=== PATIENT | female | born 1950 | race Caucasian/White ===

== ENCOUNTER → 2016-12-04 | Outpatient (CLI) | payer MEDICARE ==
[~2016-12-04] MED LIST: ALEN70TA47 PO; ALPR0.5T PO; ALPR0.5T7 PO; ASPI-586 PO; BISO1TAB3 PO; BISO1TAB39 PO; BUDE10.2 IH; CALC-722 PO; CANA1TAB3 PO; CODE-54 PO; DIPH1TAB25 PO; ESOM20CA32 PO; EZET10TA5 PO; GABA-488 PO; GLIM4TAB PO; IBUP-30 PO; LOSA100T28 PO; MECL-106 PO; METF500T4 PO; MTF500T PO; OM-31CAP9 PO; ONDA8TAB12 PO; ONDA8TAB6 PO; PROM25TA14 PO; TERB15CR TP; TRIF1TAB PO
--- NOTE | 2016-12-04 14:30 | Diagnostic Imaging Report ---
PROCEDURE: US Bilateral lower extremity arterial. TECHNIQUE: Multiple real-time grayscale images are obtained through both lower extremity arterial systems with color Doppler imaging and color Doppler spectral analysis. INDICATION: Leg discoloration. There are no previous studies available for comparison. There is fairly good arterial blood flow to both lower extremities. Biphasic waveforms were seen at all levels, and there is no abrupt alteration of velocities to suggest a hemodynamically significant stenosis. IMPRESSION: 1. There is no evidence for a hemodynamically significant stenosis of the arterial system of either lower extremity. 2. If clinical concern regarding an underlying abnormality persists, then CTA of of the aorta with bilateral runoffs would be recommended. Dictated by: Dictated on workstation # [id number]
== END ==
LOC: RAD 11:26
PROVIDERS: ATTEND Nurse Practitioner Family
DX: M79.605 Pain in left leg (principal); M79.604 Pain in right leg
CPT/HCPCS: 93925

== ENCOUNTER 2017-01-04 13:05 | Emergency (ER) | payer MEDICARE ==
[~2017-01-04] VITALS: Ht 157.5 cm; Wt 71.2 kg
[~2017-01-04 13:05] MED LIST changes: -TERB15CR TP
[2017-01-04] MEDS ORDERED: morphine INJ 10 MG/ML 1ML (SYR OR VIAL) IM STA (14:16)
--- NOTE | 2017-01-04 14:22 | ED Integumentary General ---
General Chief Complaint: Skin/Wound Problems Stated Complaint: OPEN WOUNDS B FEET Nursing Triage Note: TO ROOM 10 WITH COMPLAINTS OF ONGOING WOUNDS ON BILAT TOP OF FEET FOR 4 MONTHS. HAS SEEN THE DR MULTIPLE TIMES AND HAS BEEN ON X4 DIFFERENT ANTIBIOTICS, CREAMS , STEROIDS. TODAY WENT TO [facility] AND AFTER A WOUND CX AND MAKING AN APPT WITH THE DERMONTOLGIST THEY SENT HER TO THE ER. Source: patient, family Exam Limitations: no limitations History of Present Illness Time seen by provider: 14:00 Initial Comments 66-year-old female presents to the emergency department with complaints of open wounds of the bilateral tops of her feet. Patient states she has been seen by her primary care physician several times and placed on 4 different antibiotics and multiple creams without improvement in symptoms. Patient states she was on a steroid cream for approximately one week, but was unable to tolerate it due to burning. Patient states the only cream that seemed to improve symptoms with Lamisil, that she stopped this at the request of her physician. Patient was seen at [facility] today with cultures obtained. States she was then sent to the emergency department for evaluation. Patient is scheduled to see as an outpatient for further evaluation. Timing/Duration: getting worse, other (4 months) Location: feet Possible Cause: no cause identified Modifying Factors: worse with other (worse with palpation, hot showers, and topical creams.) Allergies and Home Medications Allergies Coded Allergies: Tetanus Vaccines & Toxoid (Unverified Allergy, Severe, 12/17/11) SWOLLEN HOT RED ARM ampicillin (Unverified Allergy, Unknown, 12/20/15) Home Medications Alendronate Sodium 70 Mg Tablet, 70 MG PO Gaines, (Reported) Alprazolam 0.5 Mg Tablet, 0.5 MG PO TID, (Reported) Aspirin 81 Mg Tablet.dr, 81 MG PO DAILY, (Reported) Bisoprolol Fumarate/Hctz 1 Each Tablet, 2 TAB PO DAILY, (Reported) Budesonide/Formoterol Fumarate 10.2 Gm Hfa.aer.ad, 2 PUFF IH BID PRN for SHORTNESS OF BREATH, (Reported) Calcium Carb & Citrate/Vit D3 1 Each Tablet.er, 2 TAB PO DAILY, (Reported) Esomeprazole Magnesium 22.3 Mg Capsule.dr, 22.3 MG PO DAILY, (Reported) Ezetimibe 10 Mg Tablet, 10 MG PO HS, (Reported) Gabapentin 300 Mg Capsule, 600 MG PO TID, (Reported) TAKES 2 (300MG) CAPSULES Glimepiride 4 Mg Tablet, 4 MG PO BID, (Reported) Ibuprofen 200 Mg Tablet, 600 MG PO TID PRN for PAIN, (Reported) TAKES 3 (200MG) TABLETS Losartan Potassium 100 Mg Tablet, 100 MG PO 1900, (Reported) Meclizine HCl 25 Mg Tablet, 25 MG PO TID PRN for DIZZINESS, (Reported) Metformin HCl 500 Mg Tablet, 500 MG PO TIDAC, (Reported) Ondansetron HCl 8 Mg Tablet, 8 MG PO Q8H PRN for NAUSEA, (Reported) Promethazine HCl 25 Mg Tablet, 25 MG PO Q6H PRN for NAUSEA/VOMITING, (Reported) Terbinafine HCl 15 Gm Cream..g., 15 GM TP BID, #1 Ref 1 apply to the affected area BID x4-6 wks. Continue med for 1 wk after symptoms resolve. Prescribed by: ODIN RITCHIE on 01/04/17 1511 Trifluoperazine HCl 1 Mg Tablet, 1 MG PO BID, (Reported) Constitutional: No chills, No fever, No malaise Respiratory: no symptoms reported Cardiovascular: no symptoms reported Gastrointestinal: no symptoms reported Musculoskeletal: see HPI, other (bilateral foot pain) Skin: see HPI, pruritus, rash, other (burning, open wounds.) Psychiatric/Neurological: No Symptoms Reported All Other Systems Reviewed Negative Unless Noted: Yes (Negative excepted noted.) Past [id number] Hx Patient Social History Alcohol Use: Denies Use Recreational Drug Use: No Smoking Status: Current Everyday Smoker Type Used: Cigarettes Recent Foreign Travel: No Contact w/Someone Who Travel: No Recent Infectious Disease Expo: No Recent Hopitalizations: No Immunizations Up To Date Date of Pneumonia Vaccine: Mar 19, 2011 Date of Influenza Vaccine: Mar 19, 2011 Seasonal Allergies Seasonal Allergies: Yes Surgeries History of Surgeries: Yes ( CAROTID 2010) Surgeries: Hysterectomy, Vascular Surgery Respiratory History of Respiratory Disorde: No Respiratory Disorders: COPD Currently Using CPAP: No Currently Using BIPAP: No Cardiovascular History of Cardiac Disorders: Yes Cardiac Disorders: Hypertension, Peripheral Vascular Neurological History of Neurological Disord: Yes Neurological Disorders: Dementia 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 System Hx 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 Disorders: No Genitourinary History of Genitourinary Disor: Yes Genitourinary Disorders: UTI-Chronic Gastrointestinal History of Gastrointestinal Di: Yes Gastrointestinal Disorders: Gastrointestinal Bleed, Diverticulosis, Chronic Diarrhea Musculoskeletal History of Musculoskeletal Dis: Yes (ARTHRITIS) Musculoskeletal Disorders: Degenerate Disk Disease Endocrine History of Endocrine Disorders: Yes (BS 172 BEFORE ADMISSION) Endocrine Disorders: Diabetes, Non-Insulin dep HEENT HEENT Disorders: Cataract Loss of Vision: Denies Cancer History of Cancer: No Psychosocial History of Psychiatric Problem: Yes Behavioral Health Disorders: Anxiety Integumentary History of Skin or Integumenta: No Blood Transfusions History of Blood Disorders: No Family Medical History Significant Family History: No Pertinent Family Hx Family Medial History: Arthritis G8 SISTER G8 SISTER Cataracts 19 MOTHER Diabetes mellitus G8 SISTER FH: COPD (chronic obstructive pulmonary disease) 19 MOTHER FH: CVA (cerebrovascular accident) 19 FATHER FH: heart attack 19 FATHER Glaucoma 19 MOTHER Hypercholesterolemia 19 FATHER Hypertension 19 FATHER Physical Exam Vital Signs Vital Sign - Last 12Hours 01/04/17 13:25 Temp 98.0 Pulse 73 Resp 16 B/P (MAP) 188/87 Pulse Ox 96 Capillary Refill : Less Than 3 Seconds General Appearance: WD/WN, no apparent distress Cardiovascular: normal peripheral pulses, regular rate, rhythm, no murmur Respiratory: lungs clear, normal breath sounds, no respiratory distress, no accessory muscle use Extremities: normal range of motion, no calf tenderness, normal capillary refill, pedal edema (1+ pedal edema bilaterally), other (scaly, erythematous rash of the bilat dorsal feet with several ulcerations. no active drainage or warmth noted.) Neurologic/Psychiatric: no motor/sensory deficits, alert, normal mood/affect, oriented x 3 Skin: normal color, warm/dry, rash (scaly, erythematous rash of the bilat dorsal feet with several ulcerations. no active drainage or warmth noted.) Skin Problem Location: lower extremities (bilat dorsal feet) Skin Problem Character: rash (scaly, erythematous rash of the bilat dorsal feet with several ulcerations. no active drainage or warmth noted.), tenderness Progress/Results/Core Measures Results/Orders My Orders Orders - ODIN RITCHIE Morphine Injection (Morphine Injection (01/04/17 14:16) Oxycodone/Apap 5/325mg Tablet (Percocet (01/04/17 15:16) Vital Signs/I&O Vital Sign - Last 12Hours 01/04/17 01/04/17 13:25 15:46 Temp 98.0 Pulse 73 69 Resp 16 16 B/P (MAP) 188/87 Pulse Ox 96 95 Blood Pressure Mean: 120 Departure Communication (Admissions) Progress Notes Patient seen and evaluated. Patient history and exam findings are consistent with tinea pedis. plan for dsch to home with terbinafine and aluminum acetate. Patient advised to follow-up with Dr. Vera for further management. Impression Impression: Primary Impression: Tinea pedis of both feet Disposition: HOME, SELF-CARE Condition: Improved Departure-Patient Inst. Decision time for Depature: 14:19 Referrals: RACHEL BAKER MD (PCP/Family) Primary Care Physician ALLISON VERA MD Patient Instructions: Athlete's Foot (DC) Add. Discharge Instructions: All discharge instructions reviewed with patient and/or family. Voiced understanding. Medications as instructed. Topical cream may take up to 4-6 wks to resolve the rash. Elevate the bilateral lower extremities on pillows. Avoid soiling the wounds. Change dressings twice daily and as needed for moisture and soiling. Follow-up with Dr. Vera for recheck as previously scheduled. Return to the emergency department for worsened pain, redness, drainage, fever, or any other concerns. Scripts Terbinafine HCl (Athlete's Foot AF) 15 Gm Cream..g. 15 GM TP BID, #1 TUBE 1 Refill apply to the affected area BID x4-6 wks. Continue med for 1 wk after symptoms resolve. Prov: ODIN RITCHIE 01/04/17 Images Extremities-Lower 1 - Rash 2 - Rash ODIN RITCHIE Jan 04, 2017 14:22
[2017-01-04] MEDS ORDERED: TERB15CR TP (15:11)
[2017-01-04] MEDS ORDERED: oxyCODONE/APAP 5/325MG (PERCOCET 5) TABLET PO STA (15:16)
[2017-01-04 15:46] VITALS: BP 152/59
== END 2017-01-04 15:46 | disposition home or self-care (01) ==
LOC: EDUNIT# 13:05 → ER 13:09
DX: B35.3 Tinea pedis (principal); F41.9 Anxiety disorder, unspecified; E11.51 Type 2 diabetes mellitus with diabetic peripheral angiopathy without gangrene; I73.9 Peripheral vascular disease, unspecified; J44.9 Chronic obstructive pulmonary disease, unspecified; M19.90 Unspecified osteoarthritis, unspecified site; F03.90 Unspecified dementia, unspecified severity, without behavioral disturbance, psychotic disturbance, mood disturbance, and anxiety; I10 Essential (primary) hypertension; F17.210 Nicotine dependence, cigarettes, uncomplicated; Z87.19 Personal history of other diseases of the digestive system; Z79.82 Long term (current) use of aspirin; Z79.84 Long term (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 of oral hypoglycemic drugs; Z82.49 Family history of ischemic heart disease and other diseases of the circulatory system; Z87.440 Personal history of urinary (tract) infections; Z90.710 Acquired absence of both cervix and uterus
CPT/HCPCS: 96372; 99284

== ENCOUNTER 2017-03-07 14:53 | Outpatient (RCR) | payer MEDICARE ==
[2017-02-07 14:36] LABS: ABSOLUTE RETIC # 75 10e9/L (24-90); BASOPHILS % (AUTO) 0 % (0-10); EOSINOPHILS # (AUTO) 0.2 10^3/uL (0.0-0.3); EOSINOPHILS % (AUTO) 1 % (0-10); HEMATOCRIT 46 % (35-52); HEMOGLOBIN 16.5 G/DL (11.5-16.0); LYMPHOCYTES # (AUTO) 3.1 X 10^3 (1.0-4.0); LYMPHOCYTES % (AUTO) 22 % (12-44); MEAN CORPUSCULAR HEMOGLOBIN 31 PG (25-34); MEAN CORPUSCULAR HGB CONC 36 G/DL (32-36); MEAN CORPUSCULAR VOLUME 85 FL (80-99); MONOCYTES # (AUTO) 0.8 X 10^3 (0.0-1.0); MONOCYTES % (AUTO) 6 % (0-12); NEUTROPHILS # (AUTO) 9.8 X 10^3 (1.8-7.8); NEUTROPHILS % (AUTO) 71 % (42-75); PLATELET COUNT 169 10^3/uL (130-400); RED BLOOD COUNT 5.41 10^6/uL (4.35-5.85); RED CELL DISTRIBUTION WIDTH 15.3 % (10.0-14.5); RETICULOCYTE % 1.39 % (0.50-2.40); WHITE BLOOD COUNT 13.9 10^3/uL (4.3-11.0)
[2017-02-07 14:55] LABS: ALANINE AMINOTRANSFERASE 17 U/L (0-55); ALKALINE PHOSPHATASE 77 U/L (40-136); BILIRUBIN,TOTAL 0.6 MG/DL (0.1-1.0); BUN/CREATININE RATIO 15; CALCIUM 9.1 MG/DL (8.5-10.1); CARBON DIOXIDE 24 MMOL/L (21-32); CHLORIDE 96 MMOL/L (98-107); CREATININE SERUM 0.84 MG/DL (0.60-1.30); GFR ESTIMATED > 60; GLUCOSE 260 MG/DL (70-105); POTASSIUM 4.3 MMOL/L (3.6-5.0); SODIUM 129 MMOL/L (135-145); TOTAL PROTEIN 7.5 GM/DL (6.4-8.2)
[2017-02-07 15:53] LABS: EOSINOPHILS % (MANUAL) 1 %; LYMPHOCYTES % (MANUAL) 29 %; MONOCYTES % (MANUAL) 4 %; NEUTROPHILS % (MANUAL) 66 %
[2017-02-07 15:54] LABS: RBC MORPH NORMAL
[~2017-03-07 14:53] MED LIST changes: +TERB15CR TP
[2017-03-07 15:01] LABS: BASOPHILS % (AUTO) 0 % (0-10); EOSINOPHILS # (AUTO) 0.2 10^3/uL (0.0-0.3); EOSINOPHILS % (AUTO) 1 % (0-10); HEMATOCRIT 44 % (35-52); HEMOGLOBIN 16.5 G/DL (11.5-16.0); LYMPHOCYTES # (AUTO) 3.5 X 10^3 (1.0-4.0); LYMPHOCYTES % (AUTO) 24 % (12-44); MEAN CORPUSCULAR HEMOGLOBIN 32 PG (25-34); MEAN CORPUSCULAR HGB CONC 37 G/DL (32-36); MEAN CORPUSCULAR VOLUME 85 FL (80-99); MEAN PLATELET VOLUME 8.7 FL (7.4-10.4); MONOCYTES # (AUTO) 0.9 X 10^3 (0.0-1.0); MONOCYTES % (AUTO) 6 % (0-12); NEUTROPHILS % (AUTO) 69 % (42-75); PLATELET COUNT 206 10^3/uL (130-400); RED BLOOD COUNT 5.22 10^6/uL (4.35-5.85); WHITE BLOOD COUNT 14.6 10^3/uL (4.3-11.0)
== END 2017-05-08 | disposition home or self-care (01) ==
LOC: ONC 14:53
PROVIDERS: ATTEND Internal Medicine Hematology & Oncology
DX: D72.829 Elevated white blood cell count, unspecified (principal); D58.2 Other hemoglobinopathies; E11.43 Type 2 diabetes mellitus with diabetic autonomic (poly)neuropathy; I10 Essential (primary) hypertension; E78.00 Pure hypercholesterolemia, unspecified; J44.9 Chronic obstructive pulmonary disease, unspecified; I65.22 Occlusion and stenosis of left carotid artery; I25.10 Atherosclerotic heart disease of native coronary artery without angina pectoris; K21.9 Gastro-esophageal reflux disease without esophagitis; M81.0 Age-related osteoporosis without current pathological fracture; F41.9 Anxiety disorder, unspecified; F32.9 Major depressive disorder, single episode, unspecified; F17.210 Nicotine dependence, cigarettes, uncomplicated; Z90.710 Acquired absence of both cervix and uterus; Z79.899 Other long term (current) drug therapy
CPT/HCPCS: 36415; 80053; 81206; 81270; 83615; 84155; 84165; 85007; 85025; 85027; 85045; 99213; 99214

== ENCOUNTER → 2017-04-26 | Outpatient (CLI) | payer MEDICARE ==
[2017-04-26 10:46] LABS: HEMOGLOBIN 15.8 G/DL (11.5-16.0); MEAN PLATELET VOLUME 8.7 FL (7.4-10.4); RED BLOOD COUNT 5.01 10^6/uL (4.35-5.85); RED CELL DISTRIBUTION WIDTH 14.9 % (10.0-14.5); WHITE BLOOD COUNT 10.6 10^3/uL (4.3-11.0)
[2017-04-26 11:07] LABS: ALANINE AMINOTRANSFERASE 10 U/L (0-55); ALBUMIN 4.1 GM/DL (3.2-4.5); ALKALINE PHOSPHATASE 66 U/L (40-136); BILIRUBIN,TOTAL 0.5 MG/DL (0.1-1.0); BUN/CREATININE RATIO 15; CALCIUM 9.9 MG/DL (8.5-10.1); CARBON DIOXIDE 26 MMOL/L (21-32); CHLORIDE 96 MMOL/L (98-107); CREATININE SERUM 0.82 MG/DL (0.60-1.30); GFR ESTIMATED > 60; GLUCOSE 136 MG/DL (70-105); POTASSIUM 3.9 MMOL/L (3.6-5.0); SODIUM 135 MMOL/L (135-145); TOTAL PROTEIN 7.3 GM/DL (6.4-8.2)
== END ==
LOC: HH 07:00
PROVIDERS: ATTEND Family Medicine
DX: I25.10 Atherosclerotic heart disease of native coronary artery without angina pectoris (principal); E11.9 Type 2 diabetes mellitus without complications; I10 Essential (primary) hypertension
CPT/HCPCS: 80053; 85027

== ENCOUNTER → 2018-05-02 | Outpatient (CLI) | payer MEDICARE ==
[~2018-05-02] MED LIST changes: -LOSA100T28 PO; +LOSA100T8 PO; +METF-397 PO; -METF500T4 PO
--- NOTE | 2018-05-02 13:48 | Diagnostic Imaging Report ---
INDICATION: Left shoulder pain for six months. Time of exam 1:25 p.m. FINDINGS: Three views of the left shoulder were obtained. Glenohumeral and acromioclavicular alignment are normal. There are degenerative changes at the glenohumeral joint with some marginal spurring at the humeral head and neck junction. No fracture or dislocation is seen. Acromiohumeral space is normal. IMPRESSION: Degenerative changes. No acute bony abnormality is detected. Dictated by: Dictated on workstation # [id number]
== END ==
LOC: RAD 12:51
DX: M19.012 Primary osteoarthritis, left shoulder (principal)
CPT/HCPCS: 73030

== ENCOUNTER → 2018-05-07 | Outpatient (CLI) | payer MEDICARE ==
--- NOTE | 2018-05-07 16:26 | Diagnostic Imaging Report ---
PROCEDURE: MRI left upper extremity without contrast. TECHNIQUE: Multiplanar, multisequence MR imaging of the left shoulder was performed without contrast. COMPARISON: Left shoulder radiograph of 05/02/2018. INDICATION: Left shoulder pain. FINDINGS: Rotator cuff: Supraspinatus tendinopathy has a superimposed partial-thickness tear of its interstitial fibers involving approximately 50% of the thickness. The tear measures approximately 1 cm in AP direction. No retracted tendon fibers are present. Infraspinatus and subscapularis tendinopathy is also present without superimposed tears. Teres minor is normal. No rotator cuff muscle atrophy. Glenoid labrum: By non-arthrogram imaging, the glenoid labrum appears intact. No para-labral cyst. Long head of biceps: Long head of biceps is normally positioned within the bicipital groove. The intracapsular segment is intact. Bones and cartilage: Mild posterior subluxation of the humeral head is likely due to degenerative changes within the glenohumeral joint. No full-thickness chondromalacia is appreciated. The acromioclavicular joint is normal in alignment without significant degenerative change. Soft tissues: Small glenohumeral joint effusion. No MRI findings to suggest adhesive capsulitis. No fluid or inflammatory like signal within the subacromial/subdeltoid space to indicate bursitis. IMPRESSION: 1. Supraspinatus tendinopathy has a superimposed intermediate grade partial-thickness interstitial tear of the distal insertional fibers. No associated muscle atrophy. 2. Long head of the biceps is intact. 3. 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 No areas of full-thickness articular cartilage loss. Dictated by: Dictated on workstation # [id number]
== END ==
LOC: RAD 12:09
DX: M75.102 Unspecified rotator cuff tear or rupture of left shoulder, not specified as traumatic (principal); M19.012 Primary osteoarthritis, left shoulder
CPT/HCPCS: 73221

== ENCOUNTER 2018-12-04 09:33 | Emergency (ER) | payer MEDICARE, OTHER ==
[~2018-12-04] VITALS: Ht 165.1 cm; Wt 72.6 kg
[~2018-12-04 09:33] MED LIST changes: -ALEN70TA47 PO; +ALEN70TA5 PO; +LOSA100T57 PO; -LOSA100T8 PO
--- NOTE | 2018-12-04 09:55 | ED Fall/Injury ---
General Chief Complaint: General Problems/Pain Stated Complaint: FALL Source: patient Exam Limitations: no limitations (HENRRY BROWER) History of Present Illness Date Seen by Provider: Dec 04, 2018 Time Seen by Provider: 09:40 Initial Comments Pt presents by EMS with a fall today at home. She reports falling yesterday as well while running to the car. She states she hit her head both days. She hurt her knee and elbow yesterday in the fall. She denies any loss of coconsciousness, new vision changes, headache other than pain from the lump from her fall. She reports having off and on palpitations not everyday, diarrhea and constipation, double vision, pain in her feet, shortness of breath with activity, chronic cough. She smokes about 1ppd cigarettes. She has a history fo diabetes and hypertension for which she takes medications. She is allergic to tetanus toxoid and ampicillin. Occurred: just prior to arrival, yesterday Injuries/Pain Location: head, upper extremity, lower extremity Context: tripped Loss of Consciousness: no loss of consciousness Associated Symptoms (Fall): No Abdominal Pain, No Chest Pain, No Dizziness, No Headache, No Nausea/Vomiting, No Ringing in Ears, No Vision Changes (HENRRY BROWER) Occurred: just prior to arrival, yesterday Injuries/Pain Location: head, upper extremity, lower extremity Loss of Consciousness: no loss of consciousness Associated Symptoms (Fall): No Headache, No Nausea/Vomiting; Neck Pain (MANNY TINEO MD) Allergies and Home Medications Allergies Coded Allergies: Tetanus Vaccines & Toxoid (Unverified Allergy, Severe, 12/17/11) SWOLLEN HOT RED ARM ampicillin (Unverified Allergy, Unknown, 12/20/15) Home Medications Alendronate Sodium 70 Mg Tablet, 70 MG PO Gaines, (Reported) Alprazolam 0.5 Mg Tablet, 0.5 MG PO TID, (Reported) Aspirin 81 Mg Tablet.dr, 81 MG PO DAILY, (Reported) Bisoprolol Fumarate/Hctz 1 Each Tablet, 2 TAB PO DAILY, (Reported) Budesonide/Formoterol Fumarate 10.2 Gm Hfa.aer.ad, 2 PUFF IH BID PRN for SHORTNESS OF BREATH, (Reported) Calcium Carb & Citrate/Vit D3 1 Each Tablet.er, 2 TAB PO DAILY, (Reported) Esomeprazole Magnesium 22.3 Mg Capsule.dr, 22.3 MG PO DAILY, (Reported) Ezetimibe 10 Mg Tablet, 10 MG PO HS, (Reported) Gabapentin 300 Mg Capsule, 600 MG PO TID, (Reported) TAKES 2 (300MG) CAPSULES Glimepiride 4 Mg Tablet, 4 MG PO BID, (Reported) Ibuprofen 200 Mg Tablet, 600 MG PO TID PRN for PAIN, (Reported) TAKES 3 (200MG) TABLETS Losartan Potassium 100 Mg Tablet, 100 MG PO 1900, (Reported) Meclizine HCl 25 Mg Tablet, 25 MG PO TID PRN for DIZZINESS, (Reported) Metformin HCl 500 Mg Tablet, 500 MG PO TIDAC, (Reported) Ondansetron HCl 8 Mg Tablet, 8 MG PO Q8H PRN for NAUSEA, (Reported) Promethazine HCl 25 Mg Tablet, 25 MG PO Q6H PRN for NAUSEA/VOMITING, (Reported) Terbinafine HCl 15 Gm Cream..g., 15 GM TP BID apply to the affected area BID x4-6 wks. Continue med for 1 wk after symptoms resolve. Prescribed by: ODIN RITCHIE on 01/04/17 1511 Trifluoperazine HCl 1 Mg Tablet, 1 MG PO BID, (Reported) Patient Home Medication List Home Medication List Reviewed: Yes (MANNY TINEO MD) Review of Systems Review of Systems Constitutional: chills; No fever Eyes: Denies Blurred Vision; Glasses, Other ([place]iplopia) Ears, Nose, Mouth, Throat: no symptoms reported Respiratory: cough, dyspnea on exertion Gastrointestinal: No abdominal pain; constipation, diarrhea, nausea; No vomiting Genitourinary: no symptoms reported Musculoskeletal: joint pain (Left hip upon walking), neck pain (Degenerative disc disease) Psychiatric/Neurological: Denies Numbness, Denies Paresthesia, Denies Tingling (HENRRY BROWER) All Other Systems Reviewed Negative Unless Noted: Yes (MANNY TINEO MD) Past Bahkjte-Uethme-Ubyead Hx Past Med/Social Hx: Reviewed Nursing Past Med/Soc Hx (MANNY TINEO MD) Patient Social History Alcohol Use: Denies Use Recreational Drug Use: No Smoking Status: Current Everyday Smoker Type Used: Cigarettes Recent Hopitalizations: No (HENRRY BROWER) Immunizations Up To Date Tetanus Booster (TDap): Unknown Date of Pneumonia Vaccine: Mar 19, 2011 Date of Influenza Vaccine: Mar 19, 2011 (HENRRY BROWER) Seasonal Allergies Seasonal Allergies: Yes (HENRRY BROWER) Past Medical History Surgeries: Yes (R CAROTID 2010) Hysterectomy, Vascular Surgery Respiratory: No COPD Currently Using CPAP: No Currently Using BIPAP: No Cardiac: Yes Hypertension, Peripheral Vascular Neurological: Yes Dementia 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 Disorders: No Genitourinary: Yes UTI-Chronic Gastrointestinal: Yes Gastrointestinal Bleed, Diverticulosis, Chronic Diarrhea Musculoskeletal: Yes (ARTHRITIS) Degenerate Disk Disease Endocrine: Yes (BS 172 BEFORE ADMISSION) Diabetes, Non-Insulin dep Cataract Loss of Vision: Denies Cancer: No Psychosocial: Yes Anxiety Integumentary: No Blood Disorders: No (HENRRY BROWER) Family Medical History Reviewed Nursing Family Hx (MANNY TINEO MD) Arthritis G8 SISTER G8 SISTER Cataracts 19 MOTHER Diabetes mellitus G8 SISTER FH: COPD (chronic obstructive pulmonary disease) 19 MOTHER FH: CVA (cerebrovascular accident) 19 FATHER FH: heart attack 19 FATHER Glaucoma 19 MOTHER Hypercholesterolemia 19 FATHER Hypertension 19 FATHER No Pertinent Family Hx (HENRRY BROWER) Physical Exam Vital Signs Vital Signs - First Documented 12/04/18 09:35 Temp 97.6 Pulse 78 Resp 16 B/P (MAP) 180/65 (103) Pulse Ox 95 O2 Delivery Room Air (MANNY TINEO MD) Vital Signs Capillary Refill : (HENRRY BROWER) Height, Weight, BMI Height: 5'2.00" Weight: 157lbs. 6.0oz. 71.005486df; 27.29 BMI Method:Stated General Appearance: WD/WN, mild distress Neck: non-tender Cardiovascular: normal peripheral pulses, regular rate, rhythm, no edema, no JVD Respiratory: chest non-tender, no respiratory distress, no accessory muscle use Peripheral Pulses: 2+ Dorsalis Pedis (R), 2+ Left Dors-Pedis (L), 2+ Radial Pulses (R), 2+ Radial Pulses (L) Back: no CVA tenderness, no vertebral tenderness Neurologic/Psychiatric: alert, normal mood/affect, oriented x 3 (HENRRY BROWER) General Appearance: WD/WN, mild distress HEENT: PERRL/EOMI, pharynx normal Neck: non-tender, full range of motion, supple, normal inspection Cardiovascular: regular rate, rhythm, no edema Respiratory: chest non-tender, no respiratory distress Back: no CVA tenderness, no vertebral tenderness Extremities: other (tenderness to the left elbow. Tenderness with abrasion and swelling to the left knee especially the anterior portion. Full range of motion left hip. Does complain of some pain otherwise though.) Neurologic/Psychiatric: alert, normal mood/affect, oriented x 3 Skin: warm/dry, ecchymosis (left knee and forehead on the left), other (abrasions on the left knee) (MANNY TINEO MD) [place] Coma Score Best Eye Response: (4) Open Spontaneously Best Verbal Response: (5) Oriented Best Motor Response: (6) Obeys Commands (MANNY TINEO MD) Progress/Results/Core Measures Results/Orders My Orders Orders - MANNY TINEO MD Ct Head/Cervical Spine Wo (12/04/18 09:52) Elbow, Left, 3 Views (12/04/18 09:52) Knee, Left, 3 Views (12/04/18 09:52) Pelvis With Left Hip 2-3 Views (12/04/18 09:52) (MANNY TINEO MD) Vital Signs/I&O 12/04/18 09:35 Temp 97.6 Pulse 78 Resp 16 B/P (MAP) 180/65 (103) Pulse Ox 95 O2 Delivery Room Air (MANNY TINEO MD) Progress Progress Note : Time: 09:40 Progress Note Seen and evaluated by me. Pt appears in mild distress with significant contusion to the forehead along with abrasions to her left elbow and left knee. Head/neck CT, X-ray of left elbow, pelvis, left knee order by Dr. Tineo. [facility] Progress Note : Progress Note I seen and evaluated the patient and agree with above except as indicated. I have directed the plan of care. We will get CT of the head and neck as well as x-ray of the left elbow, left knee and pelvis with left hip. Tetanus is up-to-date as of 2017. Monitor patient. 1120: All x-rays and CTs reviewed. No acute fractures and no intracranial injury. I did discuss findings and concerns with the patient and family. I do have concerns about her risk of falls. She does follow with Dr. Baker. I have recommended her to follow-up with him to potentially get home health evaluation for safety of home for tripping hazards as well as possibly getting physical therapy for balance and gait training. She will discuss this with her doctor. I will send a copy of the chart to him. Wound redressed after cleaning and covered with antibiotic ointment. Discharged home with return precautions. Patient and family verbalize understanding instructions and agreement with plan. (MANNY TINEO MD) Diagnostic Imaging Diagonstic Imaging: CT Plain Films/CT/US/NM/MRI: c-spine, head Comments [facility], [place] NAME: KIMBERLY HYMAN [facility] REC#: [id number] PT STATUS: REG ER : 1950 PHYSICIAN: MANNY TINEO MD ADMIT DATE: 12/04/18/ER Draft Date of Exam:12/04/18 CT HEAD/CERVICAL SPINE WO PROCEDURE: CT head and CT cervical spine without contrast. TECHNIQUE: Multiple contiguous axial images were obtained through the brain and cervical spine without the use of intravenous contrast. Sagittal and coronal reformations through the cervical spine were then performed. Auto Exposure Controls were utilized during the CT exam to meet ALARA standards for radiation dose reduction. INDICATION: Multiple recurrent falls. Head and neck pain. No relevant comparisons. There is a mild degree of cerebral cortical atrophy, not unremarkable given the patient's age. There is no hemorrhage and there are no abnormal extra-axial fluid collections. There is no focal or generalized cerebral edema. There is no evidence for elevation of the intracranial pressures, the basilar cisterns are patent. There is no sulcal effacement. No paranasal sinus air-fluid level. CT cervical spine: There was no fracture, substantial stenosis or traumatic malalignment. Prior carotid endarterectomies and atherosclerosis noted. IMPRESSION: CT head: No hemorrhage, edema or acute finding. CT cervical spine: No fracture, stenosis or traumatic malalignment. Dictated on workstation # [id number] Dict: 12/04/18 1022 Trans: 12/04/18 1039 [id number] [id number] Interpreted by: PATIENCE BOSWELL Electronically signed by: Diagonstic Imaging: Xray Plain Films/CT/US/NM/MRI: knee Comments [facility] [place] NAME: KIMBERLY HYMAN [facility] REC#: [id number] PT STATUS: REG ER : 1950 PHYSICIAN: MANNY TINEO MD ADMIT DATE: 12/04/18/ER Draft Date of Exam:12/04/18 KNEE, LEFT, 3 VIEWS INDICATION: Multiple falls and left knee pain. TIME OF EXAM: 10:27 AM 3 views of left knee were obtained. FINDINGS: There is tricompartmental degenerative change with joint space narrowing and marginal spurring, greatest involving the medial compartment. There is spurring of the tibial spines. No fracture, dislocation or effusion is seen. IMPRESSION: Degenerative changes. No acute bony abnormality is detected. Dictated on workstation # [id number] Dict: 12/04/185 Trans: 12/04/[address] [place] [address] [id number] Interpreted by: ASHA SOTO MD Electronically signed by: Diagonstic Imaging: Xray Plain Films/CT/US/NM/MRI: pelvis, hip Comments [facility] [place] NAME: KIMBERLY HYMAN [facility] REC#: [id number] PT STATUS: REG ER : 1950 PHYSICIAN: MANNY TINEO MD ADMIT DATE: 12/04/18/ER Draft Date of Exam:12/04/18 PELVIS WITH LEFT HIP 2-3 VIEWS INDICATION: Multiple falls and pelvic pain. Time of exam: 10:24 AM AP view of the pelvis and two views of the left hip were obtained. Femoral acetabular alignment is normal. Both femoral heads and necks are intact. No fractures are seen. The rami appear to be intact. SI joints and symphysis are non-widened. IMPRESSION: No acute bony abnormality is detected. Dictated on workstation # [id number] Dict: 12/04/18 1036 Trans: 12/04/[address] [place] [address] [phone] Interpreted by: ASHA SOTO MD Electronically signed by: Jeannagonsluiz Imaging: Xray Plain Films/CT/US/NM/MRI: elbow Comments [facility] [place], [place] NAME: KIMBERLY HYMAN [facility] REC#: [id number] PT STATUS: REG ER : 1950 PHYSICIAN: MANNY TINEO MD ADMIT DATE: 12/04/18/ER Draft Date of Exam:12/04/18 ELBOW, LEFT, 3 VIEWS INDICATION: Multiple falls and left elbow pain. Time of exam: 10:29 AM 3 views of the left elbow were obtained. Alignment is normal. No fracture, dislocation or effusion is seen. IMPRESSION: No acute bony abnormality is detected. Dictated on workstation # [id number] Dict: 12/04/18 1034 Trans: 12/04/18 1041 [id number] Interpreted by: ASHA SOTO MD Electronically signed by: (HENRRY BROWER [facility]) Departure Impression Primary Impression: Forehead contusion Qualified Codes: S00.83XA - Contusion of other part of head, initial encounter Additional Impressions: Contusion of left knee Qualified Codes: S80.02XA - Contusion of left knee, initial encounter Contusion of left elbow, initial encounter Disposition: 01 HOME, SELF-CARE Condition: Against Medical Advice Departure-Patient Inst. Decision time for Depature: 11:22 (MANNY TINEO MD) Referrals: RACHEL BAKER MD (PCP/Family) Primary Care Physician Patient Instructions: Contusion (DC), Minor Head Injury (DC) Add. Discharge Instructions: All discharge instructions reviewed with patient and/or family. Voiced understanding. Follow-up with your doctor for recheck and further evaluation. Discussed with your Dr. about possible home health evaluation for safety and fall hazards in the home. Also discussed with your doctor about referral to physical therapy for balance and gait training to decrease your risk of falls. You may cover wounds once or twice daily with antibiotic ointment and dressing. It is okay to shower. You should use your walker at all times when moving about. Copy Copies To 1: RACHEL BAKER MD, [facility] Dec 04, 2018 09:54 MANNY TINEO MD Dec 04, 2018 11:12
--- NOTE | 2018-12-04 10:40 | Diagnostic Imaging Report ---
PROCEDURE: CT head and CT cervical spine without contrast. TECHNIQUE: Multiple contiguous axial images were obtained through the brain and cervical spine without the use of intravenous contrast. Sagittal and coronal reformations through the cervical spine were then performed. Auto Exposure Controls were utilized during the CT exam to meet ALARA standards for radiation dose reduction. INDICATION: Multiple recurrent falls. Head and neck pain. No relevant comparisons. There is a mild degree of cerebral cortical atrophy, not unremarkable given the patient's age. There is no hemorrhage and there are no abnormal extra-axial fluid collections. There is no focal or generalized cerebral edema. There is no evidence for elevation of the intracranial pressures, the basilar cisterns are patent. There is no sulcal effacement. No paranasal sinus air-fluid level. CT cervical spine: There was no fracture, substantial stenosis or traumatic malalignment. Prior carotid endarterectomies and atherosclerosis noted. IMPRESSION: CT head: No hemorrhage, edema or acute finding. CT cervical spine: No fracture, stenosis or traumatic malalignment. Dictated by: Dictated on workstation # [id number]
--- NOTE | 2018-12-04 10:42 | Diagnostic Imaging Report ---
INDICATION: Multiple falls and left elbow pain. Time of exam: 10:29 AM 3 views of the left elbow were obtained. Alignment is normal. No fracture, dislocation or effusion is seen. IMPRESSION: No acute bony abnormality is detected. Dictated by: Dictated on workstation # [id number]
--- NOTE | 2018-12-04 10:46 | Diagnostic Imaging Report ---
INDICATION: Multiple falls and pelvic pain. Time of exam: 10:24 AM AP view of the pelvis and two views of the left hip were obtained. Femoral acetabular alignment is normal. Both femoral heads and necks are intact. No fractures are seen. The rami appear to be intact. SI joints and symphysis are non-widened. IMPRESSION: No acute bony abnormality is detected. Dictated by: Dictated on workstation # [id number]
--- NOTE | 2018-12-04 11:02 | Diagnostic Imaging Report ---
INDICATION: Multiple falls and left knee pain. TIME OF EXAM: 10:27 AM 3 views of left knee were obtained. FINDINGS: There is tricompartmental degenerative change with joint space narrowing and marginal spurring, greatest involving the medial compartment. There is spurring of the tibial spines. No fracture, dislocation or effusion is seen. IMPRESSION: Degenerative changes. No acute bony abnormality is detected. Dictated by: Dictated on workstation # [id number]
[2018-12-04 11:25] VITALS: BP 180/65
== END 2018-12-04 11:26 | disposition home or self-care (01) ==
LOC: EDUNIT# 09:33 → ER 09:34
DX: S00.83XA Contusion of other part of head, initial encounter (principal); S80.02XA Contusion of left knee, initial encounter; S50.02XA Contusion of left elbow, initial encounter; I10 Essential (primary) hypertension; J44.9 Chronic obstructive pulmonary disease, unspecified; E11.51 Type 2 diabetes mellitus with diabetic peripheral angiopathy without gangrene; F03.90 Unspecified dementia, unspecified severity, without behavioral disturbance, psychotic disturbance, mood disturbance, and anxiety; F41.9 Anxiety disorder, unspecified; F17.210 Nicotine dependence, cigarettes, uncomplicated; Z87.440 Personal history of urinary (tract) infections; Z87.19 Personal history of other diseases of the digestive system; Z88.1 Allergy status to other antibiotic agents; Z88.7 Allergy status to serum and vaccine; Z79.82 Long term (current) use of aspirin; Z79.84 Long term (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 of oral hypoglycemic drugs; Z90.710 Acquired absence of both cervix and uterus; Z82.49 Family history of ischemic heart disease and other diseases of the circulatory system; W01.198A Fall on same level from slipping, tripping and stumbling with subsequent striking against other object, initial encounter; Y93.02 Activity, running; Y92.009 Unspecified place in unspecified non-institutional (private) residence as the place of occurrence of the external cause
CPT/HCPCS: 70450; 72125; 73080; 73562

== ENCOUNTER 2018-12-06 18:31 | Observation (INO) | payer MEDICARE ==
[~2018-12-06] VITALS: Ht 165.1 cm; Wt 74.4 kg
--- NOTE | 2018-12-06 18:53 | NUR ---
report given to ANDREAS Singh.
--- NOTE | 2018-12-06 19:22 | ED Fall/Injury ---
General Chief Complaint: Trauma-Non Activation Stated Complaint: CONSTANTLY FALLING,HIT HEAD, Nursing Triage Note: hematoma to R eye History of Present Illness Date Seen by Provider: Dec 06, 2018 Time Seen by Provider: 18:40 Initial Comments 68 year old female returns for persistent falls. She was seen and evaluated here 2 days ago for the same issues. She is not using a walker at all times, as she was instructed. Family is checking on her regularly but not staying with her 24 hours/day. She is having trouble doing ADLs and using a walker. She is open to moving to Assisted Living. The fall today resulted in an injury to her right eye. She denies any other injuries. She continues to have pain in her left hand and left knee from the fall earlier this week. She reports trying to move quickly, then losing her balance and falling. She is diabetic, but isn't eating regularly or taking her medication. She was recently started on Cefdinir, but family is unsure why. She does not have an emergency alert button, for when she falls at home. Location Injury Occurred: home Occurred: this afternoon Severity: mild Injuries/Pain Location: face Context: unknown Loss of Consciousness: no loss of consciousness Associated Symptoms (Fall): Denies Symptoms; No Chest Pain, No Confusion, No Dizziness; Headache; No Muscle Spasms, No Neck Pain, No Shortness of Air, No Slurred Speech, No Vision Changes Allergies and Home Medications Allergies Coded Allergies: Tetanus Vaccines & Toxoid (Unverified Allergy, Severe, 12/17/11) SWOLLEN HOT RED ARM ampicillin (Unverified Allergy, Unknown, 12/20/15) Home Medications Alendronate Sodium 70 Mg Tablet, 70 MG PO Gaines, (Reported) Alprazolam 0.5 Mg Tablet, 0.5 MG PO TID, (Reported) Aspirin 81 Mg Tablet.dr, 81 MG PO DAILY, (Reported) Bisoprolol Fumarate/Hctz 1 Each Tablet, 2 TAB PO DAILY, (Reported) Budesonide/Formoterol Fumarate 10.2 Gm Hfa.aer.ad, 2 PUFF IH BID PRN for SHORTNESS OF BREATH, (Reported) Calcium Carb & Citrate/Vit D3 1 Each Tablet.er, 2 TAB PO DAILY, (Reported) Esomeprazole Magnesium 22.3 Mg Capsule.dr, 22.3 MG PO DAILY, (Reported) Ezetimibe 10 Mg Tablet, 10 MG PO HS, (Reported) Gabapentin 300 Mg Capsule, 600 MG PO TID, (Reported) TAKES 2 (300MG) CAPSULES Glimepiride 4 Mg Tablet, 4 MG PO BID, (Reported) Ibuprofen 200 Mg Tablet, 600 MG PO TID PRN for PAIN, (Reported) TAKES 3 (200MG) TABLETS Losartan Potassium 100 Mg Tablet, 100 MG PO 1900, (Reported) Meclizine HCl 25 Mg Tablet, 25 MG PO TID PRN for DIZZINESS, (Reported) Metformin HCl 500 Mg Tablet, 500 MG PO TIDAC, (Reported) Ondansetron HCl 8 Mg Tablet, 8 MG PO Q8H PRN for NAUSEA, (Reported) Promethazine HCl 25 Mg Tablet, 25 MG PO Q6H PRN for NAUSEA/VOMITING, (Reported) Terbinafine HCl 15 Gm Cream..g., 15 GM TP BID apply to the affected area BID x4-6 wks. Continue med for 1 wk after symptoms resolve. Prescribed by: ODIN RITCHIE on 01/04/17 1511 Trifluoperazine HCl 1 Mg Tablet, 1 MG PO BID, (Reported) Patient Home Medication List Home Medication List Reviewed: Yes Review of Systems Review of Systems Constitutional: no symptoms reported, see HPI All Other Systems Reviewed Negative Unless Noted: Yes Past Ypazikf-Gybmfu-Jckhfa Hx Past Med/Social Hx: Reviewed Nursing Past Med/Soc Hx Patient Social History Alcohol Use: Denies Use Recreational Drug Use: No Smoking Status: Current Everyday Smoker Type Used: Cigarettes Recent Foreign Travel: No Contact w/Someone Who Travel: No Recent Infectious Disease Expo: No Recent Hopitalizations: No Physical Abuse: No Sexual Abuse: No Immunizations Up To Date Tetanus Booster (TDap): Unknown Date of Pneumonia Vaccine: Mar 19, 2011 Date of Influenza Vaccine: Mar 19, 2011 Seasonal Allergies Seasonal Allergies: Yes Past Medical History Surgeries: Yes (R 2010) Hysterectomy, Vascular Surgery Respiratory: No COPD Currently Using CPAP: No Currently Using BIPAP: No Cardiac: Yes Hypertension, Peripheral Vascular Neurological: Yes Dementia 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 Disorders: No Genitourinary: Yes UTI-Chronic Gastrointestinal: Yes Gastrointestinal Bleed, Diverticulosis, Chronic Diarrhea Musculoskeletal: Yes (ARTHRITIS) Degenerate Disk Disease Endocrine: Yes (BS 172 BEFORE ADMISSION) Diabetes, Non-Insulin dep Cataract Loss of Vision: Denies Cancer: No Psychosocial: Yes Anxiety Integumentary: No Blood Disorders: No Family Medical History Arthritis G8 SISTER G8 SISTER Cataracts 19 MOTHER Diabetes mellitus G8 SISTER FH: COPD (chronic obstructive pulmonary disease) 19 MOTHER FH: CVA (cerebrovascular accident) 19 FATHER FH: heart attack 19 FATHER Glaucoma 19 MOTHER Hypercholesterolemia 19 FATHER Hypertension 19 FATHER No Pertinent Family Hx Physical Exam Vital Signs Vital Signs - First Documented 12/06/18 18:35 Temp 98.5 Pulse 78 Resp 18 B/P (MAP) 142/54 (83) Pulse Ox 96 O2 Delivery Room Air Capillary Refill : Less Than 3 Seconds Height, Weight, BMI Height: 5'5.00" Weight: 160lbs. 6.0oz. [id number]; 27.29 BMI Method:Stated General Appearance: WD/WN, no apparent distress HEENT: PERRL/EOMI, normal ENT inspection, TMs normal, pharynx normal, other (hematoma noted to nose, bilat eyes. ) Neck: non-tender, full range of motion, supple, normal inspection Cardiovascular: normal peripheral pulses, regular rate, rhythm, no murmur Respiratory: chest non-tender, lungs clear, normal breath sounds Gastrointestinal: normal bowel sounds, non tender, soft Extremities: normal range of motion, normal inspection, normal capillary refill Neurologic/Psychiatric: biophysics teacher II-XII nml as tested (grossly intact), no motor/sensory deficits, alert, normal mood/affect Skin: normal color, warm/dry, ecchymosis (to eyes, nose and forehead) Brayden Coma Score Best Eye Response: (4) Open Spontaneously Best Verbal Response: (5) Oriented Best Motor Response: (6) Obeys Commands [place] Total: 15 Progress/Results/Core Measures Results/Orders Lab Results Laboratory Tests Test 12/06/18 19:17 12/06/18 19:33 Range/Units Urine Color YELLOW Urine Clarity CLEAR Urine pH 5 5-9 Urine Specific [place] 1.020 1.016-1.022 Urine Protein 2+ H NEGATIVE Urine Glucose (UA) 1+ H NEGATIVE Urine Ketones NEGATIVE NEGATIVE Urine Nitrite NEGATIVE NEGATIVE Urine Bilirubin NEGATIVE NEGATIVE Urine Urobilinogen NORMAL NORMAL MG/DL Urine Leukocyte Esterase 1+ H NEGATIVE Urine RBC (Auto) NEGATIVE NEGATIVE Urine RBC NONE /HPF Urine WBC 10-20 /HPF Urine Squamous Epithelial Cells >50 H /HPF Urine Crystals NONE /LPF Urine Bacteria MODERATE H /HPF Urine Casts NONE /LPF Urine Mucus NEGATIVE /LPF Urine Culture Indicated YES White Blood Count 10.5 4.3-11.0 10^3/uL Red Blood Count 4.62 4.35-5.85 10^6/uL Hemoglobin 14.0 11.5-16.0 G/DL Hematocrit 39 35-52 % Mean Corpuscular Volume 84 80-99 FL Mean Corpuscular Hemoglobin 30 25-34 PG Mean Corpuscular Hemoglobin Concent 36 32-36 G/DL Red Cell Distribution Width 15.2 H 10.0-14.5 % Platelet Count 179 130-400 10^3/uL Mean Platelet Volume 9.2 7.4-10.4 FL Neutrophils (%) (Auto) 75 42-75 % Lymphocytes (%) (Auto) 15 12-44 % Monocytes (%) (Auto) 7 0-12 % Eosinophils (%) (Auto) 2 0-10 % Basophils (%) (Auto) 0 0-10 % Neutrophils # (Auto) 7.9 H 1.8-7.8 X 10^3 Lymphocytes # (Auto) 1.6 1.0-4.0 X 10^3 Monocytes # (Auto) 0.7 0.0-1.0 X 10^3 Eosinophils # (Auto) 0.2 0.0-0.3 10^3/uL Basophils # (Auto) 0.0 0.0-0.1 10^3/uL Sodium Level 134 L 135-145 MMOL/L Potassium Level 4.3 3.6-5.0 MMOL/L Chloride Level 101 98-107 MMOL/L Carbon Dioxide Level 18 L 21-32 MMOL/L Anion Gap 15 H 5-14 MMOL/L Blood Urea Nitrogen 35 H 7-18 MG/DL Creatinine 1.69 H 0.60-1.30 MG/DL Estimat Glomerular Filtration Rate 30 BUN/Creatinine Ratio 21 Glucose Level 224 H 70-105 MG/DL Calcium Level 9.9 8.5-10.1 MG/DL Corrected Calcium 9.7 8.5-10.1 MG/DL Total Bilirubin 0.6 0.1-1.0 MG/DL Aspartate Amino Transf (AST/SGOT) 17 5-34 U/L Alanine Aminotransferase (ALT/SGPT) 20 0-55 U/L Alkaline Phosphatase 66 40-136 U/L Total Protein 6.9 6.4-8.2 GM/DL Albumin 4.2 3.2-4.5 GM/DL My Orders Orders - ANNIE CASIANO Cbc With Automated Diff (12/06/18 19:04) Comprehensive Metabolic Panel (12/06/18 19:04) Ua Culture If Indicated (12/06/18 19:04) Urine Culture (12/06/18 19:17) Vital Signs/I&O 12/06/18 18:35 Temp 98.5 Pulse 78 Resp 18 B/P (MAP) 142/54 (83) Pulse Ox 96 O2 Delivery Room Air 2 Blood Pressure Mean: 83 Progress Progress Note : Time: 18:40 Progress Note Patient seen and evaluated, discussed at length with the family the importance of someone being with her 24 hours a day until they can place her at assisted living. It would also be beneficial to have a life alert, she could wear to push if she falls. Will obtain labs and reevaluate. Ice pack to face. 1914 Daughter in law is DPOA, requesting to consider admission until they can find her assisted living placement. 1939 Labs essentially negative, Creatinine elevated from previous labs. Patient taking 2nd glass of water. No new complaints. 1999 Awaiting UA, took 2 people to assist patient to commode. [address] Arango, will evaluate for ARU. Agreed to admit to Medical for Observation. Discussed this with the patient and patient's family, they were agreeable. 2100 patient continuing to drink water, awaiting bed placement, son went to obtain food for the patient. Will give insulin 5 units subcutaneous when food has arrived. Departure Impression Primary Impression: Recurrent falls Additional Impressions: Hyperglycemia Weakness generalized Disposition: ADMITTED INPATIENT Condition: Stable Admissions Decision to Admit Reason: Admit from ER (General) Decision to Admit/Date: Dec 06, 2018 Time/Decision to Admit Time: 20:30 Departure-Patient Inst. Referrals: RACHEL BAKER MD (PCP/Family) Primary Care Physician Copy Copies To 1: RACHEL BAKER MD, AMY ARNP Dec 06, 2018 19:22
[2018-12-06 19:23] LABS: BILIRUBIN,URINE NEGATIVE (NEGATIVE); CLARITY,URINE CLEAR; COLOR,URINE YELLOW; GLUCOSE, URINE (UA) 1+ (NEGATIVE); KETONES,URINE NEGATIVE (NEGATIVE); LEUKOCYTE ESTERASE ,URINE 1+ (NEGATIVE); NITRITE,URINE NEGATIVE (NEGATIVE); PH,URINE 5 (5-9); PROTEIN,URINE 2+ (NEGATIVE); UROBILINOGEN,URINE NORMAL (NORMAL)
[2018-12-06 19:47] LABS: BASOPHILS % (AUTO) 0 % (0-10); EOSINOPHILS # (AUTO) 0.2 10^3/uL (0.0-0.3); EOSINOPHILS % (AUTO) 2 % (0-10); HEMATOCRIT 39 % (35-52); LYMPHOCYTES # (AUTO) 1.6 X 10^3 (1.0-4.0); LYMPHOCYTES % (AUTO) 15 % (12-44); MEAN CORPUSCULAR HEMOGLOBIN 30 PG (25-34); MEAN CORPUSCULAR HGB CONC 36 G/DL (32-36); MEAN CORPUSCULAR VOLUME 84 FL (80-99); MEAN PLATELET VOLUME 9.2 FL (7.4-10.4); MONOCYTES # (AUTO) 0.7 X 10^3 (0.0-1.0); MONOCYTES % (AUTO) 7 % (0-12); NEUTROPHILS # (AUTO) 7.9 X 10^3 (1.8-7.8); NEUTROPHILS % (AUTO) 75 % (42-75); PLATELET COUNT 179 10^3/uL (130-400); RED CELL DISTRIBUTION WIDTH 15.2 % (10.0-14.5); WHITE BLOOD COUNT 10.5 10^3/uL (4.3-11.0)
[2018-12-06 20:00] LABS: ALBUMIN 4.2 GM/DL (3.2-4.5); BILIRUBIN,TOTAL 0.6 MG/DL (0.1-1.0); CALCIUM 9.9 MG/DL (8.5-10.1); CREATININE SERUM 1.69 MG/DL (0.60-1.30); POTASSIUM 4.3 MMOL/L (3.6-5.0); TOTAL PROTEIN 6.9 GM/DL (6.4-8.2)
[2018-12-06 20:39] LABS: BACTERIA,URINE MODERATE /HPF; SQUAMOUS EPITHELIAL CELL,UR >50 /HPF
[2018-12-06] MEDS ORDERED: inSUlin (REGULAR) HUMAN 1 UNIT/0.01 ML (CHARGE PER UNIT) SC STA (21:38)
[2018-12-06 22:20] VITALS: BP 160/78
[2018-12-06] MEDS ORDERED: NS IV 1000 ML 1,000 ML IV SCH (22:30)
[2018-12-06] MEDS ORDERED: MECLIZINE 25 MG (ANTIVERT) TAB PO PRN (22:30)
[2018-12-06] MEDS ORDERED: ONDANSETRON 4 MG/2 ML (SDV) Z0FRAN IV PRN (22:30)
[2018-12-06] MEDS ORDERED: ACETAMINOPHEN 325 MG TABLET PO PRN (22:30)
--- NOTE | 2018-12-06 22:30 | NUR ---
KIMBERLY HYMAN Yoav admitted to room 412-1, with an admitting diagnosis of MULTIPLE FALLS, WEAKNESS, HYPERGLYCEMIA, DECONDITIONED, on 12/06/18 from ED via , accompanied by STAFF & 2 SONS.KIMBERLY HYMAN introduced to surroundings, call light, bed controls, phone, TV, temperature control, lights, meal times, smoking policy, visitor policy, side rail policy, bathrooms and showers. Patient Rights given to patient in the handbook. KIMBERLY HYMAN verbalizes understanding that [facility] is not responsible for the loss or damage to any personal effects or valuables that are kept in the patient's possession during their hospitalization. THE PATIENT'S PLAN OF CARE WAS DISCUSSED WITH THE PATIENT, SHE AGREES TO THE PLAN, & DENIES ANY QUESTIONS OR CONCERNS. KIMBERLY HYMAN verbalizes understanding of Interdisciplinary Patient Education. Patient and/or family were informed about the Rapid Response Team and its purpose.
[2018-12-06] MEDS: CIPROFLOXACIN 500 MG (CIPRO) TABLET PO SCH (23:18)
[2018-12-07] VITALS (7 sets, daily range): BP systolic 133–187; BP diastolic 73–80
[2018-12-07 05:46] LABS: BASOPHILS % (AUTO) 0 % (0-10); EOSINOPHILS # (AUTO) 0.2 10^3/uL (0.0-0.3); EOSINOPHILS % (AUTO) 3 % (0-10); HEMATOCRIT 38 % (35-52); HEMOGLOBIN 13.4 G/DL (11.5-16.0); LYMPHOCYTES # (AUTO) 1.3 X 10^3 (1.0-4.0); LYMPHOCYTES % (AUTO) 17 % (12-44); MEAN CORPUSCULAR HEMOGLOBIN 30 PG (25-34); MEAN CORPUSCULAR HGB CONC 35 G/DL (32-36); MEAN CORPUSCULAR VOLUME 85 FL (80-99); MEAN PLATELET VOLUME 9.3 FL (7.4-10.4); MONOCYTES # (AUTO) 0.7 X 10^3 (0.0-1.0); MONOCYTES % (AUTO) 9 % (0-12); NEUTROPHILS # (AUTO) 5.3 X 10^3 (1.8-7.8); NEUTROPHILS % (AUTO) 70 % (42-75); PLATELET COUNT 162 10^3/uL (130-400); RED CELL DISTRIBUTION WIDTH 15.2 % (10.0-14.5); WHITE BLOOD COUNT 7.5 10^3/uL (4.3-11.0)
[2018-12-07 06:13] LABS: ALBUMIN 3.8 GM/DL (3.2-4.5); BILIRUBIN,TOTAL 0.5 MG/DL (0.1-1.0); CALCIUM 9.4 MG/DL (8.5-10.1); CREATININE SERUM 1.48 MG/DL (0.60-1.30); POTASSIUM 3.7 MMOL/L (3.6-5.0); TOTAL PROTEIN 6.6 GM/DL (6.4-8.2)
[2018-12-07] MEDS ORDERED: metFORMIN 500 MG (GLUCOPHAGE) TAB PO SCH (07:00)
[2018-12-07] MEDS: CIPROFLOXACIN 500 MG (CIPRO) TABLET PO SCH ×2 (09:14→20:43)
[2018-12-07] MEDS: GABAPENTIN 600 MG (NEURONTIN) TAB PO SCH ×3 (09:15→20:43)
[2018-12-07] MEDS: inSUlin ASPART (NovoLOG) 1 UNIT/0.01 ML (CHARGE PER UNIT) SC SCH ×4 (09:15→21:59)
[2018-12-07 11:53] LABS: BASOPHILS % (AUTO) 0 % (0-10); EOSINOPHILS # (AUTO) 0.2 10^3/uL (0.0-0.3); EOSINOPHILS % (AUTO) 2 % (0-10); HEMATOCRIT 39 % (35-52); HEMOGLOBIN 13.9 G/DL (11.5-16.0); LYMPHOCYTES % (AUTO) 13 % (12-44); MEAN CORPUSCULAR HEMOGLOBIN 30 PG (25-34); MEAN CORPUSCULAR HGB CONC 36 G/DL (32-36); MEAN CORPUSCULAR VOLUME 85 FL (80-99); MEAN PLATELET VOLUME 9.2 FL (7.4-10.4); MONOCYTES # (AUTO) 0.6 X 10^3 (0.0-1.0); MONOCYTES % (AUTO) 7 % (0-12); NEUTROPHILS # (AUTO) 6.3 X 10^3 (1.8-7.8); NEUTROPHILS % (AUTO) 78 % (42-75); PLATELET COUNT 162 10^3/uL (130-400); RED CELL DISTRIBUTION WIDTH 15.1 % (10.0-14.5); WHITE BLOOD COUNT 8.1 10^3/uL (4.3-11.0)
--- NOTE | 2018-12-07 11:58 | History & Physical-Hospitalist ---
History of Present Illness HPI/Chief Complaint Chief complaint: Fall in need of inpatient rehab and transfer to assisted living History of present illness: This is a 68-year-old white female clinic patient of Dr. Benavides who has a past medical history of diabetes mellitus, asthma, neuropathy, hypertension and chronic pain syndrome who presents to [facility] ER with complaints of multiple falls at home with weakness and severe hyperglycemia with evidence of UTI. Family tried to get her to change to Dr. Donovan in the past but patient ultimately returned back to her former doctor. She sees Dr. Herrera on a regular basis for shoulder pain and family is concer cinthia that she does not take her medicine like she should and when they talked her on the phone she sounds drunk after taking both Xanax and gabapentin. She sees Dr. Springer for cardiology she is had a bilateral carotid endarterectomy and those are managed with carotid ultrasound by Dr. Springer. Family thinks that she is overmedicated and they are interested in minimizing her home medications. At this current time patient reports that she is very anxious and request her Xanax to be restarted and we will be trying to reconcile and restart most of her home medications. She did have a creatinine of 1.6 IV fluids were given overnight those will be discontinued since she is eating and drinking well and her creatinine is already down to 1.2. I find that she would be an excellent candidate for inpatient rehab. Source: patient, family, old records Exam Limitations: no limitations Date Seen 12/07/18 Time Seen by a Provider: 11:00 Attending Physician Vesta Austin DO PCP Alfonso Benavides MD Referring Physician Date of Admission Dec 06, 2018 at 20:50 Home Medications & Allergies Home Medications Reviewed patient Home Medication Reconciliation performed by pharmacy medication reconciliations electronic development technician and/or nursing. Patients Allergies have been reviewed. Allergies Allergies Coded Allergies Tetanus Vaccines and Toxoid (Unverified Allergy, Severe, 12/17/11) SWOLLEN HOT RED ARM ampicillin (Unverified Allergy, Unknown, 12/20/15) Past Imilalw-Vhnbfp-Webnoa Hx Past Med/Social Hx: Reviewed Nursing Past Med/Soc Hx, Reviewed and Corrections made Patient Social History Marrital Status: single Employed/Student: retired Alcohol Use: Denies Use Recreational Drug Use: No Smoking Status: Former Smoker Type Used: Cigarettes Recent Foreign Travel: No Contact w/other who traveled: No Recent Hopitalizations: No Recent Infectious Disease Expo: No Immunizations Up To Date Tetanus Booster (TDap): Unknown Date of Pneumonia Vaccine: August 21, 2016 Date of Influenza Vaccine: Mar 19, 2011 Seasonal Allergies Seasonal Allergies: Yes Past Medical History Surgeries: Hysterectomy, Vascular Surgery Currently Using CPAP: No Currently Using BIPAP: No Cardiac: Hypertension, Peripheral Vascular Neurological: Dementia, Neuropathy 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: No Genitourinary: UTI-Chronic Gastrointestinal: Gastrointestinal Bleed, Diverticulosis, Chronic Diarrhea Musculoskeletal: Degenerate Disk Disease Endocrine: Diabetes, Non-Insulin dep HEENT: Cataract Loss of Vision: Denies Psychosocial: Anxiety History of Blood Disorders: No Family History Arthritis G8 SISTER G8 SISTER Cataracts 19 MOTHER Diabetes mellitus G8 SISTER FH: COPD (chronic obstructive pulmonary disease) 19 MOTHER FH: CVA (cerebrovascular accident) 19 FATHER FH: heart attack 19 FATHER Glaucoma 19 MOTHER Hypercholesterolemia 19 FATHER Hypertension 19 FATHER No Pertinent Family Hx Review of Systems Constitutional: see HPI, dizziness, weakness EENTM: no symptoms reported Respiratory: no symptoms reported Cardiovascular: no symptoms reported Gastrointestinal: no symptoms reported Musculoskeletal: back pain, joint pain Skin: no symptoms reported Psychiatric/Neurological: Anxiety, Depressed All Other Systems Reviewed Negative Unless Noted: Yes Physical Exam Physical Exam Vital Signs Vital Signs - First Documented 12/06/18 18:35 Temp 98.5 Pulse 78 Resp 18 B/P (MAP) 142/54 (83) Pulse Ox 96 O2 Delivery Room Air Capillary Refill : Less Than 3 Seconds Height, Weight, BMI Height: 5'5.00" Weight: 168lbs. 1.0oz. 76.449119nk; 27.7 BMI Method:Stated General Appearance: No Apparent Distress, Chronically ill, Obese Eyes: Right Eye Normal Inspection, Right Eye PERRL HEENT: PERRL/EOMI, Normal ENT Inspection, Pharynx Normal, Moist Mucous Membranes, Other (periorbital ecchymosis) Neck: Full Range of Motion, Normal Inspection, Non Tender Respiratory: Chest Non Tender, Lungs Clear, Normal Breath Sounds, No Accessory Muscle Use, No Respiratory Distress Cardiovascular: Regular Rate, Rhythm, No Edema, No Gallop, No JVD, No Murmur, Normal Peripheral Pulses Gastrointestinal: Normal Bowel Sounds, No Organomegaly, No Pulsatile Mass, Non Tender, Soft Back: Normal Inspection, No CVA Tenderness, No Vertebral Tenderness Extremity: Normal Capillary Refill, Normal Inspection, Normal Range of Motion, Non Tender, No Calf Tenderness, No Pedal Edema Neurologic/Psychiatric: Alert, Oriented x3, No Motor/Sensory Deficits, Normal Mood/Affect Skin: Normal Color, Warm/Dry Lymphatic: No Adenopathy Results Results/Procedures Labs Laboratory Tests 12/06/18 19:33 12/07/18 05:10 12/07/18 05:20 12/07/18 11:35 Patient resulted labs reviewed. Assessment/Plan Admission Diagnosis Assessment: Fall with facial injury Multiple falls at home in need of inpatient rehab with intensive therapies Unable to care for herself needs assisted living at discharge Acute renal failure now improved creatinine from 1.6-1.2 Peripheral vascular disease status post bilateral carotid endarterectomies in the past Neuropathy Anxiety CAD Thy-bl-uhlivbu diabetes Hypertension Plan: Reconcile home meds Monitor sugar and treat with insulin sliding scale Hep-Lock IV fluid Xanax and gabapentin restarted Monitor creatinine PT/OT IRF Admission Status: Observation Diagnosis/Problems Diagnosis/Problems (1) Fall Status: Acute Qualifiers: Encounter type: initial encounter Qualified Codes: W19.XXXA - Unspecified fall, initial encounter (2) Facial trauma Status: Acute Qualifiers: Encounter type: initial encounter Qualified Codes: S09.93XA - Unspecified injury of face, initial encounter (3) Neuropathy Status: Chronic (4) Diabetes mellitus Status: Chronic Qualifiers: Diabetes mellitus type: type 2 Diabetes mellitus manager intermediate insulin use: unspecified manager intermediate insulin use status Diabetes mellitus complication status: with other specified complication Qualified Codes: E11.69 - Type 2 diabetes mellitus with other specified complication (5) Renal failure (ARF), acute on chronic Status: Acute Qualifiers: Acute renal failure type: unspecified Chronic kidney disease stage: stage 3 (moderate) Qualified Codes: N17.9 - Acute kidney failure, unspecified; N18.3 - Chronic kidney disease, stage 3 (moderate) (6) Hypertension Status: Chronic Qualifiers: Hypertension type: essential hypertension Qualified Codes: I10 - Essential (primary) hypertension (7) Hyperlipidemia Status: Chronic Qualifiers: Hyperlipidemia type: unspecified Qualified Codes: E78.5 - Hyperlipidemia, unspecified (8) PVD (peripheral vascular disease) Status: Chronic (9) H/O carotid endarterectomy Status: Chronic (10) CAD (coronary artery disease) Status: Chronic Qualifiers: Coronary Disease-Associated Artery/Lesion type: [place] artery [place] vs. transplanted heart: [place] heart Associated angina: without angina Qualified Codes: I25.10 - Atherosclerotic heart disease of [place] coronary artery without angina pectoris (11) Debility Status: Acute Clinical Quality Measures DVT/VTE Risk/Contraindication: Risk Factor Score Per Nursin RFS Level Per Nursing on Admit: 4+=Very High VESTA AUSTIN DO Dec 07, 2018 11:58
[2018-12-07 12:13] LABS: ALBUMIN 3.9 GM/DL (3.2-4.5); BILIRUBIN,TOTAL 0.5 MG/DL (0.1-1.0); CALCIUM 9.4 MG/DL (8.5-10.1); CREATININE SERUM 1.25 MG/DL (0.60-1.30); TOTAL PROTEIN 6.8 GM/DL (6.4-8.2)
--- NOTE | 2018-12-07 16:07 | NUR ---
PT PULLED OUT IV BY ACCIDENT. PT HAS NO IV MEDICATION, ASKED DR. AUSTIN IF COULD JUST LEAVE IV OUT FOR NOW. DR. AUSTIN OKAYED TO LEAVE IV OUT.
[2018-12-07] MEDS ORDERED: LINA5TAB PO (17:18)
[2018-12-07] MEDS ORDERED: GEMF600T8 PO (17:18)
[2018-12-07] MEDS ORDERED: ALPR0.5T7 PO (17:18)
[2018-12-07] MEDS ORDERED: BUPR300T51 PO (17:18)
[2018-12-07] MEDS ORDERED: METF-399 PO (17:18)
[2018-12-07] MEDS ORDERED: AMLO5TAB9 PO (17:18)
[2018-12-07] MEDS ORDERED: PANT40TA3 PO (17:18)
[2018-12-07] MEDS ORDERED: MELO15TA39 PO (17:18)
[2018-12-07] MEDS ORDERED: QUET25TA73 PO (17:18)
[2018-12-07] MEDS ORDERED: GBPN600T PO (17:18)
[2018-12-07] MEDS ORDERED: PATIENT MAY USE OWN MEDS, ALL MC SCH (17:45)
[2018-12-07] MEDS ORDERED: GEMFIBROZIL 600 MG (LOPID) TAB PO ONE (20:30)
[2018-12-07] MEDS ORDERED: GLIMEPIRIDE 4 MG (AMARYL) TAB ONE (20:31)
[2018-12-07] MEDS ORDERED: NON-FORMULARY MEDICATION 1 EA EA (Gemfibrozil 600 MG) PO SCH (21:00)
[2018-12-07] MEDS ORDERED: NON-FORMULARY MEDICATION 1 EA EA (Glimepiride 4 MG) PO SCH (21:00)
[2018-12-07] MEDS: ALPRAZolam 0.5 MG (XANAX) TAB PO PRN (23:30)
--- NOTE | 2018-12-08 02:46 | NUR ---
pt reports feeling nauseated prn zofran given
[2018-12-08] MEDS ORDERED: ONDANSETRON 4 MG (ZOFRAN) ORAL DISSOLVE TAB PO PRN ×2 (03:15→08:00)
[2018-12-08 04:00] VITALS: BP 155/85
[2018-12-08 05:29] LABS: BASOPHILS % (AUTO) 0 % (0-10); EOSINOPHILS # (AUTO) 0.2 10^3/uL (0.0-0.3); EOSINOPHILS % (AUTO) 3 % (0-10); HEMATOCRIT 38 % (35-52); HEMOGLOBIN 13.2 G/DL (11.5-16.0); LYMPHOCYTES # (AUTO) 1.5 X 10^3 (1.0-4.0); LYMPHOCYTES % (AUTO) 20 % (12-44); MEAN CORPUSCULAR HEMOGLOBIN 29 PG (25-34); MEAN CORPUSCULAR HGB CONC 35 G/DL (32-36); MEAN CORPUSCULAR VOLUME 85 FL (80-99); MEAN PLATELET VOLUME 9.1 FL (7.4-10.4); MONOCYTES % (AUTO) 13 % (0-12); NEUTROPHILS % (AUTO) 65 % (42-75); PLATELET COUNT 178 10^3/uL (130-400); RED CELL DISTRIBUTION WIDTH 15.3 % (10.0-14.5); WHITE BLOOD COUNT 7.7 10^3/uL (4.3-11.0)
[2018-12-08 06:07] LABS: ALBUMIN 3.9 GM/DL (3.2-4.5); BILIRUBIN,TOTAL 0.7 MG/DL (0.1-1.0); CALCIUM 9.5 MG/DL (8.5-10.1); TOTAL PROTEIN 6.6 GM/DL (6.4-8.2)
[2018-12-08] MEDS ORDERED: PANTOPRAZOLE 40 MG (PROTONIX) TAB PO SCH (07:30)
[2018-12-08] MEDS ORDERED: GLIMEPIRIDE 4 MG (AMARYL) TAB PO SCH (07:42)
[2018-12-08 08:12] VITALS: BP 144/67
[2018-12-08] MEDS: CIPROFLOXACIN 500 MG (CIPRO) TABLET PO SCH (08:26)
[2018-12-08] MEDS: inSUlin ASPART (NovoLOG) 1 UNIT/0.01 ML (CHARGE PER UNIT) SC SCH (08:26)
--- NOTE | 2018-12-08 08:28 | Discharge Summary ---
Diagnosis/Chief Complaint Date of Admission Dec 06, 2018 at 20:50 Date of Discharge Discharge Date: Dec 08, 2018 Discharge Diagnosis Fall Facial trauma DM Neuropathy Discharge Summary Discharge Physical Examination Allergies: Coded Allergies: Tetanus Vaccines and Toxoid (Unverified Allergy, Severe, 12/17/11) SWOLLEN HOT RED ARM ampicillin (Unverified Allergy, Unknown, 12/20/15) Vitals & I&Os Vital Signs Date Time Temp Pulse Resp B/P (MAP) Pulse Ox O2 Delivery O2 Flow Rate FiO2 12/08/18 10:38 85 18 144/67 94 Room Air 12/08/18 08:12 97.3 General Appearance: Alert, Oriented X3, Cooperative Respiratory: Clear to Auscultation, Normal Air Movement Cardiovascular: Regular Rate, Normal S1, Normal S2 Psych/Mental Status: Mental Status NL, Mood NL Hospital Course Was the Problem List Reviewed?: Yes Had a brief hospital course after admitted for fall with facial trauma and was given IVF for dehydration and ARF which resolved by the 2nd day. Home meds were reconciled and several were held to prevent oversedation. Patient was deemed in need of IRF before AL dc. Labs (last 24 hrs) Laboratory Tests 12/06/18 19:17: Urine Color YELLOW, Urine Clarity CLEAR, Urine pH 5, Urine Specific [place] 1.020, Urine Protein 2+H, Urine Glucose (UA) 1+H, Urine Ketones NEGATIVE, Urine Nitrite NEGATIVE, Urine Bilirubin NEGATIVE, Urine Urobilinogen NORMAL, Urine Leukocyte Esterase 1+H, Urine RBC (Auto) NEGATIVE, Urine RBC NONE, Urine WBC 10- 20, Urine Squamous Epithelial Cells >50H, Urine Crystals NONE, Urine Bacteria MODERATEH, Urine Casts NONE, Urine Mucus NEGATIVE, Urine Culture Indicated YES 12/06/18 19:33: White Blood Count 10.5, Red Blood Count 4.62, Hemoglobin 14.0, Hematocrit 39, Mean Corpuscular Volume 84, Mean Corpuscular Hemoglobin 30, Mean Corpuscular Hemoglobin Concent 36, Red Cell Distribution Width 15.2H, Platelet Count 179, Mean Platelet Volume 9.2, Neutrophils (%) (Auto) 75, Lymphocytes (%) (Auto) 15, Monocytes (%) (Auto) 7, Eosinophils (%) (Auto) 2, Basophils (%) (Auto) 0, Neutrophils # (Auto) 7.9H, Lymphocytes # (Auto) 1.6, Monocytes # (Auto) 0.7, Eosinophils # (Auto) 0.2, Basophils # (Auto) 0.0, Sodium Level 134L, Potassium Level 4.3, Chloride Level 101, Carbon Dioxide Level 18L, Anion Gap 15H, Blood Urea Nitrogen 35H, Creatinine 1.69H, Estimat Glomerular Filtration Rate 30, BUN/Creatinine Ratio 21, Glucose Level 224H, Calcium Level 9.9, Corrected Calcium 9.7, Total Bilirubin 0.6, Aspartate Amino Transf (AST/SGOT) 17, Alanine Aminotransferase (ALT/SGPT) 20, Alkaline Phosphatase 66, Total Protein 6.9, Albumin 4.2 12/07/18 05:10: Sodium Level 134L, Potassium Level 3.7, Chloride Level 101, Carbon Dioxide Level 20L, Anion Gap 13, Blood Urea Nitrogen 41H, Creatinine 1.48H, Estimat Glomerular Filtration Rate 35, BUN/Creatinine Ratio 28, Glucose Level 160H, Calcium Level 9.4, Corrected Calcium 9.6, Total Bilirubin 0.5, Aspartate Amino Transf (AST/SGOT) 16, Alanine Aminotransferase (ALT/SGPT) 18, Alkaline Phosphatase 69, Total Protein 6.6, Albumin 3.8 12/07/18 05:20: White Blood Count 7.5, Red Blood Count 4.46, Hemoglobin 13.4, Hematocrit 38, M fallon Corpuscular Volume 85, Mean Corpuscular Hemoglobin 30, Mean Corpuscular Hemoglobin Concent 35, Red Cell Distribution Width 15.2H, Platelet Count 162, Mean Platelet Volume 9.3, Neutrophils (%) (Auto) 70, Lymphocytes (%) (Auto) 17, Monocytes (%) (Auto) 9, Eosinophils (%) (Auto) 3, Basophils (%) (Auto) 0, Neutrophils # (Auto) 5.3, Lymphocytes # (Auto) 1.3, Monocytes # (Auto) 0.7, Eosinophils # (Auto) 0.2, Basophils # (Auto) 0.0 12/07/18 09:06: Glucometer 279H 12/07/18 11:35: White Blood Count 8.1, Red Blood Count 4.61, Hemoglobin 13.9, Hematocrit 39, Mean Corpuscular Volume 85, Mean Corpuscular Hemoglobin 30, Mean Corpuscular Hemoglobin Concent 36, Red Cell Distribution Width 15.1H, Platelet Count 162, Mean Platelet Volume 9.2, Neutrophils (%) (Auto) 78H, Lymphocytes (%) (Auto) 13, Monocytes (%) (Auto) 7, Eosinophils (%) (Auto) 2, Basophils (%) (Auto) 0, Neutrophils # (Auto) 6.3, Lymphocytes # (Auto) 1.0, Monocytes # (Auto) 0.6, Eosinophils # (Auto) 0.2, Basophils # (Auto) 0.0, Sodium Level 135, Potassium Level 4.0, Chloride Level 102, Carbon Dioxide Level 19L, Anion Gap 14, Blood Urea Nitrogen 33H, Creatinine 1.25, Estimat Glomerular Filtration Rate 42, BUN/Creatinine Ratio 26, Glucose Level 201H, Calcium Level 9.4, Corrected Calcium 9.5, Total Bilirubin 0.5, Aspartate Amino Transf (AST/SGOT) 16, Alanine Aminotransferase (ALT/SGPT) 18, Alkaline Phosphatase 72, Total Protein 6.8, Albumin 3.9 12/07/18 12:51: Glucometer 182H 12/07/18 17:02: Glucometer 256H 12/07/18 21:26: Glucometer 290H 12/08/18 05:04: White Blood Count 7.7, Red Blood Count 4.51, Hemoglobin 13.2, Hematocrit 38, Mean Corpuscular Volume 85, Mean Corpuscular Hemoglobin 29, Mean Corpuscular Hemoglobin Concent 35, Red Cell Distribution Width 15.3H, Platelet Count 178, Mean Platelet Volume 9.1, Neutrophils (%) (Auto) 65, Lymphocytes (%) (Auto) 20, Monocytes (%) (Auto) 13H, Eosinophils (%) (Auto) 3, Basophils (%) (Auto) 0, Neutrophils # (Auto) 5.0, Lymphocytes # (Auto) 1.5, Monocytes # (Auto) 1.0, Eosinophils # (Auto) 0.2, Basophils # (Auto) 0.0, Sodium Level 133L, Potassium Level 4.0, Chloride Level 101, Carbon Dioxide Level 21, Anion Gap 11, Blood Urea Nitrogen 23H, Creatinine 1.00, Estimat Glomerular Filtration Rate 55, BUN/Creatinine Ratio 23, Glucose Level 246H, Calcium Level 9.5, Corrected Calcium 9.6, Total Bilirubin 0.7, Aspartate Amino Transf (AST/SGOT) 16, Alanine Aminotransferase (ALT/SGPT) 14, Alkaline Phosphatase 71, Total Protein 6.6, Albumin 3.9 12/08/18 11:41: Glucometer 347H Microbiology 12/06/18 Urine Culture - Final, Complete 3 or more isolates Pending Labs Microbiology Date/Time Source Procedure Growth Status 12/06/18 19:17 Urine Clean Catch Urine Culture - Final 3 or more isolates Complete Laboratory Tests 12/06/18 19:17: Urine Color YELLOW, Urine Clarity CLEAR, Urine pH 5, Urine Specific [place] 1.020, Urine Protein 2+, Urine Glucose (UA) 1+, Urine Ketones NEGATIVE, Urine Nitrite NEGATIVE, Urine Bilirubin NEGATIVE, Urine Urobilinogen NORMAL, Urine Leukocyte Esterase 1+, Urine RBC (Auto) NEGATIVE, Urine RBC NONE, Urine WBC 10-20, Urine Squamous Epithelial Cells >50, Urine Crystals NONE, Urine Bacteria MODERATE, Urine Casts NONE, Urine Mucus NEGATIVE, Urine Culture Indicated YES 12/06/18 19:33: White Blood Count 10.5, Red Blood Count 4.62, Hemoglobin 14.0, Hematocrit 39, Mean Corpuscular Volume 84, Mean Corpuscular Hemoglobin 30, Mean Corpuscular Hemoglobin Concent 36, Red Cell Distribution Width 15.2, Platelet Count 179, Mean Platelet Volume 9.2, Neutrophils (%) (Auto) 75, Lymphocytes (%) (Auto) 15, Monocytes (%) (Auto) 7, Eosinophils (%) (Auto) 2, Basophils (%) (Auto) 0, Neutrophils # (Auto) 7.9, Lymphocytes # (Auto) 1.6, Monocytes # (Auto) 0.7, Eosinophils # (Auto) 0.2, Basophils # (Auto) 0.0, Sodium Level 134, Potassium Level 4.3, Chloride Level 101, Carbon Dioxide Level 18, Anion Gap 15, Blood Urea Nitrogen 35, Creatinine 1.69, Estimat Glomerular Filtration Rate 30, BUN/Creatinine Ratio 21, Glucose Level 224, Calcium Level 9.9, Corrected Calcium 9.7, Total Bilirubin 0.6, Aspartate Amino Transf (AST/SGOT) 17, Alanine Aminotransferase (ALT/SGPT) 20, Alkaline Phosphatase 66, Total Protein 6.9, Albumin 4.2 12/07/18 05:10: Sodium Level 134, Potassium Level 3.7, Chloride Level 101, Carbon Dioxide Level 20, Anion Gap 13, Blood Urea Nitrogen 41, Creatinine 1.48, Estimat Glomerular Filtration Rate 35, BUN/Creatinine Ratio 28, Glucose Level 160, Calcium Level 9.4, Corrected Calcium 9.6, Total Bilirubin 0.5, Aspartate Amino Transf (AST/SGOT) 16, Alanine Aminotransferase (ALT/SGPT) 18, Alkaline Phosphatase 69, Total Protein 6.6, Albumin 3.8 12/07/18 05:20: White Blood Count 7.5, Red Blood Count 4.46, Hemoglobin 13.4, Hematocrit 38, Mean Corpuscular Volume 85, Mean Corpuscular Hemoglobin 30, Mean Corpuscular Hemoglobin Concent 35, Red Cell Distribution Width 15.2, Platelet Count 162, Mean Platelet Volume 9.3, Neutrophils (%) (Auto) 70, Lymphocytes (%) (Auto) 17, Monocytes (%) (Auto) 9, Eosinophils (%) (Auto) 3, Basophils (%) (Auto) 0, Neutrophils # (Auto) 5.3, Lymphocytes # (Auto) 1.3, Monocytes # (Auto) 0.7, Eosinophils # (Auto) 0.2, Basophils # (Auto) 0.0 12/07/18 09:06: Glucometer 279 12/07/18 11:35: White Blood Count 8.1, Red Blood Count 4.61, Hemoglobin 13.9, Hematocrit 39, Mean Corpuscular Volume 85, Mean Corpuscular Hemoglobin 30, Mean Corpuscular Hemoglobin Concent 36, Red Cell Distribution Width 15.1, Platelet Count 162, Mean Platelet Volume 9.2, Neutrophils (%) (Auto) 78, Lymphocytes (%) (Auto) 13, Monocytes (%) (Auto) 7, Eosinophils (%) (Auto) 2, Basophils (%) (Auto) 0, Neutrophils # (Auto) 6.3, Lymphocytes # (Auto) 1.0, Monocytes # (Auto) 0.6, Eosinophils # (Auto) 0.2, Basophils # (Auto) 0.0, Sodium Level 135, Potassium Level 4.0, Chloride Level 102, Carbon Dioxide Level 19, Anion Gap 14, Blood Urea Nitrogen 33, Creatinine 1.25, Estimat Glomerular Filtration Rate 42, BUN/Creatinine Ratio 26, Glucose Level 201, Calcium Level 9.4, Corrected Calcium 9.5, Total Bilirubin 0.5, Aspartate Amino Transf (AST/SGOT) 16, Alanine Aminotransferase (ALT/SGPT) 18, Alkaline Phosphatase 72, Total Protein 6.8, Albumin 3.9 12/07/18 12:51: Glucometer 182 12/07/18 17:02: Glucometer 256 12/07/18 21:26: Glucometer 290 12/08/18 05:04: White Blood Count 7.7, Red Blood Count 4.51, Hemoglobin 13.2, Hematocrit 38, Mean Corpuscular Volume 85, Mean Corpuscular Hemoglobin 29, Mean Corpuscular Hemoglobin Concent 35, Red Cell Distribution Width 15.3, Platelet Count 178, Mean Platelet Volume 9.1, Neutrophils (%) (Auto) 65, Lymphocytes (%) (Auto) 20, Monocytes (%) (Auto) 13, Eosinophils (%) (Auto) 3, Basophils (%) (Auto) 0, Neutrophils # (Auto) 5.0, Lymphocytes # (Auto) 1.5, Monocytes # (Auto) 1.0, Eosinophils # (Auto) 0.2, Basophils # (Auto) 0.0, Sodium Level 133, Potassium Level 4.0, Chloride Level 101, Carbon Dioxide Level 21, Anion Gap 11, Blood Urea Nitrogen 23, Creatinine 1.00, Estimat Glomerular Filtration Rate 55, BUN/Creatinine Ratio 23, Glucose Level 246, Calcium Level 9.5, Corrected Calcium 9.6, Total Bilirubin 0.7, Aspartate Amino Transf (AST/SGOT) 16, Alanine Aminotransferase (ALT/SGPT) 14, Alkaline Phosphatase 71, Total Protein 6.6, Albumin 3.9 12/08/18 11:41: Glucometer 347 Discharge Home Medications: Active Scripts Active Reported Cefdinir 300 Mg Capsule 300 Mg PO BID 5 Days 5 DAY THERAPY FILLED 12-04-18 Bisoprolol-Hctz 10-6.25 mg Tab (Bisoprolol Fumarate/Hctz) 1 Each Tablet 1 Tab PO DAILY Fish Oil 1,000 mg Capsule (Reseda 3 Polyunsat Fatty Acids) 1,000 Mg Cap 1,000 Mg PO DAILY Tresiba Flextouch U-100 (Insulin Degludec) 100 Unit/1 Ml Insuln.pen 25 Units SC DAILY Metformin HCl ER (Metformin HCl) 500 Mg Tab.er.24h 500 Mg PO BID Bupropion Xl (Bupropion HCl) 300 Mg Tab.er.24h 300 Mg PO DAILY Gabapentin 600 Mg Tablet 1,200 Mg PO TID TAKES 2 (600MG) TABLETS Amlodipine Besylate 5 Mg Tablet 5 Mg PO 1800 Meloxicam 15 Mg Tablet 15 Mg PO DAILY Quetiapine Fumarate 25 Mg Tablet 25 Mg PO BID Tradjenta (Linagliptin) 5 Mg Tablet 5 Mg PO DAILY Gemfibrozil 600 Mg Tablet 600 Mg PO BID Alprazolam 0.5 Mg Tablet 1 Mg PO HS TAKES 2 (0.5MG) TABLETS Pantoprazole Sodium 40 Mg Tablet.dr 40 Mg PO DAILY Aspir 81 (Aspirin) 81 Mg Tablet.dr 81 Mg PO DAILY Citracal + D ER Tablet (Calcium Carb & Citrate/Vit D3) 1 Each Tablet.er 1 Tab PO DAILY Meclizine HCl 25 Mg Tablet 25 Mg PO TID PRN Advil (Ibuprofen) 200 Mg Tablet 800 Mg PO TID PRN TAKES 4 (200MG) TABLETS Glimepiride 4 Mg Tablet 4 Mg PO BID Alprazolam 0.5 Mg Tablet 0.5 Mg PO DAILY Alendronate Sodium 70 Mg Tablet 70 Mg PO MANRIQUEZ Instructions to patient/family Please see electronic discharge instructions given to patient. Diagnosis/Problems Diagnosis/Problems (1) Fall Status: Acute Qualifiers: Qualified Codes: W19.XXXA - Unspecified fall, initial encounter (2) Facial trauma Status: Acute Qualifiers: Qualified Codes: S09.93XA - Unspecified injury of face, initial encounter (3) Neuropathy Status: Chronic (4) Diabetes mellitus Status: Chronic Qualifiers: Qualified Codes: E11.69 - Type 2 diabetes mellitus with other specified complication (5) Renal failure (ARF), acute on chronic Status: Acute Qualifiers: Qualified Codes: N17.9 - Acute kidney failure, unspecified; N18.3 - Chronic kidney disease, stage 3 (moderate) (6) Hypertension Status: Chronic Qualifiers: Qualified Codes: I10 - Essential (primary) hypertension (7) Hyperlipidemia Status: Chronic Qualifiers: Qualified Codes: E78.5 - Hyperlipidemia, unspecified (8) PVD (peripheral vascular disease) Status: Chronic (9) H/O carotid endarterectomy Status: Chronic (10) CAD (coronary artery disease) Status: Chronic Qualifiers: Qualified Codes: I25.10 - Atherosclerotic heart disease of [place] coronary artery without angina pectoris (11) Debility Status: Acute Clinical Quality Measures DVT/VTE Risk/Contraindication: Risk Factor Score Per Nursin RFS Level Per Nursing on Admit: 4+=Very High GUADALUPE AUSTIN DO Dec 08, 2018 08:28
[2018-12-08] MEDS: ALPRAZolam 0.5 MG (XANAX) TAB PO PRN (08:31)
[2018-12-08] MEDS ORDERED: GEMFIBROZIL 600 MG (LOPID) TAB PO SCH (09:00)
[2018-12-08] MEDS ORDERED: Meloxicam 15 MG PO SCH (09:00)
[2018-12-08] MEDS ORDERED: BUPROPION HCL 300 MG PO SCH (09:00)
[2018-12-08] MEDS ORDERED: ASPIRIN E.C. 81 MG (ECOTRIN) TAB PO SCH (09:00)
[2018-12-08] MEDS ORDERED: GABAPENTIN 600 MG (NEURONTIN) TAB PO SCH (09:00)
--- NOTE | 2018-12-08 10:30 | NUR ---
transferred to ARU. bedside report given to Razia JOHNS
[2018-12-08 10:38] VITALS: BP 144/67
[2018-12-08] MEDS ORDERED: INSU100I32 SC (11:50)
[2018-12-08] MEDS ORDERED: METF500T8 PO (11:50)
[2018-12-08] MEDS ORDERED: OMG1KC PO (11:50)
[2018-12-08] MEDS ORDERED: BISO1TAB6 PO (11:50)
[2018-12-08] MEDS ORDERED: CEFD300C3 PO (11:57)
[2018-12-08] MEDS ORDERED: amLODIPine 5 MG (NORVASC) TAB PO SCH (17:00)
== END 2018-12-08 08:27 ==
LOC: EDUNIT# 18:31 → ER 18:32 → UNDOADMOB 20:50 → 4TH 20:50 → UNDODISOB 12-08 10:20
PROVIDERS: ADMIT Internal Medicine; ATTEND Internal Medicine
DX: S09.93XA Unspecified injury of face, initial encounter (principal); E11.40 Type 2 diabetes mellitus with diabetic neuropathy, unspecified; E11.65 Type 2 diabetes mellitus with hyperglycemia; N17.9 Acute kidney failure, unspecified; I10 Essential (primary) hypertension; E78.5 Hyperlipidemia, unspecified; I73.9 Peripheral vascular disease, unspecified; I25.10 Atherosclerotic heart disease of native coronary artery without angina pectoris; G89.4 Chronic pain syndrome; J45.909 Unspecified asthma, uncomplicated; F03.90 Unspecified dementia, unspecified severity, without behavioral disturbance, psychotic disturbance, mood disturbance, and anxiety; F41.9 Anxiety disorder, unspecified; K52.9 Noninfective gastroenteritis and colitis, unspecified; R53.1 Weakness; R29.6 Repeated falls; W19.XXXA Unspecified fall, initial encounter; Z79.84 Long term (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 of oral hypoglycemic drugs; Z79.899 Other long term (current) drug therapy; Z79.82 Long term (current) use of aspirin; Z88.1 Allergy status to other antibiotic agents; Z88.7 Allergy status to serum and vaccine; Z87.891 Personal history of nicotine dependence; Z87.19 Personal history of other diseases of the digestive system
CPT/HCPCS: 36415; 80053; 81000; 82962; 85025; 87088; 96372; G0378

== ENCOUNTER 2018-12-08 09:27 | Inpatient (IN) | payer MEDICARE ==
[~2018-12-08] VITALS: Ht 165.1 cm; Wt 74.6 kg
[~2018-12-08 09:27] MED LIST changes: +AMLO5TAB9 PO; +BUPR300T51 PO; +GBPN600T PO; +GEMF600T8 PO; +LINA5TAB PO; +MELO15TA39 PO; +METF-399 PO; +PANT40TA3 PO; +QUET25TA73 PO
--- NOTE | 2018-12-08 10:53 | Physical Therapy Evaluation ---
PT Evaluation-General Medical Diagnosis Admission Date 12/08/2018 Medical Diagnosis: debility Onset Date: Dec 08, 2018 Therapy Diagnosis Therapy Diagnosis: abnormal gait Height/Weight Height (Feet): 5 Height (Inches): 5.00 Weight (Pounds): 164 Weight (Ounces): 1.0 Precautions Precautions/Isolations: Standard Precautions Referral Physician: Nba Reason for Referral: Evaluation/Treatment Medical History Pertinent Medical History: CAD, COPD, DM, Dementia, HTN, Neuropathy, PVD Additional Medical History arthritis in her left knee. Current History Her initial fall occurred outdoors as she was walking to go to the doctor on 12/03/2018. She has had several falls since that incident. Reviewed History: Yes Social History Home: Apartment ([facility]. ) Current Living Status: Alone Entry Into Home: Elevator PT Steps Into Home: 0 Prior/Core FIM Prior Level of Function Therapy Code Descriptions/Definitions Functional Foster Measure: 0=Not Assessed/NA 4=Minimal Assistance 1=Total Assistance 5=Supervision or Setup 2=Maximal Assistance 6=Modified Foster 3=Moderate Assistance 7=Complete Foster Therapy Quality Codes: 6 Independent with activity with or without an assistive device 5 Patient requires set up or clean up by helper. Patient completes activity by themselves 4 Supervision or touching assist (CGA). Marana provide cues , steadying assist 3 The helper provides less than half the effort to complete the activity 2 The helper provides more than half the effort to complete the activity 1 Dependent. The helper does all the effort to complete an activity 7 Patient refused to complete or attempt activity 9 The patient did not perform the activity before the current illness or injury 88 Not attempted due to Medical conditions or safety concerns Functional Abilities and Goals: Independent: Patient completed the activities by him/herself, with or without an assistive device, with no assistance from a helper. Needed Some Help: Patient needed partial assistance from another person to complete activities. Dependent: A helper completed the activities for the patient. Unknown: Not Applicable: Bed Mobility: 7 (pt reports she typically sleeps on the couch) Transfers (B,C,W/C) (FIM): 7 Gait: 6 (pt has a 4WW and a standard walker for gait.) Indoor Mobility (Ambulation): Independent Stairs: Independent Prior Devices Use: Walker pt able to perform housework, care for herself and walk down the [place] to do laundry; reports she leaves her home for Doctor appointments but stays in typically. If she leaves for an appointment, she is assisted. PT Evaluation-Current Subjective Pt agreeable to PT. Reports frequent falls in the last few days. Reports she went to outpt PT approximately a year ago and noted, "I couldn't do it. I couldn't do the things they wanted me to do. I couldnt lay down on that mat." Pt and family report she leans forward and tends to drag her feet when she wal ks. Pain Location: Left Location Body Site: Hand (left lateral border.) Pain Description: Ache (/sore) Comment: B foot pain "neuropathy" rated 5/10 Pt/Family Goals Pt reports her goal is to return home and to not fall. Objective Patient Orientation: Person, Place, Time, Situation Problem Solving: Fair ROM/Strength ROM Lower Extremities WFL Strenght Lower Extremities grossly 4/5 throughout Integumentary/Posture Integumentary Refer to nursing notes; pt does have areas that are skinned/bruised due to falls at home. Bowel Incontinence: Yes Bladder Incontinence: No Posture slight thoracic kyphosis; forward head; lacks full hip extension in standing; tends to walk forward flexed which disposes her to falling forward Neuromuscular (Tone, Coordination, Reflexes) intact and functional Sensory Vision: Wears Glasses Hearing: Impaired Hand Dominance: Right Sensation Right Lower Extremit: Intact Sensation Left Lower Extremity: Intact Transfers Therapy Code Descriptions/Definitions Functional Foster Measure: 0=Not Assessed/NA 4=Minimal Assistance 1=Total Assistance 5=Supervision or Setup 2=Maximal Assistance 6=Modified Foster 3=Moderate Assistance 7=Complete Foster Therapy Quality Codes: 6 Independent with activity with or without an assistive device 5 Patient requires set up or clean up by helper. Patient completes activity by themselves 4 Supervision or touching assist (CGA). Marana provide cues , steadying assist 3 The helper provides less than half the effort to complete the activity 2 The helper provides more than half the effort to complete the activity 1 Dependent. The helper does all the effort to complete an activity 7 Patient refused to complete or attempt activity 9 The patient did not perform the activity before the current illness or injury 88 Not attempted due to Medical conditions or safety concerns Transfers (B, C, W/C) (FIM): 3 Roll Left to Right (QC): 4 Supine to/from Sit: 3 (min assist to sit up but mod assist to lie down) Sit to/from Stand: 4 (min assist to come to a stand) Sit to Lying (QC): 3 Lying to Sitting/Side of Bed(Q: 3 Sit to Stand (QC): 3 Chair/Iuw-hx-Vgemu Xfer(QC): 4 Car Transfer (QC): 3 (assist with both legs to get into the car.) Pt requires cues for hand placement and sequencing; requires safety cues. Gait Does the Patient Walk?: Yes Mode of Locomotion: Walk Anticipated Mode of Locomotion: Walk Gait (FIM): 2 (limited by distance.) Distance (FIM): 9=291-01 ft Walk 10 feet (QC): 3 Walk 50 ft with 2 Turns(QC): 3 Walk 150 ft (QC): 88 Walking 10ft/uneven surface-QC: 3 Distance: 100 ft x 2 50 ft x 2 Gait Level of Assist: 3 (pt requires min assist for gait for balance and to steady her; she had 2 episodes of dizziness that required mod assist to stay upright. ) Gait Assistive Device: FWW Comments/Gait Description Gait is unsteady at times with 2 episodes of dizziness that made her knees give and required mod assist to maintain balacne; walks with decreased foot clearance and head down. Fall risk due to posture and due to looking down with walking; in addition the dizzy episodes increase fall risk. Wheelchair Training Does the Pt Use a Wheelchair?: No Stairs Stairs (FIM): 1 #of Steps: 1 Level of Assist: 3 (min assist to step and and to lower off.) 1 Step (curb) (QC): 3 4 Steps (QC): 88 Assistive Device: Walker Balance Sitting Static: Normal Sitting Dynamic: Normal Standing Static: Fair Standing Dynamic: Fair Picking up an Object (QC): 88 Treatment Functional transfer training with skilled cues for hand placement and safety. Cues to sequence tasks and to complete safely Assessment/Needs Pt admitted to ARU post multiple falls at home. She presents with impaired functional balance and posture that lends toward an increased fall risk. In addition, she had 2 episodes during walking this date that could have led to a fall as well. She will benefit from skilled PT intervention to address mobility and safety to allow her to safely discharge with a reduced risk of falling. Pt and family express interest in discharging to an [facility]. Rehab Potential: Good PT Short Term Goals Short Term Goals Time Frame: Dec 15, 2018 Transfers (B,C,W/C) (FIM): 5 Gait (FIM): 5 Distance (FIM): 3=150 ft PT Activities Manager Goals Activities Manager Goals PT Jail Goals Time Frame: Dec 26, 2018 Transfers (B,C,W/C) (FIM): 7 Sit to Lying (QC): 6 Lying-Sitting on Side/Bed(QC): 6 Sit to Stand (QC): 6 Roll Left to Right (QC): 6 Chair/Fto-sa-Nqdoz Xfer(QC): 6 Car Transfer (QC): 6 Does the Patient Walk: Yes Gait (FIM): 6 Gait distance (FIM): 3=150 ft Walk 10 feet (QC): 6 Walk 10ft-Uneven Surface(QC): 6 Walk 50ft with 2 Turns (QC): 6 Walk 150 ft (QC): 6 Gait Assistive Device: FWW Does the Pt use WC or Scooter?: No Stairs (FIM): 5 # of Steps: 4 1 Step (curb) (QC): 6 4 Steps (QC): 6 12 Steps (QC): 88 Picking up an Object (QC): 88 PT Plan Problem List Problem List: Activity Tolerance, Functional Strength, Safety, Balance, Gait, Transfer, Bed Mobility Treatment/Plan Treatment Plan: Continue Plan of Care Treatment Plan: Bed Mobility, Education, Functional Activity [place], Functional Strength, Group Therapy, Gait, Safety, Therapeutic Exercise, Transfers Treatment Duration: Dec 26, 2018 Frequency: At least 5 of 7 days/Wk (IRF) Estimated Hrs Per Day: 1.5 hours per day Safety Risks/Education Patient Education: Transfer Techniques, Safety Issues Teaching Recipient: Patient Teaching Methods: Demonstration, Discussion Response to Teaching: Reinforcement Needed Discharge Recommendations Therapy D/C Recommendations: Physical Therapy Home Care Time/GCodes Time In: 1030 Time Out: 1130 Total Billed Treatment Time: 60 Total Billed Treatment visit EVM 15 FA 45 JJ COREA PT Dec 08, 2018 10:53
--- NOTE | 2018-12-08 11:36 | History & Physical ---
[facility] 12/08/18 1136: History of Present Illness History of Present Illness Reason for visit/HPI CC: Frequent Falls Ms. Chou is a 68 y/o WF with PMH of HTN, DM, hyperlipidemia and ALTON presents with a chief complaint of frequent falls. 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 She states she starts to get dizzy and her legs get weak causing her to fall. She denies loss of consciousness, but describes the room spinning prior to each episode. She presented to the ED after her last fall when she was found by her son and was unable to get her up. She denies urinary urgency or burning, fever, chills. She is occasionally incontinent of stool, and has been for the previous few months. Prior to the last week, she was independent with all ADL's and without falls. She has been to the ED for falls over the last couple of weeks for multiple falls. She was counselled to use a FWW, but has not been compliant. From social context, she lives alone in a 2nd floor, carpeted apartment. She has no stairs to navigate as there is an elevator to the second floor. Her PCP is Dr. Peterson. She has multiple prescriptions which could be exacerbating her symptoms. She has, in previous admissions, been open to the idea of assisted living. Social hx: denies alcohol use, smokes 1ppd for many years, and denies etoh usage PSH: B/l carotid endarterectomy, bso/edith Date of Admission I consulted on this patient on 12/08/18 11:27 Attending Physician Vesta Austin DO Admitting Physician Alfonso Benavides MD Consult Allergies and Home Medications Allergies Coded Allergies: Tetanus Vaccines and Toxoid (Unverified Allergy, Severe, 12/17/11) SWOLLEN HOT RED ARM ampicillin (Unverified Allergy, Unknown, 12/20/15) Home Medications Alendronate Sodium 70 Mg Tablet, 70 MG PO Gaines, (Reported) Alprazolam 0.5 Mg Tablet, 0.5 MG PO DAILY, (Reported) Alprazolam 0.5 Mg Tablet, 1 MG PO HS, (Reported) TAKES 2 (0.5MG) TABLETS Amlodipine Besylate 5 Mg Tablet, 5 MG PO 1800, (Reported) Aspirin 81 Mg Tablet.dr, 81 MG PO DAILY, (Reported) Bisoprolol Fumarate/Hctz 1 Each Tablet, 1 TAB PO DAILY, (Reported) Bupropion HCl 300 Mg Tab.er.24h, 300 MG PO DAILY, (Reported) Calcium Carb & Citrate/Vit D3 1 Each Tablet.er, 1 TAB PO DAILY, (Reported) Cefdinir 300 Mg Capsule, 300 MG PO BID, (Reported) 5 DAY THERAPY FILLED 12-04-18 Gabapentin 600 Mg Tablet, 1,200 MG PO TID, (Reported) TAKES 2 (600MG) TABLETS Gemfibrozil 600 Mg Tablet, 600 MG PO BID, (Reported) Glimepiride 4 Mg Tablet, 4 MG PO BID, (Reported) Ibuprofen 200 Mg Tablet, 800 MG PO TID PRN for PAIN-MILD, (Reported) TAKES 4 (200MG) TABLETS Insulin Degludec 100 Unit/1 Ml Insuln.pen, 25 UNITS SC DAILY, (Reported) Linagliptin 5 Mg Tablet, 5 MG PO DAILY, (Reported) Meclizine HCl 25 Mg Tablet, 25 MG PO TID PRN for DIZZINESS, (Reported) Meloxicam 15 Mg Tablet, 15 MG PO DAILY, (Reported) Metformin HCl 500 Mg Tab.er.24h, 500 MG PO BID, (Reported) Eure 3 Polyunsat Fatty Acids 1,000 Mg Cap, 1,000 MG PO DAILY, (Reported) Pantoprazole Sodium 40 Mg Tablet.dr, 40 MG PO DAILY, (Reported) Quetiapine Fumarate 25 Mg Tablet, 25 MG PO BID, (Reported) Past Eowaypm-Lsaxdm-Xagbxw Hx Patient Social History Alcohol Use: Denies Use Recreational Drug Use: No Smoking Status: Current Everyday Smoker Cigaretts per day: 20 Type Used: Cigarettes Recent Hopitalizations: No Immunizations Up To Date Tetanus Booster (TDap): Unknown Date of Pneumonia Vaccine: August 21, 2016 Date of Influenza Vaccine: Mar 19, 2011 Seasonal Allergies Seasonal Allergies: Yes Surgeries Yes (R CAROTID 2010) Hysterectomy, Vascular Surgery Respiratory No Currently Using CPAP: No Currently Using BIPAP: No Cardiovascular Yes Hypertension, Peripheral Vascular Neurological Yes Dementia, Neuropathy 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 System Hx 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 Disorders: No Genitourinary Yes UTI-Chronic Gastrointestinal Yes Gastrointestinal Bleed, Diverticulosis, Chronic Diarrhea Musculoskeletal Yes (ARTHRITIS) Degenerate Disk Disease Endocrine History of Endocrine Disorders: Yes (BS 172 BEFORE ADMISSION) Endocrine Disorders: Diabetes, Non-Insulin dep HEENT HEENT Disorders: Cataract Loss of Vision: Denies Cancer No Psychosocial History of Psychiatric Problem: Yes Behavioral Health Disorders: Anxiety Integumentary History of Skin or Integumenta: No Blood Transfusions History of Blood Disorders: No Family Medical History Significant Family History: No Pertinent Family Hx Family Hx: Arthritis G8 SISTER G8 SISTER Cataracts 19 MOTHER Diabetes mellitus G8 SISTER FH: COPD (chronic obstructive pulmonary disease) 19 MOTHER FH: CVA (cerebrovascular accident) 19 FATHER FH: heart attack 19 FATHER Glaucoma 19 MOTHER Hypercholesterolemia 19 FATHER Hypertension 19 FATHER Physical Exam Vital Signs Capillary Refill : Height, Weight, BMI Height: 5'5.00" Weight: 164lbs. 1.0oz. 74.533521oa; 27.7 BMI Method:VESTA Rojas DO 12/08/182123: History of Present Illness History of Present Illness Reason for visit/HPI Verification and Attestation of Medical Student E/M Service A medical student performed and documented this service in my presence. I reviewed and verified all information documented by the medical student and made modifications to such information, when appropriate. I personally performed the physical exam and medical decision making. Vesta Austin, Dec 08, 2018,21:23 Date of Admission 12/08/18 Time Seen by a Provider: 00:00 Allergies and Home Medications Allergies Coded Allergies: Tetanus Vaccines and Toxoid (Unverified Allergy, Severe, 12/17/11) SWOLLEN HOT RED ARM ampicillin (Unverified Allergy, Unknown, 12/20/15) Home Medications Alendronate Sodium 70 Mg Tablet, 70 MG PO Gaines, (Reported) Alprazolam 0.5 Mg Tablet, 0.5 MG PO DAILY, (Reported) Alprazolam 0.5 Mg Tablet, 1 MG PO HS, (Reported) TAKES 2 (0.5MG) TABLETS Amlodipine Besylate 5 Mg Tablet, 5 MG PO 1800, (Reported) Aspirin 81 Mg Tablet.dr, 81 MG PO DAILY, (Reported) Bisoprolol Fumarate/Hctz 1 Each Tablet, 1 TAB PO DAILY, (Reported) Bupropion HCl 300 Mg Tab.er.24h, 300 MG PO DAILY, (Reported) Calcium Carb & Citrate/Vit D3 1 Each Tablet.er, 1 TAB PO DAILY, (Reported) Cefdinir 300 Mg Capsule, 300 MG PO BID, (Reported) 5 DAY THERAPY FILLED 12-04-18 Gabapentin 600 Mg Tablet, 1,200 MG PO TID, (Reported) TAKES 2 (600MG) TABLETS Gemfibrozil 600 Mg Tablet, 600 MG PO BID, (Reported) Glimepiride 4 Mg Tablet, 4 MG PO BID, (Reported) Ibuprofen 200 Mg Tablet, 800 MG PO TID PRN for PAIN-MILD, (Reported) TAKES 4 (200MG) TABLETS Insulin Degludec 100 Unit/1 Ml Insuln.pen, 25 UNITS SC DAILY, (Reported) Linagliptin 5 Mg Tablet, 5 MG PO DAILY, (Reported) Meclizine HCl 25 Mg Tablet, 25 MG PO TID PRN for DIZZINESS, (Reported) Meloxicam 15 Mg Tablet, 15 MG PO DAILY, (Reported) Metformin HCl 500 Mg Tab.er.24h, 500 MG PO BID, (Reported) Eure 3 Polyunsat Fatty Acids 1,000 Mg Cap, 1,000 MG PO DAILY, (Reported) Pantoprazole Sodium 40 Mg Tablet.dr, 40 MG PO DAILY, (Reported) Quetiapine Fumarate 25 Mg Tablet, 25 MG PO BID, (Reported) Patient Home Medication List Home Medication List Reviewed: Yes Past Xsxeqyc-Kdaipy-Uopmkr Hx Patient Social History Marrital Status: single Alcohol Use: Denies Use Family Medical History Family Hx: Arthritis G8 SISTER G8 SISTER Cataracts 19 MOTHER Diabetes mellitus G8 SISTER FH: COPD (chronic obstructive pulmonary disease) 19 MOTHER FH: CVA (cerebrovascular accident) 19 FATHER FH: heart attack 19 FATHER Glaucoma 19 MOTHER Hypercholesterolemia 19 FATHER Hypertension 19 FATHER Review of Systems Constitutional: no symptoms reported Physical Exam General Appearance: No Apparent Distress Assessment/Plan Assessment and Plan Problems: (1) Debility Status: Acute Admission Diagnosis Admission Status: Inpatient Order (span 2 midnights) Reason for Inpatient Admission: irf Supervisory-Addendum Brief Verification & Attestation Participated in pt care: history, MDM, physical Personally performed: exam, history, MDM, supervision of care Care discussed with: Medical Student Procedures: n/a Results interpretation: Verified all documentation Verification and Attestation of Medical Student E/M Service A medical student performed and documented this service in my presence. I reviewed and verified all information documented by the medical student and made modifications to such information, when appropriate. I personally performed the physical exam and medical decision making. Vesta Austin, Dec 08, 2018,21:23 [facility] ST[facility] Dec 08, 2018 11:36 VESTA AUSTIN DO Dec 08, 2018 21:24
--- NOTE | 2018-12-08 11:47 | NUR ---
Initial visit: Pt's Son Artur and TRISTON John were present: The pt has lived at the [facility] but is looking to move into Assisted Living. Jaz said they were looking at [facility] today. The pt said she was a practicing Pentecostal until her , and since then she has not maintained a gnosticism connection, yet describes continued vinayak in God.
[2018-12-08] MEDS ORDERED: BISO1TAB6 PO (11:50)
[2018-12-08] MEDS ORDERED: METF500T8 PO (11:50)
[2018-12-08] MEDS ORDERED: OMG1KC PO (11:50)
[2018-12-08] MEDS ORDERED: INSU100I32 SC (11:50)
[2018-12-08] MEDS ORDERED: CEFD300C3 PO (11:57)
--- NOTE | 2018-12-08 12:09 | NUR ---
MED REC WAS NOT COMPLETED BY PHARMACY PRIOR TO THE PATIENT DISCHARGING TO REHAB. I WENT OVER THE EXT MED HX WITH THE PATIENT AT THIS TIME AND SHE VERIFIED HOW SHE TAKES THEM TO THE BEST OF HER ABILITY. SHE HAS SOME BOTTLES HERE WITH HER BUT HER DAUGHTER IN LAW TOOK HOME THE REST OF HER BOTTLES. I HAD A CURRENT MEDICATION LIST FAXED OVER FROM DR. BAKER'S OFFICE WELL. SHE STATES SHE IS NOT TAKING THE 1000MG METFORMIN THAT WAS FILLED 10-29-18 - SHE ALSO FILLED METFORMIN ER 500MG BID #60 10-28-18 AND STATES THAT IS WHAT SHE IS TAKING. SHE IS UNSURE WHY THEY HAVE FILLED THE 1000MG WELL. SHE FILLED BUPROPION XL 300MG DAILY #90 10-27-18 AND XL 150MG #90 09-29-18. SHE IS UNSURE WHY THE DOSE CHANGES, SHE WAS NOT AWARE IT DID. SHE HAS THE 300MG BOTTLE WITH HER AND THAT IS WHAT IS REPORTED ON THE LIST FROM DR. BAKER'S OFFICE. THE LIST FROM DR. BAKER'S OFFICE STATES TRESIBA 15 UNITS DAILY HOWEVER SHE STATES THEY RECENTLY TOLD HER TO INCREASE THAT DOSE TO 25 UNITS. SHE ADMITS SHE FORGETS TO TAKE IT SOMETIMES. LISTED ON THE LIST FROM DR. BAKER'S OFFICE WAS FLOVENT HOWEVER PATIENT DID NOT MENTION IT IN OUR INTERVIEW AND HAS NOT FILLED IT SINCE 10-22-17 SO I DID NOT INCLUDE IT ON THE MED REC. ALSO LISTED ON DR. BAKER'S LIST WAS HYDRALAZINE 50MG Q6H PRN HYPERTENSION HOWEVER IT HAS NOT BEEN FILLED SINCE 05-20-18 AND SHE DID NOT MENTION IT EITHER SO I DID NO INCLUDE IT ON HER MED REC. OTC MEDS: ASPIRIN 81MG DAILY CALCIUM +D DAILY IBU 4 TABS PRN FISH OIL DAILY SOME CHANGES WERE MADE TO THE MED REC THAT HAD BEEN CONTINUED DURING THE STAY ON 4TH FLOOR. I PASSED THE CHANGES ON TO PHARMACIST MADAY AND NURSE SAMUEL FOR CLARIFICATION. 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 IT IS NOT ON THE LIST FROM DR. BAKER'S OFFICE. I CALLED HER DAUGHTER IN LAW WHO HAD THE REST OF THE BOTTLES WITH HER THAT WERE TAKEN HOME FROM THE HOSPITAL. THEY DID NOT FIND THAT MEDICATION IN THE BAG OF BOTTLES. I REMOVED IT FROM THE MED REC AT THIS TIME.
[2018-12-08 12:13] VITALS: BP 147/81
[2018-12-08] MEDS ORDERED: inSUlin ASPART (NovoLOG) 1 UNIT/0.01 ML (CHARGE PER UNIT) ONE (12:51)
--- NOTE | 2018-12-08 13:00 | PM&R H&P / Post Admit Assess ---
History of Present Illness HPI/Chief Complaint CC: Frequent Falls Ms. Chou is a 68 y/o WF with PMH of HTN, DM, hyperlipidemia and ALTON presents with a chief complaint of frequent falls. 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 She states she starts to get dizzy and her legs get weak causing her to fall. She denies loss of consciousness, but describes the room spinning prior to each episode. She presented to the ED after her last fall when she was found by her son and was unable to get her up. She denies urinary urgency or burning, fever, chills. She is occasionally incontinent of stool, and has been for the previous few months. Prior to the last week, she was independent with all ADL's and without falls. She has been to the ED for falls over the last couple of weeks for multiple falls. She was counselled to use a FWW, but has not been compliant. From social context, she lives alone in a 2nd floor, carpeted apartment. She has no stairs to navigate as there is an elevator to the second floor. Her PCP is Dr. Benavides. She has multiple prescriptions which could be exacerbating her symptoms. She has, in previous admissions, been open to the idea of assisted living. Social hx: denies alcohol use, smokes 1ppd for many years, and denies etoh usage PSH: B/l carotid endarterectomy, bso/edith Note per Balbir Richardson [facility] CC: Multiple falls with debility HPI: This is a 68yoWF who previously lived at home who was brought to the ER on Saturday night after multiple falls requiring multiple ER visits last week who suffered facial injuries and ecchymosis B/L in the most recent fall when the family found her down who has a PMH of severe neuropathy and diabetic complications along with peripheral vascular disease s/p B/L CEA managed by Dr. Springer and Dr. Benavides who presents to inpatient rehab in need of intensive therapy to prevent falls which could harm her further and has reluctantly agreed to go to assisted living because she really is unsafe to return home and live independently. At this current time pt feels well, her bowels are moving, urinating well, acute renal failure with creatinine of 1.6 improved with IV fluids given over night on Saturday night so I heplocked those yesterday and the rest of her labs look really good. At this current time pt is ready for rehab and is a poor historian with her other medical issues so will try to grab details from PCP office and pharmacy. Source: patient Exam Limitations: no limitations Date Seen 12/08/18 Time Seen by a Provider: 11:00 Attending Physician Vesta Austin DO PCP Alfonso Benavides MD Referring Physician Date of Admission Dec 08, 2018 at 10:30 Home Medications & Allergies Home Medications Reviewed patient Home Medication Reconciliation performed by pharmacy medication reconciliations radioactivity technician and/or nursing. Patients Allergies have been reviewed. Allergies Allergies Coded Allergies Tetanus Vaccines and Toxoid (Unverified Allergy, Severe, 12/17/11) SWOLLEN HOT RED ARM ampicillin (Unverified Allergy, Unknown, 12/20/15) Past Ybsbmsx-Gsehsc-Spmxpl Hx Past Med/Social Hx: Reviewed Nursing Past Med/Soc Hx, Reviewed and Corrections made Patient Social History Marrital Status: single Employed/Student: retired Alcohol Use: Denies Use Recreational Drug Use: No Smoking Status: Former Smoker Cigaretts per day: 20 Type Used: Cigarettes Recent Foreign Travel: No Contact w/other who traveled: No Recent Hopitalizations: No Recent Infectious Disease Expo: No Immunizations Up To Date Tetanus Booster (TDap): Unknown Date of Pneumonia Vaccine: August 21, 2016 Date of Influenza Vaccine: Mar 19, 2011 Seasonal Allergies Seasonal Allergies: Yes Past Medical History Surgeries: Hysterectomy, Vascular Surgery Currently Using CPAP: No Currently Using BIPAP: No Cardiac: Coronary Artery Disease, Hypertension, Peripheral Vascular Neurological: Dementia, Neuropathy 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: No Genitourinary: UTI-Chronic Gastrointestinal: Gastrointestinal Bleed, Diverticulosis, Chronic Diarrhea Musculoskeletal: Degenerate Disk Disease Endocrine: Diabetes, Non-Insulin dep HEENT: Cataract Loss of Vision: Denies Psychosocial: Anxiety History of Blood Disorders: No Family History Arthritis G8 SISTER G8 SISTER Cataracts 19 MOTHER Diabetes mellitus G8 SISTER FH: COPD (chronic obstructive pulmonary disease) 19 MOTHER FH: CVA (cerebrovascular accident) 19 FATHER FH: heart attack 19 FATHER Glaucoma 19 MOTHER Hypercholesterolemia 19 FATHER Hypertension 19 FATHER No Pertinent Family Hx Review of Systems Constitutional: see HPI, weakness EENTM: no symptoms reported Respiratory: no symptoms reported Cardiovascular: no symptoms reported Gastrointestinal: no symptoms reported Genitourinary: no symptoms reported Musculoskeletal: back pain, joint pain Skin: no symptoms reported Psychiatric/Neurological: Anxiety All Other Systems Reviewed Negative Unless Noted: Yes Physical Exam Exam Vital Signs Vital Signs Date Time Temp Pulse Resp B/P (MAP) Pulse Ox O2 Delivery O2 Flow Rate FiO2 12/08/18 15:55 98.2 85 16 128/78 (95) 95 Room Air Capillary Refill : General Appearance: No Apparent Distress, WD/WN, Chronically ill, Obese HEENT: PERRL/EOMI, Normal ENT Inspection, Pharynx Normal, Moist Mucous Membranes, Other (facial ecchymosis) Neck: Full Range of Motion, Normal Inspection, Non Tender, Supple Respiratory: Chest Non Tender, Lungs Clear, Normal Breath Sounds, No Accessory Muscle Use, No Respiratory Distress Cardiovascular: Regular Rate, Rhythm, No Edema, No Gallop, No JVD, No Murmur Gastrointestinal: Normal Bowel Sounds, No Organomegaly, No Pulsatile Mass, Non Tender, Soft Back: Normal Inspection, No CVA Tenderness, No Vertebral Tenderness Extremity: Normal Capillary Refill, Normal Inspection, Normal Range of Motion, Non Tender, No Calf Tenderness, No Pedal Edema Neurologic/Psychiatric: Alert, Oriented x3, No Motor/Sensory Deficits, Normal Mood/Affect Skin: Normal Color, Warm/Dry Lymphatic: No Adenopathy Results Results/Procedures Labs Patient resulted labs reviewed. Assessment/Plan Assessment and Plan Assess & Plan/Chief Complaint Assessment: Fall Facial trauma Neuropathy Chronic pain Anxiety CAD PVD HTN Dementia Plan: IRF protocol AL at [facility] meds (1) Fall Status: Acute Qualifiers: Encounter type: subsequent encounter Qualified Codes: W19.XXXD - Unspecified fall, subsequent encounter (2) Debility Status: Acute (3) Facial trauma Status: Acute Qualifiers: Encounter type: subsequent encounter Qualified Codes: S09.93XD - Unspecified injury of face, subsequent encounter (4) Acute renal insufficiency Status: Acute (5) Leukocytosis Status: Acute Qualifiers: Leukocytosis type: leukemoid reaction Qualified Codes: D72.823 - Leukemoid reaction (6) Diabetes mellitus Status: Chronic Qualifiers: Diabetes mellitus type: type 2 Diabetes mellitus supervisor intermediates insulin use: without custodial use Diabetes mellitus complication status: with other specified complication Qualified Codes: E11.69 - Type 2 diabetes mellitus with other specified complication (7) CAD (coronary artery disease) Status: Chronic Qualifiers: Coronary Disease-Associated Artery/Lesion type: [place] artery [place] vs. transplanted heart: [place] heart Associated angina: without angina Qualified Codes: I25.10 - Atherosclerotic heart disease of [place] coronary artery without angina pectoris (8) Hyperlipidemia Status: Chronic Qualifiers: Hyperlipidemia type: mixed hyperlipidemia Qualified Codes: E78.2 - Mixed hyperlipidemia (9) Neuropathy Status: Chronic (10) PVD (peripheral vascular disease) Status: Chronic (11) Hypertension Status: Chronic Qualifiers: Hypertension type: essential hypertension Qualified Codes: I10 - Essential (primary) hypertension (12) Renal failure (ARF), acute on chronic Status: Acute Qualifiers: Acute renal failure type: unspecified (13) H/O carotid endarterectomy Status: Chronic Post Admission Physician Asses Date seen by provider: Dec 08, 2018 Time seen by provider: 11:00 Admisison Dx: (1) Fall Status: Acute The preadmission screen agrees with the post admission assessment that the patient is a good candidate for inpatient rehabilitation. The patient will have a comprehensive program of inpatient rehabilitation with a goal of maximizing level of functional independence prior to discharge home with family. The patient will have PT/OT ninety minutes per day, each discipline, five days a week for gait, strengthening, conditioning, balance, ADLs, any patient/family/caregiver training as necessary. Speech therapy to do cognitive assessment and treat as indicated. Rehabilitation nursing to assist with bowel, bladder, skin, wound care, medication administration, pain management. Media Professional to assist with discharge planning, community reentry. SCD's for DVT prophylaxis. She appears to be well motivated to participate in three hours of therapy a day. She should be able to tolerate three hours of therapy a day from a medical standpoint. She should benefit from the three hours of therapy a day. She has a reasonable discharge plan, reasonable discharge rehabilitation goals and a supportive family. She has various comorbidities that need to be closely monitored with medications and treatments adjusted on a daily basis as needed. These include: see list Barriers to discharge for this patient who had been independent prior to this are for her to be modified independent to supervision for ADLs and mobility skills prior to discharge home with family or AL, so as to lessen the burden of the caregivers. Risks for this patient include: 1. Fall 2. Fracture 3. DVT 4. Pulmonary embolism 5. Wound infection 6. Skin breakdown 7. Contractures 8. Poorly controlled pain 9. Urinary retention 10. UTI 11. Respiratory infection 12. Aspiration Estimated Length of Stay: 7 days Prognosis: Rehab prognosis appears good for goal of discharge home with family modified independent to supervision for ADLs and mobility skills. VESTA AUSTIN DO Dec 08, 2018 13:00
[2018-12-08] MEDS: inSUlin ASPART (NovoLOG) 1 UNIT/0.01 ML (CHARGE PER UNIT) SC SCH ×3 (13:04→21:52)
--- NOTE | 2018-12-08 14:03 | Occupational Therapy Eval ---
OT Evaluation-General/PLF Medical Diagnosis Admission Date Dec 08, 2018 at 10:30 Medical Diagnosis: Debility Onset Date: Dec 08, 2018 Therapy Diagnosis Therapy Diagnosis: Weakness Height/Weight Height (Feet): 5 Height (Inches): 5.00 Weight (Pounds): 161 Weight (Ounces): 0.8 Precautions Precautions/Isolations: Standard Precautions Weight Bear Status Weight Bearing Restriction: Weight Bearing/Tolerated Referral Physician: Nba Referral Reason: Activity Tolerance, Self Care, Evaluation/Treatment, Strengthening/ROM Medical History Pertinent Medical History: CAD, COPD, DM, Dementia, HTN, Neuropathy, PVD Additional Medical History Chronic pain syndrome, Hysterectomy Current History Pt. began to have multiple falls at home. Pt. has UTI. Reviewed History: Yes Social History Home: Apartment ([facility]. ) Current Living Status: Alone Entry Into Home: Elevator Steps Into Home: 0 ADL-Prior Level of Function Therapy Code Descriptions/Definitions Functional [place] Measure: 0=Not Assessed/NA 4=Minimal Assistance 1=Total Assistance 5=Supervision or Setup 2=Maximal Assistance 6=Modified [place] 3=Moderate Assistance 7=Complete [place] Therapy Quality Codes: 6 Independent with activity with or without an assistive device 5 Patient requires set up or clean up by helper. Patient completes activity by themselves 4 Supervision or touching assist (CGA). [place] provide cues , steadying assist 3 The helper provides less than half the effort to complete the activity 2 The helper provides more than half the effort to complete the activity 1 Dependent. The helper does all the effort to complete an activity 7 Patient refused to complete or attempt activity 9 The patient did not perform the activity before the current illness or injury 88 Not attempted due to Medical conditions or safety concerns Functional Abilities and Goals: Independent: Patient completed the activities by him/herself, with or without an assistive device, with no assistance from a helper. Needed Some Help: Patient needed partial assistance from another person to complete activities. Dependent: A helper completed the activities for the patient. Unknown: Not Applicable: ADL PLOF Comments Pt. states that she was independent with basic self care skills. Self Care: Independent Functional Cognition: Unknown DME/Equipment: Tub/Shower DME/Equipment Comments Pt. has walker. OT Current Status Subjective No pain reported. Appearance Pt. up in chair. Agrees to work with OT. Mental Status/Objective Patient Orientation: Person, Place Current Hand Dominance: Right Upper Extremity ROM Pt. demonstrates approximately 90 degrees in left shoulder, but does not articulate why this is, other than she is seeing a physician for it. Full AROM in right UE. ADL-Treatment Transfers (B, C, W/C) (FIM): 4 (Sit-stand) Education OT Patient Education: Correct positioning, Modified ADL techniques, Progress toward Goal/Update tx plan, Purpose of tx/functional activities, Reviewed precautions, Rehab process, Transfer techniques Teaching Recipient: Patient Teaching Methods: Demonstration, Discussion Response to Teaching: Verbalize Understanding, Return Demonstration OT Short Term Goals Short Term Goals Transfers (B,C,W/C) (FIM): 5 1=Demonstrate adherence to instructed precautions during ADL tasks. 2=Patient will verbalize/demonstrate understanding of assistive devices/modifications for ADL. 3=Patient will improve strength/tolerance for activity to enable patient to perform ADL's. OT Electrical Integrator Goals Long-Term Goals Time Frame: Dec 22, 2018 Eating (FIM): 6 Eating (QC): 6 Groomin Oral Hygiene (QC): 6 Bathing(FIM): 5 Shower/Bathe Self (QC): 4 Upper Body Dressing(FIM): 6 Upper Body Dressing (QC): 6 Lower Body Dressing(FIM): 6 Lower Body Dressing (QC): 6 On/Off Footwear (QC): 6 Toileting(FIM): 6 Toileting Hygiene (QC): 6 Transfers (B,C,W/C) (FIM): 6 Toilet/Commode Transfer(FIM): 6 Toilet/Commode Transfer (QC): 6 Shower Transfer(FIM): 5 Additional Goals: 1-Demonstrate ADL Tasks, 2-Verbalize Understanding, 3- ImproveStrength/Ke[place] 1=Demonstrate adherence to instructed precautions during ADL tasks. 2=Patient will verbalize/demonstrate understanding of assistive devices/modifications for ADL. 3=Patient will improve strength/tolerance for activity to enable patient to perform ADL's. OT Education/Plan Problem List/Assessment Assessment: Decreased Activ Tolerance, Impaired Funct Balance, Impaired I ADL's, Impaired Self-Care Skills, Restricted Funct UE ROM Discharge Recommendations Plan/Recommendations: Continue POC Therapy D/C Recommendations: Assisted Living Equpiment Recommendations-D/C: Extended Bath Bench Treatment Plan/Plan of Care Treatment,Training & Education: Yes Patient would benefit from OT for education, treatment and training to promote independence in ADL's, mobility, safety and/or upper extremity function for ADL's. Plan of Care: ADL Retraining, Functional Mobility, Group Exercise/Act as Ind, UE Funct Exercise/Act Treatment Duration: Dec 22, 2018 Frequency: At least 5 of 7 days/Wk (IRF) Estimated Hrs Per Day: 1.5 hours per day Agreement: Yes Rehab Potential: Good Time/GCodes Start Time: 11:30 Stop Time: 12:00 Total Time Billed (hr/min): 30 Billed Treatment Time 1, EVM x 15minutes, FA x 15minutes BINU VILLALPANDO OT Dec 08, 2018 14:03
--- NOTE | 2018-12-08 14:17 | Occupational Ther Daily Note ---
OT Current Status-Daily Note Subjective Nrsng and family in room upon OT arrival. Pt alert sitting in chair finishing lunch. Pt agrees to therapy. Mental Status/Objective Patient Orientation: Person, Place, Time, Situation Therapy Code Descriptions/Definitions Functional [place] Measure: 0=Not Assessed/NA 4=Minimal Assistance 1=Total Assistance 5=Supervision or Setup 2=Maximal Assistance 6=Modified [place] 3=Moderate Assistance 7=Complete [place] ADL-Treatment Therapy Code Descriptions/Definitions Functional [place] Measure: 0=Not Assessed/NA 4=Minimal Assistance 1=Total Assistance 5=Supervision or Setup 2=Maximal Assistance 6=Modified [place] 3=Moderate Assistance 7=Complete [place] Therapy Quality Codes: 6 Independent with activity with or without an assistive device 5 Patient requires set up or clean up by helper. Patient completes activity by themselves 4 Supervision or touching assist (CGA). [place] provide cues , steadying assist 3 The helper provides less than half the effort to complete the activity 2 The helper provides more than half the effort to complete the activity 1 Dependent. The helper does all the effort to complete an activity 7 Patient refused to complete or attempt activity 9 The patient did not perform the activity before the current illness or injury 88 Not attempted due to Medical conditions or safety concerns Eating (FIM): 7 (Pt able to open containers, open a bag of chips, and drink I.) Eating (QC): 6 Grooming (FIM): 4 (Pt used FWW at sink. Pt able to brush teeth and hair, CGA. ) Oral Hygiene (QC): 4 Bathing (FIM): 4 (Pt needed Min A to wash Buttocks. Pt able to rinse and dry self, CGA. Pt required use of FWW, grabbar, and hand held shower head.) Bathing Location: L Arm, R Arm, L Upper Leg, R Upper Leg, L Lower Leg (including foot), R Lower Leg (including foot), Chest, Abdomen, Perineal Area Shower/Bathe Self (QC): 3 Upper Body (FIM): 5 ( Pt able to manage bra and t-shirt self, set up/ supervision. ) Upper Body Dressing (QC): 4 Lower Body Dressing (FIM): 4 (Pt able to intiate donning/doffing underwear and pants. Pt required use of FWW and CGA to pull pants up to waist.) Lower Body Dressing (QC): 4 On/Off Footwear (QC): 5 Toileting (FIM): 5 (Supervision. Pt required use of FWW and grabbar. Pt able to cleanse self in sitting after voiding. SBA to manipulate clothing.) Toileting Hygiene (QC): 4 Transfers (B, C, W/C) (FIM): 4 (Pt requires FWW and grabbar, CGA. ) Toilet/Commode Transfer (FIM): 4 (Pt requires FWW, grabbar, and CGA.) Toilet Transfer (QC): 4 Shower Transfer(FIM): 4 (Pt requires FWW, grabbar, shower bench, and CGA. ) Pt has electrician control equipment at home. Pt requires verbal cues to reach back for stand to sit transfers and to position self appropriately. After therapy, pt sitting in recliner with call light/phone in reach. All needs met in room. OT Short Term Goals Short Term Goals Transfers (B,C,W/C) (FIM): 5 1=Demonstrate adherence to instructed precautions during ADL tasks. 2=Patient will verbalize/demonstrate understanding of assistive devices/modifications for ADL. 3=Patient will improve strength/tolerance for activity to enable patient to perform ADL's. OT Senior Living Goals Trustee Of Estate Goals 1=Demonstrate adherence to instructed precautions during ADL tasks. 2=Patient will verbalize/demonstrate understanding of assistive devices/modifications for ADL. 3=Patient will improve strength/tolerance for activity to enable patient to perform ADL's. OT Education/Plan Problem List/Assessment Assessment: Decreased Activ Tolerance, Decreased Safety Aware, Decreased UE Strength, Impaired Coordination, Impaired Funct Balance, Impaired Self-Care Skills Discharge Recommendations Plan/Recommendations: Continue POC Treatment Plan/Plan of Care Patient would benefit from OT for education, treatment and training to promote independence in ADL's, mobility, safety and/or upper extremity function for ADL's. Treatment Duration: Oct 21, 2018 Frequency: At least 5 of 7 days/Wk (IRF) Estimated Hrs Per Day: 1.5 hours per day Rehab Potential: Good Time/GCodes Start Time: 13:10 Stop Time: 14:10 Total Time Billed (hr/min): 60 Billed Treatment Time 1 visit-ADL 4 (60 min) JJ ALFARO Dec 08, 2018 14:17
[2018-12-08] MEDS: GABAPENTIN 600 MG (NEURONTIN) TAB PO SCH ×2 (14:20→21:47)
--- NOTE | 2018-12-08 14:32 | NUR ---
ENVIRONMENTAL ADVISER met with patient and family to complete initial assessment. Patient was alert and oriented and agreeable to assessment. Patient admitted to a from internally with debility following several frequent falls within the last 2 days. 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 Family reports patient was functioning well up until approximately one week ago. Since that time patient has had over 15 falls. Family also reports a gradual decline in function over the past 3 years. Prior to one week ago patient did not utilize DME and was able to complete all ADLs and household tasks. Patient does however possess a single-point cane, standard walker, Rollator walker and shower chair. Family believes patients medications were mismanaged causing the reported dizziness which resulted in falls. Primary contact identified as [email or web address] and DPOA, Patrizia Chou at [phone] and secondary contacts as patients sons, Artur at [phone] and Kyle at [phone]. CP identified as Dr. Alfonso Benavides. Insurance verified as Medicare only with [employer] prescription coverage and preferred pharmacy as [facility]. Family expresses concerns about patient returning home upon hospital discharge. They have spoken with patient in regards to recommendation for assisted living, patient is agreeable. Family has scheduled an on-site evaluation from facility at 10 a.m. on Saturday. Family does inquire about a Medicaid application to assist with coverage for assisted living. ENVIRONMENTAL ADVISER provided checklist for needed documents to proceed with Medicaid application. ENVIRONMENTAL ADVISER will assist patient and family in completing this application once documents are gathered. ENVIRONMENTAL ADVISER reviewed typical ARU length of stay and weekly team conferences. Patient and family expressed no other concerns at this time. ENVIRONMENTAL ADVISER will continue to follow.
--- NOTE | 2018-12-08 15:17 | ST Cognitive Linguistic Eval ---
Speech Evaluation-General Medical Diagnosis Debility Onset Date: Dec 08, 2018 Therapy Diagnosis Therapy Diagnosis: Cognitive-communication Precautions Precautions: Fall Precautions/Isolations: Fall Prevention, Standard Precautions Referral Referring Physician: Dr. Arango Reason for Referral: Evaluation/Treatment Medical History Pertinent Medical History: CAD, COPD, DM, Dementia, HTN, Neuropathy, PVD CAD, COPD, DM, Dementia, HTN, PVD, Neuropathy Current History Debility Reviewed History: Yes Social History Home: Single Level Current Living Status: Alone Speech PLF-Current Status Prior Level of Function The patient lived alone and was independent with her daily needs prior to experiencing all the falls the past two weeks. Subjective The patient was pleasant and cooperative with the evaluation process. Language Eval: Auditory Comprehends Simple Yes/No Ques: Functional Indent/Objects Multiple [place]: Functional Ident/Pics in Multiple [place]: Functional Follows 1-Step Commands: Functional Follows Complex Directions: Mild Follows General Conversations: Functional Language Eval: Verbal Language Completes Spontaneous Greeting: Functional Produces Auto, Serial Info: Functional Imitates Simple Words/Phrases: Functional Word Finding: Functional Requests Basic Needs: Functional States Basic Personal Info: Functional Expresses Complex Ideas: Mild Objective Cognitive Domain Attention: WNL Memory: Mild Problem Solving: Mild Executive Functions: Mild Visuospatial Skills: Mild Composite Severity Rating: Mild Clock Drawing Severity Rating: Mild Score: 24/30 Range: Mild Neurocognitive Disorder Objective Formal/Standardized Tests [facility] Mental Status ([facility]) Results The patient scored a 24/30 which places her in the MNCD level of function Oral Motor/Speech Production Within functional limits, the patient is noted to be edentulous Impression The patient is a pleasant 68 year old woman who was admitted to the ARU after experiencing several falls in the past two weeks. The patient was given the SLUMS which resulted with a score of 24/30. This falls in the mild neurocognitive disorder range of function.The patient will receive skilled ST services for improving her cognitive status with focus on safety and independence. Communication/Social Cognition Comprehension: 5 Expression: 5 Social Interaction: 7 Problem Solvin Memory: 5 Speech Patient Assess Expression of Ideas/Wants: Exhibits (3) Understanding Verbal Content: Usually Understands (3) Brief Interview-Mental Status: Yes Repetition of Three Words: Three (3) Temporal Orientation: Year: Correct (3) Temporal Orientation: Month: Accurate within 5 days(2) Temporal Orientation: Day: Correct (1) Recall : Wear to say "Sock": Yes, no cue required (2) Recall : Color: Yes, after cueing (1) Recall : Bed: Yes,after cueing (1) Add-Enter 99 if pt cannot comp: 99 Memory/Recall Ability: Current season, That he or she is in a hsp/hsp unit Speech Short Term Goals Short Term Goals Short Term Goals 1) The patient will complete memory tasks related to her daily needs with 90% or greater. 2) The patient will complete problem solving tasks related to her daily needs with 90% or greater. 3) The patient will complete safety tasks related to her daily needs with 90% or greater. Speech Barrel Rifler Goals [facility] Goals The patient will improve cognitive-communication necessary for safety and daily living tasks with minimal assist. Speech-Plan Patient/Family Goals Patient/Family Goals: The patient plans on returning home post rehab if she is able. Treatment Plan Speech Therapy Treatment Plan: Continue Plan of Care The patient will receive skilled ST services for improving her cognitive f unction. Treatment Duration: Dec 12, 2018 Frequency: 5 times per week Estimated Hrs Per Day: .5 hour per day Rehab Potential: Good Barriers to Learning: Decreased cognitive function Pt/Family Agrees to Plan: Yes Safety Risks/Education Teaching Recipient: Patient Teaching Methods: Discussion Response to Teaching: Verbalize Understanding Education Topics Provided: Safety within her room and communication of her wants/needs Time Speech Therapy Time In: 15:00 Speech Therapy Time Out: 15:15 Total Billed Time: 15 Billed Treatment Time 1, SPSNDCOMP ANGY So Dec 08, 2018 15:16
[2018-12-08 15:55] VITALS: BP 128/78
--- NOTE | 2018-12-08 16:20 | Physical Therapy Daily Note ---
PT Daily Note-Current Subjective Agreeable to PT. No complaints. Transfers Therapy Code Descriptions/Definitions Functional [place] Measure: 0=Not Assessed/NA 4=Minimal Assistance 1=Total Assistance 5=Supervision or Setup 2=Maximal Assistance 6=Modified [place] 3=Moderate Assistance 7=Complete [place] Therapy Quality Codes: 6 Independent with activity with or without an assistive device 5 Patient requires set up or clean up by helper. Patient completes activity by themselves 4 Supervision or touching assist (CGA). [place] provide cues , steadying assist 3 The helper provides less than half the effort to complete the activity 2 The helper provides more than half the effort to complete the activity 1 Dependent. The helper does all the effort to complete an activity 7 Patient refused to complete or attempt activity 9 The patient did not perform the activity before the current illness or injury 88 Not attempted due to Medical conditions or safety concerns Treatments Pt walked 125 ft x 3 reps with FWW with close CGA and skilled cues for safety, posture and foot clearance. Sit to stand 2 x 5 reps for functional LE strength and to reinforce sequence and technique with transfer. In bed post treatment with needs met. Assessment Current Status: Good Progress PT Short Term Goals Short Term Goals Time Frame: Dec 15, 2018 Transfers (B,C,W/C) (FIM): 5 Gait (FIM): 5 Distance (FIM): 3=150 ft PT Intermediate Goals Global Expansion Sales Director Goals PT Intermediate Goals Time Frame: Dec 26, 2018 Transfers (B,C,W/C) (FIM): 7 Sit to Lying (QC): 6 Lying-Sitting on Side/Bed(QC): 6 Sit to Stand (QC): 6 Roll Left to Right (QC): 6 Chair/[id number] Xfer(QC): 6 Car Transfer (QC): 6 Does the Patient Walk: Yes Gait (FIM): 6 Gait distance (FIM): 3=150 ft Walk 10 feet (QC): 6 Walk 10ft-Uneven Surface(QC): 6 Walk 50ft with 2 Turns (QC): 6 Walk 150 ft (QC): 6 Gait Assistive Device: FWW Does the Pt use WC or Scooter?: No Stairs (FIM): 5 # of Steps: 4 1 Step (curb) (QC): 6 4 Steps (QC): 6 12 Steps (QC): 88 Picking up an Object (QC): 88 PT Plan Problem List Problem List: Activity Tolerance, Functional Strength, Safety Treatment/Plan Treatment Plan: Continue Plan of Care Treatment Plan: Bed Mobility, Education, Functional Activity [place], Functional Strength, Group Therapy, Gait, Safety, Therapeutic Exercise, Transfers Treatment Duration: Dec 26, 2018 Frequency: At least 5 of 7 days/Wk (IRF) Estimated Hrs Per Day: 1.5 hours per day Patient and/or Family Agrees t: Yes Time/GCodes Time In: 1520 Time Out: 1544 Total Billed Treatment Time: 24 Total Billed Treatment visit GT 24 JJ COREA PT Dec 08, 2018 16:20
[2018-12-08] MEDS: metFORMIN XR 500 MG (GLUCOPHAGE XR) TAB PO SCH (17:37)
[2018-12-08] MEDS: GLIMEPIRIDE 4 MG (AMARYL) TAB PO SCH (17:37)
[2018-12-08] MEDS: amLODIPine 5 MG (NORVASC) TAB PO SCH (17:37)
--- NOTE | 2018-12-08 19:06 | NUR ---
bedside report received SAMUEL JOHNS, assume care of pt
[2018-12-08] MEDS ORDERED: diphenhydrAMINE 25 MG TAB (BENADRYL) PO PRN (21:30)
[2018-12-08] MEDS ORDERED: CALCIUM CARBONATE 500 MG (TUMS) TAB.CHEW PO PRN (21:30)
[2018-12-08] MEDS ORDERED: guaiFENesin/CODEINE (ROBITUSSIN AC) 10ML UDC PO PRN (21:30)
[2018-12-08] MEDS ORDERED: ONDANSETRON 4 MG (ZOFRAN) ORAL DISSOLVE TAB PO PRN (21:30)
[2018-12-08] MEDS ORDERED: LOPERAMIDE 2 MG (IMODIUM) TABLET PO PRN (21:30)
[2018-12-08] MEDS ORDERED: MELATONIN 3 MG TABLET PO PRN (21:30)
[2018-12-08] MEDS ORDERED: ACETAMINOPHEN 500 MG TAB (TYLENOL) PO PRN (21:30)
--- NOTE | 2018-12-08 21:40 | NUR ---
assessments & interventions completed, see assessments & interventions, side rails up x4, bed alarm on fsbs 278 novolog 11 units given
[2018-12-08] MEDS: CEFDINIR 300 MG (OMNICEF) CAP PO SCH (21:47)
[2018-12-08] MEDS: buPROPion SR 150 MG (WELLBUTRIN SR) TAB PO SCH (21:47)
[2018-12-08] MEDS: ALPRAZolam 1 MG (XANAX) TAB PO SCH (21:47)
[2018-12-08] MEDS: QUEtiapine 25 MG (SEROquel) TAB IMMEDIATE RELEASE PO SCH (21:48)
[2018-12-08] MEDS: GEMFIBROZIL 600 MG (LOPID) TAB PO SCH (21:48)
[2018-12-09 05:42] VITALS: BP 160/77
[2018-12-09 05:48] LABS: BASOPHILS % (AUTO) 0 % (0-10); EOSINOPHILS # (AUTO) 0.3 10^3/uL (0.0-0.3); EOSINOPHILS % (AUTO) 4 % (0-10); HEMATOCRIT 39 % (35-52); HEMOGLOBIN 13.6 G/DL (11.5-16.0); LYMPHOCYTES # (AUTO) 1.8 X 10^3 (1.0-4.0); LYMPHOCYTES % (AUTO) 28 % (12-44); MEAN CORPUSCULAR HEMOGLOBIN 30 PG (25-34); MEAN CORPUSCULAR HGB CONC 35 G/DL (32-36); MEAN CORPUSCULAR VOLUME 87 FL (80-99); MEAN PLATELET VOLUME 9.5 FL (7.4-10.4); MONOCYTES # (AUTO) 0.7 X 10^3 (0.0-1.0); MONOCYTES % (AUTO) 12 % (0-12); NEUTROPHILS # (AUTO) 3.6 X 10^3 (1.8-7.8); NEUTROPHILS % (AUTO) 56 % (42-75); PLATELET COUNT 160 10^3/uL (130-400); RED CELL DISTRIBUTION WIDTH 15.4 % (10.0-14.5); WHITE BLOOD COUNT 6.5 10^3/uL (4.3-11.0)
[2018-12-09 06:08] LABS: ALBUMIN 3.9 GM/DL (3.2-4.5); BILIRUBIN,TOTAL 0.6 MG/DL (0.1-1.0); CALCIUM 9.7 MG/DL (8.5-10.1); CREATININE SERUM 1.09 MG/DL (0.60-1.30); POTASSIUM 4.2 MMOL/L (3.6-5.0); TOTAL PROTEIN 6.6 GM/DL (6.4-8.2)
[2018-12-09] MEDS: inSUlin ASPART (NovoLOG) 1 UNIT/0.01 ML (CHARGE PER UNIT) SC SCH ×4 (06:32→21:15)
[2018-12-09] MEDS: metFORMIN XR 500 MG (GLUCOPHAGE XR) TAB PO SCH ×2 (06:32→17:10)
[2018-12-09] MEDS: GLIMEPIRIDE 4 MG (AMARYL) TAB PO SCH ×2 (06:32→17:10)
--- NOTE | 2018-12-09 07:09 | NUR ---
bedside report given to ANNIE JOHNS
[2018-12-09] MEDS: QUEtiapine 25 MG (SEROquel) TAB IMMEDIATE RELEASE PO SCH ×2 (08:20→21:10)
[2018-12-09] MEDS: buPROPion SR 150 MG (WELLBUTRIN SR) TAB PO SCH ×2 (08:20→21:09)
[2018-12-09] MEDS: CALCIUM CARB + VIT D 600 MG (CALCARB + D) TAB PO SCH (08:21)
[2018-12-09] MEDS: PANTOPRAZOLE 40 MG (PROTONIX) TAB PO SCH (08:21)
[2018-12-09] MEDS: GABAPENTIN 600 MG (NEURONTIN) TAB PO SCH ×3 (08:21→21:09)
[2018-12-09] MEDS: ASPIRIN E.C. 81 MG (ECOTRIN) TAB PO SCH (08:21)
[2018-12-09] MEDS: CEFDINIR 300 MG (OMNICEF) CAP PO SCH ×2 (08:21→21:10)
[2018-12-09] MEDS: MELOXICAM 7.5 MG (MOBIC) TABLET PO SCH (08:21)
[2018-12-09] MEDS: GEMFIBROZIL 600 MG (LOPID) TAB PO SCH ×2 (08:21→21:10)
[2018-12-09] MEDS: ALPRAZolam 0.5 MG (XANAX) TAB PO SCH (08:22)
[2018-12-09] MEDS: SENNA W/DOCUSATE (SENOKOT S) TABLET PO SCH ×2 (08:23→21:18)
--- NOTE | 2018-12-09 08:57 | NUR ---
Per Dr. Arango, change Levemir to 25 units SQ BID.
--- NOTE | 2018-12-09 09:04 | Individualized Plan of Care ---
Individualized Plan of Care Rehab Nursing IPOC Order Admission Date Dec 08, 2018 at 10:30 Current Orders Orders Admission Order(Inpt,Obs,Sdc) (12/08/18 10:49) Vital Signs: Per Unit Policy ( 08,16,00 (12/08/18 10:49) Sterile Tech-Inpt Rehab Con (12/08/18 10:49) Rehab Nursing Orders-Ipoc (12/08/18 10:49) Physical Therapy Rehab Orders (12/08/18 10:49) Occupational Therapy Rehab Ord (12/08/18 10:49) Speech Therapy Rehab Orders (12/08/18 10:49) Intake & Output 06,14,22 (12/08/18 10:49) Precautions (Aru) (12/08/18 10:49) Weekly Weight (Lbs) WEEK (12/08/18 10:49) Rehab-Intensity Of Therapy (12/08/18 10:49) Initiate Admission Nursing Pro .admission (12/08/18 10:49) Accucheck Achs ACHS (12/08/18 11:40) Cho 60g/M 3snack (16-1999 [place]) (12/08/18 Lunch) Insulin Aspart (Novolog) (Novolog (Charg (12/08/18 13:00) Alprazolam Tablet (Xanax Tablet) (12/09/18 09:00) Gabapentin Capsule/Tablet (Neurontin Cap (12/08/18 13:00) Metformin Xr Tablet (Glucophage Xr Table (12/08/18 17:00) Pantoprazole Tablet (Protonix Tablet) (12/09/18 09:00) (Nf) Alendronate Sodium (12/14/18 13:00) Amlodipine Tablet (Norvasc Tablet) (12/08/18 18:00) Aspirin Enteric Coated Tablet (Ecotrin T (12/09/18 09:00) Calcium Carbonate W/Vitamin D3 (Calcarb (12/09/18 09:00) Cefdinir Capsule (Omnicef Capsule) (12/08/18 21:00) Gemfibrozil Tablet (Lopid Tablet) (12/08/18 21:00) Glimepiride Tablet (Amaryl Tablet) (12/08/18 16:30) Insulin Determir (Per Unit) (Levemir (Pe (12/09/18 09:00) Meloxicam Tablet (Mobic Tablet) (12/09/18 09:00) Quetiapine Immediate Release (Seroquel I (12/08/18 21:00) Ambulate 08,12,20 (12/08/18 13:27) Sequential Compression Device (12/08/18 13:27) Insulin Aspart (Novolog) (Novolog (Charg (12/08/18 12:51) Alprazolam Tablet (Xanax Tablet) (12/08/18 21:00) Bupropion Sr 12 Hr Tablet (Wellbutrin Sr (12/08/18 21:00) Patient Visit (12/08/18 ) Pt Eval Moderate Complexity (12/08/18 ) Functional Activities, Ea 15 (12/08/18 ) Patient Visit (12/08/18 ) Speech Sound Lang Comp (12/08/18 ) Patient Visit (12/08/18 ) Gait Training, Ea 15 Min (12/08/18 ) Cbc With Automated Diff (12/09/18 06:00) Comprehensive Metabolic Panel (12/09/18 06:00) Acetaminophen Tablet (Tylenol Tablet) (12/08/18 21:30) Calcium Carbonate Chew Tablet (Antacid C (12/08/18 21:30) Diphenhydramine Tablet (Benadryl Tablet) (12/08/18 21:30) Docusate Sodium Capsule (Colace Capsule) (12/08/18 21:30) Loperamide Tablet (Imodium Tablet) (12/08/18 21:30) Melatonin Tablet (Melatonin Tablet) (12/08/18 21:30) Ondansetron Oral Dissolve Tab (Zofran (12/08/18 21:30) Senna S Tablet (Senokot S Tablet) (12/09/18 09:00) Guaifenesin/Codeine Syrup (Robitussin Ac (12/08/18 21:30) Insulin Determir (Per Unit) (Levemir (Pe (12/11/18 21:00) Patient Visit (12/09/18 ) Exercise Therap, Ea 15 Min (12/09/18 ) Gait Training, Ea 15 Min (12/09/18 ) Patient Visit (12/09/18 ) Treat. Speech/Lang/Voice (12/09/18 ) Patient Visit (12/09/18 ) Exercise Therap, Ea 15 Min (12/09/18 ) Gait Training, Ea 15 Min (12/09/18 ) Insulin Determir (Per Unit) (Levemir (Pe (12/09/18 20:58) Rehab Nursing Orders: Ongoing Assess. of Cognitive Status, Ongoing Assess. of Function Status, Bladder Management, Bladder Scan, Bladder Training, Bowel Management, Bowel Training, Disease Management & Educaiton, Fluid/Electrolyte/Nutrition Mgmt, Infection Prevention, Medication Management & Education, Management of Risks & Complications, Management of Skin Intergrity, Nutrition Management, Pain Management, Patient/Family Support, Safety Management Intensity of Therapy to be met Patient to be seen: Min.3h per day/5 of 7d PT IPOC Problem List: Activity Tolerance, Functional Strength, Safety Treatment Plan: Continue Plan of Care Bed Mobility, Education, Functional Activity [place], Functional Strength, Group Therapy, Gait, Safety, Therapeutic Exercise, Transfers Treatment Duration: Dec 26, 2018 Frequency: At least 5 of 7 days/Wk (IRF) Estimated Hrs Per Day: 1.5 hours per day OT IPOC Problems: Decreased Activ Tolerance, Decreased Safety Aware, Decreased UE Strength, Impaired Coordination, Impaired Funct Balance, Impaired Self-Care Skills OT Treatment, Training and Edu: Yes Plan of Care: ADL Retraining, Functional Mobility, Group Exercise/Act as Ind, UE Funct Exercise/Act Treatment Duration: Oct 21, 2018 Frequency: At least 5 of 7 days/Wk (IRF) Estimated Hrs Per Day: 1.[address] IPOC Speech Therapy Treatment Plan: Continue Plan of Care Treatment Duration: Dec 12, 2018 Frequency: 5 times per week Estimated Hrs Per Day: .5 hour per day Sterile Tech/Case Mgmt Sterile Tech/Case Managemen: Discharge Planning Dietitian/Tree Topper Dietitian/Tree Topper to monitor nutritional status and make changes and/or recommendations as needed and work with speech pathology on dietary upgrades as the occur. Physician IPOC Medical Issues being managed closely and that require the 24 hour availability of a physician: Frequent falls with increased insulin needs for hyperglycemia will require close monitoring Brief Synthesis of Preadmission Screen, Post-Admission Evaluation, and Therapy Evaluations: PT will focus on fall prevention and strengthening with use of walker OT will increase ADL independence Medical Prognosis: Good Anticipated Length of Stay: & days GUADALUPE AUSTIN DO Dec 09, 2018 09:04
--- NOTE | 2018-12-09 09:04 | PM&R Progress Note ---
Subjective HPI/CC On Admission Date Seen by Provider: Dec 09, 2018 Time Seen by Provider: 09:00 CC: Frequent Falls Ms. Chou is a 68 y/o WF with PMH of HTN, DM, hyperlipidemia and [place] presents with a chief complaint of frequent falls. 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 She states she starts to get dizzy and her legs get weak causing her to fall. She denies loss of consciousness, but describes the room spinning prior to each episode. She presented to the ED after her last fall when she was found by her son and was unable to get her up. She denies urinary urgency or burning, fever, chills. She is occasionally incontinent of stool, and has been for the previous few months. Prior to the last week, she was independent with all ADL's and without falls. She has been to the ED for falls over the last couple of weeks for multiple falls. She was counselled to use a FWW, but has not been compliant. From social context, she lives alone in a 2nd floor, carpeted apartment. She has no stairs to navigate as there is an elevator to the second floor. Her PCP is Dr. Benavides. She has multiple prescriptions which could be exacerbating her symptoms. She has, in previous admissions, been open to the idea of assisted living. Social hx: denies alcohol use, smokes 1ppd for many years, and denies etoh usage PSH: B/l carotid endarterectomy, bso/edith Note per Balbir Richardson [facility] CC: Multiple falls with debility HPI: This is a 68yoWF who previously lived at home who was brought to the ER on Saturday night after multiple falls requiring multiple ER visits last week who suffered facial injuries and ecchymosis B/L in the most recent fall when the family found her down who has a PMH of severe neuropathy and diabetic complica tions along with peripheral vascular disease s/p B/L CEA managed by Dr. Springer and Dr. Benavides who presents to inpatient rehab in need of intensive therapy to prevent falls which could harm her further and has reluctantly agreed to go to assisted living because she really is unsafe to return home and live independently. At this current time pt feels well, her bowels are moving, urinating well, acute renal failure with creatinine of 1.6 improved with IV fluids given over night on Saturday night so I heplocked those yesterday and the rest of her labs look really good. At this current time pt is ready for rehab and is a poor historian with her other medical issues so will try to grab details from PCP office and pharmacy. Subjective/Events-last exam Labs reviewed, everything within normal limits. Bowel movement yesterday. Levemir will be increased from 25 once a day to 25 BID for her blood sugar control. Sliding scale C with Novolog has been maintained in the meantime. Working on posture and anything to prevent falls. Checked meds and labs. Will try to work on dizziness from a therapy standpoint to try to manage that but that is long-standing. Conferred with RN. Reviewed therapy notes. Checked meds and labs. Review of Systems General: Fatigue Musculoskeletal: neck pain, shoulder pain, hand pain Neurological: Weakness, Numbness, Incoordination Objective Exam Vital Signs Vital Signs Date Time Temp Pulse Resp B/P (MAP) Pulse Ox O2 Delivery O2 Flow Rate FiO2 12/09/18 17:13 98.2 92 18 144/71 (95) 95 Room Air Capillary Refill : General Appearance: No Apparent Distress, WD/WN, Chronically ill, Obese HEENT: PERRL/EOMI, Normal ENT Inspection, Pharynx Normal, Moist Mucous Membranes, Other (facial ecchymosis) Neck: Full Range of Motion, Normal Inspection, Non Tender, Supple Respiratory: Chest Non Tender, Lungs Clear, Normal Breath Sounds, No Accessory Muscle Use, No Respiratory Distress Cardiovascular: Regular Rate, Rhythm, No Edema, No Gallop, No JVD, No Murmur Gastrointestinal: Normal Bowel Sounds, No Organomegaly, No Pulsatile Mass, Non Tender, Soft Back: Normal Inspection, No CVA Tenderness, No Vertebral Tenderness Extremity: Normal Capillary Refill, Normal Inspection, Normal Range of Motion, Non Tender, No Calf Tenderness, No Pedal Edema Neurologic/Psychiatric: Alert, Oriented x3, No Motor/Sensory Deficits, Normal Mood/Affect Skin: Normal Color, Warm/Dry Lymphatic: No Adenopathy Results/Procedures Lab Laboratory Tests 12/09/18 05:10 Patient resulted labs reviewed. FIM Transfers Therapy Code Descriptions/Definitions Functional [place] Measure: 0=Not Assessed/NA 4=Minimal Assistance 1=Total Assistance 5=Supervision or Setup 2=Maximal Assistance 6=Modified [place] 3=Moderate Assistance 7=Complete [place] Therapy Quality Codes: 6 Independent with activity with or without an assistive device 5 Patient requires set up or clean up by helper. Patient completes activity by themselves 4 Supervision or touching assist (CGA). [place] provide cues , steadying assist 3 The helper provides less than half the effort to complete the activity 2 The helper provides more than half the effort to complete the activity 1 Dependent. The helper does all the effort to complete an activity 7 Patient refused to complete or attempt activity 9 The patient did not perform the activity before the current illness or injury 88 Not attempted due to Medical conditions or safety concerns Transfers (B, C, W/C) (FIM): 4 (Pt requires FWW and grabbar, CGA. ) Roll Left to Right (QC): 4 Supine to/from Sit: 3 (min assist to sit up but mod assist to lie down) Sit to/from Stand: 4 (min assist to come to a stand) Sit to Lying (QC): 3 Sit to Stand (QC): 3 Chair/Crs-ji-Rkecc Xfer(QC): 4 Car Transfer (QC): 3 (assist with both legs to get into the car.) Gait Training Does the Patient Walk?: Yes Gait (FIM): 2 (limited by distance.) Distance (FIM): 6=953-52 ft Walk 10 feet (QC): 3 Walk 50 ft with 2 Turns(QC): 3 Walk 150 ft (QC): 88 Walking 10ft/uneven surface-QC: 3 Gait Level of Assist: 3 (pt requires min assist for gait for balance and to steady her; she had 2 episodes of dizziness that required mod assist to stay upright. ) Gait Assistive Device: FWW Wheelchair Training Does the Pt Use a Wheelchair?: No Stair Training Stairs (FIM): 1 #of Steps: 1 1 Step (curb) (QC): 3 4 Steps (QC): 88 Level of Assist: 3 (min assist to step and and to lower off.) Balance Picking up an Object (QC): 88 Mental Status/Objective Comprehension: 5 Expression: 5 Social Interaction: 7 Problem Solvin Memory: 5 ADL-Treatment Feedin (Pt able to open containers, open a bag of chips, and drink I.) Eating (QC): 6 Groomin (Pt used FWW at sink. Pt able to brush teeth and hair, CGA. ) Oral Hygiene (QC): 4 Bathin (Pt needed Min A to wash Buttocks. Pt able to rinse and dry self, CGA. Pt required use of FWW, grabbar, and hand held shower head.) Bathing Location: L Arm, R Arm, L Upper Leg, R Upper Leg, L Lower Leg (including foot), R Lower Leg (including foot), Chest, Abdomen, Perineal Area Shower/Bathe Self (QC): 3 Upper Extremity Dressin ( Pt able to manage bra and t-shirt self, set up/ supervision. ) Upper Body Dressing (QC): 4 Lower Extremity Dressin (Pt able to intiate donning/doffing underwear and pants. Pt required use of FWW and CGA to pull pants up to waist.) Lower Body Dressing (QC): 4 On/Off Footwear (QC): 5 Toiletin (Supervision. Pt required use of FWW and grabbar. Pt able to cleanse self in sitting after voiding. SBA to manipulate clothing.) Toileting Hygiene (QC): 4 Toilet/Commode Transfer: 4 (Pt requires FWW, grabbar, and CGA.) Toilet Transfer (QC): 4 Shower: 4 (Pt requires FWW, grabbar, shower bench, and CGA. ) Assessment/Plan Assessment and Plan Assess & Plan/Chief Complaint Assessment: Fall Facial trauma Neuropathy Chronic pain Anxiety CAD PVD HTN Dementia Plan: IRF protocol [place] at [place] Home meds Increase insulin (1) Fall Status: Acute Qualifiers: Encounter type: subsequent encounter Qualified Codes: W19.XXXD - Unspecified fall, subsequent encounter (2) Physical deconditioning Status: Acute (3) Debility Status: Acute (4) Diabetes mellitus Status: Chronic Qualifiers: Diabetes mellitus type: type 2 Diabetes mellitus [facility] insulin use: without [facility] use Diabetes mellitus complication status: with other specified complication Qualified Codes: E11.69 - Type 2 diabetes mellitus with other specified complication (5) CAD (coronary artery disease) Status: Chronic Qualifiers: Coronary Disease-Associated Artery/Lesion type: [place] artery [place] vs. transplanted heart: [place] heart Associated angina: without angina Qualified Codes: I25.10 - Atherosclerotic heart disease of [place] coronary artery without angina pectoris (6) Hyperlipidemia Status: Chronic Qualifiers: Hyperlipidemia type: mixed hyperlipidemia Qualified Codes: E78.2 - Mixed hyperlipidemia (7) Acute renal insufficiency Status: Acute (8) Neuropathy Status: Chronic (9) PVD (peripheral vascular disease) Status: Chronic (10) Hypertension Status: Chronic Qualifiers: Hypertension type: essential hypertension Qualified Codes: I10 - Essential (primary) hypertension (11) Facial trauma Status: Acute Qualifiers: Encounter type: subsequent encounter Qualified Codes: S09.93XD - Unspecified injury of face, subsequent encounter (12) Renal failure (ARF), acute on chronic Status: Acute Qualifiers: Acute renal failure type: unspecified (13) Leukocytosis Status: Acute Qualifiers: Leukocytosis type: leukemoid reaction Qualified Codes: D72.823 - Leukemoid reaction (14) H/O carotid endarterectomy Status: Chronic GUADALUPE AUSTIN DO Dec 09, 2018 09:04
--- NOTE | 2018-12-09 09:33 | Physical Therapy Daily Note ---
PT Daily Note-Current Subjective Reports she has been feeling dizzy today. Reports she has a sudden onset and then it clears. Agrees to PT. Pain Numeric Pain Scale: 0-No Pain Location: No Pain Reported Mental Status Patient Orientation: Person, Place, Time, Situation Transfers Therapy Code Descriptions/Definitions Functional [place] Measure: 0=Not Assessed/NA 4=Minimal Assistance 1=Total Assistance 5=Supervision or Setup 2=Maximal Assistance 6=Modified [place] 3=Moderate Assistance 7=Complete [place] Therapy Quality Codes: 6 Independent with activity with or without an assistive device 5 Patient requires set up or clean up by helper. Patient completes activity by themselves 4 Supervision or touching assist (CGA). [place] provide cues , steadying assist 3 The helper provides less than half the effort to complete the activity 2 The helper provides more than half the effort to complete the activity 1 Dependent. The helper does all the effort to complete an activity 7 Patient refused to complete or attempt activity 9 The patient did not perform the activity before the current illness or injury 88 Not attempted due to Medical conditions or safety concerns Transfers (B, C, W/C) (FIM): 3 Supine to/from Sit: 3 (mod assist to lift her trunk from the mat) Sit to/from Stand: 4 (min to CGA with skilled cues for hand placement and sequencing. ) Pt tends to sit before being completely square to the chair. Gait Training Does the Patient Walk?: Yes Gait (FIM): 2 Distance (FIM): 0=400-19 ft Distance: 125 ft x 5 reps Gait Assistive Device: FWW Pt tends to keep walker too far ahead and head down with decreased foot clearance; corrects with VC but requires VC's 50 % of the time. Exercises Supine Ex: Bridging, Ankle pumps, Heel Slides, Short Arc Quads, Straight leg raise Supine Reps: 15 (to promote LE strength and functional act cherelle for improved gait and transfers. ) Seated Therapy Exercises: Ankle pumps, Sit to stand, Long arc quads, Hip flexion Seated Reps: 15 (to promote LE strength and functional act tolerance for improved transfers and gait. ) Assessment Current Status: Good Progress Dizzy episodes increase fall risk at this time; no alexus LOB noted this visit. Pt fatigured post treatment. PT Short Term Goals Short Term Goals Time Frame: Dec 15, 2018 Transfers (B,C,W/C) (FIM): 5 Gait (FIM): 5 Distance (FIM): 3=150 ft PT Lead Nurse Goals Mcfp Goals PT Mcfp Goals Time Frame: Dec 26, 2018 Transfers (B,C,W/C) (FIM): 7 Sit to Lying (QC): 6 Lying-Sitting on Side/Bed(QC): 6 Sit to Stand (QC): 6 Roll Left to Right (QC): 6 Chair/Qjq-ge-Awyuq Xfer(QC): 6 Car Transfer (QC): 6 Does the Patient Walk: Yes Gait (FIM): 6 Gait distance (FIM): 3=150 ft Walk 10 feet (QC): 6 Walk 10ft-Uneven Surface(QC): 6 Walk 50ft with 2 Turns (QC): 6 Walk 150 ft (QC): 6 Gait Assistive Device: FWW Does the Pt use WC or Scooter?: No Stairs (FIM): 5 # of Steps: 4 1 Step (curb) (QC): 6 4 Steps (QC): 6 12 Steps (QC): 88 Picking up an Object (QC): 88 PT Plan Problem List Problem List: Activity Tolerance, Functional Strength, Safety, Balance, Gait, Transfer, Bed Mobility Treatment/Plan Treatment Plan: Continue Plan of Care Treatment Plan: Bed Mobility, Education, Functional Activity Ke[place], Functional Strength, Group Therapy, Gait, Safety, Therapeutic Exercise, Transfers Treatment Duration: Dec 26, 2018 Frequency: At least 5 of 7 days/Wk (IRF) Estimated Hrs Per Day: 1.5 hours per day Patient and/or Family Agrees t: Yes Safety Risks/Education Patient Education: Transfer Techniques, Safety Issues Teaching Recipient: Patient Teaching Methods: Demonstration, Discussion Time/GCodes Time In: 825 Time Out: 925 Total Billed Treatment Time: 60 Total Billed Treatment visit EX 30 GT 30 JJ COREA PT Dec 09, 2018 09:33
--- NOTE | 2018-12-09 10:12 | Progress Note - Hospitalist ---
[facility] 12/09/18 1012: Progress Note Ms Chou had no acute events overnight In no pain Compliant with therapy yesterday Therapy to work with vestibular symptoms VESTA ARANGO DO 12/09/18 2100: Supervisory-Addendum Brief Verification & Attestation Participated in pt care: history, MDM, physical Personally performed: exam, history, MDM, supervision of care Care discussed with: Medical Student Procedures: n/a Results interpretation: Verified all documentation Verification and Attestation of Medical Student E/M Service A medical student performed and documented this service in my presence. I reviewed and verified all information documented by the medical student and made modifications to such information, when appropriate. I personally performed the physical exam and medical decision making. Vesta Arango, Dec 09, 2018,21:00 [facility] Dec 09, 2018 10:12 VESTA ARANGO DO Dec 09, 2018 21:00
--- NOTE | 2018-12-09 10:43 | Occupational Ther Daily Note ---
OT Current Status-Daily Note Subjective Pt sitting in chair, agrees to treatment. Pt has no c/o pain. Mental Status/Objective Therapy Code Descriptions/Definitions Functional [place] Measure: 0=Not Assessed/NA 4=Minimal Assistance 1=Total Assistance 5=Supervision or Setup 2=Maximal Assistance 6=Modified [place] 3=Moderate Assistance 7=Complete [place] ADL-Treatment Pt declined shower this morning, but would like to change clothes. Sit to stand with supervision. Gait to restroom with FWW. Transfer to toilet with CGA for balance. Pt able to complete toileting hygiene with SBA. Pt changed Depends and pants while seated on toilet with CGA for balance during pant hike. Don shoes with SBA. Pt changed shirt with set up. Stood at sink to wash hands and comb hair with SBA. Therapy Code Descriptions/Definitions Functional [place] Measure: 0=Not Assessed/NA 4=Minimal Assistance 1=Total Assistance 5=Supervision or Setup 2=Maximal Assistance 6=Modified [place] 3=Moderate Assistance 7=Complete [place] Therapy Quality Codes: 6 Independent with activity with or without an assistive device 5 Patient requires set up or clean up by helper. Patient completes activity by themselves 4 Supervision or touching assist (CGA). [place] provide cues , steadying assist 3 The helper provides less than half the effort to complete the activity 2 The helper provides more than half the effort to complete the activity 1 Dependent. The helper does all the effort to complete an activity 7 Patient refused to complete or attempt activity 9 The patient did not perform the activity before the current illness or injury 88 Not attempted due to Medical conditions or safety concerns Grooming (FIM): 5 Oral Hygiene (QC): 4 Upper Body (FIM): 5 Upper Body Dressing (QC): 5 Lower Body Dressing (FIM): 4 (CGA) Lower Body Dressing (QC): 4 On/Off Footwear (QC): 4 Toileting (FIM): 4 (CGA) Toileting Hygiene (QC): 4 Toilet/Commode Transfer (FIM): 4 (CGA) Toilet Transfer (QC): 4 Other Treatment Gait to therapy gym with FWW. Arm bike x10 minutes to increase overall strength and activity tolerance needed for functional task completion. Pt completed activity with minimal resistance and slow pace. Three rest breaks taken. Pt completed resistance peg activity with bilateral UE with 1# weights in place to increase strength and coordination/manipulation skills. Pt able to complete task with increased time. Graded clothespin activity with bilateral hands to increase senior talent acquisition specialist/pinch strength for ADLs. Pt returned to room and transferred to bed with CGA. Pt requires cues for safety and walker use. Sit to supine with SBA. Pt resting in bed with needs met after session. OT Short Term Goals Short Term Goals Transfers (B,C,W/C) (FIM): 5 1=Demonstrate adherence to instructed precautions during ADL tasks. 2=Patient will verbalize/demonstrate understanding of assistive devices/modifications for ADL. 3=Patient will improve strength/tolerance for activity to enable patient to p erform ADL's. OT Global Professional Goals Global Professional Goals Time Frame: Dec 22, 2018 Eating (FIM): 6 Eating (QC): 6 Groomin Oral Hygiene (QC): 6 Bathing(FIM): 5 Shower/Bathe Self (QC): 4 Upper Body Dressing(FIM): 6 Upper Body Dressing (QC): 6 Lower Body Dressing(FIM): 6 Lower Body Dressing (QC): 6 On/Off Footwear (QC): 6 Toileting(FIM): 6 Toileting Hygiene (QC): 6 Transfers (B,C,W/C) (FIM): 6 Toilet/Commode Transfer(FIM): 6 Toilet/Commode Transfer (QC): 6 Shower Transfer(FIM): 5 Additional Goals: 1-Demonstrate ADL Tasks, 2-Verbalize Understanding, 3- ImproveStrength/Ke[place]chi 1=Demonstrate adherence to instructed precautions during ADL tasks. 2=Patient will verbalize/demonstrate understanding of assistive devices/ modifications for ADL. 3=Patient will improve strength/tolerance for activity to enable patient to perform ADL's. OT Education/Plan Discharge Recommendations Plan/Recommendations: Continue POC Treatment Plan/Plan of Care Patient would benefit from OT for education, treatment and training to promote independence in ADL's, mobility, safety and/or upper extremity function for ADL's. Plan of Care: ADL Retraining, Functional Mobility, Group Exercise/Act as Ind, UE Funct Exercise/Act Treatment Duration: Oct 21, 2018 Frequency: At least 5 of 7 days/Wk (IRF) Estimated Hrs Per Day: 1.5 hours per day Agreement: Yes Rehab Potential: Good Time/GCodes Start Time: 09:30 Stop Time: 10:45 Total Time Billed (hr/min): 75 Billed Treatment Time 1 visit, ADLx2(30minutes), EXx3(45minutes) FRIDA MEJÍA OT Dec 09, 2018 10:43
--- NOTE | 2018-12-09 13:27 | Speech Therapy Daily Note ---
Speech Daily Progress Note Subjective Date Seen by Provider: Dec 09, 2018 Time Seen by Provider: 00:30 The patient was laying in her bed resting after her PT when I entered her room. Objective The patient completed a series of problem solving tasks related to her daily routine at 70% with moderate verbal cues and/or repetitions. Assessment Assessment Current Status: Fair Progress Treatment Plan Continue Plan of Care Communication Comprehension: 5 Expression: 5 Social Cognition Social Interaction: 7 Problem Solvin Memory: 5 Speech Short Term Goals Short Term Goals Short Term Goals 1) The patient will complete memory tasks related to her daily needs with 90% or greater. 2) The patient will complete problem solving tasks related to her daily needs with 90% or greater. 3) The patient will complete safety tasks related to her daily needs with 90% or greater. Speech Penitentiary Goals Child Support Investigator Goals The patient will improve cognitive-communication necessary for safety and daily living tasks with minimal assist. Speech-Plan Patient/Family Goals Patient/Family Goals: The patient plans on returning home to her apartment with family support post rehab. Treatment Plan Speech Therapy Treatment Plan: Continue Plan of Care The patient participated well with therapy. Treatment Duration: Dec 19, 2018 Frequency: 5 times per week Estimated Hrs Per Day: .5 hour per day Rehab Potential: Good Barriers to Learning: The patient has mild cognitive deficits Pt/Family Agrees to Plan: Yes Safety Risks/Education Teaching Recipient: Patient Teaching Methods: Discussion Response to Teaching: Verbalize Understanding Education Topics Provided: Safety and procedures within her room Time Speech Therapy Time In: 11:00 Speech Therapy Time Out: 11:30 Total Billed Time: 30 Billed Treatment Time 1SHAYLA BETHANIA ST Dec 09, 2018 13:27
--- NOTE | 2018-12-09 15:15 | Physical Therapy Daily Note ---
PT Daily Note-Current Subjective Pt agreeable to PT session Pain Numeric Pain Scale: 0-No Pain Appearance Pt in bed awake and alert visiting with son upon arrival. At end of session, pt in bed per pt request, call light, phone and bedside table within reach Mental Status Patient Orientation: Person, Place, Time, Eyes Open, Situation Transfers Therapy Code Descriptions/Definitions Functional [place] Measure: 0=Not Assessed/NA 4=Minimal Assistance 1=Total Assistance 5=Supervision or Setup 2=Maximal Assistance 6=Modified [place] 3=Moderate Assistance 7=Complete [place] Therapy Quality Codes: 6 Independent with activity with or without an assistive device 5 Patient requires set up or clean up by helper. Patient completes activity by themselves 4 Supervision or touching assist (CGA). [place] provide cues , steadying assist 3 The helper provides less than half the effort to complete the activity 2 The helper provides more than half the effort to complete the activity 1 Dependent. The helper does all the effort to complete an activity 7 Patient refused to complete or attempt activity 9 The patient did not perform the activity before the current illness or injury 88 Not attempted due to Medical conditions or safety concerns Transfers (B, C, W/C) (FIM): 4 Scootin Rollin Supine to/from Sit: 5 (seval unsuccessful attempts, pt then given instruction on technique rolling to side, legs off bed and pushing up with arms, able to then perform supine to sit upon 1st attempt 3 more times. Sit to supine SBA) Sit to/from Stand: 4 (CGA provided for safety) Pt able to follow instruction for technique for safety and ease of transitions but requiring re instruction Gait Training Does the Patient Walk?: Yes Gait (FIM): 4 Distance (FIM): 3=150 ft Distance: 240, 135 Gait Level of Assist: 4 (LOB x2 episodes requiring min A to correct due to onset of dizziness) Gait Persons Needed: 1 Gait Assistive Device: FWW occasional dizziness causing LOB requiring min A to correct, decreased step height. Requires inst for posture and gait quality Exercises NuStep Minutes: 15 NuStep Workload: 3 (LE's only, seat 6, slight LLE hip ER with inst to "hold knee in", report of discomfort in foot ) Treatments bed mobility, transfers, gait, safety, balance, strength, activity tolerance, education, functional mobility Assessment Current Status: Good Progress improved distance with gait but with increased LOB, fatigue and dizziness. Decreased physical A with supine to sit transfers with instruction provided PT Short Term Goals Short Term Goals Time Frame: Dec 15, 2018 Transfers (B,C,W/C) (FIM): 5 Gait (FIM): 5 Distance (FIM): 3=150 ft PT Steel Rod Buster Goals Steel Rod Buster Goals PT Steel Rod Buster Goals Time Frame: Dec 26, 2018 Transfers (B,C,W/C) (FIM): 7 Sit to Lying (QC): 6 Lying-Sitting on Side/Bed(QC): 6 Sit to Stand (QC): 6 Roll Left to Right (QC): 6 Chair/Syp-sg-Hglgq Xfer(QC): 6 Car Transfer (QC): 6 Does the Patient Walk: Yes Gait (FIM): 6 Gait distance (FIM): 3=150 ft Walk 10 feet (QC): 6 Walk 10ft-Uneven Surface(QC): 6 Walk 50ft with 2 Turns (QC): 6 Walk 150 ft (QC): 6 Gait Assistive Device: FWW Does the Pt use WC or Scooter?: No Stairs (FIM): 5 # of Steps: 4 1 Step (curb) (QC): 6 4 Steps (QC): 6 12 Steps (QC): 88 Picking up an Object (QC): 88 PT Plan Treatment/Plan Treatment Plan: Continue Plan of Care Treatment Plan: Bed Mobility, Education, Functional Activity Kelechi, Functional Strength, Group Therapy, Gait, Safety, Therapeutic Exercise, Transfers Treatment Duration: Dec 26, 2018 Frequency: At least 5 of 7 days/Wk (IRF) Estimated Hrs Per Day: 1.5 hours per day Patient and/or Family Agrees t: Yes Safety Risks/Education Patient Education: Gait Training, Transfer Techniques, Correct Positioning, S afety Issues Teaching Recipient: Patient Teaching Methods: Demonstration, Discussion Response to Teaching: Verbalize Understanding, Return Demonstration, Reinforcement Needed Time/GCodes Time In: 1300 Time Out: 1330 Total Billed Treatment Time: 30 Total Billed Treatment 1 visit, EX x15 min, GT x10 min, FA x5 min EDD VELAZQUEZ PTA Dec 09, 2018 15:15
[2018-12-09] MEDS: amLODIPine 5 MG (NORVASC) TAB PO SCH (17:10)
[2018-12-09 17:13] VITALS: BP 144/71
--- NOTE | 2018-12-09 19:21 | NUR ---
bedside report received from ANNIE JOHNS, assume care of pt
[2018-12-09] MEDS: ALPRAZolam 1 MG (XANAX) TAB PO SCH (21:09)
--- NOTE | 2018-12-09 21:18 | NUR ---
assessments & interventions completed, see assessments & intervention fsbs 299 NovoLog 11 units & scheduled Levemir 25 units given
--- NOTE | 2018-12-10 02:05 | NUR ---
fsbs 158
[2018-12-10 05:25] VITALS: BP 154/73
[2018-12-10] MEDS: inSUlin ASPART (NovoLOG) 1 UNIT/0.01 ML (CHARGE PER UNIT) SC SCH ×4 (06:30→21:55)
[2018-12-10] MEDS: metFORMIN XR 500 MG (GLUCOPHAGE XR) TAB PO SCH ×2 (06:30→16:45)
[2018-12-10] MEDS: GLIMEPIRIDE 4 MG (AMARYL) TAB PO SCH ×2 (06:30→16:45)
--- NOTE | 2018-12-10 07:33 | NUR ---
bedside report given to MAGDALENE JOHNS
[2018-12-10] MEDS: PANTOPRAZOLE 40 MG (PROTONIX) TAB PO SCH (08:42)
[2018-12-10] MEDS: GABAPENTIN 600 MG (NEURONTIN) TAB PO SCH ×3 (08:42→21:56)
[2018-12-10] MEDS: buPROPion SR 150 MG (WELLBUTRIN SR) TAB PO SCH ×2 (08:42→21:55)
[2018-12-10] MEDS: ALPRAZolam 0.5 MG (XANAX) TAB PO SCH (08:42)
[2018-12-10] MEDS: QUEtiapine 25 MG (SEROquel) TAB IMMEDIATE RELEASE PO SCH ×2 (08:42→21:55)
[2018-12-10] MEDS: GEMFIBROZIL 600 MG (LOPID) TAB PO SCH ×2 (08:42→21:56)
[2018-12-10] MEDS: ASPIRIN E.C. 81 MG (ECOTRIN) TAB PO SCH (08:42)
--- NOTE | 2018-12-10 08:42 | PM&R Progress Note ---
Subjective HPI/CC On Admission Date Seen by Provider: Dec 10, 2018 Time Seen by Provider: 08:45 CC: Frequent Falls Ms. Chou is a 68 y/o WF with PMH of HTN, DM, hyperlipidemia and ALTON presents with a chief complaint of frequent falls. 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 She states she starts to get dizzy and her legs get weak causing her to fall. She denies loss of consciousness, but describes the room spinning prior to each episode. She presented to the ED after her last fall when she was found by her son and was unable to get her up. She denies urinary urgency or burning, fever, chills. She is occasionally incontinent of stool, and has been for the previous few months. Prior to the last week, she was independent with all ADL's and without falls. She has been to the ED for falls over the last couple of weeks for multiple falls. She was counselled to use a FWW, but has not been compliant. From social context, she lives alone in a 2nd floor, carpeted apartment. She has no stairs to navigate as there is an elevator to the second floor. Her PCP is Dr. Benavides. She has multiple prescriptions which could be exacerbating her symptoms. She has, in previous admissions, been open to the idea of assisted living. Social hx: denies alcohol use, smokes 1ppd for many years, and denies etoh usage PSH: B/l carotid endarterectomy, bso/edith Note per Balbir Richardson RUST CC: Multiple falls with debility HPI: This is a 68yoWF who previously lived at home who was brought to the ER on Saturday night after multiple falls requiring multiple ER visits last week who suffered facial injuries and ecchymosis B/L in the most recent fall when the family found her down who has a PMH of severe neuropathy and diabetic complications along with peripheral vascular disease s/p B/L CEA managed by Dr. Springer and Dr. Benavides who presents to inpatient rehab in need of intensive t herapy to prevent falls which could harm her further and has reluctantly agreed to go to assisted living because she really is unsafe to return home and live independently. At this current time pt feels well, her bowels are moving, urinating well, acute renal failure with creatinine of 1.6 improved with IV fluids given over night on Saturday night so I heplocked those yesterday and the rest of her labs look really good. At this current time pt is ready for rehab and is a poor historian with her other medical issues so will try to grab details from PCP office and pharmacy. Subjective/Events-last exam Levemir of 24 units twice daily host started last night Sugar is 227 Bed alarm placed but she hasn't tried to get up and out of bed Dr. Hughes will be consulted on the left hand due to the deep skin tear and she is an insulin dependent diabetic Will discuss on Saturday Will evaluate placement at assisted living versus skilled since returning home is not an option Meclizine will be restarted at her request but minimize dose Conferred with RN. Reviewed therapy notes. Checked meds and labs. Review of Systems General: Fatigue, Other (dizziness) Objective Exam Vital Signs Vital Signs Date Time Temp Pulse Resp B/P (MAP) Pulse Ox O2 Delivery O2 Flow Rate FiO2 12/10/18 17:28 98.3 98 18 149/74 (99) 96 Room Air Capillary Refill : General Appearance: No Apparent Distress, WD/WN, Chronically ill, Obese HEENT: PERRL/EOMI, Normal ENT Inspection, Pharynx Normal, Moist Mucous Membranes, Other (facial ecchymosis) Neck: Full Range of Motion, Normal Inspection, Non Tender, Supple Respiratory: Chest Non Tender, Lungs Clear, Normal Breath Sounds, No Accessory Muscle Use, No Respiratory Distress Cardiovascular: Regular Rate, Rhythm, No Edema, No Gallop, No JVD, No Murmur Gastrointestinal: Normal Bowel Sounds, No Organomegaly, No Pulsatile Mass, Non Tender, Soft Back: Normal Inspection, No CVA Tenderness, No Vertebral Tenderness Extremity: Normal Capillary Refill, Normal Inspection, Normal Range of Motion, Non Tender, No Calf Tenderness, No Pedal Edema Neurologic/Psychiatric: Alert, Oriented x3, No Motor/Sensory Deficits, Normal Mood/Affect Skin: Normal Color, Warm/Dry Lymphatic: No Adenopathy Results/Procedures Lab Patient resulted labs reviewed. FIM Transfers Therapy Code Descriptions/Definitions Functional [place] Measure: 0=Not Assessed/NA 4=Minimal Assistance 1=Total Assistance 5=Supervision or Setup 2=Maximal Assistance 6=Modified [place] 3=Moderate Assistance 7=Complete [place] Therapy Quality Codes: 6 Independent with activity with or without an assistive device 5 Patient requires set up or clean up by helper. Patient completes activity by themselves 4 Supervision or touching assist (CGA). [place] provide cues , steadying campos t 3 The helper provides less than half the effort to complete the activity 2 The helper provides more than half the effort to complete the activity 1 Dependent. The helper does all the effort to complete an activity 7 Patient refused to complete or attempt activity 9 The patient did not perform the activity before the current illness or injury 88 Not attempted due to Medical conditions or safety concerns Transfers (B, C, W/C) (FIM): 4 Scootin Rollin Roll Left to Right (QC): 4 Supine to/from Sit: 5 (seval unsuccessful attempts, pt then given instruction on technique rolling to side, legs off bed and pushing up with arms, able to then perform supine to sit upon 1st attempt 3 more times. Sit to supine SBA) Sit to/from Stand: 4 (CGA provided for safety) Sit to Lying (QC): 3 Sit to Stand (QC): 3 Chair/Rul-tj-Eeojh Xfer(QC): 4 Car Transfer (QC): 3 (assist with both legs to get into the car.) Gait Training Does the Patient Walk?: Yes Gait (FIM): 4 Distance (FIM): 3=150 ft Distance: 240, 135 Walk 10 feet (QC): 3 Walk 50 ft with 2 Turns(QC): 3 Walk 150 ft (QC): 88 Walking 10ft/uneven surface-QC: 3 Gait Level of Assist: 4 (LOB x2 episodes requiring min A to correct due to onset of dizziness) Gait Persons Needed: 1 Gait Assistive Device: FWW Wheelchair Training Does the Pt Use a Wheelchair?: No Stair Training Stairs (FIM): 1 #of Steps: 1 1 Step (curb) (QC): 3 4 Steps (QC): 88 Level of Assist: 3 (min assist to step and and to lower off.) Balance Picking up an Object (QC): 88 Mental Status/Objective Comprehension: 5 Expression: 5 Social Interaction: 7 Problem Solvin Memory: 5 ADL-Treatment Feedin (Pt able to open containers, open a bag of chips, and drink I.) Eating (QC): 6 Groomin Oral Hygiene (QC): 4 Bathin (Pt needed Min A to wash Buttocks. Pt able to rinse and dry self, CGA. Pt required use of FWW, grabbar, and hand held shower head.) Bathing Location: L Arm, R Arm, L Upper Leg, R Upper Leg, L Lower Leg (including foot), R Lower Leg (including foot), Chest, Abdomen, Perineal Area Shower/Bathe Self (QC): 3 Upper Extremity Dressin Upper Body Dressing (QC): 5 Lower Extremity Dressin (CGA) Lower Body Dressing (QC): 4 On/Off Footwear (QC): 4 Toiletin (CGA) Toileting Hygiene (QC): 4 Toilet/Commode Transfer: 4 (CGA) Toilet Transfer (QC): 4 Shower: 4 (Pt requires FWW, grabbar, shower bench, and CGA. ) Assessment/Plan Assessment and Plan Assess & Plan/Chief Complaint Assessment: Fall Facial trauma Neuropathy Chronic pain Anxiety CAD PVD HTN Dementia Chronic dizziness Plan: IRF protocol [place] at [place] Home meds Increase insulin Restart but minimize dose (1) Fall Status: Acute Qualifiers: Encounter type: subsequent encounter Qualified Codes: W19.XXXD - Unspecified fall, subsequent encounter (2) Physical deconditioning Status: Acute (3) Debility Status: Acute (4) Diabetes mellitus Status: Chronic Qualifiers: Diabetes mellitus type: type 2 Diabetes mellitus shelter insulin use: without railroad mechanic use Diabetes mellitus complication status: with other specified complication Qualified Codes: E11.69 - Type 2 diabetes mellitus with other specified complication (5) CAD (coronary artery disease) Status: Chronic Qualifiers: Coronary Disease-Associated Artery/Lesion type: [place] artery [place] vs. transplanted heart: [place] heart Associated angina: without angina Qualified Codes: I25.10 - Atherosclerotic heart disease of [place] coronary artery without angina pectoris (6) Hyperlipidemia Status: Chronic Qualifiers: Hyperlipidemia type: mixed hyperlipidemia Qualified Codes: E78.2 - Mixed hyperlipidemia (7) Acute renal insufficiency Status: Acute (8) Neuropathy Status: Chronic (9) PVD (peripheral vascular disease) Status: Chronic (10) Hypertension Status: Chronic Qualifiers: Hypertension type: essential hypertension Qualified Codes: I10 - Essential (primary) hypertension (11) Facial trauma Status: Acute Qualifiers: Encounter type: subsequent encounter Qualified Codes: S09.93XD - Unspecified injury of face, subsequent encounter (12) Renal failure (ARF), acute on chronic Status: Acute Qualifiers: Acute renal failure type: unspecified (13) Leukocytosis Status: Acute Qualifiers: Leukocytosis type: leukemoid reaction Qualified Codes: D72.823 - Leukemoid reaction (14) H/O carotid endarterectomy Status: Chronic GUADALUPE AUSTIN DO Dec 10, 2018 08:42
[2018-12-10] MEDS: MELOXICAM 7.5 MG (MOBIC) TABLET PO SCH (08:43)
[2018-12-10] MEDS: CALCIUM CARB + VIT D 600 MG (CALCARB + D) TAB PO SCH (08:57)
[2018-12-10] MEDS: SENNA W/DOCUSATE (SENOKOT S) TABLET PO SCH ×2 (09:00→21:57)
--- NOTE | 2018-12-10 09:05 | Physical Therapy Daily Note ---
PT Daily Note-Current Subjective Pt. agrees to Rx. States she has dizziness with every change of position. States she has taken Meclazine for years and hopes to get it started again here. Pt. does not c/o pain Pain Location: No Pain Reported Mental Status Patient Orientation: Normal For Age Transfers Therapy Code Descriptions/Definitions Functional [place] Measure: 0=Not Assessed/NA 4=Minimal Assistance 1=Total Assistance 5=Supervision or Setup 2=Maximal Assistance 6=Modified [place] 3=Moderate Assistance 7=Complete [place] Therapy Quality Codes: 6 Independent with activity with or without an assistive device 5 Patient requires set up or clean up by helper. Patient completes activity by themselves 4 Supervision or touching assist (CGA). [place] provide cues , steadying assist 3 The helper provides less than half the effort to complete the activity 2 The helper provides more than half the effort to complete the activity 1 Dependent. The helper does all the effort to complete an activity 7 Patient refused to complete or attempt activity 9 The patient did not perform the activity before the current illness or injury 88 Not attempted due to Medical conditions or safety concerns Transfers (B, C, W/C) (FIM): 4 Scootin Rollin Supine to/from Sit: 4 Sit to/from Stand: 5 pt. c/o dizziness with all position changes and asks this GUEST HISTORY CLERK to take her hand as she gets up sup tpo side to sit Gait Training Does the Patient Walk?: Yes Gait (FIM): 4 Distance (FIM): 3=150 ft (150x2) Gait Level of Assist: 4 Gait Persons Needed: 1 Gait Assistive Device: FWW Exercises Supine Ex: Bridging, Ankle pumps, Quad Set, Heel Slides, Short Arc Quads, Scooting, Straight leg raise, Hip abd/add Supine Reps: 12 Treatments rolling to side as well as sup to sit brings on pts dizziness, needs time to let it subside before continuing Assessment Current Status: Good Progress PT Short Term Goals Short Term Goals Time Frame: Dec 15, 2018 Transfers (B,C,W/C) (FIM): 5 Gait (FIM): 5 Distance (FIM): 3=150 ft PT Plunger Shovel Operator Goals Usp Goals PT Usp Goals Time Frame: Dec 26, 2018 Transfers (B,C,W/C) (FIM): 7 Sit to Lying (QC): 6 Lying-Sitting on Side/Bed(QC): 6 Sit to Stand (QC): 6 Rollin Roll Left to Right (QC): 6 Chair/Coo-ij-Rdbzn Xfer(QC): 6 Car Transfer (QC): 6 Does the Patient Walk: Yes Gait (FIM): 6 Gait distance (FIM): 3=150 ft Walk 10 feet (QC): 6 Walk 10ft-Uneven Surface(QC): 6 Walk 50ft with 2 Turns (QC): 6 Walk 150 ft (QC): 6 Gait Assistive Device: FWW Does the Pt use WC or Scooter?: No Stairs (FIM): 5 # of Steps: 4 1 Step (curb) (QC): 6 4 Steps (QC): 6 12 Steps (QC): 88 Picking up an Object (QC): 88 PT Plan Treatment/Plan Treatment Plan: Continue Plan of Care Treatment Plan: Bed Mobility, Education, Functional Activity Kelechi, Functional Strength, Group Therapy, Gait, Safety, Therapeutic Exercise, Transfers Treatment Duration: Dec 26, 2018 Frequency: At least 5 of 7 days/Wk (IRF) Estimated Hrs Per Day: 1.5 hours per day Patient and/or Family Agrees t: Yes Safety Risks/Education Patient Education: Gait Training, Transfer Techniques, Correct Positioning, Disease Process, Safety Issues Teaching Recipient: Patient Teaching Methods: Demonstration, Discussion Response to Teaching: Verbalize Understanding, Return Demonstration, Reinforcement Needed discussed making sure dizziness subsides before getting on feet or moving away from chair or bed. Nurse pursuing meclazine order Time/GCodes Time In: 830 Time Out: 900 Total Billed Treatment Time: 30 Total Billed Treatment 1,GT15m,EX15m CINTHIA BRO GUEST HISTORY CLERK Dec 10, 2018 09:05
[2018-12-10] MEDS ORDERED: MECLIZINE 25 MG (ANTIVERT) TAB PO PRN (09:15)
--- NOTE | 2018-12-10 10:22 | Progress Note - Hospitalist ---
[facility] 12/10/18 1022: Progress Note Ms. Chou continues to have bouts of vertigo Will restart modified home dose of Meclazine 12.5mg q12 prn 2/2 sedating effects no other acute concerns continue to attempt vestibular rehab during sessions VESTA ARANGO DO 12/10/18 2014: Supervisory-Addendum Brief Verification & Attestation Participated in pt care: history, MDM, physical Personally performed: exam, history, MDM, supervision of care Care discussed with: Medical Student Procedures: n/a Results interpretation: Verified all documentation Verification and Attestation of Medical Student E/M Service A medical student performed and documented this service in my presence. I reviewed and verified all information documented by the medical student and made modifications to such information, when appropriate. I personally performed the physical exam and medical decision making. Vesta Arango, Dec 10, 2018,20:14 [facility] Dec 10, 2018 10:22 VESTA ARANGO DO Dec 10, 2018 20:14
--- NOTE | 2018-12-10 11:02 | Occupational Ther Daily Note ---
OT Current Status-Daily Note Subjective Pt alert sitting in chair. Pt agrees to take shower. No c/o pain. Mental Status/Objective Patient Orientation: Person, Place, Time, Situation Therapy Code Descriptions/Definitions Functional [place] Measure: 0=Not Assessed/NA 4=Minimal Assistance 1=Total Assistance 5=Supervision or Setup 2=Maximal Assistance 6=Modified [place] 3=Moderate Assistance 7=Complete [place] ADL-Treatment Therapy Code Descriptions/Definitions Functional [place] Measure: 0=Not Assessed/NA 4=Minimal Assistance 1=Total Assistance 5=Supervision or Setup 2=Maximal Assistance 6=Modified [place] 3=Moderate Assistance 7=Complete [place] Therapy Quality Codes: 6 Independent with activity with or without an assistive device 5 Patient requires set up or clean up by helper. Patient completes activity by themselves 4 Supervision or touching assist (CGA). [place] provide cues , steadying assist 3 The helper provides less than half the effort to complete the activity 2 The helper provides more than half the effort to complete the activity 1 Dependent. The helper does all the effort to complete an activity 7 Patient refused to complete or attempt activity 9 The patient did not perform the activity before the current illness or injury 88 Not attempted due to Medical conditions or safety concerns Grooming (FIM): 4 (Pt required FWW. Ptable to brush hair and teeth, CGA for steadying. Pt sways back and forth. ) Bathing (FIM): 4 (Pt able to cleanse, rinse, dry self, CGA, steadying. ) Bathing Location: L Arm, R Arm, L Upper Leg, R Upper Leg, L Lower Leg (including foot), R Lower Leg (including foot), Chest, Abdomen, Buttocks, Perineal Area Upper Body (FIM): 5 (Pt able to don/doff bra and shirt, set up. ) Lower Body Dressing (FIM): 4 (Pt able to don/doff briefs and pants below knee. Pt required Min Assist to remove briefs, pants, and socks, CGA steadying. Pt able to don shoes, required assist to tie. ) Transfers (B, C, W/C) (FIM): 4 (Pt used FWW, CGA for steadying. ) Shower Transfer(FIM): 4 (Pt required FWW, grabbar, and shower bench. Pt needed 1 verbal cue to use grabbar.) Other Treatment Pt ambulated to therapy gym. Pt participated in arm bike exercise for duration 15 min 15 viveros to increase upper body strength for daily functional activity tasks. Pt ambulated back to room. Pt left in chair, call light and phone in reach, all needs met. Education OT Patient Education: Modified ADL techniques OT Short Term Goals Short Term Goals Transfers (B,C,W/C) (FIM): 5 1=Demonstrate adherence to instructed precautions during ADL tasks. 2=Patient will verbalize/demonstrate understanding of assistive devices/modifications for ADL. 3=Patient will improve strength/tolerance for activity to enable patient to perform ADL's. 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 Manager Goals [facility] Goals Time Frame: Dec 22, 2018 Eating (FIM): 6 Eating (QC): 6 Groomin Oral Hygiene (QC): 6 Bathing(FIM): 5 Shower/Bathe Self (QC): 4 Upper Body Dressing(FIM): 6 Upper Body Dressing (QC): 6 Lower Body Dressing(FIM): 6 Lower Body Dressing (QC): 6 On/Off Footwear (QC): 6 Toileting(FIM): 6 Toileting Hygiene (QC): 6 Transfers (B,C,W/C) (FIM): 6 Toilet/Commode Transfer(FIM): 6 Toilet/Commode Transfer (QC): 6 Shower Transfer(FIM): 5 Additional Goals: 1-Demonstrate ADL Tasks, 2-Verbalize Understanding, 3- ImproveStrength/Kelechi 1=Demonstrate adherence to instructed precautions during ADL tasks. 2=Patient will verbalize/demonstrate understanding of assistive device s/modifications for ADL. 3=Patient will improve strength/tolerance for activity to enable patient to perform ADL's. OT Education/Plan Problem List/Assessment Assessment: Decreased UE Strength, Impaired Self-Care Skills Discharge Recommendations Plan/Recommendations: Continue POC Treatment Plan/Plan of Care Patient would benefit from OT for education, treatment and training to promote independence in ADL's, mobility, safety and/or upper extremity function for ADL's. Plan of Care: ADL Retraining, Functional Mobility, Group Exercise/Act as Ind, UE Funct Exercise/Act Treatment Duration: Oct 21, 2018 Frequency: At least 5 of 7 days/Wk (IRF) Estimated Hrs Per Day: 1.5 hours per day Agreement: Yes Rehab Potential: Good Time/GCodes Start Time: 10:00 Stop Time: 11:00 Total Time Billed (hr/min): 60 Billed Treatment Time 1 visit-ADL 3 (45 min) EX 1 (15 min) JJ ALFARO Dec 10, 2018 11:02
--- NOTE | 2018-12-10 11:29 | Speech Therapy Daily Note ---
Speech Daily Progress Note Subjective Date Seen by Provider: Dec 10, 2018 Time Seen by Provider: 00:30 The patient was resting in her bed after OT this am. Objective The patient completed a series of problem solving scenarios with pictures "what's wrong with this picture?" at 80% with min to mod verbal cues. Assessment Assessment Current Status: Good Progress Treatment Plan Continue Plan of Care Communication Comprehension: 5 Expression: 5 Social Cognition Social Interaction: 7 Problem Solvin Memory: 5 Speech Short Term Goals Short Term Goals Short Term Goals 1) The patient will complete memory tasks related to her daily needs with 90% or greater. 2) The patient will complete problem solving tasks related to her daily needs with 90% or greater. 3) The patient will complete safety tasks related to her daily needs with 90% or greater. Speech Penitentiary Goals Penitentiary Goals The patient will improve cognitive-communication necessary for safety and daily living tasks with minimal assist. Speech-Plan Patient/Family Goals Patient/Family Goals: The patient plans on moving to assisted living post rehab. Treatment Plan Speech Therapy Treatment Plan: Continue Plan of Care The patient is progressing well with skilled therapy. Treatment Duration: Dec 17, 2018 Frequency: 5 times per week Estimated Hrs Per Day: .5 hour per day Rehab Potential: Good Barriers to Learning: Patient has cognitive deficits. Pt/Family Agrees to Plan: Yes Safety Risks/Education Teaching Recipient: Patient Teaching Methods: Demonstration, Discussion Response to Teaching: Verbalize Understanding, Return Demonstration Education Topics Provided: Continued safety within her living environment upon discharge. Time Speech Therapy Time In: 09:00 Speech Therapy Time Out: 09:30 Total Billed Time: 30 Billed Treatment Time 1, ANGY Dumont Dec 10, 2018 11:29
[2018-12-10] MEDS: MECLIZINE 25 MG (ANTIVERT) TAB PO PRN (12:16)
--- NOTE | 2018-12-10 13:08 | Physical Therapy Daily Note ---
PT Daily Note-Current Subjective Pt. just finished with lunch and agrees to Rx, Pain Location: No Pain Reported Mental Status Patient Orientation: Person, Place, Time, Situation Transfers Therapy Code Descriptions/Definitions Functional [place] Measure: 0=Not Assessed/NA 4=Minimal Assistance 1=Total Assistance 5=Supervision or Setup 2=Maximal Assistance 6=Modified [place] 3=Moderate Assistance 7=Complete [place] Therapy Quality Codes: 6 Independent with activity with or without an assistive device 5 Patient requires set up or clean up by helper. Patient completes activity by themselves 4 Supervision or touching assist (CGA). [place] provide cues , steadying assist 3 The helper provides less than half the effort to complete the activity 2 The helper provides more than half the effort to complete the activity 1 Dependent. The helper does all the effort to complete an activity 7 Patient refused to complete or attempt activity 9 The patient did not perform the activity before the current illness or injury 88 Not attempted due to Medical conditions or safety concerns sit to stand all SBA Gait Training Does the Patient Walk?: Yes Gait Assistive Device: FWW emphasis on gait stability and stance and alignment. Exercises Seated Therapy Exercises: Ankle pumps, Sit to stand, Long arc quads, Hip flexion, Hip abd/add Seated Reps: 12 NuStep Minutes: 10 NuStep Workload: 5 Treatments leg presses on Nustep x 15 Assessment Current Status: Good Progress walking further each trial, improved gait stability PT Short Term Goals Short Term Goals Time Frame: Dec 15, 2018 Transfers (B,C,W/C) (FIM): 5 Gait (FIM): 5 Distance (FIM): 3=150 ft PT Mcfp Goals Mcfp Goals PT [employer] Assistant Goals Time Frame: Dec 26, 2018 Transfers (B,C,W/C) (FIM): 7 Sit to Lying (QC): 6 Lying-Sitting on Side/Bed(QC): 6 Sit to Stand (QC): 6 Rollin Roll Left to Right (QC): 6 Chair/[id number]-Bupjf Xfer(QC): 6 Car Transfer (QC): 6 Does the Patient Walk: Yes Gait (FIM): 6 Gait distance (FIM): 3=150 ft Walk 10 feet (QC): 6 Walk 10ft-Uneven Surface(QC): 6 Walk 50ft with 2 Turns (QC): 6 Walk 150 ft (QC): 6 Gait Assistive Device: FWW Does the Pt use WC or Scooter?: No Stairs (FIM): 5 # of Steps: 4 1 Step (curb) (QC): 6 4 Steps (QC): 6 12 Steps (QC): 88 Picking up an Object (QC): 88 PT Plan Treatment/Plan Treatment Plan: Continue Plan of Care Treatment Plan: Bed Mobility, Education, Functional Activity Kelechi, Functional Strength, Group Therapy, Gait, Safety, Therapeutic Exercise, Transfers Treatment Duration: Dec 26, 2018 Frequency: At least 5 of 7 days/Wk (IRF) Estimated Hrs Per Day: 1.5 hours per day Patient and/or Family Agrees t: Yes Safety Risks/Education Patient Education: Gait Training Time/GCodes Time In: 1230 Time Out: 1300 Total Billed Treatment Time: 30 Total Billed Treatment 1,GT10,EX20 CINTHIA BRO PNEUMATIC DEICER INSPECTOR Dec 10, 2018 13:08
--- NOTE | 2018-12-10 14:42 | Therapy Group Daily Note ---
Therapy Daily Group Note Patient Education Topic Other List Below (environmental safety education) Exercises LE Seated Exercise, UE Exercise Session Ratio (pt:therapist): 4:1 Goal of Session: Education on ARU Expectations, Home Safety Strategies Goal Met for this Session: Yes Pt Benefit of Group: Contributions to Others, F/U Use of Strategies @Home, Increased Functional Safety, Increased Functional Strength, Improved Cognition, Recognition of Peers, Socialization Other/Notes Pt ambulated to [facility] area for OT/PT group. Group consisted of introductions (name, place living, personal pet peeve), socialization, environmental sign Bingo, ARU expectations and UE/LE seated exercises. Pt introduced self appropriately and actively listened to peers. Pt acknowledged understanding of educational topics by giving personal story and own strategies. Pt was able to follow directions and complete UE/LE seated exercises without difficulty. After therapy, pt lying in bed with call light/phone in reach. All needs met in room. Start Time: 13:00 Stop Time: 14:00 Total Billed Treatment Time: 60 Total Billed Treatment 1-GRP JJ ALFARO Dec 10, 2018 14:42
[2018-12-10] MEDS: amLODIPine 5 MG (NORVASC) TAB PO SCH (16:45)
--- NOTE | 2018-12-10 16:45 | NUR ---
SOD STRIPPER met with patient to review team conference summary. Nursing reports addition of medication, meclizine has helped significantly with patient's dizziness. Therapy reports patient is contact-guard assist with most therapy activities; however, does require additional time to complete tasks. Team is recommended patient's progress be rediscussed on Saturday, 12/15, discharge date will be determined at that time. Patient is agreeable. Patient remains in agreement with option of assisted living at discharge, SOD STRIPPER inquired if family has provided the requested documents for Medicaid application. Patient states family is not provided documents at this time. SOD STRIPPER will follow up with family on Saturday, 12/12 at 10 a.m. during assisted living on-site evaluation. Patient is agreeable. SOD STRIPPER continue to follow.
[2018-12-10 17:28] VITALS: BP 149/74
--- NOTE | 2018-12-10 18:01 | Wound Care Assessment ---
Wound Care Assessment Date Seen by Provider: Dec 10, 2018 Time Seen by Provider: 17:45 Chief Complaint Skin tear R hand HPI The patient is a 68 year old female with skin in a skin tear of the R hand after a fall. There is no sign of infection. The skin is trimmed. Dressed with Xeroform Past Medical History: Admits Diabetes Type II, Admits Heart Disease (Hyp ertension.) Smoking Status: Former Smoker Recreational Drug Use: No Alcohol Use: Denies Use Review of Systems Pulmonary: No Dyspnea Cardiovascular: No: Chest Pain Exam Vital Signs Date Time Temp Pulse Resp B/P (MAP) Pulse Ox O2 Delivery O2 Flow Rate FiO2 12/10/18 17:28 98.3 98 18 149/74 (99) 96 Room Air Capillary Refill : General Appearance: no apparent distress Extremities: other (full thickness skinear of R hand wiht macerated necrotic flap, 1.1 x 0.9 x 0.3 cm.) Results Laboratory Tests 12/09/18 20:44: Glucometer 299H 12/10/18 02:09: Glucometer 158H 12/10/18 05:32: Glucometer 223H 12/10/18 10:53: Glucometer 222H 12/10/18 15:22: Glucometer 238H Assessment/Plan/Dx 1. Skin tear R hand. Plan: The skin is removed, dressed with Xeroform. KORTNEY HOLDER MD Dec 10, 2018 18:01
[2018-12-10] MEDS: ALPRAZolam 1 MG (XANAX) TAB PO SCH (21:55)
[2018-12-11] MEDS: inSUlin ASPART (NovoLOG) 1 UNIT/0.01 ML (CHARGE PER UNIT) SC SCH ×4 (05:59→20:53)
[2018-12-11] MEDS: GLIMEPIRIDE 4 MG (AMARYL) TAB PO SCH ×2 (05:59→16:52)
[2018-12-11] MEDS: metFORMIN XR 500 MG (GLUCOPHAGE XR) TAB PO SCH ×2 (05:59→16:52)
[2018-12-11] MEDS: MECLIZINE 25 MG (ANTIVERT) TAB PO PRN ×2 (06:08→19:23)
[2018-12-11 06:14] VITALS: BP 142/66
--- NOTE | 2018-12-11 08:28 | Progress Note - Hospitalist ---
[facility] 12/11/18 0828: Progress Note Ms. 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 I revie wed and verified all information documented by the medical student and made modifications to such information, when appropriate. I personally performed the physical exam and medical decision making. Vesta Arango, Dec 11, 2018,20:18 [facility] Dec 11, 2018 08:28 VESTA ARANGO DO Dec 11, 2018 20:18
[2018-12-11] MEDS: SENNA W/DOCUSATE (SENOKOT S) TABLET PO SCH ×2 (08:54→22:28)
[2018-12-11] MEDS: PANTOPRAZOLE 40 MG (PROTONIX) TAB PO SCH (09:02)
[2018-12-11] MEDS: GEMFIBROZIL 600 MG (LOPID) TAB PO SCH ×2 (09:02→20:58)
[2018-12-11] MEDS: GABAPENTIN 600 MG (NEURONTIN) TAB PO SCH ×3 (09:02→20:58)
[2018-12-11] MEDS: MELOXICAM 7.5 MG (MOBIC) TABLET PO SCH (09:02)
[2018-12-11] MEDS: QUEtiapine 25 MG (SEROquel) TAB IMMEDIATE RELEASE PO SCH ×2 (09:02→20:58)
[2018-12-11] MEDS: ALPRAZolam 0.5 MG (XANAX) TAB PO SCH (09:03)
[2018-12-11] MEDS: buPROPion SR 150 MG (WELLBUTRIN SR) TAB PO SCH ×2 (09:03→20:58)
[2018-12-11] MEDS: CALCIUM CARB + VIT D 600 MG (CALCARB + D) TAB PO SCH (09:03)
[2018-12-11] MEDS: ASPIRIN E.C. 81 MG (ECOTRIN) TAB PO SCH (09:03)
--- NOTE | 2018-12-11 09:19 | Individualized Plan of Care ---
Individualized Plan of Care Rehab Nursing IPOC Order Admission Date Dec 08, 2018 at 10:30 Current Orders Orders Admission Order(Inpt,Obs,Sdc) (12/08/18 10:49) Vital Signs: Per Unit Policy ( 08,16,00 (12/08/18 10:49) Pharmaceutical Physician-Inpt Rehab Con (12/08/18 10:49) Rehab Nursing Orders-Ipoc (12/08/18 10:49) Physical Therapy Rehab Orders (12/08/18 10:49) Occupational Therapy Rehab Ord (12/08/18 10:49) Speech Therapy Rehab Orders (12/08/18 10:49) Intake & Output 06,14,22 (12/08/18 10:49) Precautions (Aru) (12/08/18 10:49) Weekly Weight (Lbs) WEEK (12/08/18 10:49) Rehab-Intensity Of Therapy (12/08/18 10:49) Initiate Admission Nursing Pro .admission (12/08/18 10:49) Accucheck Achs ACHS (12/08/18 11:40) Cho 60g/M 3snack (16-1999 [place]) (12/08/18 Lunch) Insulin Aspart (Novolog) (Novolog (Charg (12/08/18 13:00) Alprazolam Tablet (Xanax Tablet) (12/09/18 09:00) Gabapentin Capsule/Tablet (Neurontin Cap (12/08/18 13:00) Metformin Xr Tablet (Glucophage Xr Table (12/08/18 17:00) Pantoprazole Tablet (Protonix Tablet) (12/09/18 09:00) (Nf) Alendronate Sodium (12/14/18 13:00) Amlodipine Tablet (Norvasc Tablet) (12/08/18 18:00) Aspirin Enteric Coated Tablet (Ecotrin T (12/09/18 09:00) Calcium Carbonate W/Vitamin D3 (Calcarb (12/09/18 09:00) Cefdinir Capsule (Omnicef Capsule) (12/08/18 21:00) Gemfibrozil Tablet (Lopid Tablet) (12/08/18 21:00) Glimepiride Tablet (Amaryl Tablet) (12/08/18 16:30) Insulin Determir (Per Unit) (Levemir (Pe (12/09/18 09:00) Meloxicam Tablet (Mobic Tablet) (12/09/18 09:00) Quetiapine Immediate Release (Seroquel I (12/08/18 21:00) Ambulate 08,12,20 (12/08/18 13:27) Sequential Compression Device (12/08/18 13:27) Insulin Aspart (Novolog) (Novolog (Charg (12/08/18 12:51) Alprazolam Tablet (Xanax Tablet) (12/08/18 21:00) Bupropion Sr 12 Hr Tablet (Wellbutrin Sr (12/08/18 21:00) Patient Visit (12/08/18 ) Pt Eval Moderate Complexity (12/08/18 ) Functional Activities, Ea 15 (12/08/18 ) Patient Visit (12/08/18 ) Speech Sound Lang Comp (12/08/18 ) Patient Visit (12/08/18 ) Gait Training, Ea 15 Min (12/08/18 ) Cbc With Automated Diff (12/09/18 06:00) Comprehensive Metabolic Panel (12/09/18 06:00) Acetaminophen Tablet (Tylenol Tablet) (12/08/18 21:30) Calcium Carbonate Chew Tablet (Antacid C (12/08/18 21:30) Diphenhydramine Tablet (Benadryl Tablet) (12/08/18 21:30) Docusate Sodium Capsule (Colace Capsule) (12/08/18 21:30) Loperamide Tablet (Imodium Tablet) (12/08/18 21:30) Melatonin Tablet (Melatonin Tablet) (12/08/18 21:30) Ondansetron Oral Dissolve Tab (Zofran (12/08/18 21:30) Senna S Tablet (Senokot S Tablet) (12/09/18 09:00) Guaifenesin/Codeine Syrup (Robitussin Ac (12/08/18 21:30) Patient Visit (12/09/18 ) Exercise Therap, Ea 15 Min (12/09/18 ) Gait Training, Ea 15 Min (12/09/18 ) Patient Visit (12/09/18 ) Treat. Speech/Lang/Voice (12/09/18 ) Patient Visit (12/09/18 ) Exercise Therap, Ea 15 Min (12/09/18 ) Gait Training, Ea 15 Min (12/09/18 ) Insulin Determir (Per Unit) (Levemir (Pe (12/09/18 20:58) Insulin Determir (Per Unit) (Levemir (Pe (12/10/18 09:00) Insulin Determir (Per Unit) (Levemir (Pe (12/10/18 08:31) Meclizine Tablet (Antivert Tablet) (12/10/18 09:15) Meclizine Tablet (Antivert Tablet) (12/10/18 09:15) Patient Visit (12/10/18 ) Gait Training, Ea 15 Min (12/10/18 ) Exercise Therap, Ea 15 Min (12/10/18 ) Patient Visit (12/10/18 ) Exercise Therap, Ea 15 Min (12/10/18 ) Gait Training, Ea 15 Min (12/10/18 ) Patient Visit (12/10/18 ) Patient Visit (12/10/18 ) Treat. Speech/Lang/Voice (12/10/18 ) Consult Wound Care Physician (12/10/18 16:50) Dressing Order (Intervention) DAILY PRN (12/10/18 17:51) Rehab Nursing Orders: Ongoing Assess. of Cognitive Status, Ongoing Assess. of Function Status, Bladder Management, Bladder Scan, Bladder Training, Bowel Management, Bowel Training, Disease Management & Educaiton, Fluid/Electrolyte/Nutrition Mgmt, Infection Prevention, Medication Management & Education, Management of Risks & Complications, Management of Skin Intergrity, Nutrition Management, Pain Management, Patient/Family Support, Safety Management Intensity of Therapy to be met Patient to be seen: Min.3h per day/5 of 7d PT IPOC Problem List: Activity Tolerance, Functional Strength, Safety, Balance, Gait, Transfer, Bed Mobility Treatment Plan: Continue Plan of Care Bed Mobility, Education, Functional Activity Kelechi, Functional Strength, Group Therapy, Gait, Safety, Therapeutic Exercise, Transfers Treatment Duration: Dec 26, 2018 Frequency: At least 5 of 7 days/Wk (IRF) Estimated Hrs Per Day: 1.5 hours per day OT IPOC Problems: Decreased UE Strength, Impaired Self-Care Skills OT Treatment, Training and Edu: Yes Plan of Care: ADL Retraining, Functional Mobility, Group Exercise/Act as Ind, UE Funct Exercise/Act Treatment Duration: Oct 21, 2018 Frequency: At least 5 of 7 days/Wk (IRF) Estimated Hrs Per Day: 1.5 hours per day [facility] Speech Therapy Treatment Plan: Continue Plan of Care Treatment Duration: Dec 17, 2018 Frequency: 5 times per week Estimated Hrs Per Day: .5 hour per day Pharmaceutical Physician/Case Mgmt Pharmaceutical Physician/Case Managemen: Discharge Planning Dietitian/Gripper Attacher Dietitian/Gripper Attacher to monitor nutritional status and make changes and/or recommendations as needed and work with speech pathology on dietary upgrades as the occur. Physician IPOC Medical Issues being managed closely and that require the 24 hour availability of a physician: Brief Synthesis of Preadmission Screen, Post-Admission Evaluation, and Therapy Evaluations: Medical Prognosis: Good Anticipated Length of Stay: & days GUADALUPE AUSTIN DO Dec 11, 2018 09:19
--- NOTE | 2018-12-11 09:19 | PM&R Progress Note ---
Subjective HPI/CC On Admission Date Seen by Provider: Dec 11, 2018 Time Seen by Provider: 09:15 CC: Frequent Falls Ms. Chou is a 68 y/o WF with PMH of HTN, DM, hyperlipidemia and ALTON presents with a chief complaint of frequent falls. 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 She states she starts to get dizzy and her legs get weak causing her to fall. She denies loss of consciousness, but describes the room spinning prior to each episode. She presented to the ED after her last fall when she was found by her son and was unable to get her up. She denies urinary urgency or burning, fever, chills. She is occasionally incontinent of stool, and has been for the previous few months. Prior to the last week, she was independent with all ADL's and without falls. She has been to the ED for falls over the last couple of weeks for multiple falls. She was counselled to use a FWW, but has not been compliant. From social context, she lives alone in a 2nd floor, carpeted apartment. She has no stairs to navigate as there is an elevator to the second floor. Her PCP is Dr. Benavides. She has multiple prescriptions which could be exacerbating her symptoms. She has, in previous admissions, been open to the idea of assisted living. Social hx: denies alcohol use, smokes 1ppd for many years, and denies etoh usage PSH: B/l carotid endarterectomy, bso/edith Note per Balbir Richardson [facility] CC: Multiple falls with debility HPI: This is a 68yoWF who previously lived at home who was brought to the ER on Saturday night after multiple falls requiring multiple ER visits last week who suffered facial injuries and ecchymosis B/L in the most recent fall when the family found her down who has a PMH of severe neuropathy and diabetic complications along with peripheral vascular disease s/p B/L CEA managed by Dr. Springer and Dr. Benavides who presents to inpatient rehab in need of intensive t herapy to prevent falls which could harm her further and has reluctantly agreed to go to assisted living because she really is unsafe to return home and live independently. At this current time pt feels well, her bowels are moving, urinating well, acute renal failure with creatinine of 1.6 improved with IV fluids given over night on Saturday night so I heplocked those yesterday and the rest of her labs look really good. At this current time pt is ready for rehab and is a poor historian with her other medical issues so will try to grab details from PCP office and pharmacy. Subjective/Events-last exam Cognition is definitely deficient. Gabapentin Benzodiazepines likely give rise to even further blunting. Dizzy with PT but that is chronic. BMs are normal. Blood sugar was 160 today so Levemir 25 units BID is helping tremendously. Conferred with RN. Reviewed therapy notes. Checked meds and labs. Review of Systems General: Fatigue Neurological: Weakness, Numbness, Incoordination, Confusion Objective Exam Vital Signs Vital Signs Date Time Temp Pulse Resp B/P (MAP) Pulse Ox O2 Delivery O2 Flow Rate FiO2 12/11/18 15:49 97.4 97 16 166/83 (110) 95 Room Air Capillary Refill : General Appearance: No Apparent Distress, WD/WN, Chronically ill, Obese HEENT: PERRL/EOMI, Normal ENT Inspection, Pharynx Normal, Moist Mucous Membranes, Other (facial ecchymosis) Neck: Full Range of Motion, Normal Inspection, Non Tender, Supple Respiratory: Chest Non Tender, Lungs Clear, Normal Breath Sounds, No Accessory Muscle Use, No Respiratory Distress Cardiovascular: Regular Rate, Rhythm, No Edema, No Gallop, No JVD, No Murmur Gastrointestinal: Normal Bowel Sounds, No Organomegaly, No Pulsatile Mass, Non Tender, Soft Back: Normal Inspection, No CVA Tenderness, No Vertebral Tenderness Extremity: Normal Capillary Refill, Normal Inspection, Normal Range of Motion, Non Tender, No Calf Tenderness, No Pedal Edema Neurologic/Psychiatric: Alert, Oriented x3, No Motor/Sensory Deficits, Normal Mood/Affect, Disoriented (subtle) Skin: Normal Color, Warm/Dry Lymphatic: No Adenopathy Results/Procedures Lab Patient resulted labs reviewed. FIM Transfers Therapy Code Descriptions/Definitions Functional [place] Measure: 0=Not Assessed/NA 4=Minimal Assistance 1=Total Assistance 5=Supervision or Setup 2=Maximal Assistance 6=Modified [place] 3=Moderate Assistance 7=Complete [place] Therapy Quality Codes: 6 Independent with activity with or without an assistive device 5 Patient requires set up or clean up by helper. Patient completes activity by themselves 4 Supervision or touching assist (CGA). [place] provide cues , steadying assist 3 The helper provides less than half the effort to complete the activity 2 The helper provides more than half the effort to complete the activity 1 Dependent. The helper does all the effort to complete an activity 7 Patient refused to complete or attempt activity 9 The patient did not perform the activity before the current illness or injury 88 Not attempted due to Medical conditions or safety concerns Transfers (B, C, W/C) (FIM): 4 (Pt used FWW, CGA for steadying. ) Scootin Rollin Roll Left to Right (QC): 4 Supine to/from Sit: 4 Sit to/from Stand: 5 Sit to Lying (QC): 3 Sit to Stand (QC): 3 Chair/Wkk-ke-Eiufl Xfer(QC): 4 Car Transfer (QC): 3 (assist with both legs to get into the car.) Gait Training Does the Patient Walk?: Yes Gait (FIM): 4 Distance (FIM): 3=150 ft (150x2) Distance: 240, 135 Walk 10 feet (QC): 3 Walk 50 ft with 2 Turns(QC): 3 Walk 150 ft (QC): 88 Walking 10ft/uneven surface-QC: 3 Gait Level of Assist: 4 Gait Persons Needed: 1 Gait Assistive Device: FWW Wheelchair Training Does the Pt Use a Wheelchair?: No Stair Training Stairs (FIM): 1 #of Steps: 1 1 Step (curb) (QC): 3 4 Steps (QC): 88 Level of Assist: 3 (min assist to step and and to lower off.) Balance Picking up an Object (QC): 88 Mental Status/Objective Comprehension: 5 Expression: 5 Social Interaction: 7 Problem Solvin Memory: 5 ADL-Treatment Feedin (Pt able to open containers, open a bag of chips, and drink I.) Eating (QC): 6 Groomin (Pt required FWW. Ptable to brush hair and teeth, CGA for steadying. Pt sways back and forth. ) Oral Hygiene (QC): 4 Bathin (Pt able to cleanse, rinse, dry self, CGA, steadying. ) Bathing Location: L Arm, R Arm, L Upper Leg, R Upper Leg, L Lower Leg (including foot), R Lower Leg (including foot), Chest, Abdomen, Buttocks, Perineal Area Shower/Bathe Self (QC): 3 Upper Extremity Dressin (Pt able to don/doff bra and shirt, set up. ) Upper Body Dressing (QC): 5 Lower Extremity Dressin (Pt able to don/doff briefs and pants below knee. Pt required Min Assist to remove briefs, pants, and socks, CGA steadying. Pt able to don shoes, required assist to tie. ) Lower Body Dressing (QC): 4 On/Off Footwear (QC): 4 Toiletin (CGA) Toileting Hygiene (QC): 4 Toilet/Commode Transfer: 4 (CGA) Toilet Transfer (QC): 4 Shower: 4 (Pt required FWW, grabbar, and shower bench. Pt needed 1 verbal cue to use grabbar.) Assessment/Plan Assessment and Plan Assess & Plan/Chief Complaint Assessment: Fall Facial trauma Neuropathy Chronic pain Anxiety CAD PVD HTN Dementia Chronic dizziness Plan: IRF protocol [place] at [place] versus [place] Home meds Increase insulin Restart but minimize dose (1) Fall Status: Acute Qualifiers: Encounter type: subsequent encounter Qualified Codes: W19.XXXD - Unspecified fall, subsequent encounter (2) Physical deconditioning Status: Acute (3) Debility Status: Acute (4) Diabetes mellitus Status: Chronic Qualifiers: Diabetes mellitus type: type 2 Diabetes mellitus termination clerk insulin use: without termination clerk use Diabetes mellitus complication status: with other specified complication Qualified Codes: E11.69 - Type 2 diabetes mellitus with other specified complication (5) CAD (coronary artery disease) Status: Chronic Qualifiers: Coronary Disease-Associated Artery/Lesion type: [place] artery [place] vs. transplanted heart: [place] heart Associated angina: without angina Qualified Codes: I25.10 - Atherosclerotic heart disease of [place] coronary artery without angina pectoris (6) Hyperlipidemia Status: Chronic Qualifiers: Hyperlipidemia type: mixed hyperlipidemia Qualified Codes: E78.2 - Mixed hyperlipidemia (7) Acute renal insufficiency Status: Acute (8) Neuropathy Status: Chronic (9) PVD (peripheral vascular disease) Status: Chronic (10) Hypertension Status: Chronic Qualifiers: Hypertension type: essential hypertension Qualified Codes: I10 - Essential (primary) hypertension (11) Facial trauma Status: Acute Qualifiers: Encounter type: subsequent encounter Qualified Codes: S09.93XD - Unspecified injury of face, subsequent encounter (12) Renal failure (ARF), acute on chronic Status: Acute Qualifiers: Acute renal failure type: unspecified (13) Leukocytosis Status: Acute Qualifiers: Leukocytosis type: leukemoid reaction Qualified Codes: D72.823 - Leukemoid reaction (14) H/O carotid endarterectomy Status: Chronic GUADALUPE AUSTIN DO Dec 11, 2018 09:19
--- NOTE | 2018-12-11 11:05 | Occupational Ther Daily Note ---
OT Current Status-Daily Note Subjective Pt seated EOB at start of session, agreed to OT tx focusing on UE exercise/functional activity in the gym. Pt did not report any pain Mental Status/Objective Patient Orientation: Normal For Age Therapy Code Descriptions/Definitions Functional [place] Measure: 0=Not Assessed/NA 4=Minimal Assistance 1=Total Assistance 5=Supervision or Setup 2=Maximal Assistance 6=Modified [place] 3=Moderate Assistance 7=Complete [place] ADL-Treatment Therapy Code Descriptions/Definitions Functional [place] Measure: 0=Not Assessed/NA 4=Minimal Assistance 1=Total Assistance 5=Supervision or Setup 2=Maximal Assistance 6=Modified [place] 3=Moderate Assistance 7=Complete [place] Therapy Quality Codes: 6 Independent with activity with or without an assistive device 5 Patient requires set up or clean up by helper. Patient completes activity by themselves 4 Supervision or touching assist (CGA). [place] provide cues , steadying campos t 3 The helper provides less than half the effort to complete the activity 2 The helper provides more than half the effort to complete the activity 1 Dependent. The helper does all the effort to complete an activity 7 Patient refused to complete or attempt activity 9 The patient did not perform the activity before the current illness or injury 88 Not attempted due to Medical conditions or safety concerns Grooming (FIM): 5 (SBA standing at sink. pt brushed teeth/hair and washed hands.) Oral Hygiene (QC): 4 Transfers (B, C, W/C) (FIM): 5 (pt able to complete sit to/from transfers with mod I-SBA from chair. SBA at end of session secondary to fatigue.) Other Treatment Pt ambulated to gym using RW. In order to increase UE strength and endurance to increase independence in functional activities and ADLs, pt completed the following: Graded clothespins (ranging 1-5lb), removed/placed 17 clothes pins alternating R/L hand in 3 mins. Pt completed arm bike X15 min, mod resistance. In order to increase standing tolerance for ADLs and functional mobility, pt stood and placed/removed X100 pegs in pegboard, alternating R/L hand, pt required 3 rest breaks throughout standing activity, completing in 14 mins, 30 secs. Pt ambulated to her room using RW where she stood at sink to complete grooming tasks. Pt transferred to recliner. Post OT session, pt seated in recliner, call light in reach and needs met. Education OT Patient Education: Correct positioning, Energy conservation, Exercise program, Modified ADL techniques, Progress toward Goal/Update tx plan, Purpose of tx/functional activities, Transfer techniques Teaching Recipient: Patient Teaching Methods: Demonstration, Discussion Response to Teaching: Verbalize Understanding, Return Demonstration OT Short Term Goals Short Term Goals Transfers (B,C,W/C) (FIM): 5 1=Demonstrate adherence to instructed precautions during ADL tasks. 2=Patient will verbalize/demonstrate understanding of assistive devices/modifications for ADL. 3=Patient will improve strength/tolerance for activity to enable patient to perform ADL's. OT Manager Testing Goals Halfway Goals Time Frame: Dec 22, 2018 Eating (FIM): 6 Eating (QC): 6 Groomin Oral Hygiene (QC): 6 Bathing(FIM): 5 Shower/Bathe Self (QC): 4 Upper Body Dressing(FIM): 6 Upper Body Dressing (QC): 6 Lower Body Dressing(FIM): 6 Lower Body Dressing (QC): 6 On/Off Footwear (QC): 6 Toileting(FIM): 6 Toileting Hygiene (QC): 6 Transfers (B,C,W/C) (FIM): 6 Toilet/Commode Transfer(FIM): 6 Toilet/Commode Transfer (QC): 6 Shower Transfer(FIM): 5 Additional Goals: 1-Demonstrate ADL Tasks, 2-Verbalize Understanding, 3-ImproveStrength/[place] 1=Demonstrate adherence to instructed precautions during ADL tasks. 2=Patient will verbalize/demonstrate understanding of assistive devices/modifications for ADL. 3=Patient will improve strength/tolerance for activity to enable patient to perform ADL's. OT Education/Plan Problem List/Assessment Assessment: Decreased Activ Tolerance, Decreased UE Strength, Impaired Funct Balance, Impaired I ADL's, Impaired Self-Care Skills Discharge Recommendations Plan/Recommendations: Continue POC Treatment Plan/Plan of Care Treatment,Training & Education: Yes Patient would benefit from OT for education, treatment and training to promote independence in ADL's, mobility, safety and/or upper extremity function for ADL's. Plan of Care: ADL Retraining, Functional Mobility, Group Exercise/Act as Ind, UE Funct Exercise/Act Treatment Duration: Oct 21, 2018 Frequency: At least 5 of 7 days/Wk (IRF) Estimated Hrs Per Day: 1.5 hours per day Agreement: Yes Rehab Potential: Good Time/GCodes Start Time: 09:00 Stop Time: 10:15 Total Time Billed (hr/min): 75 Billed Treatment Time 1, EX 1 X15 min, FA 3 X45 min, ADL 1 X15 min LIZETTE GONZALEZ OT Dec 11, 2018 11:05
--- NOTE | 2018-12-11 11:55 | Physical Therapy Daily Note ---
PT Daily Note-Current Subjective Pt sitting in recliner upon arrival. Pt agrees to PT. Pain Location: No Pain Reported Mental Status Patient Orientation: Person, Place, Situation Transfers Therapy Code Descriptions/Definitions Functional [place] Measure: 0=Not Assessed/NA 4=Minimal Assistance 1=Total Assistance 5=Supervision or Setup 2=Maximal Assistance 6=Modified [place] 3=Moderate Assistance 7=Complete [place] Therapy Quality Codes: 6 Independent with activity with or without an assistive device 5 Patient requires set up or clean up by helper. Patient completes activity by themselves 4 Supervision or touching assist (CGA). [place] provide cues , steadying assist 3 The helper provides less than half the effort to complete the activity 2 The helper provides more than half the effort to complete the activity 1 Dependent. The helper does all the effort to complete an activity 7 Patient refused to complete or attempt activity 9 The patient did not perform the activity before the current illness or injury 88 Not attempted due to Medical conditions or safety concerns Scootin Sit to/from Stand: 5 Sit to Stand (QC): 5 Weight Bearing Full Weight Bearing Full Weight Bearing Gait Training Does the Patient Walk?: Yes Gait (FIM): 4 Distance (FIM): 3=150 ft Distance: 150' Walk 10 feet (QC): 4 Walk 50 ft with 2 Turns(QC): 4 Walk 150 ft (QC): 4 Gait Level of Assist: 4 Gait Persons Needed: 1 Gait Assistive Device: FWW Pt walks with slow marcela, flexed posture & needs VC to stay w/in FWW. Exercises Seated Therapy Exercises: Ankle pumps, Long arc quads, Hip flexion, Kicking activity, Hamstring Curls, Hip abd/add Seated Reps: 20 NuStep Minutes: 10 NuStep Workload: 5 Treatments Pt transfers from chair to standing using FWW. Pt ambulates in hallway using FWW. Pt uses NuStep for 10m at WL 5 then takes short RB before completing Seated EOB EX. Pt ambulates in hallway before returning to room to rest at EOB and order lunch. Pt has all needs met, call light next to pt. Assessment Current Status: Good Progress Pt fatigues easy and still struggles with balance at times. Pt still dizzy with transfers from Supine to Sitting. PT Short Term Goals Short Term Goals Time Frame: Dec 15, 2018 Transfers (B,C,W/C) (FIM): 5 Gait (FIM): 5 Distance (FIM): 3=150 ft PT Radiator Specialist Goals Radiator Specialist Goals PT Radiator Specialist Goals Time Frame: Dec 26, 2018 Transfers (B,C,W/C) (FIM): 7 Sit to Lying (QC): 6 Lying-Sitting on Side/Bed(QC): 6 Sit to Stand (QC): 6 Rollin Roll Left to Right (QC): 6 Chair/Dih-vj-Ojhha Xfer(QC): 6 Car Transfer (QC): 6 Does the Patient Walk: Yes Gait (FIM): 6 Gait distance (FIM): 3=150 ft Walk 10 feet (QC): 6 Walk 10ft-Uneven Surface(QC): 6 Walk 50ft with 2 Turns (QC): 6 Walk 150 ft (QC): 6 Gait Assistive Device: FWW Does the Pt use WC or Scooter?: No Stairs (FIM): 5 # of Steps: 4 1 Step (curb) (QC): 6 4 Steps (QC): 6 12 Steps (QC): 88 Picking up an Object (QC): 88 PT Plan Problem List Problem List: Activity Tolerance, Functional Strength, Safety, Balance, Gait, Transfer Treatment/Plan Treatment Plan: Continue Plan of Care Treatment Plan: Bed Mobility, Education, Functional Activity [place], Functional Strength, Group Therapy, Gait, Safety, Therapeutic Exercise, Transfers Treatment Duration: Dec 26, 2018 Frequency: At least 5 of 7 days/Wk (IRF) Estimated Hrs Per Day: 1.5 hours per day Patient and/or Family Agrees t: Yes Safety Risks/Education Patient Education: Gait Training, Transfer Techniques, Correct Positioning, S afety Issues Teaching Recipient: Patient Teaching Methods: Discussion Response to Teaching: Verbalize Understanding Time/GCodes Time In: 1100 Time Out: 1145 Total Billed Treatment Time: 45 Total Billed Treatment 1, GT (15m) & EX x2 (30m) SUNNY LUGO KENNEL AIDE Dec 11, 2018 11:55
--- NOTE | 2018-12-11 13:41 | Speech Therapy Daily Note ---
Speech Daily Progress Note Subjective Date Seen by Provider: Dec 11, 2018 Time Seen by Provider: 00:30 The patient was resting in her bed when I entered her room. Her son was present at the initial part of the session. Objective The patient completed a series of safety awareness scenarios with pictures at 85% with min verbal cues. Assessment Assessment Current Status: Good Progress Treatment Plan Continue Plan of Care Communication Comprehension: 5 Expression: 5 Social Cognition Social Interaction: 7 Problem Solvin Memory: 5 Speech Short Term Goals Short Term Goals Short Term Goals 1) The patient will complete memory tasks related to her daily needs with 90% or greater. 2) The patient will complete problem solving tasks related to her daily needs with 90% or greater. 3) The patient will complete safety tasks related to her daily needs with 90% or greater. Speech Client Experience Consultant Goals Client Experience Consultant Goals The patient will improve cognitive-communication necessary for safety and daily living tasks with minimal assist. Speech-Plan Patient/Family Goals Patient/Family Goals: The patient plans on moving to an [facility] upon discharge from rehab. Treatment Plan Speech Therapy Treatment Plan: Continue Plan of Care The patient is making good progress with ST goals. Treatment Duration: Dec 17, 2018 Frequency: 5 times per week Estimated Hrs Per Day: .5 hour per day Rehab Potential: Good Barriers to Learning: Patient has mild cognitive deficits. Pt/Family Agrees to Plan: Yes Safety Risks/Education Teaching Recipient: Patient, Family Teaching Methods: Demonstration, Discussion Response to Teaching: Verbalize Understanding, Return Demonstration Education Topics Provided: Safety within her living environment Time Speech Therapy Time In: 13:00 Speech Therapy Time Out: 13:30 Total Billed Time: 30 Billed Treatment Time 1, ANGY Dumont Dec 11, 2018 13:40
[2018-12-11 15:49] VITALS: BP 166/83
--- NOTE | 2018-12-11 15:59 | Physical Therapy Daily Note ---
PT Daily Note-Current Subjective Pt laying Supine in bed upon arrival. Pt agrees to PT. Pain Location: No Pain Reported Mental Status Patient Orientation: Person, Place Transfers Therapy Code Descriptions/Definitions Functional [place] Measure: 0=Not Assessed/NA 4=Minimal Assistance 1=Total Assistance 5=Supervision or Setup 2=Maximal Assistance 6=Modified [place] 3=Moderate Assistance 7=Complete [place] Therapy Quality Codes: 6 Independent with activity with or without an assistive device 5 Patient requires set up or clean up by helper. Patient completes activity by themselves 4 Supervision or touching assist (CGA). [place] provide cues , steadying assist 3 The helper provides less than half the effort to complete the activity 2 The helper provides more than half the effort to complete the activity 1 Dependent. The helper does all the effort to complete an activity 7 Patient refused to complete or attempt activity 9 The patient did not perform the activity before the current illness or injury 88 Not attempted due to Medical conditions or safety concerns Weight Bearing Full Weight Bearing Full Weight Bearing Treatments Pt awakens as PICK UP DRIVER enters room. Pt sits up in bed. Pt and PICK UP DRIVER discuss pt's progress, what can help with balance, options for after D/C as [facility] will visit tomorrow. Pt resting at end of tx with all needs met, call light in hand. Assessment Current Status: Good Progress Pt is a little nervous about D/C options and would like to go home but safely. PT Short Term Goals Short Term Goals Time Frame: Dec 15, 2018 Transfers (B,C,W/C) (FIM): 5 Gait (FIM): 5 Distance (FIM): 3=150 ft PT Alf Goals Alf Goals PT Alf Goals Time Frame: Dec 26, 2018 Transfers (B,C,W/C) (FIM): 7 Sit to Lying (QC): 6 Lying-Sitting on Side/Bed(QC): 6 Sit to Stand (QC): 6 Rollin Roll Left to Right (QC): 6 Chair/Tnd-um-Mzxlv Xfer(QC): 6 Car Transfer (QC): 6 Does the Patient Walk: Yes Gait (FIM): 6 Gait distance (FIM): 3=150 ft Walk 10 feet (QC): 6 Walk 10ft-Uneven Surface(QC): 6 Walk 50ft with 2 Turns (QC): 6 Walk 150 ft (QC): 6 Gait Assistive Device: FWW Does the Pt use WC or Scooter?: No Stairs (FIM): 5 # of Steps: 4 1 Step (curb) (QC): 6 4 Steps (QC): 6 12 Steps (QC): 88 Picking up an Object (QC): 88 PT Plan Problem List Problem List: Activity Tolerance, Functional Strength, Safety, Balance Treatment/Plan Treatment Plan: Continue Plan of Care Treatment Plan: Bed Mobility, Education, Functional Activity [place], Functional Strength, Group Therapy, Gait, Safety, Therapeutic Exercise, Transfers Treatment Duration: Dec 26, 2018 Frequency: At least 5 of 7 days/Wk (IRF) Estimated Hrs Per Day: 1.5 hours per day Patient and/or Family Agrees t: Yes Safety Risks/Education Patient Education: Gait Training, Transfer Techniques, Correct Positioning, Disease Process, Safety Issues Teaching Recipient: Patient Teaching Methods: Discussion Response to Teaching: Verbalize Understanding Time/GCodes Time In: 1400 Time Out: 1430 Total Billed Treatment Time: 30 Total Billed Treatment 1, FA x2 (30m) SUNNY LUGO PICK UP DRIVER Dec 11, 2018 15:59
[2018-12-11] MEDS: amLODIPine 5 MG (NORVASC) TAB PO SCH (17:45)
[2018-12-11] MEDS: ALPRAZolam 1 MG (XANAX) TAB PO SCH (19:23)
[2018-12-12 05:00] VITALS: BP 149/81
[2018-12-12] MEDS: GLIMEPIRIDE 4 MG (AMARYL) TAB PO SCH ×2 (05:54→17:47)
[2018-12-12] MEDS: metFORMIN XR 500 MG (GLUCOPHAGE XR) TAB PO SCH ×2 (05:54→17:47)
[2018-12-12] MEDS: inSUlin ASPART (NovoLOG) 1 UNIT/0.01 ML (CHARGE PER UNIT) SC SCH ×4 (05:58→21:45)
[2018-12-12 06:21] LABS: BASOPHILS % (AUTO) 0 % (0-10); EOSINOPHILS # (AUTO) 0.2 10^3/uL (0.0-0.3); EOSINOPHILS % (AUTO) 2 % (0-10); HEMATOCRIT 36 % (35-52); HEMOGLOBIN 12.7 G/DL (11.5-16.0); LYMPHOCYTES # (AUTO) 1.5 X 10^3 (1.0-4.0); LYMPHOCYTES % (AUTO) 20 % (12-44); MEAN CORPUSCULAR HEMOGLOBIN 30 PG (25-34); MEAN CORPUSCULAR HGB CONC 35 G/DL (32-36); MEAN CORPUSCULAR VOLUME 86 FL (80-99); MEAN PLATELET VOLUME 9.2 FL (7.4-10.4); MONOCYTES # (AUTO) 0.6 X 10^3 (0.0-1.0); MONOCYTES % (AUTO) 8 % (0-12); NEUTROPHILS # (AUTO) 5.4 X 10^3 (1.8-7.8); NEUTROPHILS % (AUTO) 70 % (42-75); PLATELET COUNT 163 10^3/uL (130-400); RED CELL DISTRIBUTION WIDTH 15.1 % (10.0-14.5); WHITE BLOOD COUNT 7.7 10^3/uL (4.3-11.0)
[2018-12-12 06:35] LABS: BILIRUBIN,TOTAL 0.5 MG/DL (0.1-1.0); CALCIUM 9.5 MG/DL (8.5-10.1); CREATININE SERUM 1.14 MG/DL (0.60-1.30); POTASSIUM 4.4 MMOL/L (3.6-5.0); TOTAL PROTEIN 6.5 GM/DL (6.4-8.2)
[2018-12-12 06:36] LABS: ALBUMIN 3.9 GM/DL (3.2-4.5)
--- NOTE | 2018-12-12 08:35 | Occupational Ther Daily Note ---
OT Current Status-Daily Note Subjective Pt laying in bed at start of OT session, agreeable to OT session focusing on ADLs. Pt denied pain this AM. Mental Status/Objective Patient Orientation: Normal For Age Therapy Code Descriptions/Definitions Functional [place] Measure: 0=Not Assessed/NA 4=Minimal Assistance 1=Total Assistance 5=Supervision or Setup 2=Maximal Assistance 6=Modified [place] 3=Moderate Assistance 7=Complete [place] ADL-Treatment Therapy Code Descriptions/Definitions Functional [place] Measure: 0=Not Assessed/NA 4=Minimal Assistance 1=Total Assistance 5=Supervision or Setup 2=Maximal Assistance 6=Modified [place] 3=Moderate Assistance 7=Complete [place] Therapy Quality Codes: 6 Independent with activity with or without an assistive device 5 Patient requires set up or clean up by helper. Patient completes activity by themselves 4 Supervision or touching assist (CGA). [place] provide cues , steadying assist 3 The helper provides less than half the effort to complete the activity 2 The helper provides more than half the effort to complete the activity 1 Dependent. The helper does all the effort to complete an activity 7 Patient refused to complete or attempt activity 9 The patient did not perform the activity before the current illness or injury 88 Not attempted due to Medical conditions or safety concerns Grooming (FIM): 4 (CGA standing at sink with FWW, pt swayed to side X1 stating ) Oral Hygiene (QC): 4 Bathing (FIM): 4 (CGA during stand at GB. Pt able to wash 10/10 seated on SC & standing at GB.) Bathing Location: L Arm, R Arm, L Upper Leg, R Upper Leg, L Lower Leg (including foot), R Lower Leg (including foot), Chest, Abdomen, Buttocks, Perineal Area Shower/Bathe Self (QC): 4 Upper Body (FIM): 5 (set up of clothing) Upper Body Dressing (QC): 5 Lower Body Dressing (FIM): 5 (SBA during stand at GB, and during threading of LE clothing secondary to pt swaying to side.) Lower Body Dressing (QC): 4 On/Off Footwear (QC): 4 Transfers (B, C, W/C) (FIM): 4 (CGA during sit to/from stand from chair & bed) Shower Transfer(FIM): 4 (CGA during transfer in/out of shower) Other Treatment Nursing stated pt could shower with dressing on and she will change it after shower. Pt completed ADL session in bedroom/bathroom. Post shower, nursing changed dressing on pt's L hand. Pt ambulated to therapy gym with FWW. In order to increase UE strength/endurane to increase independence in ADLs and functional activities, pt completed arm bike X15 min, mod resistance. Pt ambulated back to room using FWW. Post OT session, pt upright in recliner, call light in reach and needs met. Education OT Patient Education: Correct positioning, Energy conservation, Progress toward Goal/Update tx plan, Purpose of tx/functional activities, Transfer techniques Teaching Recipient: Patient Teaching Methods: Demonstration, Discussion Response to Teaching: Verbalize Understanding, Return Demonstration OT Short Term Goals Short Term Goals Transfers (B,C,W/C) (FIM): 5 1=Demonstrate adherence to instructed precautions during ADL tasks. 2=Patient will verbalize/demonstrate understanding of assistive devices/modifications for ADL. 3=Patient will improve strength/tolerance for activity to enable patient to perform ADL's. OT Shelter Goals Shelter Goals Time Frame: Dec 22, 2018 Eating (FIM): 6 Eating (QC): 6 Groomin Oral Hygiene (QC): 6 Bathing(FIM): 5 Shower/Bathe Self (QC): 4 Upper Body Dressing(FIM): 6 Upper Body Dressing (QC): 6 Lower Body Dressing(FIM): 6 Lower Body Dressing (QC): 6 On/Off Footwear (QC): 6 Toileting(FIM): 6 Toileting Hygiene (QC): 6 Transfers (B,C,W/C) (FIM): 6 Toilet/Commode Transfer(FIM): 6 Toilet/Commode Transfer (QC): 6 Shower Transfer(FIM): 5 Additional Goals: 1-Demonstrate ADL Tasks, 2-Verbalize Understanding, 3-Improve Strength/Ke[place]chi 1=Demonstrate adherence to instructed precautions during ADL tasks. 2=Patient will verbalize/demonstrate understanding of assistive devices/modifications for ADL. 3=Patient will improve strength/tolerance for activity to enable patient to pe rform ADL's. OT Education/Plan Problem List/Assessment Assessment: Decreased Activ Tolerance, Decreased UE Strength, Impaired Funct Balance, Impaired I ADL's, Impaired Self-Care Skills Discharge Recommendations Plan/Recommendations: Continue POC Treatment Plan/Plan of Care Treatment,Training & Education: Yes Patient would benefit from OT for education, treatment and training to promote independence in ADL's, mobility, safety and/or upper extremity function for ADL's. Plan of Care: ADL Retraining, Functional Mobility, Group Exercise/Act as Ind, UE Funct Exercise/Act Treatment Duration: Oct 21, 2018 Frequency: At least 5 of 7 days/Wk (IRF) Estimated Hrs Per Day: 1.5 hours per day Agreement: Yes Rehab Potential: Good Time/GCodes Start Time: 07:55 Stop Time: 08:55 Total Time Billed (hr/min): 60 Billed Treatment Time 1, ADL 3 X45 min. EX X15 min. LIZETTE GONZALEZ OT Dec 12, 2018 08:35
--- NOTE | 2018-12-12 08:42 | Progress Note - Hospitalist ---
[facility] 12/12/18 0842: Progress Note Ms. 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 I reviewed and verified all information documented by the medical student and made modifications to such information, when appropriate. I personally performed the physical exam and medical decision making. Vesta Arango, Dec 12, 2018,21:30 [facility] Dec 12, 2018 08:42 VESTA ARANGO DO Dec 12, 2018 21:30
--- NOTE | 2018-12-12 09:37 | Speech Therapy Daily Note ---
Speech Daily Progress Note Subjective Date Seen by Provider: Dec 12, 2018 Time Seen by Provider: 00:30 The patient was sitting in her chair watching television. She states she had a shower and breakfast so now she was just resting. Objective The patient completed sequencing activities related to her daily needs: cooking, cleaning and laundry with 90% accuracy given minimal verbal cues. Assessment Assessment Current Status: Good Progress Treatment Plan Continue Plan of Care Communication Comprehension: 5 Expression: 5 Social Cognition Social Interaction: 7 Problem Solvin Memory: 5 Speech Short Term Goals Short Term Goals Short Term Goals 1) The patient will complete memory tasks related to her daily needs with 90% or greater. 2) The patient will complete problem solving tasks related to her daily needs with 90% or greater. 3) The patient will complete safety tasks related to her daily needs with 90% or greater. Speech Communications Technician Goals Communications Technician Goals The patient will improve cognitive-communication necessary for safety and daily living tasks with minimal assist. Speech-Plan Patient/Family Goals Patient/Family Goals: The patient is planning on moving in to an LONGTERM post rehab. Treatment Plan Speech Therapy Treatment Plan: Continue Plan of Care The patient is making good progress with ST. Treatment Duration: Dec 17, 2018 Frequency: 5 times per week Estimated Hrs Per Day: .5 hour per day Rehab Potential: Good Barriers to Learning: The patient has mild cognitive deficits. Pt/Family Agrees to Plan: Yes Safety Risks/Education Teaching Recipient: Patient Teaching Methods: Demonstration, Discussion Response to Teaching: Verbalize Understanding, Return Demonstration Education Topics Provided: Continued safety and communication of wants/needs. Time Speech Therapy Time In: 09:00 Speech Therapy Time Out: 09:30 Total Billed Time: 30 Billed Treatment Time 1SHAYLA BETHANIA ST Dec 12, 2018 09:37
--- NOTE | 2018-12-12 10:06 | PM&R Progress Note ---
Subjective HPI/CC On Admission Date Seen by Provider: Dec 12, 2018 Time Seen by Provider: 09:45 CC: Frequent Falls Ms. Chou is a 68 y/o WF with PMH of HTN, DM, hyperlipidemia and [place] presents with a chief complaint of frequent falls. 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 She states she starts to get dizzy and her legs get weak causing her to fall. She denies loss of consciousness, but describes the room spinning prior to each episode. She presented to the ED after her last fall when she was found by her son and was unable to get her up. She denies urinary urgency or burning, fever, chills. She is occasionally incontinent of stool, and has been for the previous few months. Prior to the last week, she was independent with all ADL's and without falls. She has been to the ED for falls over the last couple of weeks for multiple falls. She was counselled to use a FWW, but has not been compliant. From social context, she lives alone in a 2nd floor, carpeted apartment. She has no stairs to navigate as there is an elevator to the second floor. Her PCP is Dr. Benavides. She has multiple prescriptions which could be exacerbating her symptoms. She has, in previous admissions, been open to the idea of assisted living. Social hx: denies alcohol use, smokes 1ppd for many years, and denies etoh usage PSH: B/l carotid endarterectomy, bso/edith Note per Balbir Richardson [facility] CC: Multiple falls with debility HPI: This is a 68yoWF who previously lived at home who was brought to the ER on Saturday night after multiple falls requiring multiple ER visits last week who suffered facial injuries and ecchymosis B/L in the most recent fall when the family found her down who has a PMH of severe neuropathy and diabetic complica tions along with peripheral vascular disease s/p B/L CEA managed by Dr. Springer and Dr. Benavides who presents to inpatient rehab in need of intensive therapy to prevent falls which could harm her further and has reluctantly agreed to go to assisted living because she really is unsafe to return home and live independently. At this current time pt feels well, her bowels are moving, urinating well, acute renal failure with creatinine of 1.6 improved with IV fluids given over night on Saturday night so I heplocked those yesterday and the rest of her labs look really good. At this current time pt is ready for rehab and is a poor historian with her other medical issues so will try to grab details from PCP office and pharmacy. 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 Assisted living versus skilled care at discharge Lead sugar 213 this morning Decreasing Levemir to prevent hypoglycemia since she was running low yesterday Set off bed alarm twice last night Hand wound looks good Overall very complex given the fact of her [id number] diabetes and other medical problems that have been end-stage including dementia further complicating the issue Check meds and labs Reviewed therapy notes Conferred with trimming department blocker of Systems Musculoskeletal: back pain, leg pain Objective Exam Vital Signs Vital Signs Date Time Temp Pulse Resp B/P (MAP) Pulse Ox O2 Delivery O2 Flow Rate FiO2 12/12/18 15:46 98.0 94 16 144/82 (102) 96 Room Air Capillary Refill : General Appearance: No Apparent Distress, WD/WN, Chronically ill, Obese HEENT: PERRL/EOMI, Normal ENT Inspection, Pharynx Normal, Moist Mucous Membranes, Other (facial ecchymosis) Neck: Full Range of Motion, Normal Inspection, Non Tender, Supple Respiratory: Chest Non Tender, Lungs Clear, Normal Breath Sounds, No Accessory Muscle Use, No Respiratory Distress Cardiovascular: Regular Rate, Rhythm, No Edema, No Gallop, No JVD, No Murmur Gastrointestinal: Normal Bowel Sounds, No Organomegaly, No Pulsatile Mass, Non Tender, Soft Back: Normal Inspection, No CVA Tenderness, No Vertebral Tenderness Extremity: Normal Capillary Refill, Normal Inspection, Normal Range of Motion, Non Tender, No Calf Tenderness, No Pedal Edema Neurologic/Psychiatric: Alert, Oriented x3, No Motor/Sensory Deficits, Normal Mood/Affect, Disoriented (subtle) Skin: Normal Color, Warm/Dry Lymphatic: No Adenopathy Results/Procedures Lab Laboratory Tests 12/12/18 05:40 Patient resulted labs reviewed. FIM Transfers Therapy Code Descriptions/Definitions Functional [place] Measure: 0=Not Assessed/NA 4=Minimal Assistance 1=Total Assistance 5=Supervision or Setup 2=Maximal Assistance 6=Modified [place] 3=Moderate Assistance 7=Complete [place] Therapy Quality Codes: 6 Independent with activity with or without an assistive device 5 Patient requires set up or clean up by helper. Patient completes activity by themselves 4 Supervision or touching assist (CGA). [place] provide cues , steadying assist 3 The helper provides less than half the effort to complete the activity 2 The helper provides more than half the effort to complete the activity 1 Dependent. The helper does all the effort to complete an activity 7 Patient refused to complete or attempt activity 9 The patient did not perform the activity before the current illness or injury 88 Not attempted due to Medical conditions or safety concerns Transfers (B, C, W/C) (FIM): 4 (CGA during sit to/from stand from chair & bed) Scootin Rollin Roll Left to Right (QC): 4 Supine to/from Sit: 4 Sit to/from Stand: 5 Sit to Lying (QC): 3 Sit to Stand (QC): 5 Chair/Qli-sm-Nayhn Xfer(QC): 4 Car Transfer (QC): 3 (assist with both legs to get into the car.) Gait Training Does the Patient Walk?: Yes Gait (FIM): 4 Distance (FIM): 3=150 ft Distance: 150' Walk 10 feet (QC): 4 Walk 50 ft with 2 Turns(QC): 4 Walk 150 ft (QC): 4 Walking 10ft/uneven surface-QC: 3 Gait Level of Assist: 4 Gait Persons Needed: 1 Gait Assistive Device: FWW Wheelchair Training Does the Pt Use a Wheelchair?: No Stair Training Stairs (FIM): 1 #of Steps: 1 1 Step (curb) (QC): 3 4 Steps (QC): 88 Level of Assist: 3 (min assist to step and and to lower off.) Balance Picking up an Object (QC): 88 Mental Status/Objective Comprehension: 5 Expression: 5 Social Interaction: 7 Problem Solvin Memory: 5 ADL-Treatment Feedin (Pt able to open containers, open a bag of chips, and drink I.) Eating (QC): 6 Groomin (CGA standing at sink with FWW, pt swayed to side X1 stating ) Oral Hygiene (QC): 4 Bathin (CGA during stand at GB. Pt able to wash 10/10 seated on SC & standing at GB.) Bathing Location: L Arm, R Arm, L Upper Leg, R Upper Leg, L Lower Leg (including foot), R Lower Leg (including foot), Chest, Abdomen, Buttocks, Perineal Area Shower/Bathe Self (QC): 4 Upper Extremity Dressin (set up of clothing) Upper Body Dressing (QC): 5 Lower Extremity Dressin (SBA during stand at GB, and during threading of LE clothing secondary to pt swaying to side.) Lower Body Dressing (QC): 4 On/Off Footwear (QC): 4 Toiletin (CGA) Toileting Hygiene (QC): 4 Toilet/Commode Transfer: 4 (CGA) Toilet Transfer (QC): 4 Shower: 4 (CGA during transfer in/out of shower) Assessment/Plan Assessment and Plan Assess & Plan/Chief Complaint Assessment: Fall Facial trauma Neuropathy Chronic pain Anxiety CAD PVD HTN Dementia Chronic dizziness Plan: IRF protocol AL at [place] versus [place] Home meds Increase insulin with SSI but decrease long acting to minimize night time hypoglycemia Restart but minimize dose (1) Fall Status: Acute Qualifiers: Encounter type: subsequent encounter Qualified Codes: W19.XXXD - Unspecified fall, subsequent encounter (2) Physical deconditioning Status: Acute (3) Debility Status: Acute (4) Diabetes mellitus Status: Chronic Qualifiers: Diabetes mellitus type: type 2 Diabetes mellitus mcc insulin use: without mcc use Diabetes mellitus complication status: with other specified complication Qualified Codes: E11.69 - Type 2 diabetes mellitus with other specified complication (5) CAD (coronary artery disease) Status: Chronic Qualifiers: Coronary Disease-Associated Artery/Lesion type: [place] artery [place] vs. transplanted heart: [place] heart Associated angina: without angina Qualified Codes: I25.10 - Atherosclerotic heart disease of [place] coronary artery without angina pectoris (6) Hyperlipidemia Status: Chronic Qualifiers: Hyperlipidemia type: mixed hyperlipidemia Qualified Codes: E78.2 - Mixed hyperlipidemia (7) Acute renal insufficiency Status: Acute (8) Neuropathy Status: Chronic (9) PVD (peripheral vascular disease) Status: Chronic (10) Hypertension Status: Chronic Qualifiers: Hypertension type: essential hypertension Qualified Codes: I10 - Essential (primary) hypertension (11) Facial trauma Status: Acute Qualifiers: Encounter type: subsequent encounter Qualified Codes: S09.93XD - Unspecified injury of face, subsequent encounter (12) Renal failure (ARF), acute on chronic Status: Acute Qualifiers: Acute renal failure type: unspecified (13) Leukocytosis Status: Acute Qualifiers: Leukocytosis type: leukemoid reaction Qualified Codes: D72.823 - Leukemoid reaction (14) H/O carotid endarterectomy Status: Chronic GUADALUPE AUSTIN DO Dec 12, 2018 10:06
[2018-12-12] MEDS: SENNA W/DOCUSATE (SENOKOT S) TABLET PO SCH ×2 (10:22→21:47)
[2018-12-12] MEDS: GEMFIBROZIL 600 MG (LOPID) TAB PO SCH ×2 (10:32→21:40)
[2018-12-12] MEDS: buPROPion SR 150 MG (WELLBUTRIN SR) TAB PO SCH ×2 (10:33→21:40)
[2018-12-12] MEDS: GABAPENTIN 600 MG (NEURONTIN) TAB PO SCH ×3 (10:33→21:40)
[2018-12-12] MEDS: CALCIUM CARB + VIT D 600 MG (CALCARB + D) TAB PO SCH (10:33)
[2018-12-12] MEDS: QUEtiapine 25 MG (SEROquel) TAB IMMEDIATE RELEASE PO SCH ×2 (10:33→21:40)
[2018-12-12] MEDS: MELOXICAM 7.5 MG (MOBIC) TABLET PO SCH (10:33)
[2018-12-12] MEDS: ALPRAZolam 0.5 MG (XANAX) TAB PO SCH (10:34)
[2018-12-12] MEDS: ASPIRIN E.C. 81 MG (ECOTRIN) TAB PO SCH (10:34)
[2018-12-12] MEDS: PANTOPRAZOLE 40 MG (PROTONIX) TAB PO SCH (10:34)
--- NOTE | 2018-12-12 12:03 | Physical Therapy Daily Note ---
PT Daily Note-Current Subjective Agrees to rx, states she is looking at asst living apt and considering a move Pain Location: No Pain Reported Mental Status Patient Orientation: Normal For Age Transfers Therapy Code Descriptions/Definitions Functional [place] Measure: 0=Not Assessed/NA 4=Minimal Assistance 1=Total Assistance 5=Supervision or Setup 2=Maximal Assistance 6=Modified [place] 3=Moderate Assistance 7=Complete [place] Therapy Quality Codes: 6 Independent with activity with or without an assistive device 5 Patient requires set up or clean up by helper. Patient completes activity by themselves 4 Supervision or touching assist (CGA). [place] provide cues , steadying assist 3 The helper provides less than half the effort to complete the activity 2 The helper provides more than half the effort to complete the activity 1 Dependent. The helper does all the effort to complete an activity 7 Patient refused to complete or attempt activity 9 The patient did not perform the activity before the current illness or injury 88 Not attempted due to Medical conditions or safety concerns Transfers (B, C, W/C) (FIM): 6 Scootin Rollin Supine to/from Sit: 6 Sit to/from Stand: 6 Bed to/from Chair: 6 Car Transfer (QC): 5 Weight Bearing Full Weight Bearing Full Weight Bearing Gait Training Does the Patient Walk?: Yes Gait (FIM): 5 Distance (FIM): 3=150 ft (175,125,150x2) Gait Level of Assist: 5 Gait Persons Needed: 1 Gait Assistive Device: FWW flexed at trunk, needs cues for position in FWW Stair Training Stair Training: Handrails/: 2 handrails Stairs (FIM): 5 #of Steps: 4 Stairs: Pattern: Reciprocal Level of Assist: 5 household exception Exercises Supine Ex: Ankle pumps, Quad Set, Rolling, Glut sets, Heel Slides, Short Arc Quads, Scooting, Straight leg raise (CGA), Hip abd/add Supine Reps: 15 Seated Therapy Exercises: Ankle pumps, Sit to stand, Long arc quads, Hip flexion, Hip abd/add Seated Reps: 12 NuStep Minutes: 12 NuStep Workload: 5 Treatments Nustep AM and PM as well as leg presses on Nustep x 12 Assessment Current Status: Good Progress c/o dizziness with position change ie sup to sit PT Short Term Goals Short Term Goals Time Frame: Dec 15, 2018 Transfers (B,C,W/C) (FIM): 5 Gait (FIM): 5 Distance (FIM): 3=150 ft PT Electrician Shop Goals Electrician Shop Goals PT Jail Goals Time Frame: Dec 26, 2018 Transfers (B,C,W/C) (FIM): 7 Sit to Lying (QC): 6 Lying-Sitting on Side/Bed(QC): 6 Sit to Stand (QC): 6 Rollin Roll Left to Right (QC): 6 Chair/Rvs-ku-Fnetx Xfer(QC): 6 Car Transfer (QC): 6 Does the Patient Walk: Yes Gait (FIM): 6 Gait distance (FIM): 3=150 ft Walk 10 feet (QC): 6 Walk 10ft-Uneven Surface(QC): 6 Walk 50ft with 2 Turns (QC): 6 Walk 150 ft (QC): 6 Gait Assistive Device: FWW Does the Pt use WC or Scooter?: No Stairs (FIM): 5 # of Steps: 4 1 Step (curb) (QC): 6 4 Steps (QC): 6 12 Steps (QC): 88 Picking up an Object (QC): 88 PT Plan Treatment/Plan Treatment Plan: Continue Plan of Care Treatment Plan: Bed Mobility, Education, Functional Activity [place], Functional Strength, Group Therapy, Gait, Safety, Therapeutic Exercise, Transfers Treatment Duration: Dec 26, 2018 Frequency: At least 5 of 7 days/Wk (IRF) Estimated Hrs Per Day: 1.5 hours per day Patient and/or Family Agrees t: Yes Safety Risks/Education Patient Education: Gait Training, Transfer Techniques, Steps, Correct Positioning, Disease Process, Safety Issues Teaching Recipient: Patient Teaching Methods: Demonstration, Discussion Response to Teaching: Verbalize Understanding, Return Demonstration, Rein forcement Needed Time/GCodes Time In: 1000 (1445) Time Out: 1100 (1515) Total Billed Treatment Time: 90 Total Billed Treatment 1x2,EX45m,FA15m,GT30m CINTHIA BRO ANSWERING SERVICE OPERATOR Dec 12, 2018 12:03
--- NOTE | 2018-12-12 12:18 | NUR ---
Individual from [facility] assisted living did not show for on-site evaluation at 10a. Family has contacted the facility to request alternative time. Family provided all necessary documents to complete Medicaid application. [employer] will assist patient in filing application online today. Addendum: 12/12/18 at 1619 by VINNIE ABBASI SS Kirstie, window systems administrator from [facility] is completed onset evaluation at 1 p.m[address] [facility] unable to except Medicaid pending applicants at this time; therefore, they want to deny placement. Patient and family expressed interest in a referral being sent to [facility] as patient and family do not feel that she is appropriate to return home due to continual dizziness. EDGAR explained Medicare benefit of 20 covered half-way days before required co-pay. [employer] assisted patient in completing online Medicaid application with reference number [id number]. Patient's progress will be discussed on Saturday.
[2018-12-12 15:46] VITALS: BP 144/82
[2018-12-12] MEDS: amLODIPine 5 MG (NORVASC) TAB PO SCH (17:47)
[2018-12-12] MEDS: MECLIZINE 25 MG (ANTIVERT) TAB PO PRN (17:53)
--- NOTE | 2018-12-12 19:22 | NUR ---
bedside report received from SAMUEL JOHNS, assume care of pt
[2018-12-12] MEDS: ALPRAZolam 1 MG (XANAX) TAB PO SCH (21:40)
--- NOTE | 2018-12-12 21:40 | NUR ---
assessments & interventions completed, see assessments & interventions
--- NOTE | 2018-12-12 21:45 | NUR ---
pt refused Senokot, fsbs 209 NovoLog 8 units and scheduled Levemir 15 units given, side rails up x4, bed alarm on
[2018-12-13 06:00] VITALS: BP 141/77
[2018-12-13] MEDS: inSUlin ASPART (NovoLOG) 1 UNIT/0.01 ML (CHARGE PER UNIT) SC SCH ×4 (06:12→21:16)
[2018-12-13] MEDS: GLIMEPIRIDE 4 MG (AMARYL) TAB PO SCH ×2 (06:13→17:12)
[2018-12-13] MEDS: metFORMIN XR 500 MG (GLUCOPHAGE XR) TAB PO SCH ×2 (06:13→17:12)
--- NOTE | 2018-12-13 07:26 | NUR ---
bedside report given to KASSI JOHNS
[2018-12-13] MEDS: ASPIRIN E.C. 81 MG (ECOTRIN) TAB PO SCH (08:16)
[2018-12-13] MEDS: MELOXICAM 7.5 MG (MOBIC) TABLET PO SCH (08:16)
[2018-12-13] MEDS: CALCIUM CARB + VIT D 600 MG (CALCARB + D) TAB PO SCH (08:16)
[2018-12-13] MEDS: buPROPion SR 150 MG (WELLBUTRIN SR) TAB PO SCH ×2 (08:16→21:13)
[2018-12-13] MEDS: GEMFIBROZIL 600 MG (LOPID) TAB PO SCH ×2 (08:16→21:12)
[2018-12-13] MEDS: SENNA W/DOCUSATE (SENOKOT S) TABLET PO SCH ×2 (08:16→21:23)
[2018-12-13] MEDS: GABAPENTIN 600 MG (NEURONTIN) TAB PO SCH ×3 (08:16→21:13)
[2018-12-13] MEDS: QUEtiapine 25 MG (SEROquel) TAB IMMEDIATE RELEASE PO SCH ×2 (08:16→21:12)
[2018-12-13] MEDS: ALPRAZolam 0.5 MG (XANAX) TAB PO SCH (08:17)
[2018-12-13] MEDS: PANTOPRAZOLE 40 MG (PROTONIX) TAB PO SCH (08:17)
--- NOTE | 2018-12-13 11:57 | Physical Therapy Daily Note ---
PT Daily Note-Current Subjective Pt agreeable to PT. Reports she is not able to go to [facility] at discharge. Reports she is working on financial issues. Transfers Therapy Code Descriptions/Definitions Functional [place] Measure: 0=Not Assessed/NA 4=Minimal Assistance 1=Total Assistance 5=Supervision or Setup 2=Maximal Assistance 6=Modified [place] 3=Moderate Assistance 7=Complete [place] Therapy Quality Codes: 6 Independent with activity with or without an assistive device 5 Patient requires set up or clean up by helper. Patient completes activity by themselves 4 Supervision or touching assist (CGA). [place] provide cues , steadying assist 3 The helper provides less than half the effort to complete the activity 2 The helper provides more than half the effort to complete the activity 1 Dependent. The helper does all the effort to complete an activity 7 Patient refused to complete or attempt activity 9 The patient did not perform the activity before the current illness or injury 88 Not attempted due to Medical conditions or safety concerns Weight Bearing Full Weight Bearing Full Weight Bearing Treatments SBA with bed mobility and transfers. Pt ambulated 150 ft x 2 with FWW with SB- CGA. Sit to stand 2 x 5 to address hip and quad strength to improve functional transfers. Pt in room in chair with needs met post treatment. Assessment Current Status: Good Progress Pt is making functional gains. No noted LOB episodes this visit and pt safe with transfer. PT Short Term Goals Short Term Goals Time Frame: Dec 15, 2018 Transfers (B,C,W/C) (FIM): 5 (met) Gait (FIM): 5 (met) Distance (FIM): 3=150 ft PT Shelter Goals Shelter Goals PT Shelter Goals Time Frame: Dec 26, 2018 Transfers (B,C,W/C) (FIM): 7 Sit to Lying (QC): 6 Lying-Sitting on Side/Bed(QC): 6 Sit to Stand (QC): 6 Rollin Roll Left to Right (QC): 6 Chair/Moq-qm-Ksmsx Xfer(QC): 6 Car Transfer (QC): 6 Does the Patient Walk: Yes Gait (FIM): 6 Gait distance (FIM): 3=150 ft Walk 10 feet (QC): 6 Walk 10ft-Uneven Surface(QC): 6 Walk 50ft with 2 Turns (QC): 6 Walk 150 ft (QC): 6 Gait Assistive Device: FWW Does the Pt use WC or Scooter?: No Stairs (FIM): 5 # of Steps: 4 1 Step (curb) (QC): 6 4 Steps (QC): 6 12 Steps (QC): 88 Picking up an Object (QC): 88 PT Plan Problem List Problem List: Activity Tolerance, Functional Strength, Safety, Balance, Gait, Transfer, Bed Mobility Treatment/Plan Treatment Plan: Continue Plan of Care Treatment Plan: Bed Mobility, Education, Functional Activity [place], Functional Strength, Group Therapy, Gait, Safety, Therapeutic Exercise, Transfers Treatment Duration: Dec 26, 2018 Frequency: At least 5 of 7 days/Wk (IRF) Estimated Hrs Per Day: 1.5 hours per day Patient and/or Family Agrees t: Yes Safety Risks/Education Patient Education: Transfer Techniques, Safety Issues Teaching Recipient: Patient Teaching Methods: Demonstration, Discussion Response to Teaching: Return Demonstration, Reinforcement Needed Discharge Recommendations Therapy D/C Recommendations: Physical Therapy Home Care Time/GCodes Time In: 830 Time Out: 846 Total Billed Treatment Time: 16 Total Billed Treatment visit GT 16 JJ COREA PT Dec 13, 2018 11:57
--- NOTE | 2018-12-13 12:23 | PM&R Progress Note ---
Subjective HPI/CC On Admission Date Seen by Provider: Dec 13, 2018 Time Seen by Provider: 12:00 CC: Frequent Falls Ms. Chou is a 68 y/o WF with PMH of HTN, DM, hyperlipidemia and ALTON presents with a chief complaint of frequent falls. 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 She states she starts to get dizzy and her legs get weak causing her to fall. She denies loss of consciousness, but describes the room spinning prior to each episode. She presented to the ED after her last fall when she was found by her son and was unable to get her up. She denies urinary urgency or burning, fever, chills. She is occasionally incontinent of stool, and has been for the previous few months. Prior to the last week, she was independent with all ADL's and without falls. She has been to the ED for falls over the last couple of weeks for multiple falls. She was counselled to use a FWW, but has not been compliant. From social context, she lives alone in a 2nd floor, carpeted apartment. She has no stairs to navigate as there is an elevator to the second floor. Her PCP is Dr. Benavides. She has multiple prescriptions which could be exacerbating her symptoms. She has, in previous admissions, been open to the idea of assisted living. Social hx: denies alcohol use, smokes 1ppd for many years, and denies etoh usage PSH: B/l carotid endarterectomy, bso/edith Note per Balbir Richardson [facility] CC: Multiple falls with debility HPI: This is a 68yoWF who previously lived at home who was brought to the ER on Saturday night after multiple falls requiring multiple ER visits last week who suffered facial injuries and ecchymosis B/L in the most recent fall when the family found her down who has a PMH of severe neuropathy and diabetic complications along with peripheral vascular disease s/p B/L CEA managed by Dr. Springer and Dr. Benavides who presents to inpatient rehab in need of intensive t herapy to prevent falls which could harm her further and has reluctantly agreed to go to assisted living because she really is unsafe to return home and live independently. At this current time pt feels well, her bowels are moving, urinating well, acute renal failure with creatinine of 1.6 improved with IV fluids given over night on Saturday night so I heplocked those yesterday and the rest of her labs look really good. At this current time pt is ready for rehab and is a poor historian with her other medical issues so will try to grab details from PCP office and pharmacy. 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 and will need to prevent hypoglycemia episodes to prevent even more brittle progression Assisted living versus skilled care at discharge depending on pending Medicaid Elevated sugars are noted then reasonable ones 166 Decreasing Levemir to prevent hypoglycemia but very labile Hand wound still with dressing intact Overall very complex given the fact of her [id number]-ogpkebh diabetes and other medical problems that have been end-stage including dementia further complicating the issue Check meds and labs Reviewed therapy notes Conferred with RN Day pass today with her son Review of Systems General: Fatigue Neurological: Confusion Objective Exam Vital Signs Vital Signs Date Time Temp Pulse Resp B/P (MAP) Pulse Ox O2 Delivery O2 Flow Rate FiO2 12/13/18 17:11 97.9 103 18 183/90 (121) 94 Room Air Capillary Refill : General Appearance: No Apparent Distress, WD/WN, Chronically ill, Obese HEENT: PERRL/EOMI, Normal ENT Inspection, Pharynx Normal, Moist Mucous Membranes, Other (facial ecchymosis) Neck: Full Range of Motion, Normal Inspection, Non Tender, Supple Respiratory: Chest Non Tender, Lungs Clear, Normal Breath Sounds, No Accessory Muscle Use, No Respiratory Distress Cardiovascular: Regular Rate, Rhythm, No Edema, No Gallop, No JVD, No Murmur Gastrointestinal: Normal Bowel Sounds, No Organomegaly, No Pulsatile Mass, Non Tender, Soft Back: Normal Inspection, No CVA Tenderness, No Vertebral Tenderness Extremity: Normal Capillary Refill, Normal Inspection, Normal Range of Motion, Non Tender, No Calf Tenderness, No Pedal Edema Neurologic/Psychiatric: Alert, Oriented x3, No Motor/Sensory Deficits, Normal Mood/Affect, Disoriented (subtle) Skin: Normal Color, Warm/Dry Lymphatic: No Adenopathy Results/Procedures Lab Patient resulted labs reviewed. FIM Transfers Therapy Code Descriptions/Definitions Functional [place] Measure: 0=Not Assessed/NA 4=Minimal Assistance 1=Total Assistance 5=Supervision or Setup 2=Maximal Assistance 6=Modified [place] 3=Moderate Assistance 7=Complete [place] Therapy Quality Codes: 6 Independent with activity with or without an assistive device 5 Patient requires set up or clean up by helper. Patient completes activity by themselves 4 Supervision or touching assist (CGA). [place] provide cues , steadying assist 3 The helper provides less than half the effort to complete the activity 2 The helper provides more than half the effort to complete the activity 1 Dependent. The helper does all the effort to complete an activity 7 Patient refused to complete or attempt activity 9 The patient did not perform the activity before the current illness or injury 88 Not attempted due to Medical conditions or safety concerns Transfers (B, C, W/C) (FIM): 6 Scootin Rollin Roll Left to Right (QC): 4 Supine to/from Sit: 6 Sit to/from Stand: 6 Sit to Lying (QC): 3 Sit to Stand (QC): 5 Chair/Zij-yf-Zjhzu Xfer(QC): 4 Bed to/from Chair: 6 Car Transfer (QC): 5 Gait Training Does the Patient Walk?: Yes Gait (FIM): 5 Distance (FIM): 3=150 ft (175,125,150x2) Distance: 150' Walk 10 feet (QC): 4 Walk 50 ft with 2 Turns(QC): 4 Walk 150 ft (QC): 4 Walking 10ft/uneven surface-QC: 3 Gait Level of Assist: 5 Gait Persons Needed: 1 Gait Assistive Device: FWW Wheelchair Training Does the Pt Use a Wheelchair?: No Stair Training Stair Training: Handrails/: 2 handrails Stairs (FIM): 5 #of Steps: 4 1 Step (curb) (QC): 3 4 Steps (QC): 88 Stairs: Pattern: Reciprocal Level of Assist: 5 Balance Picking up an Object (QC): 88 Mental Status/Objective Comprehension: 5 Expression: 5 Social Interaction: 7 Problem Solvin Memory: 5 ADL-Treatment Feedin (Pt able to open containers, open a bag of chips, and drink I.) Eating (QC): 6 Groomin (CGA standing at sink with FWW, pt swayed to side X1 stating ) Oral Hygiene (QC): 4 Bathin (CGA during stand at GB. Pt able to wash 10/10 seated on SC & standing at GB.) Bathing Location: L Arm, R Arm, L Upper Leg, R Upper Leg, L Lower Leg (including foot), R Lower Leg (including foot), Chest, Abdomen, Buttocks, Perineal Area Shower/Bathe Self (QC): 4 Upper Extremity Dressin (set up of clothing) Upper Body Dressing (QC): 5 Lower Extremity Dressin (SBA during stand at GB, and during threading of LE clothing secondary to pt swaying to side.) Lower Body Dressing (QC): 4 On/Off Footwear (QC): 4 Toiletin (CGA) Toileting Hygiene (QC): 4 Toilet/Commode Transfer: 4 (CGA) Toilet Transfer (QC): 4 Shower: 4 (CGA during transfer in/out of shower) Assessment/Plan Assessment and Plan Assess & Plan/Chief Complaint Assessment: Fall Facial trauma Neuropathy Chronic pain Anxiety CAD PVD HTN Dementia Chronic dizziness Plan: IRF protocol [place] at [place] versus [place] Home meds Increase insulin with SSI but decrease long acting to minimize night time hypoglycemia Restart but minimize dose Day Pass today (1) Fall Status: Acute Qualifiers: Encounter type: subsequent encounter Qualified Codes: W19.XXXD - Unspecified fall, subsequent encounter (2) Physical deconditioning Status: Acute (3) Debility Status: Acute (4) Diabetes mellitus Status: Chronic Qualifiers: Diabetes mellitus type: type 2 Diabetes mellitus fire coordinator insulin use: without custodial use Diabetes mellitus complication status: with other specified complication Qualified Codes: E11.69 - Type 2 diabetes mellitus with other specified complication (5) CAD (coronary artery disease) Status: Chronic Qualifiers: Coronary Disease-Associated Artery/Lesion type: [place] artery [place] vs. transplanted heart: [place] heart Associated angina: without angina Qualified Codes: I25.10 - Atherosclerotic heart disease of [place] coronary artery without angina pectoris (6) Hyperlipidemia Status: Chronic Qualifiers: Hyperlipidemia type: mixed hyperlipidemia Qualified Codes: E78.2 - Mixed hyperlipidemia (7) Acute renal insufficiency Status: Acute (8) Neuropathy Status: Chronic (9) PVD (peripheral vascular disease) Status: Chronic (10) Hypertension Status: Chronic Qualifiers: Hypertension type: essential hypertension Qualified Codes: I10 - Essential (primary) hypertension (11) Facial trauma Status: Acute Qualifiers: Encounter type: subsequent encounter Qualified Codes: S09.93XD - Unspecified injury of face, subsequent encounter (12) Renal failure (ARF), acute on chronic Status: Acute Qualifiers: Acute renal failure type: unspecified (13) Leukocytosis Status: Acute Qualifiers: Leukocytosis type: leukemoid reaction Qualified Codes: D72.823 - Leukemoid reaction (14) H/O carotid endarterectomy Status: Chronic GUADALUPE AUSTIN DO Dec 13, 2018 12:23
[2018-12-13 17:11] VITALS: BP 183/90
[2018-12-13] MEDS: amLODIPine 5 MG (NORVASC) TAB PO SCH (17:12)
--- NOTE | 2018-12-13 19:09 | NUR ---
bedside report received from KASSI JOHNS, assume care of pt
[2018-12-13] MEDS: ALPRAZolam 1 MG (XANAX) TAB PO SCH (21:12)
[2018-12-13] MEDS: MECLIZINE 25 MG (ANTIVERT) TAB PO PRN (21:13)
--- NOTE | 2018-12-13 21:15 | NUR ---
assessments & interventions completed, see assessments & interventions
--- NOTE | 2018-12-13 21:16 | NUR ---
fsbs 300 NovoLog 11 units & scheduled Levemir 15 units given, refused Senokot, pt requested Antivert 12.5mg for dizziness
[2018-12-14] MEDS: DOCUSATE SODIUM 100 MG (COLACE) CAP PO PRN (05:36)
[2018-12-14 05:59] VITALS: BP 122/78
[2018-12-14] MEDS: metFORMIN XR 500 MG (GLUCOPHAGE XR) TAB PO SCH ×2 (06:10→16:54)
[2018-12-14] MEDS: GLIMEPIRIDE 4 MG (AMARYL) TAB PO SCH ×2 (06:10→16:50)
[2018-12-14] MEDS: inSUlin ASPART (NovoLOG) 1 UNIT/0.01 ML (CHARGE PER UNIT) SC SCH ×4 (06:12→21:38)
--- NOTE | 2018-12-14 07:18 | NUR ---
bedside report given to SAMUEL JOHNS
[2018-12-14] MEDS: buPROPion SR 150 MG (WELLBUTRIN SR) TAB PO SCH ×2 (09:12→21:34)
[2018-12-14] MEDS: PANTOPRAZOLE 40 MG (PROTONIX) TAB PO SCH (09:12)
[2018-12-14] MEDS: ALPRAZolam 0.5 MG (XANAX) TAB PO SCH (09:13)
[2018-12-14] MEDS: MELOXICAM 7.5 MG (MOBIC) TABLET PO SCH (09:13)
[2018-12-14] MEDS: CALCIUM CARB + VIT D 600 MG (CALCARB + D) TAB PO SCH (09:13)
[2018-12-14] MEDS: GEMFIBROZIL 600 MG (LOPID) TAB PO SCH ×2 (09:13→21:34)
[2018-12-14] MEDS: QUEtiapine 25 MG (SEROquel) TAB IMMEDIATE RELEASE PO SCH ×2 (09:13→21:34)
[2018-12-14] MEDS: ASPIRIN E.C. 81 MG (ECOTRIN) TAB PO SCH (09:13)
[2018-12-14] MEDS: SENNA W/DOCUSATE (SENOKOT S) TABLET PO SCH ×3 (09:13→21:44)
[2018-12-14] MEDS: GABAPENTIN 600 MG (NEURONTIN) TAB PO SCH ×3 (09:14→21:33)
[2018-12-14] MEDS: MECLIZINE 25 MG (ANTIVERT) TAB PO PRN ×2 (09:22→21:35)
--- NOTE | 2018-12-14 12:00 | PM&R Progress Note ---
Subjective HPI/CC On Admission Date Seen by Provider: Dec 14, 2018 Time Seen by Provider: 11:45 CC: Frequent Falls Ms. Chou is a 68 y/o WF with PMH of HTN, DM, hyperlipidemia and ALTON presents with a chief complaint of frequent falls. 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 She states she starts to get dizzy and her legs get weak causing her to fall. She denies loss of consciousness, but describes the room spinning prior to each episode. She presented to the ED after her last fall when she was found by her son and was unable to get her up. She denies urinary urgency or burning, fever, chills. She is occasionally incontinent of stool, and has been for the previous few months. Prior to the last week, she was independent with all ADL's and without falls. She has been to the ED for falls over the last couple of weeks for multiple falls. She was counselled to use a FWW, but has not been compliant. From social context, she lives alone in a 2nd floor, carpeted apartment. She has no stairs to navigate as there is an elevator to the second floor. Her PCP is Dr. Benavides. She has multiple prescriptions which could be exacerbating her symptoms. She has, in previous admissions, been open to the idea of assisted living. Social hx: denies alcohol use, smokes 1ppd for many years, and denies etoh usage PSH: B/l carotid endarterectomy, bso/edith Note per Balbir Richardson [facility] CC: Multiple falls with debility HPI: This is a 68yoWF who previously lived at home who was brought to the ER on Saturday night after multiple falls requiring multiple ER visits last week who suffered facial injuries and ecchymosis B/L in the most recent fall when the family found her down who has a PMH of severe neuropathy and diabetic complications along with peripheral vascular disease s/p B/L CEA managed by Dr. Springer and Dr. Benavides who presents to inpatient rehab in need of intensive t herapy to prevent falls which could harm her further and has reluctantly agreed to go to assisted living because she really is unsafe to return home and live independently. At this current time pt feels well, her bowels are moving, urinating well, acute renal failure with creatinine of 1.6 improved with IV fluids given over night on Saturday night so I heplocked those yesterday and the rest of her labs look really good. At this current time pt is ready for rehab and is a poor historian with her other medical issues so will try to grab details from PCP office and pharmacy. Subjective/Events-last exam Brittle diabetes is something PCP will need to manage after DC Assisted living versus skilled care at discharge depending on pending Medicaid Elevated sugars are noted then reasonable ones occur Decreasing Levemir to prevent hypoglycemia but very labile Hand wound still with dressing intact and it appears to be improved Overall very complex given the fact of her kut-cy-vcrftih diabetes and other m edical problems that have been end-stage including dementia further complicating the issue Check meds and labs Reviewed therapy notes Conferred with RN Day pass went well yesterday Review of Systems General: Fatigue Musculoskeletal: leg pain Objective Exam Vital Signs Vital Signs Date Time Temp Pulse Resp B/P (MAP) Pulse Ox O2 Delivery O2 Flow Rate FiO2 12/14/18 05:59 99.0 96 20 122/78 (93) 93 Room Air Capillary Refill : General Appearance: No Apparent Distress, WD/WN, Chronically ill, Obese HEENT: PERRL/EOMI, Normal ENT Inspection, Pharynx Normal, Moist Mucous Membranes, Other (facial ecchymosis) Neck: Full Range of Motion, Normal Inspection, Non Tender, Supple Respiratory: Chest Non Tender, Lungs Clear, Normal Breath Sounds, No Accessory Muscle Use, No Respiratory Distress Cardiovascular: Regular Rate, Rhythm, No Edema, No Gallop, No JVD, No Murmur Gastrointestinal: Normal Bowel Sounds, No Organomegaly, No Pulsatile Mass, Non Tender, Soft Back: Normal Inspection, No CVA Tenderness, No Vertebral Tenderness Extremity: Normal Capillary Refill, Normal Inspection, Normal Range of Motion, Non Tender, No Calf Tenderness, No Pedal Edema Neurologic/Psychiatric: Alert, Oriented x3, No Motor/Sensory Deficits, Normal Mood/Affect, Disoriented (subtle) Skin: Normal Color, Warm/Dry Lymphatic: No Adenopathy Results/Procedures Lab Patient resulted labs reviewed. FIM Transfers Therapy Code Descriptions/Definitions Functional [place] Measure: 0=Not Assessed/NA 4=Minimal Assistance 1=Total Assistance 5=Supervision or Setup 2=Maximal Assistance 6=Modified [place] 3=Moderate Assistance 7=Complete [place] Therapy Quality Codes: 6 Independent with activity with or without an assistive device 5 Patient requires set up or clean up by helper. Patient completes activity by themselves 4 Supervision or touching assist (CGA). [place] provide cues , steadying assist 3 The helper provides less than half the effort to complete the activity 2 The helper provides more than half the effort to complete the activity 1 Dependent. The helper does all the effort to complete an activity 7 Patient refused to complete or attempt activity 9 The patient did not perform the activity before the current illness or injury 88 Not attempted due to Medical conditions or safety concerns Transfers (B, C, W/C) (FIM): 6 Scootin Rollin Roll Left to Right (QC): 4 Supine to/from Sit: 6 Sit to/from Stand: 6 Sit to Lying (QC): 3 Sit to Stand (QC): 5 Chair/Klq-zg-Jijrc Xfer(QC): 4 Bed to/from Chair: 6 Car Transfer (QC): 5 Gait Training Does the Patient Walk?: Yes Gait (FIM): 5 Distance (FIM): 3=150 ft (175,125,150x2) Distance: 150' Walk 10 feet (QC): 4 Walk 50 ft with 2 Turns(QC): 4 Walk 150 ft (QC): 4 Walking 10ft/uneven surface-QC: 3 Gait Level of Assist: 5 Gait Persons Needed: 1 Gait Assistive Device: FWW Wheelchair Training Does the Pt Use a Wheelchair?: No Stair Training Stair Training: Handrails/: 2 handrails Stairs (FIM): 5 #of Steps: 4 1 Step (curb) (QC): 3 4 Steps (QC): 88 Stairs: Pattern: Reciprocal Level of Assist: 5 Balance Picking up an Object (QC): 88 Mental Status/Objective Comprehension: 5 Expression: 5 Social Interaction: 7 Problem Solvin Memory: 5 ADL-Treatment Feedin (Pt able to open containers, open a bag of chips, and drink I.) Eating (QC): 6 Groomin (CGA standing at sink with FWW, pt swayed to side X1 stating ) Oral Hygiene (QC): 4 Bathin (CGA during stand at GB. Pt able to wash 10/10 seated on SC & standing at GB.) Bathing Location: L Arm, R Arm, L Upper Leg, R Upper Leg, L Lower Leg (including foot), R Lower Leg (including foot), Chest, Abdomen, Buttocks, Perineal Area Shower/Bathe Self (QC): 4 Upper Extremity Dressin (set up of clothing) Upper Body Dressing (QC): 5 Lower Extremity Dressin (SBA during stand at GB, and during threading of LE clothing secondary to pt swaying to side.) Lower Body Dressing (QC): 4 On/Off Footwear (QC): 4 Toiletin (CGA) Toileting Hygiene (QC): 4 Toilet/Commode Transfer: 4 (CGA) Toilet Transfer (QC): 4 Shower: 4 (CGA during transfer in/out of shower) Assessment/Plan Assessment and Plan Assess & Plan/Chief Complaint Assessment: Fall Facial trauma Neuropathy Chronic pain Anxiety CAD PVD HTN Dementia Chronic dizziness Plan: IRF protocol [place] at [place] versus [place] Home meds Increase insulin with SSI but decrease long acting to minimize night time hypoglycemia Day pass went well (1) Fall Status: Acute Qualifiers: Encounter type: subsequent encounter Qualified Codes: W19.XXXD - Unspecified fall, subsequent encounter (2) Physical deconditioning Status: Acute (3) Debility Status: Acute (4) Diabetes mellitus Status: Chronic Qualifiers: Diabetes mellitus type: type 2 Diabetes mellitus usp insulin use: 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 transplanted heart: [place] heart Associated angina: without angina Qualified Codes: I25.10 - Atherosclerotic heart disease of [place] coronary artery without angina pectoris (6) Hyperlipidemia Status: Chronic Qualifiers: Hyperlipidemia type: mixed hyperlipidemia Qualified Codes: E78.2 - Mixed hyperlipidemia (7) Acute renal insufficiency Status: Acute (8) Neuropathy Status: Chronic (9) PVD (peripheral vascular disease) Status: Chronic (10) Hypertension Status: Chronic Qualifiers: Hypertension type: essential hypertension Qualified Codes: I10 - Essential (primary) hypertension (11) Facial trauma Status: Acute Qualifiers: Encounter type: subsequent encounter Qualified Codes: S09.93XD - Unspecified injury of face, subsequent encounter (12) Renal failure (ARF), acute on chronic Status: Acute Qualifiers: Acute renal failure type: unspecified (13) Leukocytosis Status: Acute Qualifiers: Leukocytosis type: leukemoid reaction Qualified Codes: D72.823 - Leukemoid reaction (14) H/O carotid endarterectomy Status: Chronic GUADALUPE AUSTIN DO Dec 14, 2018 11:59
[2018-12-14] MEDS ORDERED: NON-FORMULARY MEDICATION 1 EA EA (Alendronate Sodium 70 MG) PO SCH (13:00)
[2018-12-14] MEDS ORDERED: LACTULOSE SYRUP 10GM/15ML (ENULOSE) 30ML UDC PO PRN (15:15)
[2018-12-14] MEDS: amLODIPine 5 MG (NORVASC) TAB PO SCH (16:54)
[2018-12-14 17:23] VITALS: BP 166/77
--- NOTE | 2018-12-14 19:13 | NUR ---
bedside report received from SAMUEL JOHNS, assume care of pt
[2018-12-14] MEDS: ALPRAZolam 1 MG (XANAX) TAB PO SCH (21:34)
--- NOTE | 2018-12-14 21:35 | NUR ---
assessments & interventions completed, see assessments & interventions
--- NOTE | 2018-12-14 21:38 | NUR ---
took Senokot but refused miralax, fsbs 233 NovoLog 8 units given
[2018-12-14] MEDS: POLYETHYLENE GLYCOL 17 GM (MIRALAX) PACK PO SCH (21:41)
[2018-12-15 05:18] VITALS: BP 115/63
[2018-12-15 05:22] LABS: BASOPHILS % (AUTO) 0 % (0-10); EOSINOPHILS # (AUTO) 0.2 10^3/uL (0.0-0.3); EOSINOPHILS % (AUTO) 3 % (0-10); HEMATOCRIT 35 % (35-52); HEMOGLOBIN 11.9 G/DL (11.5-16.0); LYMPHOCYTES # (AUTO) 1.7 X 10^3 (1.0-4.0); LYMPHOCYTES % (AUTO) 21 % (12-44); MEAN CORPUSCULAR HEMOGLOBIN 30 PG (25-34); MEAN CORPUSCULAR HGB CONC 34 G/DL (32-36); MEAN CORPUSCULAR VOLUME 87 FL (80-99); MEAN PLATELET VOLUME 9.1 FL (7.4-10.4); MONOCYTES # (AUTO) 0.6 X 10^3 (0.0-1.0); MONOCYTES % (AUTO) 7 % (0-12); NEUTROPHILS # (AUTO) 5.5 X 10^3 (1.8-7.8); NEUTROPHILS % (AUTO) 68 % (42-75); PLATELET COUNT 166 10^3/uL (130-400); RED CELL DISTRIBUTION WIDTH 15.2 % (10.0-14.5)
[2018-12-15 05:42] LABS: ALBUMIN 3.8 GM/DL (3.2-4.5); BILIRUBIN,TOTAL 0.4 MG/DL (0.1-1.0); CALCIUM 9.2 MG/DL (8.5-10.1); CREATININE SERUM 0.98 MG/DL (0.60-1.30); POTASSIUM 4.3 MMOL/L (3.6-5.0); TOTAL PROTEIN 6.2 GM/DL (6.4-8.2)
[2018-12-15] MEDS: inSUlin ASPART (NovoLOG) 1 UNIT/0.01 ML (CHARGE PER UNIT) SC SCH ×4 (06:00→21:47)
[2018-12-15] MEDS: metFORMIN XR 500 MG (GLUCOPHAGE XR) TAB PO SCH ×2 (06:29→17:25)
[2018-12-15] MEDS: GLIMEPIRIDE 4 MG (AMARYL) TAB PO SCH ×2 (06:29→17:25)
--- NOTE | 2018-12-15 07:14 | NUR ---
bedside report given to SAMUEL JOHNS
--- NOTE | 2018-12-15 08:04 | PM&R Progress Note ---
Subjective HPI/CC On Admission Date Seen by Provider: Dec 15, 2018 Time Seen by Provider: 08:00 CC: Frequent Falls Ms. Chou is a 68 y/o WF with PMH of HTN, DM, hyperlipidemia and ALTON presents with a chief complaint of frequent falls. 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 She states she starts to get dizzy and her legs get weak causing her to fall. She denies loss of consciousness, but describes the room spinning prior to each episode. She presented to the ED after her last fall when she was found by her son and was unable to get her up. She denies urinary urgency or burning, fever, chills. She is occasionally incontinent of stool, and has been for the previous few months. Prior to the last week, she was independent with all ADL's and without falls. She has been to the ED for falls over the last couple of weeks for multiple falls. She was counselled to use a FWW, but has not been compliant. From social context, she lives alone in a 2nd floor, carpeted apartment. She has no stairs to navigate as there is an elevator to the second floor. Her PCP is Dr. Benavides. She has multiple prescriptions which could be exacerbating her symptoms. She has, in previous admissions, been open to the idea of assisted living. Social hx: denies alcohol use, smokes 1ppd for many years, and denies etoh usage PSH: B/l carotid endarterectomy, bso/edith Note per Balbir Richardson [facility] CC: Multiple falls with debility HPI: This is a 68yoWF who previously lived at home who was brought to the ER on Saturday night after multiple falls requiring multiple ER visits last week who suffered facial injuries and ecchymosis B/L in the most recent fall when the family found her down who has a PMH of severe neuropathy and diabetic complica tions along with peripheral vascular disease s/p B/L CEA managed by Dr. Springer and Dr. Benavides who presents to inpatient rehab in need of intensive therapy to prevent falls which could harm her further and has reluctantly agreed to go to assisted living because she really is unsafe to return home and live independently. At this current time pt feels well, her bowels are moving, urinating well, acute renal failure with creatinine of 1.6 improved with IV fluids given over night on Saturday night so I heplocked those yesterday and the rest of her labs look really good. At this current time pt is ready for rehab and is a poor historian with her other medical issues so will try to grab details from PCP office and pharmacy. 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 of Systems General: Fatigue Musculoskeletal: foot pain Objective Exam Vital Signs Vital Signs Date Time Temp Pulse Resp B/P (MAP) Pulse Ox O2 Delivery O2 Flow Rate FiO2 12/15/18 18:00 98.9 108 18 173/73 (106) 96 Room Air Capillary Refill : General Appearance: No Apparent Distress, WD/WN, Chronically ill, Obese HEENT: PERRL/EOMI, Normal ENT Inspection, Pharynx Normal, Moist Mucous Membranes, Other (facial ecchymosis) Neck: Full Range of Motion, Normal Inspection, Non Tender, Supple Respiratory: Chest Non Tender, Lungs Clear, Normal Breath Sounds, No Accessory Muscle Use, No Respiratory Distress Cardiovascular: Regular Rate, Rhythm, No Edema, No Gallop, No JVD, No Murmur Gastrointestinal: Normal Bowel Sounds, No Organomegaly, No Pulsatile Mass, Non Tender, Soft Back: Normal Inspection, No CVA Tenderness, No Vertebral Tenderness Extremity: Normal Capillary Refill, Normal Inspection, Normal Range of Motion, Non Tender, No Calf Tenderness, No Pedal Edema Neurologic/Psychiatric: Alert, Oriented x3, No Motor/Sensory Deficits, Normal Mood/Affect, Disoriented (subtle) Skin: Normal Color, Warm/Dry Lymphatic: No Adenopathy Results/Procedures Lab Laboratory Tests 12/15/18 04:35 Patient resulted labs reviewed. FIM Transfers Therapy Code Descriptions/Definitions Functional [place] Measure: 0=Not Assessed/NA 4=Minimal Assistance 1=Total Assistance 5=Supervision or Setup 2=Maximal Assistance 6=Modified [place] 3=Moderate Assistance 7=Complete [place] Therapy Quality Codes: 6 Independent with activity with or without an assistive device 5 Patient requires set up or clean up by helper. Patient completes activity by themselves 4 Supervision or touching assist (CGA). [place] provide cues , steadying assist 3 The helper provides less than half the effort to complete the activity 2 The helper provides more than half the effort to complete the activity 1 Dependent. The helper does all the effort to complete an activity 7 Patient refused to complete or attempt activity 9 The patient did not perform the activity before the current illness or injury 88 Not attempted due to Medical conditions or safety concerns Transfers (B, C, W/C) (FIM): 6 Scootin Rollin Roll Left to Right (QC): 4 Supine to/from Sit: 6 Sit to/from Stand: 6 Sit to Lying (QC): 3 Sit to Stand (QC): 5 Chair/Big-lh-Qyezk Xfer(QC): 4 Bed to/from Chair: 6 Car Transfer (QC): 5 Gait Training Does the Patient Walk?: Yes Gait (FIM): 5 Distance (FIM): 3=150 ft (175,125,150x2) Distance: 150' Walk 10 feet (QC): 4 Walk 50 ft with 2 Turns(QC): 4 Walk 150 ft (QC): 4 Walking 10ft/uneven surface-QC: 3 Gait Level of Assist: 5 Gait Persons Needed: 1 Gait Assistive Device: FWW Wheelchair Training Does the Pt Use a Wheelchair?: No Stair Training Stair Training: Handrails/: 2 handrails Stairs (FIM): 5 #of Steps: 4 1 Step (curb) (QC): 3 4 Steps (QC): 88 Stairs: Pattern: Reciprocal Level of Assist: 5 Balance Picking up an Object (QC): 88 Mental Status/Objective Comprehension: 5 Expression: 5 Social Interaction: 7 Problem Solvin Memory: 5 ADL-Treatment Feedin (Pt able to open containers, open a bag of chips, and drink I.) Eating (QC): 6 Groomin (CGA standing at sink with FWW, pt swayed to side X1 stating ) Oral Hygiene (QC): 4 Bathin (CGA during stand at GB. Pt able to wash 10/10 seated on SC & standing at GB.) Bathing Location: L Arm, R Arm, L Upper Leg, R Upper Leg, L Lower Leg (including foot), R Lower Leg (including foot), Chest, Abdomen, Buttocks, Perineal Area Shower/Bathe Self (QC): 4 Upper Extremity Dressin (set up of clothing) Upper Body Dressing (QC): 5 Lower Extremity Dressin (SBA during stand at GB, and during threading of LE clothing secondary to pt swaying to side.) Lower Body Dressing (QC): 4 On/Off Footwear (QC): 4 Toiletin (CGA) Toileting Hygiene (QC): 4 Toilet/Commode Transfer: 4 (CGA) Toilet Transfer (QC): 4 Shower: 4 (CGA during transfer in/out of shower) Assessment/Plan Assessment and Plan Assess & Plan/Chief Complaint Assessment: Fall Facial trauma Neuropathy Chronic pain Anxiety CAD PVD HTN Dementia Chronic dizziness Plan: IRF protocol [place] at [place] versus [place] versus back home if able to manage? 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 transplanted heart: [place] heart Associated angina: without angina Qualified Codes: I25.10 - Atherosclerotic heart disease of [place] coronary artery without angina pectoris (6) Hyperlipidemia Status: Chronic Qualifiers: Hyperlipidemia type: mixed hyperlipidemia Qualified Codes: E78.2 - Mixed hyperlipidemia (7) Acute renal insufficiency Status: Acute (8) Neuropathy Status: Chronic (9) PVD (peripheral vascular disease) Status: Chronic (10) Hypertension Status: Chronic Qualifiers: Hypertension type: essential hypertension Qualified Codes: I10 - Essential (primary) hypertension (11) Facial trauma Status: Acute Qualifiers: Encounter type: subsequent encounter Qualified Codes: S09.93XD - Unspecified injury of face, subsequent encounter (12) Renal failure (ARF), acute on chronic Status: Acute Qualifiers: Acute renal failure type: unspecified (13) Leukocytosis Status: Acute Qualifiers: Leukocytosis type: leukemoid reaction Qualified Codes: D72.823 - Leukemoid reaction (14) H/O carotid endarterectomy Status: Chronic GUADALUPE AUSTIN DO Dec 15, 2018 08:04
--- NOTE | 2018-12-15 08:41 | Occupational Ther Daily Note ---
OT Current Status-Daily Note Subjective Pt laying in bed at start of session, agreed to OT tx focusing on ADLS. Pt denied having pain. Mental Status/Objective Patient Orientation: Normal For Age Therapy Code Descriptions/Definitions Functional [place] Measure: 0=Not Assessed/NA 4=Minimal Assistance 1=Total Assistance 5=Supervision or Setup 2=Maximal Assistance 6=Modified [place] 3=Moderate Assistance 7=Complete [place] ADL-Treatment Therapy Code Descriptions/Definitions Functional [place] Measure: 0=Not Assessed/NA 4=Minimal Assistance 1=Total Assistance 5=Supervision or Setup 2=Maximal Assistance 6=Modified [place] 3=Moderate Assistance 7=Complete [place] Therapy Quality Codes: 6 Independent with activity with or without an assistive device 5 Patient requires set up or clean up by helper. Patient completes activity by themselves 4 Supervision or touching assist (CGA). [place] provide cues , steadying assist 3 The helper provides less than half the effort to complete the activity 2 The helper provides more than half the effort to complete the activity 1 Dependent. The helper does all the effort to complete an activity 7 Patient refused to complete or attempt activity 9 The patient did not perform the activity before the current illness or injury 88 Not attempted due to Medical conditions or safety concerns Grooming (FIM): 5 (SBA standing at sink with FWW. Pt completed hand washing, face washing, brushing hair and teeth.) Oral Hygiene (QC): 4 Bathing (FIM): 5 (SBA while standing to wash buttocks. Pt able to use GB to sit to stand from SC) Bathing Location: L Arm, R Arm, L Upper Leg, R Upper Leg, L Lower Leg (including foot), R Lower Leg (including foot), Chest, Abdomen, Buttocks, Perineal Area Shower/Bathe Self (QC): 4 Upper Body (FIM): 5 (set up. Pt able to don pullover shirt and bra.) Upper Body Dressing (QC): 5 Lower Body Dressing (FIM): 5 (SBA during stand to pull up pants/underpants, and while sitting and bending down to put socks/shoes on.) Lower Body Dressing (QC): 4 On/Off Footwear (QC): 4 (SBA secondary to pt's sitting balance while bending down.) Toileting (FIM): 5 (SBA for safety.) Toileting Hygiene (QC): 4 Transfers (B, C, W/C) (FIM): 5 (SBA using FWW from bed/chair, mod I bed mobility) Toilet/Commode Transfer (FIM): 5 (SBA) Toilet Transfer (QC): 4 Shower Transfer(FIM): 4 (SBA) Other Treatment Pt completed ADLs in room, then ambulated to therapy gym with FWW. In order to increase UE strength and endurance to increase independence in ADLs, pt completed arm bike X15 mins, mod resistance. Pt ambulated back to room with FWW. Post OT session, pt sitting upright in recliner, call light and phone in reach and needs met. Education OT Patient Education: Correct positioning, Energy conservation, Exercise program, Progress toward Goal/Update tx plan, Purpose of tx/functional activities, Transfer techniques Teaching Recipient: Patient Teaching Methods: Demonstration, Discussion Response to Teaching: Verbalize Understanding, Return Demonstration OT Short Term Goals Short Term Goals Transfers (B,C,W/C) (FIM): 5 (met) 1=Demonstrate adherence to instructed precautions during ADL tasks. 2=Patient will verbalize/demonstrate understanding of assistive devices/modifications for ADL. 3=Patient will improve strength/tolerance for activity to enable patient to perform ADL's. OT Fci Goals Fci Goals Time Frame: Dec 22, 2018 Eating (FIM): 6 Eating (QC): 6 Groomin Oral Hygiene (QC): 6 Bathing(FIM): 5 Shower/Bathe Self (QC): 4 Upper Body Dressing(FIM): 6 Upper Body Dressing (QC): 6 Lower Body Dressing(FIM): 6 Lower Body Dressing (QC): 6 On/Off Footwear (QC): 6 Toileting(FIM): 6 Toileting Hygiene (QC): 6 Transfers (B,C,W/C) (FIM): 6 Toilet/Commode Transfer(FIM): 6 Toilet/Commode Transfer (QC): 6 Shower Transfer(FIM): 5 Additional Goals: 1-Demonstrate ADL Tasks, 2-Verbalize Understanding, 3- ImproveStrength/[place] 1=Demonstrate adherence to instructed precautions during ADL tasks. 2=Patient will verbalize/demonstrate understanding of assistive devices/modifications for ADL. 3=Patient will improve strength/tolerance for activity to enable patient to perform ADL's. OT Education/Plan Problem List/Assessment Assessment: Decreased Activ Tolerance, Decreased UE Strength, Impaired Funct Balance, Impaired I ADL's, Impaired Self-Care Skills Discharge Recommendations Plan/Recommendations: Continue POC Treatment Plan/Plan of Care Treatment,Training & Education: Yes Patient would benefit from OT for education, treatment and training to promote independence in ADL's, mobility, safety and/or upper extremity function for ADL's. Plan of Care: ADL Retraining, Functional Mobility, Group Exercise/Act as Ind, UE Funct Exercise/Act Treatment Duration: Oct 21, 2018 Frequency: At least 5 of 7 days/Wk (IRF) Estimated Hrs Per Day: 1.5 hours per day Agreement: Yes Rehab Potential: Good Time/GCodes Start Time: 07:55 Stop Time: 08:55 Total Time Billed (hr/min): 60 Billed Treatment Time 1, ADL 3 X45 min, EX X15min LIZETTE GONZALEZ OT Dec 15, 2018 08:41
--- NOTE | 2018-12-15 09:58 | Physical Therapy Daily Note ---
PT Daily Note-Current Subjective Agrees to Rx. Feels much better Pain Location: No Pain Reported Mental Status Patient Orientation: Normal For Age Transfers Therapy Code Descriptions/Definitions Functional [place] Measure: 0=Not Assessed/NA 4=Minimal Assistance 1=Total Assistance 5=Supervision or Setup 2=Maximal Assistance 6=Modified [place] 3=Moderate Assistance 7=Complete [place] Therapy Quality Codes: 6 Independent with activity with or without an assistive device 5 Patient requires set up or clean up by helper. Patient completes activity by themselves 4 Supervision or touching assist (CGA). [place] provide cues , steadying assist 3 The helper provides less than half the effort to complete the activity 2 The helper provides more than half the effort to complete the activity 1 Dependent. The helper does all the effort to complete an activity 7 Patient refused to complete or attempt activity 9 The patient did not perform the activity before the current illness or injury 88 Not attempted due to Medical conditions or safety concerns Transfers (B, C, W/C) (FIM): 6 Scootin Rollin Supine to/from Sit: 6 Sit to/from Stand: 6 Bed to/from Chair: 6 Car Transfer (QC): 6 Weight Bearing Full Weight Bearing Full Weight Bearing Gait Training Does the Patient Walk?: Yes Gait (FIM): 5 Distance (FIM): 3=150 ft (165x2) Gait Level of Assist: 5 Gait Persons Needed: 1 Gait Assistive Device: FWW Stair Training Stair Training: Handrails/: 2 handrails Stairs (FIM): 5 #of Steps: 4 Stairs: Pattern: Reciprocal Level of Assist: 5 household exception Exercises Supine Ex: Bridging, Ankle pumps, Quad Set, Rolling, Glut sets, Heel Slides, Short Arc Quads, Scooting, Straight leg raise, Hip abd/add Supine Reps: 12 Seated Therapy Exercises: Ankle pumps, Sit to stand, Long arc quads, Hip flexion, Hip abd/add Seated Reps: 12 Standing: Hip Abduction, Hamstring curls, Heel/toe raises, Marching Standing Reps: 10 NuStep Minutes: 10 NuStep Workload: 5 Treatments toileted indep Assessment Current Status: Good Progress PT Short Term Goals Short Term Goals Time Frame: Dec 15, 2018 Transfers (B,C,W/C) (FIM): 5 (met) Gait (FIM): 5 (met) Distance (FIM): 3=150 ft PT Drug Purchaser Goals Senior Living Goals PT Senior Living Goals Time Frame: Dec 26, 2018 Transfers (B,C,W/C) (FIM): 7 Sit to Lying (QC): 6 Lying-Sitting on Side/Bed(QC): 6 Sit to Stand (QC): 6 Rollin Roll Left to Right (QC): 6 Chair/Myk-qs-Jfhfj Xfer(QC): 6 Car Transfer (QC): 6 Does the Patient Walk: Yes Gait (FIM): 6 Gait distance (FIM): 3=150 ft Walk 10 feet (QC): 6 Walk 10ft-Uneven Surface(QC): 6 Walk 50ft with 2 Turns (QC): 6 Walk 150 ft (QC): 6 Gait Assistive Device: FWW Does the Pt use WC or Scooter?: No Stairs (FIM): 5 # of Steps: 4 1 Step (curb) (QC): 6 4 Steps (QC): 6 12 Steps (QC): 88 Picking up an Object (QC): 88 PT Plan Treatment/Plan Treatment Plan: Continue Plan of Care Treatment Plan: Bed Mobility, Education, Functional Activity [place], Functional Strength, Group Therapy, Gait, Safety, Therapeutic Exercise, Transfers Treatment Duration: Dec 26, 2018 Frequency: At least 5 of 7 days/Wk (IRF) Estimated Hrs Per Day: 1.5 hours per day Patient and/or Family Agrees t: Yes Safety Risks/Education Patient Education: Gait Training, Transfer Techniques, Steps, Correct Positioning, Disease Process, Safety Issues Teaching Recipient: Patient Teaching Methods: Demonstration, Discussion Response to Teaching: Verbalize Understanding, Return Demonstration, Reinforcement Needed Time/GCodes Time In: 900 Time Out: 1000 Total Billed Treatment Time: 60 Total Billed Treatment 1,GT15m,FA15m,EX30m CINTHIA BRO EQUIPMENT OPERATOR WAGE HAND Dec 15, 2018 09:58
[2018-12-15] MEDS: GABAPENTIN 600 MG (NEURONTIN) TAB PO SCH ×3 (10:08→21:45)
[2018-12-15] MEDS: buPROPion SR 150 MG (WELLBUTRIN SR) TAB PO SCH ×2 (10:08→21:42)
[2018-12-15] MEDS: MELOXICAM 7.5 MG (MOBIC) TABLET PO SCH (10:08)
[2018-12-15] MEDS: PANTOPRAZOLE 40 MG (PROTONIX) TAB PO SCH (10:08)
[2018-12-15] MEDS: CALCIUM CARB + VIT D 600 MG (CALCARB + D) TAB PO SCH (10:08)
[2018-12-15] MEDS: QUEtiapine 25 MG (SEROquel) TAB IMMEDIATE RELEASE PO SCH ×2 (10:08→21:42)
[2018-12-15] MEDS: GEMFIBROZIL 600 MG (LOPID) TAB PO SCH ×2 (10:08→21:42)
[2018-12-15] MEDS: ASPIRIN E.C. 81 MG (ECOTRIN) TAB PO SCH (10:08)
[2018-12-15] MEDS: ALPRAZolam 0.5 MG (XANAX) TAB PO SCH (10:09)
[2018-12-15] MEDS ORDERED: BISACODYL 10 MG SUPP (DULCOLAX) PR NR (11:30)
--- NOTE | 2018-12-15 11:43 | Occupational Ther Daily Note ---
OT Current Status-Daily Note Subjective Pt upright in recliner at start of session, agreed to OT tx. Pt denied pain this session. Mental Status/Objective Patient Orientation: Normal For Age Therapy Code Descriptions/Definitions Functional [place] Measure: 0=Not Assessed/NA 4=Minimal Assistance 1=Total Assistance 5=Supervision or Setup 2=Maximal Assistance 6=Modified [place] 3=Moderate Assistance 7=Complete [place] ADL-Treatment Therapy Code Descriptions/Definitions Functional [place] Measure: 0=Not Assessed/NA 4=Minimal Assistance 1=Total Assistance 5=Supervision or Setup 2=Maximal Assistance 6=Modified [place] 3=Moderate Assistance 7=Complete [place] Therapy Quality Codes: 6 Independent with activity with or without an assistive device 5 Patient requires set up or clean up by helper. Patient completes activity by themselves 4 Supervision or touching assist (CGA). [place] provide cues , steadying assist 3 The helper provides less than half the effort to complete the activity 2 The helper provides more than half the effort to complete the activity 1 Dependent. The helper does all the effort to complete an activity 7 Patient refused to complete or attempt activity 9 The patient did not perform the activity before the current illness or injury 88 Not attempted due to Medical conditions or safety concerns Toileting (FIM): 6 (mod I using FWW and grab bars. Pt completed 3/3 parts) Toileting Hygiene (QC): 6 Transfers (B, C, W/C) (FIM): 5 (SBA sit to stand to/from chair secondary to pt losing balance X1 and swaying towards R side) Toilet/Commode Transfer (FIM): 6 (Pt able to use GB and FWW to sit and stand from toilet.) Other Treatment Pt agreeable to OT tx, pt stated she needed to go to the restroom. Afterwards, pt ambulated to gym with FWW. In order to increase UE strength and endurance for functional activities, pt placed/removed X17 graded clothespins (ranging 1- 5lbs), alternating R/L hands, pt completed task X2reps, averaging 2 mins per rep to place/remove. Pt ambulated back to room with FWW. Post OT session, pt seated in recliner, call light and phone in reach and needs met. Education OT Patient Education: Exercise program, Progress toward Goal/Update tx plan, Purpose of tx/functional activities, Transfer techniques Teaching Recipient: Patient Teaching Methods: Demonstration Response to Teaching: Verbalize Understanding, Return Demonstration OT Short Term Goals Short Term Goals Transfers (B,C,W/C) (FIM): 5 (met) 1=Demonstrate adherence to instructed precautions during ADL tasks. 2=Patient will verbalize/demonstrate understanding of assistive devices/modifications for ADL. 3=Patient will improve strength/tolerance for activity to enable patient to perform ADL's. OT Residential Goals Materials Mgmt Tech Goals Time Frame: Dec 22, 2018 Eating (FIM): 6 Eating (QC): 6 Groomin Oral Hygiene (QC): 6 Bathing(FIM): 5 Shower/Bathe Self (QC): 4 Upper Body Dressing(FIM): 6 Upper Body Dressing (QC): 6 Lower Body Dressing(FIM): 6 Lower Body Dressing (QC): 6 On/Off Footwear (QC): 6 Toileting(FIM): 6 Toileting Hygiene (QC): 6 Transfers (B,C,W/C) (FIM): 6 Toilet/Commode Transfer(FIM): 6 Toilet/Commode Transfer (QC): 6 Shower Transfer(FIM): 5 Additional Goals: 1-Demonstrate ADL Tasks, 2-Verbalize Understanding, 3- ImproveStrength/[place] 1=Demonstrate adherence to instructed precautions during ADL tasks. 2=Patient will verbalize/demonstrate understanding of assistive devices/modifications for ADL. 3=Patient will improve strength/tolerance for activity to enable patient to perform ADL's. OT Education/Plan Problem List/Assessment Assessment: Decreased Activ Tolerance, Decreased UE Strength, Impaired Funct Balance, Impaired Self-Care Skills Discharge Recommendations Plan/Recommendations: Continue POC Treatment Plan/Plan of Care Patient would benefit from OT for education, treatment and training to promote independence in ADL's, mobility, safety and/or upper extremity function for ADL's. Plan of Care: ADL Retraining, Functional Mobility, Group Exercise/Act as Ind, UE Funct Exercise/Act Treatment Duration: Oct 21, 2018 Frequency: At least 5 of 7 days/Wk (IRF) Estimated Hrs Per Day: 1.5 hours per day Agreement: Yes Rehab Potential: Good Time/GCodes Start Time: 11:00 Stop Time: 11:15 Total Time Billed (hr/min): 15 Billed Treatment Time 1, FA X15min LIZETTE GONZALEZ OT Dec 15, 2018 11:43
--- NOTE | 2018-12-15 11:44 | Speech Therapy Daily Note ---
Speech Daily Progress Note Subjective Date Seen by Provider: Dec 15, 2018 Time Seen by Provider: 00:30 The patient was sitting on the side of her bed resting when I entered the room. Objective The patient completed a series of safety scenario cards for "what is wrong with this picture" with 90% accuracy given minimal verbal cues. Assessment Assessment Current Status: Good Progress Treatment Plan Continue Plan of Care Communication Comprehension: 5 Expression: 5 Social Cognition Social Interaction: 7 Problem Solvin Memory: 5 Speech Short Term Goals Short Term Goals Short Term Goals 1) The patient will complete memory tasks related to her daily needs with 90% or greater. 2) The patient will complete problem solving tasks related to her daily needs with 90% or greater. 3) The patient will complete safety tasks related to her daily needs with 90% or greater. Speech Group Home Goals Inspector Publications Goals The patient will improve cognitive-communication necessary for safety and daily living tasks with minimal assist. Speech-Plan Patient/Family Goals Patient/Family Goals: The patient plans on moving to an assisted living post rehab. Treatment Plan Speech Therapy Treatment Plan: Continue Plan of Care The patient has made good progress with skilled ST services. Treatment Duration: Dec 17, 2018 Frequency: 5 times per week Estimated Hrs Per Day: .5 hour per day Rehab Potential: Good Barriers to Learning: Patient has mild cognitive deficits, however these are resolving very well Pt/Family Agrees to Plan: Yes Safety Risks/Education Teaching Recipient: Patient Teaching Methods: Demonstration, Discussion Response to Teaching: Verbalize Understanding, Return Demonstration Education Topics Provided: Continued safety with her daily needs upon discharge to another living facility Time Speech Therapy Time In: 10:30 Speech Therapy Time Out: 11:00 Total Billed Time: 30 Billed Treatment Time 1SHAYLA BETHANIA ST Dec 15, 2018 11:44
[2018-12-15] MEDS: MECLIZINE 25 MG (ANTIVERT) TAB PO PRN (11:48)
--- NOTE | 2018-12-15 12:59 | NUR ---
Following discussion with team regarding patient's progress, Team will re-evaluate progress on Saturday at Team Conference as patient remains SBA for most activities. Addendum: 12/15/18 at 1700 by VINNIE ABBASI SS MANAGER BIOLOGICS met with patient and son to facilitate notarization of power of district attorney documents. No notarization provided by Nasreen, on call pharmacy technician. The original and a copy were provided to patient, MANAGER BIOLOGICS placed a copy in the patient's chart. Patient has appointed her [id number], Patrizia as DPOA.
--- NOTE | 2018-12-15 13:27 | Physical Therapy Daily Note ---
PT Daily Note-Current Subjective Agreeable to Rx. Pain Location: No Pain Reported Mental Status Patient Orientation: Normal For Age Transfers Therapy Code Descriptions/Definitions Functional [place] Measure: 0=Not Assessed/NA 4=Minimal Assistance 1=Total Assistance 5=Supervision or Setup 2=Maximal Assistance 6=Modified [place] 3=Moderate Assistance 7=Complete [place] Therapy Quality Codes: 6 Independent with activity with or without an assistive device 5 Patient requires set up or clean up by helper. Patient completes activity by themselves 4 Supervision or touching assist (CGA). [place] provide cues , steadying a ssist 3 The helper provides less than half the effort to complete the activity 2 The helper provides more than half the effort to complete the activity 1 Dependent. The helper does all the effort to complete an activity 7 Patient refused to complete or attempt activity 9 The patient did not perform the activity before the current illness or injury 88 Not attempted due to Medical conditions or safety concerns all TRFs with SBA and some instruction regarding use of hands and safety. Weight Bearing Full Weight Bearing Full Weight Bearing Gait Training Does the Patient Walk?: Yes gait FWW 125ft, 150 ft SBA, more kyphotic which pt. states is because she is tired. Exercises Seated Therapy Exercises: Ankle pumps, Long arc quads, Hip flexion, Hip abd/add Seated Reps: 15 Assessment Current Status: Good Progress toileted SBA PT Short Term Goals Short Term Goals Time Frame: Dec 15, 2018 Transfers (B,C,W/C) (FIM): 5 (met) Gait (FIM): 5 (met) Distance (FIM): 3=150 ft PT Intermediate Goals Intermediate Goals PT Intermediate Goals Time Frame: Dec 26, 2018 Transfers (B,C,W/C) (FIM): 7 Sit to Lying (QC): 6 Lying-Sitting on Side/Bed(QC): 6 Sit to Stand (QC): 6 Rollin Roll Left to Right (QC): 6 Chair/Nmb-vw-Oqhee Xfer(QC): 6 Car Transfer (QC): 6 Does the Patient Walk: Yes Gait (FIM): 6 Gait distance (FIM): 3=150 ft Walk 10 feet (QC): 6 Walk 10ft-Uneven Surface(QC): 6 Walk 50ft with 2 Turns (QC): 6 Walk 150 ft (QC): 6 Gait Assistive Device: FWW Does the Pt use WC or Scooter?: No Stairs (FIM): 5 # of Steps: 4 1 Step (curb) (QC): 6 4 Steps (QC): 6 12 Steps (QC): 88 Picking up an Object (QC): 88 PT Plan Treatment/Plan Treatment Plan: Continue Plan of Care Treatment Plan: Bed Mobility, Education, Functional Activity [place], Functional Strength, Group Therapy, Gait, Safety, Therapeutic Exercise, Transfers Treatment Duration: Dec 26, 2018 Frequency: At least 5 of 7 days/Wk (IRF) Estimated Hrs Per Day: 1.5 hours per day Patient and/or Family Agrees t: Yes Safety Risks/Education Patient Education: Gait Training, Transfer Techniques, Correct Positioning, Disease Process, Safety Issues Teaching Recipient: Patient Teaching Methods: Demonstration, Discussion Response to Teaching: Verbalize Understanding, Return Demonstration, [facility] ement Needed Time/GCodes Time In: 1305 Time Out: 1320 Total Billed Treatment Time: 15 Total Billed Treatment 1,GT15m CINTHIA RBO PIPE AND BOILER [employer]OVERS SUPERVISOR Dec 15, 2018 13:27
[2018-12-15] MEDS: amLODIPine 5 MG (NORVASC) TAB PO SCH (17:25)
[2018-12-15 18:00] VITALS: BP 173/73
--- NOTE | 2018-12-15 19:18 | NUR ---
bedside report received from SAMUEL JOHNS, assume care of pt
[2018-12-15] MEDS: POLYETHYLENE GLYCOL 17 GM (MIRALAX) PACK PO SCH (21:39)
[2018-12-15] MEDS: ALPRAZolam 1 MG (XANAX) TAB PO SCH (21:42)
--- NOTE | 2018-12-15 21:43 | NUR ---
assessments & interventions completed, see assessments & interventions, refused [place], bayronbs 286 NovoLog 11 units given
[2018-12-15] MEDS: SENNA W/DOCUSATE (SENOKOT S) TABLET PO SCH (21:49)
[2018-12-16 05:58] VITALS: BP 158/74
[2018-12-16] MEDS: inSUlin ASPART (NovoLOG) 1 UNIT/0.01 ML (CHARGE PER UNIT) SC SCH ×4 (06:21→21:45)
[2018-12-16] MEDS: MECLIZINE 25 MG (ANTIVERT) TAB PO PRN ×2 (06:21→17:29)
[2018-12-16] MEDS: metFORMIN XR 500 MG (GLUCOPHAGE XR) TAB PO SCH ×2 (06:21→17:29)
[2018-12-16] MEDS: GLIMEPIRIDE 4 MG (AMARYL) TAB PO SCH ×2 (06:21→17:29)
--- NOTE | 2018-12-16 07:24 | NUR ---
bedside report given to MAGDALENE JOHNS
--- NOTE | 2018-12-16 08:13 | Occupational Ther Daily Note ---
OT Current Status-Daily Note Subjective Pt seated EOB at start of session, agreed to OT tx in therapy gym focusing on UE. Pt stated she slept good last night, and denied pain. Mental Status/Objective Patient Orientation: Normal For Age Therapy Code Descriptions/Definitions Functional [place] Measure: 0=Not Assessed/NA 4=Minimal Assistance 1=Total Assistance 5=Supervision or Setup 2=Maximal Assistance 6=Modified [place] 3=Moderate Assistance 7=Complete [place] ADL-Treatment Therapy Code Descriptions/Definitions Functional [place] Measure: 0=Not Assessed/NA 4=Minimal Assistance 1=Total Assistance 5=Supervision or Setup 2=Maximal Assistance 6=Modified [place] 3=Moderate Assistance 7=Complete [place] Therapy Quality Codes: 6 Independent with activity with or without an assistive device 5 Patient requires set up or clean up by helper. Patient completes activity by themselves 4 Supervision or touching assist (CGA). [place] provide cues , steadying assi st 3 The helper provides less than half the effort to complete the activity 2 The helper provides more than half the effort to complete the activity 1 Dependent. The helper does all the effort to complete an activity 7 Patient refused to complete or attempt activity 9 The patient did not perform the activity before the current illness or injury 88 Not attempted due to Medical conditions or safety concerns Transfers (B, C, W/C) (FIM): 5 (SBA for safety/balance sit to/from stand from bed & chair) Other Treatment Pt ambulated to therapy gym using FWW. In order to increase UE strength and endurance for ADLs and functional activities, pt completed arm bike X15 mins, mod resistance. In order to increase UE endurance and fine motor strength for ADLs and functional task, pt placed/removed X100 pegs from pegboard in 13 mins 13 secs. Pt ambulated back to room with RW. Post OT session, pt seated in recliner, call light and phone in reach and all needs met. Education OT Patient Education: Correct positioning, Exercise program, Progress toward Goal/Update tx plan, Purpose of tx/functional activities, Transfer techniques Teaching Recipient: Patient Teaching Methods: Demonstration, Discussion Response to Teaching: Verbalize Understanding, Return Demonstration OT Short Term Goals Short Term Goals Transfers (B,C,W/C) (FIM): 5 (met) 1=Demonstrate adherence to instructed precautions during ADL tasks. 2=Patient will verbalize/demonstrate understanding of assistive devices/modifications for ADL. 3=Patient will improve strength/tolerance for activity to enable patient to perform ADL's. OT [facility]ci Goals Telegraph Dispatcher Goals Time Frame: Dec 22, 2018 Eating (FIM): 6 Eating (QC): 6 Groomin Oral Hygiene (QC): 6 Bathing(FIM): 5 Shower/Bathe Self (QC): 4 Upper Body Dressing(FIM): 6 Upper Body Dressing (QC): 6 Lower Body Dressing(FIM): 6 Lower Body Dressing (QC): 6 On/Off Footwear (QC): 6 Toileting(FIM): 6 Toileting Hygiene (QC): 6 Transfers (B,C,W/C) (FIM): 6 Toilet/Commode Transfer(FIM): 6 Toilet/Commode Transfer (QC): 6 Shower Transfer(FIM): 5 Additional Goals: 1-Demonstrate ADL Tasks, 2-Verbalize Understanding, 3- ImproveStrength/Ke[place] 1=Demonstrate adherence to instructed precautions during ADL tasks. 2=Patient will verbalize/demonstrate understanding of assistive devices/modific ations for ADL. 3=Patient will improve strength/tolerance for activity to enable patient to perform ADL's. OT Education/Plan Problem List/Assessment Assessment: Decreased Activ Tolerance, Decreased UE Strength, Impaired Funct Balance, Impaired Self-Care Skills Discharge Recommendations Plan/Recommendations: Continue POC Treatment Plan/Plan of Care Treatment,Training & Education: Yes Patient would benefit from OT for education, treatment and training to promote independence in ADL's, mobility, safety and/or upper extremity function for ADL's. Plan of Care: ADL Retraining, Functional Mobility, Group Exercise/Act as Ind, UE Funct Exercise/Act Treatment Duration: Oct 21, 2018 Frequency: At least 5 of 7 days/Wk (IRF) Estimated Hrs Per Day: 1.5 hours per day Agreement: Yes Rehab Potential: Good Time/GCodes Start Time: 08:00 Stop Time: 08:45 Total Time Billed (hr/min): 45 Billed Treatment Time 1, EX X15min, FA 2 X30min LIZETTE GONZALEZ OT Dec 16, 2018 08:13
--- NOTE | 2018-12-16 08:42 | PM&R Progress Note ---
Subjective HPI/CC On Admission Date Seen by Provider: Dec 16, 2018 Time Seen by Provider: 08:30 CC: Frequent Falls Ms. Chou is a 68 y/o WF with PMH of HTN, DM, hyperlipidemia and ALTON presents with a chief complaint of frequent falls. She has been experiencing increased falls over the last 2 week, reportedly between 10-15 falls in the last week REEL CUTTER. She states she starts to get dizzy and her legs get weak causing her to fall. She denies loss of consciousness, but describes the room spinning prior to each episode. She presented to the ED after her last fall when she was found by her son and was unable to get her up. She denies urinary urgency or burning, fever, chills. She is occasionally incontinent of stool, and has been for the previous few months. Prior to the last week, she was independent with all ADL's and without falls. She has been to the ED for falls over the last couple of weeks for multiple falls. She was counselled to use a FWW, but has not been compliant. From social context, she lives alone in a 2nd floor, carpeted apartment. She has no stairs to navigate as there is an elevator to the second floor. Her PCP is Dr. Benavides. She has multiple prescriptions which could be exacerbating her symptoms. She has, in previous admissions, been open to the idea of assisted living. Social hx: denies alcohol use, smokes 1ppd for many years, and denies etoh usage PSH: B/l carotid endarterectomy, bso/edith Note per Balbir Richardson [facility] CC: Multiple falls with debility HPI: This is a 68yoWF who previously lived at home who was brought to the ER on Saturday night after multiple falls requiring multiple ER visits last week who suffered facial injuries and ecchymosis B/L in the most recent fall when the family found her down who has a PMH of severe neuropathy and diabetic complications along with peripheral vascular disease s/p B/L CEA managed by Dr. Springer and Dr. Benavides who presents to inpatient rehab in need of intensive t herapy to prevent falls which could harm her further and has reluctantly agreed to go to assisted living because she really is unsafe to return home and live independently. At this current time pt feels well, her bowels are moving, urinating well, acute renal failure with creatinine of 1.6 improved with IV fluids given over night on Saturday night so I heplocked those yesterday and the rest of her labs look really good. At this current time pt is ready for rehab and is a poor historian with her other medical issues so will try to grab details from PCP office and pharmacy. Subjective/Events-last exam Pt doing very well. Had dressing changes on the hand and that is doing well. Meclizine given here BID to minimize over-sedation and that seems to be working well for chronic dizziness. Discharge planned, possibly to home, depending on what her overall status is with therapy, we will discuss it team meeting tomorrow. Check meds and labs Reviewed therapy notes Conferred with supervisor instant potato processing of Systems General: Fatigue Objective Exam Vital Signs Vital Signs Date Time Temp Pulse Resp B/P (MAP) Pulse Ox O2 Delivery O2 Flow Rate FiO2 12/16/18 17:51 97.3 87 16 175/83 (113) 100 Room Air Capillary Refill : General Appearance: No Apparent Distress, WD/WN, Chronically ill, Obese HEENT: PERRL/EOMI, Normal ENT Inspection, Pharynx Normal, Moist Mucous Membranes, Other (facial ecchymosis) Neck: Full Range of Motion, Normal Inspection, Non Tender, Supple Respiratory: Chest Non Tender, Lungs Clear, Normal Breath Sounds, No Accessory Muscle Use, No Respiratory Distress Cardiovascular: Regular Rate, Rhythm, No Edema, No Gallop, No JVD, No Murmur Gastrointestinal: Normal Bowel Sounds, No Organomegaly, No Pulsatile Mass, Non Tender, Soft Back: Normal Inspection, No CVA Tenderness, No Vertebral Tenderness Extremity: Normal Capillary Refill, Normal Inspection, Normal Range of Motion, Non Tender, No Calf Tenderness, No Pedal Edema Neurologic/Psychiatric: Alert, Oriented x3, No Motor/Sensory Deficits, Normal Mood/Affect, Disoriented (subtle) Skin: Normal Color, Warm/Dry Lymphatic: No Adenopathy Results/Procedures Lab Patient resulted labs reviewed. FIM Transfers Therapy Code Descriptions/Definitions Functional [place] Measure: 0=Not Assessed/NA 4=Minimal Assistance 1=Total Assistance 5=Supervision or Setup 2=Maximal Assistance 6=Modified [place] 3=Moderate Assistance 7=Complete [place] Therapy Quality Codes: 6 Independent with activity with or without an assistive device 5 Patient requires set up or clean up by helper. Patient completes activity by themselves 4 Supervision or touching assist (CGA). [place] provide cues , steadying assist 3 The helper provides less than half the effort to complete the activity 2 The helper provides more than half the effort to complete the activity 1 Dependent. The helper does all the effort to complete an activity 7 Patient refused to complete or attempt activity 9 The patient did not perform the activity before the current illness or injury 88 Not attempted due to Medical conditions or safety concerns Transfers (B, C, W/C) (FIM): 5 (SBA for safety/balance sit to/from stand from bed & chair) Scootin Rollin Roll Left to Right (QC): 4 Supine to/from Sit: 6 Sit to/from Stand: 6 Sit to Lying (QC): 3 Sit to Stand (QC): 5 Chair/Qqt-ow-Glgrj Xfer(QC): 4 Bed to/from Chair: 6 Car Transfer (QC): 6 Gait Training Does the Patient Walk?: Yes Gait (FIM): 5 Distance (FIM): 3=150 ft (165x2) Distance: 150' Walk 10 feet (QC): 4 Walk 50 ft with 2 Turns(QC): 4 Walk 150 ft (QC): 4 Walking 10ft/uneven surface-QC: 3 Gait Level of Assist: 5 Gait Persons Needed: 1 Gait Assistive Device: FWW Wheelchair Training Does the Pt Use a Wheelchair?: No Stair Training Stair Training: Handrails/: 2 handrails Stairs (FIM): 5 #of Steps: 4 1 Step (curb) (QC): 3 4 Steps (QC): 88 Stairs: Pattern: Reciprocal Level of Assist: 5 Balance Picking up an Object (QC): 88 Mental Status/Objective Comprehension: 5 Expression: 5 Social Interaction: 7 Problem Solvin Memory: 5 ADL-Treatment Feedin (Pt able to open containers, open a bag of chips, and drink I.) Eating (QC): 6 Groomin (SBA standing at sink with FWW. Pt completed hand washing, face washing, brushing hair and teeth.) Oral Hygiene (QC): 4 Bathin (SBA while standing to wash buttocks. Pt able to use GB to sit to stand from TN) Bathing Location: L Arm, R Arm, L Upper Leg, R Upper Leg, L Lower Leg (including foot), R Lower Leg (including foot), Chest, Abdomen, Buttocks, Perineal Area Shower/Bathe Self (QC): 4 Upper Extremity Dressin (set up. Pt able to don pullover shirt and bra.) Upper Body Dressing (QC): 5 Lower Extremity Dressin (SBA during stand to pull up pants/underpants, and while sitting and bending down to put socks/shoes on.) Lower Body Dressing (QC): 4 On/Off Footwear (QC): 4 (SBA secondary to pt's sitting balance while bending down.) Toiletin (mod I using FWW and grab bars. Pt completed 3/3 parts) Toileting Hygiene (QC): 6 Toilet/Commode Transfer: 6 (Pt able to use GB and FWW to sit and stand from toilet.) Toilet Transfer (QC): 4 Shower: 4 (SBA) Assessment/Plan Assessment and Plan Assess & Plan/Chief Complaint Assessment: Fall Facial trauma Neuropathy Chronic pain Anxiety CAD PVD HTN Dementia Chronic dizziness Plan: IRF protocol [place] at [place] versus [place] versus back home if able to manage? 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 transplanted heart: [place] heart Associated angina: without angina Qualified Codes: I25.10 - Atherosclerotic heart disease of [place] coronary artery without angina pectoris (6) Hyperlipidemia Status: Chronic Qualifiers: Hyperlipidemia type: mixed hyperlipidemia Qualified Codes: E78.2 - Mixed hyperlipidemia (7) Acute renal insufficiency Status: Acute (8) Neuropathy Status: Chronic (9) PVD (peripheral vascular disease) Status: Chronic (10) Hypertension Status: Chronic Qualifiers: Hypertension type: essential hypertension Qualified Codes: I10 - Essential (primary) hypertension (11) Facial trauma Status: Acute Qualifiers: Encounter type: subsequent encounter Qualified Codes: S09.93XD - Unspecified injury of face, subsequent encounter (12) Renal failure (ARF), acute on chronic Status: Acute Qualifiers: Acute renal failure type: unspecified (13) Leukocytosis Status: Acute Qualifiers: Leukocytosis type: leukemoid reaction Qualified Codes: D72.823 - Leukemoid reaction (14) H/O carotid endarterectomy Status: Chronic GUADALUPE AUSTIN DO Dec 16, 2018 08:41
--- NOTE | 2018-12-16 09:46 | Physical Therapy Daily Note ---
PT Daily Note-Current Subjective Pt sitting in recliner upon arrival. Pt agrees to PT. Pain Location: No Pain Reported Mental Status Patient Orientation: Person, Place, Situation Transfers Therapy Code Descriptions/Definitions Functional [place] Measure: 0=Not Assessed/NA 4=Minimal Assistance 1=Total Assistance 5=Supervision or Setup 2=Maximal Assistance 6=Modified [place] 3=Moderate Assistance 7=Complete [place] Therapy Quality Codes: 6 Independent with activity with or without an assistive device 5 Patient requires set up or clean up by helper. Patient completes activity by themselves 4 Supervision or touching assist (CGA). [place] provide cues , steadying assist 3 The helper provides less than half the effort to complete the activity 2 The helper provides more than half the effort to complete the activity 1 Dependent. The helper does all the effort to complete an activity 7 Patient refused to complete or attempt activity 9 The patient did not perform the activity before the current illness or injury 88 Not attempted due to Medical conditions or safety concerns Scootin Sit to/from Stand: 5 Sit to Stand (QC): 5 Weight Bearing Full Weight Bearing Full Weight Bearing Gait Training Does the Patient Walk?: Yes Gait (FIM): 5 Distance (FIM): 3=150 ft Distance: 200' Walk 10 feet (QC): 5 Walk 50 ft with 2 Turns(QC): 5 Walk 150 ft (QC): 5 Gait Level of Assist: 5 Gait Persons Needed: 1 Gait Assistive Device: FWW Exercises Seated Therapy Exercises: Ankle pumps, Long arc quads, Hip flexion, Kicking activity Seated Reps: 15 NuStep Minutes: 15 NuStep Workload: 5 Treatments Pt transfers from recliner to standing. Pt ambulates in hallway then uses NuStep for 15m at WL 5. Pt completes Seated EX in chair before ambulating again in hallway. Pt resting in room at end of tx with all needs met, call light next to pt. Assessment Current Status: Good Progress Pt tolerates tx well. Pt reports not being concerned with falling again. PT Short Term Goals Short Term Goals Time Frame: Dec 15, 2018 Transfers (B,C,W/C) (FIM): 5 (met) Gait (FIM): 5 (met) Distance (FIM): 3=150 ft PT Water Resources Business Segment Leader Goals Water Resources Business Segment Leader Goals PT Mcfp Goals Time Frame: Dec 26, 2018 Transfers (B,C,W/C) (FIM): 7 Sit to Lying (QC): 6 Lying-Sitting on Side/Bed(QC): 6 Sit to Stand (QC): 6 Rollin Roll Left to Right (QC): 6 Chair/Hry-qn-Qaadz Xfer(QC): 6 Car Transfer (QC): 6 Does the Patient Walk: Yes Gait (FIM): 6 Gait distance (FIM): 3=150 ft Walk 10 feet (QC): 6 Walk 10ft-Uneven Surface(QC): 6 Walk 50ft with 2 Turns (QC): 6 Walk 150 ft (QC): 6 Gait Assistive Device: FWW Does the Pt use WC or Scooter?: No Stairs (FIM): 5 # of Steps: 4 1 Step (curb) (QC): 6 4 Steps (QC): 6 12 Steps (QC): 88 Picking up an Object (QC): 88 PT Plan Problem List Problem List: Activity Tolerance, Functional Strength Treatment/Plan Treatment Plan: Continue Plan of Care Treatment Plan: Bed Mobility, Education, Functional Activity Kelechi, Functional Strength, Group Therapy, Gait, Safety, Therapeutic Exercise, Transfers Treatment Duration: Dec 26, 2018 Frequency: At least 5 of 7 days/Wk (IRF) Estimated Hrs Per Day: 1.5 hours per day Patient and/or Family Agrees t: Yes Safety Risks/Education Patient Education: Gait Training, Transfer Techniques, Correct Positioning, Safety Issues Teaching Recipient: Patient Teaching Methods: Discussion Response to Teaching: Verbalize Understanding Time/GCodes Time In: 900 Time Out: 945 Total Billed Treatment Time: 45 Total Billed Treatment 1, GT (15m), EX (20m) & FA (10m) SUNNY LUGO PTA Dec 16, 2018 09:46
[2018-12-16] MEDS: CALCIUM CARB + VIT D 600 MG (CALCARB + D) TAB PO SCH (09:52)
[2018-12-16] MEDS: MELOXICAM 7.5 MG (MOBIC) TABLET PO SCH (09:52)
[2018-12-16] MEDS: QUEtiapine 25 MG (SEROquel) TAB IMMEDIATE RELEASE PO SCH ×2 (09:52→21:40)
[2018-12-16] MEDS: ASPIRIN E.C. 81 MG (ECOTRIN) TAB PO SCH (09:53)
[2018-12-16] MEDS: buPROPion SR 150 MG (WELLBUTRIN SR) TAB PO SCH ×2 (09:53→21:39)
[2018-12-16] MEDS: GEMFIBROZIL 600 MG (LOPID) TAB PO SCH ×2 (09:53→21:40)
[2018-12-16] MEDS: ALPRAZolam 0.5 MG (XANAX) TAB PO SCH (09:53)
[2018-12-16] MEDS: PANTOPRAZOLE 40 MG (PROTONIX) TAB PO SCH (09:53)
[2018-12-16] MEDS: GABAPENTIN 600 MG (NEURONTIN) TAB PO SCH ×3 (09:53→21:40)
[2018-12-16] MEDS: SENNA W/DOCUSATE (SENOKOT S) TABLET PO SCH ×2 (09:53→22:11)
--- NOTE | 2018-12-16 11:29 | Occupational Ther Daily Note ---
OT Current Status-Daily Note Subjective Pt upright in recliner at start of session, denied pain. Pt agreed to OT tx. At the end of the session, pt reported she was "tired" and ready to rest this afternoon. Mental Status/Objective Patient Orientation: Normal For Age Therapy Code Descriptions/Definitions Functional [place] Measure: 0=Not Assessed/NA 4=Minimal Assistance 1=Total Assistance 5=Supervision or Setup 2=Maximal Assistance 6=Modified [place] 3=Moderate Assistance 7=Complete [place] ADL-Treatment Therapy Code Descriptions/Definitions Functional [place] Measure: 0=Not Assessed/NA 4=Minimal Assistance 1=Total Assistance 5=Supervision or Setup 2=Maximal Assistance 6=Modified [place] 3=Moderate Assistance 7=Complete [place] Therapy Quality Codes: 6 Independent with activity with or without an assistive device 5 Patient requires set up or clean up by helper. Patient completes activity by themselves 4 Supervision or touching assist (CGA). [place] provide cues , steadying assist 3 The helper provides less than half the effort to complete the activity 2 The helper provides more than half the effort to complete the activity 1 Dependent. The helper does all the effort to complete an activity 7 Patient refused to complete or attempt activity 9 The patient did not perform the activity before the current illness or injury 88 Not attempted due to Medical conditions or safety concerns Transfers (B, C, W/C) (FIM): 5 (SBA for safety/balance) Other Treatment OT educated pt on using a bath bench vs shower chair after d/c. OT recommended to pt use of a bath bench upon d/c secondary to pt's occasional loss of balance noted in previous sessions. Pt ambulated to therapy gym using FWW. In order to increase endurance and sitting balance during functional tasks pt completed the following activity: OT placed 11 beanbags on floor on the R side of pt, pt bent down to grab beanbag and then handed it to OT seated in front of pt. Pt repeated with the rest of the beanbags, then repeated the task with the bags placed on the floor to the L of pt. Pt stated she did not feel dizzy during task, and did not note any loss of balance. OT then held beanbags just out of arms reach in multiple plans, allowing pt to shift weight during reaching, pt completed 2 reps of this activity reporting no LOB. Pt ambulated back to her room. Post OT session, pt seated in recliner, call light and phone in reach and all needs met. Education OT Patient Education: Correct positioning, Energy conservation, Progress toward Goal/Update tx plan, Purpose of tx/functional activities, Transfer techniques Teaching Recipient: Patient Teaching Methods: Demonstration, Discussion Response to Teaching: Verbalize Understanding, Return Demonstration OT Short Term Goals Short Term Goals Transfers (B,C,W/C) (FIM): 5 (met) 1=Demonstrate adherence to instructed precautions during ADL tasks. 2=Patient will verbalize/demonstrate understanding of assistive devices/modifications for ADL. 3=Patient will improve strength/tolerance for activity to enable patient to perform ADL's. OT General Machine Operator Goals General Machine Operator Goals Time Frame: Dec 22, 2018 Eating (FIM): 6 Eating (QC): 6 Groomin Oral Hygiene (QC): 6 Bathing(FIM): 5 Shower/Bathe Self (QC): 4 Upper Body Dressing(FIM): 6 Upper Body Dressing (QC): 6 Lower Body Dressing(FIM): 6 Lower Body Dressing (QC): 6 On/Off Footwear (QC): 6 Toileting(FIM): 6 Toileting Hygiene (QC): 6 Transfers (B,C,W/C) (FIM): 6 Toilet/Commode Transfer(FIM): 6 Toilet/Commode Transfer (QC): 6 Shower Transfer(FIM): 5 Additional Goals: 1-Demonstrate ADL Tasks, 2-Verbalize Understanding, 3- ImproveStrength/[place] 1=Demonstrate adherence to instructed precautions during ADL tasks. 2=Patient will verbalize/demonstrate understanding of assistive devices/modifications for ADL. 3=Patient will improve strength/tolerance for activity to enable patient to perform ADL's. OT Education/Plan Problem List/Assessment Assessment: Decreased Activ Tolerance, Decreased UE Strength, Impaired Funct Balance, Impaired I ADL's, Impaired Self-Care Skills Discharge Recommendations Plan/Recommendations: Continue POC Equpiment Recommendations-D/C: Extended Bath Bench Treatment Plan/Plan of Care Treatment,Training & Education: Yes Patient would benefit from OT for education, treatment and training to promote independence in ADL's, mobility, safety and/or upper extremity function for ADL's. Plan of Care: ADL Retraining, Functional Mobility, Group Exercise/Act as Ind, UE Funct Exercise/Act Treatment Duration: Oct 21, 2018 Frequency: At least 5 of 7 days/Wk (IRF) Estimated Hrs Per Day: 1.5 hours per day Agreement: Yes Rehab Potential: Good Time/GCodes Start Time: 10:30 Stop Time: 11:00 Total Time Billed (hr/min): 30 Billed Treatment Time 1, FA 2 X30min LIZETTE GONZALEZ OT Dec 16, 2018 11:29
--- NOTE | 2018-12-16 13:59 | Physical Therapy Daily Note ---
PT Daily Note-Current Subjective Pt sitting at EOB upon arrival. Pt agrees to PT, reporting wanting to sleep after afternoon PT. Pain Location: No Pain Reported Mental Status Patient Orientation: Person, Place, Situation Transfers Therapy Code Descriptions/Definitions Functional [place] Measure: 0=Not Assessed/NA 4=Minimal Assistance 1=Total Assistance 5=Supervision or Setup 2=Maximal Assistance 6=Modified [place] 3=Moderate Assistance 7=Complete [place] Therapy Quality Codes: 6 Independent with activity with or without an assistive device 5 Patient requires set up or clean up by helper. Patient completes activity by themselves 4 Supervision or touching assist (CGA). [place] provide cues , steadying assist 3 The helper provides less than half the effort to complete the activity 2 The helper provides more than half the effort to complete the activity 1 Dependent. The helper does all the effort to complete an activity 7 Patient refused to complete or attempt activity 9 The patient did not perform the activity before the current illness or injury 88 Not attempted due to Medical conditions or safety concerns Scootin Supine to/from Sit: 5 Sit to Lying (QC): 5 Weight Bearing Full Weight Bearing Full Weight Bearing Exercises Supine Ex: Ankle pumps, Quad Set, Glut sets, Heel Slides, Straight leg raise, Hip abd/add Supine Reps: 15 (2 sets) Treatments Pt completes Supine Ex in bed with a few RB. Pt resting supine in bed with all needs met at end of tx, call light next to pt. Assessment Current Status: Good Progress Pt tolerates tx well. PT Short Term Goals Short Term Goals Time Frame: Dec 15, 2018 Transfers (B,C,W/C) (FIM): 5 (met) Gait (FIM): 5 (met) Distance (FIM): 3=150 ft PT Residential Goals Residential Goals PT Residential Goals Time Frame: Dec 26, 2018 Transfers (B,C,W/C) (FIM): 7 Sit to Lying (QC): 6 Lying-Sitting on Side/Bed(QC): 6 Sit to Stand (QC): 6 Rollin Roll Left to Right (QC): 6 Chair/Wma-yf-Cswxb Xfer(QC): 6 Car Transfer (QC): 6 Does the Patient Walk: Yes Gait (FIM): 6 Gait distance (FIM): 3=150 ft Walk 10 feet (QC): 6 Walk 10ft-Uneven Surface(QC): 6 Walk 50ft with 2 Turns (QC): 6 Walk 150 ft (QC): 6 Gait Assistive Device: FWW Does the Pt use WC or Scooter?: No Stairs (FIM): 5 # of Steps: 4 1 Step (curb) (QC): 6 4 Steps (QC): 6 12 Steps (QC): 88 Picking up an Object (QC): 88 PT Plan Problem List Problem List: Activity Tolerance, Functional Strength Treatment/Plan Treatment Plan: Continue Plan of Care Treatment Plan: Bed Mobility, Education, Functional Activity [place], Functional Strength, Group Therapy, Gait, Safety, Therapeutic Exercise, Transfers Treatment Duration: Dec 26, 2018 Frequency: At least 5 of 7 days/Wk (IRF) Estimated Hrs Per Day: 1.5 hours per day Patient and/or Family Agrees t: Yes Safety Risks/Education Patient Education: Correct Positioning, Safety Issues Teaching Recipient: Patient Teaching Methods: Discussion Response to Teaching: Verbalize Understanding Time/GCodes Time In: 1330 Time Out: 1400 Total Billed Treatment Time: 30 Total Billed Treatment 1, FA (10m) & EX (20m) SUNNY LUGO STRIP STAMP STRAIGHTENER Dec 16, 2018 13:59
--- NOTE | 2018-12-16 15:59 | Speech Therapy Daily Note ---
Speech Daily Progress Note Subjective Date Seen by Provider: Dec 16, 2018 Time Seen by Provider: 00:30 The patient states she will not be moving in to the assisted living due to it costing too much. Objective The patient completed problem solving tasks with sequencing cards at 90% with minimal verbal and/or verbal cues. Assessment Assessment Current Status: Good Progress Treatment Plan Continue Plan of Care Communication Comprehension: 5 Expression: 5 Social Cognition Social Interaction: 7 Problem Solvin Memory: 5 Speech Short Term Goals Short Term Goals Short Term Goals 1) The patient will complete memory tasks related to her daily needs with 90% or greater. 2) The patient will complete problem solving tasks related to her daily needs with 90% or greater. 3) The patient will complete safety tasks related to her daily needs with 90% or greater. Speech Correction Goals Correction Goals The patient will improve cognitive-communication necessary for safety and daily living tasks with minimal assist. Speech-Plan Patient/Family Goals Patient/Family Goals: The patient plans on returning to her home or in to a SNF post rehab. Treatment Plan Speech Therapy Treatment Plan: Continue Plan of Care The patient has made good progress with meeting ST goals. Treatment Duration: Dec 19, 2018 Frequency: 5 times per week Estimated Hrs Per Day: .5 hour per day Rehab Potential: Good Barriers to Learning: Patient has had mild cognitive deficits, however these are resolving very well. Pt/Family Agrees to Plan: Yes Safety Risks/Education Teaching Recipient: Patient Teaching Methods: Demonstration, Discussion Response to Teaching: Verbalize Understanding, Return Demonstration Education Topics Provided: Continued safety upon discharge. Time Speech Therapy Time In: 11:00 Speech Therapy Time Out: 11:30 Total Billed Time: 30 Billed Treatment Time 1SHAYLA BETHANIA ST Dec 16, 2018 15:58
[2018-12-16] MEDS: amLODIPine 5 MG (NORVASC) TAB PO SCH (17:29)
[2018-12-16 17:51] VITALS: BP 175/83
[2018-12-16] MEDS: ALPRAZolam 1 MG (XANAX) TAB PO SCH (21:39)
[2018-12-16] MEDS: POLYETHYLENE GLYCOL 17 GM (MIRALAX) PACK PO SCH (22:11)
[2018-12-17 05:15] VITALS: BP 111/71
[2018-12-17] MEDS: inSUlin ASPART (NovoLOG) 1 UNIT/0.01 ML (CHARGE PER UNIT) SC SCH ×4 (06:33→21:38)
[2018-12-17] MEDS: MECLIZINE 25 MG (ANTIVERT) TAB PO PRN (06:34)
[2018-12-17] MEDS: GLIMEPIRIDE 4 MG (AMARYL) TAB PO SCH ×2 (06:34→18:15)
[2018-12-17] MEDS: metFORMIN XR 500 MG (GLUCOPHAGE XR) TAB PO SCH ×2 (06:34→18:15)
--- NOTE | 2018-12-17 08:24 | Occupational Ther Daily Note ---
OT Current Status-Daily Note Subjective Pt sitting EOB at start of session, agreeable to OT tx this AM. Pt denied pain throughout session. Mental Status/Objective Patient Orientation: Normal For Age Therapy Code Descriptions/Definitions Functional [place] Measure: 0=Not Assessed/NA 4=Minimal Assistance 1=Total Assistance 5=Supervision or Setup 2=Maximal Assistance 6=Modified [place] 3=Moderate Assistance 7=Complete [place] ADL-Treatment Therapy Code Descriptions/Definitions Functional [place] Measure: 0=Not Assessed/NA 4=Minimal Assistance 1=Total Assistance 5=Supervision or Setup 2=Maximal Assistance 6=Modified [place] 3=Moderate Assistance 7=Complete [place] Therapy Quality Codes: 6 Independent with activity with or without an assistive device 5 Patient requires set up or clean up by helper. Patient completes activity by themselves 4 Supervision or touching assist (CGA). [place] provide cues , steadying assist 3 The helper provides less than half the effort to complete the activity 2 The helper provides more than half the effort to complete the activity 1 Dependent. The helper does all the effort to complete an activity 7 Patient refused to complete or attempt activity 9 The patient did not perform the activity before the current illness or injury 88 Not attempted due to Medical conditions or safety concerns Grooming (FIM): 6 (Mod I, standing at sink with FWW, no LOB noted. Pt brushed hair/teeth, & washed face/hands.) Oral Hygiene (QC): 6 Transfers (B, C, W/C) (FIM): 5 (SBA) Toilet/Commode Transfer (FIM): 5 (SBA for safety/balance secondary to pt hitting toilet with her foot during transfer. Pt was able to regain her balance without assistance.) Toilet Transfer (QC): 4 Other Treatment Pt ambulated to therapy gym with FWW. In order to increase UE strength/endurance and fine motor strength, pt completed the followin) arm bike X15 min, mod resistance 2) Pegboard, pt placed X82 pegs in 11 mins with 2lb wrist cuffs BUE, alternating R/L hand. Pt stated the weight caused her L shoulder to hurt. OT removed L wrist cuff & pt finished placing remainder of 100 pegs alternating hands. Pt removed X100 pegs, 2lb wrist cuff on RUE, alternating hands. Total time to place/remove pegs: 16 min, 8 seconds. Pt ambulated to room using FWW, completed grooming at sink, and nursing gave pt meds. Post OT session, pt seated upright in recliner, call light and phone in reach and all needs met. Education OT Patient Education: Correct positioning, Energy conservation, Exercise program, Progress toward Goal/Update tx plan, Purpose of tx/functional activities, Transfer techniques Teaching Recipient: Patient Teaching Methods: Demonstration, Discussion Response to Teaching: Verbalize Understanding, Return Demonstration OT Short Term Goals Short Term Goals Transfers (B,C,W/C) (FIM): 5 (met) 1=Demonstrate adherence to instructed precautions during ADL tasks. 2=Patient will verbalize/demonstrate understanding of assistive devices/modifications for ADL. 3=Patient will improve strength/tolerance for activity to enable patient to perform ADL's. OT Mechanic Helper Goals [facility] Goals Time Frame: Dec 22, 2018 Eating (FIM): 6 Eating (QC): 6 Groomin Oral Hygiene (QC): 6 Bathing(FIM): 5 Shower/Bathe Self (QC): 4 Upper Body Dressing(FIM): 6 Upper Body Dressing (QC): 6 Lower Body Dressing(FIM): 6 Lower Body Dressing (QC): 6 On/Off Footwear (QC): 6 Toileting(FIM): 6 Toileting Hygiene (QC): 6 Transfers (B,C,W/C) (FIM): 6 Toilet/Commode Transfer(FIM): 6 Toilet/Commode Transfer (QC): 6 Shower Transfer(FIM): 5 Additional Goals: 1-Demonstrate ADL Tasks, 2-Verbalize Understanding, 3- ImproveStrength/[place] 1=Demonstrate adherence to instructed precautions during ADL tasks. 2=Patient will verbalize/demonstrate understanding of assistive devices/modifications for ADL. 3=Patient will improve strength/tolerance for activity to enable patient to perform ADL's. OT Education/Plan Problem List/Assessment Assessment: Decreased Activ Tolerance, Decreased UE Strength, Impaired Funct Balance, Impaired I ADL's, Impaired Self-Care Skills Discharge Recommendations Plan/Recommendations: Continue POC Treatment Plan/Plan of Care Treatment,Training & Education: Yes Patient would benefit from OT for education, treatment and training to promote independence in ADL's, mobility, safety and/or upper extremity function for ADL's. Plan of Care: ADL Retraining, Functional Mobility, Group Exercise/Act as Ind, UE Funct Exercise/Act Treatment Duration: Oct 21, 2018 Frequency: At least 5 of 7 days/Wk (IRF) Estimated Hrs Per Day: 1.5 hours per day Agreement: Yes Rehab Potential: Good Time/GCodes Start Time: 07:55 Stop Time: 08:55 Total Time Billed (hr/min): 60 Billed Treatment Time 1, EX X15min, FA 2 X30min, ADL X15min LIZETTE GONZALEZ OT Dec 17, 2018 08:24
[2018-12-17] MEDS: buPROPion SR 150 MG (WELLBUTRIN SR) TAB PO SCH ×2 (08:46→20:15)
[2018-12-17] MEDS: SENNA W/DOCUSATE (SENOKOT S) TABLET PO SCH ×2 (08:46→20:16)
[2018-12-17] MEDS: QUEtiapine 25 MG (SEROquel) TAB IMMEDIATE RELEASE PO SCH ×2 (08:46→20:15)
[2018-12-17] MEDS: MELOXICAM 7.5 MG (MOBIC) TABLET PO SCH (08:46)
[2018-12-17] MEDS: PANTOPRAZOLE 40 MG (PROTONIX) TAB PO SCH (08:46)
[2018-12-17] MEDS: ASPIRIN E.C. 81 MG (ECOTRIN) TAB PO SCH (08:46)
[2018-12-17] MEDS: ALPRAZolam 0.5 MG (XANAX) TAB PO SCH (08:46)
[2018-12-17] MEDS: GABAPENTIN 600 MG (NEURONTIN) TAB PO SCH ×3 (08:47→20:15)
[2018-12-17] MEDS: CALCIUM CARB + VIT D 600 MG (CALCARB + D) TAB PO SCH (08:47)
[2018-12-17] MEDS: GEMFIBROZIL 600 MG (LOPID) TAB PO SCH ×2 (08:47→20:15)
--- NOTE | 2018-12-17 09:53 | PM&R Progress Note ---
Subjective HPI/CC On Admission Date Seen by Provider: Dec 17, 2018 Time Seen by Provider: 09:00 CC: Frequent Falls Ms. Chou is a 68 y/o WF with PMH of HTN, DM, hyperlipidemia and ALTON presents with a chief complaint of frequent falls. 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 She states she starts to get dizzy and her legs get weak causing her to fall. She denies loss of consciousness, but describes the room spinning prior to each episode. She presented to the ED after her last fall when she was found by her son and was unable to get her up. She denies urinary urgency or burning, fever, chills. She is occasionally incontinent of stool, and has been for the previous few months. Prior to the last week, she was independent with all ADL's and without falls. She has been to the ED for falls over the last couple of weeks for multiple falls. She was counselled to use a FWW, but has not been compliant. From social context, she lives alone in a 2nd floor, carpeted apartment. She has no stairs to navigate as there is an elevator to the second floor. Her PCP is Dr. Benavides. She has multiple prescriptions which could be exacerbating her symptoms. She has, in previous admissions, been open to the idea of assisted living. Social hx: denies alcohol use, smokes 1ppd for many years, and denies etoh usage PSH: B/l carotid endarterectomy, bso/edith Note per Balbir Richardson [facility] CC: Multiple falls with debility HPI: This is a 68yoWF who previously lived at home who was brought to the ER on Saturday night after multiple falls requiring multiple ER visits last week who suffered facial injuries and ecchymosis B/L in the most recent fall when the family found her down who has a PMH of severe neuropathy and diabetic complications along with peripheral vascular disease s/p B/L CEA managed by Dr. Springer and Dr. Benavides who presents to inpatient rehab in need of intensive t herapy to prevent falls which could harm her further and has reluctantly agreed to go to assisted living because she really is unsafe to return home and live independently. At this current time pt feels well, her bowels are moving, urinating well, acute renal failure with creatinine of 1.6 improved with IV fluids given over night on Saturday night so I heplocked those yesterday and the rest of her labs look really good. At this current time pt is ready for rehab and is a poor historian with her other medical issues so will try to grab details from PCP office and pharmacy. Subjective/Events-last exam Sugars are okay but brittle Improved overall Meclizine given twice a day Left hand wound appears to be much improved PT and OT standby assist Assisted living with pending Medicaid but it appears she will need skilled care with a intermediate prior to transferring to [facility] and that is what the family is interested in. 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 Musculoskeletal: foot pain Objective Exam Vital Signs Vital Signs Date Time Temp Pulse Resp B/P (MAP) Pulse Ox O2 Delivery O2 Flow Rate FiO2 12/17/18 18:00 97.9 95 18 178/84 (115) 98 Room Air Capillary Refill : General Appearance: No Apparent Distress, WD/WN, Chronically ill, Obese HEENT: PERRL/EOMI, Normal ENT Inspection, Pharynx Normal, Moist Mucous Membranes, Other (facial ecchymosis) Neck: Full Range of Motion, Normal Inspection, Non Tender, Supple Respiratory: Chest Non Tender, Lungs Clear, Normal Breath Sounds, No Accessory Muscle Use, No Respiratory Distress Cardiovascular: Regular Rate, Rhythm, No Edema, No Gallop, No JVD, No Murmur Gastrointestinal: Normal Bowel Sounds, No Organomegaly, No Pulsatile Mass, Non Tender, Soft Back: Normal Inspection, No CVA Tenderness, No Vertebral Tenderness Extremity: Normal Capillary Refill, Normal Inspection, Normal Range of Motion, Non Tender, No Calf Tenderness, No Pedal Edema Neurologic/Psychiatric: Alert, Oriented x3, No Motor/Sensory Deficits, Normal Mood/Affect, Disoriented (subtle) Skin: Normal Color, Warm/Dry Lymphatic: No Adenopathy Results/Procedures Lab Patient resulted labs reviewed. FIM Transfers Therapy Code Descriptions/Definitions Functional Sanders Measure: 0=Not Assessed/NA 4=Minimal Assistance 1=Total Assistance 5=Supervision or Setup 2=Maximal Assistance 6=Modified Sanders 3=Moderate Assistance 7=Complete Sanders Therapy Quality Codes: 6 Independent with activity with or without an assistive device 5 Patient requires set up or clean up by helper. Patient completes activity by themselves 4 Supervision or touching assist (CGA). [place] provide cues , steadying assist 3 The helper provides less than half the effort to complete the activity 2 The helper provides more than half the effort to complete the activity 1 Dependent. The helper does all the effort to complete an activity 7 Patient refused to complete or attempt activity 9 The patient did not perform the activity before the current illness or injury 88 Not attempted due to Medical conditions or safety concerns Transfers (B, C, W/C) (FIM): 5 (SBA) Scootin Rollin Roll Left to Right (QC): 4 Supine to/from Sit: 5 Sit to/from Stand: 5 Sit to Lying (QC): 5 Sit to Stand (QC): 5 Chair/Pti-lp-Meggw Xfer(QC): 4 Bed to/from Chair: 6 Car Transfer (QC): 6 Gait Training Does the Patient Walk?: Yes Gait (FIM): 5 Distance (FIM): 3=150 ft Distance: 200' Walk 10 feet (QC): 5 Walk 50 ft with 2 Turns(QC): 5 Walk 150 ft (QC): 5 Walking 10ft/uneven surface-QC: 3 Gait Level of Assist: 5 Gait Persons Needed: 1 Gait Assistive Device: FWW Wheelchair Training Does the Pt Use a Wheelchair?: No Stair Training Stair Training: Handrails/: 2 handrails Stairs (FIM): 5 #of Steps: 4 1 Step (curb) (QC): 3 4 Steps (QC): 88 Stairs: Pattern: Reciprocal Level of Assist: 5 Balance Picking up an Object (QC): 88 Mental Status/Objective Comprehension: 5 Expression: 5 Social Interaction: 7 Problem Solvin Memory: 5 ADL-Treatment Feedin (Pt able to open containers, open a bag of chips, and drink I.) Eating (QC): 6 Groomin (Mod I, standing at sink with FWW, no LOB noted. Pt brushed hair/teeth, & washed face/hands.) Oral Hygiene (QC): 6 Bathin (SBA while standing to wash buttocks. Pt able to use GB to sit to stand from NC) Bathing Location: L Arm, R Arm, L Upper Leg, R Upper Leg, L Lower Leg (including foot), R Lower Leg (including foot), Chest, Abdomen, Buttocks, Perineal Area Shower/Bathe Self (QC): 4 Upper Extremity Dressin (set up. Pt able to don pullover shirt and bra.) Upper Body Dressing (QC): 5 Lower Extremity Dressin (SBA during stand to pull up pants/underpants, and while sitting and bending down to put socks/shoes on.) Lower Body Dressing (QC): 4 On/Off Footwear (QC): 4 (SBA secondary to pt's sitting balance while bending down.) Toiletin (mod I using FWW and grab bars. Pt completed 3/3 parts) Toileting Hygiene (QC): 6 Toilet/Commode Transfer: 5 (SBA for safety/balance secondary to pt hitting toilet with her foot during transfer. Pt was able to regain her balance without assistance.) Toilet Transfer (QC): 4 Shower: 4 (SBA) Assessment/Plan Assessment and Plan Assess & Plan/Chief Complaint Assessment: Fall Facial trauma Neuropathy Chronic pain Anxiety CAD PVD HTN Dementia Chronic dizziness Plan: IRF protocol NHP Home meds Increase insulin with SSI but decrease long acting to minimize night time hypog lycemia Dramatic improvement since admit (1) Fall Status: Acute Qualifiers: Encounter type: subsequent encounter Qualified Codes: W19.XXXD - Unspecified fall, subsequent encounter (2) Physical deconditioning Status: Acute (3) Debility Status: Acute (4) Diabetes mellitus Status: Chronic Qualifiers: Diabetes mellitus type: type 2 Diabetes mellitus correction insulin use: without buttermilk drier operator use Diabetes mellitus complication status: with other specified complication Qualified Codes: E11.69 - Type 2 diabetes mellitus with other specified complication (5) CAD (coronary artery disease) Status: Chronic Qualifiers: Coronary Disease-Associated Artery/Lesion type: [place] artery [place] vs. transplanted heart: [place] heart Associated angina: without angina Qualified Codes: I25.10 - Atherosclerotic heart disease of [place] coronary artery without angina pectoris (6) Hyperlipidemia Status: Chronic Qualifiers: Hyperlipidemia type: mixed hyperlipidemia Qualified Codes: E78.2 - Mixed hyperlipidemia (7) Acute renal insufficiency Status: Acute (8) Neuropathy Status: Chronic (9) PVD (peripheral vascular disease) Status: Chronic (10) Hypertension Status: Chronic Qualifiers: Hypertension type: essential hypertension Qualified Codes: I10 - Essential (primary) hypertension (11) Facial trauma Status: Acute Qualifiers: Encounter type: subsequent encounter Qualified Codes: S09.93XD - Unspecified injury of face, subsequent encounter (12) Renal failure (ARF), acute on chronic Status: Acute Qualifiers: Acute renal failure type: unspecified (13) Leukocytosis Status: Acute Qualifiers: Leukocytosis type: leukemoid reaction Qualified Codes: D72.823 - Leukemoid reaction (14) H/O carotid endarterectomy Status: Chronic GUADALUPE AUSTIN DO Dec 17, 2018 09:53
--- NOTE | 2018-12-17 10:59 | Physical Therapy Daily Note ---
PT Daily Note-Current Subjective Pt sitting in recliner upon arrival. Pt agrees to PT. Pain Location: No Pain Reported Mental Status Patient Orientation: Person, Place, Situation Transfers Therapy Code Descriptions/Definitions Functional Rabun Measure: 0=Not Assessed/NA 4=Minimal Assistance 1=Total Assistance 5=Supervision or Setup 2=Maximal Assistance 6=Modified [place] 3=Moderate Assistance 7=Complete [place] Therapy Quality Codes: 6 Independent with activity with or without an assistive device 5 Patient requires set up or clean up by helper. Patient completes activity by themselves 4 Supervision or touching assist (CGA). [place] provide cues , steadying assist 3 The helper provides less than half the effort to complete the activity 2 The helper provides more than half the effort to complete the activity 1 Dependent. The helper does all the effort to complete an activity 7 Patient refused to complete or attempt activity 9 The patient did not perform the activity before the current illness or injury 88 Not attempted due to Medical conditions or safety concerns Scootin Sit to/from Stand: 5 Sit to Stand (QC): 5 Weight Bearing Full Weight Bearing Full Weight Bearing Gait Training Does the Patient Walk?: Yes Gait (FIM): 5 Distance (FIM): 3=150 ft Distance: 200' Walk 10 feet (QC): 5 Walk 50 ft with 2 Turns(QC): 5 Walk 150 ft (QC): 5 Gait Level of Assist: 5 Gait Persons Needed: 1 Gait Assistive Device: FWW Pt sometimes need VC to remind pt to stay w/in FWW. Wheelchair Training Does the Pt Use a Wheelchair?: No Stair Training Stair Training: Handrails/: 1 handrail #of Steps: 8 1 Step (curb) (QC): 5 4 Steps (QC): 5 Stairs: Pattern: Step to Exercises NuStep Minutes: 15 NuStep Workload: 6 Treatments Pt transfers from recliner to standing then ambulates in hallway. Pt uses NuStep for 15m at WL 6 then takes short RB. Pt completes 2 sets of 4 stairs before ambulating in hallway. Pt uses restroom then rests in recliner at end of tx, all needs met including call light next to pt. Assessment Current Status: Good Progress Pt needs VC for safety reminders for walking w/in FWW as well as not leaving FWW to side when transferring. PT Short Term Goals Short Term Goals Time Frame: Dec 15, 2018 Transfers (B,C,W/C) (FIM): 5 (met) Gait (FIM): 5 (met) Distance (FIM): 3=150 ft PT Residential Goals Residential Goals PT Residential Goals Time Frame: Dec 26, 2018 Transfers (B,C,W/C) (FIM): 7 Sit to Lying (QC): 6 Lying-Sitting on Side/Bed(QC): 6 Sit to Stand (QC): 6 Rollin Roll Left to Right (QC): 6 Chair/Egi-tk-[place] Xfer(QC): 6 Car Transfer (QC): 6 Does the Patient Walk: Yes Gait (FIM): 6 Gait distance (FIM): 3=150 ft Walk 10 feet (QC): 6 Walk 10ft-Uneven Surface(QC): 6 Walk 50ft with 2 Turns (QC): 6 Walk 150 ft (QC): 6 Gait Assistive Device: FWW Does the Pt use WC or Scooter?: No Stairs (FIM): 5 # of Steps: 4 1 Step (curb) (QC): 6 4 Steps (QC): 6 12 Steps (QC): 88 Picking up an Object (QC): 88 PT Plan Problem List Problem List: Activity Tolerance, Safety, Gait, Transfer Treatment/Plan Treatment Plan: Continue Plan of Care Treatment Plan: Bed Mobility, Education, Functional Activity [place], Functional Strength, Group Therapy, Gait, Safety, Therapeutic Exercise, Transfers Treatment Duration: Dec 26, 2018 Frequency: At least 5 of 7 days/Wk (IRF) Estimated Hrs Per Day: 1.5 hours per day Patient and/or Family Agrees t: Yes Safety Risks/Education Patient Education: Gait Training, Transfer Techniques, Correct Positioning, Safety Issues Teaching Recipient: Patient Teaching Methods: Discussion Response to Teaching: Verbalize Understanding Time/GCodes Time In: 900 Time Out: 1000 Total Billed Treatment Time: 60 Total Billed Treatment 1, GT (15m), FA x2 (30m) & EX (15m) SUNNY LUGO BATTERY SERVICE TECHNICIAN Dec 17, 2018 10:59
--- NOTE | 2018-12-17 12:31 | Speech Therapy Daily Note ---
Speech Daily Progress Note Subjective Date Seen by Provider: Dec 17, 2018 Time Seen by Provider: 00:30 The patient was sitting in her chair resting and watching television when I entered her room. Objective The patient completed safety awareness tasks presented verbally "What would you do if....?" at 90% with min verbal cues. Assessment Assessment Current Status: Good Progress Treatment Plan Continue Plan of Care Communication Comprehension: 5 Expression: 5 Social Cognition Social Interaction: 7 Problem Solvin Memory: 5 Speech Short Term Goals Short Term Goals Short Term Goals 1) The patient will complete memory tasks related to her daily needs with 90% or greater. 2) The patient will complete problem solving tasks related to her daily needs with 90% or greater. 3) The patient will complete safety tasks related to her daily needs with 90% or greater. Speech Prison Goals Abstract Maker Goals The patient will improve cognitive-communication necessary for safety and daily living tasks with minimal assist. Speech-Plan Patient/Family Goals Patient/Family Goals: The patient is now planning on returning to her home. She voiced she hopes she has some in home assistance. Treatment Plan Speech Therapy Treatment Plan: Continue Plan of Care The patient has progressed well as a result of skilled ST services. Treatment Duration: Dec 19, 2018 Frequency: 5 times per week Estimated Hrs Per Day: .5 hour per day Rehab Potential: Good Barriers to Learning: Patient has mild cognitive deficits, however these are resolving as a result of skilled intervention. Pt/Family Agrees to Plan: Yes Safety Risks/Education Teaching Recipient: Patient Teaching Methods: Demonstration, Discussion Response to Teaching: Verbalize Understanding, Return Demonstration Education Topics Provided: Continued safety within her room and upon discharge Time Speech Therapy Time In: 10:00 Speech Therapy Time Out: 10:30 Total Billed Time: 30 Billed Treatment Time 1, ANGY Dumont Dec 17, 2018 12:31
--- NOTE | 2018-12-17 14:06 | Therapy Group Daily Note ---
Therapy Daily Group Note Patient Education Topic Home Safety, Fall Prevention, Home Safety Session Ratio (pt:therapist): 4:1 Goal of Session: Education on ARU Expectations, Home Safety Strategies, Use of Adaptive Equipment Goal Met for this Session: Yes Pt Benefit of Group: Contributions to Others, F/U Use of Strategies @Home, Increased Functional Safety, Improved Cognition, Recognition of Peers, Socialization Other/Notes Pt ambulated to [facility] area for OT group. Group consisted of introductions (name, place living, and favorite invention), socialization, use of AE/ DME, and ARU expectations. Pt introduced self appropriately and actively listened to peers. Pt acknowledged understanding of educational topics of AE/ DME within the house including: shower chair vs. shower bench, buildup handle, basket for RW, rocker knife, leg hospice clinical marketer, and maintaining a personal emergency card. pt engaged in session by listing example of how to personally use AE within own daily live. After therapy, pt lying in bed with call light/phone in reach. All needs met in room. Start Time: 12:40 Stop Time: 13:50 Total Billed Treatment GRP 70 minutes OLIVE CASH OT Dec 17, 2018 14:06
--- NOTE | 2018-12-17 16:32 | NUR ---
FILLING SEPARATOR met with patient to review team conference summary. Patient is performing all activities with standby assistance; however, therapy does not believe patient will reach mod I due to continual dizzy episodes. FILLING SEPARATOR spoke with patient and family regarding the potential for patient to return home with frequent visitors; however, patient and family request to complete a 20 day skilled stay at [facility]. FILLING SEPARATOR sent updated clinical information to facility, facility is in agreement with accepting patient tomorrow and can provide transportation at 1 p.m. tomorrow. FILLING SEPARATOR reviewed IMM and patient choice letter. FILLING SEPARATOR also completed a [facility] Assessment. Assessment was faxed to [facility] and [facility] Patient is hopeful to receive additional therapies at [facility] in order to return home upon completing the 20 day. Please see discharge summary for further information.
[2018-12-17 18:00] VITALS: BP 178/84
[2018-12-17] MEDS: amLODIPine 5 MG (NORVASC) TAB PO SCH (18:15)
[2018-12-17] MEDS: ALPRAZolam 1 MG (XANAX) TAB PO SCH (20:15)
[2018-12-17] MEDS: POLYETHYLENE GLYCOL 17 GM (MIRALAX) PACK PO SCH (21:43)
[2018-12-18] MEDS: inSUlin ASPART (NovoLOG) 1 UNIT/0.01 ML (CHARGE PER UNIT) SC SCH ×2 (05:48→11:26)
[2018-12-18 06:20] VITALS: BP 138/72
[2018-12-18] MEDS: GLIMEPIRIDE 4 MG (AMARYL) TAB PO SCH (06:24)
[2018-12-18] MEDS: MECLIZINE 25 MG (ANTIVERT) TAB PO PRN (06:25)
[2018-12-18] MEDS: metFORMIN XR 500 MG (GLUCOPHAGE XR) TAB PO SCH (06:25)
--- NOTE | 2018-12-18 08:23 | Wound Care Assessment ---
Wound Care Assessment Date Seen by Provider: Dec 18, 2018 Time Seen by Provider: 07:45 Chief Complaint Skin tear R hand HPI The patient is a 68 year old female with skin in a skin tear of the R hand after a fall. There is no sign of infection. The skin is trimmed. Dressed with Xeroform. 12/18/18 Interval Note: Wound stable and healing with foam dressing. Will sign off. Past Medical History: Admits Diabetes Type II, Admits Heart Disease Smoking Status: Former Smoker Recreational Drug Use: No Alcohol Use: Denies Use Review of Systems Musculoskeletal: No: hand pain Exam Vital Signs Date Time Temp Pulse Resp B/P (MAP) Pulse Ox O2 Delivery O2 Flow Rate FiO2 12/18/18 06:20 97.8 106 18 138/72 (94) 96 Room Air Capillary Refill : Extremities: other (R hand -- 1.2 x 1.1 x 0.2 cm, 100% eschar, no drainage.) Results Laboratory Tests 12/17/18 11:25: Glucometer 322H 12/17/18 16:45: Glucometer 128H 12/17/18 21:23: Glucometer 321H 12/18/18 05:25: Glucometer 176H Assessment/Plan/Dx 1. Skin tear R hand. Plan: Wound is stable with foam dressing. Will sign off. KORTNEY HOLDER MD Dec 18, 2018 08:23
--- NOTE | 2018-12-18 08:31 | Occupational Ther Daily Note ---
OT Current Status-Daily Note Subjective Pt seated EOB at start of session, agreeable to OT tx this AM. Pt stated she is "ready to leave today but a little nervous", did not report pain this tx. Mental Status/Objective Patient Orientation: Normal For Age Therapy Code Descriptions/Definitions Functional [place] Measure: 0=Not Assessed/NA 4=Minimal Assistance 1=Total Assistance 5=Supervision or Setup 2=Maximal Assistance 6=Modified [place] 3=Moderate Assistance 7=Complete [place] ADL-Treatment Therapy Code Descriptions/Definitions Functional [place] Measure: 0=Not Assessed/NA 4=Minimal Assistance 1=Total Assistance 5=Supervision or Setup 2=Maximal Assistance 6=Modified [place] 3=Moderate Assistance 7=Complete [place] Therapy Quality Codes: 6 Independent with activity with or without an assistive device 5 Patient requires set up or clean up by helper. Patient completes activity by themselves 4 Supervision or touching assist (CGA). [place] provide cues , steadying assist 3 The helper provides less than half the effort to complete the activity 2 The helper provides more than half the effort to complete the activity 1 Dependent. The helper does all the effort to complete an activity 7 Patient refused to complete or attempt activity 9 The patient did not perform the activity before the current illness or injury 88 Not attempted due to Medical conditions or safety concerns Eating (FIM): 7 (per pt report, pt stated she is able to open containers, chop her food, and bring food to mouth to eat. She states she does not wear dentures while eating.) Eating (QC): 6 Grooming (FIM): 6 (Standing at sink with FWW, no LOB noted.) Oral Hygiene (QC): 6 Bathing (FIM): 5 (SBA for balance and safety, min verbal cues needed for sequencing. During task, pt asked "how do I wash my hair", OT prompted pt to sit down first, pt was then able to complete task. Pt able to stand at GB with SBA to wash zachary area and buttocks.) Bathing Location: L Arm, R Arm, L Upper Leg, R Upper Leg, L Lower Leg (including foot), R Lower Leg (including foot), Chest, Abdomen, Buttocks, Perineal Area Shower/Bathe Self (QC): 4 Upper Body (FIM): 5 (set up) Upper Body Dressing (QC): 5 Lower Body Dressing (FIM): 5 (SBA for safety during stand, no LOB noted.) Lower Body Dressing (QC): 4 On/Off Footwear (QC): 4 Toileting (FIM): 6 (3/3 complete) Toileting Hygiene (QC): 6 Transfers (B, C, W/C) (FIM): 5 (SBA for safety/balance) Toilet/Commode Transfer (FIM): 5 (SBA for safety, when pt stood from toilet, she started ambulating without walker, OT had to verbally prompt pt to use FWW) Toilet Transfer (QC): 4 Shower Transfer(FIM): 5 (SBA for safety, pt able to transfer using FWW and GB.) Other Treatment Pt completed ADLs session in room. Post OT session, pt seated in recliner, all needs met, call light and phone in reach. Education OT Patient Education: Correct positioning, Energy conservation, Progress toward Goal/Update tx plan, Purpose of tx/functional activities, Transfer techniques Teaching Recipient: Patient Teaching Methods: Demonstration Response to Teaching: Verbalize Understanding OT Short Term Goals Short Term Goals Transfers (B,C,W/C) (FIM): 5 (met) 1=Demonstrate adherence to instructed precautions during ADL tasks. 2=Patient will verbalize/demonstrate understanding of assistive devices/modifications for ADL. 3=Patient will improve strength/tolerance for activity to enable patient to perform ADL's. OT Fish Tender Goals Fish Tender Goals Time Frame: Dec 22, 2018 Eating (FIM): 6 (met) Eating (QC): 6 (met) Groomin (met) Oral Hygiene (QC): 6 (met) Bathing(FIM): 5 (met) Shower/Bathe Self (QC): 4 (met) Upper Body Dressing(FIM): 6 (not met) Upper Body Dressing (QC): 6 (not met) Lower Body Dressing(FIM): 6 (not met) Lower Body Dressing (QC): 6 (not met) On/Off Footwear (QC): 6 (not met) Toileting(FIM): 6 (met) Toileting Hygiene (QC): 6 (met) Transfers (B,C,W/C) (FIM): 6 (not met) Toilet/Commode Transfer(FIM): 6 (not met) Toilet/Commode Transfer (QC): 6 (not met) Shower Transfer(FIM): 5 (met) Additional Goals: 1-Demonstrate ADL Tasks, 2-Verbalize Understanding, 3- ImproveStrength/[place] 1=Demonstrate adherence to instructed precautions during ADL tasks. 2=Patient will verbalize/demonstrate understanding of assistive devices/modifications for ADL. 3=Patient will improve strength/tolerance for activity to enable patient to perform ADL's. OT Education/Plan Problem List/Assessment Assessment: Decreased Activ Tolerance, Decreased UE Strength, Impaired Self- Care Skills Discharge Recommendations Plan/Recommendations: Continue POC Therapy Discharge Recommendati: 24 Hour Supervision, Post Acute OT Equpiment Recommendations-D/C: Extended Bath Bench, Rails on Tub/Shower Treatment Plan/Plan of Care Treatment,Training & Education: Yes Patient would benefit from OT for education, treatment and training to promote independence in ADL's, mobility, safety and/or upper extremity function for ADL's. Plan of Care: ADL Retraining, Functional Mobility, Group Exercise/Act as Ind, UE Funct Exercise/Act Treatment Duration: Dec 22, 2018 Frequency: At least 5 of 7 days/Wk (IRF) Estimated Hrs Per Day: 1.5 hours per day Agreement: Yes Rehab Potential: Good Time/GCodes Start Time: 07:55 Stop Time: 08:22 Total Time Billed (hr/min): 27 Billed Treatment Time 1, ADL 2 x27min LIZETTE GONZALEZ OT Dec 18, 2018 08:31
[2018-12-18] MEDS ORDERED: INSU100V5 SQ (08:58)
[2018-12-18] MEDS ORDERED: MECL-106 PO (08:58)
[2018-12-18] MEDS ORDERED: QUET25TA73 PO (08:58)
[2018-12-18] MEDS ORDERED: ALPR0.5T7 PO ×2 (08:58)
[2018-12-18] MEDS ORDERED: INSU100V16 SC (08:58)
--- NOTE | 2018-12-18 08:59 | Discharge Inst-Skilled Nursing ---
Discharge Inst-Skilled NF Reconcile Patient Problems Problems Reviewed?: Yes Patient Instructions Patient Problems: Debility Falls Neuropathy Goal: Return to independent living to [place] Consult/Follow Up/Orders Follow Up Appt.: PCP in [address] Benavides Skilled NF Admit to: [facility] Certification ([facility]) I certify that SNF services are required to be given on an inpatient basis because of the above named patient's need for intermediate care on a continuing basis for the conditions(s) for which he/she was receiving inpatient hospital services prior to his/her transfer to the [facility]. Penitentiary Facility Order: Nursing Services, Inventory Control Coordinator-Evaluate & Treat, Physical Therapy-Evaluate & Treat Oxygen Delivery Method: Room Air Discharge Diet: ADA Diet Daily Activity as Tolerated: Yes New & Resume Previous Orders Vesta Arango Dec 18, 2018 08:58 VESTA ARANGO DO Dec 18, 2018 08:59
--- NOTE | 2018-12-18 09:01 | Discharge Summary ---
Diagnosis/Chief Complaint Date of Admission Dec 08, 2018 at 10:30 Date of Discharge Discharge Date: Dec 18, 2018 Discharge Diagnosis Assessment: Fall Facial trauma Neuropathy Chronic pain Anxiety CAD PVD HTN Dementia Chronic dizziness Plan: IRF protocol NHP Home meds Increase insulin with SSI but decrease long acting to minimize night time hypoglycemia Dramatic improvement since admit Reason Hospital Visit Verification and Attestation of Medical Student E/M Service A medical student performed and documented this service in my presence. I reviewed and verified all information documented by the medical student and made modifications to such information, when appropriate. I personally performed the physical exam and medical decision making. Vesta Arango, Dec 08, 2018,21:23 Discharge Summary Discharge Physical Examination Allergies: Coded Allergies: Tetanus Vaccines and Toxoid (Unverified Allergy, Severe, 12/17/11) SWOLLEN HOT RED ARM ampicillin (Unverified Allergy, Unknown, 12/20/15) Vitals & I&Os Vital Signs Date Time Temp Pulse Resp B/P (MAP) Pulse Ox O2 Delivery O2 Flow Rate FiO2 12/18/18 09:00 Room Air 12/18/18 06:20 97.8 106 18 138/72 (94) 96 General Appearance: Alert, Oriented X3, Cooperative Respiratory: Clear to Auscultation, Normal Air Movement Cardiovascular: Regular Rate Neuro: Normal Gait Psych/Mental Status: Mental Status NL, Mood NL Hospital Course Was the Problem List Reviewed?: Yes Hospital course: Pt had an uneventful 11 day hospital course in inpatient rehab where she was admitted after multiple falls, over-medicated polypharmacy, complicated with chronic neuropathy. Pt overall participated in all therapies, still remained a fall risk considering her chronic dizziness and vertigo and Meclizine lower dose was initiated to prevent over-sedation giving rise to higher risk to falls. Overall she returned to prior level of functioning with use of a walker still continues to be a fall risk so she was placed at [facility] for 20 skilled days and left hand wound needed no follow-up and she will likely go to [facility] living after completing skilled care. Labs (last 24 hrs) Laboratory Tests 12/08/18 15:53: Glucometer 307H 12/08/18 20:14: Glucometer 278H 12/09/18 05:10: White Blood Count 6.5, Red Blood Count 4.48, Hemoglobin 13.6, Hematocrit 39, Mean Corpuscular Volume 87, Mean Corpuscular Hemoglobin 30, Mean Corpuscular Hemoglobin Concent 35, Red Cell Distribution Width 15.4H, Platelet Count 160, Mean Platelet Volume 9.5, Neutrophils (%) (Auto) 56, Lymphocytes (%) (Auto) 28, Monocytes (%) (Auto) 12, Eosinophils (%) (Auto) 4, Basophils (%) (Auto) 0, Neutrophils # (Auto) 3.6, Lymphocytes # (Auto) 1.8, Monocytes # (Auto) 0.7, Eosinophils # (Auto) 0.3, Basophils # (Auto) 0.0, Sodium Level 136, Potassium Level 4.2, Chloride Level 101, Carbon Dioxide Level 22, Anion Gap 13, Blood Urea Nitrogen 23H, Creatinine 1.09, Estimat Glomerular Filtration Rate 50, BUN/Creatinine Ratio 21, Glucose Level 227H, Calcium Level 9.7, Corrected Calcium 9.8, Total Bilirubin 0.6, Aspartate Amino Transf (AST/SGOT) 11, Alanine Aminotransferase (ALT/SGPT) 17, Alkaline Phosphatase 61, Total Protein 6.6, Albumin 3.9 12/09/18 05:16: Glucometer 254H 12/09/18 10:52: Glucometer 268H 12/09/18 15:36: Glucometer 153H 12/09/18 20:44: Glucometer 299H 12/10/18 02:09: Glucometer 158H 12/10/18 05:32: Glucometer 223H 12/10/18 10:53: Glucometer 222H 12/10/18 15:22: Glucometer 238H 12/10/18 20:34: Glucometer 201H 12/11/18 05:56: Glucometer 166H 12/11/18 12:21: Glucometer 233H 12/11/18 15:51: Glucometer 288H 12/11/18 20:03: Glucometer 133H 12/12/18 05:40: White Blood Count 7.7, Red Blood Count 4.22L, Hemoglobin 12.7, Hematocrit 36, Mean Corpuscular Volume 86, Mean Corpuscular Hemoglobin 30, Mean Corpuscular Hemoglobin Concent 35, Red Cell Distribution Width 15.1H, Platelet Count 163, Mean Platelet Volume 9.2, Neutrophils (%) (Auto) 70, Lymphocytes (%) (Auto) 20, Monocytes (%) (Auto) 8, Eosinophils (%) (Auto) 2, Basophils (%) (Auto) 0, Neutrophils # (Auto) 5.4, Lymphocytes # (Auto) 1.5, Monocytes # (Auto) 0.6, Eosinophils # (Auto) 0.2, Basophils # (Auto) 0.0, Sodium Level 136, Potassium Level 4.4, Chloride Level 101, Carbon Dioxide Level 21, Anion Gap 14, Blood Urea Nitrogen 20H, Creatinine 1.14, Estimat Glomerular Filtration Rate 47, BUN/Creatinine Ratio 18, Glucose Level 213H, Calcium Level 9.5, Corrected Calcium 9.6, Total Bilirubin 0.5, Aspartate Amino Transf (AST/SGOT) 11, Alanine Aminotransferase (ALT/SGPT) 14, Alkaline Phosphatase 78, Total Protein 6.5, Albumin 3.9 12/12/18 05:53: Glucometer 217H 12/12/18 10:57: Glucometer 310H 12/12/18 15:44: Glucometer 226H 12/12/18 20:55: Glucometer 209H 12/13/18 05:35: Glucometer 353H 12/13/18 11:09: Glucometer 166H 12/13/18 16:59: Glucometer 230H 12/13/18 20:31: Glucometer 300H 12/14/18 04:51: Glucometer 212H 12/14/18 11:16: Glucometer 278H 12/14/18 15:20: Glucometer 291H 12/14/18 20:41: Glucometer 233H 12/15/18 04:35: White Blood Count 8.0, Red Blood Count 4.00L, Hemoglobin 11.9, Hematocrit 35, Mean Corpuscular Volume 87, Mean Corpuscular Hemoglobin 30, Mean Corpuscular Hemoglobin Concent 34, Red Cell Distribution Width 15.2H, Platelet Count 166, Mean Platelet Volume 9.1, Neutrophils (%) (Auto) 68, Lymphocytes (%) (Auto) 21, Monocytes (%) (Auto) 7, Eosinophils (%) (Auto) 3, Basophils (%) (Auto) 0, Neutrophils # (Auto) 5.5, Lymphocytes # (Auto) 1.7, Monocytes # (Auto) 0.6, Eosinophils # (Auto) 0.2, Basophils # (Auto) 0.0, Sodium Level 137, Potassium Level 4.3, Chloride Level 102, Carbon Dioxide Level 23, Anion Gap 12, Blood Urea Nitrogen 15, Creatinine 0.98, Estimat Glomerular Filtration Rate 56, BUN/Creatinine Ratio 15, Glucose Level 145H, Calcium Level 9.2, Corrected Calcium 9.4, Total Bilirubin 0.4, Aspartate Amino Transf (AST/SGOT) 10, Alanine Aminotransferase (ALT/SGPT) 16, Alkaline Phosphatase 53, Total Protein 6.2L, A lbumin 3.8 12/15/18 11:13: Glucometer 273H 12/15/18 16:37: Glucometer 183H 12/15/18 20:43: Glucometer 286H 12/16/18 05:19: Glucometer 229H 12/16/18 15:28: Glucometer 230H 12/17/18 06:33: Glucometer 152H 12/17/18 11:25: Glucometer 322H 12/17/18 16:45: Glucometer 128H 12/17/18 21:23: Glucometer 321H 12/18/18 05:25: Glucometer 176H 12/18/18 11:06: Glucometer 312H Pending Labs Laboratory Tests 12/08/18 15:53: Glucometer 307 12/08/18 20:14: Glucometer 278 12/09/18 05:10: White Blood Count 6.5, Red Blood Count 4.48, Hemoglobin 13.6, Hematocrit 39, Mean Corpuscular Volume 87, Mean Corpuscular Hemoglobin 30, Mean Corpuscular Hemoglobin Concent 35, Red Cell Distribution Width 15.4, Platelet Count 160, Mean Platelet Volume 9.5, Neutrophils (%) (Auto) 56, Lymphocytes (%) (Auto) 28, Monocytes (%) (Auto) 12, Eosinophils (%) (Auto) 4, Basophils (%) (Auto) 0, Neutrophils # (Auto) 3.6, Lymphocytes # (Auto) 1.8, Monocytes # (Auto) 0.7, Eosinophils # (Auto) 0.3, Basophils # (Auto) 0.0, Sodium Level 136, Potassium Level 4.2, Chloride Level 101, Carbon Dioxide Level 22, Anion Gap 13, Blood Urea Nitrogen 23, Creatinine 1.09, Estimat Glomerular Filtration Rate 50, BUN/Creatinine Ratio 21, Glucose Level 227, Calcium Level 9.7, Corrected Calcium 9.8, Total Bilirubin 0.6, Aspartate Amino Transf (AST/SGOT) 11, Alanine A minotransferase (ALT/SGPT) 17, Alkaline Phosphatase 61, Total Protein 6.6, Albumin 3.9 12/09/18 05:16: Glucometer 254 12/09/18 10:52: Glucometer 268 12/09/18 15:36: Glucometer 153 12/09/18 20:44: Glucometer 299 12/10/18 02:09: Glucometer 158 12/10/18 05:32: Glucometer 223 12/10/18 10:53: Glucometer 222 12/10/18 15:22: Glucometer 238 12/10/18 20:34: Glucometer 201 12/11/18 05:56: Glucometer 166 12/11/18 12:21: Glucometer 233 12/11/18 15:51: Glucometer 288 12/11/18 20:03: Glucometer 133 12/12/18 05:40: White Blood Count 7.7, Red Blood Count 4.22, Hemoglobin 12.7, Hematocrit 36, Mean Corpuscular Volume 86, Mean Corpuscular Hemoglobin 30, Mean Corpuscular Hemoglobin Concent 35, Red Cell Distribution Width 15.1, Platelet Count 163, Mean Platelet Volume 9.2, Neutrophils (%) (Auto) 70, Lymphocytes (%) (Auto) 20, Monocytes (%) (Auto) 8, Eosinophils (%) (Auto) 2, Basophils (%) (Auto) 0, Neutrophils # (Auto) 5.4, Lymphocytes # (Auto) 1.5, Monocytes # (Auto) 0.6, Eosinophils # (Auto) 0.2, Basophils # (Auto) 0.0, Sodium Level 136, Potassium Level 4.4, Chloride Level 101, Carbon Dioxide Level 21, Anion Gap 14, Blood Urea Nitrogen 20, Creatinine 1.14, Estimat Glomerular Filtration Rate 47, BUN/Creatinine Ratio 18, Glucose Level 213, Calcium Level 9.5, Corrected Calcium 9.6, Total Bilirubin 0.5, Aspartate Amino Transf (AST/SGOT) 11, Alanine Aminotransferase (ALT/SGPT) 14, Alkaline Phosphatase 78, Total Protein 6.5, Albumin 3.9 12/12/18 05:53: Glucometer 217 12/12/18 10:57: Glucometer 310 12/12/18 15:44: Glucometer 226 12/12/18 20:55: Glucometer 209 12/13/18 05:35: Glucometer 353 12/13/18 11:09: Glucometer 166 12/13/18 16:59: Glucometer 230 12/13/18 20:31: Glucometer 300 12/14/18 04:51: Glucometer 212 12/14/18 11:16: Glucometer 278 12/14/18 15:20: Glucometer 291 12/14/18 20:41: Glucometer 233 12/15/18 04:35: White Blood Count 8.0, Red Blood Count 4.00, Hemoglobin 11.9, Hematocrit 35, Mean Corpuscular Volume 87, Mean Corpuscular Hemoglobin 30, Mean Corpuscular Hemoglobin Concent 34, Red Cell Distribution Width 15.2, Platelet Count 166, Mean Platelet Volume 9.1, Neutrophils (%) (Auto) 68, Lymphocytes (%) (Auto) 21, Monocytes (%) (Auto) 7, Eosinophils (%) (Auto) 3, Basophils (%) (Auto) 0, Neutrophils # (Auto) 5.5, Lymphocytes # (Auto) 1.7, Monocytes # (Auto) 0.6, Eosinophils # (Auto) 0.2, Basophils # (Auto) 0.0, Sodium Level 137, Potassium Level 4.3, Chloride Level 102, Carbon Dioxide Level 23, Anion Gap 12, Blood Urea Nitrogen 15, Creatinine 0.98, Estimat Glomerular Filtration Rate 56, BUN/Creatinine Ratio 15, Glucose Level 145, Calcium Level 9.2, Corrected Calcium 9.4, Total Bilirubin 0.4, Aspartate Amino Transf (AST/SGOT) 10, Alanine Aminotransferase (ALT/SGPT) 16, Alkaline Phosphatase 53, Total Protein 6.2, Albumin 3.8 12/15/18 11:13: Glucometer 273 12/15/18 16:37: Glucometer 183 12/15/18 20:43: Glucometer 286 12/16/18 05:19: Glucometer 229 12/16/18 15:28: Glucometer 230 12/17/18 06:33: Glucometer 152 12/17/18 11:25: Glucometer 322 12/17/18 16:45: Glucometer 128 12/17/18 21:23: Glucometer 321 12/18/18 05:25: Glucometer 176 12/18/18 11:06: Glucometer 312 Discharge Home Medications: Active Scripts Active Novolog (Insulin Aspart) 100 Unit/1 Ml Susp 0 Unit SC ACHS 30 Days Levemir (Insulin Determir) 1,000 Units/10 Ml Soln 15 Unit SQ BID 30 Days Meclizine HCl 25 Mg Tablet 12.5 Mg PO Q12HR PRN 30 Days Quetiapine Fumarate 25 Mg Tablet 25 Mg PO BID Alprazolam 0.5 Mg Tablet 1 Mg PO HS 30 Days TAKES 2 (0.5MG) TABLETS Alprazolam 0.5 Mg Tablet 0.5 Mg PO DAILY Reported Metformin HCl ER (Metformin HCl) 500 Mg Tab.er.24h 500 Mg PO BID Bupropion Xl (Bupropion HCl) 300 Mg Tab.er.24h 300 Mg PO DAILY Gabapentin 600 Mg Tablet 1,200 Mg PO TID TAKES 2 (600MG) TABLETS Amlodipine Besylate 5 Mg Tablet 5 Mg PO 1800 Meloxicam 15 Mg Tablet 15 Mg PO DAILY Tradjenta (Linagliptin) 5 Mg Tablet 5 Mg PO DAILY Gemfibrozil 600 Mg Tablet 600 Mg PO BID Pantoprazole Sodium 40 Mg Tablet.dr 40 Mg PO DAILY Aspir 81 (Aspirin) 81 Mg Tablet.dr 81 Mg PO DAILY Citracal + D ER Tablet (Calcium Carb & Citrate/Vit D3) 1 Each Tablet.er 1 Tab PO DAILY Advil (Ibuprofen) 200 Mg Tablet 800 Mg PO TID PRN TAKES 4 (200MG) TABLETS Glimepiride 4 Mg Tablet 4 Mg PO BID Alendronate Sodium 70 Mg Tablet 70 Mg PO MANRIQUEZ Instructions to patient/family Please see electronic discharge instructions given to patient. Diagnosis/Problems Diagnosis/Problems (1) Fall Status: Acute Qualifiers: Qualified Codes: W19.XXXD - Unspecified fall, subsequent encounter (2) Physical deconditioning Status: Acute (3) Debility Status: Acute (4) Diabetes mellitus Status: Chronic Qualifiers: Qualified Codes: E11.69 - Type 2 diabetes mellitus with other specified complication (5) CAD (coronary artery disease) Status: Chronic Qualifiers: Qualified Codes: I25.10 - Atherosclerotic heart disease of [place] coronary artery without angina pectoris (6) Hyperlipidemia Status: Chronic Qualifiers: Qualified Codes: E78.2 - Mixed hyperlipidemia (7) Acute renal insufficiency Status: Acute (8) Neuropathy Status: Chronic (9) PVD (peripheral vascular disease) Status: Chronic (10) Hypertension Status: Chronic Qualifiers: Qualified Codes: I10 - Essential (primary) hypertension (11) Facial trauma Status: Acute Qualifiers: Qualified Codes: S09.93XD - Unspecified injury of face, subsequent encounter (12) Renal failure (ARF), acute on chronic Status: Acute Qualifiers: (13) Leukocytosis Status: Acute Qualifiers: Qualified Codes: D72.823 - Leukemoid reaction (14) H/O carotid endarterectomy Status: Chronic Clinical Quality Measures DVT/VTE Risk/Contraindication: Risk Factor Score Per Nursin RFS Level Per Nursing on Admit: 3=High VESTA ARANGO DO Dec 18, 2018 09:00
--- NOTE | 2018-12-18 09:04 | Physical Therapy Daily Note ---
PT Daily Note-Current Subjective Agrees to PT. Reports she is a little nervous about her discharge today. Mental Status Patient Orientation: Person, Place, Time, Situation Transfers Therapy Code Descriptions/Definitions Functional [place] Measure: 0=Not Assessed/NA 4=Minimal Assistance 1=Total Assistance 5=Supervision or Setup 2=Maximal Assistance 6=Modified [place] 3=Moderate Assistance 7=Complete [place] Therapy Quality Codes: 6 Independent with activity with or without an assistive device 5 Patient requires set up or clean up by helper. Patient completes activity by themselves 4 Supervision or touching assist (CGA). [place] provide cues , steadying assist 3 The helper provides less than half the effort to complete the activity 2 The helper provides more than half the effort to complete the activity 1 Dependent. The helper does all the effort to complete an activity 7 Patient refused to complete or attempt activity 9 The patient did not perform the activity before the current illness or injury 88 Not attempted due to Medical conditions or safety concerns Transfers (B, C, W/C) (FIM): 5 Roll Left to Right (QC): 5 Supine to/from Sit: 7 Sit to/from Stand: 5 (SBA for safety) Sit to Lying (QC): 6 Sit to Stand (QC): 5 (SBA for safety) Chair/Czy-ky-Vuwyp Xfer(QC): 5 Car Transfer (QC): 5 Pt is SBA with upright transfers and mobitliy due to safety concerns. Weight Bearing Full Weight Bearing Full Weight Bearing Gait Training Does the Patient Walk?: Yes Gait (FIM): 5 Distance (FIM): 3=150 ft Walk 10 feet (QC): 5 Walk 50 ft with 2 Turns(QC): 5 Walk 150 ft (QC): 5 Walking 10ft/uneven surface-QC: 4 (CGA for safety) Gait Assistive Device: FWW SBA with gait due to safety concerns and intermittent episodes of dizziness Wheelchair Training Does the Pt Use a Wheelchair?: No Stair Training Stair Training: Handrails/: 2 handrails Stairs (FIM): 2 (SBA for safety) #of Steps: 4 1 Step (curb) (QC): 5 4 Steps (QC): 5 12 Steps (QC): 88 Stairs: Pattern: Step to Balance Picking up an Object (QC): 88 Treatments Reviewed safety and educated on what to expect at follow up care. Assessment Current Status: Good Progress Pt has made functional gains, remains at SBA level due to intermittent dizziness and fall risk. Recommend supervision with mobility at this time. PT Short Term Goals Short Term Goals Time Frame: Dec 15, 2018 Transfers (B,C,W/C) (FIM): 5 (met) Gait (FIM): 5 (met) Distance (FIM): 3=150 ft PT Autism Specialist Goals Autism Specialist Goals PT Autism Specialist Goals Time Frame: Dec 26, 2018 Transfers (B,C,W/C) (FIM): 7 Sit to Lying (QC): 6 Lying-Sitting on Side/Bed(QC): 6 Sit to Stand (QC): 6 Rollin Roll Left to Right (QC): 6 Chair/Qea-in-Xvfwh Xfer(QC): 6 Car Transfer (QC): 6 Does the Patient Walk: Yes Gait (FIM): 6 Gait distance (FIM): 3=150 ft Walk 10 feet (QC): 6 Walk 10ft-Uneven Surface(QC): 6 Walk 50ft with 2 Turns (QC): 6 Walk 150 ft (QC): 6 Gait Assistive Device: FWW Does the Pt use WC or Scooter?: No Stairs (FIM): 5 # of Steps: 4 1 Step (curb) (QC): 6 4 Steps (QC): 6 12 Steps (QC): 88 Picking up an Object (QC): 88 Goals are unmet as she is still at a SBA levle. Pt to follow with PT at discharge. PT Plan Problem List Problem List: Activity Tolerance, Functional Strength, Safety, Balance, Gait, Transfer Treatment/Plan Treatment Plan: Discontinue PT Treatment Plan: Bed Mobility, Education, Functional Activity [place], Functional Strength, Group Therapy, Gait, Safety, Therapeutic Exercise, Transfers Treatment Duration: Dec 26, 2018 Frequency: At least 5 of 7 days/Wk (IRF) Estimated Hrs Per Day: 1.5 hours per day Patient and/or Family Agrees t: Yes Safety Risks/Education Patient Education: Transfer Techniques, Safety Issues Teaching Recipient: Patient Teaching Methods: Discussion Response to Teaching: Return Demonstration Discharge Recommendations Therapy Discharge Recommendati: Post Acute PT Time/GCodes Time In: 830 Time Out: 900 Total Billed Treatment Time: 30 Total Billed Treatment visit GT 20 FA 10 JJ COREA PT Dec 18, 2018 09:04
--- NOTE | 2018-12-18 09:15 | Therapy Team Discharge Summary ---
Therapy Discharge Summary Discharge Recommendations Date of Discharge 12/18/18 Therapy D/C Recommendations: Physical Therapy Home Care Physical Therapy This pt wa admitted to ARU post acute stay due to frequent falls. Prior to admission, she was living alone using an AD for safety. At [facility], she was mod assist with transfers and walked short distances with CG-min assist. Treatmeht has focused on fucntional strenght, balance and safety to improve transfers and gait. She remains at a SBA level due to intermittent dizziness therefore goals not fully met. Pt to discharge to LTC with recommended contineud care. Occupational Therapy Decreased Activ Tolerance, Decreased UE Strength, Impaired Self-Care Skills PT Assisted Goals Crate Maker Goals PT Crate Maker Goals Time Frame: Dec 26, 2018 Transfers (B,C,W/C) (FIM): 7 Roll Left to Right (QC): 6 Sit to Lying (QC): 6 Lying-Sitting on Side/Bed(QC): 6 Sit to Stand (QC): 6 Chair/Qrg-np-Olysp Xfer(QC): 6 Car Transfer (QC): 6 Does the Patient Walk: Yes Gait (FIM): 6 Gait distance (FIM): 3=150 ft Walk 10 feet (QC): 6 Walk 10ft-Uneven Surface(QC): 6 Walk 50ft with 2 Turns (QC): 6 Walk 150 ft (QC): 6 Gait Assistive Device: FWW Does the Pt use WC or Scooter?: No Stairs (FIM): 5 # of Steps: 4 1 Step (curb) (QC): 6 4 Steps (QC): 6 12 Steps (QC): 88 Picking up an Object (QC): 88 pt remains at a SBA level for safety due to intermitted balance issues. OT Crate Maker Goals Crate Maker Goals Time Frame: Dec 22, 2018 Eating (FIM): 6 (met) Eating (QC): 6 (met) Oral Hygiene (QC): 6 (met) Grooming(FIM): 6 (met) Bathing(FIM): 5 (met) Shower/Bathe Self (QC): 4 (met) Upper Body Dressing(FIM): 6 (not met) Upper Body Dressing (QC): 6 (not met) Lower Body Dressing(FIM): 6 (not met) Lower Body Dressing (QC): 6 (not met) On/Off Footwear (QC): 6 (not met) Toileting(FIM): 6 (met) Toileting Hygiene (QC): 6 (met) Transfers (B,C,W/C) (FIM): 6 (not met) Toilet/Commode Transfer(FIM): 6 (not met) Toilet/Commode Transfer (QC): 6 (not met) Shower Transfer(FIM): 5 (met) Additional Goals: 1-Demonstrate ADL Tasks, 2-Verbalize Understanding, 3- ImproveStrength/Kelechi 1=Demonstrate adherence to instructed precautions during ADL tasks. 2=Patient will verbalize/demonstrate understanding of assistive devices/modifications for ADL. 3=Patient will improve strength/tolerance for activity to enable patient to perform ADL's. Speech Crate Maker Goals Crate Maker Goals The patient will improve cognitive-communication necessary for safety and daily living tasks with minimal assist. JJ COREA PT Dec 18, 2018 09:15
[2018-12-18] MEDS: PANTOPRAZOLE 40 MG (PROTONIX) TAB PO SCH (09:42)
[2018-12-18] MEDS: buPROPion SR 150 MG (WELLBUTRIN SR) TAB PO SCH (09:42)
[2018-12-18] MEDS: GABAPENTIN 600 MG (NEURONTIN) TAB PO SCH (09:43)
[2018-12-18] MEDS: SENNA W/DOCUSATE (SENOKOT S) TABLET PO SCH (09:43)
[2018-12-18] MEDS: ASPIRIN E.C. 81 MG (ECOTRIN) TAB PO SCH (09:43)
[2018-12-18] MEDS: QUEtiapine 25 MG (SEROquel) TAB IMMEDIATE RELEASE PO SCH (09:43)
[2018-12-18] MEDS: DOCUSATE SODIUM 100 MG (COLACE) CAP PO PRN (09:43)
[2018-12-18] MEDS: ALPRAZolam 0.5 MG (XANAX) TAB PO SCH (09:43)
[2018-12-18] MEDS: MELOXICAM 7.5 MG (MOBIC) TABLET PO SCH (09:43)
[2018-12-18] MEDS: GEMFIBROZIL 600 MG (LOPID) TAB PO SCH (09:43)
[2018-12-18] MEDS: CALCIUM CARB + VIT D 600 MG (CALCARB + D) TAB PO SCH (09:45)
--- NOTE | 2018-12-18 12:08 | NUR ---
Report called to ANDREAS Alas at [facility].
--- NOTE | 2018-12-18 13:47 | Speech Therapy Daily Note ---
Speech Daily Progress Note Subjective Date Seen by Provider: Dec 18, 2018 Time Seen by Provider: 00:30 The patient stated she is leaving today. Objective The patient completed a series of fill in the blanks to statements/questions related to daily routine at 80% with minimal cues and/or repetitions. Assessment Assessment Current Status: Good Progress Treatment Plan Discontinue ST, Goals Met Communication Comprehension: 7 Expression: 7 Social Cognition Social Interaction: 7 Problem Solvin Memory: 6 Speech Short Term Goals Short Term Goals Short Term Goals 1) The patient will complete memory tasks related to her daily needs with 90% or greater. Met 2) The patient will complete problem solving tasks related to her daily needs with 90% or greater. Met 3) The patient will complete safety tasks related to her daily needs with 90% or greater. Met Speech Snf Goals Driver/Refuse Collector Goals The patient will improve cognitive-communication necessary for safety and daily living tasks with minimal assist. Met Speech-Plan Patient/Family Goals Patient/Family Goals: The patient is discharging to the SNF today. Treatment Plan Speech Therapy Treatment Plan: Discontinue ST, Goals Met Patient is going [facility]. Treatment Duration: Dec 18, 2018 Frequency: 5 times per week Estimated Hrs Per Day: .5 hour per day Rehab Potential: Good Barriers to Learning: Patient has mild cognitive deficits. Pt/Family Agrees to Plan: Yes Safety Risks/Education Teaching Recipient: Patient, Family Teaching Methods: Demonstration, Discussion Response to Teaching: Verbalize Understanding, Return Demonstration Education Topics Provided: Continued safety within her new environment. Time Speech Therapy Time In: 13:00 Speech Therapy Time Out: 13:15 Total Billed Time: 15 Billed Treatment Time 1, ANGY Dumont Dec 18, 2018 13:47
--- NOTE | 2018-12-18 13:51 | Therapy Team Discharge Summary ---
Therapy Discharge Summary Discharge Recommendations Date of Discharge Therapy D/C Recommendations: Physical Therapy Home Care Occupational Therapy Decreased Activ Tolerance, Decreased UE Strength, Impaired Self-Care Skills Speech-Language Pathology The patient is a pleasant 68 year old female who was admitted to the ARU s/p injury due to a fall. The patient has a hx of dizzy spells which often times result in falls. The patient was given the SLUMS for assessment of cognitive function. She demo decreased cognition at the time of evaluation and was treated for memory, problem solving and safety awareness. The patient is being discharged to SNF today. She is also being discharged from [facility] with all goals met. PT Snf Goals Snf Goals PT Music Grapher Goals Time Frame: Dec 26, 2018 Transfers (B,C,W/C) (FIM): 7 Roll Left to Right (QC): 6 Sit to Lying (QC): 6 Lying-Sitting on Side/Bed(QC): 6 Sit to Stand (QC): 6 Chair/Cit-cq-Ekdic Xfer(QC): 6 Car Transfer (QC): 6 Does the Patient Walk: Yes Gait (FIM): 6 Gait distance (FIM): 3=150 ft Walk 10 feet (QC): 6 Walk 10ft-Uneven Surface(QC): 6 Walk 50ft with 2 Turns (QC): 6 Walk 150 ft (QC): 6 Gait Assistive Device: FWW Does the Pt use WC or Scooter?: No Stairs (FIM): 5 # of Steps: 4 1 Step (curb) (QC): 6 4 Steps (QC): 6 12 Steps (QC): 88 Picking up an Object (QC): 88 OT Snf Goals Snf Goals Time Frame: Dec 22, 2018 Eating (FIM): 6 (met) Eating (QC): 6 (met) Oral Hygiene (QC): 6 (met) Grooming(FIM): 6 (met) Bathing(FIM): 5 (met) Shower/Bathe Self (QC): 4 (met) Upper Body Dressing(FIM): 6 (not met) Upper Body Dressing (QC): 6 (not met) Lower Body Dressing(FIM): 6 (not met) Lower Body Dressing (QC): 6 (not met) On/Off Footwear (QC): 6 (not met) Toileting(FIM): 6 (met) Toileting Hygiene (QC): 6 (met) Transfers (B,C,W/C) (FIM): 6 (not met) Toilet/Commode Transfer(FIM): 6 (not met) Toilet/Commode Transfer (QC): 6 (not met) Shower Transfer(FIM): 5 (met) Additional Goals: 1-Demonstrate ADL Tasks, 2-Verbalize Understanding, 3- ImproveStrength/Kelechi 1=Demonstrate adherence to instructed precautions during ADL tasks. 2=Patient will verbalize/demonstrate understanding of assistive devices/modifications for ADL. 3=Patient will improve strength/tolerance for activity to enable patient to perform ADL's. Speech Music Grapher Goals Music Grapher Goals The patient will improve cognitive-communication necessary for safety and daily living tasks with minimal assist. Met ANGY DAWKINS Dec 18, 2018 13:51
--- NOTE | 2018-12-19 15:18 | Therapy Team Discharge Summary ---
Therapy Discharge Summary Discharge Recommendations Date of Discharge Dec 18, 2018 at 13:20 Therapy D/C Recommendations: Physical Therapy Home Care, Residential (TCU/NH) Occupational Therapy OT focused on UE strengthening/endurance, fine motor strengthening, and ADLs during txs in order to increase independence in ADLs and functional activities at discharge. Barriers to pt's progress include pt occasionally reporting she feels dizzy and experiencing LOB, requiring SBA with ADLs. Pt is currently SBA for all ADLs. AE recommended at d/c: tub bench. OT recommends d/c to SNF with continued OT services. Pt met some of the OT goals, but not all goals, please refer to goals below. Decreased Activ Tolerance, Decreased UE Strength, Impaired Self-Care Skills PT Mcc Goals Mcc Goals PT Mcc Goals Time Frame: Dec 26, 2018 Transfers (B,C,W/C) (FIM): 7 Roll Left to Right (QC): 6 Sit to Lying (QC): 6 Lying-Sitting on Side/Bed(QC): 6 Sit to Stand (QC): 6 Chair/Ijm-cf-Ohasz Xfer(QC): 6 Car Transfer (QC): 6 Does the Patient Walk: Yes Gait (FIM): 6 Gait distance (FIM): 3=150 ft Walk 10 feet (QC): 6 Walk 10ft-Uneven Surface(QC): 6 Walk 50ft with 2 Turns (QC): 6 Walk 150 ft (QC): 6 Gait Assistive Device: FWW Does the Pt use WC or Scooter?: No Stairs (FIM): 5 # of Steps: 4 1 Step (curb) (QC): 6 4 Steps (QC): 6 12 Steps (QC): 88 Picking up an Object (QC): 88 OT Mcc Goals Mcc Goals Time Frame: Dec 22, 2018 Eating (FIM): 6 (met) Eating (QC): 6 (met) Oral Hygiene (QC): 6 (met) Grooming(FIM): 6 (met) Bathing(FIM): 5 (met) Shower/Bathe Self (QC): 4 (met) Upper Body Dressing(FIM): 6 (not met) Upper Body Dressing (QC): 6 (not met) Lower Body Dressing(FIM): 6 (not met) Lower Body Dressing (QC): 6 (not met) On/Off Footwear (QC): 6 (not met) Toileting(FIM): 6 (met) Toileting Hygiene (QC): 6 (met) Transfers (B,C,W/C) (FIM): 6 (not met) Toilet/Commode Transfer(FIM): 6 (not met) Toilet/Commode Transfer (QC): 6 (not met) Shower Transfer(FIM): 5 (met) Additional Goals: 1-Demonstrate ADL Tasks, 2-Verbalize Understanding, 3- ImproveStrength/Kelechi 1=Demonstrate adherence to instructed precautions during ADL tasks. 2=Patient will verbalize/demonstrate understanding of assistive devices/modifications for ADL. 3=Patient will improve strength/tolerance for activity to enable patient to perform ADL's. Speech Mcc Goals Qc Lab Technician Goals The patient will improve cognitive-communication necessary for safety and daily living tasks with minimal assist. Met LIZETTE GONZALEZ OT Dec 19, 2018 15:18
== END 2018-12-18 13:20 | DRG 93 ==
PROVIDERS: ADMIT Internal Medicine; ATTEND Internal Medicine
DX: R29.6 Repeated falls (principal); R53.1 Weakness; R42 Dizziness and giddiness; E11.40 Type 2 diabetes mellitus with diabetic neuropathy, unspecified; E11.65 Type 2 diabetes mellitus with hyperglycemia; E11.51 Type 2 diabetes mellitus with diabetic peripheral angiopathy without gangrene; I12.9 Hypertensive chronic kidney disease with stage 1 through stage 4 chronic kidney disease, or unspecified chronic kidney disease; N18.9 Chronic kidney disease, unspecified; F03.90 Unspecified dementia, unspecified severity, without behavioral disturbance, psychotic disturbance, mood disturbance, and anxiety; F17.210 Nicotine dependence, cigarettes, uncomplicated; E78.2 Mixed hyperlipidemia; I25.10 Atherosclerotic heart disease of native coronary artery without angina pectoris; Z79.4 Long term (current) use of insulin; S61.411D Laceration without foreign body of right hand, subsequent encounter; S05.11XD Contusion of eyeball and orbital tissues, right eye, subsequent encounter; S05.12XD Contusion of eyeball and orbital tissues, left eye, subsequent encounter; W19.XXXD Unspecified fall, subsequent encounter
CPT/HCPCS: 36415; 80053; 82962; 85025

== ENCOUNTER 2019-03-23 14:38 | Emergency (ER) | payer MEDICARE, MEDICAID ==
[~2019-03-23] VITALS: Ht 165.1 cm; Wt 72.7 kg
[~2019-03-23 14:38] MED LIST changes: +BISO1TAB6 PO; +CEFD300C3 PO; +INSU100I32 SC; +INSU100V16 SC; +INSU100V5 SQ; +METF500T8 PO; +OMG1KC PO
--- NOTE | 2019-03-23 14:47 | ED General ---
General Chief Complaint: Altered Mental Status Stated Complaint: LETHARGIC Source of Information: Patient, EMS History of Present Illness Date Seen by Provider: Mar 23, 2019 Time Seen by Provider: 14:45 Initial Comments 68-year-old female brought in due to lethargy. Patient was last seen normal yesterday. She has some mild fatigue and falls asleep easily. Patient otherwise did not complain of any fevers chills nausea or vomiting. EMS was concerned that she possibly took too much of some medication. Patient answers all questions appropriately and doesn't really have any complaints. Allergies and Home Medications Allergies Coded Allergies: Tetanus Vaccines and Toxoid (Unverified Allergy, Severe, 12/17/11) SWOLLEN HOT RED ARM ampicillin (Unverified Allergy, Unknown, 12/20/15) Home Medications Alendronate Sodium 70 Mg Tablet, 70 MG PO Gaines, (Reported) Alprazolam 0.5 Mg Tablet, 0.5 MG PO DAILY Prescribed by: GUADALUPE AUSTIN on 12/18/18857 Alprazolam 0.5 Mg Tablet, 1 MG PO HS TAKES 2 (0.5MG) TABLETS Prescribed by: GUADALUPE AUSTIN on 12/18/18857 Amlodipine Besylate 5 Mg Tablet, 5 MG PO 1800, (Reported) Aspirin 81 Mg Tablet.dr, 81 MG PO DAILY, (Reported) Bupropion HCl 300 Mg Tab.er.24h, 300 MG PO DAILY, (Reported) Calcium Carb & Citrate/Vit D3 1 Each Tablet.er, 1 TAB PO DAILY, (Reported) Gabapentin 600 Mg Tablet, 1,200 MG PO TID, (Reported) TAKES 2 (600MG) TABLETS Gemfibrozil 600 Mg Tablet, 600 MG PO BID, (Reported) Glimepiride 4 Mg Tablet, 4 MG PO BID, (Reported) Ibuprofen 200 Mg Tablet, 800 MG PO TID PRN for PAIN-MILD, (Reported) TAKES 4 (200MG) TABLETS Insulin Aspart 100 Unit/1 Ml Susp, 0 UNIT SC ACHS Prescribed by: GUADALUPE AUSTIN on 12/18/18857 Insulin Determir 1,000 Units/10 Ml Soln, 15 UNIT SQ BID Prescribed by: GUADALUPE AUSTIN on 12/18/18857 Linagliptin 5 Mg Tablet, 5 MG PO DAILY, (Reported) Meclizine HCl 25 Mg Tablet, 12.5 MG PO Q12HR PRN for Dizziness Prescribed by: GUADALUPE AUSTIN on 12/18/18 0858 Meloxicam 15 Mg Tablet, 15 MG PO DAILY, (Reported) Metformin HCl 500 Mg Tab.er.24h, 500 MG PO BID, (Reported) Pantoprazole Sodium 40 Mg Tablet.dr, 40 MG PO DAILY, (Reported) Quetiapine Fumarate 25 Mg Tablet, 25 MG PO BID Prescribed by: GUADALUPE AUSTIN on 12/18/18857 Patient Home Medication List Home Medication List Reviewed: Yes Review of Systems Review of Systems Constitutional: No chills, No fever; malaise, weakness Respiratory: No cough, No short of breath Cardiovascular: No chest pain, No palpitations Gastrointestinal: no symptoms reported Genitourinary: no symptoms reported Musculoskeletal: no symptoms reported Skin: no symptoms reported Psychiatric/Neurological: See HPI Past Hjxjyeq-Cguroo-Ouwrso Hx Past Med/Social Hx: Reviewed Nursing Past Med/Soc Hx Patient Social History Type Used: Cigarettes Recent Hopitalizations: Yes Immunizations Up To Date Tetanus Booster (TDap): Unknown Date of Pneumonia Vaccine: August 21, 2016 Date of Influenza Vaccine: Mar 19, 2011 Seasonal Allergies Seasonal Allergies: Yes Past Medical History Surgeries: Yes (R CAROTID 2010) Hysterectomy, Vascular Surgery Respiratory: No COPD Currently Using CPAP: No Currently Using BIPAP: No Cardiac: Yes Coronary Artery Disease, Hypertension, Peripheral Vascular Neurological: Yes Dementia, Neuropathy 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 Disorders: No Genitourinary: Yes UTI-Chronic Gastrointestinal: Yes Gastrointestinal Bleed, Diverticulosis, Chronic Diarrhea Musculoskeletal: Yes (ARTHRITIS) Degenerate Disk Disease Endocrine: Yes (BS 172 BEFORE ADMISSION) Diabetes, Non-Insulin dep Cataract Loss of Vision: Denies Cancer: No Psychosocial: Yes Anxiety Integumentary: No Blood Disorders: No Family Medical History Arthritis G8 SISTER G8 SISTER Cataracts 19 MOTHER Diabetes mellitus G8 SISTER FH: COPD (chronic obstructive pulmonary disease) 19 MOTHER FH: CVA (cerebrovascular accident) 19 FATHER FH: heart attack 19 FATHER Glaucoma 19 MOTHER Hypercholesterolemia 19 FATHER Hypertension 19 FATHER No Pertinent Family Hx Physical Exam Vital Signs Vital Signs - First Documented 03/23/19 14:38 Temp 36.0 Pulse 76 Resp 20 B/P (MAP) 101/63 (76) Pulse Ox 94 O2 Delivery Room Air Capillary Refill : Height, Weight, BMI Height: 5'5.00" Weight: 164lbs. 6.4oz. [id number]; 26.8 BMI Method:Stated General Appearance: Other (mild lethargic with some mild slurring of words occasionally) HEENT: PERRL/EOMI, TMs Normal Neck: Non Tender, Supple Respiratory: Lungs Clear, Normal Breath Sounds Cardiovascular: Regular Rate, Rhythm, No Edema Gastrointestinal: Non Tender, Soft Back: Normal Inspection Extremity: Normal Capillary Refill Neurologic/Psychiatric: Alert, Oriented x3, No Motor/Sensory Deficits Skin: Normal Color, Warm/Dry Lymphatic: No Adenopathy Focused Exam Lactate Level 03/23/19 14:55: Lactic Acid Level 2.91*H Lactic Acid Level Laboratory Tests Test 03/23/19 14:55 Lactic Acid Level 2.91 MMOL/L (0.50-2.00) *H Progress/Results/Core Measures Suspected Sepsis SIRS Temperature: Pulse: Respiratory Rate: Laboratory Tests 03/23/19 14:45: White Blood Count 16.8H Blood Pressure / Mean: 03/23/19 14:55: Lactic Acid Level 2.91*H Laboratory Tests 03/23/19 14:45: INR Comment 1.1, Platelet Count 276 03/23/19 14:55: Creatinine 1.72H, Total Bilirubin 0.6 Results/Orders Lab Results Laboratory Tests Test 03/23/19 14:45 03/23/19 14:55 Range/Units White Blood Count 16.8 H 4.3-11.0 10^3/uL Red Blood Count 4.90 4.35-5.85 10^6/uL Hemoglobin 14.3 11.5-16.0 G/DL Hematocrit 42 35-52 % Mean Corpuscular Volume 85 80-99 FL Mean Corpuscular Hemoglobin 29 25-34 PG Mean Corpuscular Hemoglobin Concent 34 32-36 G/DL Red Cell Distribution Width 15.0 H 10.0-14.5 % Platelet Count 276 130-400 10^3/uL Mean Platelet Volume 9.0 7.4-10.4 FL Neutrophils (%) (Auto) 79 H 42-75 % Lymphocytes (%) (Auto) 14 12-44 % Monocytes (%) (Auto) 6 0-12 % Eosinophils (%) (Auto) 1 0-10 % Basophils (%) (Auto) 0 0-10 % Neutrophils # (Auto) 13.2 H 1.8-7.8 X 10^3 Lymphocytes # (Auto) 2.4 1.0-4.0 X 10^3 Monocytes # (Auto) 1.1 H 0.0-1.0 X 10^3 Eosinophils # (Auto) 0.1 0.0-0.3 10^3/uL Basophils # (Auto) 0.0 0.0-0.1 10^3/uL Neutrophils % (Manual) 80 % Lymphocytes % (Manual) 11 % Monocytes % (Manual) 6 % Eosinophils % (Manual) 2 % Basophils % (Manual) 1 % Band Neutrophils 0 % Anisocytosis SLIGHT Prothrombin Time 14.6 12.2-14.7 SEC INR Comment 1.1 0.8-1.4 Activated Partial Thromboplast Time 30 24-35 SEC Sodium Level 134 L 135-145 MMOL/L Potassium Level 5.3 H 3.6-5.0 MMOL/L Chloride Level 100 98-107 MMOL/L Carbon Dioxide Level 21 21-32 MMOL/L Anion Gap 13 5-14 MMOL/L Blood Urea Nitrogen 25 H 7-18 MG/DL Creatinine 1.72 H 0.60-1.30 MG/DL Estimat Glomerular Filtration Rate 29 BUN/Creatinine Ratio 15 Glucose Level 324 H 70-105 MG/DL Lactic Acid Level 2.91 *H 0.50-2.00 MMOL/L Calcium Level 9.6 8.5-10.1 MG/DL Corrected Calcium 9.4 8.5-10.1 MG/DL Total Bilirubin 0.6 0.1-1.0 MG/DL Aspartate Amino Transf (AST/SGOT) 23 5-34 U/L Alanine Aminotransferase (ALT/SGPT) 23 0-55 U/L Alkaline Phosphatase 49 40-136 U/L Ammonia 20 11-32 UMOL/L Total Protein 7.2 6.4-8.2 GM/DL Albumin 4.3 3.2-4.5 GM/DL Serum Alcohol < 10 <10 MG/DL Micro Results Microbiology 03/23/19 Influenza Types A,B Antigen (ANN MARIE) - Final, Complete My Orders Orders - LINCOLN GARCES DO Ct Head Wo (03/23/19 14:47) Chest 1 View, Ap/Pa Only (03/23/19 14:47) Alcohol (03/23/19 14:47) Ammonia (03/23/19 14:47) Cbc With Automated Diff (03/23/19 14:47) Comprehensive Metabolic Panel (03/23/19 14:47) Drug Screen Stat (Urine) (03/23/19 14:47) Lactic Acid Analyzer (03/23/19 14:47) Protime With Inr (03/23/19 14:47) Partial Thromboplastin Time (03/23/19 14:47) Ua Culture If Indicated (03/23/19 14:47) Influenza A And B Antigens (03/23/19 14:47) Manual Differential (03/23/19 14:45) Levofloxacin 750 Mg/150 Ml Iv (Levaquin (03/23/19 15:30) Ed Iv/Invasive Line Start (03/23/19 15:30) Ns Iv 1000 Ml (Sodium Chloride 0.9%) (03/23/19 15:30) Vital Signs/I&O 03/23/19 14:38 Temp 36.0 Pulse 76 Resp 20 B/P (MAP) 101/63 (76) Pulse Ox 94 O2 Delivery Room Air Capillary Refill : Departure Impression Primary Impression: Sepsis Qualified Codes: A41.9 - Sepsis, unspecified organism; R65.20 - Severe sepsis without septic shock; N17.9 - Acute kidney failure, unspecified Disposition: 62 DISC/XFER TO IRF Condition: Stable Transfer Transfer Reason: Diversion Time Spoke to Accepting Phy: 15:40 Transfer Progress Notes Patient with sepsis with some mild acute renal failure. Patient given Rocephin and IV fluids in the ER. They're currently on diversion so patient will be transferred to [facility] excepting Dr. Austin in stable condition. Transfer Facility: [facility] Method of Transfer: EMS Departure-Patient Inst. Referrals: RACHEL BAKER MD (PCP/Family) Primary Care Physician LINCOLN GARCES DO Mar 23, 2019 14:47 POS
[2019-03-23 14:55] LABS: BASOPHILS % (AUTO) 0 % (0-10); EOSINOPHILS # (AUTO) 0.1 10^3/uL (0.0-0.3); EOSINOPHILS % (AUTO) 1 % (0-10); HEMATOCRIT 42 % (35-52); HEMOGLOBIN 14.3 G/DL (11.5-16.0); LYMPHOCYTES # (AUTO) 2.4 X 10^3 (1.0-4.0); LYMPHOCYTES % (AUTO) 14 % (12-44); MEAN CORPUSCULAR HEMOGLOBIN 29 PG (25-34); MEAN CORPUSCULAR HGB CONC 34 G/DL (32-36); MEAN CORPUSCULAR VOLUME 85 FL (80-99); MONOCYTES # (AUTO) 1.1 X 10^3 (0.0-1.0); MONOCYTES % (AUTO) 6 % (0-12); NEUTROPHILS # (AUTO) 13.2 X 10^3 (1.8-7.8); NEUTROPHILS % (AUTO) 79 % (42-75); PLATELET COUNT 276 10^3/uL (130-400); WHITE BLOOD COUNT 16.8 10^3/uL (4.3-11.0)
[2019-03-23 15:04] LABS: INR 1.1 (0.8-1.4); PROTHROMBIN TIME PATIENT 14.6 SEC (12.2-14.7)
[2019-03-23 15:09] LABS: BAND NEUTROPHILS 0 %; BASOPHILS % (MANUAL) 1 %; EOSINOPHILS % (MANUAL) 2 %; LYMPHOCYTES % (MANUAL) 11 %; MONOCYTES % (MANUAL) 6 %; NEUTROPHILS % (MANUAL) 80 %
[2019-03-23 15:10] LABS: ANISOCYTOSIS SLIGHT
--- NOTE | 2019-03-23 15:19 | Diagnostic Imaging Report ---
PROCEDURE: CT head without contrast. TECHNIQUE: Multiple contiguous axial images were obtained through the brain without the use of intravenous contrast. Auto Exposure Controls were utilized during the CT exam to meet ALARA standards for radiation dose reduction. INDICATION: Altered mental status. COMPARISON: 12/04/2018 FINDINGS: No large acute territorial ischemia, mass, or hemorrhage. Chronic microvascular disease is seen in the periventricular and subcortical white matter. The ventricles and cortical sulci are prominent, consistent with generalized volume loss. The basilar cisterns are patent and unremarkable. The calvarium is intact. The visualized paranasal sinuses are clear. IMPRESSION: 1. No large acute territorial ischemia, mass, or hemorrhage. 2. Chronic microvascular disease. 3. Generalized volume loss. Dictated by: Dictated on workstation # [id number]
--- NOTE | 2019-03-23 15:20 | Diagnostic Imaging Report ---
EXAMINATION: Chest 1 view HISTORY: Lethargy. Altered mental status. COMPARISON: None available. FINDINGS: The lung volumes are normal. No focal consolidation is seen. No large pleural effusion or pneumothorax is seen. The cardiomediastinal silhouette is normal in size and contour. No acute osseous abnormality is seen. IMPRESSION: 1. No acute pleuroparenchymal process. Dictated by: Dictated on workstation # [id number]
[2019-03-23 15:21] LABS: ALANINE AMINOTRANSFERASE 23 U/L (0-55); ALBUMIN 4.3 GM/DL (3.2-4.5); ALKALINE PHOSPHATASE 49 U/L (40-136); AMMONIA 20 UMOL/L (11-32); BILIRUBIN,TOTAL 0.6 MG/DL (0.1-1.0); BUN/CREATININE RATIO 15; CALCIUM 9.6 MG/DL (8.5-10.1); CARBON DIOXIDE 21 MMOL/L (21-32); CHLORIDE 100 MMOL/L (98-107); CREATININE SERUM 1.72 MG/DL (0.60-1.30); GFR ESTIMATED 29; GLUCOSE 324 MG/DL (70-105); POTASSIUM 5.3 MMOL/L (3.6-5.0); SODIUM 134 MMOL/L (135-145); TOTAL PROTEIN 7.2 GM/DL (6.4-8.2)
[2019-03-23] MEDS ORDERED: NS IV 1000 ML 1,000 ML IV SCH (15:30)
[2019-03-23] MEDS ORDERED: LEVOFLOXACIN 750 MG/150 ML IV 150 ML IV STA (15:30)
[2019-03-23 16:05] LABS: BILIRUBIN,URINE NEGATIVE (NEGATIVE); CLARITY,URINE SL CLOUDY; COLOR,URINE YELLOW; GLUCOSE, URINE (UA) 2+ (NEGATIVE); KETONES,URINE NEGATIVE (NEGATIVE); LEUKOCYTE ESTERASE ,URINE NEGATIVE (NEGATIVE); NITRITE,URINE NEGATIVE (NEGATIVE); PROTEIN,URINE 2+ (NEGATIVE)
[2019-03-23 16:17] LABS: BACTERIA,URINE NEGATIVE /HPF; SQUAMOUS EPITHELIAL CELL,UR 0-2 /HPF
[2019-03-23 16:23] LABS: AMPHETAMINE SCREEN, URINE NEGATIVE (NEGATIVE); BARBITURATE SCREEN URINE NEGATIVE (NEGATIVE); BENZODIAZEPINES SCREEN URINE POSITIVE (NEGATIVE); CANNABINOID SCREEN, URINE NEGATIVE (NEGATIVE); COCAINE SCREEN URINE NEGATIVE (NEGATIVE); METHADONE STAT NEGATIVE (NEGATIVE); METHAMPHETAMINE SCREEN URINE S NEGATIVE (NEGATIVE); OPIATE SCREEN URINE NEGATIVE (NEGATIVE); OXYCODONE STAT NEGATIVE (NEGATIVE); PROPOXYPHENE STAT NEGATIVE (NEGATIVE); TRICYCLIC ANTIDEPRESSANTS SCRE POSITIVE (NEGATIVE)
[2019-03-23 17:40] VITALS: BP 106/55
--- OUTSIDE RECORDS SUMMARY | 2019-04-17 15:13 | XMS REPORT | Continuity of Care Document ---
Author Organization Unknown Address Unknown Phone Unavailable Allergies Active Description Code Type Severity Reaction Onset Reported/Identified Relationship to Patient Clinical Status Yes AMOXICILLIN MODERATE MODERATE Yes HYDROCODONE-ACETAMINOPHEN MODERATE MODERATE Yes LISINOPRIL UNKNOWN UNKNOWN Yes TETANUS IMMUNE GLOBULIN (PF) UNKNOWN UNKNOWN Yes ZOCOR MODERATE MODERATE Yes Tetanus Vaccines Toxoid [id number] Drug Allergy Severe N/A 12/17/2011 Yes Tetanus Vaccines and Toxoid [id number] Drug Allergy Severe N/A 12/17/2011 Yes ampicillin [id number] Drug Allerg y Unknown N/A 12/20/2015 Medications Medication Packaging Start Date St op Date Route Dosage Sig NORMAL SALINE 1000CC IV BAG INJ 0.9 % (NS 1000CC IV BAG) ml 03/23/2019 04/07/2019 CONTINUOUSEVERY 0 Hour ACETAMINOPHEN ORAL TABLET 325mg(Tylenol) MG 03/24/2019 04/22/2019 PRN EVERY 6 Hour CLONIDINE TAB 0.1 MG (CATAPRES) MG 03/24/2019 03/30/2019 PRN Q6H ACETAMINOPHEN SUPPOS SUP 650 MG (TYLENOL) MG 03/24/2019 03/31/2019 PRN Q4H ONDANSETRON VIAL INJ 4 MG/2CC (ZOFRAN 2CC VIAL) MG 03/24/2019 03/30/2019 PRN Q6H CALCIUM CARBONATE TAB 500 MG (TUMS) MG 03/24/2019 03/30/2019 PRN Q6H DIPHENHYDRAMINE CAP 25 MG (BENADRYL) MG 03/24/2019 03/30/2019 PRN Q6H MECLIZINE TAB 25 MG (ANTIVERT) MG 03/24/2019 03/31/2019 PRN Q12H ALUM/MAG/SIMETH 30CC LIQ (MYLANTA PLUS) cc 03/24/2019 04/03/2019 PRN Q4H GUAIFENESIN - DM LIQ (ROBITUSSIN DM) MLS 03/24/2019 03/31/2019 PRN Q4H GEMFIBROZIL TAB 600 MG (LOPID) MG 03/24/2019 04/22/2019 BID&0800,2000 QUETIAPINE TAB 25 MG (SEROQUEL) MG 03/24/2019 03/30/2019 BID&0800,2000 Docusate sodium 100mg oral capsule (COLACE ) MG 03/24/2019 04/22/2019 PRN BID METFORMIN TAB 500 MG (GLUCOPHAGE) MG 03/24/2019 03/30/2019 BID&0800,2000 GABAPENTIN CAP 300 MG (NEURONTIN) MG 03/24/2019 03/30/2019 TID&0800,1400,2000 IBUPROFEN TAB 800 MG (MOTRIN) MG 03/24/2019 03/31/2019 PRN TID INSULIN DETEMIR PEN INJ 100 UNITS/CC (LEVEMIR FLEXPEN) UNITS 03/24/2019 04/22/2019 BID&0800,2000 LACTULOSE SYRUP LIQ 20 GM/30 CC (CHRONULAC SYRUP) GM 03/24/2019 04/22/2019 BID&0800,2000 ALPRAZOLAM TAB 0.5 MG (XANAX) MG 03/24/2019 04/02/2019 Daily&0900 ASPIRIN 81MG CHEWABLE TAB 81 MG (BABY ASPI RIN) MG 03/24/2019 03/30/2019 Daily&0900 ENOXAPARIN SYRINGE INJ 40 MG (LOVENOX SYRI NGE) MG 03/24/2019 04/02/2019 Daily&0900 BISACODYL TAB 5 MG (DULCOLAX) MG 03/24/2019 03/30/2019 PRN Daily PANTOPRAZOLE TAB 40 MG (PROTONIX) MG 03/24/2019 03/30/2019 Daily&0900 POLYETHYLENE GLYCOL POWDER U D PWD (MIRALAX 17GM UNIT DOSE PAKS) gm 03/24/2019 03/30/2019 Daily&0900 Vitamin D-3 5,000 units oral capsule UNITS 03/24/2019 04/22/2019 Daily&0900 BISACODYL SUPPOS 10 MG (DULCOLAX SUPPOS) MG 03/24/2019 03/30/2019 PRN Daily CEFTRIAXONE PREMIX IV BAG IV 1 GM/50CC (ROCEPHIN PREMIX IV BAG) GM 03/24/2019 03/30/2019 Daily&0900 MILK OF INGRID FISCHER ml 03/24/2019 04/22/2019 PRN Daily CEFTRIAXONE PREMIX IV BAG IV 1 GM/50CC (ROCEPHIN PREMIX IV BAG) GM 03/24/2019 03/30/2019 Daily&1600 AMLODIPINE TAB 5 MG (NORVASC) MG 03/24/2019 03/30/2019 Daily&1800 BUPROPION SR TAB 150 MG (WELLBUTRIN SR) MG 03/24/2019 04/22/2019 QPM&2000 INSULIN DETEMIR PEN INJ 100 UNITS/CC (LEVEMIR FLEXPEN) UNITS 03/24/2019 04/23/2019 BID&0800,2000 ALPRAZOLAM TAB 1 MG (XANAX) MG 03/24/2019 04/02/2019 QHS&2100 MELATONIN TAB 3 MG (MELATONIN) MG 03/24/2019 04/22/2019 PRN QHS Problems Date Dx Coded Attending Type Code Diagnosis Diagnosed By 10/26/2009 Ot 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 12/18/2011 Ot 530.11 REF LUX ESOPHAGITIS 08/03/2013 MANNY TINEO MD Ot 564.00 UNSPEC CONSTIPATION 08/03/2013 MANNY TINEO MD Ot 789.00 ABDOMINAL PAIN, UNSPECIFIED SITE 08/02/2014 Ot 272.4 08/02/2014 Ot 433.30 08/02/2014 Ot 786.50 08/02/2014 Ot 272.4 08/02/2014 Ot 785.9 08/02/2014 Ot 786.50 08/02/2014 Ot 462 08/02/2014 Ot 787.20 08/02/2014 Ot 719.45 08/02/2014 Ot 724.1 08/02/2014 Ot 724.2 08/02/2014 Ot 719.45 08/02/2014 Ot 719.46 08/02/2014 Ot 785.9 08/02/2014 Ot 790.1 08/02/2014 Ot 789.01 08/02/2014 Ot V72.84 08/02/2014 RACHEL BAKER MD Ot 789.01 08/12/2014 Ot 272.4 08/12/2014 Ot 433.30 08/12/2014 Ot 786.50 08/12/2014 Ot 272.4 08/12/2014 Ot 785.9 08/12/2014 Ot 786.50 08/12/2014 Ot 462 08/12/2014 Ot 787.20 08/12/2014 Ot 719.45 08/12/2014 Ot 724.1 08/12/2014 Ot 724.2 08/12/2014 Ot 719.45 08/12/2014 Ot 719.46 08/12/2014 Ot 785.9 08/12/2014 Ot 790.1 08/12/2014 Ot 789.01 08/12/2014 Ot V72.84 08/12/2014 OLIVIA MALLORY, RACHEL Paula Ot 789.01 08/12/2014 EDD DENIS Ot 786.50 09/18/2014 BJ ECHEVERRIA SANDWICH MAKER Ot 789.00 2014 EDD DENIS Ot 786.50 05/13/2015 OLIVIA MALLORY, RACHEL Paula Ot M12.871 05/13/2015 OLIVIA MALLORY, RACHEL Paula Ot M12.872 06/02/2015 Ot M81.0 12/20/2015 Ot 462 ACUTE PHARYNGITIS 12/20/2015 Ot 787.20 DYS PHAGIA, UNSPECIFIED 12/20/2015 Ot 719.45 CINTHIA NT PAIN-PELVIS 12/20/2015 Ot 724.1 PAIN IN THORACIC SPINE 12/20/2015 Ot 724.2 LUMBAGO 12/20/2015 Ot 719.45 CINTHIA NT PAIN-PELVIS 12/20/2015 Ot 719.46 CINTHIA NT PAIN-L/LEG 12/20/2015 Ot 785.9 CARD IOVAS SYS SYMP NEC 12/20/2015 Ot 790.1 ELEV ATED SEDIMENT RATE 12/20/2015 Ot 789.01 ABD OMINAL PAIN, RIGHT UPPER QUADRANT 12/20/2015 Ot V72.84 EXA M PRE- OPERATIVE NOS 12/20/2015 OLIVIA MALLORY, RACHEL Paula Ot 789.01 ABDOMINAL PAIN, RIGHT UPPER QUADRANT 12/20/2015 EDD DENIS Ot 786.50 CHEST PAIN NOS 12/20/2015 BJ ECHEVERRIA S[employer]WICH MAKER Ot 789.00 ABDOMINAL PAIN, UNSPECIFIED SITE 12/20/2015 SCHRACHEL GARCIA MD Ot M12.871 OT SPECIFIC ARTHROPATHIES, NEC, RIGHT A 12/20/2015 RACHEL BAKER MD Ot M12.872 OTH SPECIFIC ARTHROPATHIES, NEC, LEFT AN 12/20/2015 Ot M81.0 AGE- RELATED OSTEOPOROSIS W/O CURRENT PAT 12/20/2015 RACHEL BAKER MD Ot E86.0 DEHYDRATION 12/20/2015 RACHEL BAKER MD Ot E87.1 HYPO-OSMOLALITY AND HYPONATREMIA 12/20/2015 RACHEL BAKER MD Ot E87.6 HYPOKALEMIA 12/21/2015 RACHEL BAKER MD Ot E86.0 DEHYDRATION 12/21/2015 RACHEL BAKER MD Ot E87.1 HYPO-OSMOLALITY AND HYPONATREMIA 12/21/2015 RACHEL BAKER MD Ot E87.6 HYPOKALEMIA 12/21/2015 SHERRILL TIWARI MD Ot D72.829 ELEVATED WHITE BLOOD CELL COUNT, UNSPECI 12/21/2015 SHERRILL TIWARI MD Ot E11 .9 TYPE 2 DIABETES MELLITUS WITHOUT COMPLIC 12/21/2015 SHERRILL TIWARI MD Ot E87 .6 HYPOKALEMIA 12/21/2015 SHERRILL TIWARI MD Ot F17.210 NICOTINE DEPENDENCE, CIGARETTES, UNCOMPL 12/21/2015 SHERRILL TIWARI MD Ot F41 .9 ANXIETY DISORDER, UNSPECIFIED 12/21/2015 SHERRILL TIWARI MD Ot I10 ESSENTIAL (PRIMARY) HYPERTENSION 12/21/2015 SHERRILL TIWARI MD Ot J44 .9 CHRONIC OBSTRUCTIVE PULMONARY DISEASE, U 12/21/2015 SHERRILL TIWARI MD Ot N28 .9 DISORDER OF KIDNEY AND URETER, UNSPECIFI 12/21/2015 SHERRILL TIWARI MD Ot R19 .7 DIARRHEA, UNSPECIFIED 12/21/2015 SHERRILL TIWARI MD Ot Z87.440 PERSONAL HISTORY OF URINARY (TRACT) INFE 12/21/2015 SHERRILL TIWARI MD Ot D72.829 ELEVATED WHITE BLOOD CELL COUNT, UNSPECI 12/21/2015 SHERRILL TIWARI MD Ot E11 .9 TYPE 2 DIABETES MELLITUS WITHOUT COMPLIC 12/21/2015 SHERRILL TIWARI MD Ot E86 .0 DEHYDRATION 12/21/2015 SHERRILL TIWARI MD Ot E87 .6 HYPOKALEMIA 12/21/2015 SHERRILL TIWARI MD Ot F17.210 NICOTINE DEPENDENCE, CIGARETTES, UNCOMPL 12/21/2015 SHERRILL TIWARI MD Ot F39 UNSPECIFIED MOOD [AFFECTIVE] DISORDER 12/21/2015 SHERRILL TIWARI MD Ot F41 .9 ANXIETY DISORDER, UNSPECIFIED 12/21/2015 SHERRILL TIWARI MD Ot I10 ESSENTIAL (PRIMARY) HYPERTENSION 12/21/2015 SHERRILL TIWARI MD Ot J44 .9 CHRONIC OBSTRUCTIVE PULMONARY DISEASE, U 12/21/2015 SHERRILL TIWARI MD Ot N28 .9 DISORDER OF KIDNEY AND URETER, UNSPECIFI 12/21/2015 SHERRILL TIWARI MD Ot R19 .7 DIARRHEA, UNSPECIFIED 12/21/2015 SHERRILL TIWARI MD Ot Z87.440 PERSONAL HISTORY OF URINARY (TRACT) INFE 12/21/2015 SHERRILL TIWARI MD Ot D72.829 ELEVATED WHITE BLOOD CELL COUNT, UNSPECI 12/21/2015 SHERRILL TIWARI MD Ot E11 .9 TYPE 2 DIABETES MELLITUS WITHOUT COMPLIC 12/21/2015 SHERRILL TIWARI MD Ot E87 .6 HYPOKALEMIA 12/21/2015 SHERRILL TIWARI MD Ot F17.210 NICOTINE DEPENDENCE, CIGARETTES, UNCOMPL 12/21/2015 SHERRILL TIWARI MD Ot F41 .9 ANXIETY DISORDER, UNSPECIFIED 12/21/2015 SHRERILL TIWARI MD Ot I10 ESSENTIAL (PRIMARY) HYPERTENSION 12/21/2015 SHERRILL TIWARI MD Ot J44 .9 CHRONIC OBSTRUCTIVE PULMONARY DISEASE, U 12/21/2015 SHERRILL TIWARI MD Ot N28 .9 DISORDER OF KIDNEY AND URETER, UNSPECIFI 12/21/2015 SHERRILL TIWARI MD Ot R19 .7 DIARRHEA, UNSPECIFIED 12/21/2015 SHERRILL TIWARI MD Ot Z87.440 PERSONAL HISTORY OF URINARY (TRACT) INFE 12/28/2015 SHERRILL TIWARI MD Ot D72.829 ELEVATED WHITE BLOOD CELL COUNT, UNSPECI 12/28/2015 SHERRILL TIWARI MD Ot E11 .9 TYPE 2 DIABETES MELLITUS WITHOUT COMPLIC 12/28/2015 SHERRILL TIWARI MD Ot E87 .6 HYPOKALEMIA 12/28/2015 SHERRILL TIWARI MD Ot F17.210 NICOTINE DEPENDENCE, CIGARETTES, UNCOMPL 12/28/2015 SHERRILL TIWARI MD Ot F41 .9 ANXIETY DISORDER, UNSPECIFIED 12/28/2015 SHERRILL TIWARI MD Ot I10 ESSENTIAL (PRIMARY) HYPERTENSION 12/28/2015 SHERRILL TIWARI MD Ot J44 .9 CHRONIC OBSTRUCTIVE PULMONARY DISEASE, U 12/28/2015 SHERRILL TIWARI MD Ot N28 .9 DISORDER OF KIDNEY AND URETER, UNSPECIFI 12/28/2015 SHERRILL TIWARI MD Ot R19 .7 DIARRHEA, UNSPECIFIED 12/28/2015 SHERRILL TIWARI MD Ot Z87.440 PERSONAL HISTORY OF URINARY (TRACT) INFE 12/28/2015 SHERRILL TIWARI MD Ot D72.829 ELEVATED WHITE BLOOD CELL COUNT, UNSPECI 12/28/2015 SHERRILL TIWARI MD Ot E11 .9 TYPE 2 DIABETES MELLITUS WITHOUT COMPLIC 12/28/2015 SHERRILL TIWARI MD Ot E87 .6 HYPOKALEMIA 12/28/2015 SHERRILL TIWARI MD Ot F17.210 NICOTINE DEPENDENCE, CIGARETTES, UNCOMPL 12/28/2015 SHERRILL TIWARI MD Ot F41 .9 ANXIETY DISORDER, UNSPECIFIED 12/28/2015 SHERRILL TIWARI MD Ot I10 ESSENTIAL (PRIMARY) HYPERTENSION 12/28/2015 SHERRILL TIWARI MD Ot J44 .9 CHRONIC OBSTRUCTIVE PULMONARY DISEASE, U 12/28/2015 SHERRILL TIWARI MD Ot N28 .9 DISORDER OF KIDNEY AND URETER, UNSPECIFI 12/28/2015 SHERRILL TIWARI MD Ot R19 .7 DIARRHEA, UNSPECIFIED 12/28/2015 SHERRILL TIWARI MD Ot Z87.440 PERSONAL HISTORY OF URINARY (TRACT) INFE 12/29/2015 SHERRILL TIWARI MD Ot D72.829 ELEVATED WHITE BLOOD CELL COUNT, UNSPECI 12/29/2015 SHERRILL TIWARI MD Ot E11 .9 TYPE 2 DIABETES MELLITUS WITHOUT COMPLIC 12/29/2015 SHERRILL TIWARI MD Ot E87 .6 HYPOKALEMIA 12/29/2015 SHERRILL TIWARI MD Ot F17.210 NICOTINE DEPENDENCE, CIGARETTES, UNCOMPL 12/29/2015 SHERRILL TIWARI MD Ot F41 .9 ANXIETY DISORDER, UNSPECIFIED 12/29/2015 TE MALLORY, SHERRILL De La Rosa Ot I10 ESSENTIAL (PRIMARY) HYPERTENSION 12/29/2015 TE MALLORY, SHERRILL De [place] Ot J44 .9 CHRONIC OBSTRUCTIVE PULMONARY DISEASE, U 12/29/2015 SHERRILL TIWARI MD Ot N28 .9 DISORDER OF KIDNEY AND URETER, UNSPECIFI 12/29/2015 SHERRILL TIWARI MD Ot R19 .7 DIARRHEA, UNSPECIFIED 12/29/2015 SHERRILL TIWARI MD Ot Z87.440 PERSONAL HISTORY OF URINARY (TRACT) INFE 01/18/2016 JANIS DO VALE D Ot K21. 9 GASTRO-ESOPHAGEAL REFLUX DISEASE WITHOUT 01/18/2016 BRUCE DO VALE D Ot R19. 7 DIARRHEA, UNSPECIFIED 01/18/2016 BRUCE DO VALE D Ot Z01.818 ENCOUNTER FOR OTHER PREPROCEDURAL EXAMIN 01/19/2016 BRUCE DO VALE D Ot K21. 9 GASTRO-ESOPHAGEAL REFLUX DISEASE WITHOUT 01/19/2016 BRUCE DO VALE D Ot R19. 7 DIARRHEA, UNSPECIFIED 01/19/2016 BRUCE DO, VALE D Ot Z01.818 ENCOUNTER FOR OTHER PREPROCEDURAL EXAMIN 01/26/2016 BRUCE DO VALE D Ot K21. 9 GASTRO-ESOPHAGEAL REFLUX DISEASE WITHOUT 01/26/2016 BRUCE DO VALE D Ot R19. 7 DIARRHEA, UNSPECIFIED 01/26/2016 BRUCE DO VALE D Ot Z53. 8 PROCEDURE AND TREATMENT NOT CARRIED OUT 01/26/2016 BRUCE DO VALE D Ot K21. 9 GASTRO-ESOPHAGEAL REFLUX DISEASE WITHOUT 01/26/2016 BRUCE DO VALE D Ot R19. 7 DIARRHEA, UNSPECIFIED 01/26/2016 BRUCE DO VALE D Ot Z53. 8 PROCEDURE AND TREATMENT NOT CARRIED OUT 02/03/2016 BRUCE DO VALE D Ot K21. 9 GASTRO-ESOPHAGEAL REFLUX DISEASE WITHOUT 02/03/2016 BRUCE DO VALE D Ot R19. 7 DIARRHEA, UNSPECIFIED 02/03/2016 BRUCE DO VALE D Ot Z01.818 ENCOUNTER FOR OTHER PREPROCEDURAL EXAMIN 02/08/2016 BRUCE DO VALE D Ot K21. 9 GASTRO-ESOPHAGEAL REFLUX DISEASE WITHOUT 02/08/2016 BRUCE DO, VALE D Ot R19. 7 DIARRHEA, UNSPECIFIED 02/08/2016 VALE BRUCE DO Ot Z53. 8 PROCEDURE AND TREATMENT NOT CARRIED OUT 02/15/2016 VALE BRUCE DO Ot K21. 9 GASTRO-ESOPHAGEAL REFLUX DISEASE WITHOUT 02/15/2016 VALE BRUCE DO Ot R19. 7 DIARRHEA, UNSPECIFIED 02/15/2016 VALE BRUCE DO Ot Z53. 8 PROCEDURE AND TREATMENT NOT CARRIED OUT 12/04/2016 BJ ECHE[employer]RI[employer] SANDW[employer] MAKER Ot M79.605 PAIN IN LEFT LEG 12/10/2016 JACKI BOBNYA Rouse SANDWICH MAKER Ot M79.604 PAIN IN RIGHT LEG 12/10/2016 BJ [employer] S[employer] MAKER Ot M79.605 PAIN IN LEFT LEG 12/26/2016 BJ ECHE[employer] SANDWICH MAKER Ot M79.604 PAIN IN RIGHT LEG 12/26/2016 BJ [employer]HE[employer] S[employer] MAKER Ot M79.605 PAIN IN LEFT LEG 01/04/2017 Ot 719.46 CINTHIA NT PAIN-L/LEG 01/04/2017 Ot 785.9 CARD IOVAS SYS SYMP NEC 01/04/2017 Ot 790.1 ELEV ATED SEDIMENT RATE 01/04/2017 Ot 789.01 ABD OMINAL PAIN, RIGHT UPPER QUADRANT 01/04/2017 Ot V72.84 EXA M PRE- OPERATIVE NOS 01/04/2017 OLIVIA MALLORY, RACHEL Paula Ot 789.01 ABDOMINAL PAIN, RIGHT UPPER QUADRANT 01/04/2017 EDD DENIS COTA Ot 786.50 CHEST PAIN NOS 01/04/2017 BJ ECHEVERRIA APRN Ot 789.00 ABDOMINAL PAIN, UNSPECIFIED SITE 01/04/2017 RACHEL BAKER MD Ot M12.871 OTH SPECIFIC ARTHROPATHIES, NEC, RIGHT A 01/04/2017 RACHEL BAKER MD Ot M12.872 OTH SPECIFIC ARTHROPATHIES, NEC, LEFT AN 01/04/2017 Ot M81.0 AGE- RELATED OSTEOPOROSIS W/O CURRENT PAT 01/04/2017 RACHEL BAKER MD Ot E86.0 DEHYDRATION 01/04/2017 RACHEL BAKER MD Ot E87.1 HYPO-OSMOLALITY AND HYPONATREMIA 01/04/2017 RACHEL BAKER MD Ot E87.6 HYPOKALEMIA 01/04/2017 VALE BRUCE DO Ot K21. 9 GASTRO-ESOPHAGEAL REFLUX DISEASE WITHOUT 01/04/2017 VALE BURCE DO Ot R19. 7 DIARRHEA, UNSPECIFIED 01/04/2017 VALE BRUCE DO Ot Z53. 8 PROCEDURE AND TREATMENT NOT CARRIED OUT 01/04/2017 JACKI BJ Rouse SANDWICH MAKER Ot M79.604 PAIN IN RIGHT LEG 01/04/2017 BJ ECHEVERRIA SANDWICH MAKER Ot M79.605 PAIN IN LEFT LEG 01/04/2017 ODIN AGUIRRE Ot B35.3 TINEA PEDIS 01/04/2017 ODIN AGUIRRE Ot E11.51 TYPE 2 DIABETES W DIABETIC PERIPHERAL AN 01/04/2017 ODIN AGUIRRE Ot F03.90 UNSPECIFIED DEMENTIA WITHOUT BEHAVIORAL 01/04/2017 ODIN AGUIRRE Ot F17.210 NICOTINE DEPENDENCE, CIGARETTES, UNCOMPL 01/04/2017 ODIN AGUIRRE Ot F41.9 ANXIETY DISORDER, UNSPECIFIED 01/04/2017 ODIN AGUIRRE Ot I 10 ESSENTIAL (PRIMARY) HYPERTENSION 01/04/2017 ODIN AGUIRRE Ot I73.9 PERIPHERAL VASCULAR DISEASE, UNSPECIFIED 01/04/2017 ODIN AGUIRRE Ot J44.9 CHRONIC OBSTRUCTIVE PULMONARY DISEASE, U 01/04/2017 ODIN AGUIRRE Ot M19.90 UNSPECIFIED OSTEOARTHRITIS, UNSPECIFIED 01/04/2017 ODIN AGUIRRE Ot Z79.82 GAMES DEALER (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 OF ASPIRIN 01/04/2017 ODIN AGUIRRE Ot Z79.84 INTERMEDIATE (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 OF ORAL HYPOGLYC 01/04/2017 ODIN AGUIRRE Ot Z82.49 FAMILY HX OF ISCHEM HEART DIS AND OTH DI 01/04/2017 ODIN AGUIRRE Ot Z87.19 PERSONAL HISTORY OF OTHER DISEASES OF TH 01/04/2017 ODIN AGUIRRE Ot Z87.440 PERSONAL HISTORY OF URINARY (TRACT) INFE 01/04/2017 ODIN AGUIRRE Ot Z90.710 ACQUIRED ABSENCE OF BOTH CERVIX AND UTER 01/08/2017 ODIN AGUIRRE Ot B35.3 TINEA PEDIS 01/08/2017 CHAU PA, ODIN L Ot E11.51 TYPE 2 DIABETES W DIABETIC PERIPHERAL AN 01/08/2017 ODIN AGUIRRE Ot F03.90 UNSPECIFIED DEMENTIA WITHOUT BEHAVIORAL 01/08/2017 ODIN AGUIRRE Ot F17.210 NICOTINE DEPENDENCE, CIGARETTES, UNCOMPL 01/08/2017 ODIN AGUIRRE Ot F41.9 ANXIETY DISORDER, UNSPECIFIED 01/08/2017 ODIN AGUIRRE Ot I 10 ESSENTIAL (PRIMARY) HYPERTENSION 01/08/2017 ODIN AGUIRRE Ot I73.9 PERIPHERAL VASCULAR DISEASE, UNSPECIFIED 01/08/2017 ODIN AGUIRRE Ot J44.9 CHRONIC OBSTRUCTIVE PULMONARY DISEASE, U 01/08/2017 ODIN AGUIRRE Ot M19.90 UNSPECIFIED OSTEOARTHRITIS, UNSPECIFIED 01/08/2017 ODIN AGUIRRE Ot 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.82 GAMES DEALER (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 OF ASPIRIN 01/08/2017 ODIN AGUIRRE Ot Z79.84 GAMES DEALER (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 OF ORAL HYPOGLYC 01/08/2017 ODIN AGUIRRE Ot Z82.49 FAMILY HX OF ISCHEM HEART DIS AND OTH DI 01/08/2017 ODIN AGUIRRE Ot Z87.19 PERSONAL HISTORY OF OTHER DISEASES OF TH 01/08/2017 ODIN AGUIRRE Ot Z87.440 PERSONAL HISTORY OF URINARY (TRACT) INFE 01/08/2017 ODIN AGUIRRE Ot Z90.710 ACQUIRED ABSENCE OF BOTH CERVIX AND UTER 02/08/2017 CHARITY DAN Ot 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 02/08/2017 CHARITY DAN Ot D72.829 ELEVATED WHITE BLOOD CELL COUNT, UNSPECI 02/08/2017 CHARITY DAN Ot E11.43 TYPE 2 DIABETES W DIABETIC AUTONOMIC (PO 02/08/2017 CHARITY DAN Ot E78.00 PURE HYPERCHOLESTEROLEMIA, UNSPECIFIED 02/08/2017 CHARITY DAN Ot F17.210 NICOTINE DEPENDENCE, CIGARETTES, UNCOMPL 02/08/2017 CHARITY DAN Ot F32.9 MAJOR DEPRESSIVE DISORDER, SINGLE EPISOD 02/08/2017 CHARITY DAN Ot F41.9 ANXIETY DISORDER, UNSPECIFIED 02/08/2017 CHARITY DAN Ot I10 ESSENTIAL (PRIMARY) HYPERTENSION 02/08/2017 NICHARITY Ot I25.10 ATHSCL HEART DISEASE OF [place] CORONARY 02/08/2017 NI, MUKUNDHALLE Nasim Ot I65.22 OCCLUSION AND STENOSIS OF LEFT CAROTID A 02/08/2017 NI, CHARITY Rouse Ot J44.9 CHRONIC OBSTRUCTIVE PULMONARY DISEASE, U 02/08/2017 NI, MUKUNDHALLE Nasim Ot K21.9 GASTRO-ESOPHAGEAL REFLUX DISEASE WITHOUT 02/08/2017 CHARITY DAN Ot M81.0 AGE- RELATED OSTEOPOROSIS W/O CURRENT PAT 02/08/2017 CHARITY DAN Ot Z79.899 OTHER GAMES DEALER (CURRENT) DRUG THERAPY 02/08/2017 CHARITY DAN N Ot Z90.710 ACQUIRED ABSENCE OF BOTH CERVIX AND UTER 02/26/2017 CHARITY DAN Ot 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 02/26/2017 CHARITY DAN Ot D72.829 ELEVATED WHITE BLOOD CELL COUNT, UNSPECI 02/26/2017 CHARITY DAN Ot E11.43 TYPE 2 DIABETES W DIABETIC AUTONOMIC (PO 02/26/2017 CHARITY DAN Ot E78.00 PURE HYPERCHOLESTEROLEMIA, UNSPECIFIED 02/26/2017 CHARITY DAN Ot F17.210 NICOTINE DEPENDENCE, CIGARETTES, UNCOMPL 02/26/2017 CHARITY DAN Ot F32.9 MAJOR DEPRESSIVE DISORDER, SINGLE EPISOD 02/26/2017 CHARITY DAN Ot F41.9 ANXIETY DISORDER, UNSPECIFIED 02/26/2017 MUKUND DANHALLE Nasim Ot I10 ESSENTIAL (PRIMARY) HYPERTENSION 02/26/2017 CHARITY DAN Ot I25.10 ATHSCL HEART DISEASE OF [place] CORONARY 02/26/2017 CHARITY DAN Ot I65.22 OCCLUSION AND STENOSIS OF LEFT CAROTID A 02/26/2017 CHARITY DAN Ot J44.9 CHRONIC OBSTRUCTIVE PULMONARY DISEASE, U 02/26/2017 CHARITY DAN Ot K21.9 GASTRO-ESOPHAGEAL REFLUX DISEASE WITHOUT 02/26/2017 CHARITY DAN Ot M81.0 AGE- RELATED OSTEOPOROSIS W/O CURRENT PAT 02/26/2017 CHARITY DAN Ot Z79.899 OTHER GAMES DEALER (CURRENT) DRUG THERAPY 02/26/2017 CHARITY DAN Ot Z90.710 ACQUIRED ABSENCE OF BOTH CERVIX AND UTER 05/08/2017 CHARITY DAN Ot 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 05/08/2017 CHARITY DAN Ot D72.829 ELEVATED WHITE BLOOD CELL COUNT, UNSPECI 05/08/2017 CHARITY DAN Ot E11.43 TYPE 2 DIABETES W DIABETIC AUTONOMIC (PO 05/08/2017 CHARITY DAN Ot E78.00 PURE HYPERCHOLESTEROLEMIA, UNSPECIFIED 05/08/2017 CHARITY DAN Ot F17.210 NICOTINE DEPENDENCE, CIGARETTES, UNCOMPL 05/08/2017 CHARITY DAN Ot F32.9 MAJOR DEPRESSIVE DISORDER, SINGLE EPISOD 05/08/2017 CHARITY DAN Ot F41.9 ANXIETY DISORDER, UNSPECIFIED 05/08/2017 CHARITY DAN Ot I10 ESSENTIAL (PRIMARY) HYPERTENSION 05/08/2017 CHARITY DAN Ot I25.10 ATHSCL HEART DISEASE OF [place] CORONARY 05/08/2017 CHARITY DAN Ot I65.22 OCCLUSION AND STENOSIS OF LEFT CAROTID A 05/08/2017 CHARITY DAN Ot J44.9 CHRONIC OBSTRUCTIVE PULMONARY DISEASE, U 05/08/2017 CHARITY DAN Ot K21.9 GASTRO-ESOPHAGEAL REFLUX DISEASE WITHOUT 05/08/2017 CHARITY DAN Ot M81.0 AGE- RELATED OSTEOPOROSIS W/O CURRENT PAT 05/08/2017 CHARITY DAN Ot Z79.899 OTHER INTERMEDIATE (CURRENT) DRUG THERAPY 05/08/2017 CHARITY DAN Ot Z90.710 ACQUIRED ABSENCE OF BOTH CERVIX AND UTER 05/09/2017 CHARITY DAN Ot 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 05/09/2017 CHARITY DAN Ot D72.829 ELEVATED WHITE BLOOD CELL COUNT, UNSPECI 05/09/2017 CHARITY DAN Ot E11.43 TYPE 2 DIABETES W DIABETIC AUTONOMIC (PO 05/09/2017 CHARITY DAN Ot E78.00 PURE HYPERCHOLESTEROLEMIA, UNSPECIFIED 05/09/2017 CHARITY DAN Ot F17.210 NICOTINE DEPENDENCE, CIGARETTES, UNCOMPL 05/09/2017 CHARITY DAN Ot F32.9 MAJOR DEPRESSIVE DISORDER, SINGLE EPISOD 05/09/2017 CHARITY DAN Ot F41.9 ANXIETY DISORDER, UNSPECIFIED 05/09/2017 CHARITY DAN Nasim Ot I10 ESSENTIAL (PRIMARY) HYPERTENSION 05/09/2017 CHARITY DAN Nasim Ot I25.10 ATHSCL HEART DISEASE OF [place] CORONARY 05/09/2017 CHARITY DAN Nasim Ot I65.22 OCCLUSION AND STENOSIS OF LEFT CAROTID A 05/09/2017 CHARITY DAN Nasim Ot J44.9 CHRONIC OBSTRUCTIVE PULMONARY DISEASE, U 05/09/2017 CHARITY DAN Nasim Ot K21.9 GASTRO-ESOPHAGEAL REFLUX DISEASE WITHOUT 05/09/2017 CHARITY DAN Nasim Ot M81.0 AGE- RELATED OSTEOPOROSIS W/O CURRENT PAT 05/09/2017 CHARITY DAN Nasim Ot Z79.899 OTHER INTERMEDIATE (CURRENT) DRUG THERAPY 05/09/2017 CHARITY DAN Nasim Ot Z90.710 ACQUIRED ABSENCE OF BOTH CERVIX AND UTER 05/22/2017 ALLISON RANDALL DO Ot E11.9 TYPE 2 DIABETES MELLITUS WITHOUT COMPLIC 05/22/2017 ALLISON RANDALL DO Ot I10 ESSENTIAL (PRIMARY) HYPERTENSION 05/22/2017 ALLISON RANDALL DO Ot I25.10 ATHSCL HEART DISEASE OF [place] CORONARY 11/01/2017 Ot V76.12 11/01/2017 Ot 272.4 HYPE RLIPIDEMIA NEC/NOS 11/01/2017 Ot 433.30 MUL T BILTRAL ARTERY OCCLUSION WO CEREBRA 11/01/[address] PAIN NOS 11/01/2017 Ot 272.4 HYPE RLIPIDEMIA NEC/NOS 11/01/2017 Ot 785.9 CARD IOVAS SYS SYMP NEC 11/01/[address] PAIN NOS 11/01/2017 Ot 462 ACUTE PHARYNGITIS 11/01/2017 Ot 787.20 DYS PHAGIA, UNSPECIFIED 11/01/2017 Ot 719.45 CINTHIA NT PAIN-PELVIS 11/01/2017 Ot 724.1 PAIN IN THORACIC SPINE 11/01/2017 Ot 724.2 LUMBAGO 11/01/2017 Ot 719.45 CINTHIA NT PAIN-PELVIS 11/01/2017 Ot 719.46 CINTHIA NT PAIN-L/LEG 11/01/2017 Ot 785.9 CARD IOVAS SYS SYMP NEC 11/01/2017 Ot 790.1 ELEV ATED SEDIMENT RATE 11/01/2017 Ot 789.01 ABD OMINAL PAIN, RIGHT UPPER QUADRANT 11/01/2017 OLIVIA MALLORY, RACHEL Paula Ot 789.01 ABDOMINAL PAIN, RIGHT UPPER QUADRANT 11/01/2017 EDD DENIS Ot 786.50 CHEST PAIN NOS 11/01/2017 BJ [employer]KER Ot 789.00 ABDOMINAL PAIN, UNSPECIFIED SITE 11/01/2017 OLIVIA MALLORY, RACHEL Paula Ot M12.871 OTH SPECIFIC ARTHROPATHIES, NEC, RIGHT A 11/01/2017 OLIVIA MALLORY, RACHEL Paula Ot M12.872 OTH SPECIFIC ARTHROPATHIES, NEC, LEFT AN 11/01/2017 Ot M81.0 AGE- RELATED OSTEOPOROSIS W/O CURRENT PAT 11/01/2017 OLIVIA MALLORY, RACHEL Paula Ot E86.0 DEHYDRATION 11/01/2017 RACHEL BAKER MD Ot E87.1 HYPO-OSMOLALITY AND HYPONATREMIA 11/01/2017 RACHEL BAKER MD Ot E87.6 HYPOKALEMIA 11/01/2017 VALE BRUCE DO Ot K21. 9 GASTRO-ESOPHAGEAL REFLUX DISEASE WITHOUT 11/01/2017 VALE BRUCE DO Ot R19. 7 DIARRHEA, UNSPECIFIED 11/01/2017 VALE BRUCE DO Ot Z53. 8 PROCEDURE AND TREATMENT NOT CARRIED OUT 11/01/2017 BJ [employer] Ot M79.604 PAIN IN RIGHT LEG 11/01/2017 BJ [employer] Ot M79.605 PAIN IN LEFT LEG 11/01/2017 ALLISON RANDALL DO S Ot E11.9 TYPE 2 DIABETES MELLITUS WITHOUT COMPLIC 11/01/2017 ORENDPÉREZ ESCOTO, ALLISON S Ot I10 ESSENTIAL (PRIMARY) HYPERTENSION 11/01/2017 TONIA ESCOTO, ALLISON S Ot I25.10 ATHSCL HEART DISEASE OF [place] CORONARY 11/01/2017 OLIVIA MALLORY, RACHEL Paula Ot 789.01 ABDOMINAL PAIN, RIGHT UPPER QUADRANT 11/01/2017 EDD DENIS Ot 786.50 CHEST PAIN NOS 11/01/2017 BJ [employer] Ot 789.00 ABDOMINAL PAIN, UNSPECIFIED SITE 11/01/2017 OLIVIA MALLORY, RACHEL Paula Ot M12.871 OTH SPECIFIC ARTHROPATHIES, NEC, RIGHT A 11/01/2017 OLIVIA MALLORY, RACHEL Paula Ot M12.872 OTH SPECIFIC ARTHROPATHIES, NEC, LEFT AN 11/01/2017 Ot M81.0 AGE- RELATED OSTEOPOROSIS W/O CURRENT PAT 11/01/2017 OLIVIA MALLORY, RACHEL Paula Ot E86.0 DEHYDRATION 11/01/2017 OLIVIA MALLORY, RACHEL Paula Ot E87.1 HYPO-OSMOLALITY AND HYPONATREMIA 11/01/2017 OLIVIA MALLORY, RACHEL Paula Ot E87.6 HYPOKALEMIA 11/01/2017 BRUCE DOVALE D Ot K21. 9 GASTRO-ESOPHAGEAL REFLUX DISEASE WITHOUT 11/01/2017 BRUCE DO VALE D Ot R19. 7 DIARRHEA, UNSPECIFIED 11/01/2017 BRUCE DOVALE D Ot Z53. 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 11/01/2017 CHARITY DAN Ot D72.829 ELEVATED WHITE BLOOD CELL COUNT, UNSPECI 11/01/2017 CHARITY DAN Ot E11.43 TYPE 2 DIABETES W DIABETIC AUTONOMIC (PO 11/01/2017 CHARITY DAN Ot E78.00 PURE HYPERCHOLESTEROLEMIA, UNSPECIFIED 11/01/2017 CHARITY DAN Ot F17.210 NICOTINE DEPENDENCE, CIGARETTES, UNCOMPL 11/01/2017 CHARITY DAN Ot F32.9 MAJOR DEPRESSIVE DISORDER, SINGLE EPISOD 11/01/2017 CHARITY DAN Ot F41.9 ANXIETY DISORDER, UNSPECIFIED 11/01/2017 CHARITY DAN Ot I10 ESSENTIAL (PRIMARY) HYPERTENSION 11/01/2017 CHARITY DAN Ot I25.10 ATHSCL HEART DISEASE OF [place] CORONARY 11/01/2017 CHARITY DAN Ot I65.22 OCCLUSION AND STENOSIS OF LEFT CAROTID A 11/01/2017 CHARITY ADN Ot J44.9 CHRONIC OBSTRUCTIVE PULMONARY DISEASE, U 11/01/2017 CHARITY DAN Ot K21.9 GASTRO-ESOPHAGEAL REFLUX DISEASE WITHOUT 11/01/2017 CHARITY DAN Ot M81.0 AGE- RELATED OSTEOPOROSIS W/O CURRENT PAT 11/01/2017 CHARITY DAN Ot Z79.899 OTHER GAMES DEALER (CURRENT) DRUG THERAPY 11/01/2017 CHARITY DAN Ot Z90.710 ACQUIRED ABSENCE OF BOTH CERVIX AND UTER 05/02/2018 EDD DENIS Ot 786.50 CHEST PAIN NOS 05/02/2018 BJ ECHEVERRIA APRN Ot 789.00 ABDOMINAL PAIN, UNSPECIFIED SITE 05/02/2018 OLIVIA MALLORY, RACHEL Paula Ot M12.871 OTH SPECIFIC ARTHROPATHIES, NEC, RIGHT A 05/02/2018 RACHEL BAKER MD Ot M12.872 OTH SPECIFIC ARTHROPATHIES, NEC, LEFT AN 05/02/2018 Ot M81.0 AGE- RELATED OSTEOPOROSIS W/O CURRENT PAT 05/02/2018 OLIVIA MALLORY, RACHEL Paula Ot E86.0 DEHYDRATION 05/02/2018 OLIVIA MALLORY, RACHEL Paula Ot E87.1 HYPO-OSMOLALITY AND HYPONATREMIA 05/02/2018 OLIVIA MALLORY, RACHEL Paula Ot E87.6 HYPOKALEMIA 05/02/2018 VALE BRUCE DO Ot K21. 9 GASTRO-ESOPHAGEAL REFLUX DISEASE WITHOUT 05/02/2018 VALE BRUCE DO Ot R19. 7 DIARRHEA, UNSPECIFIED 05/02/2018 VALE BRUCE DO Ot Z53. 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 05/02/2018 CHARITY DAN Nasim Ot D72.829 ELEVATED WHITE BLOOD CELL COUNT, UNSPECI 05/02/2018 CHARITY DAN Nasim Ot E11.43 TYPE 2 DIABETES W DIABETIC AUTONOMIC (PO 05/02/2018 CHARITY DAN Nasim Ot E78.00 PURE HYPERCHOLESTEROLEMIA, UNSPECIFIED 05/02/2018 CHARITY DAN Nasim Ot F17.210 NICOTINE DEPENDENCE, CIGARETTES, UNCOMPL 05/02/2018 CHARITY DAN Nasim Ot F32.9 MAJOR DEPRESSIVE DISORDER, SINGLE EPISOD 05/02/2018 CHARITY DAN Nasim Ot F41.9 ANXIETY DISORDER, UNSPECIFIED 05/02/2018 CHARITY DAN Nasim Ot I10 ESSENTIAL (PRIMARY) HYPERTENSION 05/02/2018 CHARITY DAN Nasim Ot I25.10 ATHSCL HEART DISEASE OF [place] CORONARY 05/02/2018 CHARITY DAN Nasim Ot I65.22 OCCLUSION AND STENOSIS OF LEFT CAROTID A 05/02/2018 CHARITY DAN Nasim Ot J44.9 CHRONIC OBSTRUCTIVE PULMONARY DISEASE, U 05/02/2018 CHARITY DAN Nasim Ot K21.9 GASTRO-ESOPHAGEAL REFLUX DISEASE WITHOUT 05/02/2018 CHARITY DAN Nasim Ot M81.0 AGE- RELATED OSTEOPOROSIS W/O CURRENT PAT 05/02/2018 CHARITY DAN Nasim Ot Z79.899 OTHER INTERMEDIATE (CURRENT) DRUG THERAPY 05/02/2018 CHARITY DAN Nasim Ot Z90.710 ACQUIRED ABSENCE OF BOTH CERVIX AND UTER 05/05/2018 OLIVIA MALLORY, RACHEL Paula Ot M19.012 PRIMARY OSTEOARTHRITIS, LEFT SHOULDER 05/08/2018 RACHEL BAKER MD Ot M19.012 PRIMARY OSTEOARTHRITIS, LEFT SHOULDER 05/08/2018 RACHEL BAKER MD Ot M75.102 UNSP ROTATR-CUFF TEAR/RUPTR OF LEFT SHOU 05/16/2018 RACHEL BAKER MD Ot M19.012 PRIMARY OSTEOARTHRITIS, LEFT SHOULDER 06/02/2018 RACHEL BAKER MD Ot M19.012 PRIMARY OSTEOARTHRITIS, LEFT SHOULDER 06/02/2018 RACHEL BAKER MD Ot M75.102 UNSP ROTATR-CUFF TEAR/RUPTR OF LEFT SHOU 07/08/2018 EDD DENIS COTA Ot 786.50 CHEST PAIN NOS 07/08/2018 ECHEVERRIABOBNYA Rouse SANDWICH MAKER Ot 789.00 ABDOMINAL PAIN, UNSPECIFIED SITE 07/08/2018 OLIVIA MALLORY, RACHEL Paula Ot M12.871 OTH SPECIFIC ARTHROPATHIES, NEC, RIGHT A 07/08/2018 OLIVIA MALLORY, RACHEL Paula Ot M12.872 OTH SPECIFIC ARTHROPATHIES, NEC, LEFT AN 07/08/2018 Ot M81.0 AGE- RELATED OSTEOPOROSIS W/O CURRENT PAT 07/08/2018 OLIVIA MALLORY, RACHEL Paula Ot E86.0 DEHYDRATION 07/08/2018 OLIVIA MALLORY, RACHEL Paula Ot E87.1 HYPO-OSMOLALITY AND HYPONATREMIA 07/08/2018 OLIVIA MALLORY, RACHEL Paula Ot E87.6 HYPOKALEMIA 07/08/2018 VALE BRUCE DO Ot K21. 9 GASTRO-ESOPHAGEAL REFLUX DISEASE WITHOUT 07/08/2018 VALE BRUCE DO Ot R19. 7 DIARRHEA, UNSPECIFIED 07/08/2018 VALE BRUCE DO Ot Z53. 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 07/08/2018 CHARITY DAN Ot D72.829 ELEVATED WHITE BLOOD CELL COUNT, UNSPECI 07/08/2018 CHARITY DAN Ot E11.43 TYPE 2 DIABETES W DIABETIC AUTONOMIC (PO 07/08/2018 CHARITY DAN Ot E78.00 PURE HYPERCHOLESTEROLEMIA, UNSPECIFIED 07/08/2018 CHARITY DAN Ot F17.210 NICOTINE DEPENDENCE, CIGARETTES, UNCOMPL 07/08/2018 CHARITY DAN Ot F32.9 MAJOR DEPRESSIVE DISORDER, SINGLE EPISOD 07/08/2018 CHARITY DAN Nasim Ot F41.9 ANXIETY DISORDER, UNSPECIFIED 07/08/2018 CHARITY DAN Nasim Ot I10 ESSENTIAL (PRIMARY) HYPERTENSION 07/08/2018 CHARITY DAN Nasim Ot I25.10 ATHSCL HEART DISEASE OF [place] CORONARY 07/08/2018 CHARITY DAN Nasim Ot I65.22 OCCLUSION AND STENOSIS OF LEFT CAROTID A 07/08/2018 NI CHARITY Rouse Ot J44.9 CHRONIC OBSTRUCTIVE PULMONARY DISEASE, U 07/08/2018 CHARITY DAN Nasim Ot K21.9 GASTRO-ESOPHAGEAL REFLUX DISEASE WITHOUT 07/08/2018 CHARITY DAN Nasim Ot M81.0 AGE- RELATED OSTEOPOROSIS W/O CURRENT PAT 07/08/2018 CHARITY DAN Nasim Ot Z79.899 OTHER INTERMEDIATE (CURRENT) DRUG THERAPY 07/08/2018 CHARITY DAN Nasim Ot Z90.710 ACQUIRED ABSENCE OF BOTH CERVIX AND UTER 07/08/2018 RACHEL BAKER MD Ot M19.012 PRIMARY OSTEOARTHRITIS, LEFT SHOULDER 07/08/2018 RACHEL BAKER MD Ot M75.102 UNSP ROTATR-CUFF TEAR/RUPTR OF LEFT SHOU 07/08/2018 RACHEL BAKER MD Ot M19.012 PRIMARY OSTEOARTHRITIS, LEFT SHOULDER 12/04/2018 MANNY TINEO MD Ot E11.51 TYPE 2 DIABETES W DIABETIC PERIPHERAL AN 12/04/2018 MANNY TINEO MD, Ot F03.90 UNSPECIFIED DEMENTIA WITHOUT BEHAVIORAL 12/04/2018 MANNY TINEO MD Ot F17.210 NICOTINE DEPENDENCE, CIGARETTES, UNCOMPL 12/04/2018 MANNY TINEO MD, Ot F41.9 ANXIETY DISORDER, UNSPECIFIED 12/04/2018 MANNY TINEO MD, Ot I10 ESSENTIAL (PRIMARY) HYPERTENSION 12/04/2018 MANNY TINEO MD, Ot J44.9 CHRONIC OBSTRUCTIVE PULMONARY DISEASE, U 12/04/2018 MANNY TINEO MD, Ot S00.83XA CONTUSION OF OTHER PART OF HEAD, INITIAL 12/04/2018 MANNY TINEO MD, Ot S09.90XA UNSPECIFIED INJURY OF HEAD, INITIAL ENCO 12/04/2018 MANNY TINEO MD, Ot S50.02XA CONTUSION OF LEFT ELBOW, INITIAL ENCOUNT 12/04/2018 MANNY TINEO MD, Ot S80.02XA CONTUSION OF LEFT KNEE, INITIAL ENCOUNTE 12/04/2018 MANNY TINEO MD, Ot W01.198A FALL SAME LEV FROM SLIP/TRIP W STRIKE AG 12/04/2018 MANNY TINEO MD, Ot Y92.[address] [facility] NON-INSTITUT (PRIVATE 12/04/2018 MANNY TINEO MD, Ot Y93.02 ACTIVITY, RUNNING 12/04/2018 MANNY TINEO MD, Ot Z79.82 INTERMEDIATE (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 OF ASPIRIN 12/04/2018 MANNY TINEO MD, Ot Z79.84 GAMES DEALER (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 OF ORAL HYPOGLYC 12/04/2018 MANNY TINEO MD, Ot Z82.49 FAMILY HX OF ISCHEM HEART DIS AND OTH DI 12/04/2018 MANNY TINEO MD, Ot Z87.19 PERSONAL HISTORY OF OTHER DISEASES OF TH 12/04/2018 MANNY TINEO MD, Ot Z87.440 PERSONAL HISTORY OF URINARY (TRACT) INFE 12/04/2018 MANNY TINEO MD, Ot Z88.1 ALLERGY STATUS TO OTHER ANTIBIOTIC AGENT 12/04/2018 MANNY TINEO MD, Ot Z88.7 ALLERGY STATUS TO SERUM AND VACCINE STAT 12/04/2018 MANNY TINEO MD, Ot Z90.710 ACQUIRED ABSENCE OF BOTH CERVIX AND UTER 12/08/2018 GUADALUPE ARANGO DO Ot E11.40 TYPE 2 DIABETES MELLITUS WITH DIABETIC N 12/08/2018 GUADALUPE ARANGO DO Ot E11.65 TYPE 2 DIABETES MELLITUS WITH HYPERGLYCE 12/08/2018 GUADALUPE ARANGO DO Ot E78.5 HYPERLIPIDEMIA, UNSPECIFIED 12/08/2018 GUADALUPE ARANGO DO Ot F03.90 UNSPECIFIED DEMENTIA WITHOUT BEHAVIORAL 12/08/2018 GUADALUPE ARANGO DO Ot F41.9 ANXIETY DISORDER, UNSPECIFIED 12/08/2018 GUADALUPE ARANGO DO Ot G89.4 CHRONIC PAIN SYNDROME 12/08/2018 GUADALUPE ARANGO DO Ot I10 ESSENTIAL (PRIMARY) HYPERTENSION 12/08/2018 GUADALUPE ARANGO DO Ot I25.10 ATHSCL HEART DISEASE OF [place] CORONARY 12/08/2018 GUADALUPE ARANGO DO Ot I73.9 PERIPHERAL VASCULAR DISEASE, UNSPECIFIED 12/08/2018 GUADALUPE ARANGO DO Ot J45.90 9 UNSPECIFIED ASTHMA, UNCOMPLICATED 12/08/2018 GUADALUPE ARANGO DO Ot K52.9 NONINFECTIVE GASTROENTERITIS AND COLITIS 12/08/2018 GUADALUPE ARANGO DO Ot N17.9 ACUTE KIDNEY FAILURE, UNSPECIFIED 12/08/2018 GUADALUPE ARANGO DO Ot R29.6 REPEATED FALLS 12/08/2018 GUADALUPE ARANGO DO Ot R53.1 WEAKNESS 12/08/2018 GUADALUPE ARANGO DO Ot S09.93 XA UNSPECIFIED INJURY OF FACE, INITIAL ENCO 12/08/2018 GUADALUPE ARANGO DO Ot W19.XX XA UNSPECIFIED FALL, INITIAL ENCOUNTER 12/08/2018 GUADALUPE ARANGO DO Ot Z79.82 GAMES DEALER (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 OF ASPIRIN 12/08/2018 GUADALUPE ARANGO DO Ot Z79.84 GAMES DEALER (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 OF ORAL HYPOGLYC 12/08/2018 GUADALUPE ARANGO DO Ot Z79.89 9 OTHER GAMES DEALER (CURRENT) DRUG THERAPY 12/08/2018 GUADALUPE ARANGO DO Ot Z87.19 PERSONAL HISTORY OF OTHER DISEASES OF TH 12/08/2018 GUADALUPE ARANGO DO Ot Z87.89 1 PERSONAL HISTORY OF NICOTINE DEPENDENCE 12/08/2018 GUADALUPE ARANGO DO Ot Z88.1 ALLERGY STATUS TO OTHER ANTIBIOTIC AGENT 12/08/2018 GUADALUPE ARANGO DO Ot Z88.7 ALLERGY STATUS TO SERUM AND VACCINE STAT 12/18/2018 GUADALUPE ARANGO DO Ot E11.40 TYPE 2 DIABETES MELLITUS WITH DIABETIC N 12/18/2018 GUADALUPE ARANGO DO Ot E11.51 TYPE 2 DIABETES W DIABETIC PERIPHERAL AN 12/18/2018 GUADALUPE ARANGO DO Ot E11.65 TYPE 2 DIABETES MELLITUS WITH HYPERGLYCE 12/18/2018 GUADALUPE ARANGO DO Ot E78.2 MIXED HYPERLIPIDEMIA 12/18/2018 GUADALUPE ARANGO DO Ot F03.90 UNSPECIFIED DEMENTIA WITHOUT BEHAVIORAL 12/18/2018 GUADALUPE ARANGO DO Ot F17.21 0 NICOTINE DEPENDENCE, CIGARETTES, UNCOMPL 12/18/2018 GUADALUPE ARANGO DO Ot I12.9 HYPERTENSIVE CHRONIC KIDNEY DISEASE W ST 12/18/2018 GUADALUPE ARANGO DO Ot I25.10 ATHSCL HEART DISEASE OF [place] CORONARY 12/18/2018 ARANGO DO, GUADALUPE Ot N18.9 CHRONIC KIDNEY DISEASE, UNSPECIFIED 12/18/2018 NORMAN ESCOTO GUADALUPE Ot R29.6 REPEATED FALLS 12/18/2018 NORMAN ESCOTO GUADALUPE Ot R42 DIZZINESS AND GIDDINESS 12/18/2018 ARANGOSUKI ESCOTO GUADALUPE Ot R53.1 WEAKNESS 12/18/2018 ARANGOSUKI ESCOTO GUADALUPE Ot S05.11 XD CONTUSION OF EYEBALL AND ORBITAL TISSUES 12/18/2018 NORMAN ESCOTO GUADALUPE Ot S05.12 XD CONTUSION OF EYEBALL AND ORBITAL TISSUES 12/18/2018 NORMAN ESCOTO GUADALUPE Ot S61.41 1D LACERATION WITHOUT FOREIGN BODY OF RIGHT 12/18/2018 NORMAN ESCOTO GUADALUPE Ot W19.XX XD UNSPECIFIED FALL, SUBSEQUENT ENCOUNTER 12/18/2018 NORMAN ESCOTO GUADALUPE Ot Z79.4 GAMES DEALER (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 OF INSULIN 03/23/2019 GARCES DO, LINCOLN L Ot A41.9 SEPSIS, UNSPECIFIED ORGANISM 03/23/2019 GARCES DO, LINCOLN L Ot E11.4 0 TYPE 2 DIABETES MELLITUS WITH DIABETIC N 03/23/2019 GARCES DO, LINCOLN L Ot E11.5 1 TYPE 2 DIABETES W DIABETIC PERIPHERAL AN 03/23/2019 GARCES DO, LINCOLN L Ot F41.9 ANXIETY DISORDER, UNSPECIFIED 03/23/2019 GARCES DO, LINCOLN L Ot I10 ESSENTIAL (PRIMARY) HYPERTENSION 03/23/2019 GARCES DO, LINCOLN L Ot I25.1 0 ATHSCL HEART DISEASE OF [place] CORONARY 03/23/2019 GARCES DO, LINCOLN L Ot J44.9 CHRONIC OBSTRUCTIVE PULMONARY DISEASE, U 03/23/2019 GARCES DO, LINCOLN L Ot R53.8 3 OTHER FATIGUE 03/23/2019 GARCES DO, LINCOLN L Ot Z79.4 INTERMEDIATE (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 OF INSULIN 03/23/2019 GARCES DO, LINCOLN L Ot Z79.8 2 INTERMEDIATE (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 OF ASPIRIN 03/23/2019 GARCES DO, LINCOLN L Ot Z82.4 9 FAMILY HX OF ISCHEM HEART DIS AND OTH DI 03/23/2019 GARCES DO, LINCOLN L Ot Z87.1 9 PERSONAL HISTORY OF OTHER DISEASES OF TH 03/23/2019 GARCES DO, LINCOLN L Ot Z87.4 40 PERSONAL HISTORY OF URINARY (TRACT) INFE 03/23/2019 GARCES DO, LINCOLN L Ot Z88.1 ALLERGY STATUS TO OTHER ANTIBIOTIC AGENT 03/23/2019 GARCES DO, LINCOLN L Ot Z88.7 ALLERGY STATUS TO SERUM AND VACCINE STAT 03/23/2019 GARCES DO, LINCOLN L Ot Z90.7 10 ACQUIRED ABSENCE OF BOTH CERVIX AND UTER 03/28/2019 GARCES DO, LINCOLN L Ot A41.9 SEPSIS, UNSPECIFIED ORGANISM 03/28/2019 GARCES DO, LINCOLN L Ot E11.4 0 TYPE 2 DIABETES MELLITUS WITH DIABETIC N 03/28/2019 GARCES DO, LINCOLN L Ot E11.5 1 TYPE 2 DIABETES W DIABETIC PERIPHERAL AN 03/28/2019 GARCES DO, LINCOLN L Ot F41.9 ANXIETY DISORDER, UNSPECIFIED 03/28/2019 GARCES DO, LINCOLN L Ot I10 ESSENTIAL (PRIMARY) HYPERTENSION 03/28/2019 GARCES DO, LINCOLN L Ot I25.1 0 ATHSCL HEART DISEASE OF [place] CORONARY 03/28/2019 GARCES DO, LINCOLN L Ot J44.9 CHRONIC OBSTRUCTIVE PULMONARY DISEASE, U 03/28/2019 GARCES DO, LINCOLN L Ot R53.8 3 OTHER FATIGUE 03/28/2019 GARCES DO, LINCOLN L Ot Z79.4 INTERMEDIATE (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 OF INSULIN 03/28/2019 GARCES DO, LINCOLN L Ot Z79.8 2 INTERMEDIATE (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 OF ASPIRIN 03/28/2019 GARCES DO, LINCOLN L Ot Z82.4 9 FAMILY HX OF ISCHEM HEART DIS AND OTH DI 03/28/2019 GARCES DO, LINCOLN L Ot Z87.1 9 PERSONAL HISTORY OF OTHER DISEASES OF TH 03/28/2019 GARCES DO, LINCOLN L Ot Z87.4 40 PERSONAL HISTORY OF URINARY (TRACT) INFE 03/28/2019 GARCES DO, LINCOLN L Ot Z88.1 ALLERGY STATUS TO OTHER ANTIBIOTIC AGENT 03/28/2019 GARCES DO, LINCOLN L Ot Z88.7 ALLERGY STATUS TO SERUM AND VACCINE STAT 03/28/2019 GARCES DO, LINCOLN L Ot Z90.7 10 ACQUIRED ABSENCE OF BOTH CERVIX AND UTER 03/31/2019 GARCES DO, LINCOLN L Ot A41.9 SEPSIS, UNSPECIFIED ORGANISM 03/31/2019 GARCES DO, LINCOLN L Ot E11.4 0 TYPE 2 DIABETES MELLITUS WITH DIABETIC N 03/31/2019 GARCES DO, LINCOLN L Ot E11.5 1 TYPE 2 DIABETES W DIABETIC PERIPHERAL AN 03/31/2019 GARCES DO, LINCOLN L Ot F41.9 ANXIETY DISORDER, UNSPECIFIED 03/31/2019 GARCES DO, LINCOLN L Ot I10 ESSENTIAL (PRIMARY) HYPERTENSION 03/31/2019 GARCES DO, LINCOLN L Ot I25.1 0 ATHSCL HEART DISEASE OF [place] CORONARY 03/31/2019 GARCES DO, LINCOLN L Ot J44.9 CHRONIC OBSTRUCTIVE PULMONARY DISEASE, U 03/31/2019 GARCES DO, LINCOLN L Ot R53.8 3 OTHER FATIGUE 03/31/2019 GARCES DO, LINCOLN L Ot Z79.4 INTERMEDIATE (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 OF INSULIN 03/31/2019 GARCES DO, LINCOLN L Ot Z79.8 2 GAMES DEALER (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 OF ASPIRIN 03/31/2019 GARCES DO, LINCOLN L Ot Z82.4 9 FAMILY HX OF ISCHEM HEART DIS AND OTH DI 03/31/2019 GARCES DO, LINCOLN L Ot Z87.1 9 PERSONAL HISTORY OF OTHER DISEASES OF TH 03/31/2019 GARCES DO, LINCOLN L Ot Z87.4 40 PERSONAL HISTORY OF URINARY (TRACT) INFE 03/31/2019 GARCES DO, LINCOLN L Ot Z88.1 ALLERGY STATUS TO OTHER ANTIBIOTIC AGENT 03/31/2019 GARCES DO, LINCOLN L Ot Z88.7 ALLERGY STATUS TO SERUM AND VACCINE STAT 03/31/2019 GARCES DO, LINCOLN L Ot Z90.7 10 ACQUIRED ABSENCE OF BOTH CERVIX AND UTER 04/11/2019 EDD DENIS Ot 786.50 CHEST PAIN NOS 04/11/2019 BJ ECHEVERRIA APRN Ot 789.00 ABDOMINAL PAIN, UNSPECIFIED SITE 04/11/2019 OLIVIA MALLORY, RACHEL Paula Ot M12.871 OTH SPECIFIC ARTHROPATHIES, NEC, RIGHT A 04/11/2019 RACHEL BAKER MD Ot M12.872 OTH SPECIFIC ARTHROPATHIES, NEC, LEFT AN 04/11/2019 Ot M81.0 AGE- RELATED OSTEOPOROSIS W/O CURRENT PAT 04/11/2019 OLIVIA MALLORY, RACHEL Paula Ot E86.0 DEHYDRATION 04/11/2019 OLIVIA MALLORY, RACHEL Paula Ot E87.1 HYPO-OSMOLALITY AND HYPONATREMIA 04/11/2019 OLVIIA MALLORY, RACHEL Paula Ot E87.6 HYPOKALEMIA 04/11/2019 VALE BRUCE DO Ot K21. 9 GASTRO-ESOPHAGEAL REFLUX DISEASE WITHOUT 04/11/2019 BRUCE DOVALE Ot R19. 7 DIARRHEA, UNSPECIFIED 04/11/2019 BRUCE DO, VALE D Ot Z53. 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 04/11/2019 CHARITY DAN Ot D72.829 ELEVATED WHITE BLOOD CELL COUNT, UNSPECI 04/11/2019 CHARITY DAN Ot E11.43 TYPE 2 DIABETES W DIABETIC AUTONOMIC (PO 04/11/2019 CHARITY DAN Ot E78.00 PURE HYPERCHOLESTEROLEMIA, UNSPECIFIED 04/11/2019 CHARITY DAN N Ot F17.210 NICOTINE DEPENDENCE, CIGARETTES, UNCOMPL 04/11/2019 CHARITY DAN Ot F32.9 MAJOR DEPRESSIVE DISORDER, SINGLE EPISOD 04/11/2019 CHARITY DAN Ot F41.9 ANXIETY DISORDER, UNSPECIFIED 04/11/2019 CHARITY DAN Ot I10 ESSENTIAL (PRIMARY) HYPERTENSION 04/11/2019 CHARITY DAN Ot I25.10 ATHSCL HEART DISEASE OF [place] CORONARY 04/11/2019 CHARITY DAN Ot I65.22 OCCLUSION AND STENOSIS OF LEFT CAROTID A 04/11/2019 CHARITY DAN Ot J44.9 CHRONIC OBSTRUCTIVE PULMONARY DISEASE, U 04/11/2019 CHARITY DAN Ot K21.9 GASTRO-ESOPHAGEAL REFLUX DISEASE WITHOUT 04/11/2019 CHARITY DAN Ot M81.0 AGE- RELATED OSTEOPOROSIS W/O CURRENT PAT 04/11/2019 NICHARITY DERAS Nasim Ot Z79.899 OTHER INTERMEDIATE (CURRENT) DRUG THERAPY 04/11/2019 NICHARITY DERAS Nasim Ot Z90.710 ACQUIRED ABSENCE OF BOTH CERVIX AND UTER 04/11/2019 RACHEL BAKER MD Ot M19.012 PRIMARY OSTEOARTHRITIS, LEFT SHOULDER 04/11/2019 RACHEL BAKER MD Ot M75.102 UNSP ROTATR-CUFF TEAR/RUPTR OF LEFT SHOU 04/11/2019 RACHEL BAKER MD Ot M19.012 PRIMARY OSTEOARTHRITIS, LEFT SHOULDER 04/14/2019 JESSICA BERNSTEIN APRN Ot E11.40 TYPE 2 DIABETES MELLITUS WITH DIABETIC N 04/14/2019 JESSICA BERNSTEIN APRN Ot F03.90 UNSPECIFIED DEMENTIA WITHOUT BEHAVIORAL 04/14/2019 JESSICA BERNSTEIN APRN Ot F41 .9 ANXIETY DISORDER, UNSPECIFIED 04/14/2019 JESSICA BERNSTEIN APRN Ot I10 ESSENTIAL (PRIMARY) HYPERTENSION 04/14/2019 JESSICA BERNSTEIN APRN Ot I25.10 ATHSCL HEART DISEASE OF [place] CORONARY 04/14/2019 JESSICA BERNSTEIN APRN Ot J44 .9 CHRONIC OBSTRUCTIVE PULMONARY DISEASE, U 04/14/2019 JESSICA BERNSTEIN APRN Ot M25.571 PAIN IN RIGHT ANKLE AND JOINTS OF RIGHT 04/14/2019 JESSICA BERNSTEIN APRN Ot S82.891A OTH FRACTURE OF RIGHT LOWER LEG, INIT FO 04/14/2019 JESSICA BERNSTEIN APRN Ot W19.XXXA UNSPECIFIED FALL, INITIAL ENCOUNTER 04/14/2019 JESSICA BERNSTEIN APRN Ot Z79 .4 GAMES DEALER (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 OF INSULIN 04/14/2019 JESSICA BERNSTEIN APRN Ot Z79.82 GAMES DEALER (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 OF ASPIRIN 04/14/2019 JESSICA BERNSTEIN APRN Ot Z82.49 FAMILY HX OF ISCHEM HEART DIS AND OTH DI 04/14/2019 JESSICA BERNSTEIN APRN Ot Z87.440 PERSONAL HISTORY OF URINARY (TRACT) INFE 04/14/2019 JESSICA BERNSTEIN APRN Ot Z88 .1 ALLERGY STATUS TO OTHER ANTIBIOTIC AGENT 04/14/2019 JESSICA BERNSTEIN APRN Ot Z88 .7 ALLERGY STATUS TO SERUM AND VACCINE STAT 04/14/2019 JESSICA BERNSTEIN SANDWICH MAKER Ot Z90.710 ACQUIRED ABSENCE OF BOTH CERVIX AND UTER Procedures There is no data. Results Test Result Range Complete urinalysis with reflex to cultu re - 12/20/15 06:05 Urine color determination YELLOW NRG Urine clarity determination CLEAR NR G Urine pH measurement by test strip 6.5 5-9 Specific gravity of urine by test strip 1.010 1.016-1.022 Urine protein assay by test strip, semi-quantitative NEGATIVE NEGATIVE Urine glucose detection by automated test strip 4+ NEGATIVE Erythrocytes detection in urine sediment by light micr oscopy 2+ NEGATIVE Urine ketones detection by automated test strip NE GATIVE NEGATIVE Urine nitrite detection by test strip NEGATIVE NEGATIVE Urine total bilirubin detection by test strip NEGA TIVE NEGATIVE Urine urobilinogen measurement by automated test strip (mass/volume) NORMAL NORMAL Urine leukocyte esterase detection by dipstick 1+ NEGATIVE Automated urine sediment erythrocyte cou nt by microscopy (number/high power field) [HPF] NRG Automated urine sediment leukocyte count by microscopy (number/high power field) [HPF] NRG Bacteria detection in urine sediment by light microsco py TRACE NRG Squamous epithelial cells detection in u rine sediment by light microscopy 5-10 NRG Crystals detection in urine sediment by light microsco py NONE NRG Casts detection in urine sediment by light microscopy NONE NRG Mucus detection in urine sediment by light microscopy NEGATIVE NRG Complete urinalysis with reflex to culture NO NRG Complete blood count (CBC) with automate d white blood cell (WBC) differential - 12/20/15 06:15 Blood leukocytes automated count (number/volume) 17.7 10*3/uL 4.3-11.0 Blood erythrocytes automated count (number/volume) 4.82 10*6/uL 4.35-5.85 Venous blood hemoglobin measurement (mass/volume) 14.5 g/dL 11.5-16.0 Blood hematocrit (volume fraction) 40 % 35-52 Automated erythrocyte mean corpuscular volume 84 [ foz_us] 80-99 Automated erythrocyte mean corpuscular h emoglobin (mass per erythrocyte) 30 pg 25-34 Automated erythrocyte mean corpuscular h emoglobin concentration measurement (mass/volume) 36 g/dL 32-36 Automated erythrocyte distribution width ratio 14. 9 % 10.0- 14.5 Automated blood platelet count (count/volume) 214 10*3/uL 130-400 Automated blood platelet mean volume measurement 9.4 [foz_us] 7.4-10.4 Automated blood neutrophils/100 leukocytes 60 % 42-75 Automated blood lymphocytes/100 leukocytes 15 % 12-44 Blood monocytes/100 leukocytes 7 % 0-12 Automated blood eosinophils/100 leukocytes 18 % 0-10 Automated blood basophils/100 leukocytes 0 % 0-10 Blood neutrophils automated count (number/volume) 10.6 10*3 1.8-7.8 Blood lymphocytes automated count (number/volume) 2.7 10*3 1.0-4.0 Blood monocytes automated count (number/volume) 1. 3 10*3 0.0-1.0 Automated eosinophil count 3.2 10*3/uL 0 .0-0.3 Automated blood basophil count (count/volume) 0.0 10*3/uL 0.0-0.1 Comprehensive metabolic panel - 12/20/15 06:15 Serum or plasma sodium measurement (moles/volume) 138 mmol/L 135-145 Serum or plasma potassium measurement (moles/volume) 3.4 mmol/L 3.6-5.0 Serum or plasma chloride measurement (moles/volume) 106 mmol/L 98-107 Carbon dioxide 18 mmol/L 21-32 Serum or plasma anion gap determination (moles/volume) 14 mmol/L 5-14 Serum or plasma urea nitrogen measurement (mass/volume ) 25 mg/dL 7-18 Serum or plasma creatinine measurement (mass/volume) 1.26 mg/dL 0.60-1.30 Serum or plasma urea nitrogen/creatinine mass ratio 20 NRG Serum or plasma creatinine measurement w ith calculation of estimated glomerular filtration rate 42 NRG Serum or plasma glucose measurement (mass/volume) 200 mg/dL 70-105 Serum or plasma calcium measurement (mass/volume) 9.6 mg/dL 8.5-10.1 Serum or plasma total bilirubin measurement (mass/volu me) 0.7 mg/dL 0.1-1.0 Serum or plasma alkaline phosphatase adrian surement (enzymatic activity/volume) 81 U/L 40-136 Serum or plasma aspartate aminotransfera se measurement (enzymatic activity/volume) 15 U/L 5-34 Serum or plasma alanine aminotransferase measurement (enzymatic activity/volume) 16 U/L 0-55 Serum or plasma protein measurement (mass/volume) 7.4 g/dL 6.4-8.2 Serum or plasma albumin measurement (mass/volume) 4.2 g/dL 3.2-4.5 Magnesium - 12/20/15 06:15 Magnesium 2.4 mg/dL 1.8-2.4 Lipase - 12/20/15 06:15 Lipase 21 U/L 8-78 Blood manual differential performed dete ction - 12/20/15 06:15 Blood monocytes/100 leukocytes 8 % NRG Manual blood segmented neutrophils/100 leukocytes 65 % NRG Blood band neutrophils/100 leukocytes 1 % NRG Manual blood lymphocytes/100 leukocytes 11 % NRG Manual eosinophils/100 leukocytes in nose 15 % NRG Blood erythrocyte morphology finding identification NORMAL NRG Stool leukocytes detection by light micr oscopy - 12/20/15 06:45 FECAL WBC RESULTS NEGATIVE FOR WBC'S NR G FECAL NOTE FECAL LEUKOCYTES MAY BE INTE RMITTENTLY PRESENT OR NRG FECAL NOTE UNEVENLY DISTRIBUTED IN STOO L SPECIMENS, AND WBC NRG FECAL NOTE MORPHOLOGY DEGRADES DURING TRANSPORT NRG FECAL NOTE NOTE: NRG Clostridium difficile detection - 06:45 C DIFF MOLECULAR RESULT Negative for toxigen ic C diff by DNA amplification NRG Stool bacteria identification by culture - 12/20/15 06:45 Stool bacteria identification by culture N2 NRG Ova and parasites - 12/20/15 06:45 DATE OF REF LAB REPORT 01/05/16 12:25 NR G OTP NEGATIVE RESULT PARASITES NOT FOUND NRG Capillary blood glucose measurement by g lucometer (mass/volume) - 12/20/15 15:37 Capillary blood glucose measurement by glucometer (mas s/volume) 239 mg/dL 70-110 Capillary blood glucose measurement by g lucometer (mass/volume) - 12/20/15 19:19 Capillary blood glucose measurement by glucometer (mas s/volume) 250 mg/dL 70-110 Capillary blood glucose measurement by g lucometer (mass/volume) - 12/21/15 06:32 Capillary blood glucose measurement by glucometer (mas s/volume) 248 mg/dL 70-110 Capillary blood glucose measurement by g lucometer (mass/volume) - 12/21/15 09:57 Capillary blood glucose measurement by glucometer (mas s/volume) 190 mg/dL 70-110 Capillary blood glucose measurement by g lucometer (mass/volume) - 12/21/15 15:22 Capillary blood glucose measurement by glucometer (mas s/volume) 163 mg/dL 70-110 Automated blood complete blood count (he mogram) panel - 04/26/17 09:30 Blood leukocytes automated count (number/volume) 10.6 10*3/uL 4.3-11.0 Blood erythrocytes automated count (number/volume) 5.01 10*6/uL 4.35-5.85 Venous blood hemoglobin measurement (mass/volume) 15.8 g/dL 11.5-16.0 Blood hematocrit (volume fraction) 40 % 35-52 Automated erythrocyte mean corpuscular volume 79 [ foz_us] 80-99 Automated erythrocyte mean corpuscular h emoglobin (mass per erythrocyte) 32 pg 25-34 Automated erythrocyte mean corpuscular h emoglobin concentration measurement (mass/volume) 40 g/dL 32-36 Automated erythrocyte distribution width ratio 14. 9 % 10.0- 14.5 Automated blood platelet count (count/volume) 193 10*3/uL 130-400 Automated blood platelet mean volume measurement 8.7 [foz_us] 7.4-10.4 Comprehensive metabolic panel - 04/26/17 09:30 Serum or plasma sodium measurement (moles/volume) 135 mmol/L 135-145 Serum or plasma potassium measurement (moles/volume) 3.9 mmol/L 3.6-5.0 Serum or plasma chloride measurement (moles/volume) 96 mmol/L 98-107 Carbon dioxide 26 mmol/L 21-32 Serum or plasma anion gap determination (moles/volume) 13 mmol/L 5-14 Serum or plasma urea nitrogen measurement (mass/volume ) 12 mg/dL 7-18 Serum or plasma creatinine measurement (mass/volume) 0.82 mg/dL 0.60-1.30 Serum or plasma urea nitrogen/creatinine mass ratio 15 NRG Serum or plasma creatinine measurement w ith calculation of estimated glomerular filtration rate > NRG Serum or plasma glucose measurement (mass/volume) 136 mg/dL 70-105 Serum or plasma calcium measurement (mass/volume) 9.9 mg/dL 8.5-10.1 Serum or plasma total bilirubin measurement (mass/volu me) 0.5 mg/dL 0.1-1.0 Serum or plasma alkaline phosphatase adrian surement (enzymatic activity/volume) 66 U/L 40-136 Serum or plasma aspartate aminotransfera se measurement (enzymatic activity/volume) 11 U/L 5-34 Serum or plasma alanine aminotransferase measurement (enzymatic activity/volume) 10 U/L 0-55 Serum or plasma protein measurement (mass/volume) 7.3 g/dL 6.4-8.2 Serum or plasma albumin measurement (mass/volume) 4.1 g/dL 3.2-4.5 Complete urinalysis with reflex to cultu re - 12/06/18 19:17 Urine color determination YELLOW NRG Urine clarity determination CLEAR NR G Urine pH measurement by test strip 5 5-9 Specific gravity of urine by test strip 1.020 1.016-1.022 Urine protein assay by test strip, semi-quantitative 2+ NEGATIVE Urine glucose detection by automated test strip 1+ NEGATIVE Erythrocytes detection in urine sediment by light micr oscopy NEGATIVE NEGATIVE Urine ketones detection by automated test strip NE GATIVE NEGATIVE Urine nitrite detection by test strip NEGATIVE NEGATIVE Urine total bilirubin detection by test strip NEGA TIVE NEGATIVE Urine urobilinogen measurement by automated test strip (mass/volume) NORMAL NORMAL Urine leukocyte esterase detection by dipstick 1+ NEGATIVE Automated urine sediment erythrocyte cou nt by microscopy (number/high power field) NONE NRG Automated urine sediment leukocyte count by microscopy (number/high power field) [HPF] NRG Bacteria detection in urine sediment by light microsco py MODERATE NRG Squamous epithelial cells detection in u rine sediment by light microscopy >50 NRG Crystals detection in urine sediment by light microsco py NONE NRG Casts detection in urine sediment by light microscopy NONE NRG Mucus detection in urine sediment by light microscopy NEGATIVE NRG Complete urinalysis with reflex to culture YES NRG Bacterial urine culture - 12/06/18 19:17 Bacterial urine culture 3 OR MORE NRG COLONY COUNT 60,000 cfu/ml NRG FTX;REPORTABLE (GRAM POSITIVE) SUGGESTING PROBABLE NRG FREE TEXT ENTRY 2 COLLECTION CONTAMINATION WITH SK IN NRG FREE TEXT ENTRY 3 SCARLET. NO SUSCEPTIBILITY PERFOR MED NRG Complete blood count (CBC) with automate d white blood cell (WBC) differential - 12/06/18 19:33 Blood leukocytes automated count (number/volume) 10.5 10*3/uL 4.3-11.0 Blood erythrocytes automated count (number/volume) 4.62 10*6/uL 4.35-5.85 Venous blood hemoglobin measurement (mass/volume) 14.0 g/dL 11.5-16.0 Blood hematocrit (volume fraction) 39 % 35-52 Automated erythrocyte mean corpuscular volume 84 [ foz_us] 80-99 Automated erythrocyte mean corpuscular h emoglobin (mass per erythrocyte) 30 pg 25-34 Automated erythrocyte mean corpuscular h emoglobin concentration measurement (mass/volume) 36 g/dL 32-36 Automated erythrocyte distribution width ratio 15. 2 % 10.0- 14.5 Automated blood platelet count (count/volume) 179 10*3/uL 130-400 Automated blood platelet mean volume measurement 9.2 [foz_us] 7.4-10.4 Automated blood neutrophils/100 leukocytes 75 % 42-75 Automated blood lymphocytes/100 leukocytes 15 % 12-44 Blood monocytes/100 leukocytes 7 % 0-12 Automated blood eosinophils/100 leukocytes 2 % 0-10 Automated blood basophils/100 leukocytes 0 % 0-10 Blood neutrophils automated count (number/volume) 7.9 10*3 1.8-7.8 Blood lymphocytes automated count (number/volume) 1.6 10*3 1.0-4.0 Blood monocytes automated count (number/volume) 0. 7 10*3 0.0-1.0 Automated eosinophil count 0.2 10*3/uL 0 .0-0.3 Automated blood basophil count (count/volume) 0.0 10*3/uL 0.0-0.1 Comprehensive metabolic panel - 12/06/18 19:33 Serum or plasma sodium measurement (moles/volume) 134 mmol/L 135-145 Serum or plasma potassium measurement (moles/volume) 4.3 mmol/L 3.6-5.0 Serum or plasma chloride measurement (moles/volume) 101 mmol/L 98-107 Carbon dioxide 18 mmol/L 21-32 Serum or plasma anion gap determination (moles/volume) 15 mmol/L 5-14 Serum or plasma urea nitrogen measurement (mass/volume ) 35 mg/dL 7-18 Serum or plasma creatinine measurement (mass/volume) 1.69 mg/dL 0.60-1.30 Serum or plasma urea nitrogen/creatinine mass ratio 21 NRG Serum or plasma creatinine measurement w ith calculation of estimated glomerular filtration rate 30 NRG Serum or plasma glucose measurement (mass/volume) 224 mg/dL 70-105 Serum or plasma calcium measurement (mass/volume) 9.9 mg/dL 8.5-10.1 Serum or plasma total bilirubin measurement (mass/volu me) 0.6 mg/dL 0.1-1.0 Serum or plasma alkaline phosphatase adrian surement (enzymatic activity/volume) 66 U/L 40-136 Serum or plasma aspartate aminotransfera se measurement (enzymatic activity/volume) 17 U/L 5-34 Serum or plasma alanine aminotransferase measurement (enzymatic activity/volume) 20 U/L 0-55 Serum or plasma protein measurement (mass/volume) 6.9 g/dL 6.4-8.2 Serum or plasma albumin measurement (mass/volume) 4.2 g/dL 3.2-4.5 CALCIUM CORRECTED 9.7 mg/dL 8.5-10.1 Comprehensive metabolic panel - 12/07/18 05:10 Serum or plasma sodium measurement (moles/volume) 134 mmol/L 135-145 Serum or plasma potassium measurement (moles/volume) 3.7 mmol/L 3.6-5.0 Serum or plasma chloride measurement (moles/volume) 101 mmol/L 98-107 Carbon dioxide 20 mmol/L 21-32 Serum or plasma anion gap determination (moles/volume) 13 mmol/L 5-14 Serum or plasma urea nitrogen measurement (mass/volume ) 41 mg/dL 7-18 Serum or plasma creatinine measurement (mass/volume) 1.48 mg/dL 0.60-1.30 Serum or plasma urea nitrogen/creatinine mass ratio 28 NRG Serum or plasma creatinine measurement w ith calculation of estimated glomerular filtration rate 35 NRG Serum or plasma glucose measurement (mass/volume) 160 mg/dL 70-105 Serum or plasma calcium measurement (mass/volume) 9.4 mg/dL 8.5-10.1 Serum or plasma total bilirubin measurement (mass/volu me) 0.5 mg/dL 0.1-1.0 Serum or plasma alkaline phosphatase adrian surement (enzymatic activity/volume) 69 U/L 40-136 Serum or plasma aspartate aminotransfera se measurement (enzymatic activity/volume) 16 U/L 5-34 Serum or plasma alanine aminotransferase measurement (enzymatic activity/volume) 18 U/L 0-55 Serum or plasma protein measurement (mass/volume) 6.6 g/dL 6.4-8.2 Serum or plasma albumin measurement (mass/volume) 3.8 g/dL 3.2-4.5 CALCIUM CORRECTED 9.6 mg/dL 8.5-10.1 Complete blood count (CBC) with automate d white blood cell (WBC) differential - 12/07/18 05:20 Blood leukocytes automated count (number/volume) 7.5 10*3/uL 4.3-11.0 Blood erythrocytes automated count (number/volume) 4.46 10*6/uL 4.35-5.85 Venous blood hemoglobin measurement (mass/volume) 13.4 g/dL 11.5-16.0 Blood hematocrit (volume fraction) 38 % 35-52 Automated erythrocyte mean corpuscular volume 85 [ foz_us] 80-99 Automated erythrocyte mean corpuscular h emoglobin (mass per erythrocyte) 30 pg 25-34 Automated erythrocyte mean corpuscular h emoglobin concentration measurement (mass/volume) 35 g/dL 32-36 Automated erythrocyte distribution width ratio 15. 2 % 10.0- 14.5 Automated blood platelet count (count/volume) 162 10*3/uL 130-400 Automated blood platelet mean volume measurement 9.3 [foz_us] 7.4-10.4 Automated blood neutrophils/100 leukocytes 70 % 42-75 Automated blood lymphocytes/100 leukocytes 17 % 12-44 Blood monocytes/100 leukocytes 9 % 0-12 Automated blood eosinophils/100 leukocytes 3 % 0-10 Automated blood basophils/100 leukocytes 0 % 0-10 Blood neutrophils automated count (number/volume) 5.3 10*3 1.8-7.8 Blood lymphocytes automated count (number/volume) 1.3 10*3 1.0-4.0 Blood monocytes automated count (number/volume) 0. 7 10*3 0.0-1.0 Automated eosinophil count 0.2 10*3/uL 0 .0-0.3 Automated blood basophil count (count/volume) 0.0 10*3/uL 0.0-0.1 Capillary blood glucose measurement by g lucometer (mass/volume) - 12/07/18 09:06 Capillary blood glucose measurement by glucometer (mas s/volume) 279 mg/dL 70-110 Complete blood count (CBC) with automate d white blood cell (WBC) differential - 12/07/18 11:35 Blood leukocytes automated count (number/volume) 8.1 10*3/uL 4.3-11.0 Blood erythrocytes automated count (number/volume) 4.61 10*6/uL 4.35-5.85 Venous blood hemoglobin measurement (mass/volume) 13.9 g/dL 11.5-16.0 Blood hematocrit (volume fraction) 39 % 35-52 Automated erythrocyte mean corpuscular volume 85 [ foz_us] 80-99 Automated erythrocyte mean corpuscular h emoglobin (mass per erythrocyte) 30 pg 25-34 Automated erythrocyte mean corpuscular h emoglobin concentration measurement (mass/volume) 36 g/dL 32-36 Automated erythrocyte distribution width ratio 15. 1 % 10.0- 14.5 Automated blood platelet count (count/volume) 162 10*3/uL 130-400 Automated blood platelet mean volume measurement 9.2 [foz_us] 7.4-10.4 Automated blood neutrophils/100 leukocytes 78 % 42-75 Automated blood lymphocytes/100 leukocytes 13 % 12-44 Blood monocytes/100 leukocytes 7 % 0-12 Automated blood eosinophils/100 leukocytes 2 % 0-10 Automated blood basophils/100 leukocytes 0 % 0-10 Blood neutrophils automated count (number/volume) 6.3 10*3 1.8-7.8 Blood lymphocytes automated count (number/volume) 1.0 10*3 1.0-4.0 Blood monocytes automated count (number/volume) 0. 6 10*3 0.0-1.0 Automated eosinophil count 0.2 10*3/uL 0 .0-0.3 Automated blood basophil count (count/volume) 0.0 10*3/uL 0.0-0.1 Comprehensive metabolic panel - 12/07/18 11:35 Serum or plasma sodium measurement (moles/volume) 135 mmol/L 135-145 Serum or plasma potassium measurement (moles/volume) 4.0 mmol/L 3.6-5.0 Serum or plasma chloride measurement (moles/volume) 102 mmol/L 98-107 Carbon dioxide 19 mmol/L 21-32 Serum or plasma anion gap determination (moles/volume) 14 mmol/L 5-14 Serum or plasma urea nitrogen measurement (mass/volume ) 33 mg/dL 7-18 Serum or plasma creatinine measurement (mass/volume) 1.25 mg/dL 0.60-1.30 Serum or plasma urea nitrogen/creatinine mass ratio 26 NRG Serum or plasma creatinine measurement w ith calculation of estimated glomerular filtration rate 42 NRG Serum or plasma glucose measurement (mass/volume) 201 mg/dL 70-105 Serum or plasma calcium measurement (mass/volume) 9.4 mg/dL 8.5-10.1 Serum or plasma total bilirubin measurement (mass/volu me) 0.5 mg/dL 0.1-1.0 Serum or plasma alkaline phosphatase adrian surement (enzymatic activity/volume) 72 U/L 40-136 Serum or plasma aspartate aminotransfera se measurement (enzymatic activity/volume) 16 U/L 5-34 Serum or plasma alanine aminotransferase measurement (enzymatic activity/volume) 18 U/L 0-55 Serum or plasma protein measurement (mass/volume) 6.8 g/dL 6.4-8.2 Serum or plasma albumin measurement (mass/volume) 3.9 g/dL 3.2-4.5 CALCIUM CORRECTED 9.5 mg/dL 8.5-10.1 Capillary blood glucose measurement by g lucometer (mass/volume) - 12/07/18 12:51 Capillary blood glucose measurement by glucometer (mas s/volume) 182 mg/dL 70-110 Capillary blood glucose measurement by g lucometer (mass/volume) - 12/07/18 17:02 Capillary blood glucose measurement by glucometer (mas s/volume) 256 mg/dL 70-110 Capillary blood glucose measurement by g lucometer (mass/volume) - 12/07/18 21:26 Capillary blood glucose measurement by glucometer (mas s/volume) 290 mg/dL 70-110 Complete blood count (CBC) with automate d white blood cell (WBC) differential - 12/08/18 05:04 Blood leukocytes automated count (number/volume) 7.7 10*3/uL 4.3-11.0 Blood erythrocytes automated count (number/volume) 4.51 10*6/uL 4.35-5.85 Venous blood hemoglobin measurement (mass/volume) 13.2 g/dL 11.5-16.0 Blood hematocrit (volume fraction) 38 % 35-52 Automated erythrocyte mean corpuscular volume 85 [ foz_us] 80-99 Automated erythrocyte mean corpuscular h emoglobin (mass per erythrocyte) 29 pg 25-34 Automated erythrocyte mean corpuscular h emoglobin concentration measurement (mass/volume) 35 g/dL 32-36 Automated erythrocyte distribution width ratio 15. 3 % 10.0- 14.5 Automated blood platelet count (count/volume) 178 10*3/uL 130-400 Automated blood platelet mean volume measurement 9.1 [foz_us] 7.4-10.4 Automated blood neutrophils/100 leukocytes 65 % 42-75 Automated blood lymphocytes/100 leukocytes 20 % 12-44 Blood monocytes/100 leukocytes 13 % 0-12 Automated blood eosinophils/100 leukocytes 3 % 0-10 Automated blood basophils/100 leukocytes 0 % 0-10 Blood neutrophils automated count (number/volume) 5.0 10*3 1.8-7.8 Blood lymphocytes automated count (number/volume) 1.5 10*3 1.0-4.0 Blood monocytes automated count (number/volume) 1. 0 10*3 0.0-1.0 Automated eosinophil count 0.2 10*3/uL 0 .0-0.3 Automated blood basophil count (count/volume) 0.0 10*3/uL 0.0-0.1 Comprehensive metabolic panel - 12/08/18 05:04 Serum or plasma sodium measurement (moles/volume) 133 mmol/L 135-145 Serum or plasma potassium measurement (moles/volume) 4.0 mmol/L 3.6-5.0 Serum or plasma chloride measurement (moles/volume) 101 mmol/L 98-107 Carbon dioxide 21 mmol/L 21-32 Serum or plasma anion gap determination (moles/volume) 11 mmol/L 5-14 Serum or plasma urea nitrogen measurement (mass/volume ) 23 mg/dL 7-18 Serum or plasma creatinine measurement (mass/volume) 1.00 mg/dL 0.60-1.30 Serum or plasma urea nitrogen/creatinine mass ratio 23 NRG Serum or plasma creatinine measurement w ith calculation of estimated glomerular filtration rate 55 NRG Serum or plasma glucose measurement (mass/volume) 246 mg/dL 70-105 Serum or plasma calcium measurement (mass/volume) 9.5 mg/dL 8.5-10.1 Serum or plasma total bilirubin measurement (mass/volu me) 0.7 mg/dL 0.1-1.0 Serum or plasma alkaline phosphatase adrian surement (enzymatic activity/volume) 71 U/L 40-136 Serum or plasma aspartate aminotransfera se measurement (enzymatic activity/volume) 16 U/L 5-34 Serum or plasma alanine aminotransferase measurement (enzymatic activity/volume) 14 U/L 0-55 Serum or plasma protein measurement (mass/volume) 6.6 g/dL 6.4-8.2 Serum or plasma albumin measurement (mass/volume) 3.9 g/dL 3.2-4.5 CALCIUM CORRECTED 9.6 mg/dL 8.5-10.1 Capillary blood glucose measurement by g lucometer (mass/volume) - 12/08/18 11:41 Capillary blood glucose measurement by glucometer (mas s/volume) 347 mg/dL 70-110 Capillary blood glucose measurement by g lucometer (mass/volume) - 12/08/18 15:53 Capillary blood glucose measurement by glucometer (mas s/volume) 307 mg/dL 70-110 Capillary blood glucose measurement by g lucometer (mass/volume) - 12/08/18 20:14 Capillary blood glucose measurement by glucometer (mas s/volume) 278 mg/dL 70-110 Complete blood count (CBC) with automate d white blood cell (WBC) differential - 12/09/18 05:10 Blood leukocytes automated count (number/volume) 6.5 10*3/uL 4.3-11.0 Blood erythrocytes automated count (number/volume) 4.48 10*6/uL 4.35-5.85 Venous blood hemoglobin measurement (mass/volume) 13.6 g/dL 11.5-16.0 Blood hematocrit (volume fraction) 39 % 35-52 Automated erythrocyte mean corpuscular volume 87 [ foz_us] 80-99 Automated erythrocyte mean corpuscular h emoglobin (mass per erythrocyte) 30 pg 25-34 Automated erythrocyte mean corpuscular h emoglobin concentration measurement (mass/volume) 35 g/dL 32-36 Automated erythrocyte distribution width ratio 15. 4 % 10.0- 14.5 Automated blood platelet count (count/volume) 160 10*3/uL 130-400 Automated blood platelet mean volume measurement 9.5 [foz_us] 7.4-10.4 Automated blood neutrophils/100 leukocytes 56 % 42-75 Automated blood lymphocytes/100 leukocytes 28 % 12-44 Blood monocytes/100 leukocytes 12 % 0-12 Automated blood eosinophils/100 leukocytes 4 % 0-10 Automated blood basophils/100 leukocytes 0 % 0-10 Blood neutrophils automated count (number/volume) 3.6 10*3 1.8-7.8 Blood lymphocytes automated count (number/volume) 1.8 10*3 1.0-4.0 Blood monocytes automated count (number/volume) 0. 7 10*3 0.0-1.0 Automated eosinophil count 0.3 10*3/uL 0 .0-0.3 Automated blood basophil count (count/volume) 0.0 10*3/uL 0.0-0.1 Comprehensive metabolic panel - 12/09/18 05:10 Serum or plasma sodium measurement (moles/volume) 136 mmol/L 135-145 Serum or plasma potassium measurement (moles/volume) 4.2 mmol/L 3.6-5.0 Serum or plasma chloride measurement (moles/volume) 101 mmol/L 98-107 Carbon dioxide 22 mmol/L 21-32 Serum or plasma anion gap determination (moles/volume) 13 mmol/L 5-14 Serum or plasma urea nitrogen measurement (mass/volume ) 23 mg/dL 7-18 Serum or plasma creatinine measurement (mass/volume) 1.09 mg/dL 0.60-1.30 Serum or plasma urea nitrogen/creatinine mass ratio 21 NRG Serum or plasma creatinine measurement w ith calculation of estimated glomerular filtration rate 50 NRG Serum or plasma glucose measurement (mass/volume) 227 mg/dL 70-105 Serum or plasma calcium measurement (mass/volume) 9.7 mg/dL 8.5-10.1 Serum or plasma total bilirubin measurement (mass/volu me) 0.6 mg/dL 0.1-1.0 Serum or plasma alkaline phosphatase adrian surement (enzymatic activity/volume) 61 U/L 40-136 Serum or plasma aspartate aminotransfera se measurement (enzymatic activity/volume) 11 U/L 5-34 Serum or plasma alanine aminotransferase measurement (enzymatic activity/volume) 17 U/L 0-55 Serum or plasma protein measurement (mass/volume) 6.6 g/dL 6.4-8.2 Serum or plasma albumin measurement (mass/volume) 3.9 g/dL 3.2-4.5 CALCIUM CORRECTED 9.8 mg/dL 8.5-10.1 Capillary blood glucose measurement by g lucometer (mass/volume) - 12/09/18 05:16 Capillary blood glucose measurement by glucometer (mas s/volume) 254 mg/dL 70-110 Capillary blood glucose measurement by g lucometer (mass/volume) - 12/09/18 10:52 Capillary blood glucose measurement by glucometer (mas s/volume) 268 mg/dL 70-110 Capillary blood glucose measurement by g lucometer (mass/volume) - 12/09/18 15:36 Capillary blood glucose measurement by glucometer (mas s/volume) 153 mg/dL 70-110 Capillary blood glucose measurement by g lucometer (mass/volume) - 12/09/18 20:44 Capillary blood glucose measurement by glucometer (mas s/volume) 299 mg/dL 70-110 Capillary blood glucose measurement by g lucometer (mass/volume) - 12/10/18 02:09 Capillary blood glucose measurement by glucometer (mas s/volume) 158 mg/dL 70-110 Capillary blood glucose measurement by g lucometer (mass/volume) - 12/10/18 05:32 Capillary blood glucose measurement by glucometer (mas s/volume) 223 mg/dL 70-110 Capillary blood glucose measurement by g lucometer (mass/volume) - 12/10/18 10:53 Capillary blood glucose measurement by glucometer (mas s/volume) 222 mg/dL 70-110 Capillary blood glucose measurement by g lucometer (mass/volume) - 12/10/18 15:22 Capillary blood glucose measurement by glucometer (mas s/volume) 238 mg/dL 70-110 Capillary blood glucose measurement by g lucometer (mass/volume) - 12/10/18 20:34 Capillary blood glucose measurement by glucometer (mas s/volume) 201 mg/dL 70-110 Capillary blood glucose measurement by g lucometer (mass/volume) - 12/11/18 05:56 Capillary blood glucose measurement by glucometer (mas s/volume) 166 mg/dL 70-110 Capillary blood glucose measurement by g lucometer (mass/volume) - 12/11/18 12:21 Capillary blood glucose measurement by glucometer (mas s/volume) 233 mg/dL 70-110 Capillary blood glucose measurement by g lucometer (mass/volume) - 12/11/18 15:51 Capillary blood glucose measurement by glucometer (mas s/volume) 288 mg/dL 70-110 Capillary blood glucose measurement by g lucometer (mass/volume) - 12/11/18 20:03 Capillary blood glucose measurement by glucometer (mas s/volume) 133 mg/dL 70-110 Complete blood count (CBC) with automate d white blood cell (WBC) differential - 12/12/18 05:40 Blood leukocytes automated count (number/volume) 7.7 10*3/uL 4.3-11.0 Blood erythrocytes automated count (number/volume) 4.22 10*6/uL 4.35-5.85 Venous blood hemoglobin measurement (mass/volume) 12.7 g/dL 11.5-16.0 Blood hematocrit (volume fraction) 36 % 35-52 Automated erythrocyte mean corpuscular volume 86 [ foz_us] 80-99 Automated erythrocyte mean corpuscular h emoglobin (mass per erythrocyte) 30 pg 25-34 Automated erythrocyte mean corpuscular h emoglobin concentration measurement (mass/volume) 35 g/dL 32-36 Automated erythrocyte distribution width ratio 15. 1 % 10.0- 14.5 Automated blood platelet count (count/volume) 163 10*3/uL 130-400 Automated blood platelet mean volume measurement 9.2 [foz_us] 7.4-10.4 Automated blood neutrophils/100 leukocytes 70 % 42-75 Automated blood lymphocytes/100 leukocytes 20 % 12-44 Blood monocytes/100 leukocytes 8 % 0-12 Automated blood eosinophils/100 leukocytes 2 % 0-10 Automated blood basophils/100 leukocytes 0 % 0-10 Blood neutrophils automated count (number/volume) 5.4 10*3 1.8-7.8 Blood lymphocytes automated count (number/volume) 1.5 10*3 1.0-4.0 Blood monocytes automated count (number/volume) 0. 6 10*3 0.0-1.0 Automated eosinophil count 0.2 10*3/uL 0 .0-0.3 Automated blood basophil count (count/volume) 0.0 10*3/uL 0.0-0.1 Comprehensive metabolic panel - 12/12/18 05:40 Serum or plasma sodium measurement (moles/volume) 136 mmol/L 135-145 Serum or plasma potassium measurement (moles/volume) 4.4 mmol/L 3.6-5.0 Serum or plasma chloride measurement (moles/volume) 101 mmol/L 98-107 Carbon dioxide 21 mmol/L 21-32 Serum or plasma anion gap determination (moles/volume) 14 mmol/L 5-14 Serum or plasma urea nitrogen measurement (mass/volume ) 20 mg/dL 7-18 Serum or plasma creatinine measurement (mass/volume) 1.14 mg/dL 0.60-1.30 Serum or plasma urea nitrogen/creatinine mass ratio 18 NRG Serum or plasma creatinine measurement w ith calculation of estimated glomerular filtration rate 47 NRG Serum or plasma glucose measurement (mass/volume) 213 mg/dL 70-105 Serum or plasma calcium measurement (mass/volume) 9.5 mg/dL 8.5-10.1 Serum or plasma total bilirubin measurement (mass/volu me) 0.5 mg/dL 0.1-1.0 Serum or plasma alkaline phosphatase adrian surement (enzymatic activity/volume) 78 U/L 40-136 Serum or plasma aspartate aminotransfera se measurement (enzymatic activity/volume) 11 U/L 5-34 Serum or plasma alanine aminotransferase measurement (enzymatic activity/volume) 14 U/L 0-55 Serum or plasma protein measurement (mass/volume) 6.5 g/dL 6.4-8.2 Serum or plasma albumin measurement (mass/volume) 3.9 g/dL 3.2-4.5 CALCIUM CORRECTED 9.6 mg/dL 8.5-10.1 Capillary blood glucose measurement by g lucometer (mass/volume) - 12/12/18 05:53 Capillary blood glucose measurement by glucometer (mas s/volume) 217 mg/dL 70-110 Capillary blood glucose measurement by g lucometer (mass/volume) - 12/12/18 10:57 Capillary blood glucose measurement by glucometer (mas s/volume) 310 mg/dL 70-110 Capillary blood glucose measurement by g lucometer (mass/volume) - 12/12/18 15:44 Capillary blood glucose measurement by glucometer (mas s/volume) 226 mg/dL 70-110 Capillary blood glucose measurement by g lucometer (mass/volume) - 12/12/18 20:55 Capillary blood glucose measurement by glucometer (mas s/volume) 209 mg/dL 70-110 Capillary blood glucose measurement by g lucometer (mass/volume) - 12/13/18 05:35 Capillary blood glucose measurement by glucometer (mas s/volume) 353 mg/dL 70-110 Capillary blood glucose measurement by g lucometer (mass/volume) - 12/13/18 11:09 Capillary blood glucose measurement by glucometer (mas s/volume) 166 mg/dL 70-110 Capillary blood glucose measurement by g lucometer (mass/volume) - 12/13/18 16:59 Capillary blood glucose measurement by glucometer (mas s/volume) 230 mg/dL 70-110 Capillary blood glucose measurement by g lucometer (mass/volume) - 12/13/18 20:31 Capillary blood glucose measurement by glucometer (mas s/volume) 300 mg/dL 70-110 Capillary blood glucose measurement by g lucometer (mass/volume) - 12/14/18 04:51 Capillary blood glucose measurement by glucometer (mas s/volume) 212 mg/dL 70-110 Capillary blood glucose measurement by g lucometer (mass/volume) - 12/14/18 11:16 Capillary blood glucose measurement by glucometer (mas s/volume) 278 mg/dL 70-110 Capillary blood glucose measurement by g lucometer (mass/volume) - 12/14/18 15:20 Capillary blood glucose measurement by glucometer (mas s/volume) 291 mg/dL 70-110 Capillary blood glucose measurement by g lucometer (mass/volume) - 12/14/18 20:41 Capillary blood glucose measurement by glucometer (mas s/volume) 233 mg/dL 70-110 Complete blood count (CBC) with automate d white blood cell (WBC) differential - 12/15/18 04:35 Blood leukocytes automated count (number/volume) 8.0 10*3/uL 4.3-11.0 Blood erythrocytes automated count (number/volume) 4.00 10*6/uL 4.35-5.85 Venous blood hemoglobin measurement (mass/volume) 11.9 g/dL 11.5-16.0 Blood hematocrit (volume fraction) 35 % 35-52 Automated erythrocyte mean corpuscular volume 87 [ foz_us] 80-99 Automated erythrocyte mean corpuscular h emoglobin (mass per erythrocyte) 30 pg 25-34 Automated erythrocyte mean corpuscular h emoglobin concentration measurement (mass/volume) 34 g/dL 32-36 Automated erythrocyte distribution width ratio 15. 2 % 10.0- 14.5 Automated blood platelet count (count/volume) 166 10*3/uL 130-400 Automated blood platelet mean volume measurement 9.1 [foz_us] 7.4-10.4 Automated blood neutrophils/100 leukocytes 68 % 42-75 Automated blood lymphocytes/100 leukocytes 21 % 12-44 Blood monocytes/100 leukocytes 7 % 0-12 Automated blood eosinophils/100 leukocytes 3 % 0-10 Automated blood basophils/100 leukocytes 0 % 0-10 Blood neutrophils automated count (number/volume) 5.5 10*3 1.8-7.8 Blood lymphocytes automated count (number/volume) 1.7 10*3 1.0-4.0 Blood monocytes automated count (number/volume) 0. 6 10*3 0.0-1.0 Automated eosinophil count 0.2 10*3/uL 0 .0-0.3 Automated blood basophil count (count/volume) 0.0 10*3/uL 0.0-0.1 Comprehensive metabolic panel - 12/15/18 04:35 Serum or plasma sodium measurement (moles/volume) 137 mmol/L 135-145 Serum or plasma potassium measurement (moles/volume) 4.3 mmol/L 3.6-5.0 Serum or plasma chloride measurement (moles/volume) 102 mmol/L 98-107 Carbon dioxide 23 mmol/L 21-32 Serum or plasma anion gap determination (moles/volume) 12 mmol/L 5-14 Serum or plasma urea nitrogen measurement (mass/volume ) 15 mg/dL 7-18 Serum or plasma creatinine measurement (mass/volume) 0.98 mg/dL 0.60-1.30 Serum or plasma urea nitrogen/creatinine mass ratio 15 NRG Serum or plasma creatinine measurement w ith calculation of estimated glomerular filtration rate 56 NRG Serum or plasma glucose measurement (mass/volume) 145 mg/dL 70-105 Serum or plasma calcium measurement (mass/volume) 9.2 mg/dL 8.5-10.1 Serum or plasma total bilirubin measurement (mass/volu me) 0.4 mg/dL 0.1-1.0 Serum or plasma alkaline phosphatase adrian surement (enzymatic activity/volume) 53 U/L 40-136 Serum or plasma aspartate aminotransfera se measurement (enzymatic activity/volume) 10 U/L 5-34 Serum or plasma alanine aminotransferase measurement (enzymatic activity/volume) 16 U/L 0-55 Serum or plasma protein measurement (mass/volume) 6.2 g/dL 6.4-8.2 Serum or plasma albumin measurement (mass/volume) 3.8 g/dL 3.2-4.5 CALCIUM CORRECTED 9.4 mg/dL 8.5-10.1 Capillary blood glucose measurement by g lucometer (mass/volume) - 12/15/18 11:13 Capillary blood glucose measurement by glucometer (mas s/volume) 273 mg/dL 70-110 Capillary blood glucose measurement by g lucometer (mass/volume) - 12/15/18 16:37 Capillary blood glucose measurement by glucometer (mas s/volume) 183 mg/dL 70-110 Capillary blood glucose measurement by g lucometer (mass/volume) - 12/15/18 20:43 Capillary blood glucose measurement by glucometer (mas s/volume) 286 mg/dL 70-110 Capillary blood glucose measurement by g lucometer (mass/volume) - 12/16/18 05:19 Capillary blood glucose measurement by glucometer (mas s/volume) 229 mg/dL 70-110 Capillary blood glucose measurement by g lucometer (mass/volume) - 12/16/18 11:03 Capillary blood glucose measurement by glucometer (mas s/volume) 232 mg/dL 70-110 Capillary blood glucose measurement by g lucometer (mass/volume) - 12/16/18 15:28 Capillary blood glucose measurement by glucometer (mas s/volume) 230 mg/dL 70-110 Capillary blood glucose measurement by g lucometer (mass/volume) - 12/16/18 20:50 Capillary blood glucose measurement by glucometer (mas s/volume) 184 mg/dL 70-110 Capillary blood glucose measurement by g lucometer (mass/volume) - 12/17/18 06:33 Capillary blood glucose measurement by glucometer (mas s/volume) 152 mg/dL 70-110 Capillary blood glucose measurement by g lucometer (mass/volume) - 12/17/18 11:25 Capillary blood glucose measurement by glucometer (mas s/volume) 322 mg/dL 70-110 Capillary blood glucose measurement by g lucometer (mass/volume) - 12/17/18 16:45 Capillary blood glucose measurement by glucometer (mas s/volume) 128 mg/dL 70-110 Capillary blood glucose measurement by g lucometer (mass/volume) - 12/17/18 21:23 Capillary blood glucose measurement by glucometer (mas s/volume) 321 mg/dL 70-110 Capillary blood glucose measurement by g lucometer (mass/volume) - 12/18/18 05:25 Capillary blood glucose measurement by glucometer (mas s/volume) 176 mg/dL 70-110 Capillary blood glucose measurement by g lucometer (mass/volume) - 12/18/18 11:06 Capillary blood glucose measurement by glucometer (mas s/volume) 312 mg/dL 70-110 Complete blood count (CBC) with automate d white blood cell (WBC) differential - 03/23/19 14:45 Blood leukocytes automated count (number/volume) 16.8 10*3/uL 4.3-11.0 Blood erythrocytes automated count (number/volume) 4.90 10*6/uL 4.35-5.85 Venous blood hemoglobin measurement (mass/volume) 14.3 g/dL 11.5-16.0 Blood hematocrit (volume fraction) 42 % 35-52 Automated erythrocyte mean corpuscular volume 85 [ foz_us] 80-99 Automated erythrocyte mean corpuscular h emoglobin (mass per erythrocyte) 29 pg 25-34 Automated erythrocyte mean corpuscular h emoglobin concentration measurement (mass/volume) 34 g/dL 32-36 Automated erythrocyte distribution width ratio 15. 0 % 10.0- 14.5 Automated blood platelet count (count/volume) 276 10*3/uL 130-400 Automated blood platelet mean volume measurement 9.0 [foz_us] 7.4-10.4 Automated blood neutrophils/100 leukocytes 79 % 42-75 Automated blood lymphocytes/100 leukocytes 14 % 12-44 Blood monocytes/100 leukocytes 6 % 0-12 Automated blood eosinophils/100 leukocytes 1 % 0-10 Automated blood basophils/100 leukocytes 0 % 0-10 Blood neutrophils automated count (number/volume) 13.2 10*3 1.8-7.8 Blood lymphocytes automated count (number/volume) 2.4 10*3 1.0-4.0 Blood monocytes automated count (number/volume) 1. 1 10*3 0.0-1.0 Automated eosinophil count 0.1 10*3/uL 0 .0-0.3 Automated blood basophil count (count/volume) 0.0 10*3/uL 0.0-0.1 PT panel in platelet poor plasma by coag ulation assay - 03/23/19 14:45 Prothrombin time (PT) in platelet poor plasma by coagu lation assay 14.6 s 12.2-14.7 INR in platelet poor plasma or blood by coagulation as say 1.1 0.8-1.4 Activated partial thromboplastin time (a PTT) in platelet poor plasma bycoagulation assay - 03/23/19 14:45 Activated partial thromboplastin time (a PTT) in platelet poor plasma bycoagulation assay 30 s 24-35 Manual absolute plasma cell count - 06/10 14:45 Blood monocytes/100 leukocytes 6 % NRG Manual blood segmented neutrophils/100 leukocytes 80 % NRG Blood band neutrophils/100 leukocytes 0 % NRG Manual blood lymphocytes/100 leukocytes 11 % NRG Manual eosinophils/100 leukocytes in nose 2 % NRG Manual blood basophils/100 leukocytes 1 % NRG Blood anisocytosis detection by light microscopy [facility] Influenza virus A and B antigen detectio n - 03/23/19 14:55 FLU RESULT NEGATIVE FOR INFLUENZA A AND B ANTIGENS BY [facility] Comprehensive metabolic panel - 03/23/19 14:55 Serum or plasma sodium measurement (moles/volume) 134 mmol/L 135-145 Serum or plasma potassium measurement (moles/volume) 5.3 mmol/L 3.6-5.0 Serum or plasma chloride measurement (moles/volume) 100 mmol/L 98-107 Carbon dioxide 21 mmol/L 21-32 Serum or plasma anion gap determination (moles/volume) 13 mmol/L 5-14 Serum or plasma urea nitrogen measurement (mass/volume ) 25 mg/dL 7-18 Serum or plasma creatinine measurement (mass/volume) 1.72 mg/dL 0.60-1.30 Serum or plasma urea nitrogen/creatinine mass ratio 15 NRG Serum or plasma creatinine measurement w ith calculation of estimated glomerular filtration rate 29 NRG Serum or plasma glucose measurement (mass/volume) 324 mg/dL 70-105 Serum or plasma calcium measurement (mass/volume) 9.6 mg/dL 8.5-10.1 Serum or plasma total bilirubin measurement (mass/volu me) 0.6 mg/dL 0.1-1.0 Serum or plasma alkaline phosphatase adrian surement (enzymatic activity/volume) 49 U/L 40-136 Serum or plasma aspartate aminotransfera se measurement (enzymatic activity/volume) 23 U/L 5-34 Serum or plasma alanine aminotransferase measurement (enzymatic activity/volume) 23 U/L 0-55 Serum or plasma protein measurement (mass/volume) 7.2 g/dL 6.4-8.2 Serum or plasma albumin measurement (mass/volume) 4.3 g/dL 3.2-4.5 CALCIUM CORRECTED 9.4 mg/dL 8.5-10.1 Ammonia - 03/23/19 14:55 Ammonia 20 umol/L 11-32 Serum or plasma ethanol measurement (mas s/volume) - 03/23/19 14:55 Serum or plasma ethanol measurement (mass/volume) < mg/dL <10 Blood lactic acid measurement (moles/vol ume) - 03/23/19 14:55 Blood lactic acid measurement (moles/volume) 2.91 mmol/L 0.50-2.00 Complete urinalysis with reflex to cultu re - 03/23/19 16:00 Urine color determination YELLOW NRG Urine clarity determination SL CLOUDY N RG Urine pH measurement by test strip 6.0 5-9 Specific gravity of urine by test strip 1.025 1.016-1.022 Urine protein assay by test strip, semi-quantitative 2+ NEGATIVE Urine glucose detection by automated test strip 2+ NEGATIVE Erythrocytes detection in urine sediment by light micr oscopy NEGATIVE NEGATIVE Urine ketones detection by automated test strip NE GATIVE NEGATIVE Urine nitrite detection by test strip NEGATIVE NEGATIVE Urine total bilirubin detection by test strip NEGA TIVE NEGATIVE Urine urobilinogen measurement by automated test strip (mass/volume) 0.2 mg/dL < = 1.0 Urine leukocyte esterase detection by dipstick NEG ATIVE NEGATIVE Automated urine sediment erythrocyte cou nt by microscopy (number/high power field) NONE NRG Automated urine sediment leukocyte count by microscopy (number/high power field) NONE NRG Bacteria detection in urine sediment by light microsco py NEGATIVE NRG Squamous epithelial cells detection in u rine sediment by light microscopy 0-2 NRG Crystals detection in urine sediment by light microsco py NONE NRG Casts detection in urine sediment by light microscopy PRESENT NRG Mucus detection in urine sediment by light microscopy NEGATIVE NRG Complete urinalysis with reflex to culture NO NRG Hyaline casts detection in urine sediment by light estella roscopy 5-10 NRG Urine drug screening test - 03/23/19 16: 00 Urine phencyclidine detection by screening method NEGATIVE NEGATIVE Urine benzodiazepines detection by screening method POSITIVE NEGATIVE Urine cocaine detection NEGATIVE NEGATI VE Urine amphetamines detection by screening method N EGATIVE NEGATIVE Urine methamphetamine detection by screening method NEGATIVE NEGATIVE Urine cannabinoids detection by screening method N EGATIVE NEGATIVE Urine opiates detection by screening method NEGATI VE NEGATIVE Urine barbiturates detection NEGATIVE N EGATIVE Screening urine tricyclic antidepressants detection POSITIVE NEGATIVE Urine methadone detection by screening method NEGA TIVE NEGATIVE Urine oxycodone detection NEGATIVE NEGA TIVE Urine propoxyphene detection NEGATIVE N EGATIVE Bacterial blood culture - 03/23/19 16:03 QUANTITY OF GROWTH . NRG Bacterial blood culture SEE COMMEN NRG Serum or plasma lactate measurement (mol es/volume) - 03/23/19 16:57 Serum or plasma lactate measurement (moles/volume) 2.73 mmol/L 0.50-2.00 Lactic Acid - 03/23/19 19:35 Lactic Acid 24.9 mg/dL 4.5-19.8 Comprehensive Metabolic Panel - 03/24/19 05:25 Albumin 3.7 g/dL 3.6-5.1 ALP 43 U/L 35-130 ALT 18 U/L 6-45 Anion Gap 13 6-14 AST 16 U/L 2-40 BUN 35 mg/dL 5-25 Calcium 8.6 mg/dL 8.3-10.4 Chloride 107 mmol/L 95-114 CO2 20 mEq/L 22-33 Creat 1.39 mg/dL 0.50-1.50 eGFR 37 mL/min/1.73m2 >59 Globulin 2.1 g/dL 2.3-3.5 Glucose 98 mg/dL 70-110 Osmo 289 280-295 Potassium 4.3 mmol/L 3.5-5.3 Sodium 136 mmol/L 134-148 TBil 0.4 mg/dL 0.2-1.2 TP 5.8 g/dL 6.0-8.3 Comprehensive Metabolic Panel - 03/25/19 05:25 Albumin 4.2 g/dL 3.6-5.1 ALP 52 U/L 35-130 ALT 17 U/L 6-45 Anion Gap 14 6-14 AST 15 U/L 2-40 BUN 29 mg/dL 5-25 Calcium 9.8 mg/dL 8.3-10.4 Chloride 106 mmol/L 95-114 CO2 21 mEq/L 22-33 Creat 1.25 mg/dL 0.50-1.50 eGFR 42 mL/min/1.73m2 >59 Globulin 2.4 g/dL 2.3-3.5 Glucose 140 mg/dL 70-110 Osmo 291 280-295 Potassium 4.2 mmol/L 3.5-5.3 Sodium 137 mmol/L 134-148 TBil 0.3 mg/dL 0.2-1.2 TP 6.6 g/dL 6.0-8.3 Comprehensive Metabolic Panel - 03/26/19 04:30 Albumin 4.2 g/dL 3.6-5.1 ALP 59 U/L 35-130 ALT 17 U/L 6-45 Anion Gap 15 6-14 AST 14 U/L 2-40 BUN 25 mg/dL 5-25 Calcium 10.0 mg/dL 8.3-10.4 Chloride 103 mmol/L 95-114 CO2 23 mEq/L 22-33 Creat 1.32 mg/dL 0.50-1.50 eGFR 40 mL/min/1.73m2 >59 Globulin 2.4 g/dL 2.3-3.5 Glucose 162 mg/dL 70-110 Osmo 290 280-295 Potassium 4.2 mmol/L 3.5-5.3 Sodium 137 mmol/L 134-148 TBil 0.4 mg/dL 0.2-1.2 TP 6.6 g/dL 6.0-8.3 Encounters ACCT No. Visit Date/Time Discharge Status Pt. Type Provider Facility Loc./Unit Complaint [id number] 03/23/2019 18:00:00 03/26/2019 09:00: 00 DIS Inpatient Guadalupe Arango C enter ICU [id number] 03/23/2019 19:22:08 Document Registration [id number] 04/11/2019 20:49:00 21:57:00 DIS Outpatient JESSICA BERNSTEIN APRN [facility] ER FALL/RT FOOT INJURY [id number] 03/23/2019 14:40:00 17:40:00 DIS Emergency LINCOLN GARCES DO [facility] ER LETHARGIC [id number] 12/08/2018 10:30:00 13:20:00 DIS Inpatient GUADALUPE ARANGO DO [facility] IRF RECURRENT FALLS [id number] 12/06/2018 22:30:00 08:27:00 DIS Inpatient GUADALUPE ARANGO DO, [facility] 4TH MULTIPLE FALLS, WEAKNES S, HYPERGLYCEMIA, [id number] 12/04/2018 09:34:00 11:26:00 DIS Emergency MANNY TINEO MD [facility] ER FALL [id number] 05/07/2018 12:09:00 019 23:59:59 CLS Outpatient RACHEL BAKER MD [facility] RAD PAIN IN LEFT SHOULDER [id number] 05/02/2018 12:51:00 019 23:59:59 CLS Outpatient RACHEL BAKER MD [facility] RAD M25.512 [id number] 05/09/2017 00:38:00 018 23:59:59 CLS Preadmit CHARITY DAN [facility] ONC [id number] 03/07/2017 14:53:00 018 00:01:00 DIS Outpatient CHARITY DAN [facility] ONC [id number] 04/26/2017 07:00:00 018 23:59:59 CLS Outpatient ALLSION RANDALL DO [facility] HH CAD,DM TYPE 2,H [place] [id number] 01/08/2017 12:46:00 017 23:59:59 CLS Preadmit ANTONINA LEAL SANDWICH MAKER [facility] WOUNDCARE [id number] 01/04/2017 13:09:00 017 15:46:00 DIS Emergency ODIN AGUIRRE [facility] ER OPEN WOUNDS B FEET [id number] 12/04/2016 11:26:00 017 23:59:59 CLS Outpatient BJ ECHEVERRIA APRN [facility] RAD PAIN IN RIGHT LEG [id number] 01/25/2016 09:00:00 016 09:00:00 CAN Preadmit VALE BRUCE DO [facility] SDC DIARRHEA;GERD [id number] 01/24/2016 10:38:00 016 23:59:59 CLS Outpatient BRUCE VALE Nisa [facility] DIARRHEA;GERD [id number] 01/18/2016 06:34:00 016 15:00:00 DIS Outpatient BRUCE VALE D [facility] PREOP DIARRHEA;GERD [id number] 12/20/2015 11:30:00 18:12:00 DIS Inpatient SHERRILL TIWARI MD [facility] 4TH RLQ PAIN DIARRHEA ACUTE RENAL INSUFFICIENCY [id number] 11/30/2015 12:24:00 23:59:59 CLS Outpatient RACHEL BAKER MD [facility] DEYHDRATION,HYPOKALEMI A [id number] 04/25/2015 12:34:00 23:59:59 CLS Outpatient RACHEL BAKER MD [facility] RAD DISORDER OF JOINT OF A NKLE AND FOOT [id number] 08/12/2014 09:29:00 015 23:59:59 CLS Outpatient BJ ECHEVERRIA APRN [facility] RAD RUQ PAIN [id number] 08/02/2014 09:27:00 015 23:59:59 CLS Outpatient EDD DENIS [facility] CARD CHEST PAIN [id number] 08/02/2013 22:17:00 014 01:13:00 DIS Emergency MANNY TINEO MD [facility] ER ABD PAIN;DIARRH EA [id number] 10/09/2012 08:41:00 013 23:59:59 CLS Outpatient RACHEL BAKER MD [facility] RAD RUQ PAIN [id number] 11/01/2017 02:39:00 Document Registration [id number] 05/12/2015 11:33:00 Document Registration [id number] 08/02/2014 09:23:00 Document Registration [id number] 08/02/2014 09:23:00 Document Registration [id number] 08/02/2014 09:23:00 Document Registration [id number] 12/18/2011 06:14:00 Document Registration [id number] 10/29/2011 08:53:00 Document Registration [id number] 10/22/2011 06:54:00 Document Registration [id number] 11/13/2010 08:06:00 Document Registration [id number] 08/10/2010 07:40:00 Document Registration [id number] 05/31/2010 08:11:00 Document Registration [id number] 04/17/2010 10:03:00 Document Registration [id number] 10/26/2009 07:14:00 Document Registration [id number] 05/03/2008 09:20:00 Document Registration [id number] 03/23/2019 18:00:00 Document Registration
== END 2019-03-23 17:40 ==
LOC: EDUNIT# 14:38 → ER 14:40
DX: A41.9 Sepsis, unspecified organism (principal); J44.9 Chronic obstructive pulmonary disease, unspecified; I25.10 Atherosclerotic heart disease of native coronary artery without angina pectoris; I10 Essential (primary) hypertension; E11.51 Type 2 diabetes mellitus with diabetic peripheral angiopathy without gangrene; E11.40 Type 2 diabetes mellitus with diabetic neuropathy, unspecified; F41.9 Anxiety disorder, unspecified; Z82.49 Family history of ischemic heart disease and other diseases of the circulatory system; Z87.440 Personal history of urinary (tract) infections; Z87.19 Personal history of other diseases of the digestive system; Z88.7 Allergy status to serum and vaccine; Z88.1 Allergy status to other antibiotic agents; Z79.82 Long term (current) use of aspirin; Z79.4 Long term (current) use of insulin; Z90.710 Acquired absence of both cervix and uterus
CPT/HCPCS: 36415; 70450; 71045; 80053; 80306; 80320; 81000; 82140; 83605; 85007; 85027; 85610; 85730; 87040; 87804; 96374

== ENCOUNTER 2019-04-11 20:46 | Emergency (ER) | payer MEDICARE, MEDICAID ==
[~2019-04-11] VITALS: Ht 165.1 cm; Wt 72.7 kg
--- NOTE | 2019-04-11 21:09 | ED Lower Extremity ---
General Chief Complaint: Lower Extremity Stated Complaint: FALL/RT FOOT INJURY Source: patient Exam Limitations: no limitations History of Present Illness Date Seen by Provider: Apr 11, 2019 Time Seen by Provider: 21:07 Initial Comments To ER from [facility] with the report of fall sometime between midnight and 3 AM this morning, subsequent right ankle pain. Had an outpatient x-ray at the facility which apparently showed a distal fibular fracture Onset: this morning Severity: moderate Pain/Injury Location: right ankle Method of Injury: fell Modifying Factors: Worse With Movement Allergies and Home Medications Allergies Coded Allergies: Tetanus Vaccines and Toxoid (Unverified Allergy, Severe, 12/17/11) SWOLLEN HOT RED ARM ampicillin (Unverified Allergy, Unknown, 12/20/15) Home Medications Alendronate Sodium 70 Mg Tablet, 70 MG PO Gaines, (Reported) Alprazolam 0.5 Mg Tablet, 0.5 MG PO DAILY Prescribed by: GUADALUPE AUSTIN on 12/18/18857 Alprazolam 0.5 Mg Tablet, 1 MG PO HS TAKES 2 (0.5MG) TABLETS Prescribed by: GUADALUPE AUSTIN on 12/18/18857 Amlodipine Besylate 5 Mg Tablet, 5 MG PO 1800, (Reported) Aspirin 81 Mg Tablet.dr, 81 MG PO DAILY, (Reported) Bupropion HCl 300 Mg Tab.er.24h, 300 MG PO DAILY, (Reported) Calcium Carb & Citrate/Vit D3 1 Each Tablet.er, 1 TAB PO DAILY, (Reported) Gabapentin 600 Mg Tablet, 1,200 MG PO TID, (Reported) TAKES 2 (600MG) TABLETS Gemfibrozil 600 Mg Tablet, 600 MG PO BID, (Reported) Glimepiride 4 Mg Tablet, 4 MG PO BID, (Reported) Ibuprofen 200 Mg Tablet, 800 MG PO TID PRN for PAIN-MILD, (Reported) TAKES 4 (200MG) TABLETS Insulin Aspart 100 Unit/1 Ml Susp, 0 UNIT SC ACHS Prescribed by: GUADALUPE AUSTIN on 12/18/18857 Insulin Determir 1,000 Units/10 Ml Soln, 15 UNIT SQ BID Prescribed by: GUADALUPE AUSTIN on 12/18/18857 Linagliptin 5 Mg Tablet, 5 MG PO DAILY, (Reported) Meclizine HCl 25 Mg Tablet, 12.5 MG PO Q12HR PRN for Dizziness Prescribed by: GUADALUPE AUSTIN on 12/18/18 0858 Meloxicam 15 Mg Tablet, 15 MG PO DAILY, (Reported) Metformin HCl 500 Mg Tab.er.24h, 500 MG PO BID, (Reported) Pantoprazole Sodium 40 Mg Tablet.dr, 40 MG PO DAILY, (Reported) Quetiapine Fumarate 25 Mg Tablet, 25 MG PO BID Prescribed by: GUADALUPE AUSTIN on 12/18/18 08 Patient Home Medication List Home Medication List Reviewed: Yes Review of Systems Constitutional: see HPI EENTM: see HPI Respiratory: no symptoms reported Cardiovascular: no symptoms reported Genitourinary: no symptoms reported Musculoskeletal: see HPI Skin: no symptoms reported Psychiatric/Neurological: No Symptoms Reported Past Jpxeeyf-Vjolve-Oynlto Hx Patient Social History Type Used: Cigarettes Recent Hopitalizations: Yes Immunizations Up To Date Tetanus Booster (TDap): Unknown Date of Pneumonia Vaccine: August 21, 2016 Date of Influenza Vaccine: Mar 19, 2011 Seasonal Allergies Seasonal Allergies: Yes Past Medical History Surgeries: Yes (R CAROTID 2010) Hysterectomy, Vascular Surgery Respiratory: No COPD Currently Using CPAP: No Currently Using BIPAP: No Cardiac: Yes Coronary Artery Disease, Hypertension, Peripheral Vascular Neurological: Yes Dementia, Neuropathy 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 Disorders: No Genitourinary: Yes UTI-Chronic Gastrointestinal: Yes Gastrointestinal Bleed, Diverticulosis, Chronic Diarrhea Musculoskeletal: Yes (ARTHRITIS) Degenerate Disk Disease Endocrine: Yes Diabetes, Non-Insulin dep Cataract Loss of Vision: Denies Cancer: No Psychosocial: Yes Anxiety Integumentary: No Blood Disorders: No Family Medical History Arthritis G8 SISTER G8 SISTER Cataracts 19 MOTHER Diabetes mellitus G8 SISTER FH: COPD (chronic obstructive pulmonary disease) 19 MOTHER FH: CVA (cerebrovascular accident) 19 FATHER FH: heart attack 19 FATHER Glaucoma 19 MOTHER Hypercholesterolemia 19 FATHER Hypertension 19 FATHER No Pertinent Family Hx Physical Exam Vital Signs Vital Signs - First Documented 04/11/19 20:54 Temp 36.8 Pulse 98 Resp 18 B/P (MAP) 109/71 (84) Pulse Ox 96 O2 Delivery Room Air Capillary Refill : Height, Weight, BMI Height: 5'5.00" Weight: 164lbs. 6.4oz. 74.183149ym; 26.00 BMI Method:Stated General Appearance: WD/WN Neck: non-tender, full range of motion Respiratory: no respiratory distress, no accessory muscle use Hips: bilateral hip non-tender, bilateral hip normal inspection, bilateral hip normal range of motion Legs: bilateral leg non-tender, bilateral leg normal inspection, bilateral leg normal range of motion Knees: bilateral knee non-tender, bilateral knee normal inspection, bilateral knee normal range of motion Ankles: left ankle non-tender, left ankle normal inspection, left ankle normal range of motion; right ankle other (until swelling and edema about the right ankle nonpalpable dorsalis pedis pulses both feet but each foot is warm with brisk capillary refill.) Feet: bilateral foot non-tender, bilateral foot normal inspection, bilateral foot normal range of motion Neurologic/Psychiatric: alert, normal mood/affect, oriented x 3 Skin: normal color, warm/dry She has no pain over the foot, no pain proximal to the ankle itself. Progress/Results/Core Measures Results/Orders My Orders Orders - JESSICA BERNSTEIN APRN Ankle, Right, 3 Views (04/11/19 20:57) Vital Signs/I&O 04/11/19 20:54 Temp 36.8 Pulse 98 Resp 18 B/P (MAP) 109/71 (84) Pulse Ox 96 O2 Delivery Room Air Departure Communication (Admissions) Placed in a stirrup splint using 3 inch Ortho-Glass Impression Primary Impression: Ankle fracture Disposition: ADMITTED INPATIENT Condition: Improved Departure-Patient Inst. Decision time for Depature: 21:39 Referrals: RACHEL BAKER MD (PCP/Family) Primary Care Physician Patient Instructions: Ankle Fracture Add. Discharge Instructions: 1. Keep this elevated as much as possible. This will help reduce the swelling and subsequently the pain. Since this fibula is not the weightbearing on the leg,you ARE allowed to bear weight and walk on this as tolerated. Keep the splint on clean and dry at all times until you follow up with orthopedics. Call an orthopedic surgeon of your choosing on Saturday to make an appointment to be seen. All discharge instructions reviewed with patient and/or family. Voiced understanding. Scripts Hydrocodone Bit/Acetaminophen (Hydrocodone/Acetaminophen 5/325mg Tablet) 1 Tab Tab 1 EACH PO TID PRN for PAIN-MODERATE MDD 10 for 3 Days, #10 TAB Prov: JESSICA BERNSTEIN APRN 04/11/19 JESSICA BERNSTEIN APRN Apr 11, 2019 21:09
--- NOTE | 2019-04-11 21:28 | Diagnostic Imaging Report ---
INDICATION: Fall, twisting injury with pain. EXAMINATION: Three views of the right ankle were obtained. FINDINGS: There is an obliquely oriented fracture of the distal fibula with the distal fragment mildly displaced, laterally. There is overlying soft tissue swelling. There appears to be some superficial flakes of avulsed cortical bone off the tip of the medial malleolus. This injury, however, is of uncertain acuity. The plafond and talar dome are intact. IMPRESSION: Mildly displaced distal fibular fracture, acuity indeterminate. Superficial avulsions off the caudal tip of the medial malleolus. Lateral swelling. No widening of the mortise. Dictated by: Dictated on workstation # [id number]
[2019-04-11] MEDS ORDERED: ACHD5005 PO (21:40)
[2019-04-11] MEDS ORDERED: RX-HYDROCODONE/APAP 5/325 MG #4 TAB PK PO PRN (21:45)
[2019-04-11 21:57] VITALS: BP 109/71
== END 2019-04-11 21:57 | disposition other institution (70) ==
LOC: EDUNIT# 20:46 → ER 20:49
DX: S82.891A Other fracture of right lower leg, initial encounter for closed fracture (principal); J44.9 Chronic obstructive pulmonary disease, unspecified; I10 Essential (primary) hypertension; I25.10 Atherosclerotic heart disease of native coronary artery without angina pectoris; F03.90 Unspecified dementia, unspecified severity, without behavioral disturbance, psychotic disturbance, mood disturbance, and anxiety; E11.40 Type 2 diabetes mellitus with diabetic neuropathy, unspecified; F41.9 Anxiety disorder, unspecified; Z87.440 Personal history of urinary (tract) infections; Z88.7 Allergy status to serum and vaccine; Z88.1 Allergy status to other antibiotic agents; Z79.82 Long term (current) use of aspirin; Z79.4 Long term (current) use of insulin; Z90.710 Acquired absence of both cervix and uterus; Z82.49 Family history of ischemic heart disease and other diseases of the circulatory system; W19.XXXA Unspecified fall, initial encounter
CPT/HCPCS: 29515; 73610

== ENCOUNTER → 2019-05-23 | Outpatient (CLI) | payer MEDICARE, MEDICAID ==
[~2019-05-23] MED LIST changes: +ACHD5005 PO; +BISO-3 PO; -BISO1TAB6 PO; +EZET10TA17 PO; +GLIM4TAB3 PO; +METF500T19 PO; -METF500T8 PO
[2019-05-23 14:24] LABS: BILIRUBIN,URINE NEGATIVE (NEGATIVE); CLARITY,URINE CLEAR; COLOR,URINE YELLOW; GLUCOSE, URINE (UA) NEGATIVE (NEGATIVE); KETONES,URINE NEGATIVE (NEGATIVE); LEUKOCYTE ESTERASE ,URINE NEGATIVE (NEGATIVE); NITRITE,URINE NEGATIVE (NEGATIVE); PROTEIN,URINE NEGATIVE (NEGATIVE)
[2019-05-23 14:34] LABS: BACTERIA,URINE TRACE /HPF; SQUAMOUS EPITHELIAL CELL,UR 0-2 /HPF
== END ==
LOC: MERGE 14:20 → LABNPT 14:20
DX: Z01.89 Encounter for other specified special examinations (principal)
CPT/HCPCS: 81000

== ENCOUNTER 2019-11-10 01:41 | Emergency (ER) | payer MEDICARE, MEDICAID ==
[~2019-11-10] VITALS: Ht 162.5 cm; Wt 76.4 kg
[~2019-11-10 01:41] MED LIST changes: -BUPR300T51 PO; +BUPR300T98 PO; -GLIM4TAB3 PO; +GLIM4TAB5 PO; -MECL-106 PO; +MECL-149 PO; +METF-865 PO; -METF500T19 PO; -ONDA8TAB12 PO; +ONDA8TAB15 PO
--- OUTSIDE RECORDS SUMMARY | 2019-11-10 01:50 | XMS REPORT | Continuity of Care Document ---
Author Organization Unknown Address Unknown Phone Unavailable Allergies Active Description Code Type Severity Reaction Onset Reported/Identified Relationship to Patient Clinical Status Yes AMOXICILLIN MODERATE MODERATE Yes HYDROCODONE-ACETAMINOPHEN MODERATE MODERATE Yes LISINOPRIL UNKNOWN UNKNOWN Yes TETANUS IMMUNE GLOBULIN (PF) UNKNOWN UNKNOWN Yes ZOCOR MODERATE MODERATE Yes Tetanus Vaccines Toxoid [id number] Drug Allergy Severe N/A 12/17/2011 Yes Tetanus Vaccines and Toxoid [id number] Drug Allergy Severe N/A 12/17/2011 Yes ampicillin [id number] Drug Allerg y Unknown N/A 12/20/2015 Medications [...] EDD DENIS Ot 786.50 09/18/2014 BJ ECHEVERRIA INTERNATIONAL NURSE Ot 789.00 2014 EDD DENIS Ot 786.50 [...] 786.50 CHEST PAIN NOS 12/20/2015 BJ ECHEVERRIA INTERNATIONAL NURSE Ot 789.00 ABDOMINAL PAIN, UNSPECIFIED SITE 12/20/2015 [...] BAKER MD Ot E86.0 DEHYDRATION 12/21/2015 RACHEL ABKER MD Ot E87.1 HYPO-OSMOLALITY AND HYPONATREMIA 12/21/2015 [...] MD Ot R19 .7 DIARRHEA, UNSPECIFIED 12/21/2015 SHERIRLL TIWARI MD Ot Z87.440 PERSONAL HISTORY OF [...] TREATMENT NOT CARRIED OUT 12/04/2016 BJ ECHEVERRIA INTERNATIONAL NURSE Ot M79.605 PAIN IN LEFT LEG 12/10/2016 JACKI BOBNYA Rouse INTERNATIONAL NURSE Ot M79.604 PAIN IN RIGHT LEG 12/10/2016 BJ ECHEVERRIA INTERNATIONAL NURSE Ot M79.605 PAIN IN LEFT LEG 12/26/2016 BJ ECHEVERRIA INTERNATIONAL NURSE Ot M79.604 PAIN IN RIGHT LEG 12/26/2016 BJ ECHEVERRIA INTERNATIONAL NURSE Ot M79.605 PAIN IN LEFT LEG 01/04/2017 Ot 719.46 CINTHIA NT PAIN-L/LEG 01/04/2017 Ot 785.9 CARD IOVAS SYS SYMP NEC 01/04/2017 Ot 790.1 ELEV ATED SEDIMENT RATE 01/04/2017 Ot 789.01 ABD OMINAL PAIN, RIGHT UPPER QUADRANT 01/04/2017 Ot V72.84 EXA M PRE- OPERATIVE NOS 01/04/2017 OLIVIA MALLORY, RACHEL Paula Ot 789.01 ABDOMINAL PAIN, RIGHT UPPER QUADRANT 01/04/2017 EDD DENIS BACK TENDER PAPER MACHINE Ot 786.50 CHEST PAIN NOS 01/04/2017 BJ [...] 9 GASTRO-ESOPHAGEAL REFLUX DISEASE WITHOUT 01/04/2017 VALE BRUCE DO Ot R19. 7 DIARRHEA, UNSPECIFIED 01/04/2017 VALE BRUCE DO Ot Z53. 8 PROCEDURE AND TREATMENT NOT CARRIED OUT 01/04/2017 JACKI BJ Rouse INTERNATIONAL NURSE Ot M79.604 PAIN IN RIGHT LEG 01/04/2017 BJ ECHEVERRIA INTERNATIONAL NURSE Ot M79.605 PAIN IN LEFT LEG 01/04/2017 [...] OSTEOARTHRITIS, UNSPECIFIED 01/04/2017 ODIN AGUIRRE Ot Z79.82 CREDENTIALING ASSISTANT (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 OF ASPIRIN 01/04/2017 ODIN AGUIRRE Ot Z79.84 FDC (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 OF ORAL HYPOGLYC 01/04/2017 ODIN [...] OSTEOARTHRITIS, UNSPECIFIED 01/08/2017 ODIN AGUIRRE Ot Z79.82 CREDENTIALING ASSISTANT (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 OF ASPIRIN 01/08/2017 ODIN AGUIRRE Ot Z79.84 CREDENTIALING ASSISTANT (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 OF ORAL HYPOGLYC 01/08/2017 ODIN [...] NICHARITY Ot I25.10 ATHSCL HEART DISEASE OF [place] CORONARY 02/08/2017 NI, MUKUNDHALLE Nasim Ot I65.22 OCCLUSION AND STENOSIS OF LEFT CAROTID A 02/08/2017 NI, CHARITY Rouse Ot J44.9 CHRONIC OBSTRUCTIVE PULMONARY DISEASE, U 02/08/2017 NI, MUKUNDHALLE Nasim Ot K21.9 GASTRO-ESOPHAGEAL REFLUX DISEASE WITHOUT 02/08/2017 CHARITY DAN Ot M81.0 AGE- RELATED OSTEOPOROSIS W/O CURRENT PAT 02/08/2017 CHARITY DAN Ot Z79.899 OTHER CREDENTIALING ASSISTANT (CURRENT) DRUG THERAPY 02/08/2017 CHARITY DAN N [...] DAN Ot I25.10 ATHSCL HEART DISEASE OF [place] CORONARY 02/26/2017 CHARITY DAN Ot I65.22 OCCLUSION AND STENOSIS OF LEFT CAROTID A 02/26/2017 CHARITY DAN Ot J44.9 CHRONIC OBSTRUCTIVE PULMONARY DISEASE, U 02/26/2017 CHARITY DAN Ot K21.9 GASTRO-ESOPHAGEAL REFLUX DISEASE WITHOUT 02/26/2017 CHARITY DAN Ot M81.0 AGE- RELATED OSTEOPOROSIS W/O CURRENT PAT 02/26/2017 CHARITY DAN Ot Z79.899 OTHER CREDENTIALING ASSISTANT (CURRENT) DRUG THERAPY 02/26/2017 CHARITY DAN Ot [...] DAN Ot I25.10 ATHSCL HEART DISEASE OF [place] CORONARY 05/08/2017 CHARITY DAN Ot I65.22 OCCLUSION AND STENOSIS OF LEFT CAROTID A 05/08/2017 CHARITY DAN Ot J44.9 CHRONIC OBSTRUCTIVE PULMONARY DISEASE, U 05/08/2017 CHARITY DAN Ot K21.9 GASTRO-ESOPHAGEAL REFLUX DISEASE WITHOUT 05/08/2017 CHARITY DAN Ot M81.0 AGE- RELATED OSTEOPOROSIS W/O CURRENT PAT 05/08/2017 CHARITY DAN Ot Z79.899 OTHER FDC (CURRENT) DRUG THERAPY 05/08/2017 CHARITY DAN Ot [...] Nasim Ot I25.10 ATHSCL HEART DISEASE OF [place] CORONARY 05/09/2017 CHARITY DAN Nasim Ot I65.22 OCCLUSION AND STENOSIS OF LEFT CAROTID A 05/09/2017 CHARITY DAN Nasim Ot J44.9 CHRONIC OBSTRUCTIVE PULMONARY DISEASE, U 05/09/2017 CHARITY DAN Nasim Ot K21.9 GASTRO-ESOPHAGEAL REFLUX DISEASE WITHOUT 05/09/2017 CHARITY DAN Nasim Ot M81.0 AGE- RELATED OSTEOPOROSIS W/O CURRENT PAT 05/09/2017 CHARITY DAN Nasim Ot Z79.899 OTHER FDC (CURRENT) DRUG THERAPY 05/09/2017 CHARITY DAN Nasim Ot Z90.710 ACQUIRED ABSENCE OF BOTH CERVIX AND UTER 05/22/2017 ALLISON RANDALL DO Ot E11.9 TYPE 2 DIABETES MELLITUS WITHOUT COMPLIC 05/22/2017 ALLISON RANDALL DO Ot I10 ESSENTIAL (PRIMARY) HYPERTENSION 05/22/2017 ALLISON RANDALL DO Ot I25.10 ATHSCL HEART DISEASE OF [place] CORONARY 11/01/2017 Ot V76.12 11/01/2017 Ot 272.4 [...] 786.50 CHEST PAIN NOS 11/01/2017 BJ ECHEVERRIA INTERNATIONAL NURSE Ot 789.00 ABDOMINAL PAIN, UNSPECIFIED SITE 11/01/2017 [...] TREATMENT NOT CARRIED OUT 11/01/2017 BJ ECHEVERRIA INTERNATIONAL NURSE Ot M79.604 PAIN IN RIGHT LEG 11/01/2017 BJ ECHEVERRIA INTERNATIONAL NURSE Ot M79.605 PAIN IN LEFT LEG 11/01/2017 ALLISON RANDALL DO S Ot E11.9 TYPE 2 DIABETES MELLITUS WITHOUT COMPLIC 11/01/2017 ORENDPÉREZ ESCOTO, ALLISON S Ot I10 ESSENTIAL (PRIMARY) HYPERTENSION 11/01/2017 TONIA ESCOTO, ALLISON S Ot I25.10 ATHSCL HEART DISEASE OF [place] CORONARY 11/01/2017 OLIVIA MALLORY, RACHEL Paula Ot 789.01 ABDOMINAL PAIN, RIGHT UPPER QUADRANT 11/01/2017 EDD DENIS Ot 786.50 CHEST PAIN NOS 11/01/2017 BJ ECHEVERRIA INTERNATIONAL NURSE Ot 789.00 ABDOMINAL PAIN, UNSPECIFIED SITE 11/01/2017 OLIVIA MALLORY, RACHEL Paula Ot M12.871 OTH SPECIFIC ARTHROPATHIES, NEC, RIGHT A 11/01/2017 OLIVIA MALLORY, RACHEL Paula Ot M12.872 OTH SPECIFIC ARTHROPATHIES, NEC, LEFT AN 11/01/2017 Ot M81.0 AGE- RELATED OSTEOPOROSIS W/O CURRENT PAT 11/01/2017 OLIVIA MALLORY, RACHEL Paula Ot E86.0 DEHYDRATION 11/01/2017 OLIVIA MALLORY, RACHEL Paula Ot E87.1 HYPO-OSMOLALITY AND HYPONATREMIA 11/01/2017 OLIIVA MALLORY, RACHEL Puala Ot E87.6 HYPOKALEMIA 11/01/2017 BRUCE DOVALE D Ot K21. 9 GASTRO-ESOPHAGEAL REFLUX DISEASE WITHOUT 11/01/2017 BRUCE DO VALE D Ot R19. 7 DIARRHEA, UNSPECIFIED 11/01/2017 BRUCE DOVALE D Ot Z53. 8 PROCEDURE AND TREATMENT NOT CARRIED OUT 11/01/2017 BJ ECHEVERRIA INTERNATIONAL NURSE Ot M79.604 PAIN IN RIGHT LEG 11/01/2017 BJ ECHEVERRIA INTERNATIONAL NURSE Ot M79.605 PAIN IN LEFT LEG 11/01/2017 ALLISON RANDALL DO S Ot E11.9 TYPE 2 DIABETES MELLITUS WITHOUT COMPLIC 11/01/2017 ALLISON RANDALL DO S Ot I10 ESSENTIAL (PRIMARY) HYPERTENSION 11/01/2017 ALLISON RANDALL DO S Ot I25.10 ATHSCL HEART DISEASE OF [place] CORONARY 11/01/2017 CHARITY DAN Ot D58.2 OTHER [...] DAN Ot I25.10 ATHSCL HEART DISEASE OF [place] CORONARY 11/01/2017 CHARITY DAN Ot I65.22 OCCLUSION AND STENOSIS OF LEFT CAROTID A 11/01/2017 CHARITY DAN Ot J44.9 CHRONIC OBSTRUCTIVE PULMONARY DISEASE, U 11/01/2017 CHARITY DAN Ot K21.9 GASTRO-ESOPHAGEAL REFLUX DISEASE WITHOUT 11/01/2017 CHARITY DAN Ot M81.0 AGE- RELATED OSTEOPOROSIS W/O CURRENT PAT 11/01/2017 CHARITY DAN Ot Z79.899 OTHER CREDENTIALING ASSISTANT (CURRENT) DRUG THERAPY 11/01/2017 CHARITY DAN Ot [...] S Ot I25.10 ATHSCL HEART DISEASE OF [place] CORONARY 05/02/2018 CHARITY DAN Nasim Ot D58.2 [...] Nasim Ot I25.10 ATHSCL HEART DISEASE OF [place] CORONARY 05/02/2018 CHARITY DAN Nasim Ot I65.22 OCCLUSION AND STENOSIS OF LEFT CAROTID A 05/02/2018 CHARITY DAN Nasim Ot J44.9 CHRONIC OBSTRUCTIVE PULMONARY DISEASE, U 05/02/2018 CHARITY DAN Nasim Ot K21.9 GASTRO-ESOPHAGEAL REFLUX DISEASE WITHOUT 05/02/2018 CHARITY DAN Nasim Ot M81.0 AGE- RELATED OSTEOPOROSIS W/O CURRENT PAT 05/02/2018 CHARITY DAN Nasim Ot Z79.899 OTHER FDC (CURRENT) DRUG THERAPY 05/02/2018 CHARITY DAN Nasim [...] TEAR/RUPTR OF LEFT SHOU 07/08/2018 EDD DENIS BACK TENDER PAPER MACHINE Ot 786.50 CHEST PAIN NOS 07/08/2018 ECHEVERRIABOBNYA Rouse INTERNATIONAL NURSE Ot 789.00 ABDOMINAL PAIN, UNSPECIFIED SITE 07/08/2018 [...] TREATMENT NOT CARRIED OUT 07/08/2018 BJ ECHEVERRIA INTERNATIONAL NURSE Ot M79.604 PAIN IN RIGHT LEG 07/08/2018 BJ ECHEVERRIA INTERNATIONAL NURSE Ot M79.605 PAIN IN LEFT LEG 07/08/2018 ALLISON RANDALL DO Ot E11.9 TYPE 2 DIABETES MELLITUS WITHOUT COMPLIC 07/08/2018 ALLISON RANDALL DO S Ot I10 ESSENTIAL (PRIMARY) HYPERTENSION 07/08/2018 ALLISON RANDALL DO Ot I25.10 ATHSCL HEART DISEASE OF [place] CORONARY 07/08/2018 CHARITY DAN Ot D58.2 OTHER [...] Nasim Ot I25.10 ATHSCL HEART DISEASE OF [place] CORONARY 07/08/2018 CHARITY DAN Nasim Ot I65.22 OCCLUSION AND STENOSIS OF LEFT CAROTID A 07/08/2018 NI CHARITY Rouse Ot J44.9 CHRONIC OBSTRUCTIVE PULMONARY DISEASE, U 07/08/2018 CHARITY DAN Nasim Ot K21.9 GASTRO-ESOPHAGEAL REFLUX DISEASE WITHOUT 07/08/2018 CHARITY DAN Nasim Ot M81.0 AGE- RELATED OSTEOPOROSIS W/O CURRENT PAT 07/08/2018 CHARITY DAN Nasim Ot Z79.899 OTHER FDC (CURRENT) DRUG THERAPY 07/08/2018 CHARITY DAN Nasim [...] TINEO MD, Ot Y92.[address] IN [facility] NON-INSTIT[facility] (PRIVATE 12/04/2018 MANNY TINEO MD, Ot Y93.02 ACTIVITY, RUNNING 12/04/2018 MANNY TINEO MD, Ot Z79.82 FDC (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 OF ASPIRIN 12/04/2018 MANNY TINEO MD, Ot Z79.84 CREDENTIALING ASSISTANT (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 OF ORAL HYPOGLYC 12/04/2018 MANNY [...] DO Ot I25.10 ATHSCL HEART DISEASE OF [place] CORONARY 12/08/2018 GUADALUPE ARANGO DO Ot I73.9 [...] ENCOUNTER 12/08/2018 GUADALUPE ARANGO DO Ot Z79.82 CREDENTIALING ASSISTANT (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 OF ASPIRIN 12/08/2018 GUADALUPE ARANGO DO Ot Z79.84 CREDENTIALING ASSISTANT (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 OF ORAL HYPOGLYC 12/08/2018 GUADALUPE ARANGO DO Ot Z79.89 9 OTHER CREDENTIALING ASSISTANT (CURRENT) DRUG THERAPY 12/08/2018 GUADALUPE ARANGO DO [...] DO Ot I25.10 ATHSCL HEART DISEASE OF [place] CORONARY 12/18/2018 ARANGO DO, GUADALUPE Ot N18.9 CHRONIC KIDNEY DISEASE, UNSPECIFIED 12/18/2018 NBA ESCOTO GUADALUPE Ot R29.6 REPEATED FALLS 12/18/2018 NBA ESCOTO GUADALUPE Ot R42 DIZZINESS AND GIDDINESS 12/18/2018 ARANGOSUKI ESCOTO GUADALUPE Ot R53.1 WEAKNESS 12/18/2018 ARANGOSUKI ESCOTO GUADALUPE Ot S05.11 XD CONTUSION OF EYEBALL AND ORBITAL TISSUES 12/18/2018 NBA ESCOTO GUADALUPE Ot S05.12 XD CONTUSION OF EYEBALL AND ORBITAL TISSUES 12/18/2018 NBA ESCOTO GUADALUPE Ot S61.41 1D LACERATION WITHOUT FOREIGN BODY OF RIGHT 12/18/2018 NBA ESCOTO GUADALUPE Ot W19.XX XD UNSPECIFIED FALL, SUBSEQUENT ENCOUNTER 12/18/2018 NBA ESCOTO GUADALUPE Ot Z79.4 CREDENTIALING ASSISTANT (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 OF INSULIN 03/23/2019 GARCES DO, [...] Ot I25.1 0 ATHSCL HEART DISEASE OF [place] CORONARY 03/23/2019 GARCES DO, LINCOLN L Ot J44.9 CHRONIC OBSTRUCTIVE PULMONARY DISEASE, U 03/23/2019 GARCSE DO, LINCOLN L Ot R53.8 3 OTHER FATIGUE 03/23/2019 GARCES DO, LINCOLN L Ot Z79.4 FDC (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 OF INSULIN 03/23/2019 GARCES DO, LINCOLN L Ot Z79.8 2 FDC (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 OF ASPIRIN 03/23/2019 GARCES DO, [...] ACQUIRED ABSENCE OF BOTH CERVIX AND UTER 03/26/2019 Guadalupe Arango W 038.9 UNSPECIFIED SEPTICEMIA 03/26/2019 Guadalupe Arango W 250.00 DIABETES MELLITUS WITHOUT MENTION OF COMPLICATION, TYPE II OR UNSPECIFIED TYPE, NOT STATED UNCONTROLLED 03/26/2019 Guadalupe Arango W 357.9 UNSPECIFIED INFLAMMATORY AND TOXIC NEUROPATHIES 03/26/2019 Guadalupe Arango W 401.0 MALIGNANT ESSENTIAL HYPERTENSION 03/26/2019 Guadalupe Arango W 414.01 CORONARY ATHEROSCLEROSIS OF [place] CORONARY ARTERY 03/26/2019 Guadalupe Arango W 443.9 PERIPHERAL VASCULAR DISEASE, UNSPECIFIED 03/26/2019 Guadalupe Arango W 491.20 OBSTRUCTIVE CHRONIC BRONCHITIS, WITHOUT EXACERBATION 03/26/2019 Guadalupe Arango W 530.81 ESOPHAGEAL REFLUX 03/26/2019 Guadalpue Arango W 562.12 DIVERTICULOSIS OF COLON WITH HEMORRHAGE 03/26/2019 Guadalupe Arango W 584.9 ACUTE KIDNEY FAILURE, UNSPECIFIED 03/26/2019 Guadalupe Arango W 599.0 URINARY TRACT INFECTION, SITE NOT SPECIFIED 03/26/2019 Guadalupe Arango W A41.9 SEPSIS, UNSPECIFIED ORGANISM 03/26/2019 Guadalupe Arango W E11.9 TYPE 2 DIABETES MELLITUS WITHOUT COMPLICATIONS 03/26/2019 Guadalupe Arango W G62.9 POLYNEUROPATHY, UNSPECIFIED 03/26/2019 Guadalupe Arango W I10 ESSENTIAL (PRIMARY) HYPERTENSION 03/26/2019 Guadalupe Arango W I25.10 ATHSCL HEART DISEASE OF [place] CORONARY ARTERY W/O ANG PCTRS 03/26/2019 Guadalupe Arango W I73.9 PERIPHERAL VASCULAR DISEASE, UNSPECIFIED 03/26/2019 Guadalupe Arango W J44.9 CHRONIC OBSTRUCTIVE PULMONARY DISEASE, UNSPECIFIED 03/26/2019 Guadalupe Arango W K21.9 GASTRO- ESOPHAGEAL REFLUX DISEASE WITHOUT ESOPHAGITIS 03/26/2019 Guadalupe Arango W K57.30 DVRTCLOS OF LG INT W/O PERFORATION OR ABSCESS W/O BLEEDING 03/26/2019 Guadalupe Arango W N17.9 ACUTE KIDNEY FAILURE, UNSPECIFIED 03/26/2019 Guadalupe Arango W N39.0 URINARY TRACT INFECTION, SITE NOT SPECIFIED 03/28/2019 GARCES DO, LINCOLN L Ot A41.9 [...] Ot I25.1 0 ATHSCL HEART DISEASE OF [place] CORONARY 03/28/2019 GARCES DO, LINCOLN L Ot J44.9 CHRONIC OBSTRUCTIVE PULMONARY DISEASE, U 03/28/2019 GARCES DO, LINCOLN L Ot R53.8 3 OTHER FATIGUE 03/28/2019 GARCES DO, LINCOLN L Ot Z79.4 CREDENTIALING ASSISTANT (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 OF INSULIN 03/28/2019 GARCES DO, LINCOLN L Ot Z79.8 2 FDC (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 OF ASPIRIN 03/28/2019 GARCES DO, [...] Ot I25.1 0 ATHSCL HEART DISEASE OF [place] CORONARY 03/31/2019 GARCES DO, LINCOLN L Ot J44.9 CHRONIC OBSTRUCTIVE PULMONARY DISEASE, U 03/31/2019 GARCES DO, LINCOLN L Ot R53.8 3 OTHER FATIGUE 03/31/2019 GARCES DO, LINCOLN L Ot Z79.4 CREDENTIALING ASSISTANT (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 OF INSULIN 03/31/2019 GARCES DO, LINCOLN L Ot Z79.8 2 CREDENTIALING ASSISTANT (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 OF ASPIRIN 03/31/2019 GARCES DO, [...] ABSENCE OF BOTH CERVIX AND UTER 04/11/2019 JESSICA BERNSTEIN APRN Ot E11.40 TYPE 2 DIABETES MELLITUS WITH DIABETIC N 04/11/2019 JESSICA BERNSTEIN APRN Ot F03.90 UNSPECIFIED DEMENTIA WITHOUT BEHAVIORAL 04/11/2019 JESSICA BERNSTEIN APRN Ot F41 .9 ANXIETY DISORDER, UNSPECIFIED 04/11/2019 JESSICA BERNSTEIN APRN Ot I10 ESSENTIAL (PRIMARY) HYPERTENSION 04/11/2019 JESSICA BERNSTEIN APRN Ot I25.10 ATHSCL HEART DISEASE OF [place] CORONARY 04/11/2019 JESSICA BERNSTEIN APRN Ot J44 .9 CHRONIC OBSTRUCTIVE PULMONARY DISEASE, U 04/11/2019 JESSICA BERNSTEIN APRN Ot M25.571 PAIN IN RIGHT ANKLE AND JOINTS OF RIGHT 04/11/2019 JESSICA BERNSTEIN APRN Ot S82.891A OTH FRACTURE OF RIGHT LOWER LEG, INIT FO 04/11/2019 JESSICA BERNSTEIN APRN Ot W19.XXXA UNSPECIFIED FALL, INITIAL ENCOUNTER 04/11/2019 JESSICA BERNSTEIN APRN Ot Z79 .4 FDC (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 OF INSULIN 04/11/2019 JESSICA BERNSTEIN APRN Ot Z79.82 FDC (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 OF ASPIRIN 04/11/2019 JESSICA BERNSTEIN APRN Ot Z82.49 FAMILY HX OF ISCHEM HEART DIS AND OTH DI 04/11/2019 JESSICA BERNSTEIN APRN Ot Z87.440 PERSONAL HISTORY OF URINARY (TRACT) INFE 04/11/2019 JESSICA BERNSTEIN APRN Ot Z88 .1 ALLERGY STATUS TO OTHER ANTIBIOTIC AGENT 04/11/2019 JESSICA BERNSTEIN APRN Ot Z88 .7 ALLERGY STATUS TO SERUM AND VACCINE STAT 04/11/2019 JESSICA BERNSTEIN APRN Ot Z90.710 ACQUIRED ABSENCE OF BOTH CERVIX AND UTER 04/11/2019 EDD DENIS Ot 786.50 CHEST PAIN NOS 04/11/2019 BJ ECHEVERRIA APRN Ot 789.00 ABDOMINAL PAIN, UNSPECIFIED SITE 04/11/2019 OLIVIA MALLORY, RACHEL Paula Ot M12.871 OTH SPECIFIC ARTHROPATHIES, NEC, RIGHT A 04/11/2019 RACHEL BAKER MD Ot M12.872 OTH SPECIFIC ARTHROPATHIES, NEC, LEFT AN 04/11/2019 Ot M81.0 AGE- RELATED OSTEOPOROSIS W/O CURRENT PAT 04/11/2019 RACHEL BAKER MD Ot E86.0 DEHYDRATION 04/11/2019 RACHEL BAKER MD Ot E87.1 HYPO-OSMOLALITY AND HYPONATREMIA 04/11/2019 RACHEL BAKER MD Ot E87.6 HYPOKALEMIA 04/11/2019 VALE BRUCE DO Ot K21. 9 GASTRO-ESOPHAGEAL REFLUX DISEASE WITHOUT 04/11/2019 VALE BRUCE DO Ot R19. 7 DIARRHEA, UNSPECIFIED 04/11/2019 VALE BRUCE DO Ot Z53. 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 04/11/2019 NICHARITY Ot D72.829 ELEVATED WHITE BLOOD CELL COUNT, UNSPECI 04/11/2019 NICHARITY Ot E11.43 TYPE 2 DIABETES W DIABETIC AUTONOMIC (PO 04/11/2019 CHARITY DAN Ot E78.00 PURE HYPERCHOLESTEROLEMIA, UNSPECIFIED 04/11/2019 CHARITY DAN Ot F17.210 NICOTINE DEPENDENCE, CIGARETTES, UNCOMPL 04/11/2019 CHARITY DAN Ot F32.9 MAJOR DEPRESSIVE DISORDER, SINGLE EPISOD 04/11/2019 CHARITY DAN Ot F41.9 ANXIETY DISORDER, UNSPECIFIED 04/11/2019 NICHARITY Ot I10 ESSENTIAL (PRIMARY) HYPERTENSION 04/11/2019 CHARITY DAN Ot I25.10 ATHSCL HEART DISEASE OF [place] CORONARY 04/11/2019 NI MUKUNDHALLE Rouse Ot I65.22 OCCLUSION AND STENOSIS OF LEFT CAROTID A 04/11/2019 CHARITY DAN Ot J44.9 CHRONIC OBSTRUCTIVE PULMONARY DISEASE, U 04/11/2019 CHARITY DAN Ot K21.9 GASTRO-ESOPHAGEAL REFLUX DISEASE WITHOUT 04/11/2019 CHARITY DAN Ot M81.0 AGE- RELATED OSTEOPOROSIS W/O CURRENT PAT 04/11/2019 CHARITY DAN Ot Z79.899 OTHER CREDENTIALING ASSISTANT (CURRENT) DRUG THERAPY 04/11/2019 CHARITY DAN Ot Z90.710 ACQUIRED ABSENCE OF BOTH CERVIX AND UTER 04/11/2019 OLIVIA MALLORY, RACHEL Paula Ot M19.012 PRIMARY OSTEOARTHRITIS, LEFT SHOULDER 04/11/2019 OLIVIA MALLORY, RACHEL Paula Ot M75.102 UNSP ROTATR-CUFF TEAR/RUPTR OF LEFT SHOU 04/11/2019 OLIVIA MALLORY, RACHEL Paula Ot M19.012 PRIMARY OSTEOARTHRITIS, LEFT SHOULDER 04/14/2019 JESSICA BERNSTEIN APRN Ot E11.40 TYPE 2 DIABETES MELLITUS WITH DIABETIC N 04/14/2019 JESSICA BERNSTEIN APRN Ot F03.90 UNSPECIFIED DEMENTIA WITHOUT BEHAVIORAL 04/14/2019 JESSICA BERNSTEIN APRN Ot F41 .9 ANXIETY DISORDER, UNSPECIFIED 04/14/2019 JESSICA BERNSTEIN APRN Ot I10 ESSENTIAL (PRIMARY) HYPERTENSION 04/14/2019 JESSICA BERNSTEIN APRN Ot I25.10 ATHSCL HEART DISEASE OF [place] CORONARY 04/14/2019 JESSICA BERNSTEIN APRN Ot J44 .9 CHRONIC OBSTRUCTIVE PULMONARY DISEASE, U 04/14/2019 JESSICA BERNSTEIN APRN Ot M25.571 PAIN IN RIGHT ANKLE AND JOINTS OF RIGHT 04/14/2019 JESSICA BERNSTEIN APRN Ot S82.891A OTH FRACTURE OF RIGHT LOWER LEG, INIT FO 04/14/2019 JESSICA BERNSTEIN APRN Ot W19.XXXA UNSPECIFIED FALL, INITIAL ENCOUNTER 04/14/2019 JESSICA BERNSTEIN APRN Ot Z79 .4 FDC (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 OF INSULIN 04/14/2019 JESSICA BERNSTEIN APRN Ot Z79.82 CREDENTIALING ASSISTANT (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 OF ASPIRIN 04/14/2019 JESSICA BERNSTEIN APRN Ot Z82.49 FAMILY HX OF ISCHEM HEART DIS AND OTH DI 04/14/2019 JESSICA BERNSTEIN APRN Ot Z87.440 PERSONAL HISTORY OF URINARY (TRACT) INFE 04/14/2019 JESSICA BERNSTEIN APRN Ot Z88 .1 ALLERGY STATUS TO OTHER ANTIBIOTIC AGENT 04/14/2019 JESSICA BERNSTEIN APRN Ot Z88 .7 ALLERGY STATUS TO SERUM AND VACCINE STAT 04/14/2019 JESSICA BERNSTEIN APRN Ot Z90.710 ACQUIRED ABSENCE OF BOTH CERVIX AND UTER 05/26/2019 EDD DENIS Ot 786.50 CHEST PAIN NOS 05/26/2019 BJ ECHEVERRIA APRN Ot 789.00 ABDOMINAL PAIN, UNSPECIFIED SITE 05/26/2019 OLIVIA MALLORY, RACHEL Paula Ot M12.871 OTH SPECIFIC ARTHROPATHIES, NEC, RIGHT A 05/26/2019 RACHEL BAKER MD Ot M12.872 OTH SPECIFIC ARTHROPATHIES, NEC, LEFT AN 05/26/2019 Ot M81.0 AGE- RELATED OSTEOPOROSIS W/O CURRENT PAT 05/26/2019 OLIVIA MALLORY, RACHEL Paula Ot E86.0 DEHYDRATION 05/26/2019 RACHLE BAKER MD Ot E87.1 HYPO-OSMOLALITY AND HYPONATREMIA 05/26/2019 RACHEL BAKER MD Ot E87.6 HYPOKALEMIA 05/26/2019 BRUCE DO, VALE D Ot K21. 9 GASTRO-ESOPHAGEAL REFLUX DISEASE WITHOUT 05/26/2019 BRUCE DO, VALE D Ot R19. 7 DIARRHEA, UNSPECIFIED 05/26/2019 BRUCE DO, VALE D Ot Z53. 8 PROCEDURE AND TREATMENT NOT CARRIED OUT 05/26/2019 BJ ECHEVERRIA APRN Ot M79.604 PAIN IN RIGHT LEG 05/26/2019 BJ ECHEVERRIA APRN Ot M79.605 PAIN IN LEFT LEG 05/26/2019 ALLISON RANDALL DO S Ot E11.9 TYPE 2 DIABETES MELLITUS WITHOUT COMPLIC 05/26/2019 ALLISON RANDALL DO S Ot I10 ESSENTIAL (PRIMARY) HYPERTENSION 05/26/2019 ALLISON RANDALL DO S Ot I25.10 ATHSCL HEART DISEASE OF [place] CORONARY 05/26/2019 CHARITY DAN Ot 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 05/26/2019 CHARITY DAN Ot D72.829 ELEVATED WHITE BLOOD CELL COUNT, UNSPECI 05/26/2019 CHARITY DAN Ot E11.43 TYPE 2 DIABETES W DIABETIC AUTONOMIC (PO 05/26/2019 CHARITY DAN Ot E78.00 PURE HYPERCHOLESTEROLEMIA, UNSPECIFIED 05/26/2019 CHARITY DAN Ot F17.210 NICOTINE DEPENDENCE, CIGARETTES, UNCOMPL 05/26/2019 CHARITY DAN Ot F32.9 MAJOR DEPRESSIVE DISORDER, SINGLE EPISOD 05/26/2019 CHARITY DAN Ot F41.9 ANXIETY DISORDER, UNSPECIFIED 05/26/2019 CHARITY DAN Ot I10 ESSENTIAL (PRIMARY) HYPERTENSION 05/26/2019 CHARITY DAN Ot I25.10 ATHSCL HEART DISEASE OF [place] CORONARY 05/26/2019 CHARITY DAN Ot I65.22 OCCLUSION AND STENOSIS OF LEFT CAROTID A 05/26/2019 CHARITY DAN Ot J44.9 CHRONIC OBSTRUCTIVE PULMONARY DISEASE, U 05/26/2019 CHARITY DAN Ot K21.9 GASTRO-ESOPHAGEAL REFLUX DISEASE WITHOUT 05/26/2019 CHARITY DAN Ot M81.0 AGE- RELATED OSTEOPOROSIS W/O CURRENT PAT 05/26/2019 CHARITY DAN Ot 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.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 Results Test [...] glucose measurement by g lucometer (mass/volume) - 08/18/19 17:02 Capillary blood glucose measurement by glucometer [...] 06/10 14:45 Blood monocytes/100 leukocytes 6 % NR Manual blood segmented neutrophils/100 leukocytes 80 % NRG Blood band neutrophils/100 leukocytes 0 % NRG Manual blood lymphocytes/100 leukocytes 11 % NRG Manual eosinophils/100 leukocytes in nose 2 % NRG Manual blood basophils/100 leukocytes 1 % NRG Blood anisocytosis detection by light microscopy [facility] Influenza virus A and B antigen detectio n - 03/23/19 14:55 FLU RESULT NEGATIVE FOR INFLUENZA A AND B ANTIGENS BY IA [facility] Comprehensive metabolic panel - 03/23/19 14:55 Serum [...] 0.4 mg/dL 0.2-1.2 TP 6.6 g/dL 6.0-8.3 Complete urinalysis with reflex to cultu re - 05/23/19 07:30 Urine color determination YELLOW NRG Urine clarity determination CLEAR NR G Urine pH measurement by test strip 6.0 5-9 Specific gravity of urine by test strip 1.015 1.016-1.022 Urine protein assay by test strip, semi-quantitative NEGATIVE NEGATIVE Urine glucose detection by automated test strip NE GATIVE NEGATIVE Erythrocytes detection in urine sediment by [...] urinalysis with reflex to culture NO NRG Encounters ACCT No. Visit Date/Time Discharge Status Pt. Type Provider Facility Loc./Unit Complaint [id number] 03/23/2019 18:00:00 03/26/2019 09:00: 00 DIS Inpatient [facility] enter ICU [id number] 03/23/2019 19:22:08 Document Registration [id number] 05/23/2019 14:20:00 23:59:59 CLS Outpatient OLIVIA MALLORY, RACHEL Paula [facility] LABNPT [id number] 04/11/2019 20:49:00 21:57:00 DIS Emergency JSESICA BERNSTEIN APRN [facility] ER FALL/RT FOOT INJURY [id number] 03/23/2019 14:40:00 17:40:00 DIS Emergency LINCOLN GARCES DO [facility] ER LETHARGIC [id number] 12/08/2018 10:30:00 13:20:00 DIS Inpatient ARANGO DO, GUADALUPE [facility] IRF RECURRENT FALLS [id number] 12/06/2018 22:30:00 019 08:27:00 DIS Inpatient ARANGO DO, GUADALUPE [facility] 4TH MULTIPLE FALLS, WEAKNES S, HYPERGLYCEMIA, [id number] 12/04/2018 09:34:00 11:26:00 DIS Emergency MANNY TINEO MD [facility] ER FALL [id number] 05/07/2018 12:09:00 23:59:59 CLS Outpatient RACHEL BAKER MD [facility] RAD PAIN IN LEFT SHOULDER [id number] 05/02/2018 12:51:00 23:59:59 CLS Outpatient RACHEL BAKER MD [facility] RAD M25.512 [id number] 05/09/2017 00:38:00 018 23:59:59 CLS Preadmit CHARITY DAN [facility] ONC [id number] 03/07/2017 14:53:00 018 00:01:00 DIS Outpatient CHARITY DAN [facility] ONC [id number] 04/26/2017 07:00:00 018 23:59:59 CLS Outpatient ALLISON RANDALL DO [facility] HH CAD,DM TYPE 2,H [place] [id number] 01/08/2017 12:46:00 017 23:59:59 CLS Preadmit ANTONINA LEAL INTERNATIONAL NURSE [facility] WOUNDCARE [id number] 01/04/2017 13:09:00 017 15:46:00 DIS Emergency ODIN AGUIRRE [facility] ER OPEN WOUNDS B FEET [id number] 12/04/2016 11:26:00 017 23:59:59 CLS Outpatient BJ ECHEVERRIA APRN [facility] RAD PAIN IN RIGHT LEG [id number] 01/25/2016 09:00:00 09:00:00 CAN Preadmit VALE BRUCE DO Nisa [facility] DIARRHEA;GERD [id number] 01/24/2016 10:38:00 016 23:59:59 CLS Outpatient VALE BRUCE DO [facility] DIARRHEA;GERD [id number] 01/18/2016 06:34:00 15:00:00 DIS Outpatient VALE BRUCE DO Nisa [facility] PREOP DIARRHEA;GERD [id number] 12/20/2015 11:30:00 18:12:00 DIS Inpatient SHERRILL TIWARI MD [facility] 4TH RLQ PAIN DIARRHEA ACUTE RENAL INSUFFICIENCY [id number] 11/30/2015 12:24:00 23:59:59 CLS Outpatient RACHEL BAKER MD [facility] DEYHDRATION,HYPOKALEMI A [id number] 04/25/2015 12:34:00 016 23:59:59 CLS Outpatient RACHEL BAKER MD [facility] RAD DISORDER OF JOINT OF A NKLE AND FOOT [id number] 08/12/2014 09:29:00 015 23:59:59 CLS Outpatient BJ ECHEVERRIA APRN [facility] RAD RUQ PAIN [id number] 08/02/2014 09:27:00 015 23:59:59 CLS Outpatient EDD DENIS [facility] CARD CHEST PAIN [id number] 08/02/2013 22:17:00 014 01:13:00 DIS Emergency MANNY TINEO MD [facility] ER ABD PAIN;DIARRH EA [id number] 10/09/2012 08:41:00 013 23:59:59 CLS Outpatient RACHEL BAKER MD [facility] RAD RUQ PAIN [id number] 05/23/2019 14:20:00 Document Registration [id number] 11/01/2017 02:39:00 Document Registration [id number] 05/12/2015 11:33:00 Document Registration [id number] 08/02/2014 09:23:00 Document Registration [id number] 08/02/2014 09:23:00 Document Registration [id number] 08/02/2014 09:23:00 Document Registration [id number] 12/18/2011 06:14:00 Document Registration [id number] 10/29/2011 08:53:00 Document Registration [id number] 10/22/2011 06:54:00 Document Registration [id number] 11/13/2010 08:06:00 Document Registration [id number] 08/10/2010 07:40:00 Document Registration [id number] 05/31/2010 08:11:00 Document Registration [id number] 04/17/2010 10:03:00 Document Registration [id number] 10/26/2009 07:14:00 Document Registration [id number] 05/03/2008 09:20:00 Document Registration [id number] 06/18/2018 18:17:50 06/18/2018 23:59:5 9 [facility] [id number] 03/23/2019 18:00:00 Document Registration
[2019-11-10 03:06] LABS: BASOPHILS % (AUTO) 0 % (0-10); EOSINOPHILS # (AUTO) 0.2 10^3/uL (0.0-0.3); EOSINOPHILS % (AUTO) 3 % (0-10); HEMATOCRIT 35 % (35-52); HEMOGLOBIN 11.3 G/DL (11.5-16.0); LYMPHOCYTES # (AUTO) 1.4 X 10^3 (1.0-4.0); LYMPHOCYTES % (AUTO) 23 % (12-44); MEAN CORPUSCULAR HEMOGLOBIN 30 PG (25-34); MEAN CORPUSCULAR HGB CONC 33 G/DL (32-36); MEAN CORPUSCULAR VOLUME 91 FL (80-99); MEAN PLATELET VOLUME 9.3 FL (7.4-10.4); MONOCYTES # (AUTO) 0.6 X 10^3 (0.0-1.0); MONOCYTES % (AUTO) 10 % (0-12); NEUTROPHILS % (AUTO) 64 % (42-75); PLATELET COUNT 130 10^3/uL (130-400); WHITE BLOOD COUNT 6.3 10^3/uL (4.3-11.0)
[2019-11-10 03:12] LABS: BILIRUBIN,URINE NEGATIVE (NEGATIVE); CLARITY,URINE TURBID; COLOR,URINE YELLOW; GLUCOSE, URINE (UA) 3+ (NEGATIVE); KETONES,URINE NEGATIVE (NEGATIVE); LEUKOCYTE ESTERASE ,URINE 3+ (NEGATIVE); NITRITE,URINE NEGATIVE (NEGATIVE); PH,URINE 6.5 (5-9); PROTEIN,URINE NEGATIVE (NEGATIVE)
[2019-11-10 03:23] LABS: ALBUMIN 4.2 GM/DL (3.2-4.5); POTASSIUM 4.5 MMOL/L (3.6-5.0)
[2019-11-10 03:24] LABS: CALCIUM 9.9 MG/DL (8.5-10.1)
[2019-11-10 03:25] LABS: BACTERIA,URINE FEW /HPF; RBC,URINE 0-2 /HPF; WBC,URINE 50-100 /HPF
[2019-11-10 03:26] LABS: AMORPHOUS SEDIMENT,UR FEW AMOR URATES /LPF; SQUAMOUS EPITHELIAL CELL,UR 0-2 /HPF; YEAST,URINE LARGE /HPF
[2019-11-10 03:29] LABS: CREATININE SERUM 2.06 MG/DL (0.60-1.30)
[2019-11-10 03:31] LABS: MAGNESIUM 2.5 MG/DL (1.6-2.4)
[2019-11-10 03:52] LABS: TSH (THYROID ANALYZER) 4.01 UIU/ML (0.35-4.94)
[2019-11-10] MEDS ORDERED: NS IV 1000 ML 1,000 ML IV SCH (03:55)
[2019-11-10] MEDS ORDERED: LEVOFLOXACIN 500 MG/100 ML IV 100 ML IV ONE (04:00)
--- NOTE | 2019-11-10 05:01 | ED General ---
General Chief Complaint: Lower Extremity Stated Complaint: FALL,UTI Nursing Triage Note: CLIENT MANAGER LARGE LAW THAT PRESENTS WITH PT REPORTS THAT PT FELL THREE TIMES YESTERDAY BETWEEN [phone]. PT DOES NOT REPORT ANY PAIN. CLIENT MANAGER LARGE LAW STATES THERE IS A BRUISE ON LEFT HIP AND BRUISES ON ABDOMEN FROM INSULIN INJECTIONS. CLIENT MANAGER LARGE LAW REPORTS PT IS SLURRING WORDS WHICH IS UNCOMMON FOR PT. CLIENT MANAGER LARGE LAW REPORTS PT HAS A URI AND YEAST INFECTION. Nursing Sepsis Screen: No Definite Risk Source of Information: Patient, Assisted Records Exam Limitations: No Limitations History of Present Illness Date Seen by Provider: Nov 10, 2019 Time Seen by Provider: 02:05 Initial Comments This 69-year-old woman is brought to the emergency room by prison staff because of multiple falls this evening. Patient appears weak. She reportedly is being treated for UTI and medication filling record shows a recent prescription for Cefdinir. A current MAR is not provided. She denies any head injury. She denies any left hip pain but does have some minor left knee pain where she has an abrasion. She is diabetic but has not had any noted hypoglycemia. Review of her chart notes multiple sedating medications. Allergies and Home Medications Allergies Coded Allergies: Tetanus Vaccines and Toxoid (Unverified Allergy, Severe, 12/17/11) SWOLLEN HOT RED ARM ampicillin (Unverified Allergy, Unknown, 12/20/15) Home Medications Alendronate Sodium 70 Mg Tablet, 70 MG PO Gaines, (Reported) Alprazolam 0.5 Mg Tablet, 0.5 MG PO DAILY Prescribed by: GUADALUPE AUSTIN on 12/18/18857 Alprazolam 0.5 Mg Tablet, 1 MG PO HS TAKES 2 (0.5MG) TABLETS Prescribed by: GUADALUPE AUSTIN on 12/18/18857 Amlodipine Besylate 5 Mg Tablet, 5 MG PO 1800, (Reported) Aspirin 81 Mg Tablet.dr, 81 MG PO DAILY, (Reported) Bupropion HCl 300 Mg Tab.er.24h, 300 MG PO DAILY, (Reported) Calcium Carb & Citrate/Vit D3 1 Each Tablet.er, 1 TAB PO DAILY, (Reported) Gabapentin 600 Mg Tablet, 1,200 MG PO TID, (Reported) TAKES 2 (600MG) TABLETS Gemfibrozil 600 Mg Tablet, 600 MG PO BID, (Reported) Glimepiride 4 Mg Tablet, 4 MG PO BID, (Reported) Hydrocodone Bit/Acetaminophen 1 Tab Tab, 1 EACH PO TID PRN for PAIN-MODERATE Prescribed by: JESSICA BERNSTEIN on 04/11/192139 Ibuprofen 200 Mg Tablet, 800 MG PO TID PRN for PAIN-MILD, (Reported) TAKES 4 (200MG) TABLETS Insulin Aspart 100 Unit/1 Ml Susp, 0 UNIT SC ACHS Prescribed by: GUADALUPE AUSTIN on 12/18/18857 Insulin Determir 1,000 Units/10 Ml Soln, 15 UNIT SQ BID Prescribed by: GUADALUPE AUSTIN on 12/18/18857 Levofloxacin 250 Mg Tablet, 250 MG PO DAILY Prescribed by: SHARAD HACKETT on 11/10/19 0509 Linagliptin 5 Mg Tablet, 5 MG PO DAILY, (Reported) Meclizine HCl 25 Mg Tablet, 12.5 MG PO Q12HR PRN for Dizziness Prescribed by: GUADALUPE AUSTIN on 12/18/18857 Meloxicam 15 Mg Tablet, 15 MG PO DAILY, (Reported) Metformin HCl 500 Mg Tab.er.24h, 500 MG PO BID, (Reported) Pantoprazole Sodium 40 Mg Tablet.dr, 40 MG PO DAILY, (Reported) Quetiapine Fumarate 25 Mg Tablet, 25 MG PO BID Prescribed by: GUADALUPE AUSTIN on 12/18/18857 Patient Home Medication List Home Medication List Reviewed: Yes Review of Systems Review of Systems Constitutional: see HPI EENTM: no symptoms reported Respiratory: no symptoms reported Cardiovascular: no symptoms reported Gastrointestinal: no symptoms reported Genitourinary: see HPI : No Musculoskeletal: see HPI Skin: see HPI Psychiatric/Neurological: See HPI Hematologic/Lymphatic: No Symptoms Reported Immunological/Allergic: no symptoms reported Past Gdhwmdu-Kzjxvv-Hkimwt Hx Past Med/Social Hx: Reviewed Nursing Past Med/Soc Hx Patient Social History Alcohol Use: Denies Use Recreational Drug Use: No Smoking Status: Current Everyday Smoker Type Used: Cigarettes 2nd Hand Smoke Exposure: Yes Recent Foreign Travel: No Contact w/Someone Who Travel: No Recent Infectious Disease Expo: No Recent Hopitalizations: No Physical Abuse: No Sexual Abuse: No Mistreated: No Fear: No Immunizations Up To Date Tetanus Booster (TDap): Unknown PED Vaccines UTD: No Date of Pneumonia Vaccine: Dec 18, 2018 Date of Influenza Vaccine: Nov 05, 2018 Seasonal Allergies Seasonal Allergies: No Past Medical History Surgeries: Yes (PT CANNOT RECALL) Hysterectomy, Vascular Surgery Respiratory: Yes COPD Currently Using CPAP: No Currently Using BIPAP: No Cardiac: Yes Coronary Artery Disease, High Cholesterol, Peripheral Vascular Neurological: Yes Dementia : No 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 Disorders: No INSULATION HOSEMAN History: Menopausal Genitourinary: Yes UTI-Chronic Gastrointestinal: Yes Gastroesophageal Reflux Musculoskeletal: Yes (NONDISPLACED TRANSVERSE FX OF RIGHT FIBULAR SHAFT 04/11/19) Degenerate Disk Disease, Osteoporosis Endocrine: Yes Diabetes, Non-Insulin dep HEENT: No Cataract Loss of Vision: Denies Cancer: No Psychosocial: Yes (DELUSIONAL DISORDER) Anxiety Integumentary: No Blood Disorders: No Family Medical History Arthritis G8 SISTER G8 SISTER Cataracts 19 MOTHER Diabetes mellitus G8 SISTER FH: COPD (chronic obstructive pulmonary disease) 19 MOTHER FH: CVA (cerebrovascular accident) 19 FATHER FH: heart attack 19 FATHER Glaucoma 19 MOTHER Hypercholesterolemia 19 FATHER Hypertension 19 FATHER No Pertinent Family Hx Physical Exam Vital Signs Vital Signs - First Documented 11/10/19 01:51 Temp 35.9 Pulse 89 Resp 14 B/P (MAP) 144/66 (92) Pulse Ox 98 O2 Delivery Room Air Capillary Refill : Less Than 3 Seconds Height, Weight, BMI Height: 5'5.00" Weight: 164lbs. 6.4oz. 74.342958ql; 28.00 BMI Method:Stated General Appearance: No Apparent Distress, WD/WN HEENT: PERRL/EOMI, Normal ENT Inspection, Pharynx Normal Neck: Normal Inspection Respiratory: Lungs Clear, Normal Breath Sounds, No Accessory Muscle Use Cardiovascular: Regular Rate, Rhythm, No Edema, No Murmur, Normal Peripheral Pulses Gastrointestinal: Normal Bowel Sounds, Non Tender, Soft Progress/Results/Core Measures Suspected Sepsis Recent Fever Within 48 Hours: No Infection Criteria Present: Suspected New Infection New/Unexplained Altered Menta: No Sepsis Screen: No Definite Risk SIRS Temperature: Pulse: 89 Respiratory Rate: 14 Laboratory Tests 11/10/19 02:58: White Blood Count 6.3 Blood Pressure 144 /66 Mean: 92 Laboratory Tests 11/10/19 02:58: Creatinine 2.06H, Platelet Count 130, Total Bilirubin < 0.1L Results/Orders Lab Results Laboratory Tests Test 11/10/19 02:58 11/10/19 03:03 Range/Units White Blood Count 6.3 4.3-11.0 10^3/uL Red Blood Count 3.80 L 4.35-5.85 10^6/uL Hemoglobin 11.3 L 11.5-16.0 G/DL Hematocrit 35 35-52 % Mean Corpuscular Volume 91 80-99 FL Mean Corpuscular Hemoglobin 30 25-34 PG Mean Corpuscular Hemoglobin Concent 33 32-36 G/DL Red Cell Distribution Width 17.0 H 10.0-14.5 % Platelet Count 130 130-400 10^3/uL Mean Platelet Volume 9.3 7.4-10.4 FL Neutrophils (%) (Auto) 64 42-75 % Lymphocytes (%) (Auto) 23 12-44 % Monocytes (%) (Auto) 10 0-12 % Eosinophils (%) (Auto) 3 0-10 % Basophils (%) (Auto) 0 0-10 % Neutrophils # (Auto) 4.0 1.8-7.8 X 10^3 Lymphocytes # (Auto) 1.4 1.0-4.0 X 10^3 Monocytes # (Auto) 0.6 0.0-1.0 X 10^3 Eosinophils # (Auto) 0.2 0.0-0.3 10^3/uL Basophils # (Auto) 0.0 0.0-0.1 10^3/uL Sodium Level 142 135-145 MMOL/L Potassium Level 4.5 3.6-5.0 MMOL/L Chloride Level 105 98-107 MMOL/L Carbon Dioxide Level 22 21-32 MMOL/L Anion Gap 15 H 5-14 MMOL/L Blood Urea Nitrogen 28 H 7-18 MG/DL Creatinine 2.06 H 0.60-1.30 MG/DL Estimat Glomerular Filtration Rate 24 BUN/Creatinine Ratio 14 Glucose Level 141 H 70-105 MG/DL Calcium Level 9.9 8.5-10.1 MG/DL Corrected Calcium 9.7 8.5-10.1 MG/DL Magnesium Level 2.5 H 1.6-2.4 MG/DL Total Bilirubin < 0.1 L 0.1-1.0 MG/DL Aspartate Amino Transf (AST/SGOT) 17 5-34 U/L Alanine Aminotransferase (ALT/SGPT) 17 0-55 U/L Alkaline Phosphatase 58 40-136 U/L Total Protein 7.0 6.4-8.2 GM/DL Albumin 4.2 3.2-4.5 GM/DL TSH [place] Testing 4.01 0.35-4.94 UIU/ML Urine Color YELLOW Urine Clarity TURBID Urine pH 6.5 5-9 Urine Specific [place] 1.010 L 1.016-1.022 Urine Protein NEGATIVE NEGATIVE Urine Glucose (UA) 3+ H NEGATIVE Urine Ketones NEGATIVE NEGATIVE Urine Nitrite NEGATIVE NEGATIVE Urine Bilirubin NEGATIVE NEGATIVE Urine Urobilinogen 0.2 < = 1.0 MG/DL Urine Leukocyte Esterase 3+ H NEGATIVE Urine RBC (Auto) TRACE-L NEGATIVE Urine RBC 0-2 /HPF Urine WBC 50-100 H /HPF Urine Squamous Epithelial Cells 0-2 /HPF Urine Crystals PRESENT H /LPF Urine Amorphous Sediment FEW SAMSON URATES H /LPF Urine Bacteria FEW H /HPF Urine Casts NONE /LPF Urine Mucus NEGATIVE /LPF Urine Yeast LARGE H /HPF Urine Culture Indicated YES My Orders Orders - SHARAD ARRIAGA MD Cbc With Automated Diff (11/10/19 02:18) Comprehensive Metabolic Panel (11/10/19 02:18) Magnesium (11/10/19 02:18) Thyroid Analyzer (11/10/19 02:18) Ua Culture If Indicated (11/10/19 02:18) Ct Head Wo (11/10/19 02:18) Urine Culture (11/10/19 03:03) Ns Iv 1000 Ml (Sodium Chloride 0.9%) (11/10/19 03:55) Levofloxacin 500 Mg/100 Ml Iv (Levaquin (11/10/19 04:00) Iv/Invasive Line Insertion .IV start (11/10/19 04:00) Medications Given in ED Current Medications Medications Dose Ordered Sig/Akash Route Start Time Stop Time Status Last Admin Dose Admin Levofloxacin/ Dextrose 100 ml @ 100 mls/hr ONCE ONCE IV 11/10/19 04:00 11/10/19 04:59 DC 11/10/19 04:07 100 MLS/HR Vital Signs/I&O 11/10/19 11/10/19 01:51 05:27 Temp 35.9 35.3 Pulse 89 89 Resp 14 14 B/P (MAP) 144/66 (92) 138/80 (92) Pulse Ox 98 98 O2 Delivery Room Air Room Air Capillary Refill : Less Than 3 Seconds Blood Pressure Mean: 92 Progress Note : Progress Note Creatinine was bumped above baseline. Patient was hydrated with a liter of IV fluid. UA shows persistent evidence of infection despite a recent prescription for Cefdinir. Levaquin 500 mg IV was ordered for the ER followed by a prescript ion for oral Levaquin. There was also noted that patient is on multiple sedating medications. I've advised a close medication review to try to help alleviate the burden of medication side effects. Diagnostic Imaging Diagonstic Imaging: CT Plain Films/CT/US/NM/MRI: head Comments CT head viewed by me and [employer] report reviewed. No acute abnormalities appreciated. Departure Impression Primary Impression: Urinary tract infection Qualified Codes: N39.0 - Urinary tract infection, site not specified Additional Impressions: Renal insufficiency Frequent falls Disposition: 01 HOME, SELF-CARE Condition: Improved Departure-Patient Inst. Decision time for Depature: 05:06 Referrals: RACHEL BAKER MD (PCP/Family) Primary Care Physician Patient Instructions: Urinary Tract Infection, Adult (DC) Add. Discharge Instructions: Follow-up with your primary care provider soon as possible. You are on multiple sedating medications and you should have a medication review. Despite taking Cefdinir you still have evidence of urinary tract infection. Add Levaquin until urine culture results can be reviewed with your doctor. Start the Levaquin prescription on November 10. Drink plenty of clear liquids. custodial staff should encourage drinking clear liquids throughout the day. Ambulate (walking) only with staff assistance. Return to emergency room if you have worsening of conditions or you are not improving as expected. All discharge instructions reviewed with patient and/or family. Voiced understanding. Scripts Levofloxacin (Levofloxacin) 250 Mg Tablet 250 MG PO DAILY, #4 TAB Prov: SHARAD ARRIAGA MD 11/10/19 Copy Copies To 1: RACHEL BAKER MD, JOSHUA T MD Nov 10, 2019 05:01
[2019-11-10] MEDS ORDERED: LEVO250T46 PO (05:09)
[2019-11-10 05:27] VITALS: BP 138/80
--- NOTE | 2019-11-10 06:22 | Diagnostic Imaging Report ---
PROCEDURE: CT head without contrast. TECHNIQUE: Multiple contiguous axial images were obtained through the brain without the use of intravenous contrast. Auto Exposure Controls were utilized during the CT exam to meet ALARA standards for radiation dose reduction. INDICATION: Multiple falls recently. EXAMINATION: CT brain without contrast 11/10/2019. Comparison made to 03/23/2019 FINDINGS: Multiple axial images of the brain without contrast. There is no evidence for acute hemorrhage or infarct. There is no mass, mass effect, midline shift or hydrocephalus. The paranasal sinuses and mastoid air cells demonstrate no acute abnormality. IMPRESSION: No acute intracranial process. Dictated by: Dictated on workstation # [id number]
[2019-11-10 12:13] LABS: BILIRUBIN,TOTAL 0.3 MG/DL (0.1-1.0)
== END 2019-11-10 05:27 ==
LOC: EDUNIT# 01:41 → ER 01:43
DX: N39.0 Urinary tract infection, site not specified (principal); S70.02XA Contusion of left hip, initial encounter; W19.XXXA Unspecified fall, initial encounter; Z91.81 History of falling; Y92.129 Unspecified place in nursing home as the place of occurrence of the external cause; S80.212A Abrasion, left knee, initial encounter; F17.210 Nicotine dependence, cigarettes, uncomplicated; J44.9 Chronic obstructive pulmonary disease, unspecified; I25.10 Atherosclerotic heart disease of native coronary artery without angina pectoris; E78.00 Pure hypercholesterolemia, unspecified; E11.51 Type 2 diabetes mellitus with diabetic peripheral angiopathy without gangrene; F03.90 Unspecified dementia, unspecified severity, without behavioral disturbance, psychotic disturbance, mood disturbance, and anxiety; M81.0 Age-related osteoporosis without current pathological fracture; F41.9 Anxiety disorder, unspecified; F22 Delusional disorders; N28.9 Disorder of kidney and ureter, unspecified; Z79.899 Other long term (current) drug therapy; Z79.84 Long term (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 of oral hypoglycemic drugs; Z79.82 Long term (current) use of aspirin; Z88.1 Allergy status to other antibiotic agents; Z88.7 Allergy status to serum and vaccine
CPT/HCPCS: 36415; 70450; 80053; 81000; 83735; 84443; 85025; 87088; 99283

== ENCOUNTER 2019-11-26 16:48 | Inpatient (IN) | payer MEDICARE, MEDICAID ==
[~2019-11-26] VITALS: Ht 165.1 cm; Wt 81.1 kg
[~2019-11-26 16:48] MED LIST changes: +LEVO250T46 PO
[2019-11-26] MEDS ORDERED: NS IV 500 ML 500 ML IV ONE (17:05)
[2019-11-26] MEDS ORDERED: NS IV 1000 ML 1,000 ML IV SCH (17:05)
[2019-11-26] MEDS ORDERED: LEVOFLOXACIN 750 MG/150 ML IV 150 ML IV ONE (17:15)
--- NOTE | 2019-11-26 17:18 | ED General ---
General Chief Complaint: Altered Mental Status Stated Complaint: MULTIPLE FALLS/CONFUSION Source of Information: Patient, Caregiver, Senior Living Records Exam Limitations: Other (delirium) History of Present Illness Date Seen by Provider: Nov 26, 2019 Time Seen by Provider: 16:52 Initial Comments Kimberly Amaro is a 69 year old female who was seen today due to confusion and falls. She was brought from [facility]. She reports that she has had multiple falls today, describes feeling dizzy but no other detail. She does not know if she hit her head, only pain she seemed concerned about was pain in the L axilla, but does not say whether this was due to her fall. She has a history of DM and neuropathy. She is a DNR. She denies any fevers or chills, CP, SOB, abdominal pain, constipation, diarrhea, dysuria, urinary frequ ency or retention, numbness or tingling. Allergies and Home Medications Allergies Coded Allergies: Tetanus Vaccines and Toxoid (Unverified Allergy, Severe, 12/17/11) SWOLLEN HOT RED ARM ampicillin (Unverified Allergy, Unknown, 12/20/15) Home Medications Alendronate Sodium 70 Mg Tablet, 70 MG PO Gaines, (Reported) Alprazolam 0.5 Mg Tablet, 0.5 MG PO DAILY Prescribed by: GUADALUPE AUSTIN on 12/18/18 08 Alprazolam 0.5 Mg Tablet, 1 MG PO HS TAKES 2 (0.5MG) TABLETS Prescribed by: GUADALUPE AUSTIN on 12/18/18 0858 Amlodipine Besylate 5 Mg Tablet, 5 MG PO 1800, (Reported) Aspirin 81 Mg Tablet.dr, 81 MG PO DAILY, (Reported) Bupropion HCl 300 Mg Tab.er.24h, 300 MG PO DAILY, (Reported) Calcium Carb & Citrate/Vit D3 1 Each Tablet.er, 1 TAB PO DAILY, (Reported) Gabapentin 600 Mg Tablet, 1,200 MG PO TID, (Reported) TAKES 2 (600MG) TABLETS Gemfibrozil 600 Mg Tablet, 600 MG PO BID, (Reported) Glimepiride 4 Mg Tablet, 4 MG PO BID, (Reported) Hydrocodone Bit/Acetaminophen 1 Tab Tab, 1 EACH PO TID PRN for PAIN-MODERATE Prescribed by: JESSICA BERNSTEIN on 04/11/192139 Ibuprofen 200 Mg Tablet, 800 MG PO TID PRN for PAIN-MILD, (Reported) TAKES 4 (200MG) TABLETS Insulin Aspart 100 Unit/1 Ml Susp, 0 UNIT SC ACHS Prescribed by: GUADALUPE AUSTIN on 12/18/18857 Insulin Determir 1,000 Units/10 Ml Soln, 15 UNIT SQ BID Prescribed by: GUADALUPE UASTIN on 12/18/18857 Levofloxacin 250 Mg Tablet, 250 MG PO DAILY Prescribed by: SHARAD HACKETT on 11/10/19 0509 Linagliptin 5 Mg Tablet, 5 MG PO DAILY, (Reported) Meclizine HCl 25 Mg Tablet, 12.5 MG PO Q12HR PRN for Dizziness Prescribed by: GUADALUPE AUSTIN on 12/18/18857 Meloxicam 15 Mg Tablet, 15 MG PO DAILY, (Reported) Metformin HCl 500 Mg Tab.er.24h, 500 MG PO BID, (Reported) Pantoprazole Sodium 40 Mg Tablet.dr, 40 MG PO DAILY, (Reported) Quetiapine Fumarate 25 Mg Tablet, 25 MG PO BID Prescribed by: GUADALUPE AUSTIN on 12/18/18857 Patient Home Medication List Home Medication List Reviewed: Yes Review of Systems Review of Systems Constitutional: No chills, No fever, No malaise EENTM: No hearing loss, No ear pain Respiratory: No cough, No short of breath Cardiovascular: No chest pain, No edema Gastrointestinal: No abdominal pain, No nausea, No vomiting Genitourinary: No dysuria, No frequency Musculoskeletal: No back pain, No joint pain All Other Systems Reviewed Negative Unless Noted: Yes Past Jsnupaw-Xfkrop-Ppmbio Hx Patient Social History Alcohol Use: Denies Use Recreational Drug Use: No Smoking Status: Current Everyday Smoker Type Used: Cigarettes 2nd Hand Smoke Exposure: Yes Recent Foreign Travel: No Contact w/Someone Who Travel: No Recent Hopitalizations: No Immunizations Up To Date Tetanus Booster (TDap): Unknown PED Vaccines UTD: No Date of Pneumonia Vaccine: Dec 18, 2018 Date of Influenza Vaccine: Nov 05, 2018 Seasonal Allergies Seasonal Allergies: No Past Medical History Surgeries: Yes (PT CANNOT RECALL) Hysterectomy, Vascular Surgery Respiratory: Yes COPD Currently Using CPAP: No Currently Using BIPAP: No Cardiac: Yes Coronary Artery Disease, High Cholesterol, Peripheral Vascular Neurological: Yes Dementia 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 Genitourinary: Yes UTI-Chronic Gastrointestinal: Yes Gastroesophageal Reflux Musculoskeletal: Yes (NONDISPLACED TRANSVERSE FX OF RIGHT FIBULAR SHAFT 04/11/19) Degenerate Disk Disease, Osteoporosis Endocrine: Yes Diabetes, Non-Insulin dep HEENT: No Cataract Loss of Vision: Denies Cancer: No Psychosocial: Yes (DELUSIONAL DISORDER) Anxiety Integumentary: No Blood Disorders: No Family Medical History Arthritis G8 SISTER G8 SISTER Cataracts 19 MOTHER Diabetes mellitus G8 SISTER FH: COPD (chronic obstructive pulmonary disease) 19 MOTHER FH: CVA (cerebrovascular accident) 19 FATHER FH: heart attack 19 FATHER Glaucoma 19 MOTHER Hypercholesterolemia 19 FATHER Hypertension 19 FATHER No Pertinent Family Hx Physical Exam-Suspected Sepsis Physical Exam Vital Signs Vital Signs - First Documented 11/26/19 17:12 Temp 36.8 Pulse 116 Resp 20 B/P (MAP) 198/90 (126) Pulse Ox 96 Capillary Refill : Height, Weight, BMI Height: 5'5.00" Weight: 164lbs. 6.4oz. 74.369826xy; 28.00 BMI Method:Stated General Appearance: WD/WN, Obese Eyes: Bilateral Eye Normal Inspection, Bilateral Eye PERRL, Bilateral Eye EOMI HEENT: PERRL/EOMI, TMs Normal, Normal ENT Inspection, Pharynx Normal, Moist Mucous Membranes, Other (atraumatic head without Neff sign and raccoon eyes or hemotympanum) Neck: Full Range of Motion, Normal Inspection Respiratory: Chest Non Tender, Lungs Clear, Normal Breath Sounds, No Accessory Muscle Use, No Respiratory Distress Cardiovascular: Regular Rate, Rhythm, No Edema, Normal Peripheral Pulses Gastrointestinal: Normal Bowel Sounds, No Organomegaly, Non Tender, Soft Back: Normal Inspection, No Vertebral Tenderness Extremity: Normal Capillary Refill, Normal Inspection, Normal Range of Motion, Non Tender, No Pedal Edema Neurologic/Psychiatric: Alert, No Motor/Sensory Deficits, Normal 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, 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 as Tested, Other (oriented to person and place but not time nor self, confused about situation) Skin: normal color, warm/dry Focused Exam Sepsis Stage: Sepsis Possible Source: Genitouriary Lactate Level 11/26/19 17:05: Lactic Acid Level 1.18 Time of Focused Exam: 18:53 Respiratory: Lungs Clear, Normal Breath Sounds, No Accessory Muscle Use, No Respiratory Distress Cardiovascular: Regular Rate, Rhythm, No Edema, Normal Peripheral Pulses Capillary Refill: Less Than 3 Seconds Peripheral Pulses: 2+ Dorsalis Pedis (R), 2+ Left Dors-Pedis (L), 2+ Radial Pulses (R), 2+ Radial Pulses (L) Skin: normal color, warm/dry Lactic Acid Level Laboratory Tests Test 11/26/19 17:05 Lactic Acid Level 1.18 MMOL/L (0.50-2.00) Within 3hrs of presentation: Admin fluids (20 mL/kg), Admin ABX, Blood cultures prior to ABX's, Focus exam, Lactate level Progress/Results/Core Measures Suspected Sepsis SIRS Temperature: Pulse: Respiratory Rate: Laboratory Tests 11/26/19 17:05: White Blood Count 6.3 Blood Pressure / Mean: 11/26/19 17:05: Lactic Acid Level 1.18 Laboratory Tests 11/26/19 17:05: Creatinine 1.25, INR Comment 1.0, Platelet Count 203, Total Bilirubin 0.6 Results/Orders Lab Results Laboratory Tests Test 11/26/19 17:05 11/26/19 17:30 Range/Units White Blood Count 6.3 4.3-11.0 10^3/uL Red Blood Count 4.31 L 4.35-5.85 10^6/uL Hemoglobin 12.9 11.5-16.0 G/DL Hematocrit 38 35-52 % Mean Corpuscular Volume 88 80-99 FL Mean Corpuscular Hemoglobin 30 25-34 PG Mean Corpuscular Hemoglobin Concent 34 32-36 G/DL Red Cell Distribution Width 16.4 H 10.0-14.5 % Platelet Count 203 130-400 10^3/uL Mean Platelet Volume 8.9 7.4-10.4 FL Neutrophils (%) (Auto) 67 42-75 % Lymphocytes (%) (Auto) 21 12-44 % Monocytes (%) (Auto) 10 0-12 % Eosinophils (%) (Auto) 2 0-10 % Basophils (%) (Auto) 0 0-10 % Neutrophils # (Auto) 4.3 1.8-7.8 X 10^3 Lymphocytes # (Auto) 1.3 1.0-4.0 X 10^3 Monocytes # (Auto) 0.7 0.0-1.0 X 10^3 Eosinophils # (Auto) 0.1 0.0-0.3 10^3/uL Basophils # (Auto) 0.0 0.0-0.1 10^3/uL Prothrombin Time 13.8 12.2-14.7 SEC INR Comment 1.0 0.8-1.4 Activated Partial Thromboplast Time 34 24-35 SEC Sodium Level 141 135-145 MMOL/L Potassium Level 3.7 3.6-5.0 MMOL/L Chloride Level 108 H 98-107 MMOL/L Carbon Dioxide Level 19 L 21-32 MMOL/L Anion Gap 14 5-14 MMOL/L Blood Urea Nitrogen 18 7-18 MG/DL Creatinine 1.25 0.60-1.30 MG/DL Estimat Glomerular Filtration Rate 42 BUN/Creatinine Ratio 14 Glucose Level 183 H 70-105 MG/DL Lactic Acid Level 1.18 0.50-2.00 MMOL/L Calcium Level 9.4 8.5-10.1 MG/DL Corrected Calcium 9.2 8.5-10.1 MG/DL Total Bilirubin 0.6 0.1-1.0 MG/DL Aspartate Amino Transf (AST/SGOT) 24 5-34 U/L Alanine Aminotransferase (ALT/SGPT) 35 0-55 U/L Alkaline Phosphatase 59 40-136 U/L Total Protein 7.3 6.4-8.2 GM/DL Albumin 4.2 3.2-4.5 GM/DL Urine Color YELLOW Urine Clarity CLEAR Urine pH 6.0 5-9 Urine Specific [place] >=1.030 1.016-1.022 Urine Protein TRACE H NEGATIVE Urine Glucose (UA) NEGATIVE NEGATIVE Urine Ketones NEGATIVE NEGATIVE Urine Nitrite NEGATIVE NEGATIVE Urine Bilirubin NEGATIVE NEGATIVE Urine Urobilinogen 0.2 < = 1.0 MG/DL Urine Leukocyte Esterase 1+ H NEGATIVE Urine RBC (Auto) NEGATIVE NEGATIVE Urine RBC NONE /HPF Urine WBC 10-25 H /HPF Urine Squamous Epithelial Cells NONE /HPF Urine Crystals NONE /LPF Urine Bacteria NEGATIVE /HPF Urine Casts NONE /LPF Urine Mucus NEGATIVE /LPF Urine Yeast LARGE H /HPF Urine Culture Indicated YES My Orders Orders - KATHI LIRA Cbc With Automated Diff (11/26/19 17:05) Comprehensive Metabolic Panel (11/26/19 17:05) Blood Culture (11/26/19 17:05) Sputum Culture (11/26/19 17:05) Urinalysis (11/26/19 17:05) Urine Culture (11/26/19 17:05) Protime With Inr (11/26/19 17:05) Partial Thromboplastin Time (11/26/19 17:05) Chest 1 View, Ap/Pa Only (11/26/19 17:05) Ed Iv/Invasive Line Start (11/26/19 17:05) Ed Iv/Invasive Line Start (11/26/19 17:05) Vital Signs Adult Sepsis Patie Q15M (11/26/19 17:05) O2 (11/26/19 17:05) Remove Rings In Anticipation O (11/26/19 17:05) Lactic Acid Analyzer (11/26/19 17:05) Ns Iv 1000 Ml (Sodium Chloride 0.9%) (11/26/19 17:05) Vancomycin Injection (Vancomycin Injecti (11/26/19 17:15) Levofloxacin 750 Mg/150 Ml Iv (Levaquin (11/26/19 17:15) Ed Iv/Invasive Line Start (11/26/19 17:05) Ns Iv 500 Ml (Sodium Chloride 0.9%) (11/26/19 17:05) Ct Head/Cervical Spine Wo (11/26/19 17:05) Medications Given in ED Current Medications Medications Dose Ordered Sig/Akash Route Start Time Stop Time Status Last Admin Dose Admin Levofloxacin/ Dextrose 150 ml @ 100 mls/hr ONCE ONCE IV 11/26/19 17:15 11/26/19 18:44 DC 11/26/19 18:25 100 MLS/HR Sodium Chloride 500 ml @ 0 mls/hr Q0M ONCE IV 11/26/19 17:05 11/26/19 17:09 DC 11/26/19 18:25 0 MLS/HR Vital Signs/I&O 11/26/19 17:12 Temp 36.8 Pulse 116 Resp 20 B/P (MAP) 198/90 (126) Pulse Ox 96 Capillary Refill : Progress Note : Time: 17:15 Progress Note Delirium, falls and sepsis. Plan to give her 1500 cc which is about 20 mL/kg and cover her with Levophed and vancomycin. She has stated allergy to ampicillin. Patient does not give much useful history. From the malodor I would suspect a UTI. She is breathing fast which could be as a result of metabolic acidosis from her underlying condition. She is not hypoxic nor she having a cough reported by staff. Lungs sound clear. She is tender in her lower abdomen. If her urinalysis is clear then we may get a CT of her belly. Plan to do a septic workup and CT of her head and C-spine. Review her medications or iatrogenic causes. She will likely need hospitalization. I attest that I saw this patient alongside the medical student and agree with hi s documented history, physical exam and review of systems except as otherwise noted. Diagnostic Imaging Diagonstic Imaging: Xray Plain Films/CT/US/NM/MRI: chest Comments NAME: KIMBERLY HYMAN [facility] REC#: [id number] PT STATUS: REG ER : 1950 PHYSICIAN: KATHI LIRA MD ADMIT DATE: 11/26/19/ER Signed Date of Exam:11/26/19 CHEST 1 VIEW, AP/PA ONLY PATIENT HISTORY: Sepsis. TECHNIQUE: Single frontal view of the chest. COMPARISON: 03/23/2019. FINDINGS: The lung volumes are normal. No focal consolidation is seen. No large pleural effusion or pneumothorax is seen. The cardiomediastinal silhouette is normal in size and contour. No acute osseous abnormality is seen. IMPRESSION: No acute pulmonary abnormality seen. Dictated by: Dictated on workstation # [id number] Dict: 11/26/191831 Trans: 11/26/191841 PJE [id number] Interpreted by: MARA FISHER MD Electronically signed by: MARA FISHER MD 11/26/191841 Reviewed: Reviewed by Me Diagonstic Imaging: CT (noncontrast) Plain Films/CT/US/NM/MRI: c-spine, head Reviewed: Reviewed by Me Departure Communication (Admissions) Time/Spoke to Admitting Phy: 18:15 Discussed the case with Dr. Cee and he agrees to admit to the floor with Rocephin and fluids. Impression Primary Impression: UTI (urinary tract infection) Qualified Codes: N30.00 - Acute cystitis without hematuria Additional Impressions: Sepsis Qualified Codes: A41.9 - Sepsis, unspecified organism; R65.20 - Severe sepsis without septic shock; G93.40 - Encephalopathy, unspecified Delirium Falls frequently Disposition: ADMITTED INPATIENT Condition: Stable Admissions Decision to Admit Reason: Admit from ER (General) Decision to Admit/Date: Nov 26, 2019 Time/Decision to Admit Time: 17:30 Departure-Patient Inst. Referrals: RACHEL BAKER MD (PCP/Family) Primary Care Physician KATHI LIRA Nov 26, 2019 17:18
[2019-11-26 17:19] LABS: BASOPHILS % (AUTO) 0 % (0-10); EOSINOPHILS # (AUTO) 0.1 10^3/uL (0.0-0.3); EOSINOPHILS % (AUTO) 2 % (0-10); HEMATOCRIT 38 % (35-52); HEMOGLOBIN 12.9 G/DL (11.5-16.0); LYMPHOCYTES # (AUTO) 1.3 X 10^3 (1.0-4.0); LYMPHOCYTES % (AUTO) 21 % (12-44); MEAN CORPUSCULAR HEMOGLOBIN 30 PG (25-34); MEAN CORPUSCULAR HGB CONC 34 G/DL (32-36); MEAN CORPUSCULAR VOLUME 88 FL (80-99); MEAN PLATELET VOLUME 8.9 FL (7.4-10.4); MONOCYTES # (AUTO) 0.7 X 10^3 (0.0-1.0); MONOCYTES % (AUTO) 10 % (0-12); NEUTROPHILS # (AUTO) 4.3 X 10^3 (1.8-7.8); NEUTROPHILS % (AUTO) 67 % (42-75); PLATELET COUNT 203 10^3/uL (130-400); RED CELL DISTRIBUTION WIDTH 16.4 % (10.0-14.5); WHITE BLOOD COUNT 6.3 10^3/uL (4.3-11.0)
--- NOTE | 2019-11-26 17:27 | ED General ---
General Chief Complaint: Altered Mental Status Stated Complaint: MULTIPLE FALLS/CONFUSION Source of Information: Patient, Caregiver Exam Limitations: Other (confusion, caregiver was not with her during the day) (LISA ALMARAZ MED STUDENT) History of Present Illness Date Seen by Provider: Nov 26, 2019 Time Seen by Provider: 17:00 Initial Comments Latonia Amaro is a 69 year old female who was seen today due to confusion and falls. She was brought from [facility]. She reports that she has had multiple falls today, describes feeling dizzy but no other detail. She does not know if she hit her head, only pain she seemed concerned about was pain in the L axilla, but does not say whether this was due to her fall. She has a history of DM and neuropathy. She is a DNR. She denies any fevers or chills, CP, SOB, abdominal pain, constipation, diarrhea, dysuria, urinary frequency or retention, numbness or tingling. (LISA ALMARAZ MED STUDENT) Allergies and Home Medications Allergies Coded Allergies: Tetanus Vaccines and Toxoid (Unverified Allergy, Severe, 12/17/11) SWOLLEN HOT RED ARM ampicillin (Unverified Allergy, Unknown, 12/20/15) Home Medications Acetaminophen 325 Mg Capsule, 650 MG PO Q6H PRN for PAIN-MILD (1-4), (Reported) Alprazolam 0.5 Mg Tablet, 0.5 MG PO DAILY, (Reported) Alprazolam 1 Mg Tablet, 1 MG PO HS, (Reported) Amlodipine Besylate 5 Mg Tablet, 2.5 MG PO DAILY, (Reported) TAKES OF A 5MG TAB HOLD IF SYSTOLIC IS <100 OR IF DIASTOLIC <60. CALL PHYSICIAN IF BP IS >180/100 Aspirin 81 Mg Tab.chew, 81 MG PO DAILY, (Reported) Bismuth Subsalicylate 262 Mg Tablet, 524 MG PO Q8H PRN for UPSET STOMACH, (Reported) Bupropion HCl 300 Mg Tab.er.24h, 300 MG PO DAILY, (Reported) Cefdinir 300 Mg Capsule, 300 MG PO BID Prescribed by: SILVINO STATON on 11/27/19 1227 Cholecalciferol (Vitamin D3) 125 Mcg Capsule, 125 MCG PO DAILY, (Reported) Cyanocobalamin 1,000 Mcg/Ml Inj, 1,000 MCG IM MONTHLY, (Reported) Ferrous Sulfate 325 Mg Tablet, 325 MG PO DAILY, (Reported) Fluconazole 200 Mg Tablet, 200 MG PO DAILY Prescribed by: SILVINO STATON on 11/27/19 1227 Glimepiride 4 Mg Tablet, 4 MG PO DAILY, (Reported) Hydrocodone/Acetaminophen 1 Each Tablet, 1 EA PO Q8H PRN for PAIN-MODERATE (5- 7), (Reported) Insulin Aspart 300 Units/3 Ml Solution, UNITS SC TIDAC, (Reported) SLIDING SCALE: BS 60-150=0 UNITS 151-200=4 UNITS 201-250=6 UNITS 251-300=8 UNITS 301-350=10 UNITS 351-400=12 UNITS- IF 12 UNITS ARE GIVEN CALL PHYSICAN Insulin Degludec 100 Unit/1 Ml Insuln.pen, 50 UNITS SC DAILY, (Reported) Linagliptin 5 Mg Tablet, 5 MG PO DAILY, (Reported) Liraglutide 0.6 Mg/0.1 Ml Pen.injctr, 1.8 MG SC DAILY, (Reported) Meclizine HCl 25 Mg Tablet, 25 MG PO Q12H PRN for DIZZINESS, (Reported) Pantoprazole Sodium 40 Mg Tablet.dr, 40 MG PO DAILY, (Reported) Pregabalin 75 Mg Capsule, 75 MG PO BID, (Reported) Quetiapine Fumarate 25 Mg Tablet, 25 MG PO BID, (Reported) Review of Systems Review of Systems Constitutional: No chills; dizziness; No fever EENTM: No vision loss, No nose congestion, No throat pain Respiratory: No cough, No short of breath Cardiovascular: No chest pain Gastrointestinal: No abdominal pain, No constipation, No diarrhea Genitourinary: No dysuria, No frequency, No hesitancy Musculoskeletal: back pain (attributes to bruising from prior falls), joint pain (L arm) Psychiatric/Neurological: Denies Headache, Denies Numbness, Denies Paresthesia (LISA ALMARAZ STUDENT) Past Ebxysha-Anflqn-Xuraqn Hx Patient Social History Type Used: Cigarettes 2nd Hand Smoke Exposure: Yes Recent Foreign Travel: No Contact w/Someone Who Travel: No Recent Hopitalizations: No (LISA ALMARAZ STUDENT) Immunizations Up To Date Tetanus Booster (TDap): Unknown PED Vaccines UTD: No Date of Pneumonia Vaccine: Dec 18, 2018 Date of Influenza Vaccine: Nov 05, 2018 (LISA ALMARAZ STUDENT) Seasonal Allergies Seasonal Allergies: No (LISA ALMARAZ STUDENT) Past Medical History Surgeries: Yes (PT CANNOT RECALL) Hysterectomy, Vascular Surgery Respiratory: Yes COPD Currently Using CPAP: No Currently Using BIPAP: No Cardiac: Yes Coronary Artery Disease, High Cholesterol, Peripheral Vascular Neurological: Yes Dementia 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 Genitourinary: Yes UTI-Chronic Gastrointestinal: Yes Gastroesophageal Reflux Musculoskeletal: Yes (NONDISPLACED TRANSVERSE FX OF RIGHT FIBULAR SHAFT 04/11/19) Degenerate Disk Disease, Osteoporosis Endocrine: Yes Diabetes, Non-Insulin dep HEENT: No Cataract Loss of Vision: Denies Cancer: No Psychosocial: Yes (DELUSIONAL DISORDER) Anxiety Integumentary: No Blood Disorders: No (LISA ALMARAZ STUDENT) Family Medical History Arthritis G8 SISTER G8 SISTER Cataracts 19 MOTHER Diabetes mellitus G8 SISTER FH: COPD (chronic obstructive pulmonary disease) 19 MOTHER FH: CVA (cerebrovascular accident) 19 FATHER FH: heart attack 19 FATHER Glaucoma 19 MOTHER Hypercholesterolemia 19 FATHER Hypertension 19 FATHER No Pertinent Family Hx (LISA ALMARAZ STUDENT) Physical Exam Vital Signs Capillary Refill : (LISA ALMARAZ STUDENT) Height, Weight, BMI Height: 5'5.00" Weight: 164lbs. 6.4oz. 74.731264co; 28.00 BMI Method:Stated General Appearance: Chronically ill, Obese HEENT: No PERRL/EOMI (would not look to left visual field, may have been due to distraction); TMs Normal Neck: Normal Inspection, Non Tender, Supple Respiratory: Lungs Clear, Normal Breath Sounds, No Accessory Muscle Use, No Respiratory Distress Cardiovascular: Regular Rate, Rhythm, No Gallop, No JVD, No Murmur, Normal Peripheral Pulses Gastrointestinal: Normal Bowel Sounds, No Organomegaly, Soft, Tenderness (RLQ and hypogastric area) Extremity: Normal Capillary Refill, Non Tender, No Calf Tenderness, Pedal Edema (2+) Neurologic/Psychiatric: Alert, No Motor/Sensory Deficits, Disoriented Skin: Normal Color, Warm/Dry (LISA ALMARAZ STUDENT) Progress/Results/Core Measures Suspected Sepsis SIRS Temperature: Pulse: Respiratory Rate: Laboratory Tests 11/26/19 17:05: Blood Pressure / Mean: 11/26/19 17:05: Laboratory Tests 11/26/19 17:05: (LISA ALMARAZ STUDENT) Results/Orders Vital Signs/I&O Capillary Refill : (LISA ALMARAZ STUDENT) Progress Note : Progress Note History suggestive of delirium and falls with underlying cause of UTI. She is currently taking several medications that may contribute to or cause delirium and falls as well, including alprazolam, pregabalin, quetiapine, bupropion, hydrocodone, amlodipine, and diabetes medications: novolog, glimeperide, tradjenta, tresiba, victoza. (LISA ALMARAZ STUDENT) Departure Departure-Patient Inst. Referrals: RACHEL BAKER MD (PCP/Family) Primary Care Physician Scripts Fluconazole (Diflucan) 200 Mg Tablet 200 MG PO DAILY for 7 Days, #7 TAB Prov: SILVINO STATON MD 11/27/19 Cefdinir (Cefdinir) 300 Mg Capsule 300 MG PO BID for 4 Days, #8 CAP Prov: SILVINO STATON MD 11/27/19 LISA ALMARAZ MED STUDENT Nov 26, 2019 17:26 PARVIZ RAYGOZA Dec 07, 2019 14:09
[2019-11-26 17:32] LABS: PROTHROMBIN TIME PATIENT 13.8 SEC (12.2-14.7)
[2019-11-26 17:33] LABS: ALBUMIN 4.2 GM/DL (3.2-4.5); BILIRUBIN,TOTAL 0.6 MG/DL (0.1-1.0); CALCIUM 9.4 MG/DL (8.5-10.1); CREATININE SERUM 1.25 MG/DL (0.60-1.30); POTASSIUM 3.7 MMOL/L (3.6-5.0); TOTAL PROTEIN 7.3 GM/DL (6.4-8.2)
[2019-11-26 17:42] LABS: BILIRUBIN,URINE NEGATIVE (NEGATIVE); CLARITY,URINE CLEAR; COLOR,URINE YELLOW; GLUCOSE, URINE (UA) NEGATIVE (NEGATIVE); KETONES,URINE NEGATIVE (NEGATIVE); LEUKOCYTE ESTERASE ,URINE 1+ (NEGATIVE); NITRITE,URINE NEGATIVE (NEGATIVE); PROTEIN,URINE TRACE (NEGATIVE)
[2019-11-26 17:58] LABS: BACTERIA,URINE NEGATIVE /HPF
[2019-11-26 17:59] LABS: YEAST,URINE LARGE /HPF
--- NOTE | 2019-11-26 18:38 | Diagnostic Imaging Report ---
PATIENT HISTORY: Sepsis. TECHNIQUE: Single frontal view of the chest. COMPARISON: 03/23/2019. FINDINGS: The lung volumes are normal. No focal consolidation is seen. No large pleural effusion or pneumothorax is seen. The cardiomediastinal silhouette is normal in size and contour. No acute osseous abnormality is seen. IMPRESSION: No acute pulmonary abnormality seen. Dictated by: Dictated on workstation # [id number]
--- NOTE | 2019-11-26 19:02 | Diagnostic Imaging Report ---
PROCEDURE: CT head and CT cervical spine without contrast. TECHNIQUE: Multiple contiguous axial images were obtained through the brain and cervical spine without the use of intravenous contrast. Sagittal and coronal reformations through the cervical spine were then performed. Auto Exposure Controls were utilized during the CT exam to meet ALARA standards for radiation dose reduction. INDICATION: Trauma, increasing falls, confusion and altered mental status for one month. Unwitnessed falls. Head and neck injury. COMPARISON: 11/10/2019. FINDINGS: CT head: The ventricles and cortical sulci are mildly prominent, likely from generalized parenchymal volume loss. No acute intracranial hemorrhage is seen. There is no CT evidence of acute territorial ischemia. The calvarium appears intact. Visualized paranasal sinuses are clear. Positioning in the scanner is suboptimal. CT cervical spine: Alignment of the cervical spine appears normal. There are mild degenerative changes at C5-C6. There is moderate multilevel facet arthropathy throughout the cervical spine. No acute fracture is seen. No acute osseous abnormality is seen in the surrounding soft tissues. IMPRESSION: 1. No acute intracranial hemorrhage or CT evidence of acute territorial ischemia. 2. No cervical spine fracture. Dictated by: Dictated on workstation # [id number]
[2019-11-26] MEDS ORDERED: NS (IVPB) 0 ML ONE (19:28)
[2019-11-26] MEDS ORDERED: VANCOMYCIN 750 MG/VIAL IV ONE ×3 (19:28→23:48)
[2019-11-26] MEDS ORDERED: NS (IVPB) 250 ML ONE ×2 (19:29→23:48)
[2019-11-26] MEDS ORDERED: VANCOMYCIN 1500 MG/NS 500 ML IVPB IV NR ×2 (19:30)
--- NOTE | 2019-11-26 19:50 | NUR ---
KIMBERLY HYMAN Yoav admitted to room 419-1, with an admitting diagnosis of UTI AND SEPSIS, on 11/26/19 from ED via BED, accompanied by ED STAFF.KIMBERLY HYMAN introduced to surroundings, call light, bed controls, phone, TV, temperature control, lights, meal times, smoking policy, visitor policy, side rail policy, bathrooms and showers. Patient Rights given to patient in the handbook. KIMBERLY HYMAN verbalizes understanding that [facility] is not responsible for the loss or damage to any personal effects or valuables that are kept in the patients posession during their hospitalization. Patient and/or family were informed about the Rapid Response Team and its purpose.
--- OUTSIDE RECORDS SUMMARY | 2019-11-26 19:59 | XMS REPORT | Continuity of Care Document ---
Author Organization Unknown Address Unknown Phone Unavailable Allergies Active Description Code Type Severity Reaction Onset Reported/Identified Relationship to Patient Clinical Status Yes AMOXICILLIN MODERATE MODERATE Yes HYDROCODONE-ACETAMINOPHEN MODERATE MODERATE Yes LISINOPRIL UNKNOWN UNKNOWN Yes TETANUS IMMUNE GLOBULIN (PF) UNKNOWN UNKNOWN Yes ZOCOR MODERATE MODERATE Yes Tetanus Vaccines Toxoid [id number] Drug Allergy Severe N/A 12/17/2011 Yes Tetanus Vaccines and Toxoid [id number] Drug Allergy Severe N/A 12/17/2011 Yes ampicillin [id number] Drug Allerg y Unknown N/A 12/20/2015 Medications [...] EDD DENIS Ot 786.50 09/18/2014 BJ ECHEVERRIA 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 Ot 789.00 2014 EDD DENIS Ot 786.50 [...] 786.50 CHEST PAIN NOS 12/20/2015 BJ ECHEVERRIA 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 Ot 789.00 ABDOMINAL PAIN, UNSPECIFIED SITE 12/20/2015 [...] Ot F41 .9 ANXIETY DISORDER, UNSPECIFIED 12/21/2015 SHERRLIL TIWARI MD Ot I10 ESSENTIAL (PRIMARY) HYPERTENSION [...] TREATMENT NOT CARRIED OUT 12/04/2016 BJ ECHEVERRIA 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 Ot M79.605 PAIN IN LEFT LEG 12/10/2016 JACKI BOBNYA Rouse 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 Ot M79.604 PAIN IN RIGHT LEG 12/10/2016 BJ ECHEVERRIA 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 Ot M79.605 PAIN IN LEFT LEG 12/26/2016 BJ ECHEVERRIA 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 Ot M79.604 PAIN IN RIGHT LEG 12/26/2016 BJ ECHEVERRIA 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 Ot M79.605 PAIN IN LEFT LEG 01/04/2017 Ot 719.46 CINTHIA NT PAIN-L/LEG 01/04/2017 Ot 785.9 CARD IOVAS SYS SYMP NEC 01/04/2017 Ot 790.1 ELEV ATED SEDIMENT RATE 01/04/2017 Ot 789.01 ABD OMINAL PAIN, RIGHT UPPER QUADRANT 01/04/2017 Ot V72.84 EXA M PRE- OPERATIVE NOS 01/04/2017 OLIVIA MALLORY, RACHEL Paula Ot 789.01 ABDOMINAL PAIN, RIGHT UPPER QUADRANT 01/04/2017 EDD DENIS CHIEF OPERATIONS OFFICER Ot 786.50 CHEST PAIN NOS 01/04/2017 BJ [...] NOT CARRIED OUT 01/04/2017 JACKI BJ Rouse 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 Ot M79.604 PAIN IN RIGHT LEG 01/04/2017 BJ ECHEVERRIA 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 Ot M79.605 PAIN IN LEFT LEG 01/04/2017 [...] OSTEOARTHRITIS, UNSPECIFIED 01/04/2017 ODIN AGUIRRE Ot Z79.82 CEREAL CHEMIST (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 OF ASPIRIN 01/04/2017 ODIN AGUIRRE Ot Z79.84 LONG-TERM (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 OF ORAL HYPOGLYC 01/04/2017 ODIN AUGIRRE Ot Z82.49 FAMILY HX OF ISCHEM HEART [...] OSTEOARTHRITIS, UNSPECIFIED 01/08/2017 ODIN AGUIRRE Ot Z79.82 CEREAL CHEMIST (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 OF ASPIRIN 01/08/2017 ODIN AGUIRRE Ot Z79.84 CEREAL CHEMIST (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 OF ORAL HYPOGLYC 01/08/2017 ODIN [...] NICHARITY Ot I25.10 ATHSCL HEART DISEASE OF [place] CORONARY 02/08/2017 NI, MUKUNDHALLE Nasim Ot I65.22 OCCLUSION AND STENOSIS OF LEFT CAROTID A 02/08/2017 NI, CHARITY Rouse Ot J44.9 CHRONIC OBSTRUCTIVE PULMONARY DISEASE, U 02/08/2017 NI, MUKUNDHALLE Nasim Ot K21.9 GASTRO-ESOPHAGEAL REFLUX DISEASE WITHOUT 02/08/2017 CHARITY DAN Ot M81.0 AGE- RELATED OSTEOPOROSIS W/O CURRENT PAT 02/08/2017 CHARITY DAN Ot Z79.899 OTHER CEREAL CHEMIST (CURRENT) DRUG THERAPY 02/08/2017 CHARITY DAN N [...] DAN Ot I25.10 ATHSCL HEART DISEASE OF [place] CORONARY 02/26/2017 CHARITY DAN Ot I65.22 OCCLUSION AND STENOSIS OF LEFT CAROTID A 02/26/2017 CHARITY DAN Ot J44.9 CHRONIC OBSTRUCTIVE PULMONARY DISEASE, U 02/26/2017 CHARITY DAN Ot K21.9 GASTRO-ESOPHAGEAL REFLUX DISEASE WITHOUT 02/26/2017 CHARITY DAN Ot M81.0 AGE- RELATED OSTEOPOROSIS W/O CURRENT PAT 02/26/2017 CHARITY DAN Ot Z79.899 OTHER CEREAL CHEMIST (CURRENT) DRUG THERAPY 02/26/2017 CHARITY DAN Ot [...] DAN Ot I25.10 ATHSCL HEART DISEASE OF [place] CORONARY 05/08/2017 CHARITY DAN Ot I65.22 OCCLUSION AND STENOSIS OF LEFT CAROTID A 05/08/2017 CHARITY DAN Ot J44.9 CHRONIC OBSTRUCTIVE PULMONARY DISEASE, U 05/08/2017 CHARITY DAN Ot K21.9 GASTRO-ESOPHAGEAL REFLUX DISEASE WITHOUT 05/08/2017 CHARITY DAN Ot M81.0 AGE- RELATED OSTEOPOROSIS W/O CURRENT PAT 05/08/2017 CHARITY DAN Ot Z79.899 OTHER LONG-TERM (CURRENT) DRUG THERAPY 05/08/2017 CHARITY DAN Ot [...] Nasim Ot I25.10 ATHSCL HEART DISEASE OF [place] CORONARY 05/09/2017 CHARITY DAN Nasim Ot I65.22 OCCLUSION AND STENOSIS OF LEFT CAROTID A 05/09/2017 CHARITY DAN Nasim Ot J44.9 CHRONIC OBSTRUCTIVE PULMONARY DISEASE, U 05/09/2017 CHARITY DAN Nasim Ot K21.9 GASTRO-ESOPHAGEAL REFLUX DISEASE WITHOUT 05/09/2017 CHARITY DAN Nasim Ot M81.0 AGE- RELATED OSTEOPOROSIS W/O CURRENT PAT 05/09/2017 CHARITY DAN Nasim Ot Z79.899 OTHER LONG-TERM (CURRENT) DRUG THERAPY 05/09/2017 CHARITY DAN Nasim Ot Z90.710 ACQUIRED ABSENCE OF BOTH CERVIX AND UTER 05/22/2017 ALLISON RANDALL DO Ot E11.9 TYPE 2 DIABETES MELLITUS WITHOUT COMPLIC 05/22/2017 ALLISON RANDALL DO Ot I10 ESSENTIAL (PRIMARY) HYPERTENSION 05/22/2017 ALLISON RANDALL DO Ot I25.10 ATHSCL HEART DISEASE OF [place] CORONARY 11/01/2017 Ot V76.12 11/01/2017 Ot 272.4 [...] 786.50 CHEST PAIN NOS 11/01/2017 BJ ECHEVERRIA 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 Ot 789.00 ABDOMINAL PAIN, UNSPECIFIED SITE 11/01/2017 [...] TREATMENT NOT CARRIED OUT 11/01/2017 BJ ECHEVERRIA 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 Ot M79.604 PAIN IN RIGHT LEG 11/01/2017 BJ ECHEVERRIA 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 Ot M79.605 PAIN IN LEFT LEG 11/01/2017 ALLISON RANDALL DO S Ot E11.9 TYPE 2 DIABETES MELLITUS WITHOUT COMPLIC 11/01/2017 ORENDPÉREZ ESCOTO, ALLISON S Ot I10 ESSENTIAL (PRIMARY) HYPERTENSION 11/01/2017 TONIA ESCOTO, ALLISON S Ot I25.10 ATHSCL HEART DISEASE OF [place] CORONARY 11/01/2017 OLIVIA MALLORY, RACHEL Paula Ot 789.01 ABDOMINAL PAIN, RIGHT UPPER QUADRANT 11/01/2017 EDD DENIS Ot 786.50 CHEST PAIN NOS 11/01/2017 BJ ECHEVERRIA 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 Ot 789.00 ABDOMINAL PAIN, UNSPECIFIED SITE 11/01/2017 [...] TREATMENT NOT CARRIED OUT 11/01/2017 BJ ECHEVERRIA 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 Ot M79.604 PAIN IN RIGHT LEG 11/01/2017 BJ ECHEVERRIA 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 Ot M79.605 PAIN IN LEFT LEG 11/01/2017 ALLISON RANDALL DO S Ot E11.9 TYPE 2 DIABETES MELLITUS WITHOUT COMPLIC 11/01/2017 ALLISON RANDALL DO S Ot I10 ESSENTIAL (PRIMARY) HYPERTENSION 11/01/2017 ALLISON RANDALL DO S Ot I25.10 ATHSCL HEART DISEASE OF [place] CORONARY 11/01/2017 CHARITY DAN Ot D58.2 OTHER [...] DAN Ot I25.10 ATHSCL HEART DISEASE OF [place] CORONARY 11/01/2017 CHARITY DAN Ot I65.22 OCCLUSION AND STENOSIS OF LEFT CAROTID A 11/01/2017 CHARITY DAN Ot J44.9 CHRONIC OBSTRUCTIVE PULMONARY DISEASE, U 11/01/2017 CHARITY DAN Ot K21.9 GASTRO-ESOPHAGEAL REFLUX DISEASE WITHOUT 11/01/2017 CHARITY DAN Ot M81.0 AGE- RELATED OSTEOPOROSIS W/O CURRENT PAT 11/01/2017 CHARITY ADN Ot Z79.899 OTHER CEREAL CHEMIST (CURRENT) DRUG THERAPY 11/01/2017 CHARITY DAN Ot [...] Paula Ot E86.0 DEHYDRATION 05/02/2018 OLIVIA MALLORY, RAHCEL Paula Ot E87.1 HYPO-OSMOLALITY AND HYPONATREMIA 05/02/2018 [...] S Ot I25.10 ATHSCL HEART DISEASE OF [place] CORONARY 05/02/2018 CHARITY DAN Nasim Ot D58.2 [...] Nasim Ot I25.10 ATHSCL HEART DISEASE OF [place] CORONARY 05/02/2018 CHARITY DAN Nasim Ot I65.22 OCCLUSION AND STENOSIS OF LEFT CAROTID A 05/02/2018 CHARITY DAN Nasim Ot J44.9 CHRONIC OBSTRUCTIVE PULMONARY DISEASE, U 05/02/2018 CHARITY DAN Nasim Ot K21.9 GASTRO-ESOPHAGEAL REFLUX DISEASE WITHOUT 05/02/2018 CHARITY DAN Nasim Ot M81.0 AGE- RELATED OSTEOPOROSIS W/O CURRENT PAT 05/02/2018 CHARITY DAN Nasim Ot Z79.899 OTHER LONG-TERM (CURRENT) DRUG THERAPY 05/02/2018 CHARITY DAN Nasim [...] TEAR/RUPTR OF LEFT SHOU 07/08/2018 EDD DENIS CHIEF OPERATIONS OFFICER Ot 786.50 CHEST PAIN NOS 07/08/2018 ECHEVERRIABOBNYA Rouse 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 Ot 789.00 ABDOMINAL PAIN, UNSPECIFIED SITE 07/08/2018 OLIVAI MALLORY, RACHEL Paula Ot M12.871 OTH SPECIFIC [...] TREATMENT NOT CARRIED OUT 07/08/2018 BJ ECHEVERRIA 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 Ot M79.604 PAIN IN RIGHT LEG 07/08/2018 BJ ECHEVERRIA 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 Ot M79.605 PAIN IN LEFT LEG 07/08/2018 ALLISON RANDALL DO Ot E11.9 TYPE 2 DIABETES MELLITUS WITHOUT COMPLIC 07/08/2018 ALLISON RANDALL DO S Ot I10 ESSENTIAL (PRIMARY) HYPERTENSION 07/08/2018 ALLISON RANDALL DO Ot I25.10 ATHSCL HEART DISEASE OF [place] CORONARY 07/08/2018 CHARITY DAN Ot D58.2 OTHER [...] Nasim Ot I25.10 ATHSCL HEART DISEASE OF [place] CORONARY 07/08/2018 CHARITY DAN Nasim Ot I65.22 OCCLUSION AND STENOSIS OF LEFT CAROTID A 07/08/2018 NI CHARITY Rouse Ot J44.9 CHRONIC OBSTRUCTIVE PULMONARY DISEASE, U 07/08/2018 CHARITY DAN Nasim Ot K21.9 GASTRO-ESOPHAGEAL REFLUX DISEASE WITHOUT 07/08/2018 CHARITY DAN Nasim Ot M81.0 AGE- RELATED OSTEOPOROSIS W/O CURRENT PAT 07/08/2018 CHARITY DAN Nasim Ot Z79.899 OTHER LONG-TERM (CURRENT) DRUG THERAPY 07/08/2018 CHARITY DAN Nasim [...] TINEO MD, Ot Y92.[address] IN [facility] NON-INSTIT[facility] (PRIVATE 12/04/2018 MANNY TINEO MD, Ot Y93.02 ACTIVITY, RUNNING 12/04/2018 MANNY TINEO MD, Ot Z79.82 LONG-TERM (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 OF ASPIRIN 12/04/2018 MANNY TINEO MD, Ot Z79.84 CEREAL CHEMIST (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 OF ORAL HYPOGLYC 12/04/2018 MANNY [...] DO Ot I25.10 ATHSCL HEART DISEASE OF [place] CORONARY 12/08/2018 GUADALUPE ARANGO DO Ot I73.9 [...] ENCOUNTER 12/08/2018 GUADALUPE ARANGO DO Ot Z79.82 CEREAL CHEMIST (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 OF ASPIRIN 12/08/2018 GUADALUPE ARANGO DO Ot Z79.84 CEREAL CHEMIST (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 OF ORAL HYPOGLYC 12/08/2018 GUADALUPE ARANGO DO Ot Z79.89 9 OTHER CEREAL CHEMIST (CURRENT) DRUG THERAPY 12/08/2018 GUADALUPE ARANGO DO [...] DO Ot I25.10 ATHSCL HEART DISEASE OF [place] CORONARY 12/18/2018 ARANGO DO, GUADALUPE Ot N18.9 CHRONIC KIDNEY DISEASE, UNSPECIFIED 12/18/2018 NORMAN ESCOTO GUADALUPE Ot R29.6 REPEATED FALLS 12/18/2018 NORMAN ESCOTO GUADALUPE Ot R42 DIZZINESS AND GIDDINESS 12/18/2018 ARANGOSUKI ESOCTO GUADALUPE Ot R53.1 WEAKNESS 12/18/2018 ARANGOSUKI ESCOTO GUADALUPE Ot S05.11 XD CONTUSION OF EYEBALL AND ORBITAL TISSUES 12/18/2018 NORMAN ESCOTO GUADALUPE Ot S05.12 XD CONTUSION OF EYEBALL AND ORBITAL TISSUES 12/18/2018 NORMAN ESCOTO GUADALUPE Ot S61.41 1D LACERATION WITHOUT FOREIGN BODY OF RIGHT 12/18/2018 NORMAN ESCOTO GUADALUPE Ot W19.XX XD UNSPECIFIED FALL, SUBSEQUENT ENCOUNTER 12/18/2018 NORMAN ESCOTO GUADALUPE Ot Z79.4 CEREAL CHEMIST (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 OF INSULIN 03/23/2019 GARCES DO, [...] Ot I25.1 0 ATHSCL HEART DISEASE OF [place] CORONARY 03/23/2019 GARCES DO, LINCOLN L Ot J44.9 CHRONIC OBSTRUCTIVE PULMONARY DISEASE, U 03/23/2019 GARCES DO, LINCOLN L Ot R53.8 3 OTHER FATIGUE 03/23/2019 GARCES DO, LINCOLN L Ot Z79.4 LONG-TERM (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 OF INSULIN 03/23/2019 GARCES DO, LINCOLN L Ot Z79.8 2 LONG-TERM (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 OF ASPIRIN 03/23/2019 GARCES DO, [...] Guadalupe Arango W 414.01 CORONARY ATHEROSCLEROSIS OF [place] CORONARY ARTERY 03/26/2019 Guadalupe Arango W 443.9 PERIPHERAL VASCULAR DISEASE, UNSPECIFIED 03/26/2019 Guadalupe Arango W 491.20 OBSTRUCTIVE CHRONIC BRONCHITIS, WITHOUT EXACERBATION 03/26/2019 Guadalupe Arango W 530.81 ESOPHAGEAL REFLUX 03/26/2019 Guadalupe Arango W 562.12 DIVERTICULOSIS OF COLON WITH [...] Arango W I25.10 ATHSCL HEART DISEASE OF [place] CORONARY ARTERY W/O ANG PCTRS 03/26/2019 Guadalupe [...] Ot I25.1 0 ATHSCL HEART DISEASE OF [place] CORONARY 03/28/2019 GARCES DO, LINCOLN L Ot J44.9 CHRONIC OBSTRUCTIVE PULMONARY DISEASE, U 03/28/2019 GARCES DO, LINCOLN L Ot R53.8 3 OTHER FATIGUE 03/28/2019 GARCES DO, LINCOLN L Ot Z79.4 CEREAL CHEMIST (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 OF INSULIN 03/28/2019 GARCES DO, LINCOLN L Ot Z79.8 2 LONG-TERM (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 OF ASPIRIN 03/28/2019 GARCES DO, [...] Ot I25.1 0 ATHSCL HEART DISEASE OF [place] CORONARY 03/31/2019 GARCES DO, LINCOLN L Ot J44.9 CHRONIC OBSTRUCTIVE PULMONARY DISEASE, U 03/31/2019 GARCES DO, LINCOLN L Ot R53.8 3 OTHER FATIGUE 03/31/2019 GARCES DO, LINCOLN L Ot Z79.4 CEREAL CHEMIST (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 OF INSULIN 03/31/2019 GARCES DO, LINCOLN L Ot Z79.8 2 CEREAL CHEMIST (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 OF ASPIRIN 03/31/2019 GARCES DO, [...] APRN Ot I25.10 ATHSCL HEART DISEASE OF [place] CORONARY 04/11/2019 JESSICA BERNSTEIN APRN Ot J44 .9 CHRONIC OBSTRUCTIVE PULMONARY DISEASE, U 04/11/2019 JESSICA BERNSTEIN APRN Ot M25.571 PAIN IN RIGHT ANKLE AND JOINTS OF RIGHT 04/11/2019 JESSICA BERNSTEIN APRN Ot S82.891A OTH FRACTURE OF RIGHT LOWER LEG, INIT FO 04/11/2019 JESSICA BERNSTEIN APRN Ot W19.XXXA UNSPECIFIED FALL, INITIAL ENCOUNTER 04/11/2019 JESSICA BERNSTEIN APRN Ot Z79 .4 LONG-TERM (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 OF INSULIN 04/11/2019 JESSICA BERNSTEIN APRN Ot Z79.82 LONG-TERM (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 OF ASPIRIN 04/11/2019 JESSICA BERNSTEIN [...] S Ot I25.10 ATHSCL HEART DISEASE OF [place] CORONARY 04/11/2019 NICHARITY Ot 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 04/11/2019 NICHARITY Ot D72.829 ELEVATED WHITE BLOOD CELL COUNT, UNSPECI 04/11/2019 NICHARITY Ot E11.43 TYPE 2 DIABETES W DIABETIC AUTONOMIC (PO 04/11/2019 CHRAITY DAN Ot E78.00 PURE HYPERCHOLESTEROLEMIA, UNSPECIFIED 04/11/2019 CHARITY DAN Ot F17.210 NICOTINE DEPENDENCE, CIGARETTES, UNCOMPL 04/11/2019 CHARITY DAN Ot F32.9 MAJOR DEPRESSIVE DISORDER, SINGLE EPISOD 04/11/2019 CHARITY DAN Ot F41.9 ANXIETY DISORDER, UNSPECIFIED 04/11/2019 NICHARITY Ot I10 ESSENTIAL (PRIMARY) HYPERTENSION 04/11/2019 CHARITY DAN Ot I25.10 ATHSCL HEART DISEASE OF [place] CORONARY 04/11/2019 NI MUKUNDHALLE Rouse Ot I65.22 OCCLUSION AND STENOSIS OF LEFT CAROTID A 04/11/2019 CHARITY DAN Ot J44.9 CHRONIC OBSTRUCTIVE PULMONARY DISEASE, U 04/11/2019 CHARITY DAN Ot K21.9 GASTRO-ESOPHAGEAL REFLUX DISEASE WITHOUT 04/11/2019 CHARITY DAN Ot M81.0 AGE- RELATED OSTEOPOROSIS W/O CURRENT PAT 04/11/2019 CHARITY DAN Ot Z79.899 OTHER CEREAL CHEMIST (CURRENT) DRUG THERAPY 04/11/2019 CHARITY DAN Ot [...] APRN Ot I25.10 ATHSCL HEART DISEASE OF [place] CORONARY 04/14/2019 JESSICA BERNSTEIN APRN Ot J44 .9 CHRONIC OBSTRUCTIVE PULMONARY DISEASE, U 04/14/2019 JESSICA BERNSTEIN APRN Ot M25.571 PAIN IN RIGHT ANKLE AND JOINTS OF RIGHT 04/14/2019 JESSICA BERNSTEIN APRN Ot S82.891A OTH FRACTURE OF RIGHT LOWER LEG, INIT FO 04/14/2019 JESSICA BERNSTEIN APRN Ot W19.XXXA UNSPECIFIED FALL, INITIAL ENCOUNTER 04/14/2019 JESSICA BERNSTEIN APRN Ot Z79 .4 LONG-TERM (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 OF INSULIN 04/14/2019 JESSICA BERNSTEIN APRN Ot Z79.82 CEREAL CHEMIST (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 OF ASPIRIN 04/14/2019 JESSICA BERNSTEIN [...] MALLORY, RACHEL Paula Ot E86.0 DEHYDRATION 05/26/2019 RACHEL BAKER MD Ot E87.1 HYPO-OSMOLALITY AND [...] S Ot I25.10 ATHSCL HEART DISEASE OF [place] CORONARY 05/26/2019 CHARITY DAN Ot D58.2 OTHER [...] DAN Ot I25.10 ATHSCL HEART DISEASE OF [place] CORONARY 05/26/2019 CHARITY DAN Ot I65.22 OCCLUSION AND STENOSIS OF LEFT CAROTID A 05/26/2019 CHARITY DAN Ot J44.9 CHRONIC OBSTRUCTIVE PULMONARY DISEASE, U 05/26/2019 CHARITY DAN Nasim Ot K21.9 GASTRO-ESOPHAGEAL REFLUX DISEASE WITHOUT 05/26/2019 CHARITY DAN Ot M81.0 AGE- RELATED OSTEOPOROSIS W/O CURRENT PAT 05/26/2019 CHARITY DAN Ot Z79.899 OTHER CEREAL CHEMIST (CURRENT) DRUG THERAPY 05/26/2019 CHARITY DAN Ot Z90.710 ACQUIRED ABSENCE OF BOTH CERVIX AND UTER 05/26/2019 RACHEL BAKER MD Ot M19.012 PRIMARY OSTEOARTHRITIS, LEFT SHOULDER 05/26/2019 RACHEL BAKER MD Ot M75.102 UNSP ROTATR-CUFF TEAR/RUPTR OF LEFT SHOU 05/26/2019 RACHEL BAKER MD Ot M19.012 PRIMARY OSTEOARTHRITIS, LEFT SHOULDER 05/27/2019 Ot Z01.89 ENC OUNTER FOR OTHER SPECIFIED SPECIAL EX 05/29/2019 Ot Z01.89 ENC OUNTER FOR OTHER SPECIFIED SPECIAL EX 06/16/2019 Ot Z01.89 ENC OUNTER FOR OTHER SPECIFIED SPECIAL EX 06/29/2019 Ot Z01.89 ENC OUNTER FOR OTHER SPECIFIED SPECIAL EX 11/10/2019 EDD DENIS Ot 786.50 CHEST PAIN NOS 11/10/2019 BJ ECHEVERRIA APRN Ot 789.00 ABDOMINAL PAIN, UNSPECIFIED SITE 11/10/2019 RACHEL BAKER MD Ot M12.871 OTH SPECIFIC ARTHROPATHIES, NEC, RIGHT A 11/10/2019 RACHEL BAKER MD Ot M12.872 OTH SPECIFIC ARTHROPATHIES, NEC, LEFT AN 11/10/2019 Ot M81.0 AGE- RELATED OSTEOPOROSIS W/O CURRENT PAT 11/10/2019 RACHEL BAKER MD Ot E86.0 DEHYDRATION 11/10/2019 RACHEL BAKER MD Ot E87.1 HYPO-OSMOLALITY AND HYPONATREMIA 11/10/2019 RACHEL BAKER MD Ot E87.6 HYPOKALEMIA 11/10/2019 VALE BRUCE DO Ot K21. 9 GASTRO-ESOPHAGEAL REFLUX DISEASE WITHOUT 11/10/2019 VALE BRUCE DO Ot R19. 7 DIARRHEA, UNSPECIFIED 11/10/2019 VALE BRUCE DO Ot Z53. 8 PROCEDURE AND TREATMENT NOT CARRIED OUT 11/10/2019 BJ ECHEVERRIA Nasim CAVAZOS Ot M79.604 PAIN IN RIGHT LEG 11/10/2019 BJ ECHEVERRIA Nasim CAVAZOS Ot M79.605 PAIN IN LEFT LEG 11/10/2019 ALLISON RANDALL DO Ot E11.9 TYPE 2 DIABETES MELLITUS WITHOUT COMPLIC 11/10/2019 SHOAIBNDER ALLISON ESCOTO S Ot I10 ESSENTIAL (PRIMARY) HYPERTENSION 11/10/2019 TJER ALLISON ESCOTO S Ot I25.10 ATHSCL HEART DISEASE OF [place] CORONARY 11/10/2019 CHARITY DAN Ot 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 11/10/2019 CHARITY DAN Ot D72.829 ELEVATED WHITE BLOOD CELL COUNT, UNSPECI 11/10/2019 CHARITY DAN Ot E11.43 TYPE 2 DIABETES W DIABETIC AUTONOMIC (PO 11/10/2019 CHARITY DAN Ot E78.00 PURE HYPERCHOLESTEROLEMIA, UNSPECIFIED 11/10/2019 CHARITY DAN Ot F17.210 NICOTINE DEPENDENCE, CIGARETTES, UNCOMPL 11/10/2019 CHARITY DAN Ot F32.9 MAJOR DEPRESSIVE DISORDER, SINGLE EPISOD 11/10/2019 CHARITY DAN Ot F41.9 ANXIETY DISORDER, UNSPECIFIED 11/10/2019 CHARITY DAN Ot I10 ESSENTIAL (PRIMARY) HYPERTENSION 11/10/2019 CHARITY DAN Ot I25.10 ATHSCL HEART DISEASE OF [place] CORONARY 11/10/2019 CHARITY DAN Ot I65.22 OCCLUSION AND STENOSIS OF LEFT CAROTID A 11/10/2019 CHARITY DAN Ot J44.9 CHRONIC OBSTRUCTIVE PULMONARY DISEASE, U 11/10/2019 CHARITY DAN Ot K21.9 GASTRO-ESOPHAGEAL REFLUX DISEASE WITHOUT 11/10/2019 CHARITY DAN Ot M81.0 AGE- RELATED OSTEOPOROSIS W/O CURRENT PAT 11/10/2019 CHARITY DAN Ot Z79.899 OTHER LONG-TERM (CURRENT) DRUG THERAPY 11/10/2019 CHARITY DAN Ot Z90.710 ACQUIRED ABSENCE OF BOTH CERVIX AND UTER 11/10/2019 OLIVIA MALLORY, RACHEL Paula Ot M19.012 PRIMARY OSTEOARTHRITIS, LEFT SHOULDER 11/10/2019 OLIVIA MALLORY, RACHEL Paula Ot M75.102 UNSP ROTATR-CUFF TEAR/RUPTR OF LEFT SHOU 11/10/2019 OLIVIA MALLORY, RACHEL Paula Ot M19.012 PRIMARY OSTEOARTHRITIS, LEFT SHOULDER 11/10/2019 Ot Z01.89 ENC OUNTER FOR OTHER SPECIFIED SPECIAL EX 11/11/2019 BART MALLORY, SHARAD Bright Ot E11.51 TYPE 2 DIABETES W DIABETIC PERIPHERAL AN 11/11/2019 BART MALLORY, SHARAD Bright Ot E78.00 PURE HYPERCHOLESTEROLEMIA, UNSPECIFIED 11/11/2019 BART MALLORY, SHARAD Bright Ot F03.90 UNSPECIFIED DEMENTIA WITHOUT BEHAVIORAL 11/11/2019 BART MALLORY, SHARAD Bright Ot F17.210 NICOTINE DEPENDENCE, CIGARETTES, UNCOMPL 11/11/2019 SHARAD ARRIAGA MD Ot F22 DELUSIONAL DISORDERS 11/11/2019 SHARAD ARRIAGA MD, Ot F41.9 ANXIETY DISORDER, UNSPECIFIED 11/11/2019 SHARAD ARRIAGA MD Ot I25.10 ATHSCL HEART DISEASE OF [place] CORONARY 11/11/2019 BART MALLORY, SHARAD Bright Ot J44.9 CHRONIC OBSTRUCTIVE PULMONARY DISEASE, U 11/11/2019 SHARAD ARRIAGA MD Ot M81.0 AGE-RELATED OSTEOPOROSIS W/O CURRENT PAT 11/11/2019 SHARAD ARRIAGA MD, Ot N28.9 DISORDER OF KIDNEY AND URETER, UNSPECIFI 11/11/2019 SHARAD ARRIAGA MD Ot N39.0 URINARY TRACT INFECTION, SITE NOT SPECIF 11/11/2019 SHARAD ARRIAGA MD Ot S70.02XA CONTUSION OF LEFT HIP, INITIAL ENCOUNTER 11/11/2019 SHARAD ARRIAGA MD Ot S80.212A ABRASION, LEFT KNEE, INITIAL ENCOUNTER 11/11/2019 SHARAD ARRIAGA MD Ot W19.XXXA UNSPECIFIED FALL, INITIAL ENCOUNTER 11/11/2019 SHARAD ARRIAGA MD Ot Y92.[address] IN DETENTION PLACE 11/11/2019 SHARAD ARRIAGA MD, Ot Z79.82 LONG-TERM (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 OF ASPIRIN 11/11/2019 SHARAD ARRIAGA MD Ot Z79.84 CEREAL CHEMIST (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 OF ORAL HYPOGLYC 11/11/2019 SHARAD ARRIAGA MD, Ot Z79.899 OTHER CEREAL CHEMIST (CURRENT) DRUG THERAPY 11/11/2019 SHARAD ARRIAGA MD, Ot Z88.1 ALLERGY STATUS TO OTHER ANTIBIOTIC AGENT 11/11/2019 SHARAD ARRIAGA MD, Ot Z88.7 ALLERGY STATUS TO SERUM AND VACCINE STAT 11/11/2019 SHARAD ARRIAGA MD, Ot Z91.81 HISTORY OF FALLING Procedures There is no data. Results Test [...] detection by light microscopy [facility] Influenza virus A and B antigen detectio n - 03/23/19 14:55 FLU RESULT NEGATIVE FOR INFLUENZA A AND B ANTIGENS BY [facility] Comprehensive metabolic panel - 03/23/19 14:55 Serum [...] d white blood cell (WBC) differential - 11/10/19 02:58 Blood leukocytes automated count (number/volume) 6.3 10*3/uL 4.3-11.0 Blood erythrocytes automated count (number/volume) 3.80 10*6/uL 4.35-5.85 Venous blood hemoglobin measurement (mass/volume) 11.3 g/dL 11.5-16.0 Blood hematocrit (volume fraction) 35 % 35-52 Automated erythrocyte mean corpuscular volume 91 [ foz_us] 80-99 Automated erythrocyte mean corpuscular h emoglobin (mass per erythrocyte) 30 pg 25-34 Automated erythrocyte mean corpuscular h emoglobin concentration measurement (mass/volume) 33 g/dL 32-36 Automated erythrocyte distribution width ratio 17. 0 % 10.0- 14.5 Automated blood platelet count (count/volume) 130 10*3/uL 130-400 Automated blood platelet mean volume measurement 9.3 [foz_us] 7.4-10.4 Automated blood neutrophils/100 leukocytes 64 % 42-75 Automated blood lymphocytes/100 leukocytes 23 % 12-44 Blood monocytes/100 leukocytes 10 % 0-12 Automated blood eosinophils/100 leukocytes 3 % 0-10 Automated blood basophils/100 leukocytes 0 % 0-10 Blood neutrophils automated count (number/volume) 4.0 10*3 1.8-7.8 Blood lymphocytes automated count (number/volume) 1.4 10*3 1.0-4.0 Blood monocytes automated count (number/volume) 0. 6 10*3 0.0-1.0 Automated eosinophil count 0.2 10*3/uL 0 .0-0.3 Automated blood basophil count (count/volume) 0.0 10*3/uL 0.0-0.1 Comprehensive metabolic panel - 11/10/19 02:58 Serum or plasma sodium measurement (moles/volume) 142 mmol/L 135-145 Serum or plasma potassium measurement (moles/volume) 4.5 mmol/L 3.6-5.0 Serum or plasma chloride measurement (moles/volume) 105 mmol/L 98-107 Carbon dioxide 22 mmol/L 21-32 Serum or plasma anion gap determination (moles/volume) 15 mmol/L 5-14 Serum or plasma urea nitrogen measurement (mass/volume ) 28 mg/dL 7-18 Serum or plasma creatinine measurement (mass/volume) 2.06 mg/dL 0.60-1.30 Serum or plasma urea nitrogen/creatinine mass ratio 14 NRG Serum or plasma creatinine measurement w ith calculation of estimated glomerular filtration rate 24 NRG Serum or plasma glucose measurement (mass/volume) 141 mg/dL 70-105 Serum or plasma calcium measurement (mass/volume) 9.9 mg/dL 8.5-10.1 Serum or plasma total bilirubin measurement (mass/volu me) 0.3 mg/dL 0.1-1.0 Serum or plasma alkaline phosphatase adrian surement (enzymatic activity/volume) 58 U/L 40-136 Serum or plasma aspartate aminotransfera se measurement (enzymatic activity/volume) 17 U/L 5-34 Serum or plasma alanine aminotransferase measurement (enzymatic activity/volume) 17 U/L 0-55 Serum or plasma protein measurement (mass/volume) 7.0 g/dL 6.4-8.2 Serum or plasma albumin measurement (mass/volume) 4.2 g/dL 3.2-4.5 CALCIUM CORRECTED 9.7 mg/dL 8.5-10.1 Magnesium - 11/10/19 02:58 Magnesium 2.5 mg/dL 1.6-2.4 Serum or plasma thyrotropin measurement by detection limit <=0.05 miu/l (units/volume) - 11/10/19 02:58 Serum or plasma thyrotropin measurement by detection limit <=0.05 miu/l (units/volume) 4.01 u[iU]/mL 0.35-4.94 Complete urinalysis with reflex to cultu re - 11/10/19 03:03 Urine color determination YELLOW NRG Urine clarity determination TURBID NR G Urine pH measurement by test strip 6.5 5-9 Specific gravity of urine by test strip 1.010 1.016-1.022 Urine protein assay by test strip, semi-quantitative NEGATIVE NEGATIVE Urine glucose detection by automated test strip 3+ NEGATIVE Erythrocytes detection in urine sediment by light micr oscopy TRACE-L NEGATIVE Urine ketones detection by automated test strip NE GATIVE NEGATIVE Urine nitrite detection by test strip NEGATIVE NEGATIVE Urine total bilirubin detection by test strip NEGA TIVE NEGATIVE Urine urobilinogen measurement by automated test strip (mass/volume) 0.2 mg/dL < = 1.0 Urine leukocyte esterase detection by dipstick 3+ NEGATIVE Automated urine sediment erythrocyte cou nt by microscopy (number/high power field) [HPF] NRG Automated urine sediment leukocyte count by microscopy (number/high power field) [HPF] NRG Bacteria detection in urine sediment by light microsco py FEW NRG Squamous epithelial cells detection in u rine sediment by light microscopy 0-2 NRG Crystals detection in urine sediment by light microsco py PRESENT NRG Casts detection in urine sediment by light microscopy NONE NRG Mucus detection in urine sediment by light microscopy NEGATIVE NRG Complete urinalysis with reflex to culture YES NRG Yeast detection in urine sediment by light microscopy LARGE NRG Amorphous sediment detection in urine sediment by ligh t microscopy FEW SAMSON URATES NRG Bacterial urine culture - 11/10/19 03:03 Bacterial urine culture [id number] NRG COLONY COUNT >100,000/ML NRG SUSCEPTIBILITY WITH A PREDOMINANCE OF N RG Complete blood count (CBC) with automate d white blood cell (WBC) differential - 11/26/19 17:05 Blood leukocytes automated count (number/volume) 6.3 10*3/uL 4.3-11.0 Blood erythrocytes automated count (number/volume) 4.31 10*6/uL 4.35-5.85 Venous blood hemoglobin measurement (mass/volume) 12.9 g/dL 11.5-16.0 Blood hematocrit (volume fraction) 38 % 35-52 Automated erythrocyte mean corpuscular volume 88 [ foz_us] 80-99 Automated erythrocyte mean corpuscular h emoglobin (mass per erythrocyte) 30 pg 25-34 Automated erythrocyte mean corpuscular h emoglobin concentration measurement (mass/volume) 34 g/dL 32-36 Automated erythrocyte distribution width ratio 16. 4 % 10.0- 14.5 Automated blood platelet count (count/volume) 203 10*3/uL 130-400 Automated blood platelet mean volume measurement 8.9 [foz_us] 7.4-10.4 Automated blood neutrophils/100 leukocytes 67 % 42-75 Automated blood lymphocytes/100 leukocytes 21 % 12-44 Blood monocytes/100 leukocytes 10 % 0-12 Automated blood eosinophils/100 leukocytes 2 % 0-10 Automated blood basophils/100 leukocytes 0 % 0-10 Blood neutrophils automated count (number/volume) 4.3 10*3 1.8-7.8 Blood lymphocytes automated count (number/volume) 1.3 10*3 1.0-4.0 Blood monocytes automated count (number/volume) 0. 7 10*3 0.0-1.0 Automated eosinophil count 0.1 10*3/uL 0 .0-0.3 Automated blood basophil count (count/volume) 0.0 10*3/uL 0.0-0.1 Blood lactic acid measurement (moles/vol ume) - 11/26/19 17:05 Blood lactic acid measurement (moles/volume) 1.18 mmol/L 0.50-2.00 PT panel in platelet poor plasma by coag ulation assay - 11/26/19 17:05 Prothrombin time (PT) in platelet poor plasma by coagu lation assay 13.8 s 12.2-14.7 INR in platelet poor plasma or blood by coagulation as say 1.0 0.8-1.4 Activated partial thromboplastin time (a PTT) in platelet poor plasma bycoagulation assay - 11/26/19 17:05 Activated partial thromboplastin time (a PTT) in platelet poor plasma bycoagulation assay 34 s 24-35 Comprehensive metabolic panel - 11/26/19 17:05 Serum or plasma sodium measurement (moles/volume) 141 mmol/L 135-145 Serum or plasma potassium measurement (moles/volume) 3.7 mmol/L 3.6-5.0 Serum or plasma chloride measurement (moles/volume) 108 mmol/L 98-107 Carbon dioxide 19 mmol/L 21-32 Serum or plasma anion gap determination (moles/volume) 14 mmol/L 5-14 Serum or plasma urea nitrogen measurement (mass/volume ) 18 mg/dL 7-18 Serum or plasma creatinine measurement (mass/volume) 1.25 mg/dL 0.60-1.30 Serum or plasma urea nitrogen/creatinine mass ratio 14 NRG Serum or plasma creatinine measurement w ith calculation of estimated glomerular filtration rate 42 NRG Serum or plasma glucose measurement (mass/volume) 183 mg/dL 70-105 Serum or plasma calcium measurement (mass/volume) 9.4 mg/dL 8.5-10.1 Serum or plasma total bilirubin measurement (mass/volu me) 0.6 mg/dL 0.1-1.0 Serum or plasma alkaline phosphatase adrian surement (enzymatic activity/volume) 59 U/L 40-136 Serum or plasma aspartate aminotransfera se measurement (enzymatic activity/volume) 24 U/L 5-34 Serum or plasma alanine aminotransferase measurement (enzymatic activity/volume) 35 U/L 0-55 Serum or plasma protein measurement (mass/volume) 7.3 g/dL 6.4-8.2 Serum or plasma albumin measurement (mass/volume) 4.2 g/dL 3.2-4.5 CALCIUM CORRECTED 9.2 mg/dL 8.5-10.1 Complete urinalysis with reflex to cultu re - 11/26/19 17:30 Urine color determination YELLOW NRG Urine clarity determination CLEAR NR G Urine pH measurement by test strip 6.0 5-9 Specific gravity of urine by test strip >= 1.016-1.022 Urine protein assay by test strip, semi-quantitative TRACE NEGATIVE Urine glucose detection by automated test [...] 1.0 Urine leukocyte esterase detection by dipstick 1+ NEGATIVE Automated urine sediment erythrocyte cou nt by microscopy (number/high power field) NONE NRG Automated urine sediment leukocyte count by microscopy (number/high power field) [HPF] NRG Bacteria detection in urine sediment by light microsco py NEGATIVE NRG Squamous epithelial cells detection in u rine sediment by light microscopy NONE NRG Crystals detection in urine sediment by light microsco py NONE NRG Casts detection in urine sediment by light microscopy NONE NRG Mucus detection in urine sediment by light microscopy NEGATIVE NRG Complete urinalysis with reflex to culture YES NRG Yeast detection in urine sediment by light microscopy LARGE NRG Encounters ACCT No. Visit Date/Time Discharge Status Pt. Type Provider Facility Loc./Unit Complaint [id number] 03/23/2019 18:00:00 03/26/2019 09:00: 00 DIS Inpatient Guadalupe Arango [facility] C enter ICU [id number] 03/23/2019 19:22:08 Document Registration [id number] 05/23/2019 14:20:00 23:59:59 CLS Outpatient RACHEL BAKER MD [facility] LABNPT [id number] 11/10/2019 01:43:00 05:27:00 DIS Outpatient SHARAD ARRIAGA MD [facility] ER FALL,UTI [id number] 04/11/2019 20:49:00 21:57:00 DIS Emergency JESSICA BERNSTEIN APRN [facility] ER FALL/RT FOOT INJURY [id number] 03/23/2019 14:40:00 17:40:00 DIS Emergency GARCES DO, LINCOLN L [facility] ER LETHARGIC [id number] 12/08/2018 10:30:00 13:20:00 DIS Inpatient ARANGO DO, GUADALUPE V [facility] IRF RECURRENT FALLS [id number] 12/06/2018 22:30:00 08:27:00 DIS Inpatient ARANGO DO, GUADALUPE V ia [facility] 4TH MULTIPLE FALLS, WEAKNES S, HYPERGLYCEMIA, [id number] 12/04/2018 09:34:00 11:26:00 DIS Emergency MANNY TINEO MD [facility] ER FALL [id number] 05/07/2018 12:09:00 23:59:59 CLS Outpatient RACHEL BAKER MD [facility] RAD PAIN IN LEFT SHOULDER [id number] 05/02/2018 12:51:00 23:59:59 CLS Outpatient RACHEL BAKER MD [facility] RAD [id number] 05/09/2017 00:38:00 23:59:59 CLS Preadmit CHARITY DAN [facility] ONC [id number] 03/07/2017 14:53:00 00:01:00 DIS Outpatient CHARITY DAN V ia [facility] ONC [id number] 04/26/2017 07:00:00 018 23:59:59 CLS Outpatient ALLISON RANDALL DO S [facility] HH CAD,DM TYPE 2,H [place] [id number] 01/08/2017 12:46:00 017 23:59:59 CLS Preadmit ANTONINA 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 [facility] WOUNDCARE [id number] 01/04/2017 13:09:00 017 15:46:00 DIS Emergency ODIN AGUIRRE [facility] ER OPEN WOUNDS B FEET [id number] 12/04/2016 11:26:00 017 23:59:59 CLS Outpatient BJ ECHEVERRIA 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 [facility] RAD PAIN IN RIGHT LEG [id number] 01/25/2016 09:00:00 016 09:00:00 CAN Preadmit VALE BRUCE DO [facility] SDC DIARRHEA;GERD [id number] 01/24/2016 10:38:00 016 23:59:59 CLS Outpatient VALE BRUCE DO [facility] SDC DIARRHEA;GERD [id number] 01/18/2016 06:34:00 016 15:00:00 DIS Outpatient VALE BRUCE DO [facility] PREOP DIARRHEA;GERD [id number] 12/20/2015 11:30:00 18:12:00 DIS Inpatient SHERRILL TIWARI MD [facility] 4TH RLQ PAIN DIARRHEA ACUTE RENAL INSUFFICIENCY [id number] 11/30/2015 12:24:00 016 23:59:59 CLS [facility]EM[facility] [id number] 04/25/2015 12:34:00 016 23:59:59 CLS Outpatient RACHEL BAKER MD [facility] RAD DISORDER OF JOINT OF A NKLE AND FOOT [id number] 08/12/2014 09:29:00 015 23:59:59 CLS Outpatient BJ ECHEVERRIA Nasim CAVAZOS [facility] RAD RUQ PAIN [id number] 08/02/2014 09:27:00 015 23:59:59 CLS Outpatient EDD DENIS [facility] CARD CHEST PAIN [id number] 08/02/2013 22:17:00 014 01:13:00 DIS Emergency MANNY TINEO MD [facility] ER ABD PAIN;[facility] EA [id number] 10/09/2012 08:41:00 013 23:59:59 CLS Outpatient RACHEL BAKER MD [facility] RAD RUQ PAIN [id number] 11/26/2019 17:21:00 Document Registration [id number] 05/23/2019 14:20:00 Document Registration [id number] 11/01/2017 02:39:00 Document Registration [id number] 05/12/2015 11:33:00 Document Registration [id number] 08/02/2014 09:23:00 Document Registration [id number] 08/02/2014 09:23:00 Document Registration [id number] 08/02/2014 09:23:00 Document Registration [id number] 12/18/2011 06:14:00 Document Registration [id number] 10/29/2011 08:53:00 Document Registration [id number] 10/22/2011 06:54:00 Document Registration [id number] 11/13/2010 08:06:00 Document Registration [id number] 08/10/2010 07:40:00 Document Registration [id number] 05/31/2010 08:11:00 Document Registration [id number] 04/17/2010 10:03:00 Document Registration [id number] 10/26/2009 07:14:00 Document Registration [id number] 05/03/2008 09:20:00 Document Registration [id number] 06/18/2018 18:17:50 06/18/2018 23:59:5 9 [facility] [id number] 03/23/2019 18:00:00 Document Registration
[2019-11-26] MEDS ORDERED: cefTRIAXone 1,000 MG/SWFI 10 ML IV PUSH IV SCH ×2 (20:00)
[2019-11-26 20:08] VITALS: BP 174/80
[2019-11-26] MEDS ORDERED: ACETAMINOPHEN 325 MG TABLET PO PRN (20:15)
[2019-11-26] MEDS ORDERED: IBUPROFEN 600 MG (MOTRIN) TAB PO PRN (20:15)
[2019-11-26] MEDS ORDERED: ONDANSETRON 4 MG/2 ML (SDV) Z0FRAN IV PRN (20:15)
[2019-11-26] MEDS ORDERED: CATHETER FLUSH 10 ML SYR IV PRN (20:30)
[2019-11-26] MEDS: NS IV 1000 ML 1,000 ML IV SCH (20:37)
[2019-11-26] MEDS: inSUlin ASPART (NovoLOG) 1 UNIT/0.01 ML (CHARGE PER UNIT) SC SCH (21:00)
[2019-11-27] VITALS: BP 157/73
[2019-11-27] MEDS ORDERED: cefTRIAXone FOR IV USE 1,000 MG in WATER (STERILE) FOR INJECTION 10 ML IV SCH ×2
[2019-11-27] MEDS: VANCOMYCIN INJECTION 750 MG in NS (IVPB) 250 ML IV SCH ×2 (00:08→00:10)
[2019-11-27] MEDS: NS IV 1000 ML 1,000 ML IV SCH ×2 (02:59→05:41)
[2019-11-27 04:00] VITALS: BP 149/75
[2019-11-27] MEDS: inSUlin ASPART (NovoLOG) 1 UNIT/0.01 ML (CHARGE PER UNIT) SC SCH ×2 (05:41→11:53)
[2019-11-27 07:02] LABS: BASOPHILS % (AUTO) 0 % (0-10); EOSINOPHILS # (AUTO) 0.1 10^3/uL (0.0-0.3); EOSINOPHILS % (AUTO) 2 % (0-10); HEMATOCRIT 34 % (35-52); LYMPHOCYTES # (AUTO) 0.9 X 10^3 (1.0-4.0); LYMPHOCYTES % (AUTO) 16 % (12-44); MEAN CORPUSCULAR HEMOGLOBIN 29 PG (25-34); MEAN CORPUSCULAR HGB CONC 33 G/DL (32-36); MEAN CORPUSCULAR VOLUME 89 FL (80-99); MEAN PLATELET VOLUME 9.5 FL (7.4-10.4); MONOCYTES # (AUTO) 0.5 X 10^3 (0.0-1.0); MONOCYTES % (AUTO) 9 % (0-12); NEUTROPHILS % (AUTO) 73 % (42-75); PLATELET COUNT 178 10^3/uL (130-400); RED CELL DISTRIBUTION WIDTH 16.2 % (10.0-14.5); WHITE BLOOD COUNT 5.5 10^3/uL (4.3-11.0)
[2019-11-27 07:22] LABS: ALANINE AMINOTRANSFERASE 28 U/L (0-55); ALBUMIN 3.5 GM/DL (3.2-4.5); ALKALINE PHOSPHATASE 49 U/L (40-136); BILIRUBIN,TOTAL 0.4 MG/DL (0.1-1.0); BUN/CREATININE RATIO 13; CALCIUM 8.2 MG/DL (8.5-10.1); CARBON DIOXIDE 19 MMOL/L (21-32); CHLORIDE 112 MMOL/L (98-107); CREATININE SERUM 0.87 MG/DL (0.60-1.30); GFR ESTIMATED > 60; GLUCOSE 145 MG/DL (70-105); POTASSIUM 3.5 MMOL/L (3.6-5.0); SODIUM 144 MMOL/L (135-145); TOTAL PROTEIN 6.1 GM/DL (6.4-8.2)
[2019-11-27 08:00] VITALS: BP 174/92
--- NOTE | 2019-11-27 08:10 | NUR ---
PATIENT HAS SET OFF BED ALARM MULTIPLE TIMES THIS AM TRYING TO GET OUT OF BED. SHOWER ATTENDANT RN STATED PATIENT FELL PRIOR TO SHIFT CHANGE THIS AM, PATIENT ALSO PULLED OUT HER IV AT THIS TIME, AND STATED SHE WAS NOT EATING BREAKFAST BECAUSE THERE ARE SNAKE IN HER ROOM. PATIENT CONTINUES TO BE CONFUSED, THIS RN ASKED FOR A IN PERSON SITTER AT THIS TIME
[2019-11-27] MEDS ORDERED: ALPR1TAB2 PO (08:47)
[2019-11-27] MEDS ORDERED: PREG75CA75 PO (08:47)
[2019-11-27] MEDS ORDERED: CNC1KV IM (08:47)
[2019-11-27] MEDS ORDERED: INSU100I14 SC (08:47)
[2019-11-27] MEDS ORDERED: LINA5TAB PO (08:47)
[2019-11-27] MEDS ORDERED: MECL-149 PO (08:47)
[2019-11-27] MEDS ORDERED: INSU100I32 SC (08:47)
[2019-11-27] MEDS ORDERED: LIRA0.6P3 SC (08:47)
[2019-11-27] MEDS ORDERED: QUET25TA PO (08:47)
[2019-11-27] MEDS ORDERED: HYDR-3812 PO (08:47)
[2019-11-27] MEDS ORDERED: FERR325T18 PO (08:47)
[2019-11-27] MEDS ORDERED: ACET325C7 PO (08:47)
[2019-11-27] MEDS ORDERED: ALPR0.5T7 PO (08:47)
[2019-11-27] MEDS ORDERED: BISM262T19 PO (08:47)
[2019-11-27] MEDS ORDERED: ASPI-999 PO (08:47)
[2019-11-27] MEDS ORDERED: CHOL500049 PO (08:47)
[2019-11-27] MEDS ORDERED: CHOL500050 PO (08:52)
--- NOTE | 2019-11-27 08:56 | NUR ---
ENTERED THE MED REC USING THE MEDICATION REVIEW REPORT FROM [facility]
--- NOTE | 2019-11-27 10:27 | NUR ---
SPOKE TO NANCY TAYLOR REGARDING PATIENTS BASELINE STATUS. [facility] NURSE TOLD THIS RN THAT PATIENT IS NORMALLY ORIENTATED TO PERSON AND DATE BUT TENDS TO BE CONFUSED WHEN IT COMES TO WHERE SHE IS. THIS RN ASKED [facility] STAFF IF PATIENT USES A WHEELCHAIR AT THE FACILITY AND STAFF STATED YES. PATIENT HAS BEEN TRANSFERRING TO BEDSIDE COMMODE X1 ASSIST WITHOUT WHEELCHAIR WHILE DURING THIS HOSPITAL STAY BUT CONTINUES TO BE CONFUSED TO WHERE SHE IS. [facility] STAFF STATED SOME OF HER FALLS ARE DUE TO PATIENT NEEDING TO GO TO THE BATHROOM AND STAFF TAKING TO LONG TO ASSIST
--- NOTE | 2019-11-27 10:33 | NUR ---
RD ASSESSMENT PMHx: COPD; CAD; hypercholesterolemia; HTN; dementia; chronic-UTI; GERD; DM PT INTERACTION: Pt was awake and pleasant during nutrition assessment. Note pt has dementia, per chart review. Pt states current appetite is not good and has been this way for "a long time." Note pt has refused 1meal, per chart review. Pt states following a regular diet at home, and has no issues with chewing/swallowing food. Pt states no recent issues with nausea, vomiting, constipation, or diarrhea, and that her last BM was 11/25. Note pt not currently on bowel regimen per chart review. Pt states no recent wt changes. Note recent 10# wt gain x3w, per chart review. Pt states current DM management is "maybe it's good? could be better?" Note unable to determine recent HbA1c, per chart review. ABNORMAL NUTRITION-RELATED LAB VALUES LOW: K 3.5; Ca 8.2; Pro 6.1 HIGH: Cl 112; glu 145 Est. kcal needs: 1625 kcal | 20 kcal/kg Est. Pro needs: 64 g Pro | 0.8 g Pro/kg PES STATEMENT: Inadequate oral intake (NI-2.1) related to loss of appetite | confusion as evidenced by pt interview | chart review | Pt refused 1meal INTERVENTION: Continue with current diet order of CHO 60g/m 3snack diet. Add Glucerna (vary) to meals TID, for increased kcal intake. Provides 220 kcal and 10 g Pro per serving. Due to pt AMS, did not offer DM education at this time. Will attempt to offer again when family present. Encouraged pt to eat when able. Will continue to follow and reassess as pt needs, intake, and status change. MONITOR/EVALUATE: PO Intake; Plan of Care; Hydration Status; Weight Status; Lab Values Evelio Workman, MS, RD, LD
[2019-11-27 11:00] VITALS: BP 93/52
[2019-11-27 12:00] VITALS: BP 183/92
[2019-11-27] MEDS ORDERED: CEFD300C3 PO (12:27)
[2019-11-27] MEDS ORDERED: FLUC200T PO (12:27)
--- NOTE | 2019-11-27 12:43 | NUR ---
CM/SS visited with the patient for discharge planning. Plan: The patient will discharge back to [facility] with part B Medicare PT. CM/SS visited with the patient. She appeared to have confusion and seemed to have difficulty tracking and answering questions accurately. CM/SS informed the patient that she will be discharging back to facility today. The physician spoke with the patient's DPOA to inform her of patient's discharge and answer questions. CM/SS contacted [facility] and spoke with the DON to set up discharge and transportation. Planned machine operator hop picker time for 2:00 p.m. today 11/26. CM/SS will fax discharge orders and clinical to facility. No further needs.
--- NOTE | 2019-11-27 13:39 | Discharge Summary ---
Discharge Summary Hospital Course Was the Problem List Reviewed?: Yes Hospital Course Date of Admission: Nov 26, 2019 at 18:50 Admission Diagnosis : UTI Family Physician/Provider: Alfonso Benavides MD Date of Discharge: 11/27/19 Discharge Diagnosis: UTI, dementia, debility, frequent falls Hospital Course: Latonia Chou is a 69-year-old female who presented from [facility] with confusion and falls. Her lab workup revealed a urinalysis consistent with UTI. She was started on antibiotics. She was transitioned to oral Omnicef on discharge. She was also given a course of fluconazole for yeast infection. Her falls without to be due to debility and she was prescribed physical therapy on discharge. Her confusion appears to be chronic and due to dementia. She needs to undergo a cognitive evaluation at PCP follow-up. She needs to establish care with a new primary care physician. Her qssbdupy-tq-rgc/POA states that they have the and the process to get her in with Dr. Kumari at [facility]. Her course is complicated by a mild acute kidney injury which resolved with IV fluid resuscitation. She was discharged back to the [facility] in stable condition. Labs and Pending Lab Test: Laboratory Tests 11/26/19 17:05: White Blood Count 6.3, Red Blood Count 4.31L, Hemoglobin 12.9, Hematocrit 38, Mean Corpuscular Volume 88, Mean Corpuscular Hemoglobin 30, Mean Corpuscular Hemoglobin Concent 34, Red Cell Distribution Width 16.4H, Platelet Count 203, Mean Platelet Volume 8.9, Neutrophils (%) (Auto) 67, Lymphocytes (%) (Auto) 21, Monocytes (%) (Auto) 10, Eosinophils (%) (Auto) 2, Basophils (%) (Auto) 0, Neutrophils # (Auto) 4.3, Lymphocytes # (Auto) 1.3, Monocytes # (Auto) 0.7, Eosinophils # (Auto) 0.1, Basophils # (Auto) 0.0, Prothrombin Time 13.8, INR Comment 1.0, Activated Partial Thromboplast Time 34, Sodium Level 141, Potassium Level 3.7, Chloride Level 108H, Carbon Dioxide Level 19L, Anion Gap 14, Blood Urea Nitrogen 18, Creatinine 1.25, Estimat Glomerular Filtration Rate 42, BUN/Creatinine Ratio 14, Glucose Level 183H, Lactic Acid Level 1.18, Calcium Level 9.4, Corrected Calcium 9.2, Total Bilirubin 0.6, Aspartate Amino Transf (AST/SGOT) 24, Alanine Aminotransferase (ALT/SGPT) 35, Alkaline Phosphatase 59, Total Protein 7.3, Albumin 4.2 11/26/19 17:30: Urine Color YELLOW, Urine Clarity CLEAR, Urine pH 6.0, Urine Specific [place] >=1.030, Urine Protein TRACEH, Urine Glucose (UA) NEGATIVE, Urine Ketones NEGATIVE, Urine Nitrite NEGATIVE, Urine Bilirubin NEGATIVE, Urine Urobilinogen 0.2, Urine Leukocyte Esterase 1+H, Urine RBC (Auto) NEGATIVE, Urine RBC NONE, Urine WBC 10-25H, Urine Squamous Epithelial Cells NONE, Urine Crystals NONE, Urine Bacteria NEGATIVE, Urine Casts NONE, Urine Mucus NEGATIVE, Urine Yeast LARGEH, Urine Culture Indicated YES 11/26/19 20:50: Glucometer 164H 11/27/19 05:28: White Blood Count 5.5, Red Blood Count 3.81L, Hemoglobin 11.0L, Hematocrit 34L, Mean Corpuscular Volume 89, Mean Corpuscular Hemoglobin 29, Mean Corpuscular Hemoglobin Concent 33, Red Cell Distribution Width 16.2H, Platelet Count 178, Mean Platelet Volume 9.5, Neutrophils (%) (Auto) 73, Lymphocytes (%) (Auto) 16, Monocytes (%) (Auto) 9, Eosinophils (%) (Auto) 2, Basophils (%) (Auto) 0, Neutrophils # (Auto) 4.0, Lymphocytes # (Auto) 0.9L, Monocytes # (Auto) 0.5, Eosinophils # (Auto) 0.1, Basophils # (Auto) 0.0, Sodium Level 144, Potassium Level 3.5L, Chloride Level 112H, Carbon Dioxide Level 19L, Anion Gap 13, Blood Urea Nitrogen 11, Creatinine 0.87, Estimat Glomerular Filtration Rate > 60, BUN/Creatinine Ratio 13, Glucose Level 145H, Calcium Level 8.2L, Corrected Calcium 8.6, Total Bilirubin 0.4, Aspartate Amino Transf (AST/SGOT) 19, Alanine Aminotransferase (ALT/SGPT) 28, Alkaline Phosphatase 49, Total Protein 6.1L, Albumin 3.5 11/27/19 05:38: Glucometer 147H 11/27/19 11:22: Glucometer 211H Home Meds Active Diflucan (Fluconazole) 200 Mg Tablet 200 Mg PO DAILY 7 Days Cefdinir 300 Mg Capsule 300 Mg PO BID 4 Days Reported Vitamin D3 (Cholecalciferol (Vitamin D3)) 125 Mcg Capsule 125 Mcg PO DAILY Victoza 3-Filipe (Liraglutide) 0.6 Mg/0.1 Ml Pen.injctr 1.8 Mg SC DAILY Tylenol (Acetaminophen) 325 Mg Capsule 650 Mg PO Q6H PRN Tresiba Flextouch U-100 (Insulin Degludec) 100 Unit/1 Ml Insuln.pen 50 Units SC DAILY Tradjenta (Linagliptin) 5 Mg Tablet 5 Mg PO DAILY Seroquel (Quetiapine Fumarate) 25 Mg Tablet 25 Mg PO BID Pregabalin 75 Mg Capsule 75 Mg PO BID Pepto-Bismol (Bismuth Subsalicylate) 262 Mg Tablet 524 Mg PO Q8H PRN Novolog Flexpen (Insulin Aspart) 300 Units/3 Ml Solution Units SC TIDAC SLIDING SCALE: BS 60-150=0 UNITS 151-200=4 UNITS 201-250=6 UNITS 251-300=8 UNITS 301-350=10 UNITS 351-400=12 UNITS- IF 12 UNITS ARE GIVEN CALL PHYSICAN Meclizine HCl 25 Mg Tablet 25 Mg PO Q12H PRN Ferrous Sulfate 325 Mg Tablet 325 Mg PO DAILY Hydrocodone-Acetamin 5-325 mg (Hydrocodone/Acetaminophen) 1 Each Tablet 1 Ea PO Q8H PRN Cyanocobalamin Injection (Cyanocobalamin) 1,000 Mcg/Ml Inj 1,000 Mcg IM MONTHLY Xanax (Alprazolam) 1 Mg Tablet 1 Mg PO HS Alprazolam 0.5 Mg Tablet 0.5 Mg PO DAILY 7 Days Aspirin 81 Mg Tab.chew 81 Mg PO DAILY Bupropion Xl (Bupropion HCl) 300 Mg Tab.er.24h 300 Mg PO DAILY Amlodipine Besylate 5 Mg Tablet 2.5 Mg PO DAILY TAKES OF A 5MG TAB HOLD IF SYSTOLIC IS <100 OR IF DIASTOLIC <60. CALL PHYSICIAN IF BP IS >180/100 Pantoprazole Sodium 40 Mg Tablet.dr 40 Mg PO DAILY Glimepiride 4 Mg Tablet 4 Mg PO DAILY Assessment/Pt Instructions Take medications as prescribed. Establish care at [facility]. She will need to undergo a dementia evaluation. Discharge Planning: <30 minutes discharge planning Discharge Instructions Discharge Diet: No Restrictions Activity as Tolerated: Yes Discharge Physical Examination Vital Signs Vital Signs Date Time Temp Pulse Resp B/P (MAP) Pulse Ox O2 Delivery O2 Flow Rate FiO2 11/27/19 12:00 36.2 110 18 183/92 (122) 95 Room Air General Appearance: No Apparent Distress, Chronically ill, Obese HEENT: PERRL/EOMI, Pharynx Normal Respiratory: Lungs Clear, Normal Breath Sounds, No Respiratory Distress Cardiovascular: Regular Rate, Rhythm, No Edema, No Murmur Gastrointestinal: Normal Bowel Sounds, Non Tender, Soft Extremity: Normal Inspection, Non Tender, No Pedal Edema Skin: Normal Color, Warm/Dry Neurologic/Psychiatric: Alert, No Motor/Sensory Deficits, Disoriented Allergies: Coded Allergies: Tetanus Vaccines and Toxoid (Unverified Allergy, Severe, 12/17/11) SWOLLEN HOT RED ARM ampicillin (Unverified Allergy, Unknown, 12/20/15) Copy Copies To 1: KAVON KUMARI MD Discharge Summary Date of Admission Nov 26, 2019 at 18:50 Date of Discharge Discharge Date: Nov 27, 2019 Discharge Time: 13:26 Admission Diagnosis Urinary tract infection Discharge Diagnosis (1) Dementia Status: Chronic Qualifiers: Qualified Codes: G30.1 - Alzheimer's disease with late onset; F02.81 - Dem entia in other diseases classified elsewhere with behavioral disturbance (2) Debility Status: Acute (3) Falls frequently Status: Acute (4) UTI (urinary tract infection) Status: Acute Qualifiers: Qualified Codes: N30.00 - Acute cystitis without hematuria Clinical Quality Measures DVT/VTE Risk/Contraindication: Risk Factor Score Per Nursin RFS Level Per Nursing on Admit: 4+=Very High SILVINO STATON MD Nov 27, 2019 13:15
[2019-11-27 14:30] VITALS: BP 183/92
--- NOTE | 2019-12-01 14:28 | Physician Query Clarification ---
PQ-Conflicting Diagnosis Admission/Discharge Admission Date: Nov 26, 2019 at 18:50 Discharge Date: Nov 27, 2019 at 14:30 Dr. Staton, The medical record reflects the following clinical scenario: History/Risk Factors: UTI, AMS, dementia, diabetic neuropathy Clinical Findings: T36.8, P 116, WBC 6.3, Lactic acid 1.18 Treatment: IV Vancomycin, IV Levofloxacin, IV Ceftriaxone, IV fluids Question: Do you agree with the impression of the Sepsis per Dr. Trujillo. Please document a response in Progress Note or Discharge Summary. 1. Yes 2. No 3. Other, with explanation of clinical findings 4. Clinically undetermined, no explanation for clinical findings. PHYSICIAN RESPONSE Do you agree w/Consulting Dx?: No Please remember a lack of response to the above will prompt a phone page by CDI/Coding staff. In responding to this query, please exercise your independent professional judgment. The purpose of this communication is to more accurately reflect the complexity of your patients condition. The fact that a question is asked does not imply that any particular answer is desired or expected. Thank you for your timely response to this clarification. Requestors name: [email or web address] THIS PHYSICIAN QUERY FORM IS A PERMANENT PART OF THE MEDICAL RECORD ARABELLA RAHMAN Dec 01, 2019 14:28 SILVINO STATON MD Dec 11, 2019 17:01
== END 2019-11-27 14:30 | DRG 758 ==
LOC: EDUNIT# 16:48 → ER 16:49 → 4TH 18:50
PROVIDERS: ADMIT Internal Medicine; ATTEND Internal Medicine
DX: B37.49 Other urogenital candidiasis (principal); N17.9 Acute kidney failure, unspecified; F05 Delirium due to known physiological condition; F03.90 Unspecified dementia, unspecified severity, without behavioral disturbance, psychotic disturbance, mood disturbance, and anxiety; E11.40 Type 2 diabetes mellitus with diabetic neuropathy, unspecified; F17.210 Nicotine dependence, cigarettes, uncomplicated; J44.9 Chronic obstructive pulmonary disease, unspecified; I25.10 Atherosclerotic heart disease of native coronary artery without angina pectoris; Z66 Do not resuscitate; E78.00 Pure hypercholesterolemia, unspecified; K21.9 Gastro-esophageal reflux disease without esophagitis; M81.0 Age-related osteoporosis without current pathological fracture; F41.9 Anxiety disorder, unspecified; Z79.4 Long term (current) use of insulin; Z91.81 History of falling
CPT/HCPCS: 36415; 51701; 70450; 71045; 72125; 80053; 81000; 82962; 83605; 85025; 85610; 85730; 87040; 87088; 96361; 96374

== ENCOUNTER → 2020-08-11 | Outpatient (CLI) | payer MEDICARE, MEDICAID ==
[~2020-08-11] MED LIST changes: +ACET325C7 PO; -ALEN70TA5 PO; +ALEN70TA80 PO; +ALPR1TAB2 PO; +AMLO-250 PO; -AMLO5TAB9 PO; +ASPI-999 PO; +BISM262T19 PO; +CHOL500049 PO; +CHOL500050 PO; +CNC1KV IM; +FERR325T18 PO; +FLUC200T PO; -GEMF600T8 PO; +GEMF600T88 PO; +INSU100I14 SC; +LIRA0.6P3 SC; -PANT40TA3 PO; +PANT40TA52 PO; +PREG75CA75 PO; +QUET25TA PO; +QUET25TA34 PO; -QUET25TA73 PO
== END ==
LOC: WOUNDCARE 13:28
PROVIDERS: ATTEND Surgery
DX: L97.211 Non-pressure chronic ulcer of right calf limited to breakdown of skin (principal); L97.221 Non-pressure chronic ulcer of left calf limited to breakdown of skin; I89.0 Lymphedema, not elsewhere classified; E11.622 Type 2 diabetes mellitus with other skin ulcer; B35.4 Tinea corporis; R21 Rash and other nonspecific skin eruption
CPT/HCPCS: 99213

== ENCOUNTER → 2020-08-18 | Outpatient (CLI) | payer MEDICARE, MEDICAID | LOC: WOUNDCARE 12:44 | PROVIDERS: ATTEND Surgery | DX: I89.0 Lymphedema, not elsewhere classified (principal); E11.622 Type 2 diabetes mellitus with other skin ulcer; B35.4 Tinea corporis; L03.115 Cellulitis of right lower limb; L03.116 Cellulitis of left lower limb; I73.9 Peripheral vascular disease, unspecified; R21 Rash and other nonspecific skin eruption | CPT/HCPCS: 99213 ==

== ENCOUNTER → 2020-08-25 | Outpatient (CLI) | payer MEDICARE, MEDICAID | LOC: WOUNDCARE 12:52 | PROVIDERS: ATTEND Surgery | DX: E11.622 Type 2 diabetes mellitus with other skin ulcer (principal); I73.9 Peripheral vascular disease, unspecified; I89.0 Lymphedema, not elsewhere classified; B35.4 Tinea corporis | CPT/HCPCS: 99212 ==

== ENCOUNTER 2020-09-03 13:32 | Emergency (ER) | payer MEDICARE, MEDICAID ==
[~2020-09-03] VITALS: Ht 165 cm; Wt 75.7 kg
[2020-09-03 13:39] VITALS: BP 126/72
--- NOTE | 2020-09-03 13:49 | ED Syncope ---
General Chief Complaint: Dizziness/Syncope Stated Complaint: SYNCOPE Source of Information: Patient, EMS, Intermediate Records Exam Limitations: No Limitations History of Present Illness Date Seen by Provider: September 03, 2020 Time Seen by Provider: 13:40 Initial Comments To ER by EMS from [facility] where she resides and has lived for the past 1-1/2 years. She was outside smoking when she suddenly became limp and unconscious. The senior care nurse noticed her right hand to be weaker than the left. She was incontinent of bowel and bladder and she did vomit. Upon EMS arrival she was alert and oriented moving all extremities without weakness. Her blood sugar was 160. She reports that this has happened once before about 2 years ago. States immediately upon arrival here that she needs to have a BM. Timing/Prior Episodes: Remote History Symptoms Prior to Episode: None Precipitating Factors: None Loss of Consciousness: No Loss of Consciousness Current Symptoms: Back to Normal; No Blurred Vision, No Chest Pain, No Headache, No Injury, No Lightheadedness; Loss of Bladder Control, Loss of Bowel Control; No Motionless, No Nausea, No Pale, No Shallow/Rapid Breathing, No Weak/Absent Pulse, No Weakness Allergies and Home Medications Allergies Coded Allergies: Tetanus Vaccines and Toxoid (Unverified Allergy, Severe, 12/17/11) SWOLLEN HOT RED ARM ampicillin (Unverified Allergy, Unknown, 12/20/15) Home Medications Acetaminophen 325 Mg Capsule, 650 MG PO Q6H PRN for PAIN-MILD (1-4), (Reported) Alprazolam 0.5 Mg Tablet, 0.5 MG PO DAILY, (Reported) Alprazolam 1 Mg Tablet, 1 MG PO HS, (Reported) Amlodipine Besylate 5 Mg Tablet, 2.5 MG PO DAILY, (Reported) TAKES OF A 5MG TAB HOLD IF SYSTOLIC IS <100 OR IF DIASTOLIC <60. CALL PHYSICIAN IF BP IS >180/100 Aspirin 81 Mg Tab.chew, 81 MG PO DAILY, (Reported) Bismuth Subsalicylate 262 Mg Tablet, 524 MG PO Q8H PRN for UPSET STOMACH, (Reported) Bupropion HCl 300 Mg Tab.er.24h, 300 MG PO DAILY, (Reported) Cefdinir 300 Mg Capsule, 300 MG PO BID Prescribed by: SILVINO STATON on 11/27/19 1227 Cholecalciferol (Vitamin D3) 125 Mcg Capsule, 125 MCG PO DAILY, (Reported) Cyanocobalamin 1,000 Mcg/Ml Inj, 1,000 MCG IM MONTHLY, (Reported) Ferrous Sulfate 325 Mg Tablet, 325 MG PO DAILY, (Reported) Fluconazole 200 Mg Tablet, 200 MG PO DAILY Prescribed by: SILVINO STATON on 11/27/19 1227 Glimepiride 4 Mg Tablet, 4 MG PO DAILY, (Reported) Hydrocodone/Acetaminophen 1 Each Tablet, 1 EA PO Q8H PRN for PAIN-MODERATE (5- 7), (Reported) Insulin Aspart 300 Units/3 Ml Solution, UNITS SC TIDAC, (Reported) SLIDING SCALE: BS 60-150=0 UNITS 151-200=4 UNITS 201-250=6 UNITS 251-300=8 UNITS 301-350=10 UNITS 351-400=12 UNITS- IF 12 UNITS ARE GIVEN CALL PHYSICAN Insulin Degludec 100 Unit/1 Ml Insuln.pen, 50 UNITS SC DAILY, (Reported) Linagliptin 5 Mg Tablet, 5 MG PO DAILY, (Reported) Liraglutide 0.6 Mg/0.1 Ml Pen.injctr, 1.8 MG SC DAILY, (Reported) Meclizine HCl 25 Mg Tablet, 25 MG PO Q12H PRN for DIZZINESS, (Reported) Pantoprazole Sodium 40 Mg Tablet.dr, 40 MG PO DAILY, (Reported) Pregabalin 75 Mg Capsule, 75 MG PO BID, (Reported) Quetiapine Fumarate 25 Mg Tablet, 25 MG PO BID, (Reported) Patient Home Medication List Home Medication List Reviewed: Yes Review of Systems Constitutional: see HPI EENTM: see HPI Respiratory: no symptoms reported Cardiovascular: No chest pain, No palpitations; syncope Genitourinary: no symptoms reported Musculoskeletal: no symptoms reported Skin: no symptoms reported Psychiatric/Neurological: No Symptoms Reported Past Jdbhkdd-Neflnk-Neximd Hx Patient Social History Type Used: Cigarettes 2nd Hand Smoke Exposure: Yes Recent Hopitalizations: No Immunizations Up To Date Tetanus Booster (TDap): Unknown PED Vaccines UTD: No Date of Pneumonia Vaccine: Dec 04, 2014 Date of Influenza Vaccine: Nov 05, 2018 Seasonal Allergies Seasonal Allergies: No Past Medical History Surgeries: Yes (PT CANNOT RECALL) Hysterectomy, Vascular Surgery Respiratory: Yes COPD Currently Using CPAP: No Currently Using BIPAP: No Cardiac: Yes Coronary Artery Disease, High Cholesterol, Hypertension, Peripheral Vascular Neurological: Yes Dementia, Neuropathy 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 Disorders: No 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 Genitourinary: Yes UTI-Chronic Gastrointestinal: Yes Gastroesophageal Reflux Musculoskeletal: Yes (NONDISPLACED TRANSVERSE FX OF RIGHT FIBULAR SHAFT 04/11/19) Degenerate Disk Disease, Osteoporosis Endocrine: Yes Diabetes, Insulin dep HEENT: No (dysarthria anarthria) Cataract Loss of Vision: Denies Cancer: No Psychosocial: Yes (DELUSIONAL DISORDER) Anxiety Integumentary: No Blood Disorders: No Family Medical History Arthritis G8 SISTER G8 SISTER Cataracts 19 MOTHER Diabetes mellitus G8 SISTER FH: COPD (chronic obstructive pulmonary disease) 19 MOTHER FH: CVA (cerebrovascular accident) 19 FATHER FH: heart attack 19 FATHER Glaucoma 19 MOTHER Hypercholesterolemia 19 FATHER Hypertension 19 FATHER No Pertinent Family Hx Physical Exam Vital Signs Vital Signs - First Documented 09/03/20 13:39 Temp 36.1 Pulse 101 Resp 16 B/P (MAP) 126/72 (90) Pulse Ox 93 O2 Delivery Room Air Capillary Refill : Height, Weight, BMI Height: 5'5.00" Weight: 164lbs. 6.4oz. 74.458011ni; 29.75 BMI Method:Stated General Appearance: No Apparent Distress, WD/WN, Other (Certain oriented laughing talking well appearing. She states she feels fine other than being hungry.) HEENT: PERRL/EOMI, TMs Normal Neck: Full Range of Motion, Normal Inspection Respiratory: No Accessory Muscle Use, No Respiratory Distress Extremities: Normal Capillary Refill, Normal Inspection Neurologic/Psychiatric: Alert, Oriented x3, No Motor/Sensory Deficits Cranial Nerves: Normal Hearing, Normal Speech, PERRL Coordination/Gait: Normal Finger to Nose, Normal Gait Skin: Normal Color, Warm/Dry At this time (1350), her NIH score is 0 Progress/Results/Core Measures Results/Orders Lab Results Laboratory Tests Test 09/03/20 14:12 09/03/20 14:19 09/03/20 15:30 Range/Units White Blood Count 10.7 4.3-11.0 10^3/uL Red Blood Count 4.52 3.80-5.11 10^6/uL Hemoglobin 13.0 11.5-16.0 g/dL Hematocrit 39 35-52 % Mean Corpuscular Volume 87 80-99 fL Mean Corpuscular Hemoglobin 29 25-34 pg Mean Corpuscular Hemoglobin Concent 33 32-36 g/dL Red Cell Distribution Width 15.1 H 10.0-14.5 % Platelet Count 203 130-400 10^3/uL Mean Platelet Volume 9.4 9.0-12.2 fL Immature Granulocyte % (Auto) 1 % Neutrophils (%) (Auto) 62 42-75 % Lymphocytes (%) (Auto) 26 12-44 % Monocytes (%) (Auto) 8 0-12 % Eosinophils (%) (Auto) 2 0-10 % Basophils (%) (Auto) 1 0-10 % Neutrophils # (Auto) 6.6 1.8-7.8 10^3/uL Lymphocytes # (Auto) 2.8 1.0-4.0 10^3/uL Monocytes # (Auto) 0.9 0.0-1.0 10^3/uL Eosinophils # (Auto) 0.3 0.0-0.3 10^3/uL Basophils # (Auto) 0.1 0.0-0.1 10^3/uL Immature Granulocyte # (Auto) 0.1 0.0-0.1 10^3/uL Prothrombin Time 13.8 12.2-14.7 SEC INR Comment 1.0 0.8-1.4 Activated Partial Thromboplast Time 29 24-35 SEC D-Dimer 0.89 H 0.00-0.49 UG/ML Sodium Level 143 135-145 MMOL/L Potassium Level 3.6 3.6-5.0 MMOL/L Chloride Level 99 98-107 MMOL/L Carbon Dioxide Level 30 21-32 MMOL/L Anion Gap 14 5-14 MMOL/L Blood Urea Nitrogen 18 7-18 MG/DL Creatinine 1.24 0.60-1.30 MG/DL Estimat Glomerular Filtration Rate 43 BUN/Creatinine Ratio 15 Glucose Level 148 H 70-105 MG/DL Calcium Level 9.3 8.5-10.1 MG/DL Corrected Calcium 9.4 8.5-10.1 MG/DL Total Bilirubin 0.4 0.1-1.0 MG/DL Aspartate Amino Transf (AST/SGOT) 14 5-34 U/L Alanine Aminotransferase (ALT/SGPT) 11 0-55 U/L Alkaline Phosphatase 55 40-136 U/L Troponin I < 0.028 <0.028 NG/ML Total Protein 7.2 6.4-8.2 GM/DL Albumin 3.9 3.2-4.5 GM/DL Glucometer 168 H 70-110 MG/DL Urine Color YELLOW Urine Clarity CLEAR Urine pH 6.5 5-9 Urine Specific [place] 1.015 L 1.016-1.022 Urine Protein NEGATIVE NEGATIVE Urine Glucose (UA) NEGATIVE NEGATIVE Urine Ketones NEGATIVE NEGATIVE Urine Nitrite NEGATIVE NEGATIVE Urine Bilirubin NEGATIVE NEGATIVE Urine Urobilinogen 0.2 < = 1.0 MG/DL Urine Leukocyte Esterase NEGATIVE NEGATIVE Urine RBC (Auto) 2+ H NEGATIVE Urine RBC RARE /HPF Urine WBC RARE /HPF Urine Crystals NONE /LPF Urine Bacteria TRACE /HPF Urine Casts NONE /LPF Urine Mucus NEGATIVE /LPF Urine Culture Indicated NO My Orders Orders - JESSICA BERNSTEIN APRN Cbc With Automated Diff (09/03/20 13:40) Protime With Inr (09/03/20 13:40) Partial Thromboplastin Time (09/03/20 13:40) Comprehensive Metabolic Panel (09/03/20 13:40) Fibrin Degradation Products (09/03/20 13:40) Troponin I (09/03/20 13:40) Ua Culture If Indicated (09/03/20 13:40) Chest 1 View, Ap/Pa Only (09/03/20 13:40) Ekg Tracing (09/03/20 13:40) Nothing By Mouth (09/03/20 Lunch) Accucheck Stat ONCE (09/03/20 13:40) Ed Iv/Invasive Line Start (09/03/20 13:40) Ed Iv/Invasive Line Start (09/03/20 13:40) Vital Signs Stroke Patient Q15M (09/03/20 13:40) Ct Head Wo-R/O Stroke (09/03/20 13:40) O2 (09/03/20 13:40) Intake & Output 06,14,22 (09/03/20 13:40) Monitor-Rhythm Ecg Trace Only (09/03/20 13:40) Dysphagia Screening Tool (09/03/20 13:40) Post Thrombolytic Adminstratio (09/03/20 13:40) Lipid Panel (09/04/20 06:00) Vital Signs/I&O 09/03/20 13:39 Temp 36.1 Pulse 101 Resp 16 B/P (MAP) 126/72 (90) Pulse Ox 93 O2 Delivery Room Air Departure Communication (Admissions) Given her reported strong urge to have a bm, vasovagal syncope is possibile. 1637-remains alert. Very talkative and pleasant. NIH remains 0. Impression Primary Impression: Syncope Disposition: 01 HOME, SELF-CARE Condition: Stable Departure-Patient Inst. Decision time for Depature: 15:02 Referrals: RACHEL BAKER MD (PCP/Family) Primary Care Physician Patient Instructions: Vasovagal Response JESSICA BERNSTEIN MANAGER METROLOGY September 03, 2020 13:49
[2020-09-03 14:22] LABS: BASOPHILS # (AUTO) 0.1 10^3/uL (0.0-0.1); BASOPHILS % (AUTO) 1 % (0-10); EOSINOPHILS # (AUTO) 0.3 10^3/uL (0.0-0.3); EOSINOPHILS % (AUTO) 2 % (0-10); HEMATOCRIT 39 % (35-52); LYMPHOCYTES # (AUTO) 2.8 10^3/uL (1.0-4.0); LYMPHOCYTES % (AUTO) 26 % (12-44); MEAN CORPUSCULAR HEMOGLOBIN 29 pg (25-34); MEAN CORPUSCULAR HGB CONC 33 g/dL (32-36); MEAN CORPUSCULAR VOLUME 87 fL (80-99); MEAN PLATELET VOLUME 9.4 fL (9.0-12.2); MONOCYTES # (AUTO) 0.9 10^3/uL (0.0-1.0); MONOCYTES % (AUTO) 8 % (0-12); NEUTROPHILS # (AUTO) 6.6 10^3/uL (1.8-7.8); NEUTROPHILS % (AUTO) 62 % (42-75); PLATELET COUNT 203 10^3/uL (130-400); WHITE BLOOD COUNT 10.7 10^3/uL (4.3-11.0)
[2020-09-03 14:32] LABS: ALBUMIN 3.9 GM/DL (3.2-4.5); CHLORIDE 99 MMOL/L (98-107); POTASSIUM 3.6 MMOL/L (3.6-5.0); SODIUM 143 MMOL/L (135-145)
[2020-09-03 14:33] LABS: CALCIUM 9.3 MG/DL (8.5-10.1)
[2020-09-03 14:34] LABS: FIBRIN DEGRADATION PRODUCTS 0.89 UG/ML (0.00-0.49); GLUCOSE 148 MG/DL (70-105); PROTHROMBIN TIME PATIENT 13.8 SEC (12.2-14.7); TOTAL PROTEIN 7.2 GM/DL (6.4-8.2)
[2020-09-03 14:35] LABS: CARBON DIOXIDE 30 MMOL/L (21-32)
[2020-09-03 14:36] LABS: BILIRUBIN,TOTAL 0.4 MG/DL (0.1-1.0)
[2020-09-03 14:38] LABS: ALKALINE PHOSPHATASE 55 U/L (40-136); CREATININE SERUM 1.24 MG/DL (0.60-1.30); GFR ESTIMATED 43
[2020-09-03 14:39] LABS: BUN/CREATININE RATIO 15
[2020-09-03 14:41] LABS: ALANINE AMINOTRANSFERASE 11 U/L (0-55)
--- NOTE | 2020-09-03 14:50 | Diagnostic Imaging Report ---
PROCEDURE: CT head wo r/o stroke. TECHNIQUE: Multiple contiguous axial images were obtained through the brain without the use of intravenous contrast. Auto Exposure Controls were utilized during the CT exam to meet ALARA standards for radiation dose reduction. INDICATION: Syncopal episode. CORRELATION is made with head CT from 11/26/2019. The ventricles and sulci are prominent consistent with cerebral atrophy. There is no sulcal effacement or midline shift. No acute intra-axial or extra-axial hemorrhage is detected. Cisterns are patent. Visualized paranasal sinuses are clear. IMPRESSION: Cerebral atrophy. No acute intracranial process is detected. Dictated by: Dictated on workstation # [id number]
--- NOTE | 2020-09-03 14:50 | Diagnostic Imaging Report ---
INDICATION: Syncopal episode. TIME OF EXAM: 2:11 PM CORRELATION is made with prior chest from 11/26/2019. FINDINGS: The heart size is normal. The pulmonary vascularity is unremarkable. The lungs are clear. No infiltrate, effusion or pneumothorax is detected. IMPRESSION: No acute cardiopulmonary process is detected. Dictated by: Dictated on workstation # [id number]
[2020-09-03 15:37] LABS: BILIRUBIN,URINE NEGATIVE (NEGATIVE); CLARITY,URINE CLEAR; COLOR,URINE YELLOW; GLUCOSE, URINE (UA) NEGATIVE (NEGATIVE); KETONES,URINE NEGATIVE (NEGATIVE); LEUKOCYTE ESTERASE ,URINE NEGATIVE (NEGATIVE); NITRITE,URINE NEGATIVE (NEGATIVE); PH,URINE 6.5 (5-9); PROTEIN,URINE NEGATIVE (NEGATIVE)
[2020-09-03 15:42] LABS: BACTERIA,URINE TRACE /HPF; RBC,URINE RARE /HPF; WBC,URINE RARE /HPF
[2020-09-03 16:43] VITALS: BP 170/93
== END 2020-09-03 16:43 | disposition home or self-care (01) ==
LOC: EDUNIT# 13:32 → ER 13:33
DX: R55 Syncope and collapse (principal); J44.9 Chronic obstructive pulmonary disease, unspecified; I25.10 Atherosclerotic heart disease of native coronary artery without angina pectoris; I10 Essential (primary) hypertension; K21.9 Gastro-esophageal reflux disease without esophagitis; F41.9 Anxiety disorder, unspecified; E11.9 Type 2 diabetes mellitus without complications; Z88.1 Allergy status to other antibiotic agents; Z88.7 Allergy status to serum and vaccine; Z77.22 Contact with and (suspected) exposure to environmental tobacco smoke (acute) (chronic); Z79.4 Long term (current) use of insulin; Z79.82 Long term (current) use of aspirin; Z79.899 Other long term (current) drug therapy
CPT/HCPCS: 36415; 70450; 71045; 80053; 81000; 82947; 84484; 85025; 85379; 85610; 85730; 93005; 93041

== ENCOUNTER → 2020-09-08 | Outpatient (CLI) | payer MEDICARE, MEDICAID | LOC: WOUNDCARE 12:44 | PROVIDERS: ATTEND Surgery | DX: I89.0 Lymphedema, not elsewhere classified (principal); B35.4 Tinea corporis; I73.9 Peripheral vascular disease, unspecified | CPT/HCPCS: 99212 ==

== ENCOUNTER 2021-06-16 05:34 | Outpatient (CLI) | payer MEDICARE, MEDICAID ==
[~2021-06-16] VITALS: Ht 157.5 cm; Wt 83.8 kg
[~2021-06-16 05:34] MED LIST changes: +BISO-2 PO; -BISO1TAB3 PO; -LEVO250T46 PO; +LVF250T PO; +ONDA-106 PO; -ONDA8TAB15 PO; -QUET25TA34 PO; +QUET25TA35 PO
[2021-06-21] MEDS ORDERED: INSU100V6 SQ (16:01)
[2021-06-21] MEDS ORDERED: PREG150C PO (16:01)
[2021-06-21] MEDS ORDERED: BUME2TAB7 PO (16:01)
[2021-06-21] MEDS ORDERED: DIVA125C PO (16:01)
[2021-06-21] MEDS ORDERED: LOPE-175 PO (16:01)
[2021-06-21] MEDS ORDERED: RT-ALBUINH IH (16:01)
[2021-06-21] MEDS ORDERED: OFL.3OP5 OP (16:01)
[2021-06-21] MEDS ORDERED: ACET-168 PO (16:01)
[2021-06-21] MEDS ORDERED: PANT20TA2 PO (16:01)
[2021-06-21] MEDS ORDERED: ROSU20TA32 PO (16:01)
[2021-06-21] MEDS ORDERED: METF-397 PO (16:01)
[2021-06-21] MEDS ORDERED: LOSA100T57 PO (16:01)
[2021-06-21] MEDS ORDERED: DICL100G13 TP (16:01)
[2021-06-21] MEDS ORDERED: BROM5DRO3 OP (16:01)
== END 2021-07-04 12:48 | disposition home or self-care (01) ==
LOC: PREOP 05:34
PROVIDERS: ATTEND Specialist
DX: Z01.818 Encounter for other preprocedural examination (principal)

== ENCOUNTER 2021-06-23 07:02 | Day surgery (SDC) | payer MEDICARE, MEDICAID ==
[~2021-06-23] VITALS: Ht 157 cm; Wt 83.8 kg
[~2021-06-23 07:02] MED LIST changes: +ACET-168 PO; +BROM5DRO3 OP; +BUME2TAB7 PO; +DICL100G13 TP; +DIVA125C PO; +INSU100V6 SQ; +LOPE-175 PO; +OFL.3OP5 OP; +PANT20TA2 PO; +PREG150C PO; +ROSU20TA32 PO; +RT-ALBUINH IH
[2021-06-23] MEDS: TETRACAINE 0.5% OPHTH SOLN 4 ML BTL (SINGLE DOSE ONLY) OU PRN ×4 (07:29→07:45)
[2021-06-23] MEDS ORDERED: LIDOCAINE PF 1% 2 ML VIAL IR PRN (07:30)
[2021-06-23] MEDS ORDERED: MOXIFLOXACIN OPHTH SOLN 5 MG/ML 0.3 ML SYRINGE OP ONE (07:30)
[2021-06-23] MEDS ORDERED: POVIDONE (BETADINE) OPHTH SOLN 5% 30 ML OP ONE (07:30)
[2021-06-23] MEDS ORDERED: TIMOLOL MALEATE 0.5% 5 ML (TIMOPTIC) BTL OU PRN (07:30)
[2021-06-23] MEDS: TROPICAMIDE 1% OPH SOLN (MYDRIACYL) 15 ML BTL OP SCH ×3 (07:35→07:45)
[2021-06-23] MEDS: PHENYLEPHRINE 10% OPHTH (NEO-SYN) 5 ML BTL OU SCH ×3 (07:35→07:45)
[2021-06-23 07:36] VITALS: BP 160/71
--- NOTE | 2021-06-23 08:17 | Ophthalmologist Pre-Op Note ---
Pre-Operative Progress Note H&P Reviewed The H&P was reviewed, patient examined and no changes noted. Date H&P Reviewed: Jun 23, 2021 Time H&P Reviewed: 08:17 Pre-Op Dx Cataract, Right Eye TATIANNA BLACK MD Jun 23, 2021 08:17
--- NOTE | 2021-06-23 08:31 | Ophthalmology Operative Report ---
Cataract removal/placement IOL PREOPERATIVE DIAGNOSIS: Cataract Right Eye POSTOPERATIVE DIAGNOSIS: Cataract Right Eye PROCEDURE: Cataract removal and placement of posterior chamber implant, right eye SURGEON: Clovis Black ANESTHESIA: Topical with sedation COMPLICATIONS: None ESTIMATED BLOOD LOSS: Minimal DESCRIPTION OF PROCEDURE: After proper informed consent was obtained, the patient, a 70 female, was taken to the Operating Room and the right eye was anesthetized with tetracaine. The right eye was then prepped and draped in the usual manner. A wire lid speculum was placed. A paracentesis was made at the left hand position. Preservative free lidocaine was injected into the anterior chamber followed by viscoelastic. A clear corneal incision was made in the temporal position. A capsulorrhexis was preformed and the central nuclear and cortical material were removed. The posterior capsule was polished and Maycol 17.5 AU00T0 IOL was placed into the capsular bag. The residual viscoelastic was aspirated and balanced saline solution was injected into the anterior chamber. Moxifloxacin was injected into the anterior chamber. The wound was checked and found to be water tight. The patient tolerated the procedure well without complications. CLOVIS BLACK MD Jun 23, 2021 08:31
[2021-06-23 08:40] VITALS: BP 148/76
[2021-06-23] MEDS ORDERED: acetaZOLAMIDE ER 500 MG CAP (DIAMOX SEQUELS) PO ONE (11:00)
--- NOTE | 2021-06-23 12:29 | Anesthesia-General Post-Op ---
MAC Patient Condition Mental Status/LOC: Same as Preop Cardiovascular: Satisfactory Nausea/Vomiting: Absent Respiratory: Satisfactory Pain: Controlled Complications: Absent Post Op Complications Complications None Follow Up Care/Instructions Patient Instructions None needed. Anesthesiology Discharge Order Discharge Order Patient is doing well, no complaints, stable vital signs, no apparent adverse anesthesia problems. No complications reported per nursing. SHANNAN BOWENS CRNA Jun 23, 2021 12:29
== END 2021-06-23 08:40 | disposition home or self-care (01) ==
LOC: SDC 07:02
PROVIDERS: ATTEND Specialist
DX: E11.36 Type 2 diabetes mellitus with diabetic cataract (principal); H25.9 Unspecified age-related cataract; Z79.4 Long term (current) use of insulin; Z79.84 Long term (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 of oral hypoglycemic drugs; Z66 Do not resuscitate
CPT/HCPCS: 66984; V2632

== ENCOUNTER 2021-07-07 08:00 | Day surgery (SDC) | payer MEDICARE, MEDICAID ==
[~2021-07-07] VITALS: Ht 157 cm; Wt 83.8 kg
[2021-07-07 08:15] VITALS: BP 171/72
[2021-07-07] MEDS ORDERED: POVIDONE (BETADINE) OPHTH SOLN 5% 30 ML OP ONE (08:15)
[2021-07-07] MEDS ORDERED: TIMOLOL MALEATE 0.5% 5 ML (TIMOPTIC) BTL OU PRN (08:15)
[2021-07-07] MEDS ORDERED: LIDOCAINE PF 1% 2 ML VIAL IR PRN (08:15)
[2021-07-07] MEDS ORDERED: MOXIFLOXACIN OPHTH SOLN 5 MG/ML 0.3 ML SYRINGE OP ONE (08:15)
[2021-07-07] MEDS: TETRACAINE 0.5% OPHTH SOLN 4 ML BTL (SINGLE DOSE ONLY) OU PRN ×4 (08:26→08:42)
[2021-07-07] MEDS: TROPICAMIDE 1% OPH SOLN (MYDRIACYL) 15 ML BTL OP SCH ×3 (08:32→08:42)
[2021-07-07] MEDS: PHENYLEPHRINE 10% OPHTH (NEO-SYN) 5 ML BTL OU SCH ×3 (08:32→08:42)
--- NOTE | 2021-07-07 09:11 | Ophthalmologist Pre-Op Note ---
Pre-Operative Progress Note H&P Reviewed The H&P was reviewed, patient examined and no changes noted. Date H&P Reviewed: Jul 07, 2021 Time H&P Reviewed: 09:10 Pre-Op Dx Cataract, Left Eye TATIANNA BLACK MD Jul 07, 2021 09:10
[2021-07-07] MEDS ORDERED: acetaZOLAMIDE ER 500 MG CAP (DIAMOX SEQUELS) PO ONE (09:30)
--- NOTE | 2021-07-07 09:40 | Ophthalmology Operative Report ---
Cataract removal/placement IOL PREOPERATIVE DIAGNOSIS: Cataract Left Eye POSTOPERATIVE DIAGNOSIS: Cataract Left Eye PROCEDURE: Cataract removal and placement of posterior chamber implant, left eye SURGEON: Clovis Black ANESTHESIA: Topical with sedation COMPLICATIONS: None ESTIMATED BLOOD LOSS: Minimal DESCRIPTION OF PROCEDURE: After proper informed consent was obtained, the patient, a 70 female, was taken to the Operating Room and the left eye was anesthetized with tetracaine. The left eye was then prepped and draped in the usual manner. A wire lid speculum was placed. A paracentesis was made at the left hand position. Preservative free lidocaine was injected into the anterior chamber followed by viscoelastic. A clear corneal incision was made in the temporal position. A capsulorrhexis was preformed and the central nuclear and cortical material were removed. The posterior capsule was polished and an Maycol 17.0 AU00T0 was placed into the capsular bag. The residual viscoelastic was aspirated and balanced saline solution was injected into the anterior chamber. Moxifloxacin was injected into the anterior chamber. The wound was checked and found to be water tight. The patient tolerated the procedure well without complications. CLOVIS BLACK MD Jul 07, 2021 09:40
[2021-07-07 09:44] VITALS: BP 170/72
--- NOTE | 2021-07-07 12:50 | Anesthesia-General Post-Op ---
MAC Patient Condition Mental Status/LOC: Same as Preop Cardiovascular: Satisfactory Nausea/Vomiting: Absent Respiratory: Satisfactory Pain: Controlled Complications: Absent Post Op Complications Complications None Follow Up Care/Instructions Patient Instructions None needed. Anesthesiology Discharge Order Discharge Order Patient is doing well, no complaints, stable vital signs, no apparent adverse anesthesia problems. No complications reported per nursing. SHANNAN BOWENS CRNA Jul 07, 2021 12:50
== END 2021-07-07 10:02 | disposition home or self-care (01) ==
LOC: SDC 08:00
PROVIDERS: ATTEND Specialist
DX: E11.36 Type 2 diabetes mellitus with diabetic cataract (principal); H25.9 Unspecified age-related cataract; Z79.4 Long term (current) use of insulin; Z79.84 Long term (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 of oral hypoglycemic drugs
CPT/HCPCS: 66984; V2632

== ENCOUNTER 2022-10-19 17:12 | Inpatient (IN) | payer MEDICARE, MEDICAID ==
[~2022-10-19] VITALS: Ht 165.1 cm; Wt 93.4 kg
[~2022-10-19 17:12] MED LIST changes: +ALBU8.5H6 IH; +LEVO250T66 PO; -LOSA100T57 PO; +LOSA100T58 PO; -LVF250T PO; -RT-ALBUINH IH
[2022-10-19 17:45] LABS: BASOPHILS % (AUTO) 0 % (0-10); EOSINOPHILS # (AUTO) 0.2 10^3/uL (0.0-0.3); EOSINOPHILS % (AUTO) 2 % (0-10); HEMATOCRIT 39 % (35-52); LYMPHOCYTES # (AUTO) 2.2 10^3/uL (1.0-4.0); LYMPHOCYTES % (AUTO) 26 % (12-44); MEAN CORPUSCULAR HEMOGLOBIN 28 pg (25-34); MEAN CORPUSCULAR HGB CONC 33 g/dL (32-36); MEAN CORPUSCULAR VOLUME 85 fL (80-99); MEAN PLATELET VOLUME 10.2 fL (9.0-12.2); MONOCYTES # (AUTO) 0.7 10^3/uL (0.0-1.0); MONOCYTES % (AUTO) 8 % (0-12); NEUTROPHILS # (AUTO) 5.5 10^3/uL (1.8-7.8); NEUTROPHILS % (AUTO) 63 % (42-75); PLATELET COUNT 143 10^3/uL (130-400); WHITE BLOOD COUNT 8.8 10^3/uL (4.3-11.0)
[2022-10-19] MEDS ORDERED: NS IV 500 ML 500 ML IV ONE (17:45)
[2022-10-19 17:48] LABS: PROTHROMBIN TIME PATIENT 13.5 SEC (12.2-14.7)
[2022-10-19 17:50] LABS: ALBUMIN 4.1 GM/DL (3.2-4.5); CHLORIDE 100 MMOL/L (98-107); POTASSIUM 4.3 MMOL/L (3.6-5.0); SODIUM 140 MMOL/L (135-145)
--- NOTE | 2022-10-19 17:50 | ED Neurological Problem ---
General Chief Complaint: Altered Mental Status Stated Complaint: AMS Nursing Triage Note: ARRIVED VIA EMS FROM FACILITY WITH ALTERED MENTAL STATUS. EMS REPORTS PT WENT OUTSIDE TO SMOKE AT APPX 1300 AND WHEN SHE CAME BACK SHE WAS NOT FEELING WELL. THEY CALLED EMS BECUAUSE SHE QUIT RESPONDING TO THEM VERBALLY. Source: patient, [facility] records Exam Limitations: clinical condition (MANNY TINEO MD) History of Present Illness Date Seen by Provider: Oct 19, 2022 Time Seen by Provider: 17:28 Initial Comments Here from nursing care facility with report of altered mental status. Apparently she had gone out to smoke at approximately 1 PM and when she came back she was not feeling well so they put her to bed. They woke her up later and she was not responding well. She was not answering questions and was not really moving well so EMS was summoned. No history of falls, fever or vomiting. EMS reports that vital signs were okay but she was not answering questions or following commands. Timing/Duration: 4-6 hours Severity: moderate Associated Symptoms: weakness (MANNY TINEO MD) Allergies and Home Medications Allergies Coded Allergies: Tetanus Vaccines and Toxoid (Unverified Allergy, Severe, 12/17/11) SWOLLEN HOT RED ARM ampicillin (Unverified Allergy, Unknown, 12/20/15) dulaglutide (Unverified Allergy, Unknown, 06/16/21) Patient Home Medication List Home Medication List Reviewed: Yes (MANNY TINEO MD) Home Medication List Reviewed: Yes (IVÁN PHILLIP MD) Acetaminophen (Acetaminophen Extra Strength) 500 Mg Tablet, 1,000 MG PO Q8H, (Reported) Entered as Reported by: NABEEL CHEEK on 06/21/21 1601 Albuterol Sulfate (Ventolin Hfa) 1 Puff Puff, 2 PUFF IH Q4H, (Reported) Entered as Reported by: NABEEL CHEEK on 06/21/21 1601 Aspirin (Aspirin) 81 Mg Tab.chew, 81 MG PO DAILY, (Reported) Entered as Reported by: PA PAUL on 11/27/19 0847 Bromfenac Sodium (Bromsite) 5 Ml Drops, 5 ML OP, (Reported) Entered as Reported by: NABEEL CHEEK on 06/21/21 1601 Bumetanide (Bumetanide) 2 Mg Tablet, 2 MG PO, (Reported) Entered as Reported by: NABEEL CHEEK on 06/21/21 160 Cholecalciferol (Vitamin D3) (Vitamin D3) 125 Mcg Capsule, 125 MCG PO DAILY, (Reported) Entered as Reported by: PA PAUL on 11/27/19 0852 Cyanocobalamin (Cyanocobalamin Injection) 1,000 Mcg/Ml Inj, 1,000 MCG IM MONTHLY, (Reported) Entered as Reported by: PA PAUL on 11/27/19 08 Diclofenac Sodium (Diclofenac Sodium) Unknown Strength Gel..gram., Unknown Dose TP, (Reported) Entered as Reported by: NABEEL CHEEK on 06/21/21 160 Divalproex Sodium (Depakote Sprinkle) 125 Mg Cap, 125 MG PO, (Reported) Entered as Reported by: NABEEL CHEEK on 06/21/211600 Ferrous Sulfate (Ferrous Sulfate) 325 Mg Tablet, 325 MG PO DAILY, (Reported) Entered as Reported by: PA PAUL on 11/27/19846 Insulin Aspart (Novolog Flexpen) 300 Units/3 Ml Solution, UNITS SC TIDAC, (Reported) Entered as Reported by: PA PAUL on 11/27/19846 Insulin Glargine,Hum.rec.anlog (Lantus) 100 Unit/1 Ml Vial, 30 UNIT SQ, (Reported) Entered as Reported by: NABEEL CHEEK on 06/21/211600 Loperamide HCl (Imodium A-D) 2 Mg Capsule, 2 MG PO, (Reported) Entered as Reported by: NABEEL CHEEK on 06/21/211600 Losartan Potassium (Losartan Potassium) 100 Mg Tablet, 100 MG PO DAILY, (Reported) Entered as Reported by: NABEEL CHEEK on 06/21/211600 Meclizine HCl (Meclizine HCl) 25 Mg Tablet, 25 MG PO Q12H PRN for DIZZINESS, (Reported) Entered as Reported by: PA PAUL on 11/27/19 08 Metformin HCl (Metformin HCl) 500 Mg Tablet, 500 MG PO, (Reported) Entered as Reported by: NABEEL CHEEK on 06/21/211600 Ofloxacin (Ocuflox) 5 Ml Soln, 5 ML OP, (Reported) Entered as Reported by: NABEEL CHEEK on 06/21/21 160 Pantoprazole Sodium (Protonix) 20 Mg Tablet.dr, 20 MG PO DAILY, (Reported) Entered as Reported by: NABEEL CHEEK on 06/21/21 160 Pregabalin (Lyrica) 150 Mg Capsule, 150 MG PO, (Reported) Entered as Reported by: NABEEL CHEEK on 06/21/21 160 Rosuvastatin Calcium (Rosuvastatin Calcium) 20 Mg Tablet, 20 MG PO, (Reported) Entered as Reported by: NABEEL CHEEK on 06/21/21 160 Review of Systems Review of Systems Constitutional: see HPI; No fever Unable to get accurate review of systems due to altered mental status (MANNY TINEO MD) Past Ieiafue-Bkepdy-Vqbsol Hx Patient Social History Tobacco Use?: Yes Tobacco type used: Cigarettes Substance use?: No Alcohol Use?: Yes Alcohol Frequency: Once in a while (MANNY TINEO MD) Immunizations Up To Date Tetanus Booster (TDap): Unknown PED Vaccines UTD: No (MANNY TINEO MD) Seasonal Allergies Seasonal Allergies: No (MANNY TINEO MD) Past Medical History Surgeries: Yes (PT CANNOT RECALL) Hysterectomy, Vascular Surgery Respiratory: Yes COPD Currently Using CPAP: No Currently Using BIPAP: No Cardiac: Yes Coronary Artery Disease, High Cholesterol, Hypertension, Peripheral Vascular Neurological: Yes Dementia, Neuropathy 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 Disorders: No 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 Genitourinary: Yes UTI-Chronic Gastrointestinal: Yes Gastroesophageal Reflux Musculoskeletal: Yes (NONDISPLACED TRANSVERSE FX OF RIGHT FIBULAR SHAFT 04/11/19) Degenerate Disk Disease, Osteoporosis Endocrine: Yes Diabetes, Insulin dep HEENT: No (dysarthria anarthria) Cataract Loss of Vision: Denies Cancer: No Psychosocial: Yes (DELUSIONAL DISORDER) Anxiety Integumentary: No Blood Disorders: No (MANNY TINEO MD) Family Medical History Reviewed Nursing Family Hx (MANNY TINEO MD) Arthritis G8 SISTER G8 SISTER Cataracts 19 MOTHER Diabetes mellitus G8 SISTER FH: COPD (chronic obstructive pulmonary disease) 19 MOTHER FH: CVA (cerebrovascular accident) 19 FATHER FH: heart attack 19 FATHER Glaucoma 19 MOTHER Hypercholesterolemia 19 FATHER Hypertension 19 FATHER No Pertinent Family Hx (MANNY TINEO MD) Physical Exam Vital Signs Vital Signs - First Documented 10/19/22 10/19/22 17:17 22:58 Temp 37.2 Pulse 86 Resp 16 B/P (MAP) 152/95 (114) Pulse Ox 93 O2 Delivery Room Air O2 Flow Rate 2.00 FiO2 28 (IVÁN PHILLIP MD) Vital Signs Capillary Refill : Less Than 3 Seconds (MANNY TINEO MD) Height, Weight, BMI Height: 5'5.00" Weight: 164lbs. 6.4oz. 74.753820nt; 30.00 BMI Method:Stated General Appearance: WD/WN, no apparent distress HEENT: PERRL/EOMI, other (Mucous membranes dry) Neck: full range of motion, supple Respiratory: lungs clear, normal breath sounds Cardiovascular: regular rate, rhythm, no murmur Gastrointestinal: non tender, soft Back: normal inspection, no CVA tenderness, no vertebral tenderness Extremities: non-tender, normal inspection Neurologic/Psychiatric: other (Awake but not answering questions. She will occasionally follow simple commands such as opening her mouth but otherwise does not follow commands.) Crainal Nerves: other (Occasionally speaks a few words and did state that she had to urinate) Motor/Sensory: other (Unable to for forearm strength assessment due to difficulty with following commands) Skin: normal color, warm/dry (MANNY TINEO MD) Focused Exam Lactate Level 10/19/22 23:05: Lactic Acid Level 2.05*H (IVÁN PHILLIP MD) Lactic Acid Level Laboratory Tests Test 10/19/22 23:05 Lactic Acid Level 2.05 MMOL/L (0.50-2.00) *H (IVÁN PHILLIP MD) Progress/Results/Core Measures Results/Orders Lab Results Laboratory Tests Test 10/19/22 17:25 10/19/22 17:33 10/19/22 17:45 10/19/22 19:32 Range/Units White Blood Count 8.8 4.3-11.0 10^3/uL Red Blood Count 4.60 3.80-5.11 10^6/uL Hemoglobin 13.0 11.5-16.0 g/dL Hematocrit 39 35-52 % Mean Corpuscular Volume 85 80-99 fL Mean Corpuscular Hemoglobin 28 25-34 pg Mean Corpuscular Hemoglobin Concent 33 32-36 g/dL Red Cell Distribution Width 15.4 H 10.0-14.5 % Platelet Count 143 130-400 10^3/uL Mean Platelet Volume 10.2 9.0-12.2 fL Immature Granulocyte % (Auto) 1 % Neutrophils (%) (Auto) 63 42-75 % Lymphocytes (%) (Auto) 26 12-44 % Monocytes (%) (Auto) 8 0-12 % Eosinophils (%) (Auto) 2 0-10 % Basophils (%) (Auto) 0 0-10 % Neutrophils # (Auto) 5.5 1.8-7.8 10^3/uL Lymphocytes # (Auto) 2.2 1.0-4.0 10^3/uL Monocytes # (Auto) 0.7 0.0-1.0 10^3/uL Eosinophils # (Auto) 0.2 0.0-0.3 10^3/uL Basophils # (Auto) 0.0 0.0-0.1 10^3/uL Immature Granulocyte # (Auto) 0.1 0.0-0.1 10^3/uL Percent Immature Platelet Fraction 3.9 0.0-7.6 % Prothrombin Time 13.5 12.2-14.7 SEC INR Comment 1.0 0.8-1.4 Activated Partial Thromboplast Time 32 24-35 SEC D-Dimer 0.42 0.00-0.49 UG/ML Sodium Level 140 135-145 MMOL/L Potassium Level 4.3 3.6-5.0 MMOL/L Chloride Level 100 98-107 MMOL/L Carbon Dioxide Level 26 21-32 MMOL/L Anion Gap 14 5-14 MMOL/L Blood Urea Nitrogen 43 H 7-18 MG/DL Creatinine 1.96 H 0.60-1.30 MG/DL Estimat Glomerular Filtration Rate 26 BUN/Creatinine Ratio 22 Glucose Level 292 H 70-105 MG/DL Calcium Level 9.9 8.5-10.1 MG/DL Corrected Calcium 9.8 8.5-10.1 MG/DL Total Bilirubin 0.3 0.1-1.0 MG/DL Aspartate Amino Transf (AST/SGOT) 22 5-34 U/L Alanine Aminotransferase (ALT/SGPT) 18 0-55 U/L Alkaline Phosphatase 79 40-136 U/L Troponin I < 0.028 <0.028 NG/ML Total Protein 7.1 6.4-8.2 GM/DL Albumin 4.1 3.2-4.5 GM/DL Smear Scan YES Glucometer 286 H 70-110 MG/DL Urine Color YELLOW Urine Clarity CLEAR Urine pH 6.0 5-9 Urine Specific [place] 1.015 L 1.016-1.022 Urine Protein NEGATIVE NEGATIVE Urine Glucose (UA) 2+ H NEGATIVE Urine Ketones NEGATIVE NEGATIVE Urine Nitrite NEGATIVE NEGATIVE Urine Bilirubin NEGATIVE NEGATIVE Urine Urobilinogen 0.2 < = 1.0 MG/DL Urine Leukocyte Esterase NEGATIVE NEGATIVE Urine RBC (Auto) NEGATIVE NEGATIVE Urine RBC NONE /HPF Urine WBC NONE /HPF Urine Crystals PRESENT H /LPF Urine Amorphous Sediment RARE SAMSON URATES H /LPF Urine Bacteria NEGATIVE /HPF Urine Casts PRESENT /LPF Urine Hyaline Casts 0-2 H /LPF Urine Mucus NEGATIVE /LPF Urine Culture Indicated NO Urine Opiates Screen NEGATIVE NEGATIVE Urine Oxycodone Screen NEGATIVE NEGATIVE Urine Methadone Screen NEGATIVE NEGATIVE Urine Propoxyphene Screen NEGATIVE NEGATIVE Urine Barbiturates Screen NEGATIVE NEGATIVE Ur Tricyclic Antidepressants Screen NEGATIVE NEGATIVE Urine Phencyclidine Screen NEGATIVE NEGATIVE Urine Amphetamines Screen NEGATIVE NEGATIVE Urine Methamphetamines Screen NEGATIVE NEGATIVE Urine Benzodiazepines Screen NEGATIVE NEGATIVE Urine Cocaine Screen NEGATIVE NEGATIVE Urine Cannabinoids Screen NEGATIVE NEGATIVE Blood Gas Puncture Site RIGHT RADIAL Blood Gas Patient Temperature 37.2 Arterial Blood pH 7.35 L 7.37-7.43 Arterial Blood Partial Pressure CO2 55 H 35-45 MMHG Arterial Blood Partial Pressure O2 83 79-93 MMHG Arterial Blood HCO3 29 H 23-27 MMOL/L Arterial Blood Total CO2 31.1 H 21.0-31.0 MMOL/L Arterial Blood Oxygen Saturation 98 94-100 % Arterial Blood Base Excess 4.2 H -2.5-2.5 MMOL/L Nael Test YES-POS Blood Gas Ventilator Setting NO Blood Gas Inspired Oxygen 2L Test 10/19/22 19:56 10/19/22 23:05 10/19/22 23:10 Range/Units Glucometer 231 H 70-110 MG/DL Lactic Acid Level 2.05 *H 0.50-2.00 MMOL/L SARS-CoV-2 RNA (RT-PCR) Not Detected Not Detecte (IVÁN PHILLIP MD) My Orders Orders - IVÁN PHILLIP MD Albuterol Pre-Mix Nebs (Rt) (Proventil (10/19/22 18:30) Svn Small Volume Nebulizer (10/19/22 18:26) Arterial Blood Gas (10/19/22 19:31) Arterial Blood Draw - Obtain (10/19/22 19:32) Ns Iv 500 Ml (Sodium Chloride 0.9%) (10/19/22 20:08) Ns Iv 500 Ml (Sodium Chloride 0.9%) (10/19/22 20:06) Drug Screen Stat (Urine) (10/19/22 22:40) Albuterol Pre-Mix Nebs (Rt) (Proventil (10/19/22 22:45) Svn Small Volume Nebulizer (10/19/22 22:45) Covid 19 Inhouse Test (10/19/22 23:04) Blood Culture (10/19/22 23:04) Lactic Acid Analyzer (10/19/22 23:04) Ns Iv 1000 Ml (Sodium Chloride 0.9%) (10/19/22 23:04) Ns Iv 1000 Ml (Sodium Chloride 0.9%) (10/20/22 00:15) (IVÁN PHILLIP MD) Medications Given in ED Current Medications Medications Dose Ordered Sig/Akash Route Start Time Stop Time Status Last Admin Dose Admin Albuterol Sulfate 2.5 mg ONCE ONCE INH 10/19/22 18:30 10/19/22 18:31 DC 10/19/22 19:35 2.5 MG Albuterol Sulfate 2.5 mg ONCE ONCE INH 10/19/22 22:45 10/19/22 22:46 DC 10/19/22 22:58 2.5 MG Sodium Chloride 500 ml @ 0 mls/hr Q0M ONCE IV 10/19/22 17:45 10/19/22 17:46 DC 10/19/22 18:16 500 MLS/HR (IVÁN PHILLIP MD) Vital Signs/I&O 10/19/22 10/19/22 10/19/22 17:17 17:17 22:58 Temp 37.2 Pulse 86 Resp 16 B/P (MAP) 152/95 (114) Pulse Ox 93 96 95 O2 Delivery Room Air Nasal Cannula Nasal Cannula O2 Flow Rate 2.00 2.00 FiO2 28 (IVÁN PHILLIP MD) Blood Pressure Mean: 114 Progress Progress Note : Progress Note Seen and evaluated. residential records reviewed including past medical history and medications. Given her current symptoms, we will initiate stroke protocol including IV, labs including CBC, CMP, troponin, D-dimer, coags, UA and get chest x-ray and CT of the head. I have ordered normal saline 500 mL bolus. Patient does not meet indication for tPA as she is outside of 4.5-hour window from onset of symptoms. We will get in and out cath UA. Monitor patient Differential diagnosis includes stroke, electrolyte abnormality, UTI, dehydr ation, cardiac event, medication effect 1800: Care transferred to Dr. Phillip pending labs and radiology. (MANNY TINEO MD) Progress Note #1: Time: 21:30 Progress Note Was seen and evaluated by me shortly after shift change -is somnolent but easily arousable to voice and light touch. She is oriented to location ("[facility]"), Year ("2022") and day of the week ("saturday"). Moves all extremities equally. Her pupils are quite dilated, 4 to 5 mm; scattered expiratory wheezes bilaterally. Abdomen is soft. No significant lower extremity edema. She tells me that she is in a wheelchair that she "can't walk". She is fairly difficult to keep awake. She denies pain. She is maintaining oxygen saturations at 94 to 96% on 2 L per nasal cannula. Albuterol SVN given for the wheezes, ABG pending. Progress Note #2: Time: 22:05 Progress Note After multiple reevaluations the patient continues to be more and more somnolent. Now hardly able to keep her eyes open. She will not answer questions. When you say her name and rub her chest she will open her eyes and appears to focus briefly however goes right back to sleep. She is having almost rhythmic tremors to her upper torso when assisted to seated position and demonstrates truncal ataxia. She is not febrile, temperature rechecked at this time. Moving All 4 extremities equally. Blood pressure is a bit lower than it was at presentation 100- 110 systolic. Reviewed all of her labs, imaging, EKG again.. Adding a urine drug screen. Anticipate admission. Unclear as to etiology of this altered mental status. Her nurse Marifer spoke with [facility] and they affirmed she is normally Alert and oriented x4. Converses normally. and is a x1 assist for transfers. Case was discussed with Dr Arango on for the [facility]. She would like the patient held in the ED overnight so that she can assess her in the morning. She is hesitant to admit a "neurological" issue here as we have no neurology services. Will keep her on tele, IVF and perform serial evaluations. Progress Note #3: Time: 01:54 Progress Note BP 108/82, HR 80; SPO2 96-98% (on 2.5L O2) (IVÁN PHILLIP MD) Initial ECG Impression Date: Oct 19, 2022 Initial ECG Impression Time: 18:19 Initial ECG Rate: 80 Initial ECG Rhythm: Normal Sinus Initial ECG Intervals: Normal Initial ECG Impression: Nonspecific Changes (IVÁN PHILLIP MD) Diagnostic Imaging Diagonstic Imaging: CT Comments [facility] [place] NAME: [facility] REC#: [id number] PT STATUS: REG ER : 1950 PHYSICIAN: MANNY TINEO MD ADMIT DATE: 10/19/22/ER Signed Date of Exam:10/19/22 CT HEAD WO-R/O STROKE EXAMINATION: CT head without contrast. TECHNIQUE: Multiple contiguous axial images were obtained through the brain without the use of intravenous contrast. All CT scans use one or more of the following dose optimizing techniques: automated exposure control, MA and/or KvP adjustment based on patient size and exam type or iterative reconstruction. HISTORY: Neurologic deficits. COMPARISON: 09/03/2020. FINDINGS: The hall-white matter differentiation is normal. No mass effect or midline shift. There is age related cerebral atrophy with ex vacuo dilation of the ventricles. Basilar cisterns are patent. There is no intra-axial or extra-axial fluid collection. There is no intracranial hemorrhage. The orbits are normal. Paranasal sinuses are normal. Mastoid air cells are clear. No soft tissue abnormality is seen. No osseus lesion or fracture is seen. IMPRESSION: No acute intracranial abnormality. Dictated by: Dictated on workstation # [email or web address] Dict: 10/19/22 1807 Trans: 10/19/22 [address] [facility] [id number] Interpreted by: ROMEL LEAL MD Electronically signed by: ROMEL LEAL MD 10/19/221921 Diagonstic Imaging: Xray Plain Films/CT/US/NM/MRI: chest Comments [facility] [place] NAME: [facility] REC#: [id number] PT STATUS: REG ER : 1950 PHYSICIAN: MANNY TINEO MD ADMIT DATE: 10/19/22/ER Signed Date of Exam:10/19/22 CHEST 1 VIEW, AP/PA ONLY EXAMINATION: Chest 1 view. HISTORY: Stroke. COMPARISON: 09/03/2020 FINDINGS: The lungs are clear without edema or pneumonia. No pleural effusion or pneumothorax. Heart size is normal. IMPRESSION: Clear lungs. Dictated by: Dictated on workstation # [email or web address] Dict: 10/19/221806 Trans: 10/19/221921 [facility] [id number] Interpreted by: ROMEL LEAL MD Electronically signed by: ROMEL LEAL MD 10/19/221921 (IVÁN PHILLIP MD) Departure Communication (Admissions) Time/Spoke to Admitting Phy: 22:[address] Arango; would like her to stay in ED; serial re-exams. will see her in am (IVÁN PHILLIP MD) Impression Primary Impression: Altered mental status Qualified Codes: R40.0 - Somnolence Disposition: ADMITTED INPATIENT Condition: Stable Admissions Decision to Admit Reason: Admit from ER (General) Decision to Admit/Date: Oct 19, 2022 Time/Decision to Admit Time: 22:45 (IVÁN PHILLIP MD) Departure-Patient Inst. Referrals: [facility] Add. Discharge Instructions: MANNY TINEO MD Oct 19, 2022 17:50 IVÁN PHILLIP MD Oct 19, 2022 18:23
[2022-10-19 17:51] LABS: CALCIUM 9.9 MG/DL (8.5-10.1); FIBRIN DEGRADATION PRODUCTS 0.42 UG/ML (0.00-0.49)
[2022-10-19 17:52] LABS: GLUCOSE 292 MG/DL (70-105); TOTAL PROTEIN 7.1 GM/DL (6.4-8.2)
[2022-10-19 17:53] LABS: CARBON DIOXIDE 26 MMOL/L (21-32)
[2022-10-19 17:54] LABS: BILIRUBIN,TOTAL 0.3 MG/DL (0.1-1.0)
[2022-10-19 17:56] LABS: ALKALINE PHOSPHATASE 79 U/L (40-136); CREATININE SERUM 1.96 MG/DL (0.60-1.30); GFR ESTIMATED 26
[2022-10-19 17:57] LABS: BUN/CREATININE RATIO 22
[2022-10-19 17:58] LABS: SMEAR SCAN COMMENT YES
[2022-10-19 17:59] LABS: ALANINE AMINOTRANSFERASE 18 U/L (0-55)
[2022-10-19 18:01] LABS: BILIRUBIN,URINE NEGATIVE (NEGATIVE); CLARITY,URINE CLEAR; COLOR,URINE YELLOW; GLUCOSE, URINE (UA) 2+ (NEGATIVE); KETONES,URINE NEGATIVE (NEGATIVE); LEUKOCYTE ESTERASE ,URINE NEGATIVE (NEGATIVE); NITRITE,URINE NEGATIVE (NEGATIVE); PROTEIN,URINE NEGATIVE (NEGATIVE)
--- NOTE | 2022-10-19 18:09 | Diagnostic Imaging Report ---
EXAMINATION: Chest 1 view. HISTORY: Stroke. COMPARISON: 09/03/2020 FINDINGS: The lungs are clear without edema or pneumonia. No pleural effusion or pneumothorax. Heart size is normal. IMPRESSION: Clear lungs. Dictated by: Dictated on workstation # [email or web address]
[2022-10-19 18:13] LABS: AMORPHOUS SEDIMENT,UR RARE AMOR URATES /LPF; BACTERIA,URINE NEGATIVE /HPF; HYALINE CASTS, URINE 0-2 /LPF
--- NOTE | 2022-10-19 18:13 | Diagnostic Imaging Report ---
EXAMINATION: CT head without contrast. TECHNIQUE: Multiple contiguous axial images were obtained through the brain without the use of intravenous contrast. All CT scans use one or more of the following dose optimizing techniques: automated exposure control, MA and/or KvP adjustment based on patient size and exam type or iterative reconstruction. HISTORY: Neurologic deficits. COMPARISON: 09/03/2020. FINDINGS: The hall-white matter differentiation is normal. No mass effect or midline shift. There is age related cerebral atrophy with ex vacuo dilation of the ventricles. Basilar cisterns are patent. There is no intra-axial or extra-axial fluid collection. There is no intracranial hemorrhage. The orbits are normal. Paranasal sinuses are normal. Mastoid air cells are clear. No soft tissue abnormality is seen. No osseus lesion or fracture is seen. IMPRESSION: No acute intracranial abnormality. Dictated by: Dictated on workstation # [email or web address]
[2022-10-19] MEDS ORDERED: RT-ALBUTEROL SULF 2.5 MG/3 ML PRE-MIX VIAL INH ONE ×2 (18:30→22:45)
[2022-10-19 19:40] LABS: ABG BASE EXCESS 4.2 MMOL/L (-2.5-2.5); ABG OXYGEN SATURATION 98 % (94-100); ABG PCO2 55 MMHG (35-45); ABG PH 7.35 (7.37-7.43); ABG PO2 83 MMHG (79-93); ABG TCO2 31.1 MMOL/L (21.0-31.0)
[2022-10-19 19:41] LABS: ALLENS TEST YES-POS; INSPIRED O2 2L; PATIENT TEMP 37.2; VENTILATOR NO
[2022-10-19] MEDS ORDERED: NS IV 500 ML 500 ML ONE (20:06)
[2022-10-19] MEDS ORDERED: NS IV 500 ML 500 ML IV STA (20:08)
[2022-10-19] MEDS ORDERED: NS IV 1000 ML 1,000 ML IV STA (23:04)
[2022-10-19 23:45] LABS: AMPHETAMINE SCREEN, URINE NEGATIVE (NEGATIVE); BARBITURATE SCREEN URINE NEGATIVE (NEGATIVE); BENZODIAZEPINES SCREEN URINE NEGATIVE (NEGATIVE); CANNABINOID SCREEN, URINE NEGATIVE (NEGATIVE); COCAINE SCREEN URINE NEGATIVE (NEGATIVE); METHADONE STAT NEGATIVE (NEGATIVE); OPIATE SCREEN URINE NEGATIVE (NEGATIVE); OXYCODONE STAT NEGATIVE (NEGATIVE); PROPOXYPHENE STAT NEGATIVE (NEGATIVE); TRICYCLIC ANTIDEPRESSANTS SCRE NEGATIVE (NEGATIVE)
[2022-10-20] MEDS: NS IV 1000 ML 1,000 ML IV SCH ×5 (00:22→17:21)
[2022-10-20 06:13] LABS: CALCIUM 8.6 MG/DL (8.5-10.1); CREATININE SERUM 1.54 MG/DL (0.60-1.30); POTASSIUM 4.2 MMOL/L (3.6-5.0)
[2022-10-20 06:47] LABS: TRIGLYCERIDES 395 MG/DL (<150); VLDL CHOLESTEROL 79 MG/DL (5-40)
[2022-10-20 06:52] LABS: CHOLESTEROL 154 MG/DL (< 200)
[2022-10-20 06:53] LABS: HDL CHOLESTEROL 23 MG/DL (40-60)
--- NOTE | 2022-10-20 07:01 | History & Physical-Hospitalist ---
History of Present Illness HPI/Chief Complaint Chief complaint: Altered mental status with lethargy HPI: This is a 72-year-old female who lives at [facility] re[facility] who presented to the ER with altered mental status and lethargy. Work-up ensued showing no evidence of any source. ER observed her thru the night to evaluate for any neurological source of her status change and found none. She was maintained on gentle IVF thru the night for supportive care. Family at bedside reports she has lived [facility] for the past 2 years. No evidence of any sepsis or stroke. She appears to be chronically ill and it appears she is very declined at baseline. Source: RN/MD, old records Exam Limitations: clinical condition Date Seen 10/20/22 Time Seen by a Provider: 11:00 Attending Physician PCP Admitting Physician: Attending Physician: Referring Physician Date of Admission Home Medications & Allergies Home Medications Reviewed patient Home Medication Reconciliation performed by pharmacy medication reconciliations bicycle repair technician and/or nursing. Patients Allergies have been reviewed. Allergies Allergies Coded Allergies Tetanus Vaccines and Toxoid (Unverified Allergy, Severe, 12/17/11) SWOLLEN HOT RED ARM ampicillin (Unverified Allergy, Unknown, 12/20/15) dulaglutide (Unverified Allergy, Unknown, 06/16/21) Past Lvyymmw-Idaoot-Xkoqic Hx Patient Social History Marrital Status: single Employed/Student: unemployed Tobacco Use?: Yes Tobacco type used: Cigarettes Smoking Status: Unknown if Ever Smoked Substance use?: No Alcohol Use?: Yes Alcohol Frequency: Once in a while Immunizations Up To Date Date of Influenza Vaccine: Nov 05, 2018 Tetanus Booster (TDap): Unknown Hepatitis A: No Hepatitis B: No PED Vaccines UTD: No Date of Pneumonia Vaccine: Dec 04, 2014 Seasonal Allergies Seasonal Allergies: No Current Status Advance Directives: No Primary Language: Moldovan Preferred Spoken Language: Moldovan Past Medical History Surgeries: Hysterectomy, Vascular Surgery COPD Currently Using CPAP: No Currently Using BIPAP: No Coronary Artery Disease, High Cholesterol, Hypertension, Peripheral Vascular Dementia, Neuropathy 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 UTI-Chronic Gastroesophageal Reflux Degenerate Disk Disease, Osteoporosis Diabetes, Insulin dep Cataract Loss of Vision: Denies Anxiety Blood Disorders: No Family Medical History Reviewed Nursing Family Hx Arthritis G8 SISTER G8 SISTER Cataracts 19 MOTHER Diabetes mellitus G8 SISTER FH: COPD (chronic obstructive pulmonary disease) 19 MOTHER FH: CVA (cerebrovascular accident) 19 FATHER FH: heart attack 19 FATHER Glaucoma 19 MOTHER Hypercholesterolemia 19 FATHER Hypertension 19 FATHER No Pertinent Family Hx Review of Systems Constitutional: see HPI Physical Exam Physical Exam Vital Signs Vital Signs - First Documented 10/19/22 10/19/22 17:17 22:58 Temp 37.2 Pulse 86 Resp 16 B/P (MAP) 152/95 (114) Pulse Ox 93 O2 Delivery Room Air O2 Flow Rate 2.00 FiO2 28 Capillary Refill : Less Than 3 Seconds Height, Weight, BMI Height: 5'5.00" Weight: 164lbs. 6.4oz. 74.318953ig; 30.00 BMI Method:Stated General Appearance: No Apparent Distress, Chronically ill, Obese Respiratory: Lungs Clear, Normal Breath Sounds Cardiovascular: Regular Rate, Rhythm Neurologic/Psychiatric: Alert, Depressed Affect, Disoriented Results Results/Procedures Labs Laboratory Tests 10/19/22 17:25 10/20/22 05:30 10/20/22 06:26 Patient resulted labs reviewed. Assessment/Plan Admission Diagnosis Assessment: Altered mental status Dementia Chronic kidney disease Plan: Supportive care [facility] with dementia and appears to be very chronically disabled and debilitated unsure if this is simply cognitive failure and will progress to a terminal state or if she could recover Admission Status: Observation GUADALUPE AUSTIN DO Oct 20, 2022 07:01
[2022-10-20 08:50] VITALS: BP 142/63
[2022-10-20 09:27] LABS: NEUTROPHILS % (AUTO) 66 % (42-75)
[2022-10-20 09:29] LABS: BASOPHILS % (AUTO) 1 % (0-10); EOSINOPHILS # (AUTO) 0.2 10^3/uL (0.0-0.3); EOSINOPHILS % (AUTO) 2 % (0-10); HEMATOCRIT 37 % (35-52); HEMOGLOBIN 11.9 g/dL (11.5-16.0); LYMPHOCYTES % (AUTO) 24 % (12-44); MEAN CORPUSCULAR HEMOGLOBIN 28 pg (25-34); MEAN CORPUSCULAR HGB CONC 32 g/dL (32-36); MEAN CORPUSCULAR VOLUME 87 fL (80-99); MEAN PLATELET VOLUME 10.6 fL (9.0-12.2); MONOCYTES # (AUTO) 0.6 10^3/uL (0.0-1.0); MONOCYTES % (AUTO) 7 % (0-12); NEUTROPHILS # (AUTO) 5.3 10^3/uL (1.8-7.8); PLATELET COUNT 114 10^3/uL (130-400); WHITE BLOOD COUNT 8.1 10^3/uL (4.3-11.0)
[2022-10-20] MEDS ORDERED: ANTACID SUSP 30 ML UDC (MYLANTA) PO PRN (09:30)
[2022-10-20] MEDS ORDERED: ONDANSETRON 4 MG/2 ML (SDV) Z0FRAN IV PRN (09:30)
[2022-10-20] MEDS ORDERED: BISACODYL 10 MG SUPP (DULCOLAX) PR PRN (09:30)
[2022-10-20] MEDS ORDERED: MILK OF MAGNESIA 400 MG/5 ML 30 ML UDC PO PRN (09:30)
[2022-10-20] MEDS ORDERED: diphenhydrAMINE 50 MG/ML INJ (BENADRYL) IVP PRN (09:30)
[2022-10-20] MEDS ORDERED: LACTULOSE SYRUP 10GM/15ML (ENULOSE) 30ML UDC PO PRN (09:30)
[2022-10-20] MEDS ORDERED: ACETAMINOPHEN 325 MG TABLET PO PRN (09:30)
[2022-10-20] MEDS ORDERED: diphenhydrAMINE 25 MG TAB (BENADRYL) PO PRN (09:30)
[2022-10-20] MEDS ORDERED: polyethylene glycoL POWDER 17 GM (MIRALAX) PACK PO PRN (09:30)
[2022-10-20] MEDS ORDERED: HYDROmorphone 2 MG/ML VIAL (DILAUDID) IV PRN (09:30)
[2022-10-20] MEDS ORDERED: CALCIUM CARBONATE 500 MG (TUMS) TAB.CHEW PO PRN (09:30)
[2022-10-20] MEDS ORDERED: ONDANSETRON 4 MG (ZOFRAN) ORAL DISSOLVE TAB PO PRN (09:30)
[2022-10-20 09:43] LABS: ALBUMIN 3.5 GM/DL (3.2-4.5); BILIRUBIN,TOTAL 0.3 MG/DL (0.1-1.0); CALCIUM 8.8 MG/DL (8.5-10.1); CREATININE SERUM 1.57 MG/DL (0.60-1.30); POTASSIUM 4.1 MMOL/L (3.6-5.0); TOTAL PROTEIN 5.9 GM/DL (6.4-8.2)
[2022-10-20] MEDS: ENOXAPARIN 40 MG/0.4 ML (LOVENOX) SYR SC SCH (09:53)
--- NOTE | 2022-10-20 10:20 | Physical Therapy Evaluation ---
PT Evaluation-General Medical Diagnosis Admission Date Oct 20, 2022 at 08:50 Medical Diagnosis: altered mental status Onset Date: Oct 19, 2022 Therapy Diagnosis Therapy Diagnosis: weakness, debility, AMS Height/Weight Height (Feet): 5 Height (Inches): 5.00 Weight (Pounds): 164 Weight (Ounces): 6.4 Precautions Precautions/Isolations: Fall Prevention, Standard Precautions Weight Bear Status Right Lower Extremity: Right Weight Bearing/Tolerated Left Lower Extremity: Left Weight Bearing/Tolerated Referral Physician: Dr Arango Reason for Referral: Evaluation/Treatment Medical History Pertinent Medical History: CAD, COPD, DM, Dementia, HTN, Neuropathy, PVD Current History ED from [place] secondary to AMS Social History Home: Skilled Nursing Prior Prior Level of Function SCALE: Activities may be completed with or without assistive devices. 0-Jugqnkcfiz-bmclhyp completes the activity by him/herself with no assistance from a helper. 5-Set-up or Clean-up Assistance-helper sets up or cleans up; patient completes activity. [place] assists only prior to or following the activity. 4-Supervision or Touching Assistance-helper provides verbal cues and/or touching/steadying and/or contact guard assistance as patient completes activity. Assistance may be provided throughout the activity or intermittently. 3-Partial/Moderate Assistance-helper does LESS THAN HALF the effort. [place] lifts, holds or supports trunk or limbs, but provides less than half the effort. 2-Substantial/Maximal Assistance-helper does MORE THAN HALF the effort. [place] lifts or holds trunk or limbs and provides more than half the effort. 2-Uopbwziqq-baummv does ALL the effort. Patient does none of the effort to complete the activity. Or, the assistance of 2 or more helpers is required for the patient to complete the activity. If activity was not attempted, code reason: 7-Patient Refused. 9-Not Applicable-not attempted and the patient did not perform the activity before the current illness, exacerbation or injury. 10-Not Attempted due to Environmental Limitations-(lack of equipment, weather restraints, etc.). 88-Not Attempted due to Medical Conditions or Safety Concerns. Bed Mobility: 6 Transfers (B,C,W/C): 3 Wheelchair Mobility: 6 Prior Devices Use: Manual wheelchair PT Evaluation-Current Subjective Pt supine in bed upon arrival to room. Pt AO x 0. Objective Patient Orientation: Confused, Unable to Assess, Mumbles Attachments: Oxygen ROM/Strength Strength Lower Extremities grossly 3/5 with functional mobility Integumentary/Posture Integumentary refer to nursing notes Neuromuscular (Tone, Coordination, Reflexes) rhythmic tremors in B UEs Transfers Roll Left to Right (QC): 4 Sit to Lying (QC): 4 Lying to Sitting/Side of Bed(Q: 4 Sit to Stand (QC): 2 Pt requires max A to achieve standing position this date, after approx 10s her legs buckle and she requires assistance to regain balance Balance Sitting Static: Poor Sitting Dynamic: Poor Assessment/Needs Pt has good bed mobility; however, unable to ambulate this date, as she frequently has leg buckling. AMS limits evaluation; however, per NH she is wheelchair level prior. Would benefit from therapy while in hospital to improve transfer safety. Rehab Potential: Fair PT Cable Coverer Goals Residential Goals PT Cable Coverer Goals Time Frame: Nov 03, 2022 Roll Left & Right (QC): 6 Sit to Lying (QC): 6 Lying-Sitting on Side/Bed(QC): 6 Sit to Stand (QC): 6 Chair/Iqd-ao-Wntbr Xfer(QC): 4 Toilet Transfer (QC): 4 PT Plan Problem List Problem List: Activity Tolerance, Functional Strength, Safety, Balance, Gait, Transfer, Bed Mobility, ROM Treatment/Plan Treatment Plan: Continue Plan of Care Treatment Plan: Bed Mobility, Education, Functional Activity Kelechi, Functional Strength, Gait, Safety, Therapeutic Exercise, Transfers Treatment Duration: Nov 03, 2022 Frequency: 6 times per week Estimated Hrs Per Day: .25 hour per day Patient and/or Family Agrees t: Yes Time Time In: 940 Time Out: 950 DATE: Oct 20, 2022 Total Billed Treatment Time: 10 Total Billed Treatment 1 visit SHYLA HAMPTON PT Oct 20, 2022 10:20
[2022-10-20 11:28] VITALS: BP 129/67
[2022-10-20] MEDS ORDERED: CARB10DR OP (13:14)
[2022-10-20] MEDS ORDERED: [UNRECOGNIZED DRUG - CODE] PO (13:14)
[2022-10-20] MEDS ORDERED: BUME2TAB7 PO (13:14)
[2022-10-20] MEDS ORDERED: NOVOLOG ASPART (13:14)
[2022-10-20] MEDS ORDERED: GLIM2TAB4 PO (13:14)
[2022-10-20] MEDS ORDERED: [UNRECOGNIZED DRUG - CODE] PO (13:14)
[2022-10-20] MEDS ORDERED: CYAN100088 SQ (13:14)
[2022-10-20] MEDS ORDERED: ALBU6.7H13 INH (13:14)
[2022-10-20] MEDS ORDERED: ALBU0.63 IH (13:14)
[2022-10-20] MEDS ORDERED: ESCI20TA PO (13:14)
[2022-10-20] MEDS ORDERED: DICL100G13 TP (13:22)
[2022-10-20 15:40] VITALS: BP 129/67
[2022-10-20] MEDS ORDERED: RT-ALBUTEROL/IPRATROPIUM 3 ML (DUONEB) VIAL INH PRN (15:45)
[2022-10-20 15:46] VITALS: BP 139/79
[2022-10-20] MEDS ORDERED: MECLIZINE 25 MG (ANTIVERT) TAB PO PRN (17:00)
[2022-10-20] MEDS ORDERED: CYANOCOBALAMIN INJ 1000 MCG/ML IM SCH (17:00)
[2022-10-20] MEDS: ACETAMINOPHEN 500 MG TAB (TYLENOL) PO SCH (17:21)
[2022-10-20 19:09] VITALS: BP 126/81
[2022-10-20] MEDS: DOCUSATE SODIUM 100 MG (COLACE) CAP PO SCH (20:03)
[2022-10-20] MEDS: ROSUVASTATIN 20 MG (CRESTOR) TABLET PO SCH (20:03)
[2022-10-20] MEDS: SENNOSIDES 8.6 MG (SENOKOT) TAB PO SCH (20:03)
[2022-10-20] MEDS: RT-ALBUTEROL/IPRATROPIUM 3 ML (DUONEB) VIAL INH SCH (21:12)
[2022-10-20 23:17] VITALS: BP 137/63
[2022-10-21] VITALS (7 sets, daily range): BP systolic 129–199; BP diastolic 65–103
[2022-10-21] MEDS: ACETAMINOPHEN 500 MG TAB (TYLENOL) PO SCH ×3 (00:13→16:58)
[2022-10-21] MEDS: RT-ALBUTEROL/IPRATROPIUM 3 ML (DUONEB) VIAL INH SCH ×4 (02:57→20:04)
[2022-10-21] MEDS: NS IV 1000 ML 1,000 ML IV SCH ×3 (04:02→12:43)
[2022-10-21 06:05] LABS: BASOPHILS % (AUTO) 0 % (0-10); EOSINOPHILS # (AUTO) 0.1 10^3/uL (0.0-0.3); EOSINOPHILS % (AUTO) 2 % (0-10); HEMATOCRIT 34 % (35-52); HEMOGLOBIN 11.2 g/dL (11.5-16.0); LYMPHOCYTES # (AUTO) 1.6 10^3/uL (1.0-4.0); LYMPHOCYTES % (AUTO) 20 % (12-44); MEAN CORPUSCULAR HEMOGLOBIN 29 pg (25-34); MEAN CORPUSCULAR HGB CONC 33 g/dL (32-36); MEAN CORPUSCULAR VOLUME 87 fL (80-99); MEAN PLATELET VOLUME 10.1 fL (9.0-12.2); MONOCYTES # (AUTO) 0.6 10^3/uL (0.0-1.0); MONOCYTES % (AUTO) 7 % (0-12); NEUTROPHILS # (AUTO) 5.5 10^3/uL (1.8-7.8); NEUTROPHILS % (AUTO) 70 % (42-75); PLATELET COUNT 102 10^3/uL (130-400); WHITE BLOOD COUNT 7.9 10^3/uL (4.3-11.0)
[2022-10-21 06:25] LABS: ALBUMIN 3.4 GM/DL (3.2-4.5); POTASSIUM 3.7 MMOL/L (3.6-5.0)
[2022-10-21 06:26] LABS: CALCIUM 8.6 MG/DL (8.5-10.1)
[2022-10-21 06:27] LABS: TOTAL PROTEIN 5.7 GM/DL (6.4-8.2)
[2022-10-21 06:29] LABS: BILIRUBIN,TOTAL 0.4 MG/DL (0.1-1.0)
[2022-10-21 06:31] LABS: CREATININE SERUM 1.27 MG/DL (0.60-1.30)
--- NOTE | 2022-10-21 07:17 | Progress Note - Hospitalist ---
Subjective HPI/CC On Admission Date Seen by Provider: Oct 21, 2022 Time Seen by Provider: 11:00 Chief complaint: Altered mental status with lethargy HPI: This is a 72-year-old female [facility] who p resented to the ER with altered mental status and lethargy. Work-up ensued showing no evidence of any source. ER observed her thru the night to evaluate for any neurological source of her status change and found none. She was maintained on gentle IVF thru the night for supportive care. Family at bedside reports she has lived at [facility] for the past 2 years. No evidence of any sepsis or stroke. She appears to be chronically ill and it appears she is very declined at baseline. Subjective/Events-last exam Patient evaluated by More percy parker Slater cath in place Reviewed fluid maintained Blood pressures CT scan will be repeated tomorrow in case stroke has occurred to 3 days to appear Review of Systems General: Fatigue, Malaise Focused Exam Lactate Level 10/19/22 06:26: Lactic Acid Level 1.84 10/19/22 23:05: Lactic Acid Level 2.05*H Objective Exam Vital Signs Vital Signs Date Time Temp Pulse Resp B/P (MAP) Pulse Ox O2 Delivery O2 Flow Rate FiO2 10/21/22 14:56 94 Nasal Cannula 2.00 10/21/22 11:59 36.0 108 20 199/94 (129) 10/21/22 02:57 28 Capillary Refill : Less Than 3 Seconds General Appearance: No Apparent Distress, WD/WN, Chronically ill Respiratory: Lungs Clear, Normal Breath Sounds Cardiovascular: Regular Rate, Rhythm Neurologic/Psychiatric: Alert, Depressed Affect, Disoriented, Other Skin: Normal Color, Warm/Dry Results/Procedures Lab Laboratory Tests 10/21/22 05:25 Patient resulted labs reviewed. Assessment/Plan Assessment and Plan Assess & Plan/Chief Complaint Assessment: Altered mental status Dementia Chronic kidney disease HTN OOC Plan: Supportive care Patient has been in the residential for 2 years with dementia and appears to be very chronically disabled and debilitated unsure if this is simply cognitive failure and will progress to a terminal state or if she could recover Repeat CT scan tomorrow GUADALUPE AUSTIN DO Oct 21, 2022 07:17
[2022-10-21 08:10] LABS: ABG BASE EXCESS 0.7 MMOL/L (-2.5-2.5); ABG OXYGEN SATURATION 93 % (94-100); ABG PCO2 41 MMHG (35-45); ABG PO2 59 MMHG (79-93); ABG TCO2 26.4 MMOL/L (21.0-31.0); ALLENS TEST POSITIVE; INSPIRED O2 ROOM
[2022-10-21 08:11] LABS: PATIENT TEMP 35.9; VENTILATOR NO
[2022-10-21] MEDS: FERROUS SULF 325 MG (IRON) TAB PO SCH (08:35)
[2022-10-21] MEDS: ENOXAPARIN 40 MG/0.4 ML (LOVENOX) SYR SC SCH (08:35)
[2022-10-21] MEDS: SENNOSIDES 8.6 MG (SENOKOT) TAB PO SCH ×2 (08:35→19:33)
[2022-10-21] MEDS: ASPIRIN 81 MG CHEW (CHILDREN'S ASA) PO SCH (08:35)
[2022-10-21] MEDS: DOCUSATE SODIUM 100 MG (COLACE) CAP PO SCH ×2 (08:35→19:34)
[2022-10-21] MEDS: PANTOPRAZOLE 20 MG TABLET (PROTONIX) PO SCH (08:35)
[2022-10-21] MEDS: VITAMIN D3 125 MCG (5,000 UNITS) CAPSULE PO SCH (08:36)
--- NOTE | 2022-10-21 08:40 | Diagnostic Imaging Report ---
INDICATION: Pneumonia COMPARISON: 10/19/2022 TECHNIQUE: Single radiograph of the chest dated 10/21/2022. FINDINGS: Surgical clips within the left neck. The cardiac silhouette is within normal limits in size. No significant pulmonary vascular congestion. Increased predominantly interstitial opacities are identified throughout the bilateral lungs, greatest within the right lung base. No significant pleural effusion. No pneumothorax. Scattered osseous degenerative changes without acute osseous abnormality. IMPRESSION: Developing bilateral interstitial opacities, greatest in the right lung base. This may relate to interstitial pneumonia versus interstitial edema. Dictated by: Dictated on workstation # [id number]
[2022-10-21] MEDS ORDERED: NON-FORMULARY MEDICATION 1 EA EA (Cholecalciferol (Vitamin D3) (Vitamin D3) 125 MCG) PO SCH (09:00)
[2022-10-21] MEDS ORDERED: amLODIPine 5 MG (NORVASC) TAB PO NR (12:15)
[2022-10-21] MEDS ORDERED: meTOprolol TARTRATE 25 MG (LOPRESSOR) TABLET PO NR (12:15)
[2022-10-21] MEDS: inSUlin ASPART (NovoLOG) 1 UNIT/0.01 ML (CHARGE PER UNIT) SC SCH ×2 (16:47→21:27)
[2022-10-21] MEDS: amLODIPine 5 MG (NORVASC) TAB PO SCH (19:33)
[2022-10-21] MEDS: ROSUVASTATIN 20 MG (CRESTOR) TABLET PO SCH (19:33)
[2022-10-21] MEDS: meTOprolol TARTRATE 25 MG (LOPRESSOR) TABLET PO SCH (19:34)
[2022-10-21] MEDS: MELATONIN 3 MG TABLET PO PRN (19:34)
[2022-10-22] MEDS: NS IV 1000 ML 1,000 ML IV SCH ×2 (00:30→15:10)
[2022-10-22] MEDS: ACETAMINOPHEN 500 MG TAB (TYLENOL) PO SCH ×3 (01:00→16:03)
[2022-10-22] MEDS: RT-ALBUTEROL/IPRATROPIUM 3 ML (DUONEB) VIAL INH SCH ×4 (02:44→20:02)
[2022-10-22 03:48] VITALS: BP 180/85
[2022-10-22] MEDS: inSUlin ASPART (NovoLOG) 1 UNIT/0.01 ML (CHARGE PER UNIT) SC SCH ×4 (05:38→21:03)
[2022-10-22 06:18] LABS: LYMPHOCYTES # (AUTO) 1.2 10^3/uL (1.0-4.0); MEAN CORPUSCULAR HEMOGLOBIN 28 pg (25-34)
[2022-10-22 06:21] LABS: BASOPHILS % (AUTO) 0 % (0-10); EOSINOPHILS # (AUTO) 0.1 10^3/uL (0.0-0.3); EOSINOPHILS % (AUTO) 1 % (0-10); HEMATOCRIT 39 % (35-52); LYMPHOCYTES % (AUTO) 11 % (12-44); MEAN CORPUSCULAR HGB CONC 33 g/dL (32-36); MEAN CORPUSCULAR VOLUME 85 fL (80-99); MEAN PLATELET VOLUME 9.9 fL (9.0-12.2); MONOCYTES # (AUTO) 0.9 10^3/uL (0.0-1.0); MONOCYTES % (AUTO) 8 % (0-12); NEUTROPHILS # (AUTO) 8.7 10^3/uL (1.8-7.8); NEUTROPHILS % (AUTO) 78 % (42-75); PLATELET COUNT 113 10^3/uL (130-400); WHITE BLOOD COUNT 11.1 10^3/uL (4.3-11.0)
[2022-10-22 06:29] LABS: POTASSIUM 3.6 MMOL/L (3.6-5.0)
[2022-10-22 06:30] LABS: CALCIUM 9.5 MG/DL (8.5-10.1)
[2022-10-22 06:31] LABS: TOTAL PROTEIN 6.9 GM/DL (6.4-8.2)
[2022-10-22 06:33] LABS: BILIRUBIN,TOTAL 0.8 MG/DL (0.1-1.0)
[2022-10-22 06:35] LABS: CREATININE SERUM 1.29 MG/DL (0.60-1.30)
[2022-10-22 07:24] VITALS: BP 194/89
--- NOTE | 2022-10-22 09:19 | Diagnostic Imaging Report ---
PROCEDURE: CT head without contrast. TECHNIQUE: Multiple contiguous axial images were obtained through the brain without the use of intravenous contrast. Auto Exposure Controls were utilized during the CT exam to meet ALARA standards for radiation dose reduction. INDICATION: Cerebrovascular accident and weakness. Comparison is made with the recent head CT from 10/19/2022. FINDINGS: Ventricles and sulci are stable in appearance. No sulcal effacement or midline shift is identified. No acute intra-axial or extra-axial hemorrhage is detected. Cisterns are patent. The visualized paranasal sinuses are clear. IMPRESSION: No acute intracranial process is detected. Dictated by: Dictated on workstation # [id number]
[2022-10-22] MEDS: SENNOSIDES 8.6 MG (SENOKOT) TAB PO SCH ×2 (09:42→21:04)
[2022-10-22] MEDS: ASPIRIN 81 MG CHEW (CHILDREN'S ASA) PO SCH (09:42)
[2022-10-22] MEDS: meTOprolol TARTRATE 25 MG (LOPRESSOR) TABLET PO SCH (09:43)
[2022-10-22] MEDS: DOCUSATE SODIUM 100 MG (COLACE) CAP PO SCH ×2 (09:43→21:04)
[2022-10-22] MEDS: VITAMIN D3 125 MCG (5,000 UNITS) CAPSULE PO SCH (09:43)
[2022-10-22] MEDS: PANTOPRAZOLE 20 MG TABLET (PROTONIX) PO SCH (09:43)
[2022-10-22] MEDS: ENOXAPARIN 40 MG/0.4 ML (LOVENOX) SYR SC SCH (09:43)
[2022-10-22] MEDS: amLODIPine 5 MG (NORVASC) TAB PO SCH ×2 (09:43→21:03)
[2022-10-22] MEDS: FERROUS SULF 325 MG (IRON) TAB PO SCH (09:43)
[2022-10-22] MEDS ORDERED: LOSARTAN 100 MG (COZAAR) TABLET PO NR (10:30)
--- NOTE | 2022-10-22 10:49 | Physical Therapy Daily Note ---
PT Daily Note-Current Subjective Pt found laying in bed upon entry. Pt is non-verbal and is unable to communicate pain level. No signs of pain demonstrated but does display fatigue throughout treatment. Pain Section J - Health Conditions 1. Rarely or not at all 2. Occasionally 3. Frequently 4. Almost constantly 8. Unable to answer Pain Effect on Sleep: 1 Pain Interference with Therapy: 1 Pain Interference w/Day-to-Day: 1 Mental Status Patient Orientation: Confused Attachments: Oxygen, Slater Catheter, IV 2L O2 Transfers SCALE: Activities may be completed with or without assistive devices. 4-Zofbpldoxe-lhdnzbr completes the activity by him/herself with no assistance from a helper. 5-Set-up or Clean-up Assistance-helper sets up or cleans up; patient completes activity. [place] assists only prior to or following the activity. 4-Supervision or Touching Assistance-helper provides verbal cues and/or touching/steadying and/or contact guard assistance as patient completes activity. Assistance may be provided throughout the activity or intermittently. 3-Partial/Moderate Assistance-helper does LESS THAN HALF the effort. [place] lifts, holds or supports trunk or limbs, but provides less than half the effort. 2-Substantial/Maximal Assistance-helper does MORE THAN HALF the effort. [place] lifts or holds trunk or limbs and provides more than half the effort. 3-Mdcgkkiib-manklr does ALL the effort. Patient does none of the effort to co mplete the activity. Or, the assistance of 2 or more helpers is required for the patient to complete the activity. If activity was not attempted, code reason: 7-Patient Refused. 9-Not Applicable-not attempted and the patient did not perform the activity before the current illness, exacerbation or injury. 10-Not Attempted due to Environmental Limitations-(lack of equipment, weather restraints, etc.). 88-Not Attempted due to Medical Conditions or Safety Concerns. Sit to Lying (QC): 4 Lying to Sitting/Side of Bed(Q: 4 Sit to Stand (QC): 07 Pt CGA /c lying to sitting and sitting to lying transfer, completed 3x from bed. Sit to stand transfer attempted 2x but pt pushes helper away on second attempt. Weight Bearing Right Lower Extremity: Right Weight Bearing/Tolerated Left Lower Extremity: Left Weight Bearing/Tolerated Gait Training Does the Patient Walk?: No and Walking Goal IS indicated Assessment Current Status: Poor Progress Pt CGA /c all bed mobility. Completes sitting to lying and lying to sitting /c CGA. Bed transfers completed 3x. Sit to stand transfer was attempted 2x from edge of bed but on second attempt pt pushed helper away. Pt very slow to complete all transfers and has difficulty with attentiveness throughout visit. Continue to progress per POC to improve functional ability, strength, and endurance. PT Supervisor Slashing Department Goals Supervisor Slashing Department Goals PT Skilled Nursing Goals Time Frame: Nov 03, 2022 Roll Left & Right (QC): 6 Sit to Lying (QC): 6 Lying-Sitting on Side/Bed(QC): 6 Sit to Stand (QC): 6 Chair/Ojg-zc-Fzypa Xfer(QC): 4 Toilet Transfer (QC): 4 PT Plan Treatment/Plan Treatment Plan: Continue Plan of Care Treatment Plan: Bed Mobility, Education, Functional Activity Kelechi, Functional Strength, Gait, Safety, Therapeutic Exercise, Transfers Treatment Duration: Nov 03, 2022 Frequency: 6 times per week Estimated Hrs Per Day: .25 hour per day Patient and/or Family Agrees t: Yes Time Time In: 811 Time Out: 825 DATE: Oct 22, 2022 Total Billed Treatment Time: 14 Total Billed Treatment 1 visit FA x 1 LUISA CORNELL VOICE INTERCEPT TECHNICIAN Oct 22, 2022 10:49
[2022-10-22 11:29] VITALS: BP 238/99
--- NOTE | 2022-10-22 15:07 | Occupational Therapy Eval ---
OT Evaluation-General/PLF Medical Diagnosis Admission Date Oct 20, 2022 at 08:50 Medical Diagnosis: altered mental status Onset Date: Oct 19, 2022 Therapy Diagnosis Therapy Diagnosis: decr self care, decr cognition, decr funct mob, decr act cherelle Height/Weight Height (Feet): 5 Height (Inches): 5.00 Weight (Pounds): 164 Weight (Ounces): 6.4 Precautions Precautions/Isolations: Standard Precautions Weight Bear Status Weight Bearing Restriction: Weight Bearing/Tolerated Referral Physician: Dr Arango Referral Reason: Evaluation/Treatment Medical History Pertinent Medical History: CAD, COPD, DM, Dementia, GERD, HTN, Neuropathy, PVD, Smoking Additional Medical History Cataract. Chronic UTI. DDD, osteoporosis. R fib fx 2019 Current History Admitted with AMS. Chronic kidney disease. Not responsive after being outside smoking Reviewed History: Yes Social History Home: [facility]) ADL-Prior Level of Function SCALE: Activities may be completed with or without assistive devices. 0-Fxezefkcxw-uzsbcdd completes the activity by him/herself with no assistance from a helper. 5-Set-up or Clean-up Assistance-helper sets up or cleans up; patient completes activity. [place] assists only prior to or following the activity. 4-Supervision or Touching Assistance-helper provides verbal cues and/or touching/steadying and/or contact guard assistance as patient completes activity. Assistance may be provided throughout the activity or intermittently. 3-Partial/Moderate Assistance-helper does LESS THAN HALF the effort. [place] lifts, holds or supports trunk or limbs, but provides less than half the effort. 2-Substantial/Maximal Assistance-helper does MORE THAN HALF the effort. [place] lifts or holds trunk or limbs and provides more than half the effort. 6-Tzjfjmikq-ztxltc does ALL the effort. Patient does none of the effort to complete the activity. Or, the assistance of 2 or more helpers is required for the patient to complete the activity. If activity was not attempted, code reason: 7-Patient Refused. 9-Not Applicable-not attempted and the patient did not perform the activity before the current illness, exacerbation or injury. 10-Not Attempted due to Environmental Limitations-(lack of equipment, weather restraints, etc.). 88-Not Attempted due to Medical Conditions or Safety Concerns. ADL PLOF Comments Nursing reported that patient was relatively independent with activities and could walk short distances to her bathroom. PT eleanoral reported transfers mod assist and indep w/c mobility Self Care: Needed Some Help Functional Cognition: Needed Some Help OT Current Status Subjective Pt seen in room, up in bed. No pain mentioned. Appearance Pt opened her eyes and nodded when asked if her name was Effie but did not answer any other questions. She required assistance to move her UEs and was somewhat resistive. Mental Status/Objective Patient Orientation: Person Attachments: Slater Catheter, Oxygen Current Upper Extremity ROM Grossly functional bilaterally Upper Extremity Strength Adequate to assist with bed mobility ADL-Treatment ADL-Current Pt was not able to take a drink of water. Nursing reported that she had difficulty taking meds and required help with feeding. PT reported CGA with bed mobility today but patient refused standing. Education OT Patient Education: Purpose of tx/functional activities, Rehab process Teaching Recipient: Patient Teaching Methods: Discussion Response to Teaching: Unable to Comprehend OT Snf Goals Channel Man Goals Time Frame: Nov 03, 2022 Eating (QC): 5 Oral Hygiene (QC): 5 Toileting Hygiene (QC): 5 Shower/Bathe Self (QC): 3 Upper Body Dressing (QC): 5 Lower Body Dressing (QC): 3 On/Off Footwear (QC): 1 Additional Goals: 1-Demonstrate ADL Tasks, 2-Verbalize Understanding, 3-I mproveStrength/Kelechi 1=Demonstrate adherence to instructed precautions during ADL tasks. 2=Patient will verbalize/demonstrate understanding of assistive devices/modifications for ADL. 3=Patient will improve strength/tolerance for activity to enable patient to perform ADL's. OT Education/Plan Problem List/Assessment Assessment: Decreased Activ Tolerance, Dependent Transfers, Impaired Bed Mobility, Impaired Cognition, Impaired Self-Care Skills Pt would benefit from skilled OT to increase her independence in basic self care and decrease caregiver burden. Discharge Recommendations Plan/Recommendations: Continue POC Treatment Plan/Plan of Care Treatment,Training & Education: Yes Patient would benefit from OT for education, treatment and training to promote independence in ADL's, mobility, safety and/or upper extremity function for ADL's. Plan of Care: ADL Retraining, Functional Mobility, UE Funct Exercise/Act Treatment Duration: Nov 03, 2022 Frequency: 5 times per week (4-5 times a week) Estimated Hrs Per Day: .25 hour per day Agreement: No (unable to agree verbally) Rehab Potential: Fair Time Start Time: 13:57 Stop Time: 14:03 DATE: Oct 22, 2022 Total Time Billed (hr/min): 6 Billed Treatment Time visit, 6 minutes evaluation moderate intensity MAURISIO CONTRERAS OT Oct 22, 2022 15:07
--- NOTE | 2022-10-22 15:56 | Progress Note ---
Subjective Subjective/Events-last exam Pt lying in bed, does not appear uncomfortable, opens eyes and shakes and nods head at times, but does not answer questions. Focused Exam Lactate Level 10/19/22 23:05: Lactic Acid Level 2.05*H Objective Exam Last Set of Vital Signs Vital Signs Date Time Temp Pulse Resp B/P (MAP) Pulse Ox O2 Delivery O2 Flow Rate FiO2 10/22/22 15:14 Nasal Cannula 2.00 10/22/22 11:29 36.4 81 20 238/99 (145) 93 10/21/22 02:57 28 Capillary Refill : Less Than 3 Seconds I&O Intake and Output 10/22/22 00:00 Intake Total 1010 ml Output Total 5075 ml Balance -4065 ml Intake Oral 1010 ml Output Urine Total 5075 ml General: Alert, No Acute Distress Lungs: Clear to Auscultation, Normal Air Movement Heart: Regular Rate, No Murmurs Abdomen: Normal Bowel Sounds, Soft Neuro: Normal Speech Psych/Mental Status: Mood NL Results/Procedures Lab Laboratory Tests 10/21/22 21:12: Glucometer 288H 10/22/22 05:03: Glucometer 334H 10/22/22 05:35: White Blood Count 11.1H, Red Blood Count 4.61, Hemoglobin 13.0, Hematocrit 39, Mean Corpuscular Volume 85, Mean Corpuscular Hemoglobin 28, Mean Corpuscular Hemoglobin Concent 33, Red Cell Distribution Width 14.9H, Platelet Count 113L, Mean Platelet Volume 9.9, Immature Granulocyte % (Auto) 1, Neutrophils (%) (Auto) 78H, Lymphocytes (%) (Auto) 11L, Monocytes (%) (Auto) 8, Eosinophils (%) (Auto) 1, Basophils (%) (Auto) 0, Neutrophils # (Auto) 8.7H, Lymphocytes # (Auto) 1.2, Monocytes # (Auto) 0.9, Eosinophils # (Auto) 0.1, Basophils # (Auto) 0.0, Immature Granulocyte # (Auto) 0.1, Percent Immature Platelet Fraction 2.1, Sodium Level 139, Potassium Level 3.6, Chloride Level 105, Carbon Dioxide Level 22, Anion Gap 12, Blood Urea Nitrogen 18, Creatinine 1.29, Estimat Glomerular Filtration Rate 44, BUN/Creatinine Ratio 14, Glucose Level 315H, Calcium Level 9.5, Corrected Calcium 9.5, Total Bilirubin 0.8, Aspartate Amino Transf (AST/SGOT) 22, Alanine Aminotransferase (ALT/SGPT) 14, Alkaline Phosphatase 50, Total Protein 6.9, Albumin 4.0 10/22/22 11:03: Glucometer 315H Microbiology 10/19/22 Blood Culture - Preliminary, Resulted Coryneform bacteria Assessment/Plan Assessment/Plan (1) Altered mental status Status: Acute Assessment & Plan: CT head on 10/19 and repeat today without acute findings. No evidence of UTI, CXR without clear pneumonia and labs not consistent with infection. UDS on admit negative. Consider MRI in the morning. Qualifiers: Qualified Codes: R40.0 - Somnolence (2) Diabetes mellitus Status: Chronic Assessment & Plan: With marked hyperglycemia, on insulin at home, will start long acting, continue sliding scale insulin. 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
[2022-10-22 15:57] VITALS: BP 198/69
[2022-10-22] MEDS ORDERED: meTOprolol TARTRATE 25 MG (LOPRESSOR) TABLET PO NR (17:00)
[2022-10-22 20:10] VITALS: BP 190/73
[2022-10-22] MEDS ORDERED: meTOprolol TARTRATE 25 MG (LOPRESSOR) TABLET PO SCH (21:00)
[2022-10-22] MEDS: ROSUVASTATIN 20 MG (CRESTOR) TABLET PO SCH (21:03)
[2022-10-22] MEDS: meTOprolol TARTRATE 50 MG (LOPRESSOR) TAB PO SCH (21:04)
[2022-10-22 23:31] VITALS: BP 178/80
[2022-10-23] VITALS (8 sets, daily range): BP systolic 120–216; BP diastolic 60–91
[2022-10-23] MEDS: MELATONIN 3 MG TABLET PO PRN (00:06)
[2022-10-23] MEDS: ACETAMINOPHEN 500 MG TAB (TYLENOL) PO SCH ×3 (00:06→16:46)
[2022-10-23] MEDS: RT-ALBUTEROL/IPRATROPIUM 3 ML (DUONEB) VIAL INH SCH ×4 (02:41→21:48)
[2022-10-23 06:11] LABS: BASOPHILS % (AUTO) 0 % (0-10); EOSINOPHILS # (AUTO) 0.2 10^3/uL (0.0-0.3); EOSINOPHILS % (AUTO) 1 % (0-10); HEMATOCRIT 40 % (35-52); HEMOGLOBIN 13.5 g/dL (11.5-16.0); LYMPHOCYTES # (AUTO) 1.4 10^3/uL (1.0-4.0); LYMPHOCYTES % (AUTO) 12 % (12-44); MEAN CORPUSCULAR HEMOGLOBIN 28 pg (25-34); MEAN CORPUSCULAR HGB CONC 34 g/dL (32-36); MEAN CORPUSCULAR VOLUME 83 fL (80-99); MONOCYTES # (AUTO) 0.8 10^3/uL (0.0-1.0); MONOCYTES % (AUTO) 7 % (0-12); NEUTROPHILS # (AUTO) 8.9 10^3/uL (1.8-7.8); NEUTROPHILS % (AUTO) 78 % (42-75); PLATELET COUNT 115 10^3/uL (130-400); WHITE BLOOD COUNT 11.3 10^3/uL (4.3-11.0)
[2022-10-23 06:37] LABS: ALBUMIN 4.2 GM/DL (3.2-4.5); BILIRUBIN,TOTAL 0.8 MG/DL (0.1-1.0); CALCIUM 10.1 MG/DL (8.5-10.1); CREATININE SERUM 1.47 MG/DL (0.60-1.30); POTASSIUM 3.5 MMOL/L (3.6-5.0); TOTAL PROTEIN 7.5 GM/DL (6.4-8.2)
[2022-10-23] MEDS: inSUlin ASPART (NovoLOG) 1 UNIT/0.01 ML (CHARGE PER UNIT) SC SCH ×4 (06:41→20:31)
--- NOTE | 2022-10-23 08:47 | Physical Therapy Daily Note ---
PT Daily Note-Current Subjective Pt asleep in bed upon arrival to room, sidelying on the L. Pt very difficult to arouse, only minimally opens eyes to her name. Pain Section J - Health Conditions 1. Rarely or not at all 2. Occasionally 3. Frequently 4. Almost constantly 8. Unable to answer Pain Effect on Sleep: 1 Pain Interference with Therapy: 1 Pain Interference w/Day-to-Day: 1 Appearance Following session, pt propped up in bed, with call light and tray table within reach. All needs met Mental Status Patient Orientation: Unable to Assess, Non-Verbal/Aphasic, [place] Attachments: Oxygen Transfers SCALE: Activities may be completed with or without assistive devices. 7-Yhaxuzhscy-xnjpxel completes the activity by him/herself with no assistance from a helper. 5-Set-up or Clean-up Assistance-helper sets up or cleans up; patient completes activity. [place] assists only prior to or following the activity. 4-Supervision or Touching Assistance-helper provides verbal cues and/or touching/steadying and/or contact guard assistance as patient completes activity. Assistance may be provided throughout the activity or intermittently. 3-Partial/Moderate Assistance-helper does LESS THAN HALF the effort. [place] lifts, holds or supports trunk or limbs, but provides less than half the effort. 2-Substantial/Maximal Assistance-helper does MORE THAN HALF the effort. [place] lifts or holds trunk or limbs and provides more than half the effort. 2-Fvnghrdnx-kndncw does ALL the effort. Patient does none of the effort to complete the activity. Or, the assistance of 2 or more helpers is required for the patient to complete the activity. If activity was not attempted, code reason: 7-Patient Refused. 9-Not Applicable-not attempted and the patient did not perform the activity before the current illness, exacerbation or injury. 10-Not Attempted due to Environmental Limitations-(lack of equipment, weather restraints, etc.). 88-Not Attempted due to Medical Conditions or Safety Concerns. Roll Left & Right (QC): 1 Weight Bearing Right Lower Extremity: Right Weight Bearing/Tolerated Left Lower Extremity: Left Weight Bearing/Tolerated Neuromuscular After several attempts to get pt up to sit with her resisting or going completely limp. Pt propped up in bed and rearranged to offload the L side. Assessment Current Status: Poor Progress Pt unable to answer questions or respond to any cueing for active participation in therapy this date. PT Mcc Goals Mcc Goals PT Student Ambassador Goals Time Frame: Nov 03, 2022 Roll Left & Right (QC): 6 Sit to Lying (QC): 6 Lying-Sitting on Side/Bed(QC): 6 Sit to Stand (QC): 6 Chair/Ajp-ev-Lnbpn Xfer(QC): 4 Toilet Transfer (QC): 4 PT Plan Problem List Problem List: Activity Tolerance, Functional Strength, Safety, Balance, Gait, Transfer, Bed Mobility, ROM Treatment/Plan Treatment Plan: Continue Plan of Care Treatment Plan: Bed Mobility, Education, Functional Activity Kelechi, Functional Strength, Gait, Safety, Therapeutic Exercise, Transfers Treatment Duration: Nov 03, 2022 Frequency: 6 times per week Estimated Hrs Per Day: .25 hour per day Patient and/or Family Agrees t: Yes Time Time In: 828 Time Out: 836 DATE: Oct 23, 2022 Total Billed Treatment Time: 8 Total Billed Treatment 1 visit FA (8") SHYLA NINA PT Oct 23, 2022 08:47
[2022-10-23] MEDS: SENNOSIDES 8.6 MG (SENOKOT) TAB PO SCH ×2 (08:59→20:30)
[2022-10-23] MEDS: FERROUS SULF 325 MG (IRON) TAB PO SCH (08:59)
[2022-10-23] MEDS: DOCUSATE SODIUM 100 MG (COLACE) CAP PO SCH ×2 (08:59→20:30)
[2022-10-23] MEDS: ASPIRIN 81 MG CHEW (CHILDREN'S ASA) PO SCH (08:59)
[2022-10-23] MEDS: PANTOPRAZOLE 20 MG TABLET (PROTONIX) PO SCH (08:59)
[2022-10-23] MEDS: VITAMIN D3 125 MCG (5,000 UNITS) CAPSULE PO SCH (08:59)
[2022-10-23] MEDS: LOSARTAN 100 MG (COZAAR) TABLET PO SCH (09:00)
[2022-10-23] MEDS: ENOXAPARIN 40 MG/0.4 ML (LOVENOX) SYR SC SCH (09:00)
[2022-10-23] MEDS: amLODIPine 5 MG (NORVASC) TAB PO SCH ×2 (09:00→20:30)
[2022-10-23] MEDS: meTOprolol TARTRATE 50 MG (LOPRESSOR) TAB PO SCH ×2 (09:00→20:31)
[2022-10-23] MEDS ORDERED: KCL 20 MEQ TAB (K-DUR) PO ONE (09:45)
[2022-10-23] MEDS ORDERED: cloNIDine 0.1 MG (CATAPRES) TAB PO ONE (09:45)
--- NOTE | 2022-10-23 13:16 | Progress Note ---
Subjective Subjective/Events-last exam Moves when touched and says "huh" to name, but doesn't open eyes or answer questions. Moving all extremities when she is stimulated. Objective Exam Last Set of Vital Signs Vital Signs Date Time Temp Pulse Resp B/P (MAP) Pulse Ox O2 Delivery O2 Flow Rate FiO2 10/23/22 12:05 187/78 (114) 10/23/22 11:37 37.2 83 16 91 Room Air 10/23/22 08:16 0.00 10/21/22 02:57 28 Capillary Refill : Less Than 3 Seconds I&O Intake and Output 10/23/22 00:00 Intake Total 4090 ml Output Total 3300 ml Balance 790 ml Intake Oral 1090 ml IV Total 3000 ml Output Urine Total 3300 ml General: No Acute Distress Lungs: Clear to Auscultation Heart: Regular Rate, No Murmurs Abdomen: Normal Bowel Sounds, Soft Extremities: No Edema Psych/Mental Status: Other (see HPI) Results/Procedures Lab Laboratory Tests 10/22/22 20:17: Glucometer 368H 10/23/22 05:13: White Blood Count 11.3H, Red Blood Count 4.84, Hemoglobin 13.5, Hematocrit 40, Mean Corpuscular Volume 83, Mean Corpuscular Hemoglobin 28, Mean Corpuscular Hemoglobin Concent 34, Red Cell Distribution Width 14.8H, Platelet Count 115L, Mean Platelet Volume 10.0, Immature Granulocyte % (Auto) 1, Neutrophils (%) (Auto) 78H, Lymphocytes (%) (Auto) 12, Monocytes (%) (Auto) 7, Eosinophils (%) (Auto) 1, Basophils (%) (Auto) 0, Neutrophils # (Auto) 8.9H, Lymphocytes # (Auto) 1.4, Monocytes # (Auto) 0.8, Eosinophils # (Auto) 0.2, Basophils # (Auto) 0.0, Immature Granulocyte # (Auto) 0.1, Sodium Level 139, Potassium Level 3.5L, Chloride Level 102, Carbon Dioxide Level 22, Anion Gap 15H, Blood Urea Nitrogen 30H, Creatinine 1.47H, Estimat Glomerular Filtration Rate 37, BUN/Creatinine Ra lorelei 20, Glucose Level 346H, Calcium Level 10.1, Corrected Calcium 9.9, Total Bilirubin 0.8, Aspartate Amino Transf (AST/SGOT) 23, Alanine Aminotransferase (ALT/SGPT) 17, Alkaline Phosphatase 53, Total Protein 7.5, Albumin 4.2 10/23/22 10:23: Glucometer 443*H Microbiology 10/19/22 Blood Culture - Preliminary, Resulted Coryneform bacteria Assessment/Plan Assessment/Plan (1) Altered mental status Status: Acute Assessment & Plan: CT head on 10/19 and repeat today without acute findings. No evidence of UTI, CXR without clear pneumonia and labs not consistent with infection. UDS on admit negative. One blood culture with corynebacterium, unclear if true infection, further ID pending. 10/23 persistent confusion, no speaking, will obtain MRI given no other explanations noted at this time. Qualifiers: Qualified Codes: R40.0 - Somnolence (2) Diabetes mellitus Status: Chronic Assessment & Plan: With marked hyperglycemia, on insulin at home, will start long acting, continue sliding scale insulin. 10/23 persistent hyperglycemia, increase basal to 10 units BID. 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 Start HCTZ today. (5) CKD (chronic kidney disease) Status: Chronic (6) DVT prophylaxis Status: Acute Assessment & Plan: Enoxaparin EMILIA GRANDE MD Oct 23, 2022 13:16
[2022-10-23] MEDS ORDERED: NS 100 ML (IVPB) BAG IV ONE (16:30)
[2022-10-23] MEDS ORDERED: HOLD METFORMIN - RECEIVED CONTRAST 20 ML VIAL IV SCH (16:30)
[2022-10-23] MEDS ORDERED: IOHEXOL 350 MG/ML 100 ML (OMNIPAQUE 350) VIAL IV ONE (16:30)
[2022-10-23] MEDS ORDERED: CATHETER FLUSH 10 ML SYR IV PRN (16:30)
--- NOTE | 2022-10-23 17:06 | Diagnostic Imaging Report ---
HISTORY: Aortic dissection COMPARISON: None TECHNIQUE: Axial CT of the chest and abdomen was performed following intravenous administration of contrast for angiographic evaluation of the arterial structures with sagittal and coronal MIP reformats. All CT scans use one or more of the following dose optimizing techniques: automated exposure control, MA and/or KvP adjustment based on patient size and exam type or iterative reconstruction. FINDINGS: The heart is normal in size. There is no pericardial effusion. There is moderate atherosclerosis at the aortic arch and moderate to marked atherosclerosis in the descending and abdominal aorta. No high-grade stenosis is seen. No aneurysm is seen. The branch vessels at the aortic arch demonstrate atherosclerosis with less than 50% stenosis, although there does appear to be about 50% stenosis in the proximal left common carotid artery. The celiac trunk and SMA demonstrate no stenosis. The renal arteries have mild atherosclerosis without stenosis. The ODILIA appears patent. No mediastinal adenopathy is seen. There is no axillary adenopathy. There is no pleural effusion. There is dependent atelectasis. No central endobronchial lesions are seen. No pneumothorax is seen. There does appear to be fatty infiltration of the liver. There are calcified granulomas in the spleen. The pancreas appears mildly atrophic but otherwise unremarkable. The adrenal glands are mildly thickened but no nodule is seen. No enhancing lesions are seen in the kidneys. The left kidney is mildly atrophic. The appendix is partially seen and appears normal. There is diverticulosis in the colon without diverticulitis. No free fluid or free air is seen. No distended loops of bowel are seen. No acute osseous abnormality is seen. There are degenerative changes in the spine. There does appear to be spinal canal stenosis at multiple levels, most pronounced at L2-L3 and L3-L4. IMPRESSION: 1. Moderate to marked atherosclerosis in the aorta with no dissection or aneurysm seen. There is about 50% stenosis in the proximal left common carotid artery. 2. Hepatic steatosis. 3. Atrophic left kidney. 4. Degenerative change in the lumbar spine with spinal canal stenosis at L2-L3 and L3-L4. Dictated by: Dictated on workstation # [id number]
[2022-10-23] MEDS ORDERED: inSUlin (REGULAR) HUMAN 1 UNIT/0.01 ML (CHARGE PER UNIT) SC ONE (17:45)
[2022-10-23] MEDS: NS IV 1000 ML 1,000 ML IV SCH (17:52)
[2022-10-23] MEDS: ROSUVASTATIN 20 MG (CRESTOR) TABLET PO SCH (20:30)
[2022-10-24] VITALS (7 sets, daily range): BP systolic 127–150; BP diastolic 63–89
[2022-10-24] MEDS: ACETAMINOPHEN 500 MG TAB (TYLENOL) PO SCH ×3 (00:29→16:51)
[2022-10-24] MEDS: NS IV 1000 ML 1,000 ML IV SCH ×3 (01:56→23:14)
[2022-10-24] MEDS: RT-ALBUTEROL/IPRATROPIUM 3 ML (DUONEB) VIAL INH SCH ×3 (03:19→21:11)
[2022-10-24 05:14] LABS: ALBUMIN 4.1 GM/DL (3.2-4.5); POTASSIUM 5.3 MMOL/L (3.6-5.0)
[2022-10-24 05:16] LABS: TOTAL PROTEIN 8.3 GM/DL (6.4-8.2)
[2022-10-24 05:18] LABS: BASOPHILS # (AUTO) 0.1 10^3/uL (0.0-0.1); BASOPHILS % (AUTO) 1 % (0-10); EOSINOPHILS # (AUTO) 0.1 10^3/uL (0.0-0.3); EOSINOPHILS % (AUTO) 1 % (0-10); HEMATOCRIT 39 % (35-52); HEMOGLOBIN 13.3 g/dL (11.5-16.0); LYMPHOCYTES # (AUTO) 1.7 10^3/uL (1.0-4.0); LYMPHOCYTES % (AUTO) 16 % (12-44); MEAN CORPUSCULAR HEMOGLOBIN 28 pg (25-34); MEAN CORPUSCULAR HGB CONC 34 g/dL (32-36); MEAN CORPUSCULAR VOLUME 83 fL (80-99); MEAN PLATELET VOLUME 9.8 fL (9.0-12.2); MONOCYTES # (AUTO) 0.8 10^3/uL (0.0-1.0); MONOCYTES % (AUTO) 8 % (0-12); NEUTROPHILS # (AUTO) 7.8 10^3/uL (1.8-7.8); NEUTROPHILS % (AUTO) 74 % (42-75); PLATELET COUNT 131 10^3/uL (130-400); WHITE BLOOD COUNT 10.5 10^3/uL (4.3-11.0)
[2022-10-24 05:18] LABS: BILIRUBIN,TOTAL 0.7 MG/DL (0.1-1.0)
[2022-10-24 05:20] LABS: CREATININE SERUM 1.79 MG/DL (0.60-1.30)
[2022-10-24] MEDS: inSUlin ASPART (NovoLOG) 1 UNIT/0.01 ML (CHARGE PER UNIT) SC SCH ×4 (05:38→20:48)
[2022-10-24] MEDS: meTOprolol TARTRATE 50 MG (LOPRESSOR) TAB PO SCH ×2 (08:07→20:44)
[2022-10-24] MEDS: LOSARTAN 100 MG (COZAAR) TABLET PO SCH (08:07)
[2022-10-24] MEDS: VITAMIN D3 125 MCG (5,000 UNITS) CAPSULE PO SCH (08:07)
[2022-10-24] MEDS: SENNOSIDES 8.6 MG (SENOKOT) TAB PO SCH ×2 (08:07→20:44)
[2022-10-24] MEDS: ASPIRIN 81 MG CHEW (CHILDREN'S ASA) PO SCH (08:07)
[2022-10-24] MEDS: amLODIPine 5 MG (NORVASC) TAB PO SCH ×2 (08:08→20:44)
[2022-10-24] MEDS: PANTOPRAZOLE 20 MG TABLET (PROTONIX) PO SCH (08:08)
[2022-10-24] MEDS: FERROUS SULF 325 MG (IRON) TAB PO SCH (08:08)
[2022-10-24] MEDS: DOCUSATE SODIUM 100 MG (COLACE) CAP PO SCH ×2 (08:08→20:44)
[2022-10-24] MEDS: ENOXAPARIN 40 MG/0.4 ML (LOVENOX) SYR SC SCH (08:09)
--- NOTE | 2022-10-24 08:59 | Occupational Ther Daily Note ---
OT Current Status-Daily Note Subjective Laying restlessly in bed, uncovered and one sock on. Recliner positioned to transfer 90 degrees from bed for set up of meal. Assist of additional person for transfer. Patient pushes left firmly and requires OT to reposition self to increase safety w/ transfer using gait belt no FWW Mental Status/Objective Patient Orientation: Unable to Assess, Non-Verbal/Aphasic, Eyes Open (patient does follow voice as OT moves in rrom) Attachments: Slater Catheter, IV, Oxygen ADL-Treatment Transfer to recliner w/ chair alarm x2 persons w/ BED height elevated, set up of m eal on bed tray table. OT cut and prepared condiments and inserted straw to milk carton.Patent did not initiate any purposeful intention for feeding, Patient did raise right hand and scratch her head once. Opens mouth when utensil and food grazes lips. Ate 4 bites of Uzbek toast, 2 orange segments and 1/2 carton of milk with OT Therapy Code Descriptions/Definitions Functional [place] Measure: 0=Not Assessed/NA 4=Minimal Assistance 1=Total Assistance 5=Supervision or Setup 2=Maximal Assistance 6=Modified [place] 3=Moderate Assistance 7=Complete IndependenceSCALE: Activities may be completed with or without assistive devices. 4-Nzcahjsvbx-yohpkbz completes the activity by him/herself with no assistance from a helper. 5-Set-up or Clean-up Assistance-helper sets up or cleans up; patient completes activity. [place] assists only prior to or following the activity. 4-Supervision or Touching Assistance-helper provides verbal cues and/or touching/steadying and/or contact guard assistance as patient completes activity. Assistance may be provided throughout the activity or intermittently. 3-Partial/Moderate Assistance-helper does LESS THAN HALF the effort. [place] lifts, holds or supports trunk or limbs, but provides less than half the effort. 2-Substantial/Maximal Assistance-helper does MORE THAN HALF the effort. [place] lifts or holds trunk or limbs and provides more than half the effort. 0-Wbbrimopf-qottbs does ALL the effort. Patient does none of the effort to complete the activity. Or, the assistance of 2 or more helpers is required for the patient to complete the activity. If activity was not attempted, code reason: 7-Patient Refused. 9-Not Applicable-not attempted and the patient did not perform the activity before the current illness, exacerbation or injury. 10-Not Attempted due to Environmental Limitations-(lack of equipment, weather restraints, etc.). 88-Not Attempted due to Medical Conditions or Safety Concerns. Eating (QC): 2 Oral Hygiene (QC): 7 Shower/Bathe Self (QC): 88 Upper Body Dressing (QC): 1 Lower Body Dressing (QC): 1 On/Off Footwear: 1 Toileting Hygiene (QC): 1 Toilet Transfer (QC): 1 Education OT Patient Education: Correct positioning, Modified ADL techniques, Progress toward Goal/Update tx plan, Purpose of tx/functional activities, Reviewed precautions, Rehab process, Transfer techniques Teaching Recipient: Patient Teaching Methods: Demonstration, Discussion Response to Teaching: Unable to Return Demonstration, Unable to Comprehend, Reinforcement Needed OT Group Home Goals Group Home Goals Time Frame: Nov 03, 2022 Eating (QC): 5 Oral Hygiene (QC): 5 Toileting Hygiene (QC): 5 Shower/Bathe Self (QC): 3 Upper Body Dressing (QC): 5 Lower Body Dressing (QC): 3 On/Off Footwear (QC): 1 Additional Goals: 1-Demonstrate ADL Tasks, 2-Verbalize Understanding, 3- ImproveStrength/Kelechi 1=Demonstrate adherence to instructed precautions during ADL tasks. 2=Patient will verbalize/demonstrate understanding of assistive devices/modifications for ADL. 3=Patient will improve strength/tolerance for activity to enable patient to perform ADL's. OT Education/Plan Problem List/Assessment Assessment: Decreased Activ Tolerance, Decreased Safety Aware, Decreased UE Strength, Dependent Transfers, Impaired Bed Mobility, Impaired Cognition, Impaired Coordination, Impaired Funct Balance, Impaired Self-Care Skills Pt would benefit from skilled OT to increase her independence in basic self care and decrease caregiver burden. Discharge Recommendations Plan/Recommendations: Continue POC Treatment Plan/Plan of Care Treatment,Training & Education: Yes Patient would benefit from OT for education, treatment and training to promote independence in ADL's, mobility, safety and/or upper extremity function for ADL's. Plan of Care: ADL Retraining, Functional Mobility, UE Funct Exercise/Act Treatment Duration: Nov 03, 2022 Frequency: 5 times per week (4-5 times a week) Estimated Hrs Per Day: .25 hour per day Agreement: No (unable to agree verbally) Rehab Potential: Fair Time Start Time: 08:27 Stop Time: 08:53 DATE: Oct 24, 2022 Total Time Billed (hr/min): 26 Billed Treatment Time ADL 2 26 HANSEL FLANAGAN OT Oct 24, 2022 08:58
[2022-10-24] MEDS ORDERED: GLIM4TAB5 PO (09:11)
[2022-10-24] MEDS ORDERED: ALB0.5V INH (09:11)
[2022-10-24] MEDS ORDERED: INSU300I3 SC (09:11)
[2022-10-24] MEDS ORDERED: INSU100I14 SQ ×2 (09:11)
[2022-10-24] MEDS ORDERED: ESCI20TA39 PO (09:11)
[2022-10-24] MEDS ORDERED: GUAI5SYR PO (09:11)
[2022-10-24] MEDS ORDERED: TRAM50TA3 PO (09:11)
[2022-10-24] MEDS ORDERED: CARB10DR OD (09:11)
[2022-10-24] MEDS ORDERED: GUAI600T43 PO (09:11)
[2022-10-24] MEDS ORDERED: ALBU8.5H6 INH (09:11)
[2022-10-24] MEDS ORDERED: DICL100G13 TP (09:11)
[2022-10-24] MEDS ORDERED: ACET-2267 PO (09:11)
--- NOTE | 2022-10-24 10:19 | Physical Therapy Daily Note ---
PT Daily Note-Current Subjective Pt found seated in recliner upon entry. Unable to verbalize throughout visit and has difficulty staying attentive. Pain Section J - Health Conditions 1. Rarely or not at all 2. Occasionally 3. Frequently 4. Almost constantly 8. Unable to answer Pain Effect on Sleep: 1 Pain Interference with Therapy: 1 Pain Interference w/Day-to-Day: 1 Mental Status Patient Orientation: Confused Attachments: Slater Catheter Transfers SCALE: Activities may be completed with or without assistive devices. 1-Fbvqgswhnl-fadpedn completes the activity by him/herself with no assistance from a helper. 5-Set-up or Clean-up Assistance-helper sets up or cleans up; patient completes activity. [place] assists only prior to or following the activity. 4-Supervision or Touching Assistance-helper provides verbal cues and/or touching/steadying and/or contact guard assistance as patient completes activity. Assistance may be provided throughout the activity or intermittently. 3-Partial/Moderate Assistance-helper does LESS THAN HALF the effort. [place] lifts, holds or supports trunk or limbs, but provides less than half the effort. 2-Substantial/Maximal Assistance-helper does MORE THAN HALF the effort. [place] lifts or holds trunk or limbs and provides more than half the effort. 1-Iwrfftffq-ayibzn does ALL the effort. Patient does none of the effort to complete the activity. Or, the assistance of 2 or more helpers is required for the patient to complete the activity. If activity was not attempted, code reason: 7-Patient Refused. 9-Not Applicable-not attempted and the patient did not perform the activity before the current illness, exacerbation or injury. 10-Not Attempted due to Environmental Limitations-(lack of equipment, weather restraints, etc.). 88-Not Attempted due to Medical Conditions or Safety Concerns. Weight Bearing Right Lower Extremity: Right Weight Bearing/Tolerated Left Lower Extremity: Left Weight Bearing/Tolerated Gait Training Does the Patient Walk?: No and Walking Goal IS indicated Treatments Seated Therapeutic Exercises (B) (in recliner): Quad sets x 10 SLRs x 10 Ankle pumps x 10 Hip abd/add x 10 Assessment Current Status: Poor Progress Pt displays signs of fatigue throughout visit and has difficulty staying awake. Minimal responses to verbal cues. AAROM required for all completed therapeutic exercises. Continue to progress per POC to improve strength, endurance, and functional ability. PT Fpc Goals Fpc Goals PT Highway Patrol Pilot Goals Time Frame: Nov 03, 2022 Roll Left & Right (QC): 6 Sit to Lying (QC): 6 Lying-Sitting on Side/Bed(QC): 6 Sit to Stand (QC): 6 Chair/Tcu-lh-Mdtfp Xfer(QC): 4 Toilet Transfer (QC): 4 PT Plan Treatment/Plan Treatment Plan: Continue Plan of Care Treatment Plan: Bed Mobility, Education, Functional Activity Kelechi, Functional Strength, Gait, Safety, Therapeutic Exercise, Transfers Treatment Duration: Nov 03, 2022 Frequency: 6 times per week Estimated Hrs Per Day: .25 hour per day Patient and/or Family Agrees t: Yes Time Time In: 905 Time Out: 913 DATE: Oct 24, 2022 Total Billed Treatment Time: 8 Total Billed Treatment 1 visit EX x 1 LUISA CORNLEL INVESTOR RELATIONS ASSOCIATE Oct 24, 2022 10:19
[2022-10-24] MEDS ORDERED: LORazepam INJ 2 MG/ML (ATIVAN) VIAL IVP NR (12:00)
[2022-10-24 12:41] LABS: ABG BASE EXCESS 0.6 MMOL/L (-2.5-2.5); ABG OXYGEN SATURATION 93 % (94-100); ABG PCO2 36 MMHG (35-45); ABG PH 7.44 (7.37-7.43); ABG PO2 62 MMHG (79-93); ABG TCO2 25.4 MMOL/L (21.0-31.0)
[2022-10-24 12:45] LABS: ALLENS TEST YES-POS; INSPIRED O2 ROOM AIR; PATIENT TEMP 37; VENTILATOR NO
--- NOTE | 2022-10-24 14:42 | Diagnostic Imaging Report ---
PROCEDURE: MR imaging of the brain without contrast. TECHNIQUE: Multiplanar, multisequence MR imaging of the brain was performed without contrast. INDICATION: Cerebrovascular accident. COMPARISON: Correlation is made with noncontrast head CT performed on 10/22/2022. FINDINGS: The study is compromised due to patient motion. The ventricles and sulci are prominent consistent with cerebral volume loss. There are periventricular white matter changes as well as subcortical white matter changes, consistent with chronic microvascular ischemia. No midline shift is identified. There is no diffusion restriction. The normal expected flow-voids within the carotid siphons are seen. No acute intra-axial or extra-axial hemorrhage is detected. Corpus callosum is unremarkable. The sella and parasellar structures are unremarkable. IMPRESSION: Changes of chronic microvascular ischemia and cerebral atrophy. No acute intracranial process is detected. Dictated by: Dictated on workstation # [id number]
--- NOTE | 2022-10-24 16:45 | Progress Note ---
Subjective Subjective/Events-last exam No changes ON. Patient continues to be non verbal Review of Systems Unable to evaluate due to nonverbal Objective Exam Last Set of Vital Signs Vital Signs Date Time Temp Pulse Resp B/P (MAP) Pulse Ox O2 Delivery O2 Flow Rate FiO2 10/24/22 15:25 36.6 75 18 143/63 (89) 91 Nasal Cannula 2.00 10/21/22 02:57 28 Capillary Refill : Less Than 3 Seconds I&O Intake and Output 10/24/22 00:00 Intake Total 1190 ml Output Total 2075 ml Balance -885 ml Intake Oral 1190 ml Output Urine Total 2075 ml General: No Acute Distress, Other (Awake, non verbal) Lungs: Clear to Auscultation, Normal Air Movement Heart: Regular Rate, No Murmurs Abdomen: Soft Extremities: Other (1+ pitting edema) Results/Procedures Lab Laboratory Tests 10/23/22 16:42: Glucometer 491*H 10/23/22 20:17: Glucometer 384H 10/24/22 04:44: Sodium Level 140, Potassium Level 5.3H, Chloride Level 108H, Carbon Dioxide Level 17L, Anion Gap 15H, Blood Urea Nitrogen 38H, Creatinine 1.79H, Estimat Glomerular Filtration Rate 29, BUN/Creatinine Ratio 21, Glucose Level 346H, Calcium Level 10.0, Corrected Calcium 9.9, Total Bilirubin 0.7, Aspartate Amino Transf (AST/SGOT) 41H, Alanine Aminotransferase (ALT/SGPT) 16, Alkaline Phosphatase 53, Total Protein 8.3H, Albumin 4.1 10/24/22 05:10: White Blood Count 10.5, Red Blood Count 4.74, Hemoglobin 13.3, Hematocrit 39, Mean Corpuscular Volume 83, Mean Corpuscular Hemoglobin 28, Mean Corpuscular Hemoglobin Concent 34, Red Cell Distribution Width 14.6H, Platelet Count 131, Mean Platelet Volume 9.8, Immature Granulocyte % (Auto) 1, Neutrophils (%) (Auto) 74, Lymphocytes (%) (Auto) 16, Monocytes (%) (Auto) 8, Eosinophils (%) (Auto) 1, Basophils (%) (Auto) 1, Neutrophils # (Auto) 7.8, Lymphocytes # (Auto) 1.7, Monocytes # (Auto) 0.8, Eosinophils # (Auto) 0.1, Basophils # (Auto) 0.1, Immature Granulocyte # (Auto) 0.1 10/24/22 10:29: Glucometer 387H 10/24/22 12:31: Blood Gas Puncture Site L RAD, Blood Gas Patient Temperature 37, Arterial Blood pH 7.44H, Arterial Blood Partial Pressure CO2 36, Arterial Blood Partial Pressure O2 62L, Arterial Blood HCO3 24, Arterial Blood Total CO2 25.4, Arterial Blood Oxygen Saturation 93L, Arterial Blood Base Excess 0.6, Nael Test YES-POS, Blood Gas Ventilator Setting NO, Blood Gas Inspired Oxygen ROOM AIR 10/24/22 14:48: Glucometer 335H 10/24/22 15:28: Glucometer 352H Microbiology 10/19/22 Blood Culture - Final, Complete Corynebacterium JK(Jeikeium) Corynebacterium species No Susceptibility Performed Assessment/Plan Assessment/Plan (1) Altered mental status Status: Acute Assessment & Plan: CT head on 10/19 and repeat today without acute findings. No evidence of UTI, CXR without clear pneumonia and labs not consistent with infection. UDS on admit negative. One blood culture with corynebacterium, unclear if true infection, further ID pending. 10/23 persistent confusion, no speaking, will obtain MRI given no other ex planations noted at this time. 10/24: MRI showed chronic microvascular changes, no acute changes, seems to be more of decline due to worsening chronic conditions Qualifiers: Qualified Codes: R40.0 - Somnolence (2) Diabetes mellitus Status: Chronic Assessment & Plan: With marked hyperglycemia, on insulin at home, will start long acting, continue sliding scale insulin. 10/23 persistent hyperglycemia, increase basal to 10 units BID. 10/24: Basal insulin increased to 20 units BID Qualifiers: Qualified Codes: E11.65 - Type 2 diabetes mellitus with hyperglycemia; Z79.4 - nursing home (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 of insulin (3) Hyperlipidemia Status: Chronic (4) Hypertension Status: Chronic Assessment & Plan: Severe, increased metoprolol dose and resumed losartan, but Cr bumped up again with resuming losartan, will monitor closely. Start HCTZ today. (5) CKD (chronic kidney disease) Status: Chronic (6) DVT prophylaxis Status: Acute Assessment & Plan: Enoxaparin (7) Discharge planning issues Assessment & Plan: 10/24: Will make contact with family as they were not present today, Would recommend hospice at discharge back to [place] NICOLASA CINTRON MD Oct 24, 2022 16:45
[2022-10-24] MEDS: ROSUVASTATIN 20 MG (CRESTOR) TABLET PO SCH (20:44)
[2022-10-24] MEDS: TOBRAMYCIN (TOBREX) 0.3% OP OINT 3.5 GM TUBE OU SCH (20:47)
[2022-10-25] MEDS: ACETAMINOPHEN 500 MG TAB (TYLENOL) PO SCH ×3 (01:59→17:10)
[2022-10-25 03:56] VITALS: BP 136/91
[2022-10-25 05:25] LABS: BASOPHILS % (AUTO) 0 % (0-10); EOSINOPHILS # (AUTO) 0.4 10^3/uL (0.0-0.3); EOSINOPHILS % (AUTO) 4 % (0-10); HEMATOCRIT 40 % (35-52); HEMOGLOBIN 13.3 g/dL (11.5-16.0); LYMPHOCYTES # (AUTO) 2.1 10^3/uL (1.0-4.0); LYMPHOCYTES % (AUTO) 19 % (12-44); MEAN CORPUSCULAR HEMOGLOBIN 28 pg (25-34); MEAN CORPUSCULAR HGB CONC 33 g/dL (32-36); MEAN CORPUSCULAR VOLUME 85 fL (80-99); MEAN PLATELET VOLUME 10.1 fL (9.0-12.2); MONOCYTES # (AUTO) 0.9 10^3/uL (0.0-1.0); MONOCYTES % (AUTO) 8 % (0-12); NEUTROPHILS # (AUTO) 7.5 10^3/uL (1.8-7.8); NEUTROPHILS % (AUTO) 69 % (42-75); PLATELET COUNT 138 10^3/uL (130-400); WHITE BLOOD COUNT 10.9 10^3/uL (4.3-11.0)
[2022-10-25] MEDS: inSUlin ASPART (NovoLOG) 1 UNIT/0.01 ML (CHARGE PER UNIT) SC SCH ×4 (05:28→20:35)
[2022-10-25 05:36] LABS: ALBUMIN 3.8 GM/DL (3.2-4.5); POTASSIUM 3.2 MMOL/L (3.6-5.0)
[2022-10-25 05:37] LABS: CALCIUM 9.4 MG/DL (8.5-10.1)
[2022-10-25 05:38] LABS: TOTAL PROTEIN 6.7 GM/DL (6.4-8.2)
[2022-10-25 05:40] LABS: BILIRUBIN,TOTAL 0.5 MG/DL (0.1-1.0)
[2022-10-25 05:42] LABS: CREATININE SERUM 1.59 MG/DL (0.60-1.30)
[2022-10-25] MEDS: RT-ALBUTEROL/IPRATROPIUM 3 ML (DUONEB) VIAL INH SCH ×2 (06:54→21:12)
[2022-10-25 07:21] VITALS: BP 142/81
--- NOTE | 2022-10-25 07:54 | Physical Therapy Progress Note ---
Therapy Progress Note Patient not progressing with skilled PT due to current medical condition. PT to dismiss patient from services at this time. RUIZ LYNN PT Oct 25, 2022 07:54
[2022-10-25] MEDS: SENNOSIDES 8.6 MG (SENOKOT) TAB PO SCH ×2 (08:18→20:35)
[2022-10-25] MEDS: ASPIRIN 81 MG CHEW (CHILDREN'S ASA) PO SCH (08:18)
[2022-10-25] MEDS: amLODIPine 5 MG (NORVASC) TAB PO SCH ×2 (08:18→20:35)
[2022-10-25] MEDS: meTOprolol TARTRATE 50 MG (LOPRESSOR) TAB PO SCH ×2 (08:18→20:35)
[2022-10-25] MEDS: VITAMIN D3 125 MCG (5,000 UNITS) CAPSULE PO SCH (08:18)
[2022-10-25] MEDS: PANTOPRAZOLE 20 MG TABLET (PROTONIX) PO SCH (08:18)
[2022-10-25] MEDS: DOCUSATE SODIUM 100 MG (COLACE) CAP PO SCH ×2 (08:19→20:35)
[2022-10-25] MEDS: LOSARTAN 100 MG (COZAAR) TABLET PO SCH (08:19)
[2022-10-25] MEDS: FERROUS SULF 325 MG (IRON) TAB PO SCH (08:19)
[2022-10-25] MEDS: ENOXAPARIN 40 MG/0.4 ML (LOVENOX) SYR SC SCH (08:20)
[2022-10-25] MEDS: NS IV 1000 ML 1,000 ML IV SCH ×2 (08:20→20:34)
[2022-10-25] MEDS: TOBRAMYCIN (TOBREX) 0.3% OP OINT 3.5 GM TUBE OU SCH ×3 (08:21→21:32)
[2022-10-25 11:25] VITALS: BP 113/65
--- NOTE | 2022-10-25 12:57 | Occupational Ther Daily Note ---
OT Current Status-Daily Note Subjective upright in bed w/ meal placed over bed on tray table, more alert however remains minimally verbal Mental Status/Objective Patient Orientation: Non-Verbal/Aphasic, Eyes Open Attachments: Slater Catheter, IV ADL-Treatment OT positioned recliner perpendicular to bed, applied gait belt and elevated bed, OT performed bed to recliner transfer Max assist of one. Therapy Code Descriptions/Definitions Functional [place] Measure: 0=Not Assessed/NA 4=Minimal Assistance 1=Total Assistance 5=Supervision or Setup 2=Maximal Assistance 6=Modified [place] 3=Moderate Assistance 7=Complete IndependenceSCALE: Activities may be completed with or without assistive devices. 6-Vmpkhcjovd-ekcnzga completes the activity by him/herself with no assistance from a helper. 5-Set-up or Clean-up Assistance-helper sets up or cleans up; patient completes activity. [place] assists only prior to or following the activity. 4-Supervision or Touching Assistance-helper provides verbal cues and/or touching/steadying and/or contact guard assistance as patient completes activity. Assistance may be provided throughout the activity or intermittently. 3-Partial/Moderate Assistance-helper does LESS THAN HALF the effort. [place] lifts, holds or supports trunk or limbs, but provides less than half the effort. 2-Substantial/Maximal Assistance-helper does MORE THAN HALF the effort. [place] lifts or holds trunk or limbs and provides more than half the effort. 4-Ovrztvkcf-qnilml does ALL the effort. Patient does none of the effort to complete the activity. Or, the assistance of 2 or more helpers is required for the patient to complete the activity. If activity was not attempted, code reason: 7-Patient Refused. 9-Not Applicable-not attempted and the patient did not perform the activity before the current illness, exacerbation or injury. 10-Not Attempted due to Environmental Limitations-(lack of equipment, weather restraints, etc.). 88-Not Attempted due to Medical Conditions or Safety Concerns. Eating (QC): 3 Oral Hygiene (QC): 2 (no teeth) OT set patient up in recliner to complete meal, patient followed commands to assist w/ transfer. Yesterday 2+ person required to move patient. Patient reaches for utensils and uses appropriately for 2-3 bites of food requires opening and set up and cutting. Patient does not wipe mouth or make full lip closure on straw, spills 50% of food. Apron placed over belly. Education OT Patient Education: Correct positioning, Modified ADL techniques, Progress toward Goal/Update tx plan, Purpose of tx/functional activities, Reviewed precautions, Rehab process, Safety issues, Transfer techniques Teaching Recipient: Patient Teaching Methods: Demonstration, Discussion Response to Teaching: Unable to Comprehend, Reinforcement Needed OT Longterm Goals Longterm Goals Time Frame: Nov 03, 2022 Eating (QC): 5 Oral Hygiene (QC): 5 Toileting Hygiene (QC): 5 Shower/Bathe Self (QC): 3 Upper Body Dressing (QC): 5 Lower Body Dressing (QC): 3 On/Off Footwear (QC): 1 Additional Goals: 1-Demonstrate ADL Tasks, 2-Verbalize Understanding, 3-ImproveStrength/Kelechi 1=Demonstrate adherence to instructed precautions during ADL tasks. 2=Patient will verbalize/demonstrate understanding of assistive devices/modifications for ADL. 3=Patient will improve strength/tolerance for activity to enable patient to perform ADL's. OT Education/Plan Problem List/Assessment Pt would benefit from skilled OT to increase her independence in basic self care and decrease caregiver burden. Discharge Recommendations Plan/Recommendations: Continue POC Treatment Plan/Plan of Care Patient would benefit from OT for education, treatment and training to promote independence in ADL's, mobility, safety and/or upper extremity function for ADL's. Plan of Care: ADL Retraining, Functional Mobility, UE Funct Exercise/Act Treatment Duration: Nov 03, 2022 Frequency: 5 times per week (4-5 times a week) Estimated Hrs Per Day: .25 hour per day Agreement: No (unable to agree verbally) Rehab Potential: Fair Time Start Time: 08:46 Stop Time: 09:01 DATE: Oct 25, 2022 Total Time Billed (hr/min): 15 Billed Treatment Time ADL 15 min HANSEL FLANAGAN OT Oct 25, 2022 12:57
--- NOTE | 2022-10-25 14:25 | Progress Note ---
Subjective Subjective/Events-last exam Patient is awake and talking this AM. Slow to answer but answers coherently simple questions. Denies any pain. Tolerating PO diet. Has been working with PT. Review of Systems General: Fatigue Pulmonary: No Dyspnea, No Cough Cardiovascular: No: Chest Pain, Palpitations, Edema Gastrointestinal: No: Nausea, Vomiting, Abdominal Pain, Diarrhea, Constipation Neurological: Weakness, Incoordination, Confusion Objective Exam Last Set of Vital Signs Vital Signs Date Time Temp Pulse Resp B/P (MAP) Pulse Ox O2 Delivery O2 Flow Rate FiO2 10/25/22 13:00 69 10/25/22 11:25 36.5 18 113/65 (81) 92 Room Air 10/25/22 07:21 2.00 10/21/22 02:57 28 Capillary Refill : Less Than 3 Seconds I&O Intake and Output 10/25/22 00:00 Intake Total 460 ml Output Total 1675 ml Balance -1215 ml Intake Oral 460 ml Output Urine Total 1675 ml General: Alert, No Acute Distress Lungs: Clear to Auscultation, Normal Air Movement Heart: Regular Rate, No Murmurs Abdomen: Normal Bowel Sounds, Soft, No Tenderness Extremities: No Edema, No Tenderness/Swelling Results/Procedures Lab Laboratory Tests 10/24/22 14:48: Glucometer 335H 10/24/22 15:28: Glucometer 352H 10/24/22 19:40: Glucometer 269H 10/24/22 23:54: Glucometer 202H 10/25/22 05:05: White Blood Count 10.9, Red Blood Count 4.76, Hemoglobin 13.3, Hematocrit 40, Mean Corpuscular Volume 85, Mean Corpuscular Hemoglobin 28, Mean Corpuscular Hemoglobin Concent 33, Red Cell Distribution Width 14.6H, Platelet Count 138, Mean Platelet Volume 10.1, Immature Granulocyte % (Auto) 1, Neutrophils (%) (Auto) 69, Lymphocytes (%) (Auto) 19, Monocytes (%) (Auto) 8, Eosinophils (%) (Auto) 4, Basophils (%) (Auto) 0, Neutrophils # (Auto) 7.5, Lymphocytes # (Auto) 2.1, Monocytes # (Auto) 0.9, Eosinophils # (Auto) 0.4H, Basophils # (Auto) 0.0, Immature Granulocyte # (Auto) 0.1, Sodium Level 145, Potassium Level 3.2L, Chloride Level 113H, Carbon Dioxide Level 22, Anion Gap 10, Blood Urea Nitrogen 39H, Creatinine 1.59H, Estimat Glomerular Filtration Rate 34, BUN/Creatinine Ratio 25, Glucose Level 170H, Calcium Level 9.4, Corrected Calcium 9.6, Total Bilirubin 0.5, Aspartate Amino Transf (AST/SGOT) 28, Alanine Aminotransferase (ALT/SGPT) 17, Alkaline Phosphatase 47, Total Protein 6.7, Albumin 3.8 10/25/22 05:21: Glucometer 180H 10/25/22 10:47: Glucometer 434*H Microbiology 10/19/22 Blood Culture - Final, Complete Corynebacterium JK(Jeikeium) Corynebacterium species No Susceptibility Performed Assessment/Plan Assessment/Plan (1) Altered mental status Status: Acute Assessment & Plan: CT head on 10/19 and repeat today without acute findings. No evidence of UTI, CXR without clear pneumonia and labs not consistent with infection. UDS on admit negative. One blood culture with corynebacterium, unclear if true infection, further ID pending. 10/23 persistent confusion, no speaking, will obtain MRI given no other explanations noted at this time. 10/24: MRI showed chronic microvascular changes, no acute changes, seems to be more of decline due to worsening chronic conditions 10/25: Talking appropriately today, will monitor PO intake and plan for d/c back to facility tomorrow Qualifiers: Qualified Codes: R40.0 - Somnolence (2) Diabetes mellitus Status: Chronic Assessment & Plan: With marked hyperglycemia, on insulin at home, will start long acting, continue sliding scale insulin. 10/23 persistent hyperglycemia, increase basal to 10 units BID. 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 Start HCTZ today. (5) CKD (chronic kidney disease) Status: Chronic Assessment & Plan: 10/25: Encouraged PO hydration (6) DVT prophylaxis Status: Acute Assessment & Plan: Enoxaparin (7) Discharge planning issues Assessment & Plan: 10/24: Will make contact with family as they were not present today, Would recommend hospice at discharge back to [facility] 10/25: Patient alert and talking today, will plan on d/c back to [facility] tomorrow NICOLASA CINTRON MD Oct 25, 2022 14:25
[2022-10-25 15:19] VITALS: BP 118/58
[2022-10-25 19:36] VITALS: BP 100/53
[2022-10-25] MEDS: ROSUVASTATIN 20 MG (CRESTOR) TABLET PO SCH (20:36)
[2022-10-25 23:10] VITALS: BP 110/59
[2022-10-26] MEDS: ACETAMINOPHEN 500 MG TAB (TYLENOL) PO SCH ×2 (02:04→09:01)
[2022-10-26 03:52] VITALS: BP 145/63
[2022-10-26] MEDS: inSUlin ASPART (NovoLOG) 1 UNIT/0.01 ML (CHARGE PER UNIT) SC SCH ×2 (05:21→11:26)
[2022-10-26 06:07] LABS: BASOPHILS % (AUTO) 0 % (0-10); HEMOGLOBIN 11.5 g/dL (11.5-16.0)
[2022-10-26 06:09] LABS: EOSINOPHILS # (AUTO) 0.3 10^3/uL (0.0-0.3); EOSINOPHILS % (AUTO) 4 % (0-10); HEMATOCRIT 34 % (35-52); LYMPHOCYTES # (AUTO) 2.2 10^3/uL (1.0-4.0); LYMPHOCYTES % (AUTO) 25 % (12-44); MEAN CORPUSCULAR HEMOGLOBIN 29 pg (25-34); MEAN CORPUSCULAR HGB CONC 34 g/dL (32-36); MEAN CORPUSCULAR VOLUME 83 fL (80-99); MEAN PLATELET VOLUME 9.7 fL (9.0-12.2); MONOCYTES # (AUTO) 0.6 10^3/uL (0.0-1.0); MONOCYTES % (AUTO) 7 % (0-12); NEUTROPHILS # (AUTO) 5.6 10^3/uL (1.8-7.8); NEUTROPHILS % (AUTO) 64 % (42-75); PLATELET COUNT 122 10^3/uL (130-400); WHITE BLOOD COUNT 8.8 10^3/uL (4.3-11.0)
[2022-10-26 06:14] LABS: ALBUMIN 3.3 GM/DL (3.2-4.5); BILIRUBIN,TOTAL 0.5 MG/DL (0.1-1.0); CALCIUM 8.5 MG/DL (8.5-10.1); CREATININE SERUM 1.53 MG/DL (0.60-1.30); POTASSIUM 3.3 MMOL/L (3.6-5.0); TOTAL PROTEIN 5.6 GM/DL (6.4-8.2)
[2022-10-26 07:01] VITALS: BP 113/75
[2022-10-26] MEDS: amLODIPine 5 MG (NORVASC) TAB PO SCH (09:01)
[2022-10-26] MEDS: ASPIRIN 81 MG CHEW (CHILDREN'S ASA) PO SCH (09:01)
[2022-10-26] MEDS: FERROUS SULF 325 MG (IRON) TAB PO SCH (09:01)
[2022-10-26] MEDS: meTOprolol TARTRATE 50 MG (LOPRESSOR) TAB PO SCH (09:01)
[2022-10-26] MEDS: LOSARTAN 100 MG (COZAAR) TABLET PO SCH (09:01)
[2022-10-26] MEDS: DOCUSATE SODIUM 100 MG (COLACE) CAP PO SCH (09:01)
[2022-10-26] MEDS: PANTOPRAZOLE 20 MG TABLET (PROTONIX) PO SCH (09:01)
[2022-10-26] MEDS: VITAMIN D3 125 MCG (5,000 UNITS) CAPSULE PO SCH (09:01)
[2022-10-26] MEDS: ENOXAPARIN 40 MG/0.4 ML (LOVENOX) SYR SC SCH (09:02)
[2022-10-26] MEDS: SENNOSIDES 8.6 MG (SENOKOT) TAB PO SCH (09:02)
[2022-10-26] MEDS: TOBRAMYCIN (TOBREX) 0.3% OP OINT 3.5 GM TUBE OU SCH ×2 (09:03→13:18)
[2022-10-26] MEDS: NS IV 1000 ML 1,000 ML IV SCH (09:03)
[2022-10-26] MEDS: RT-ALBUTEROL/IPRATROPIUM 3 ML (DUONEB) VIAL INH SCH (09:17)
[2022-10-26] MEDS ORDERED: KCL 20 MEQ TAB (K-DUR) PO NR (10:00)
--- NOTE | 2022-10-26 10:20 | Occupational Ther Daily Note ---
OT Current Status-Daily Note Subjective Sitting up in recliner alert and responsive to questions. Pain Numeric Pain Scale: 0-No Pain Mental Status/Objective Patient Orientation: Person, Place ([place]) Attachments: Slater Catheter ADL-Treatment Eating meal w/o assistance OT sets up oral and face/hair grooming supplies, patient performs on command in recliner. Transfer to stand and reposition w/ Mod assist of one person w/ 25% verbal cues. Therapy Code Descriptions/Definitions Functional [place] Measure: 0=Not Assessed/NA 4=Minimal Assistance 1=Total Assistance 5=Supervision or Setup 2=Maximal Assistance 6=Modified [place] 3=Moderate Assistance 7=Complete IndependenceSCALE: Activities may be completed with or without assistive devices. 5-Mhmvvmzsty-whoyyvv completes the activity by him/herself with no assistance from a helper. 5-Set-up or Clean-up Assistance-helper sets up or cleans up; patient completes activity. [place] assists only prior to or following the activity. 4-Supervision or Touching Assistance-helper provides verbal cues and/or touching/steadying and/or contact guard assistance as patient completes activ ity. Assistance may be provided throughout the activity or intermittently. 3-Partial/Moderate Assistance-helper does LESS THAN HALF the effort. [place] lifts, holds or supports trunk or limbs, but provides less than half the effort. 2-Substantial/Maximal Assistance-helper does MORE THAN HALF the effort. [place] lifts or holds trunk or limbs and provides more than half the effort. 9-Rimfmibdu-izcwgr does ALL the effort. Patient does none of the effort to complete the activity. Or, the assistance of 2 or more helpers is required for the patient to complete the activity. If activity was not attempted, code reason: 7-Patient Refused. 9-Not Applicable-not attempted and the patient did not perform the activity before the current illness, exacerbation or injury. 10-Not Attempted due to Environmental Limitations-(lack of equipment, weather restraints, etc.). 88-Not Attempted due to Medical Conditions or Safety Concerns. Eating (QC): 5 Oral Hygiene (QC): 4 Education OT Patient Education: Correct positioning, Exercise program, Modified ADL techniques, Progress toward Goal/Update tx plan, Purpose of tx/functional activities, Reviewed precautions, Rehab process, Safety issues, Transfer techniques Teaching Recipient: Patient Teaching Methods: Demonstration, Discussion Response to Teaching: Verbalize Understanding, Reinforcement Needed OT Assisted Goals Bank Vault Attendant Goals Time Frame: Nov 03, 2022 Eating (QC): 5 Oral Hygiene (QC): 5 Toileting Hygiene (QC): 5 Shower/Bathe Self (QC): 3 Upper Body Dressing (QC): 5 Lower Body Dressing (QC): 3 On/Off Footwear (QC): 1 Additional Goals: 1-Demonstrate ADL Tasks, 2-Verbalize Understanding, 3- ImproveStrength/[place] 1=Demonstrate adherence to instructed precautions during ADL tasks. 2=Patient will verbalize/demonstrate understanding of assistive d evices/modifications for ADL. 3=Patient will improve strength/tolerance for activity to enable patient to perform ADL's. OT Education/Plan Problem List/Assessment Assessment: Decreased Activ Tolerance, Decreased Safety Aware, Decreased UE Strength, Impaired Coordination, Impaired Funct Balance, Impaired Self-Care Skills Pt would benefit from skilled OT to increase her independence in basic self care and decrease caregiver burden. Discharge Recommendations Plan/Recommendations: Continue POC Therapy Discharge Recommendati: Post Acute OT Treatment Plan/Plan of Care Treatment,Training & Education: Yes Patient would benefit from OT for education, treatment and training to promote independence in ADL's, mobility, safety and/or upper extremity function for ADL's. Plan of Care: ADL Retraining, Functional Mobility, UE Funct Exercise/Act Treatment Duration: Nov 03, 2022 Frequency: 5 times per week (4-5 times a week) Estimated Hrs Per Day: .25 hour per day Agreement: No (unable to agree verbally) Rehab Potential: Fair Time Start Time: 10:13 Stop Time: 10:21 DATE: Oct 26, 2022 Total Time Billed (hr/min): 8 Billed Treatment Time ADL 8 min HANSEL FLANAGAN OT Oct 26, 2022 10:20
[2022-10-26 11:02] VITALS: BP 105/66
--- NOTE | 2022-10-26 11:43 | Discharge Summary ---
Discharge Summary Hospital Course Hospital Course Date of Admission: Oct 24, 2022 at 11:32 Admission Diagnosis : Family Physician/Provider: Date of Discharge: 10/26/22 Discharge Diagnosis: Altered Mental Status Metabolic Encephalopathy IDDM, Uncontrolled HLD HTN Hospital Course: 72 yo F that presented with altered mental status. Workup was negative for acute CVA. Aggressive treatment of blood sugars and patient started to improve and now is at baseline prior to d/c. Will need PT at discharge. Labs and Pending Lab Test: Laboratory Tests 10/25/22 15:22: Glucometer 370H 10/25/22 20:23: Glucometer 280H 10/26/22 05:15: Glucometer 168H 10/26/22 05:50: White Blood Count 8.8, Red Blood Count 4.04, Hemoglobin 11.5, Hematocrit 34L, Mean Corpuscular Volume 83, Mean Corpuscular Hemoglobin 29, Mean Corpuscular Hemoglobin Concent 34, Red Cell Distribution Width 14.4, Platelet Count 122L, Mean Platelet Volume 9.7, Immature Granulocyte % (Auto) 1, Neutrophils (%) (A uto) 64, Lymphocytes (%) (Auto) 25, Monocytes (%) (Auto) 7, Eosinophils (%) (Auto) 4, Basophils (%) (Auto) 0, Neutrophils # (Auto) 5.6, Lymphocytes # (Auto) 2.2, Monocytes # (Auto) 0.6, Eosinophils # (Auto) 0.3, Basophils # (Auto) 0.0, Immature Granulocyte # (Auto) 0.0, Percent Immature Platelet Fraction 2.6, Sodium Level 138, Potassium Level 3.3L, Chloride Level 110H, Carbon Dioxide Level 17L, Anion Gap 11, Blood Urea Nitrogen 36H, Creatinine 1.53H, Estimat Glomerular Filtration Rate 35, BUN/Creatinine Ratio 24, Glucose Level 173H, Calcium Level 8.5, Corrected Calcium 9.1, Total Bilirubin 0.5, Aspartate Amino Transf (AST/SGOT) 22, Alanine Aminotransferase (ALT/SGPT) 18, Alkaline Phosphatase 46, Total Protein 5.6L, Albumin 3.3 10/26/22 10:22: Glucometer 316H Microbiology 10/19/22 Blood Culture - Final, Complete Corynebacterium JK(Allen) Corynebacterium species No Susceptibility Performed Home Meds Active Reported Tylenol Extra Strength (Acetaminophen) 500 Mg Tablet 1,000 Mg PO Q6H PRN Tramadol HCl 50 Mg Tablet 50 Mg PO Q6H PRN Guaifenesin Dm Syrup (Guaifenesin/Dextromethorphan) 100 Mg-10 Mg/5 Ml Syrup 10 Ml PO Q4H PRN Ventolin Hfa (Albuterol Sulfate) 90 Mcg Hfa.aer.ad 2 Puff INH Q6H PRN Albuterol Sulfate 2.5 Mg/0.5 Ml Vial.neb 2.5 Mg INH Q4H PRN Novolog Flexpen (Insulin Aspart) 100 Unit/Ml (3 Ml) Solution Units SQ AC CORRECTION SCALE: 200-250=13 UNITS 251-300=25 UNITS 301-350=38 UNITS 351-400=51 UNITS 401-450=64 UNITS 451-500=77 UNITS 501-550=90 UNITS Novolog Flexpen (Insulin Aspart) 100 Unit/Ml (3 Ml) Solution 60 Units SQ AC Toujeo Max Solostar (Insulin Glargine,Hum.rec.anlog) 300 Unit/Ml (3 Ml) In suln.pen 100 Units SC 0800,2000 Refresh Optive Advanced Drops (Carboxymethyl/Glycerin/Poly80) 0.5 %-1 %-0.5 % Drops 1 Drop OD QID Diclofenac Sodium 1 % Gel..gram. 4 Gm TP TID APPLY TO LEFT KNEE Mucinex (Guaifenesin) 600 Mg Tab.er.12h 600 Mg PO BID Escitalopram Oxalate 20 Mg Tablet 20 Mg PO DAILY Glimepiride 4 Mg Tablet 4 Mg PO DAILY Losartan Potassium 100 Mg Tablet 100 Mg PO DAILY Lyrica (Pregabalin) 150 Mg Capsule 150 Mg PO 0800,1400,2000 Imodium A-D (Loperamide HCl) 2 Mg Capsule 2-4 Mg PO Q3H PRN MDD 16MH GIVE 2 TABS TO EQUAL 4 MG AFTER 1ST LOOSE STOOL, THEN 1 TAB AFTER EVERY LOOSE STOOL Protonix (Pantoprazole Sodium) 20 Mg Tablet.dr 20 Mg PO DAILY Rosuvastatin Calcium 20 Mg Tablet 20 Mg PO DAILY Bumetanide 2 Mg Tablet 2 Mg PO DAILY Acetaminophen Extra Strength (Acetaminophen) 500 Mg Tablet 1,000 Mg PO BID Vitamin D3 (Cholecalciferol (Vitamin D3)) 125 Mcg Capsule 125 Mcg PO DAILY Meclizine HCl 25 Mg Tablet 25 Mg PO BID Ferrous Sulfate 325 Mg Tablet 325 Mg PO DAILY Cyanocobalamin Injection (Cyanocobalamin) 1,000 Mcg/Ml Inj 1,000 Mcg IM MONTHLY Aspirin 81 Mg Tab.chew 81 Mg PO DAILY Skilled NF Admit to: Certification (SNF) I certify that SNF services are required to be given on an inpatient basis because of the above named patient's need for usp care on a continuing basis for the conditions(s) for which he/she was receiving inpatient hospital services prior to his/her transfer to the SNF. Residential Facility Order: Nursing Services, Benefits Consulting Analyst-Evaluate & Treat, Physical Therapy-Evaluate & Treat Oxygen Delivery Method: Room Air Discharge Diet: ADA Diet (Strict) Daily Activity as Tolerated: Yes Resuscitation Status: Full Code New & Resume Previous Orders - Patient needs strict ADA diet and we discussed ADA healthy snacks Nicolasa Hui Oct 26, 2022 11:27 Discharge Physical Exam General: Alert, Oriented X3, No Acute Distress Lungs: Clear to Auscultation, Normal Air Movement Heart: Regular Rate, No Murmurs Abdomen: Normal Bowel Sounds, Soft, No Tenderness, No Masses Extremities: No Edema, No Tenderness/Swelling Neuro: Normal Speech (slowed) NICOLASA HUI MD Oct 26, 2022 11:32
[2022-10-26] MEDS ORDERED: AMLO-250 PO (11:47)
[2022-10-26] MEDS ORDERED: INSU300I3 SC (11:47)
[2022-10-26] MEDS ORDERED: INSU100I14 SQ (11:47)
[2022-10-26] MEDS ORDERED: METO50TA15 PO (11:47)
== END 2022-10-26 14:55 | DRG 637 ==
LOC: EDUNIT# 17:12 → ER 17:14 → 4TH 10-20 08:50 → OBSVTOIN 10-24 11:32
PROVIDERS: ADMIT Internal Medicine; ATTEND Family Medicine
DX: E11.65 Type 2 diabetes mellitus with hyperglycemia (principal); G93.41 Metabolic encephalopathy; F03.90 Unspecified dementia, unspecified severity, without behavioral disturbance, psychotic disturbance, mood disturbance, and anxiety; N18.9 Chronic kidney disease, unspecified; I12.9 Hypertensive chronic kidney disease with stage 1 through stage 4 chronic kidney disease, or unspecified chronic kidney disease; E11.22 Type 2 diabetes mellitus with diabetic chronic kidney disease; Z79.4 Long term (current) use of insulin; E78.5 Hyperlipidemia, unspecified; Z20.822 Contact with and (suspected) exposure to COVID-19
CPT/HCPCS: 36415; 36600; 70450; 70551; 71045; 71275; 74175; 80048; 80053; 80061; 80306; 81000; 82805; 82947; 83036; 83605; 84484; 85025; 85379; 85610; 85730; 87040; 87077; 87636; 93005; 93041; 94640; 94760; G0378

== ENCOUNTER 2022-10-29 14:03 | Inpatient (IN) | payer MEDICARE, MEDICAID ==
[~2022-10-29] VITALS: Ht 165 cm; Wt 91.4 kg
[2022-10-29] VITALS (17 sets, daily range): BP systolic 52–192; BP diastolic 40–97
[~2022-10-29 14:03] MED LIST changes: +ACET-2267 PO; +ALB0.5V INH; +ALBU0.63 IH; +ALBU6.7H13 INH; +ALBU8.5H6 INH; +CARB10DR OD; +CARB10DR OP; +CYAN100088 SQ; +ESCI20TA PO; +ESCI20TA39 PO; +GLIM2TAB4 PO; +GUAI5SYR PO; +GUAI600T43 PO; +INSU100I14 SQ; +INSU300I3 SC; +METO50TA15 PO; +NOVOLOG ASPART; -ROSU20TA32 PO; +ROSU20TA73 PO; +TRAM50TA3 PO; +[UNRECOGNIZED DRUG - CODE] PO; +[UNRECOGNIZED DRUG - CODE] PO
[2022-10-29 14:26] LABS: ALBUMIN 3.9 GM/DL (3.2-4.5); POTASSIUM 4.6 MMOL/L (3.6-5.0)
[2022-10-29 14:28] LABS: CALCIUM 9.6 MG/DL (8.5-10.1)
[2022-10-29 14:29] LABS: TOTAL PROTEIN 6.7 GM/DL (6.4-8.2)
[2022-10-29 14:31] LABS: BILIRUBIN,TOTAL 0.3 MG/DL (0.1-1.0)
[2022-10-29 14:33] LABS: CREATININE SERUM 2.7 MG/DL (0.60-1.30)
[2022-10-29 14:40] LABS: BASOPHILS # (AUTO) 0.1 10^3/uL (0.0-0.1); BASOPHILS % (AUTO) 0 % (0-10); EOSINOPHILS # (AUTO) 0.3 10^3/uL (0.0-0.3); EOSINOPHILS % (AUTO) 2 % (0-10); HEMATOCRIT 39 % (35-52); HEMOGLOBIN 12.6 g/dL (11.5-16.0); LYMPHOCYTES # (AUTO) 2.2 X 10^3 (1.0-4.0); LYMPHOCYTES % (AUTO) 16 % (12-44); MEAN CORPUSCULAR HEMOGLOBIN 28 pg (25-34); MEAN CORPUSCULAR HGB CONC 33 g/dL (32-36); MEAN CORPUSCULAR VOLUME 85 fL (80-99); MEAN PLATELET VOLUME 10.4 fL (9.0-12.2); MONOCYTES # (AUTO) 1.1 X 10^3 (0.0-1.0); MONOCYTES % (AUTO) 8 % (0-12); NEUTROPHILS # (AUTO) 9.7 X 10^3 (1.8-7.8); NEUTROPHILS % (AUTO) 72 % (42-75); PLATELET COUNT 214 10^3/uL (130-400); WHITE BLOOD COUNT 13.4 10^3/uL (4.3-11.0)
--- NOTE | 2022-10-29 14:52 | ED General ---
General Chief Complaint: Altered Mental Status Stated Complaint: WEAKNESS Nursing Triage Note: pt presents to ed via ems from [facility] for increased generalized weakness and fatigue. pt was seen in outpt for ct but did not get scan done due to elevated bun. group home staff reports pt was harder to wake up than normal after coming back to group home after outpt visit. pt is alert to self upon arival and states, " they woke her up from sleeping and she wants to go back home because she's tired." Source of Information: Patient Exam Limitations: No Limitations History of Present Illness Date Seen by Provider: Oct 29, 2022 Time Seen by Provider: 14:17 Initial Comments This 72-year-old woman presents to the emergency room via EMS from [facility] with complaint of altered mental status. She had recently been admitted to this facility for altered mental status and metabolic encephalopathy. She was discharged back to the group home on October 26. Staff reports that she has had increased weakness. Outpatient labs revealed elevated BUN and creatinine. She reportedly had a CT study anticipated but could not follow through with that CT study due to her renal function. I am not aware of what study was ordered. Patient is alert and has no specific complaints on my assessment. She is confused, but she also has dementia at baseline. Nursing staff reported that she had copious volume this diarrhea after arrival to the ER. Allergies and Home Medications Allergies Coded Allergies: Tetanus Vaccines and Toxoid (Unverified Allergy, Severe, 12/17/11) SWOLLEN HOT RED ARM ampicillin (Unverified Allergy, Unknown, 12/20/15) dulaglutide (Unverified Allergy, Unknown, 06/16/21) Patient Home Medication List Home Medication List Reviewed: Yes Acetaminophen (Acetaminophen Extra Strength) 500 Mg Tablet, 1,000 MG PO BID, (Reported) Entered as Reported by: NABEEL CHEEK on 06/21/21 1601 Acetaminophen (Tylenol Extra Strength) 500 Mg Tablet, 1,000 MG PO Q6H PRN for PAIN-MILD (1-4) OR TEMPATURE, (Reported) Entered as Reported by: PA PAUL on 10/24/22 0911 Albuterol Sulfate (Albuterol Sulfate) 2.5 Mg/0.5 Ml Vial.neb, 2.5 MG INH Q4H PRN for SHORTNESS OF BREATH, (Reported) Entered as Reported by: PA PAUL on 10/24/22 09 Albuterol Sulfate (Ventolin Hfa) 90 Mcg Hfa.aer.ad, 2 PUFF INH Q6H PRN for SHORTNESS OF BREATH, (Reported) Entered as Reported by: PA PAUL on 10/24/22 09 Amlodipine Besylate (Amlodipine Besylate) 5 Mg Tablet, 5 MG PO DAILY Prescribed by: NICOLASA CINTRON on 10/26/22 1147 Aspirin (Aspirin) 81 Mg Tab.chew, 81 MG PO DAILY, (Reported) Entered as Reported by: PA PAUL on 11/27/19 08 Bumetanide (Bumetanide) 2 Mg Tablet, 2 MG PO DAILY, (Reported) Entered as Reported by: NABEEL CHEEK on 06/21/21 1601 Carboxymethyl/Glycerin/Poly80 (Refresh Optive Advanced Drops) 0.5 %-1 %-0.5 % Drops, 1 DROP OD QID, (Reported) Entered as Reported by: PA PAUL on 10/24/22 09 Cholecalciferol (Vitamin D3) (Vitamin D3) 125 Mcg Capsule, 125 MCG PO DAILY, (Reported) Entered as Reported by: PA PAUL on 11/27/19 0852 Cyanocobalamin (Cyanocobalamin Injection) 1,000 Mcg/Ml Inj, 1,000 MCG IM MONTHLY, (Reported) Entered as Reported by: PA PAUL on 11/27/19 08 Diclofenac Sodium (Diclofenac Sodium) 1 % Gel..gram., 4 GM TP TID, (Reported) Entered as Reported by: PA PAUL on 10/24/22 09 Escitalopram Oxalate (Escitalopram Oxalate) 20 Mg Tablet, 20 MG PO DAILY, (Reported) Entered as Reported by: PA PAUL on 10/24/22 09 Ferrous Sulfate (Ferrous Sulfate) 325 Mg Tablet, 325 MG PO DAILY, (Reported) Entered as Reported by: PA PAUL on 11/27/19 08 Glimepiride (Glimepiride) 4 Mg Tablet, 4 MG PO DAILY, (Reported) Entered as Reported by: PA PAUL on 10/24/22 09 Guaifenesin (Mucinex) 600 Mg Tab.er.12h, 600 MG PO BID, (Reported) Entered as Reported by: PA PAUL on 10/24/22 0911 Guaifenesin/Dextromethorphan (Guaifenesin Dm Syrup) 100 Mg-10 Mg/5 Ml Syrup, 10 ML PO Q4H PRN for COUGH, (Reported) Entered as Reported by: PA PAUL on 10/24/22 0911 Insulin Aspart (Novolog Flexpen) 100 Unit/Ml (3 Ml) Solution, UNITS SQ AC, (Reported) Entered as Reported by: PA PAUL on 10/24/22 09 Insulin Aspart (Novolog Flexpen) 100 Unit/Ml (3 Ml) Solution, 30 UNITS SQ AC Prescribed by: NICOLASA CINTRON on 10/26/22 114 Insulin Glargine,Hum.rec.anlog (Toujeo Max Solostar) 300 Unit/Ml (3 Ml) Insuln.pen, 50 UNITS SC 0800,1999 Prescribed by: NICOLASA CINTRON on 10/26/22 114 Loperamide HCl (Imodium A-D) 2 Mg Capsule, 2-4 MG PO Q3H PRN for DIARRHEA, (Reported) Entered as Reported by: NABEEL CHEEK on 06/21/21 160 Losartan Potassium (Losartan Potassium) 100 Mg Tablet, 100 MG PO DAILY, (Reported) Entered as Reported by: NABEEL CHEEK on 06/21/21 160 Meclizine HCl (Meclizine HCl) 25 Mg Tablet, 25 MG PO BID, (Reported) Entered as Reported by: PA PAUL on 11/27/19 0847 Metoprolol Tartrate (Metoprolol Tartrate) 50 Mg Tablet, 50 MG PO BID Prescribed by: NICOLASA CINTRON on 10/26/22 114 Pantoprazole Sodium (Protonix) 20 Mg Tablet.dr, 20 MG PO DAILY, (Reported) Entered as Reported by: NABEEL CHEEK on 06/21/21 160 Rosuvastatin Calcium (Rosuvastatin Calcium) 20 Mg Tablet, 20 MG PO DAILY, (Reported) Entered as Reported by: NABEEL CHEEK on 06/21/21 160 Tramadol HCl (Tramadol HCl) 50 Mg Tablet, 50 MG PO Q6H PRN for PAIN-MODERATE (5- 7), (Reported) Entered as Reported by: PA PAUL on 10/24/22 0911 Discontinued Medications Albuterol Sulfate (Proventil Hfa) 90 Mcg Hfa.aer.ad, 2 PUFF INH Q6H PRN for SHORTNESS OF BREATH Discontinued Reason: Duplicate Order Prescribed by: CHAI BAUMANN on 10/20/22 1314 Albuterol Sulfate (Albuterol Sulfate) 0.63 Mg/3 Ml Vial.neb, 0.63 MG IH Q4H PRN for SHORTNESS OF BREATH Discontinued Reason: Duplicate Order Prescribed by: CHAI BAUMANN on 10/20/22 1314 Bumetanide (Bumetanide) 2 Mg Tablet, 2 MG PO DAILY Discontinued Reason: Duplicate Order Prescribed by: CHAI BAUMANN on 10/20/22 1314 Carboxymethyl/Glycerin/Poly80 (Refresh Optive Advanced Drops) 0.5 %-1 %-0.5 % Drops, 1 DROP OP QID PRN for DRY EYES Discontinued Reason: Duplicate Order Prescribed by: CHAI BAUMANN on 10/20/22 1314 Diclofenac Sodium (Diclofenac Sodium) 1 % Gel..gram., 4 GM TP DAILY Discontinued Reason: No Longer Taking Prescribed by: CHAI BAUMANN on 10/20/22 1322 Divalproex Sodium (Depakote Sprinkle) 125 Mg Cap, 125 MG PO, (Reported) Discontinued Reason: No Longer Taking Entered as Reported by: NABEEL CHEEK on 06/21/21 1601 Escitalopram Oxalate (Lexapro) 20 Mg Tablet, 20 MG PO DAILY Discontinued Reason: Duplicate Order Prescribed by: CHAI BAUMANN on 10/20/22 1314 Glimepiride (Glimepiride) 2 Mg Tablet, 2 MG PO DAILY Discontinued Reason: No Longer Taking Prescribed by: CHAI BAUMANN on 10/20/22 1314 Guaifenesin/Dextromethorphan (Hm Adult Tussin Dm Syrup) 100 Mg-10 Mg/5 Ml Syrup, 10 ML PO Q4H Discontinued Reason: Duplicate Order Prescribed by: CHAI BAUMANN on 10/20/22 1314 Metformin HCl (Metformin HCl) 500 Mg Tablet, 500 MG PO, (Reported) Discontinued Reason: No Longer Taking Entered as Reported by: NABEEL CHEEK on 06/21/21 1601 Pregabalin (Lyrica) 150 Mg Capsule, 150 MG PO 0800,1400,1999, (Reported) Entered as Reported by: NABEEL CHEEK on 06/21/21 1601 [Novolog Aspart] Discontinued Reason: Duplicate Order Prescribed by: CHAI BAUMANN on 10/20/22 1314 Review of Systems Review of Systems Constitutional: no symptoms reported; No fever EENTM: no symptoms reported Respiratory: no symptoms reported Cardiovascular: no symptoms reported Gastrointestinal: diarrhea Genitourinary: other (Incontinence) : No Musculoskeletal: no symptoms reported Skin: no symptoms reported Psychiatric/Neurological: See HPI Hematologic/Lymphatic: No Symptoms Reported Immunological/Allergic: no symptoms reported Past Xsrsbau-Gmdwxc-Chufdi Hx Patient Social History Tobacco Use?: Yes Smoking Status: Current Someday Smoker Substance use?: No Alcohol Use?: No Pt feels they are or have been: No Immunizations Up To Date Tetanus Booster (TDap): Unknown PED Vaccines UTD: No Seasonal Allergies Seasonal Allergies: No Past Medical History Surgery/Hospitalization HX: pmh: anemia, cad, chronic kidney disease, depression, htn, ibs, gen muscle weakness, dm2, anxiety, chronic pain, dementia, edems, gerd, high cholesterol, peripheral vas disease Surgeries: Yes (PT CANNOT RECALL) Hysterectomy, Vascular Surgery Respiratory: Yes COPD Currently Using CPAP: No Currently Using BIPAP: No Cardiac: Yes Coronary Artery Disease, High Cholesterol, Hypertension, Peripheral Vascular Neurological: Yes Dementia, Neuropathy 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 Disorders: No 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 Genitourinary: Yes UTI-Chronic Gastrointestinal: Yes Gastroesophageal Reflux Musculoskeletal: Yes (NONDISPLACED TRANSVERSE FX OF RIGHT FIBULAR SHAFT 04/11/19) Degenerate Disk Disease, Osteoporosis Endocrine: Yes Diabetes, Insulin dep HEENT: No (dysarthria anarthria) Cataract Loss of Vision: Denies Cancer: No Psychosocial: Yes (DELUSIONAL DISORDER) Anxiety Integumentary: No Blood Disorders: No Family Medical History Arthritis G8 SISTER G8 SISTER Cataracts 19 MOTHER Diabetes mellitus G8 SISTER FH: COPD (chronic obstructive pulmonary disease) 19 MOTHER FH: CVA (cerebrovascular accident) 19 FATHER FH: heart attack 19 FATHER Glaucoma 19 MOTHER Hypercholesterolemia 19 FATHER Hypertension 19 FATHER No Pertinent Family Hx Physical Exam Vital Signs Vital Signs - First Documented 10/29/22 14:03 Temp 36.5 Pulse 55 Resp 16 B/P (MAP) 107/97 (100) Pulse Ox 90 O2 Delivery Nasal Cannula O2 Flow Rate 2.00 Capillary Refill : Less Than 3 Seconds Height, Weight, BMI Height: 5'5.00" Weight: 164lbs. 6.4oz. [id number]; 31.00 BMI Method:Stated General Appearance: No Apparent Distress, WD/WN HEENT: PERRL/EOMI, Normal ENT Inspection Neck: Normal Inspection Respiratory: Lungs Clear, Normal Breath Sounds, No Accessory Muscle Use Cardiovascular: Regular Rate, Rhythm, No Edema, No Murmur Gastrointestinal: Non Tender, Soft, Other (Bruising on the abdominal wall from therapies.) Extremity: Normal Inspection, No Pedal Edema Neurologic/Psychiatric: Alert, Normal Mood/Affect, Disoriented Skin: Normal Color, Warm/Dry Focused Exam Lactate Level 10/29/22 14:12: Lactic Acid Level 1.65 Lactic Acid Level Laboratory Tests Test 10/29/22 14:12 Lactic Acid Level 1.65 MMOL/L (0.50-2.00) Progress/Results/Core Measures Suspected Sepsis SIRS Temperature: Pulse: 55 Respiratory Rate: 16 Laboratory Tests 10/29/22 14:05: White Blood Count 13.4H Blood Pressure 107 /97 Mean: 100 10/29/22 14:12: Lactic Acid Level 1.65 Laboratory Tests 10/29/22 14:05: Creatinine 2.70#H, Platelet Count 214, Total Bilirubin 0.3 10/29/22 17:50: INR Comment 1.0 Results/Orders Lab Results Laboratory Tests Test 10/29/22 14:05 10/29/22 14:12 10/29/22 15:42 10/29/22 17:50 Range/Units White Blood Count 13.4 H 4.3-11.0 10^3/uL Red Blood Count 4.54 3.80-5.11 10^6/uL Hemoglobin 12.6 11.5-16.0 g/dL Hematocrit 39 35-52 % Mean Corpuscular Volume 85 80-99 fL Mean Corpuscular Hemoglobin 28 25-34 pg Mean Corpuscular Hemoglobin Concent 33 32-36 g/dL Red Cell Distribution Width 15.5 H 10.0-14.5 % Platelet Count 214 130-400 10^3/uL Mean Platelet Volume 10.4 9.0-12.2 fL Immature Granulocyte % (Auto) 2 % Neutrophils (%) (Auto) 72 42-75 % Lymphocytes (%) (Auto) 16 12-44 % Monocytes (%) (Auto) 8 0-12 % Eosinophils (%) (Auto) 2 0-10 % Basophils (%) (Auto) 0 0-10 % Neutrophils # (Auto) 9.7 H 1.8-7.8 X 10^3 Lymphocytes # (Auto) 2.2 1.0-4.0 X 10^3 Monocytes # (Auto) 1.1 H 0.0-1.0 X 10^3 Eosinophils # (Auto) 0.3 0.0-0.3 10^3/uL Basophils # (Auto) 0.1 0.0-0.1 10^3/uL Immature Granulocyte # (Auto) 0.2 H 0.0-0.1 10^3/uL Sodium Level 137 135-145 MMOL/L Potassium Level 4.6 3.6-5.0 MMOL/L Chloride Level 106 98-107 MMOL/L Carbon Dioxide Level 21 21-32 MMOL/L Anion Gap 10 5-14 MMOL/L Blood Urea Nitrogen 45 H 7-18 MG/DL Creatinine 2.70 #H 0.60-1.30 MG/DL Estimat Glomerular Filtration Rate 18 BUN/Creatinine Ratio 17 Glucose Level 118 H 70-105 MG/DL Calcium Level 9.6 8.5-10.1 MG/DL Corrected Calcium 9.7 8.5-10.1 MG/DL Total Bilirubin 0.3 0.1-1.0 MG/DL Aspartate Amino Transf (AST/SGOT) 17 5-34 U/L Alanine Aminotransferase (ALT/SGPT) 19 0-55 U/L Alkaline Phosphatase 55 40-136 U/L C-Reactive Protein High Sensitivity 0.92 H 0.00-0.50 MG/DL Total Protein 6.7 6.4-8.2 GM/DL Albumin 3.9 3.2-4.5 GM/DL Lactic Acid Level 1.65 0.50-2.00 MMOL/L Urine Color YELLOW Urine Clarity CLOUDY Urine pH 5.5 5-9 Urine Specific [place] 1.020 1.016-1.022 Urine Protein 1+ H NEGATIVE Urine Glucose (UA) NEGATIVE NEGATIVE Urine Ketones NEGATIVE NEGATIVE Urine Nitrite NEGATIVE NEGATIVE Urine Bilirubin NEGATIVE NEGATIVE Urine Urobilinogen 0.2 < = 1.0 MG/DL Urine Leukocyte Esterase 3+ H NEGATIVE Urine RBC (Auto) 1+ H NEGATIVE Urine RBC 0-2 /HPF Urine WBC 50-100 H /HPF Urine Squamous Epithelial Cells 0-2 /HPF Urine Crystals NONE /LPF Urine Bacteria LARGE H /HPF Urine Casts NONE /LPF Urine Mucus NEGATIVE /LPF Urine Culture Indicated YES Prothrombin Time 13.6 12.2-14.7 SEC INR Comment 1.0 0.8-1.4 Activated Partial Thromboplast Time 33 24-35 SEC My Orders Orders - SHARAD ARRIAGA MD Cbc With Automated Diff (10/29/22 14:17) Comprehensive Metabolic Panel (10/29/22 14:17) Hs C Reactive Protein (10/29/22 14:17) Ua Culture If Indicated (10/29/22 14:17) Ed Iv/Invasive Line Start (10/29/22 14:17) Ns Iv 1000 Ml (Sodium Chloride 0.9%) (10/29/22 15:00) Urine Culture (10/29/22 15:42) Blood Culture (10/29/22 16:48) Sputum Culture (10/29/22 16:48) Protime With Inr (10/29/22 16:48) Partial Thromboplastin Time (10/29/22 16:48) Chest 1 View, Ap/Pa Only (10/29/22 16:48) Vital Signs Adult Sepsis Patie Q15M (10/29/22 16:48) Remove Rings In Anticipation O (10/29/22 16:48) Lactic Acid Analyzer (10/29/22 16:48) Ceftriaxone Iv/Im (Rocephin Iv/Im) (10/29/22 17:50) Code/Resuscitation (10/29/22 18:00) Ns Iv 1000 Ml (Sodium Chloride 0.9%) (10/29/22 18:30) Ns Iv 1000 Ml (Sodium Chloride 0.9%) (10/29/22 18:20) Ed Admission (Communication) (10/29/22 18:21) Stool Culture (10/29/22 18:25) Fecal Wbc (10/29/22 18:25) Occult Blood Stool (10/29/22 18:25) C Difficile Ag + Toxin A/B. (10/29/22 18:25) Isolation Central Supply Req (10/29/22 18:25) Vital Signs/I&O 7/10/23 14:03 Temp 36.5 Pulse 55 Resp 16 B/P (MAP) 107/97 (100) Pulse Ox 90 O2 Delivery Nasal Cannula O2 Flow Rate 2.00 Capillary Refill : Less Than 3 Seconds Blood Pressure Mean: 100 Progress Note #1: Time: 18:01 Progress Note Patient was interviewed and examined. She exhibited confusion and generalized weakness. Labs were reviewed and interpreted by me in their entirety. CBC was notable for elevated WBC of 13.4. CMP was notable for creatinine of 2.7. This represents a notable acute kidney injury when compared with prior. Lactic acid was normal. Remainder of CMP was relatively unremarkable. Urinalysis demonstrated significant pyuria with 50-100 WBC and large bacteria. Patient is being treated with 2 L of IV normal saline to start correcting the acute kidney injury. Rocephin is being administered for the urinary tract infection. Case was discussed with Dr. Arango, hospitalist, who accepts admission. Patient has a DNR order on her group home chart which will be extended to her admission orders. Progress Note #2: Time: 18:28 Progress Note Patient has been near hypotensive with her last 3 blood pressures. She continues to have copious diarrhea. She is starting her second liter of IV fluid now. Because of the change in vital signs status, Dr. Arango would like her admitted to the ICU. Patient is not in any distress. Stool studies have been ordered and will be sent if she produces another stool. eICU will be given report. Progress Note #3: Time: 19:07 Progress Note Patient is receiving her second liter of IV fluid at this time. I did give report to the eICU. Patient is stable with systolic blood pressure around 100 at this time. Diagnostic Imaging Diagonstic Imaging: Xray Plain Films/CT/US/NM/MRI: chest Comments NAME: KIMBERLY HYMAN [facility] REC#: [id number] PT STATUS: REG ER : 1950 PHYSICIAN: SHARAD ARRIAGA MD ADMIT DATE: 10/29/22/ER Signed Date of Exam:10/29/22 CHEST 1 VIEW, AP/PA ONLY INDICATION: Lower respiratory infection. EXAMINATION: Portable chest at 04:54 p.m. FINDINGS: Heart and mediastinum are normal. Lungs are clear. There are no effusions or pneumothoraces. IMPRESSION: Negative chest. Dictated by: Dictated on workstation # [id number] Dict: 10/29/22 1712 Trans: 10/29/22 172 [id number] [id number] Interpreted by: MANNY SLAUGHTER MD Electronically signed by: MANNY SLAUGHTER MD 10/29/221725 Departure Impression Primary Impression: Acute kidney injury Additional Impressions: Urinary tract infection Qualified Codes: N39.0 - Urinary tract infection, site not specified Altered mental status Qualified Codes: R41.82 - Altered mental status, unspecified Generalized weakness Diarrhea Qualified Codes: R19.7 - Diarrhea, unspecified Disposition: 01 HOME, SELF-CARE Condition: Improved Admissions Decision to Admit Reason: Admit from ER (General) Decision to Admit/Date: Oct 29, 2022 Time/Decision to Admit Time: 14:17 Departure-Patient Inst. Referrals: NO,LOCAL PHYSICIAN (PCP/Family) Primary Care Physician Copy Copies To 1: [facility]/SHARAD FUENTES MD Oct 29, 2022 14:52
[2022-10-29] MEDS ORDERED: NS IV 1000 ML 1,000 ML IV SCH ×2 (15:00→18:30)
[2022-10-29 15:50] LABS: BILIRUBIN,URINE NEGATIVE (NEGATIVE); CLARITY,URINE CLOUDY; COLOR,URINE YELLOW; GLUCOSE, URINE (UA) NEGATIVE (NEGATIVE); KETONES,URINE NEGATIVE (NEGATIVE); LEUKOCYTE ESTERASE ,URINE 3+ (NEGATIVE); NITRITE,URINE NEGATIVE (NEGATIVE); PH,URINE 5.5 (5-9); PROTEIN,URINE 1+ (NEGATIVE)
[2022-10-29 15:57] LABS: BACTERIA,URINE LARGE /HPF; RBC,URINE 0-2 /HPF; SQUAMOUS EPITHELIAL CELL,UR 0-2 /HPF; WBC,URINE 50-100 /HPF
--- NOTE | 2022-10-29 17:15 | Diagnostic Imaging Report ---
INDICATION: Lower respiratory infection. EXAMINATION: Portable chest at 04:54 p.m. FINDINGS: Heart and mediastinum are normal. Lungs are clear. There are no effusions or pneumothoraces. IMPRESSION: Negative chest. Dictated by: Dictated on workstation # [id number]
[2022-10-29] MEDS ORDERED: cefTRIAXone IV/IM 1,000 MG in NS (IVPB) 50 ML IV STA (17:50)
[2022-10-29 18:13] LABS: PROTHROMBIN TIME PATIENT 13.6 SEC (12.2-14.7)
[2022-10-29] MEDS ORDERED: NS IV 1000 ML 1,000 ML ONE (18:20)
--- NOTE | 2022-10-29 18:38 | History & Physical ---
History of Present Illness HPI/Chief Complaint CC: Sepsis HPI: This is a 72yo[place] patient of [facility] who is known to me since last admit 1 week ago for AMS without source who presented to the ER from [place] for AMS with KISHOR and evidence of sepsis from UTI with mild hypotension requiring transfer to ICU. She has had copious amount of diarrhea so stool studies have been ordered along with Imodium. Source: patient Exam Limitations: no limitations Date Seen 10/29/22 Time Seen by a Provider: 18:15 Attending Physician [place] PCP Admitting Physician: Attending Physician: Referring Physician Date of Admission Home Medications & Allergies Home Medications Reviewed patient Home Medication Reconciliation performed by pharmacy medication reconciliations pest control chemical technician and/or nursing. Patients Allergies have been reviewed. Allergies Allergies Coded Allergies Tetanus Vaccines and Toxoid (Unverified Allergy, Severe, 12/17/11) SWOLLEN HOT RED ARM ampicillin (Unverified Allergy, Unknown, 12/20/15) dulaglutide (Unverified Allergy, Unknown, 06/16/21) Past Xqjkqog-Oanpzt-Jyzjia Hx Past Med/Social Hx: Reviewed Nursing Past Med/Soc Hx, Reviewed and Corrections made Patient Social History Marrital Status: single Employed/Student: retired Smoking Status: Current Someday Smoker Type Used: Cigarettes 2nd Hand Smoke Exposure: Yes Recent Hopitalizations: No Immunizations Up To Date Tetanus Booster (TDap): Unknown Pediatric: No Date of Pneumonia Vaccine: Dec 04, 2014 Date of Influenza Vaccine: Nov 05, 2018 Seasonal Allergies Seasonal Allergies: No Past Medical History Surgeries: Hysterectomy, Vascular Surgery Respiratory: COPD Currently Using CPAP: No Currently Using BIPAP: No Cardiac: Coronary Artery Disease, High Cholesterol, Hypertension, Peripheral Vascular Neurological: Dementia, Neuropathy 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: No Menopausal Genitourinary: UTI-Chronic Gastrointestinal: Gastroesophageal Reflux Musculoskeletal: Degenerate Disk Disease, Osteoporosis Endocrine: Diabetes, Insulin dep HEENT: Cataract Loss of Vision: Denies Psychosocial: Anxiety History of Blood Disorders: No Family History Arthritis G8 SISTER G8 SISTER Cataracts 19 MOTHER Diabetes mellitus G8 SISTER FH: COPD (chronic obstructive pulmonary disease) 19 MOTHER FH: CVA (cerebrovascular accident) 19 FATHER FH: heart attack 19 FATHER Glaucoma 19 MOTHER Hypercholesterolemia 19 FATHER Hypertension 19 FATHER No Pertinent Family Hx Review of Systems Constitutional: see HPI, dizziness, malaise, weakness Psychiatric/Neurological: Other (confusion) Physical Exam Physical Exam Vital Signs Vital Signs - First Documented 10/29/22 14:03 Temp 36.5 Pulse 55 Resp 16 B/P (MAP) 107/97 (100) Pulse Ox 90 O2 Delivery Nasal Cannula O2 Flow Rate 2.00 Capillary Refill : Less Than 3 Seconds Height, Weight, BMI Height: 5'5.00" Weight: 164lbs. 6.4oz. 74.790677wc; 31.00 BMI Method:Stated General Appearance: WD/WN, Anxious, Chronically ill HEENT: PERRL/EOMI, Normal ENT Inspection Neck: Normal Inspection Respiratory: Lungs Clear, Normal Breath Sounds, No Accessory Muscle Use Cardiovascular: Regular Rate, Rhythm, No Edema, No Murmur Gastrointestinal: Non Tender, Soft, Other (Bruising on the abdominal wall from therapies.) Extremity: Normal Inspection, No Pedal Edema Neurologic/Psychiatric: Alert, Normal Mood/Affect, Disoriented Skin: Normal Color, Warm/Dry Results Results/Procedures Labs Laboratory Tests 10/29/22 14:05 Patient resulted labs reviewed. Assessment/Plan Admission Diagnosis Assessment: Sepsis Confusion KISHOR UTI COPD Smoker Dementia HTN HLP Plan: IVF ICU Monitor UOP with catheter Home meds Admission Status: Inpatient Order (span 2 midnights) Reason for Inpatient Admission: severe sepsis GUADALUPE AUSTIN DO Oct 29, 2022 18:38
[2022-10-29] MEDS ORDERED: LOPERAMIDE 2 MG (IMODIUM) TABLET PO PRN (20:00)
[2022-10-29] MEDS ORDERED: ONDANSETRON 4 MG (ZOFRAN) ORAL DISSOLVE TAB PO PRN (20:00)
[2022-10-29] MEDS ORDERED: diphenhydrAMINE 50 MG/ML INJ (BENADRYL) IVP PRN (20:00)
[2022-10-29] MEDS ORDERED: ACETAMINOPHEN 325 MG TABLET PO PRN (20:00)
[2022-10-29] MEDS ORDERED: MELATONIN 3 MG TABLET PO PRN (20:00)
[2022-10-29] MEDS ORDERED: polyethylene glycoL POWDER 17 GM (MIRALAX) PACK PO PRN (20:00)
[2022-10-29] MEDS ORDERED: ONDANSETRON 4 MG/2 ML (SDV) Z0FRAN IV PRN (20:00)
[2022-10-29] MEDS ORDERED: CEFEPIME INJECTION 1,000 MG in NS (IVPB) 50 ML IV SCH (20:00)
[2022-10-29] MEDS ORDERED: LACTULOSE SYRUP 10GM/15ML (ENULOSE) 30ML UDC PO PRN (20:00)
[2022-10-29] MEDS ORDERED: NS IV 500 ML 500 ML IV PRN (20:00)
[2022-10-29] MEDS ORDERED: MILK OF MAGNESIA 400 MG/5 ML 30 ML UDC PO PRN (20:00)
[2022-10-29] MEDS ORDERED: HYDROmorphone 2 MG/ML VIAL (DILAUDID) IV PRN (20:00)
[2022-10-29] MEDS ORDERED: BISACODYL 10 MG SUPP (DULCOLAX) PR PRN (20:00)
[2022-10-29] MEDS ORDERED: CALCIUM CARBONATE 500 MG (TUMS) TAB.CHEW PO PRN (20:00)
[2022-10-29] MEDS ORDERED: diphenhydrAMINE 25 MG TAB (BENADRYL) PO PRN (20:00)
[2022-10-29] MEDS ORDERED: ANTACID SUSP 30 ML UDC (MYLANTA) PO PRN (20:00)
[2022-10-29] MEDS ORDERED: LOPERAMIDE 2 MG (IMODIUM) TABLET PO ONE (20:00)
[2022-10-29] MEDS ORDERED: LORazepam INJ 2 MG/ML (ATIVAN) VIAL IVP PRN (20:00)
[2022-10-29] MEDS ORDERED: LORazepam 0.5 MG (ATIVAN) TABLET PO PRN (20:00)
[2022-10-29] MEDS: NS IV 1000 ML 1,000 ML IV SCH (20:10)
[2022-10-29] MEDS ORDERED: RT-ALBUTEROL/IPRATROPIUM 3 ML (DUONEB) VIAL INH PRN (20:30)
[2022-10-29] MEDS ORDERED: NOREPINEPHRINE 8 MG/250 ML 250 ML IV ONE (20:53)
[2022-10-29] MEDS: NOREPINEPHRINE 8 MG/250 ML 250 ML IV SCH (20:56)
[2022-10-29] MEDS: DOCUSATE SODIUM 100 MG (COLACE) CAP PO SCH (21:40)
[2022-10-29] MEDS: SENNOSIDES 8.6 MG (SENOKOT) TAB PO SCH (21:41)
[2022-10-29] MEDS ORDERED: LOPERAMIDE 2 MG (IMODIUM) TABLET ONE (21:44)
[2022-10-29] MEDS ORDERED: NS (IVPB) 50 ML ONE (21:44)
[2022-10-29] MEDS ORDERED: CEFEPIME 1 GM/10 ML (MAXIPIME) VIAL ONE (21:45)
--- NOTE | 2022-10-29 23:29 | CONSULTATION REPORT ---
DATE OF SERVICE: 10/29/2022 ATTENDING STAVE HEWER: [facility]. HISTORY OF PRESENT ILLNESS: The patient is a 72-year-old female, who was brought to the Emergency Department from [facility] due to altered mental status. She had been recently admitted again for the same altered mental status and was found to have a metabolic encephalopathy. The staff at the half-way facility had also noticed increased weakness and outpatient labs had also revealed elevation of BUN and creatinine. The patient was also found to be hypotensive and does have a number of medical problems and will require IV fluids, antibiotics as well as possible vasopressors. PAST MEDICAL HISTORY: Hypertension, hypercholesterolemia, anemia, chronic kidney disease, depression, generalized muscle weakness, diabetes, anxiety, dementia, gastroesophageal reflux disease, hypercholesterolemia, peripheral vascular disease. PAST SURGICAL HISTORY: Total hysterectomy, some form of Vascular surgery. ALLERGIES: TETANUS VACCINE, TOXOID, AMPICILLIN, DULAGLUTIDE. MEDICATIONS: Albuterol nebulizer 2.5 mg every 4 hours p.r.n., Ventolin inhaler 90 mcg 2 puffs every 6 hours p.r.n., amlodipine 5 mg daily, aspirin 81 mg daily, bumetanide 2 mg daily, diclofenac 1% gel 4 grams t.i.d., citalopram 20 mg daily, iron 325 mg daily, glimepiride 4 mg daily, Aspartate insulin 30 units q.a.c., glargine insulin 50 units b.i.d., loperamide p.r.n., losartan 100 mg daily, meclizine 25 mg b.i.d., metoprolol 50 mg b.i.d., Protonix 20 mg daily, rosuvastatin 20 mg daily, tramadol 50 mg p.r.n., Divalproex 125 mg daily, pregabalin 150 mg t.i.d., metformin 500 mg daily. SOCIAL HISTORY: Positive smoke, negative alcohol. FAMILY HISTORY: Noncontributory. VITAL SIGNS: Temperature 36.5, blood pressure 52/40, pulse 64, respirations 18, pulse ox 90% on 2 liters nasal cannula. REVIEW OF SYSTEMS: A well-nourished female who is awake and alert and does respond to some questions; however, is somewhat confused. She is not experiencing any shortness of breath or difficulty breathing. No chest pain, palpitations, diaphoresis. No nausea, vomiting. No diarrhea or constipation. No fever, chills, no recent inadvertent weight loss. All other review of systems negative. PHYSICAL EXAMINATION: CHEST: Scattered wheezes and rhonchi bilaterally. HEART: Regular. No murmurs. EXTREMITIES: No lower extremity edema. Negative Homans sign. HEENT: No scleral icterus. No cervical lymphadenopathy. ABDOMEN: Soft, nontender, nondistended. SKIN: Warm, dry. LABORATORY DATA: WBC 13.4, hemoglobin 12.6, hematocrit 39, platelets of 214, BUN 45, creatinine 2.70. Urinalysis, 3+ leukocyte esterase, large amount of bacteria. ASSESSMENT AND PLAN: A 72-year-old female with chronic kidney disease, urinary tract infection, possible pneumonia, sepsis and hypotension. She will need continued IV fluids and IV medications and possible vasopressors and will require a central venous catheter. We will proceed with placement of the catheter. Job ID: [id number] DocumentID: [id number] Dictated Date: 10/29/2022 23:01:23 Market President Date: 10/29/2022 23:27:00 Dictated By: JEFFREY AGEE MD
[2022-10-30] VITALS (29 sets, daily range): BP systolic 87–142; BP diastolic 43–122
--- NOTE | 2022-10-30 01:49 | OPERATIVE REPORT ---
DATE OF SERVICE: 10/29/2022 ATTENDING CLINICIAN: [facility]. PREOPERATIVE DIAGNOSES: Chronic kidney disease, urinary tract infection, pneumonia, hypotension and sepsis. POSTOPERATIVE DIAGNOSES: Chronic kidney disease, urinary tract infection, pneumonia, hypotension and sepsis. PROCEDURE: Placement of left subclavian central venous catheter. SURGEON: Jeffrey Agee MD ANESTHESIA: Local. ESTIMATED BLOOD LOSS: Minimal. FINDINGS: Catheter tip at superior vena caval -- right atrial junction. DISPOSITION: The patient tolerated the procedure well. INDICATIONS: The patient is a 72-year-old female who is a resident of an extended care facility with an extensive past medical history. The staff had noted lethargy, weakness as well as altered mental status. The patient was also found to be hypotensive. Workup did reveal urinary tract infection as well as possible pneumonia and was also found to be hypotensive. She will require continued IV fluids and IV antibiotics and likely vasopressors for her sepsis and will require a central venous catheter. DESCRIPTION OF PROCEDURE: The chest and neck were prepped and draped in standard surgical fashion. 1% lidocaine was then used to anesthetize the left subclavian region. The left subclavian vein was then cannulated with drawing of venous blood and the guidewire was then inserted without any resistance. The cannulating needle removed and a skin incision made using 11 blade. A tract was then created using a venous dilator and through this opening, a central venous catheter was placed over the guidewire using the Seldinger technique. Guidewire was then removed and all 3 ports lore venous blood and saline pushed in without any resistance. Catheter was then sutured to the skin using interrupted 3-0 silk sutures. Catheter was then cleaned and covered with Op-Site. The patient tolerated the procedure well. Post-procedure chest x-ray did show good placement and the catheter may be accessed and used at any time. Job ID: [id number] DocumentID: [id number] Dictated Date: 10/29/2022 23:04:26 Obstetrics Gyn Date: 10/30/2022 01:47:00 Dictated By: JEFFREY AGEE MD
[2022-10-30 03:49] LABS: BASOPHILS # (AUTO) 0.1 10^3/uL (0.0-0.1); BASOPHILS % (AUTO) 0 % (0-10); EOSINOPHILS # (AUTO) 0.3 10^3/uL (0.0-0.3); EOSINOPHILS % (AUTO) 2 % (0-10); HEMATOCRIT 35 % (35-52); HEMOGLOBIN 11.7 g/dL (11.5-16.0); LYMPHOCYTES # (AUTO) 4.1 10^3/uL (1.0-4.0); LYMPHOCYTES % (AUTO) 22 % (12-44); MEAN CORPUSCULAR HEMOGLOBIN 28 pg (25-34); MEAN CORPUSCULAR HGB CONC 34 g/dL (32-36); MEAN CORPUSCULAR VOLUME 84 fL (80-99); MONOCYTES # (AUTO) 1.4 10^3/uL (0.0-1.0); MONOCYTES % (AUTO) 8 % (0-12); NEUTROPHILS # (AUTO) 12.3 10^3/uL (1.8-7.8); NEUTROPHILS % (AUTO) 67 % (42-75); PLATELET COUNT 271 10^3/uL (130-400); WHITE BLOOD COUNT 18.4 10^3/uL (4.3-11.0)
[2022-10-30 04:10] LABS: ALBUMIN 3.4 GM/DL (3.2-4.5); BILIRUBIN,TOTAL 0.3 MG/DL (0.1-1.0); CALCIUM 8.3 MG/DL (8.5-10.1); CREATININE SERUM 2.19 MG/DL (0.60-1.30); MAGNESIUM 1.8 MG/DL (1.6-2.4); PHOSPHORUS 4.4 MG/DL (2.3-4.7); POTASSIUM 4.3 MMOL/L (3.6-5.0); TOTAL PROTEIN 5.7 GM/DL (6.4-8.2)
[2022-10-30] MEDS: NS IV 1000 ML 1,000 ML IV SCH ×3 (04:17→19:56)
[2022-10-30 04:40] LABS: EOSINOPHILS % (MANUAL) 1 %; LYMPHOCYTES % (MANUAL) 24 %; MONOCYTES % (MANUAL) 5 %; NEUTROPHILS % (MANUAL) 70 %; RBC MORPH NORMAL
[2022-10-30] MEDS: POTASSIUM CL 10MEQ/50ML IVPB 50 ML IV SCH (04:59)
[2022-10-30] MEDS: MAGNESIUM 1 GM/100 ML IVPB 100 ML IV SCH ×3 (05:00→06:53)
[2022-10-30] MEDS: KCL 20 MEQ TAB (K-DUR) PO SCH (05:00)
--- NOTE | 2022-10-30 05:43 | Progress Note ---
Subjective Date Seen by a Provider: Oct 30, 2022 Time Seen by a Provider: 11:00 Subjective/Events-last exam Patient is doing better No pain reported Levophed maintained Creat 2.1 Reviewed home meds Review of Systems General: Fatigue, Malaise Gastrointestinal: Diarrhea Focused Exam Lactate Level 10/29/22 14:12: Lactic Acid Level 1.65 Objective Exam Last Set of Vital Signs Vital Signs Date Time Temp Pulse Resp B/P (MAP) Pulse Ox O2 Delivery O2 Flow Rate FiO2 10/30/22 05:15 73 17 103/58 (71) 95 10/30/22 05:15 Nasal Cannula 2.00 10/30/22 01:12 36.6 Capillary Refill : Less Than 3 Seconds I&O Intake and Output 10/30/22 00:00 Intake Total 2150 ml Output Total 725 ml Balance 1425 ml Intake Oral 50 ml IV Total 2100 ml Output Urine Total 725 ml Daily Weight Change No General: Alert, Oriented X3, Cooperative, No Acute Distress Lungs: Clear to Auscultation, Normal Air Movement Heart: Regular Rate, Normal S1, Normal S2, No Murmurs Psych/Mental Status: Mental Status NL, Mood NL Results Lab Laboratory Tests 10/29/22 14:05: White Blood Count 13.4H, Red Blood Count 4.54, Hemoglobin 12.6, Hematocrit 39, Mean Corpuscular Volume 85, Mean Corpuscular Hemoglobin 28, Mean Corpuscular Hemoglobin Concent 33, Red Cell Distribution Width 15.5H, Platelet Count 214, Mean Platelet Volume 10.4, Immature Granulocyte % (Auto) 2, Neutrophils (%) (Auto) 72, Lymphocytes (%) (Auto) 16, Monocytes (%) (Auto) 8, Eosinophils (%) (Auto) 2, Basophils (%) (Auto) 0, Neutrophils # (Auto) 9.7H, Lymphocytes # (Auto) 2.2, Monocytes # (Auto) 1.1H, Eosinophils # (Auto) 0.3, Basophils # (Auto) 0.1, Immature Granulocyte # (Auto) 0.2H, Sodium Level 137, Potassium Level 4.6, Chloride Level 106, Carbon Dioxide Level 21, Anion Gap 10, Blood Urea Nitrogen 45H, Creatinine 2.70#H, Estimat Glomerular Filtration Rate 18, BUN/Creatinine Ratio 17, Glucose Level 118H, Calcium Level 9.6, Corrected Calcium 9.7, Total Bilirubin 0.3, Aspartate Amino Transf (AST/SGOT) 17, Alanine Aminotransferase (ALT/SGPT) 19, Alkaline Phosphatase 55, C-Reactive Protein High Sensitivity 0.92H, Total Protein 6.7, Albumin 3.9 10/29/22 14:12: Lactic Acid Level 1.65 10/29/22 15:42: Urine Color YELLOW, Urine Clarity CLOUDY, Urine pH 5.5, Urine Specific [place] 1.020, Urine Protein 1+H, Urine Glucose (UA) NEGATIVE, Urine Ketones NEGATIVE, Urine Nitrite NEGATIVE, Urine Bilirubin NEGATIVE, Urine Urobilinogen 0.2, Urine Leukocyte Esterase 3+H, Urine RBC (Auto) 1+H, Urine RBC 0-2, Urine WBC 50-100H, Urine Squamous Epithelial Cells 0-2, Urine Crystals NONE, Urine Bacteria LARGEH, Urine Casts NONE, Urine Mucus NEGATIVE, Urine Culture Indicated YES 10/29/22 17:50: Prothrombin Time 13.6, INR Comment 1.0, Activated Partial Thromboplast Time 33 10/30/22 03:16: White Blood Count 18.4H, Red Blood Count 4.13, Hemoglobin 11.7, Hematocrit 35, Mean Corpuscular Volume 84, Mean Corpuscular Hemoglobin 28, Mean Corpuscular Hemoglobin Concent 34, Red Cell Distribution Width 15.5H, Platelet Count 271, Mean Platelet Volume 10.0, Immature Granulocyte % (Auto) 2, Neutrophils (%) (Auto) 67, Lymphocytes (%) (Auto) 22, Monocytes (%) (Auto) 8, Eosinophils (%) (Auto) 2, Basophils (%) (Auto) 0, Neutrophils # (Auto) 12.3H, Lymphocytes # (Auto) 4.1H, Monocytes # (Auto) 1.4H, Eosinophils # (Auto) 0.3, Basophils # (Auto) 0.1, Immature Granulocyte # (Auto) 0.3H, Neutrophils % (Manual) 70, Lymphocytes % (Manual) 24, Monocytes % (Manual) 5, Eosinophils % (Manual) 1, Blood Morphology Comment NORMAL, Sodium Level 138, Potassium Level 4.3, Chloride Level 112H, Carbon Dioxide Level 17L, Anion Gap 9, Blood Urea Nitrogen 39H, Creatinine 2.19H, Estimat Glomerular Filtration Rate 23, BUN/Creatinine Ratio 18, Glucose Level 263H, Calcium Level 8.3L, Corrected Calcium 8.8, Phosphorus Level 4.4, Magnesium Level 1.8, Total Bilirubin 0.3, Aspartate Amino Transf (AST/SGOT) 19, Alanine Aminotransferase (ALT/SGPT) 21, Alkaline Phosphatase 56, Total Protein 5.7L, Albumin 3.4 Assessment/Plan Assessment/Plan Assess & Plan/Chief Complaint Assessment: Sepsis Hypotension requiring pressors 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
--- NOTE | 2022-10-30 06:17 | Diagnostic Imaging Report ---
EXAMINATION: Chest 1 view HISTORY: Line placement COMPARISON: 10/29/2022 FINDINGS: Heart size and pulmonary vasculature are normal. There are mild interstitial opacities at the lung bases, unchanged. Trace left pleural effusion, unchanged. No pneumothorax. Interval placement of a left-sided central line with the tip projecting over the atriocaval junction. The osseous structures are intact. IMPRESSION: 1. Left-sided central line placement with the tip projecting over the atriocaval junction. No pneumothorax. Dictated by: Dictated on workstation # [id number]
[2022-10-30] MEDS: inSUlin ASPART (NovoLOG) 1 UNIT/0.01 ML (CHARGE PER UNIT) SC SCH ×4 (06:43→21:18)
--- NOTE | 2022-10-30 08:34 | Tele-ICU Consult ---
History of Present Illness History of Present Illness Date Seen by Provider: Oct 30, 2022 Time Seen by Provider: 08:24 History of Present Illness (Tele-ICU Physician , Progress Note ) Service provided via interactive audio and video telecommunRewarder E-CARE system to a patient admitted to ICU bed in [facility]. Patient is seen today due to persistent need of ICU care Available chart/ vitals / labs / Images reviewed Video assessment done using teleICU camera, rest of exam as per RN Discussed with RN Events overnight : Afebrile hemodynamically stable Respiratory - 3L I/O = Drips: Pressors- levophed @ 0.075, has left subclavian central, placed 12 hours ago eICU Critical Care Consult 72 yo F admitted for increasing lethargy, also having diarrhea and BP was low in ED, as low as 87/54, BP now 100/50 this along with copious diarrhea led to ICU admission, not having diarrhea now. Getting IVF, Imodium, IV Cefepime, also on sliding scale insulin Cr was 2.70, now 2.19, HCO3 17 with no AG, probably from diarrhea Also 50-100 WBC in urine, gnr in urine culture, On IV Cefepime, WBC today 18k PMH CKD, HTN, Depression, HTN, IBS, DM2, dementia, GERD, HLD Allergies and Home Medications Allergies Coded Allergies: Tetanus Vaccines and Toxoid (Unverified Allergy, Severe, 12/17/11) SWOLLEN HOT RED ARM ampicillin (Unverified Allergy, Unknown, 12/20/15) dulaglutide (Unverified Allergy, Unknown, 06/16/21) Home Medications Acetaminophen 500 Mg Tablet, 1,000 MG PO BID, (Reported) Acetaminophen 500 Mg Tablet, 1,000 MG PO Q6H PRN for PAIN-MILD (1-4) OR TEMPATURE, (Reported) Albuterol Sulfate 2.5 Mg/0.5 Ml Vial.neb, 2.5 MG INH Q4H PRN for SHORTNESS OF BREATH, (Reported) Albuterol Sulfate 90 Mcg Hfa.aer.ad, 2 PUFF INH Q6H PRN for SHORTNESS OF BREATH, (Reported) Amlodipine Besylate 5 Mg Tablet, 5 MG PO DAILY Prescribed by: NICOLASA CINTRON on 10/26/22 1147 Aspirin 81 Mg Tab.chew, 81 MG PO DAILY, (Reported) Bumetanide 2 Mg Tablet, 2 MG PO DAILY, (Reported) Carboxymethyl/Glycerin/Poly80 0.5 %-1 %-0.5 % Drops, 1 DROP OD QID, (Reported) Cholecalciferol (Vitamin D3) 125 Mcg Capsule, 125 MCG PO DAILY, (Reported) Cyanocobalamin 1,000 Mcg/Ml Inj, 1,000 MCG IM MONTHLY, (Reported) Diclofenac Sodium 1 % Gel..gram., 4 GM TP TID, (Reported) APPLY TO LEFT KNEE Escitalopram Oxalate 20 Mg Tablet, 20 MG PO DAILY, (Reported) Ferrous Sulfate 325 Mg Tablet, 325 MG PO DAILY, (Reported) Glimepiride 4 Mg Tablet, 4 MG PO DAILY, (Reported) Guaifenesin 600 Mg Tab.er.12h, 600 MG PO BID, (Reported) Guaifenesin/Dextromethorphan 100 Mg-10 Mg/5 Ml Syrup, 10 ML PO Q4H PRN for COUGH, (Reported) Insulin Aspart 100 Unit/Ml (3 Ml) Solution, UNITS SQ AC, (Reported) CORRECTION SCALE: 200-250=13 UNITS 251-300=25 UNITS 301-350=38 UNITS 351- 400=51 UNITS 401-450=64 UNITS 451-500=77 UNITS 501-550=90 UNITS Insulin Aspart 100 Unit/Ml (3 Ml) Solution, 30 UNITS SQ AC Prescribed by: NICOLASA CINTRON on 10/26/221146 Insulin Glargine,Hum.rec.anlog 300 Unit/Ml (3 Ml) Insuln.pen, 50 UNITS SC Prescribed by: NICOLASA CINTRON on 10/26/221146 Loperamide HCl 2 Mg Capsule, 2-4 MG PO Q3H PRN for DIARRHEA, (Reported) GIVE 2 TABS TO EQUAL 4 MG AFTER 1ST LOOSE STOOL, THEN 1 TAB AFTER EVERY LOOSE STOOL Losartan Potassium 100 Mg Tablet, 100 MG PO DAILY, (Reported) Meclizine HCl 25 Mg Tablet, 25 MG PO BID, (Reported) Metoprolol Tartrate 50 Mg Tablet, 50 MG PO BID Prescribed by: NICOLASA CINTRON on 10/26/221146 Pantoprazole Sodium 20 Mg Tablet.dr, 20 MG PO DAILY, (Reported) Pregabalin 150 Mg Capsule, 150 MG PO 0800,1400,1999, (Reported) Rosuvastatin Calcium 20 Mg Tablet, 20 MG PO DAILY, (Reported) Tramadol HCl 50 Mg Tablet, 50 MG PO Q6H PRN for PAIN-MODERATE (5-7), (Reported) Past Medical/Social/Family Hx Patient Social History Marrital Status: single Employed/Student: retired Tobacco Use?: Yes Tobacco type used: Cigarettes Smoking Status: Current Everyday Smoker Smokeless Tobacco Frequency: Never a User Use of E-Cig and/or Vaping dev: Unable to obtain Substance use?: Unable to obtain Alcohol Use?: Unable to obtain Pt stated abuse/neglect: Unable to obtain Immunizations Up To Date Tetanus Booster (TDap): Unknown Hepatitis A: No Hepatitis B: No Date of Pneumonia Vaccine: Dec 04, 2014 Current Status Advance Directives: Yes Advance Directive Location: Scanned into EMR Communicates: Verbally Primary Language: Czech Preferred Spoken Language: Czech Is interpretation needed?: No Sensory deficits: Hearing impairment Review of Systems Constitutional: see HPI EENTM: see HPI Respiratory: see HPI Cardiovascular: see HPI Gastrointestinal: see HPI Genitourinary: see HPI Musculoskeletal: see HPI Skin: see HPI Psychiatric/Neurological: See HPI Focused Exam Lactate Level 10/29/22 14:12: Lactic Acid Level 1.65 Height, Weight, BMI Height: 5'5.00" Weight: 164lbs. 6.4oz. [id number]; 31.80 BMI Method:Stated Exam Exam Patient acknowledged, consented, and participated in this virtual visit which was conducted using real time audio/video Vital Signs Date Time Temp Pulse Resp B/P (MAP) Pulse Ox O2 Delivery O2 Flow Rate FiO2 10/30/22 08:00 36.4 10/30/22 07:00 75 10/30/22 06:45 96 16 110/59 (76) 95 Nasal Cannula 2.00 10/30/22 06:30 75 25 111/51 (77) 95 Nasal Cannula 2.00 10/30/22 06:15 88 19 115/52 (68) 95 Nasal Cannula 2.00 10/30/22 06:15 73 18 115/52 (68) 94 Nasal Cannula 2.00 10/30/22 06:00 74 14 114/68 (79) 96 Nasal Cannula 2.00 10/30/22 06:00 74 14 114/68 (79) 94 Nasal Cannula 2.00 10/30/22 05:45 75 14 106/74 (86) 96 Nasal Cannula 2.00 10/30/22 05:45 75 13 106/74 (86) 95 Nasal Cannula 2.00 10/30/22 05:30 73 25 102/62 (77) 95 Nasal Cannula 2.00 10/30/22 05:30 73 17 102/62 (77) 95 Nasal Cannula 2.00 10/30/22 05:15 73 17 103/58 (71) 95 10/30/22 05:15 73 17 103/58 (71) 95 Nasal Cannula 2.00 10/30/22 05:00 100/59 (77) 10/30/22 05:00 100/59 (77) 10/30/22 04:45 93/63 (72) 10/30/22 04:45 93/63 (72) 10/30/22 04:30 72 16 97/56 (73) 97 10/30/22 04:30 72 16 97/56 (73) 97 Nasal Cannula 2.00 10/30/22 04:15 75 18 142/122 (123) 96 Nasal Cannula 2.00 10/30/22 04:15 75 18 142/122 (123) 96 Nasal Cannula 2.00 10/30/22 04:02 96 Nasal Cannula 2.00 10/30/22 04:00 71 13 126/93 (113) 97 Nasal Cannula 2.00 10/30/22 04:00 71 13 126/93 (113) 97 Nasal Cannula 2.00 10/30/22 03:30 72 22 104/82 (97) 97 Nasal Cannula 2.00 10/30/22 03:15 69 17 108/55 (72) 96 Nasal Cannula 2.00 10/30/22 03:15 108/55 (72) Nasal Cannula 2.00 10/30/22 03:00 70 13 87/54 (55) 96 Nasal Cannula 2.00 10/30/22 03:00 70 17 87/54 (55) 96 Nasal Cannula 2.00 10/30/22 02:45 71 18 97/43 (76) 96 Nasal Cannula 2.00 10/30/22 02:45 97/43 (76) 10/30/22 02:30 71 22 115/83 (100) 96 Nasal Cannula 2.00 10/30/22 02:30 71 22 115/83 (100) 96 Nasal Cannula 2.00 10/30/22 02:15 103/57 (74) 10/30/22 02:15 103/57 (74) 10/30/22 02:00 71 22 102/46 (69) 96 Nasal Cannula 2.00 10/30/22 02:00 71 22 102/46 (69) 96 Nasal Cannula 2.00 10/30/22 01:45 72 23 100/58 (64) 95 Nasal Cannula 2.00 10/30/22 01:45 73 7 100/58 (64) 96 Nasal Cannula 2.00 10/30/22 01:30 70 23 103/56 (81) 96 Nasal Cannula 2.00 10/30/22 01:30 71 26 103/56 (81) 95 Nasal Cannula 2.00 10/30/22 01:15 72 21 103/59 (83) 95 Nasal Cannula 2.00 10/30/22 01:15 71 22 103/59 (83) 96 Nasal Cannula 2.00 10/30/22 01:12 36.6 10/30/22 01:00 71 22 113/50 (72) 97 Nasal Cannula 2.00 10/30/22 01:00 71 10/30/22 01:00 72 31 113/50 (72) 97 Nasal Cannula 2.00 10/30/22 00:45 70 28 101/55 (76) 96 Nasal Cannula 2.00 10/30/22 00:44 36.5 10/30/22 00:30 73 32 100/55 (73) 96 10/30/22 00:20 36.5 10/30/22 00:15 73 31 110/58 (81) 96 Nasal Cannula 2.00 10/30/22 00:00 104/57 (79) 10/30/22 00:00 73 23 104/57 (79) 96 Nasal Cannula 2.00 10/29/22 23:59 97 Nasal Cannula 2.00 10/29/22 23:46 36.6 10/29/22 23:45 73 37 104/52 (70) 96 Nasal Cannula 2.00 10/29/22 23:45 74 32 104/52 (70) 96 Nasal Cannula 2.00 10/29/22 23:30 66 84/49 (62) 94 Nasal Cannula 2.00 10/29/22 23:30 68 21 84/49 (62) 95 Nasal Cannula 2.00 10/29/22 23:24 36.5 10/29/22 23:15 75 24 99/61 (82) 95 Nasal Cannula 2.00 10/29/22 23:15 69 21 99/61 (82) 94 Nasal Cannula 2.00 10/29/22 23:00 67 23 84/50 (59) 94 Nasal Cannula 2.00 10/29/22 23:00 68 21 84/50 (59) 94 Nasal Cannula 2.00 10/29/22 22:45 71 22 85/58 (76) 94 Nasal Cannula 2.00 10/29/22 22:45 71 21 85/58 (76) 94 Nasal Cannula 2.00 10/29/22 22:34 74 17 91/51 (63) 93 Nasal Cannula 2.00 10/29/22 22:34 75 21 91/51 (63) 93 Nasal Cannula 2.00 10/29/22 22:30 72 19 93 Nasal Cannula 2.00 10/29/22 22:15 103 12 94 Nasal Cannula 2.00 10/29/22 22:01 99 19 165/94 (101) 97 Nasal Cannula 2.00 10/29/22 22:00 94 23 192/86 (123) 96 Nasal Cannula 2.00 10/29/22 22:00 99 19 192/86 (123) 97 Nasal Cannula 2.00 10/29/22 21:49 75 27 96 Nasal Cannula 2.00 10/29/22 21:45 64 20 121/69 (85) 96 Nasal Cannula 2.00 10/29/22 21:45 64 19 121/69 (85) 96 Nasal Cannula 2.00 10/29/22 21:34 63 20 96 Nasal Cannula 2.00 10/29/22 21:30 64 17 128/62 (88) 96 Nasal Cannula 2.00 10/29/22 21:30 61 21 128/62 (88) 96 Nasal Cannula 2.00 10/29/22 21:19 62 20 96 Nasal Cannula 2.00 10/29/22 21:15 62 21 122/69 (89) 96 Nasal Cannula 2.00 10/29/22 21:15 62 20 122/69 (89) 96 Nasal Cannula 2.00 10/29/22 21:04 61 21 98 Nasal Cannula 2.00 10/29/22 21:00 61 20 80/56 (69) 97 Nasal Cannula 2.00 10/29/22 21:00 61 21 80/56 (69) 97 Nasal Cannula 2.00 10/29/22 20:56 64 52/40 10/29/22 20:49 60 21 97 Nasal Cannula 2.00 10/29/22 20:45 58 21 52/40 (45) 96 Nasal Cannula 2.00 10/29/22 20:45 58 22 52/40 (45) 97 Nasal Cannula 2.00 10/29/22 20:34 62 37 96 Nasal Cannula 2.00 10/29/22 20:30 60 17 83/50 (59) 97 Nasal Cannula 2.00 10/29/22 20:30 62 26 83/50 (59) 97 Nasal Cannula 2.00 10/29/22 20:21 36.5 55 90 10/29/22 20:19 60 22 98 Nasal Cannula 2.00 10/29/22 20:15 61 18 90/67 (74) 97 Nasal Cannula 2.00 10/29/22 20:15 61 16 90/67 (74) 99 Nasal Cannula 2.00 10/29/22 20:08 60 22 90/43 (62) 9 Nasal Cannula 2.00 10/29/22 20:08 61 21 90/43 (62) 99 Nasal Cannula 2.00 10/29/22 20:04 59 19 96 Nasal Cannula 2.00 10/29/22 20:00 97 Nasal Cannula 2.00 10/29/22 20:00 36.4 61 20 77/40 (52) 98 Nasal Cannula 2.00 10/29/22 20:00 61 19 77/40 (52) 99 Nasal Cannula 2.00 10/29/22 19:49 61 15 99 10/29/22 19:45 63 21 109/47 (59) 100 Nasal Cannula 2.00 10/29/22 19:43 63 10/29/22 19:42 62 24 123/52 (62) 95 Nasal Cannula 2.00 10/29/22 19:35 93 Nasal Cannula 2.00 10/29/22 19:31 65 18 98/57 98 10/29/22 14:03 36.5 55 16 107/97 (100) 90 Nasal Cannula 2.00 I & O 10/30/22 07:00 Intake Total 3975 ml Output Total 2000 ml Balance 1975 ml Height & Weight Height: 5'5.00" Weight: 164lbs. 6.4oz. [id number]; 31.80 BMI Method:Stated General Appearance: WD/WN, Anxious, Chronically ill HEENT: PERRL/EOMI, Normal ENT Inspection Neck: Normal Inspection Respiratory: Lungs Clear, Normal Breath Sounds, No Accessory Muscle Use, Decreased Breath Sounds Cardiovascular: Regular Rate, Rhythm, No Edema, No Murmur Capillary Refill: Less Than 3 Seconds Gastrointestinal: normal bowel sounds, non tender, soft Extremity: Normal Inspection, No Pedal Edema Neurologic/Psychiatric: Alert, Normal Mood/Affect, Disoriented Skin: Normal Color, Warm/Dry Results Lab Laboratory Tests 10/29/22 14:05 10/30/22 03:16 Assessment/Plan Assessment/Plan UTI, on IV Cefepime,will continue, await ID on gnr in urine will try to lower pressor dose Diarrhea, getting IVF. Pt is DNR Critical Care: Critically Ill Patient Time spent with patient (mins): 25 MICHELE RAMIREZ MD Oct 30, 2022 08:34
[2022-10-30] MEDS: CEFEPIME INJECTION 1,000 MG in NS (IVPB) 50 ML IV SCH ×2 (08:47→21:02)
[2022-10-30] MEDS: DOCUSATE SODIUM 100 MG (COLACE) CAP PO SCH ×2 (09:00→21:03)
[2022-10-30] MEDS: SENNOSIDES 8.6 MG (SENOKOT) TAB PO SCH ×2 (09:00→21:04)
[2022-10-30] MEDS ORDERED: PREG150C46 PO (10:16)
[2022-10-30] MEDS: NOREPINEPHRINE 8 MG/250 ML 250 ML IV SCH (10:45)
--- NOTE | 2022-10-30 11:38 | Physical Therapy Evaluation ---
PT Evaluation-General Medical Diagnosis Admission Date Oct 29, 2022 at 19:33 Medical Diagnosis: acute kidney injury/hypotension/AMS Onset Date: Oct 29, 2022 Therapy Diagnosis Therapy Diagnosis: debility Height/Weight Height (Feet): 5 Height (Inches): 5.00 Weight (Pounds): 164 Weight (Ounces): 6.4 Precautions Precautions/Isolations: Standard Precautions Weight Bear Status Right Lower Extremity: Right Non Weight Bearing Left Lower Extremity: Left Non Weight Bearing Referral Physician: Nba Reason for Referral: Evaluation/Treatment Medical History Pertinent Medical History: CAD, COPD, DM, Dementia, GERD, HTN, Neuropathy, PVD, Smoking Current History EMS from [place] secondary to weakness/fatigue Reviewed History: Yes Social History Home: Custodial Prior Prior Level of Function SCALE: Activities may be completed with or without assistive devices. 9-Ezurcedvzo-paluoth completes the activity by him/herself with no assistance from a helper. 5-Set-up or Clean-up Assistance-helper sets up or cleans up; patient completes activity. [place] assists only prior to or following the activity. 4-Supervision or Touching Assistance-helper provides verbal cues and/or touching/steadying and/or contact guard assistance as patient completes activity. Assistance may be provided throughout the activity or intermittently. 3-Partial/Moderate Assistance-helper does LESS THAN HALF the effort. [place] lifts, holds or supports trunk or limbs, but provides less than half the effort. 2-Substantial/Maximal Assistance-helper does MORE THAN HALF the effort. [place] lifts or holds trunk or limbs and provides more than half the effort. 0-Cwxlcqwbb-pdberb does ALL the effort. Patient does none of the effort to complete the activity. Or, the assistance of 2 or more helpers is required for the patient to complete the activity. If activity was not attempted, code reason: 7-Patient Refused. 9-Not Applicable-not attempted and the patient did not perform the activity before the current illness, exacerbation or injury. 10-Not Attempted due to Environmental Limitations-(lack of equipment, weather restraints, etc.). 88-Not Attempted due to Medical Conditions or Safety Concerns. Bed Mobility: 4 Transfers (B,C,W/C): 4 Gait: 9 Stairs: 9 Wheelchair Mobility: 4 Indoor Mobility (Ambulation): Not [place] Stairs: Not [place] Prior Devices Use: Manual wheelchair PT Evaluation-Current Subjective Patient agrees to PT. Objective Patient Orientation: Person ROM/Strength ROM Lower Extremities bilateral LE WFL Strength Lower Extremities 3/5 grossly bilateral LE Integumentary/Posture Bladder Incontinence: Slater Cath Posture WFL Neuromuscular (Tone, Coordination, Reflexes) grossly intact Sensory Vision: Wears Glasses Hearing: Functional Transfers Lying to Sitting/Side of Bed(Q: 4 Sit to Stand (QC): 4 Chair/Ltw-iq-Gzbpy Xfer(QC): 4 CGA for safety Gait Does the Patient Walk?: No and Walking Goal NOT indicated Walk 10 feet (QC): 9 Walk 50 ft with 2 Turns(QC): 9 Walk 150 ft (QC): 9 Wheelchair Training Type of Wheelchair: Manual Balance Sitting Static: Normal Sitting Dynamic: Normal Standing Static: Fair Standing Dynamic: Fair Assessment/Needs Patient will be seen short term by skilled PT to address transfers/bed mobility to ensure safe return to [place]. Rehab Potential: Fair PT Quality Systems Engineer Goals Senior Care Goals PT Senior Care Goals Time Frame: Nov 03, 2022 Roll Left & Right (QC): 4 Sit to Lying (QC): 4 Lying-Sitting on Side/Bed(QC): 4 Sit to Stand (QC): 4 Chair/Pzy-dm-Dkbbz Xfer(QC): 4 PT Plan Problem List Problem List: Activity Tolerance, Functional Strength, Safety, Balance, Trans scarlet, Bed Mobility Treatment/Plan Treatment Plan: Continue Plan of Care Treatment Plan: Bed Mobility, Education, Functional Activity [place], Functional Strength, Safety, Therapeutic Exercise, Transfers Treatment Duration: Nov 03, 2022 Frequency: 5 times per week Estimated Hrs Per Day: .25 hour per day Patient and/or Family Agrees t: Yes Time Time In: 1115 Time Out: 1130 DATE: Oct 30, 2022 Total Billed Treatment Time: 15 [facility] RUI[facility]YNN [facility] Oct 30, 2022 11:37
--- NOTE | 2022-10-30 11:38 | Occupational Therapy Eval ---
OT Evaluation-General/PLF Medical Diagnosis Admission Date Oct 29, 2022 at 19:33 Medical Diagnosis: acute kidney injury Onset Date: Oct 29, 2022 Therapy Diagnosis Therapy Diagnosis: weakness Height/Weight Height (Feet): 5 Height (Inches): 5.00 Weight (Pounds): 164 Weight (Ounces): 6.4 Precautions Precautions/Isolations: Standard Precautions Weight Bear Status Weight Bearing Restriction: Weight Bearing/Tolerated Location Restriction: LE Bilateral, UE Bilateral Referral Referral Reason: Evaluation/Treatment Medical History Pertinent Medical History: CAD, COPD, DM, Dementia, GERD, HTN, Neuropathy, PVD, Smoking Additional Medical History 72yo[place] patient of [facility] who is known to me since last admit 1 week ago for AMS without source who presented to the ER from [place] for AMS with KISHOR and evidence of sepsis from UTI with mild hypotension requiring transfer to ICU Current History PLOF mcc w/ transfer pole min assist of one, self propels WC w/ all 4 extremities, assist w/ all ADLS Reviewed History: Yes Social History Home: Jail Current Living Status: Alone Entry Into Home: Level Entry ADL-Prior Level of Function SCALE: Activities may be completed with or without assistive devices. 9-Mkwwjykhso-neemyja completes the activity by him/herself with no assistance from a helper. 5-Set-up or Clean-up Assistance-helper sets up or cleans up; patient completes activity. [place] assists only prior to or following the activity. 4-Supervision or Touching Assistance-helper provides verbal cues and/or touching/steadying and/or contact guard assistance as patient completes activity. Assistance may be provided throughout the activity or intermittently. 3-Partial/Moderate Assistance-helper does LESS THAN HALF the effort. [place] lifts, holds or supports trunk or limbs, but provides less than half the effort. 2-Substantial/Maximal Assistance-helper does MORE THAN HALF the effort. [place] lifts or holds trunk or limbs and provides more than half the effort. 0-Flhnltnfx-sninnv does ALL the effort. Patient does none of the effort to complete the activity. Or, the assistance of 2 or more helpers is required for the patient to complete the activity. If activity was not attempted, code reason: 7-Patient Refused. 9-Not Applicable-not attempted and the patient did not perform the activity before the current illness, exacerbation or injury. 10-Not Attempted due to Environmental Limitations-(lack of equipment, weather restraints, etc.). 88-Not Attempted due to Medical Conditions or Safety Concerns. Self Care: Needed Some Help Functional Cognition: Needed Some Help Drive Self: No OT Current Status Subjective Agreeable to OT recognizes OT Mental Status/Objective Patient Orientation: Person, Place, Time, Situation Attachments: Slater Catheter, IV, Oxygen, SCD's, Telemetry Current Glasses/Contacts: Yes Upper Extremity ROM BUE ROM WFLS, limited close joint approximation Upper Extremity Strength +3/5 ADL-Treatment Eating (QC): 6 Oral Hygiene (QC): 5 Shower/Bathe Self (QC): 7 Upper Body Dressing (QC): 4 Lower Body Dressing (QC): 3 On/Off Footwear (QC): 4 Toileting Hygiene (QC): 3 Education OT Patient Education: Correct positioning, Modified ADL techniques, Progress toward Goal/Update tx plan, Purpose of tx/functional activities, Reviewed precautions, Rehab process, Safety issues, Transfer techniques Teaching Recipient: Patient Teaching Methods: Demonstration, Discussion Response to Teaching: Return Demonstration OT Jail Goals Hris Manager Goals 1=Demonstrate adherence to instructed precautions during ADL tasks. 2=Patient will verbalize/demonstrate understanding of assistive devices/modifications for ADL. 3=Patient will improve strength/tolerance for activity to enable patient to perform ADL's. OT Education/Plan Problem List/Assessment Assessment: No Skilled OT Needs ID'd Discharge Recommendations Plan/Recommendations: Discontinue OT Therapy Discharge Recommendati: Other, See Comments (return to [place]) Treatment Plan/Plan of Care Patient would benefit from OT for education, treatment and training to promote independence in ADL's, mobility, safety and/or upper extremity function for ADL's. Plan of Care: OTHER (EVAL ONLY) Treatment Duration: Oct 30, 2022 Frequency: 1 time per week Estimated Hrs Per Day: .25 hour per day Rehab Potential: Guarded Time Start Time: 11:15 Stop Time: 11:30 DATE: Oct 30, 2022 Total Time Billed (hr/min): 15 Billed Treatment Time EVM 15 HANSEL FLANAGAN OT Oct 30, 2022 11:38
[2022-10-30] MEDS ORDERED: LOPERAMIDE 2 MG (IMODIUM) TABLET PO PRN (19:30)
[2022-10-30] MEDS ORDERED: guaiFENesin/DM (ROBITUSSIN DM) 10 ML UDC PO PRN (19:30)
[2022-10-30] MEDS: PREGABALIN 150 MG (LYRICA) CAPSULE PO SCH (19:56)
[2022-10-30] MEDS: MECLIZINE 25 MG (ANTIVERT) TAB PO SCH (21:03)
[2022-10-30] MEDS: ARTIFICAL TEARS 0.4 ML UNIT DOSE (REFRESH PLUS) OD SCH (21:03)
[2022-10-30] MEDS: guaiFENesin (MUCINEX) 600 MG TAB PO SCH (21:03)
[2022-10-30] MEDS: ACETAMINOPHEN 500 MG TAB (TYLENOL) PO SCH (21:04)
[2022-10-30] MEDS: MICONAZOLE 2% POWDER (DESENEX AF) 90 GM TOP SCH (21:04)
[2022-10-30] MEDS: DICLOFENAC 1% GEL 100 GM (VOLTAREN) TUBE TP SCH (21:05)
[2022-10-31 04:00] LABS: BASOPHILS % (AUTO) 1 % (0-10); EOSINOPHILS # (AUTO) 0.3 10^3/uL (0.0-0.3); EOSINOPHILS % (AUTO) 4 % (0-10); HEMATOCRIT 30 % (35-52); HEMOGLOBIN 9.8 g/dL (11.5-16.0); LYMPHOCYTES # (AUTO) 1.9 10^3/uL (1.0-4.0); LYMPHOCYTES % (AUTO) 30 % (12-44); MEAN CORPUSCULAR HEMOGLOBIN 28 pg (25-34); MEAN CORPUSCULAR HGB CONC 33 g/dL (32-36); MEAN CORPUSCULAR VOLUME 85 fL (80-99); MEAN PLATELET VOLUME 9.5 fL (9.0-12.2); MONOCYTES # (AUTO) 0.7 10^3/uL (0.0-1.0); MONOCYTES % (AUTO) 11 % (0-12); NEUTROPHILS # (AUTO) 3.4 10^3/uL (1.8-7.8); NEUTROPHILS % (AUTO) 53 % (42-75); PLATELET COUNT 144 10^3/uL (130-400); WHITE BLOOD COUNT 6.3 10^3/uL (4.3-11.0)
[2022-10-31] MEDS: NS IV 1000 ML 1,000 ML IV SCH ×3 (04:18→23:28)
[2022-10-31] MEDS: NOREPINEPHRINE 8 MG/250 ML 250 ML IV SCH (04:18)
[2022-10-31 04:33] LABS: ALBUMIN 3.2 GM/DL (3.2-4.5); POTASSIUM 3.9 MMOL/L (3.6-5.0)
[2022-10-31 04:34] LABS: CALCIUM 8.2 MG/DL (8.5-10.1)
[2022-10-31 04:36] LABS: TOTAL PROTEIN 5.5 GM/DL (6.4-8.2)
[2022-10-31 04:38] LABS: BILIRUBIN,TOTAL 0.3 MG/DL (0.1-1.0)
[2022-10-31 04:39] LABS: PHOSPHORUS 2.5 MG/DL (2.3-4.7)
[2022-10-31 04:40] LABS: CREATININE SERUM 1.37 MG/DL (0.60-1.30)
[2022-10-31 04:43] LABS: MAGNESIUM 2.1 MG/DL (1.6-2.4)
[2022-10-31] MEDS: POTASSIUM CL 10MEQ/50ML IVPB 50 ML IV SCH (04:50)
[2022-10-31] MEDS: MAGNESIUM 1 GM/100 ML IVPB 100 ML IV SCH (04:50)
[2022-10-31] MEDS: KCL 20 MEQ TAB (K-DUR) PO SCH (04:51)
[2022-10-31] MEDS: inSUlin ASPART (NovoLOG) 1 UNIT/0.01 ML (CHARGE PER UNIT) SC SCH ×4 (05:49→20:29)
[2022-10-31] MEDS ORDERED: KCL 20 MEQ TAB (K-DUR) PO ONE (08:00)
[2022-10-31] MEDS ORDERED: CEFEPIME INJECTION 1,000 MG in NS (IVPB) 50 ML IV SCH (09:00)
[2022-10-31] MEDS: MICONAZOLE 2% POWDER (DESENEX AF) 90 GM TOP SCH ×2 (10:05→20:42)
[2022-10-31] MEDS: DICLOFENAC 1% GEL 100 GM (VOLTAREN) TUBE TP SCH ×3 (10:05→20:42)
[2022-10-31] MEDS: PREGABALIN 150 MG (LYRICA) CAPSULE PO SCH ×3 (10:06→20:39)
[2022-10-31] MEDS: guaiFENesin (MUCINEX) 600 MG TAB PO SCH ×2 (10:06→20:40)
[2022-10-31] MEDS: ROSUVASTATIN 20 MG (CRESTOR) TABLET PO SCH (10:06)
[2022-10-31] MEDS: MECLIZINE 25 MG (ANTIVERT) TAB PO SCH ×2 (10:06→20:40)
[2022-10-31] MEDS: FERROUS SULF 325 MG (IRON) TAB PO SCH (10:06)
[2022-10-31] MEDS: ASPIRIN 81 MG CHEW (CHILDREN'S ASA) PO SCH (10:06)
[2022-10-31] MEDS: DOCUSATE SODIUM 100 MG (COLACE) CAP PO SCH ×2 (10:07→20:40)
[2022-10-31] MEDS: PANTOPRAZOLE 20 MG TABLET (PROTONIX) PO SCH (10:07)
[2022-10-31] MEDS: ARTIFICAL TEARS 0.4 ML UNIT DOSE (REFRESH PLUS) OD SCH ×4 (10:07→20:39)
[2022-10-31] MEDS: ACETAMINOPHEN 500 MG TAB (TYLENOL) PO SCH ×2 (10:07→20:41)
[2022-10-31] MEDS: SENNOSIDES 8.6 MG (SENOKOT) TAB PO SCH ×2 (10:07→20:40)
--- NOTE | 2022-10-31 10:14 | Physical Therapy Progress Note ---
Therapy Progress Note Patient lying supine in bed upon PT arrival, adamantly refused treatment. Patient educated on benefits of activity to promote healing, however continued to refuse. ROMEL MALAVE PT Oct 31, 2022 10:14
--- NOTE | 2022-10-31 10:46 | Progress Note ---
DARYL GERARDO 10/31/22 1046: Subjective Date Seen by a Provider: Oct 31, 2022 Time Seen by a Provider: 09:10 Subjective/Events-last exam Patient seen and examined at bedside this morning. She reports that she feels much better and would like to go home as soon as possible. She denies any pain, shortness of breath, fever/chills, N/V/D. She denies any suprapubic or flank pain. Has not had hematuria. Urine output appropriate. Review of Systems General: No Chills, No Night Sweats HEENT: No Head Aches, No Visual Changes Pulmonary: No Dyspnea, No Cough Cardiovascular: No: Chest Pain, Palpitations Gastrointestinal: No: Nausea, Vomiting, Abdominal Pain Genitourinary: No Dysuria, No Hematuria Neurological: No: Change in speech, Confusion Focused Exam Lactate Level 10/29/22 14:12: Lactic Acid Level 1.65 Objective Exam Last Set of Vital Signs Vital Signs Date Time Temp Pulse Resp B/P (MAP) Pulse Ox O2 Delivery O2 Flow Rate FiO2 10/31/22 09:00 87 17 140/82 (101) Room Air 10/31/22 06:54 97 0.00 10/31/22 04:00 36.8 Capillary Refill : Less Than 3 Seconds I&O Intake and Output 10/31/22 00:00 Intake Total 3450 ml Output Total 3675 ml Balance -225 ml Intake Oral 2350 ml IV Total 1100 ml Output Urine Total 3675 ml General: Alert, Oriented X3, Cooperative HEENT: Atraumatic, EOMI Neck: Supple Lungs: Clear to Auscultation, Normal Air Movement Heart: Regular Rate, Normal S1, Normal S2 Abdomen: Soft, No Tenderness Extremities: No Cyanosis, No Edema Neuro: Normal Speech Psych/Mental Status: Mental Status NL, Mood NL Results Lab Laboratory Tests 10/30/22 10:40: Glucometer 320H 10/30/22 15:38: Glucometer 298H 10/30/22 21:04: Glucometer 357H 10/31/22 03:45: White Blood Count 6.3, Red Blood Count 3.52L, Hemoglobin 9.8L, Hematocrit 30L, Mean Corpuscular Volume 85, Mean Corpuscular Hemoglobin 28, Mean Corpuscular Hemoglobin Concent 33, Red Cell Distribution Width 15.4H, Platelet Count 144, Mean Platelet Volume 9.5, Immature Granulocyte % (Auto) 1, Neutrophils (%) (Auto) 53, Lymphocytes (%) (Auto) 30, Monocytes (%) (Auto) 11, Eosinophils (%) (Auto) 4, Basophils (%) (Auto) 1, Neutrophils # (Auto) 3.4, Lymphocytes # (Auto) 1.9, Monocytes # (Auto) 0.7, Eosinophils # (Auto) 0.3, Basophils # (Auto) 0.0, Immature Granulocyte # (Auto) 0.1, Sodium Level 143, Potassium Level 3.9, Chloride Level 116H, Carbon Dioxide Level 18L, Anion Gap 9, Blood Urea Nitrogen 20H, Creatinine 1.37H, Estimat Glomerular Filtration Rate 41, BUN/Creatinine Ratio 15, Glucose Level 137H, Calcium Level 8.2L, Corrected Calcium 8.8, Phosphorus Level 2.5, Magnesium Level 2.1, Total Bilirubin 0.3, Aspartate Amino Transf (AST/SGOT) 14, Alanine Aminotransferase (ALT/SGPT) 14, Alkaline Phosphatase 58, Total Protein 5.5L, Albumin 3.2 10/31/22 05:34: Glucometer 129H 10/31/22 10:33: Microbiology 10/29/22 MRSA Screen - Final, Complete MRSA not isolated 10/29/22 Blood Culture - Preliminary, Resulted No growth 10/29/22 Urine Culture - Preliminary, Resulted Escherichia coli Assessment/Plan Assessment/Plan Assess & Plan/Chief Complaint KISHOR creatinine down to 1.37, BUN and GFR improved continue IV fluids, currently getting 1L q8hr at 125mls/hr monitor urine output, 1.77 mg/kg/hr yesterday UTI Sepsis Continue cefepime Urine cx grew e coli Blood culture no growth WBC normalized Lactic acid normal at 1.6 Hypotension requiring pressors Off pressors now blood pressure stabilized 126/70 this morning continue to monitor pressure IV fluids as above Central line placed by general surgery Htn HLD continue aspirin and rosuvastatin DVT ppx- sq heparin DIET- regular Code- DNR VESTA AUSTIN DO 10/31/22 2010: Supervisory-Addendum Brief Verification & Attestation Participated in pt care: history, MDM, physical Personally performed: exam, history, MDM, supervision of care Care discussed with: Medical Student Procedures: n/a Results interpretation: Verified all documentation Verification and Attestation of Medical Student E/M Service A medical student performed and documented this service in my presence. I reviewed and verified all information documented by the medical student and made modifications to such information, when appropriate. I personally performed the physical exam and medical decision making. Vesta Austin, Oct 31, 2022,20:10 DARYL GERARDO Oct 31, 2022 10:46 VESTA AUSTIN DO Oct 31, 2022 20:10
[2022-10-31] MEDS: ceFAZolin INJECTION 2,000 MG in NS (IVPB) 50 ML IV SCH ×2 (14:59→23:28)
[2022-10-31 15:13] VITALS: BP 138/71
--- NOTE | 2022-10-31 16:25 | Physician Query-Final Dx ---
SARAH SWANSON 10/31/22 1625: Final Diagnosis Give Final Diagnosis Please give Final Diagnosis The medical record reflects the following clinical scenario: The patient, in the setting of History/Risk factors "from [place] for AMS with KISHOR and evidence of sepsis from UTI with mild hypotension requiring transfer to ICU", IDDM Clinical Findings Admission VS/LABS: HR 55, RR 16, BP 107/97 decreased as low as 52/40 on day of admission, SpO2 90% sat on 2 L, T 36.5, WBC 13.4,lactic acid 1.65 Treatment ER: Normal saline 3 L, ceftriaxone IV, Day of Admission: central line placed, Norepi gtt, ICU Question: Can you further specify Sepsis per the clinical indicators above? Please document your response in the Progress Notes or Discharge Summary. Severe sepsis with septic shock present on admission, resolving Other, with explanation of clinical findings Clinically undetermined, no explanation for clinical findings Please clarify and document your clinical opinion in the Progress Notes and Discharge Summary including the definitive and/or presumptive diagnosis, (suspected or probable), related to the above clinical findings. Please include clinical findings supporting your diagnosis. In responding to this query, please exercise your independent professional judgment. The purpose of this communication is to more accurately reflect the complexity of your patients condition. The fact that a question is asked does not imply that any particular answer is desired or expected. Thank you for timely response to this clarification. Sarah Swanson, MSN, RN Clinical Gas Or Petroleum Operator [phone] [email or web address] GUADALUPE AUSTIN DO 10/31/22 1918: Final Diagnosis Give Final Diagnosis Severe sepsis with septic shock present on admission, resolving SARAH SWANSON Oct 31, 2022 16:25 GUADALUPE AUSTIN DO Oct 31, 2022 19:18
--- NOTE | 2022-10-31 16:26 | Physician Query-Final Dx ---
SARAH SWANSON 10/31/22 1626: Final Diagnosis Give Final Diagnosis Please give Final Diagnosis The medical record reflects the following clinical evidence: Clinical Indicators: "from [facility] for AMS" GCS on admission day 13-14, documentation of confusion this did not seem to clear GCS was documented to be consistently 15 after treatment Risk Factor(s): Sepsis, UTI, KISHOR, IDDM, Hypotension, Hx of Dementia Treatment: IV antibiotics, IV fluids, neuro monitoring and hemodynamic monitoring in the ICU Metabolic encephalopathy, in the setting of chronic dementia present on admission, resolved Other explanation of clinical findings Unable to determine (no explanation for clinical findings) Please clarify and document your clinical opinion in the progress notes and discharge summary including the definitive and/or presumptive diagnosis, (suspected or probable), related to the above clinical findings. Please include clinical findings supporting your diagnosis. In responding to this query, please exercise your independent professional judgment. The purpose of this communication is to more accurately reflect the complexity of your patients condition. The fact that a question is asked does not imply that any particular answer is desired or expected. Thank you for timely response to this clarification. Sarah Swanson, MSN, RN Clinical Rat Trapper [phone] [email or web address] GUADALUPE AUSTIN DO 10/31/22 1919: Final Diagnosis Give Final Diagnosis Metabolic encephalopathy, in the setting of chronic dementia present on admission, resolved SARAH SWANSON Oct 31, 2022 16:26 GUADALUPE AUSTIN DO Oct 31, 2022 19:19
--- NOTE | 2022-10-31 16:26 | Physician Query-Final Dx ---
SARAH SWANSON 10/31/22 1626: Final Diagnosis Give Final Diagnosis Please give Final Diagnosis The medical record reflects the following clinical evidence: Clinical Indicators: RR 16 on arrival but has been in the 20s and 30s frequently. 02 at 2L initially for O2 sat of 90% O2 sat occasionally dropped to 90% while on oxygen (P/F=214), O2 sat dropped to 82%, 84% and 87% when off oxygen, documentation of shortness of air at rest on admission Risk Factor(s): Sepsis, UTI, possible pneumonia per consult Treatment: Supplemental 02 at 2L for approx. 48 hours, IV ABX, Respiratory monitoring, Acute respiratory failure with hypoxia, present on admission Other explanation of clinical findings Unable to determine (no explanation for clinical findings) Please clarify and document your clinical opinion in the progress notes and discharge summary including the definitive and/or presumptive diagnosis, (suspected or probable), related to the above clinical findings. Please include clinical findings supporting your diagnosis. Sarah Swanson MSN, RN Clinical Yard Switcher [phone] [email or web address] GUADALUPE AUSTIN DO 10/31/22 1919: Final Diagnosis Give Final Diagnosis Acute respiratory failure with hypoxia, present on admission SARAH SWANSON Oct 31, 2022 16:26 GUADALUPE AUSTIN DO Oct 31, 2022 19:19
[2022-10-31 20:10] VITALS: BP 150/63
[2022-11-01 01:00] VITALS: BP 118/72
[2022-11-01] MEDS: ceFAZolin INJECTION 2,000 MG in NS (IVPB) 50 ML IV SCH (06:27)
[2022-11-01] MEDS: inSUlin ASPART (NovoLOG) 1 UNIT/0.01 ML (CHARGE PER UNIT) SC SCH ×2 (06:27→11:37)
[2022-11-01 06:46] LABS: BASOPHILS % (AUTO) 0 % (0-10); EOSINOPHILS # (AUTO) 0.3 10^3/uL (0.0-0.3); EOSINOPHILS % (AUTO) 4 % (0-10); HEMATOCRIT 31 % (35-52); HEMOGLOBIN 10.2 g/dL (11.5-16.0); LYMPHOCYTES # (AUTO) 1.6 10^3/uL (1.0-4.0); LYMPHOCYTES % (AUTO) 24 % (12-44); MEAN CORPUSCULAR HEMOGLOBIN 28 pg (25-34); MEAN CORPUSCULAR HGB CONC 33 g/dL (32-36); MEAN CORPUSCULAR VOLUME 86 fL (80-99); MEAN PLATELET VOLUME 9.6 fL (9.0-12.2); MONOCYTES # (AUTO) 0.6 10^3/uL (0.0-1.0); MONOCYTES % (AUTO) 10 % (0-12); NEUTROPHILS # (AUTO) 3.9 10^3/uL (1.8-7.8); NEUTROPHILS % (AUTO) 60 % (42-75); PLATELET COUNT 145 10^3/uL (130-400); WHITE BLOOD COUNT 6.5 10^3/uL (4.3-11.0)
[2022-11-01 06:50] LABS: ALBUMIN 3.3 GM/DL (3.2-4.5)
[2022-11-01 06:51] LABS: POTASSIUM 4.3 MMOL/L (3.6-5.0)
[2022-11-01 06:52] LABS: CALCIUM 8.5 MG/DL (8.5-10.1)
[2022-11-01 06:53] LABS: TOTAL PROTEIN 5.7 GM/DL (6.4-8.2)
[2022-11-01 06:55] LABS: BILIRUBIN,TOTAL 0.3 MG/DL (0.1-1.0)
[2022-11-01 06:56] LABS: CREATININE SERUM 1.28 MG/DL (0.60-1.30)
[2022-11-01 06:59] LABS: MAGNESIUM 1.8 MG/DL (1.6-2.4)
[2022-11-01 07:44] VITALS: BP 143/70
[2022-11-01] MEDS: ARTIFICAL TEARS 0.4 ML UNIT DOSE (REFRESH PLUS) OD SCH ×2 (08:28→13:21)
[2022-11-01] MEDS: ROSUVASTATIN 20 MG (CRESTOR) TABLET PO SCH (08:28)
[2022-11-01] MEDS: PREGABALIN 150 MG (LYRICA) CAPSULE PO SCH (08:29)
[2022-11-01] MEDS: ACETAMINOPHEN 500 MG TAB (TYLENOL) PO SCH (08:29)
[2022-11-01] MEDS: PANTOPRAZOLE 20 MG TABLET (PROTONIX) PO SCH (08:29)
[2022-11-01] MEDS: SENNOSIDES 8.6 MG (SENOKOT) TAB PO SCH (08:29)
[2022-11-01] MEDS: FERROUS SULF 325 MG (IRON) TAB PO SCH (08:29)
[2022-11-01] MEDS: guaiFENesin (MUCINEX) 600 MG TAB PO SCH (08:29)
[2022-11-01] MEDS: MECLIZINE 25 MG (ANTIVERT) TAB PO SCH (08:29)
[2022-11-01] MEDS: DOCUSATE SODIUM 100 MG (COLACE) CAP PO SCH (08:29)
[2022-11-01] MEDS: ASPIRIN 81 MG CHEW (CHILDREN'S ASA) PO SCH (08:29)
[2022-11-01] MEDS: MICONAZOLE 2% POWDER (DESENEX AF) 90 GM TOP SCH (08:30)
[2022-11-01] MEDS: DICLOFENAC 1% GEL 100 GM (VOLTAREN) TUBE TP SCH ×2 (08:30→13:21)
[2022-11-01] MEDS: NS IV 1000 ML 1,000 ML IV SCH ×2 (08:44→12:19)
--- NOTE | 2022-11-01 09:11 | Progress Note ---
DARYL GERARDO 11/01/22 0911: Progress Note Latonia Chou is a 72yo F who presented to the ED on 10/29. Past medical history is significant for anemia, CAD, chronic kidney disease, depression, HTN, T2DM, anxiety , GERD, HLD, and peripheral vascular disease. HPI from ED: "This 72-year-old woman presents to the emergency room via EMS from [facility] with complaint of altered mental status. She had recently been admitted to this facility for altered mental status and metabolic encephalopathy. She was discharged back to the senior living on October 26. Staff reports that she has had increased weakness. Outpatient labs revealed elevated BUN and creatinine. She reportedly had a CT study anticipated but could not follow through with that CT study due to her renal function. I am not aware of what study was ordered. Patient is alert and has no specific complaints on my assessment. She is confused, but she also has dementia at baseline. Nursing staff reported that she had copious volume this diarrhea after arrival to the ER." In the ED she was found to have an acute kidney injury, leukocytosis, and a UA was suspicious for urinary tract infection. She was given 2L of fluids for her KISHOR and was started on rocephin. She was initially admitted to the ICU for management of her UTI and Acute kidney injury. HPI from admission: "HPI: This is a 72yo[place] patient of [facility] who is known to me since last admit 1 week ago for AMS without source who presented to the ER from [place] for AMS with KISHOR and evidence of sepsis from UTI with mild hypotension requiring transfer to ICU. She has had copious amount of diarrhea so stool studies have been ordered along with Imodium." General surgery was consulted and placed a central line on 10/29 due to venous insufficiency. She was also found to be hypotensive and required norepinephrine briefly after admission. This was corrected and her blood pressure improved with fluids with no more pressors being required. Her kidney function progressively improved with fluids normalizing to 1.28. Her urine culture grew E. coli and she was treated with cefepime initally that was changed to cefazolin after culture results returned. She was transferred to the medical/surgical floor on 10/31. Improvement was noted in both her WBC count and kidney function. Home medicines were resumed. She will be transitioned to oral abx for her UTI with likely discharge on 11/01. She will require follow up with her PCP and threader operator. VESTA AUSTIN DO 11/01/222116: Supervisory-Addendum Brief Verification & Attestation Participated in pt care: history, MDM, physical Personally performed: exam, history, MDM, supervision of care Care discussed with: Medical Student Procedures: n/a Results interpretation: Verified all documentation Verification and Attestation of Medical Student E/M Service A medical student performed and documented this service in my presence. I reviewed and verified all information documented by the medical student and made modifications to such information, when appropriate. I personally performed the physical exam and medical decision making. Vesta Austin, Nov 01, 2022,21:17 DARYL GERARDO Nov 01, 2022 09:11 VESTA AUSTIN DO Nov 01, 2022 21:17
--- NOTE | 2022-11-01 10:25 | Physical Therapy Progress Note ---
Therapy Progress Note Patient adamantly declined PT and closed her eyes and would not answer questions asked by this PT. RUIZ LYNN PT Nov 01, 2022 10:25
[2022-11-01] MEDS ORDERED: CEFD300C3 PO (11:17)
--- NOTE | 2022-11-01 11:18 | Discharge Inst-Skilled Nursing ---
Discharge Inst-Skilled NF Reconcile Patient Problems Problems Reviewed?: Yes Chief Complaint CC: Sepsis HPI: This is a 72yoWF [place] patient of [facility] who is known to me since last admit 1 week ago for AMS without source who presented to the ER from [place] for AMS with KISHOR and evidence of sepsis from UTI with mild hypotension requiring transfer to ICU. She has had copious amount of diarrhea so stool studies have been ordered along with Imodium. Patient Instructions Patient Problems: UTI Sepsis KISHOR Consult/Follow Up/Orders Follow Up Appt.: PCP 1 week Skilled NF Admit to: [facility] Certification ([facility]) I certify that [facility] services are required to be given on an inpatient basis because of the above named patient's need for shelter care on a continuing basis for the conditions(s) for which he/she was receiving inpatient hospital services prior to his/her transfer to the [facility]. 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-Evaluate & Treat, Physical Therapy-Evaluate & Treat Oxygen Delivery Method: Room Air Discharge Diet: ADA Diet Resuscitation Status: Do Not Resuscitate New & Resume Previous Orders New Medications: Cefdinir (Cefdinir) 300 Mg Capsule 300 MG PO BID, #10 CAP Continued Medications: Acetaminophen (Acetaminophen Extra Strength) 500 Mg Tablet 1000 MG PO BID, TAB Acetaminophen (Tylenol Extra Strength) 500 Mg Tablet 1000 MG PO Q6H PRN for PAIN-MILD (1-4) OR TEMPATURE, TAB Albuterol Sulfate (Albuterol Sulfate) 2.5 Mg/0.5 Ml Vial.neb 2.5 MG INH Q4H PRN for SHORTNESS OF BREATH, EACH Albuterol Sulfate (Ventolin Hfa) 90 Mcg Hfa.aer.ad 2 PUFF INH Q6H PRN for SHORTNESS OF BREATH, EA Amlodipine Besylate (Amlodipine Besylate) 5 Mg Tablet 5 MG PO DAILY, #30 TAB Aspirin (Aspirin) 81 Mg Tab.chew 81 MG PO DAILY, TAB Bumetanide (Bumetanide) 2 Mg Tablet 2 MG PO DAILY, TAB Carboxymethyl/Glycerin/Poly80 (Refresh Optive Advanced Drops) 0.5 %-1 %-0.5 % Drops 1 DROP OD QID, DROPS Cholecalciferol (Vitamin D3) (Vitamin D3) 125 Mcg Capsule 125 MCG PO DAILY, CAP Cyanocobalamin (Cyanocobalamin Injection) 1,000 Mcg/Ml Inj 1000 MCG IM MONTHLY, VIAL Diclofenac Sodium (Diclofenac Sodium) 1 % Gel..gram. 4 GM TP TID MDD 16GM, TUBE APPLY TO LEFT KNEE Escitalopram Oxalate (Escitalopram Oxalate) 20 Mg Tablet 20 MG PO DAILY, TAB Ferrous Sulfate (Ferrous Sulfate) 325 Mg Tablet 325 MG PO DAILY, TAB Glimepiride (Glimepiride) 4 Mg Tablet 4 MG PO DAILY, TAB Guaifenesin (Mucinex) 600 Mg Tab.er.12h 600 MG PO BID, TAB Guaifenesin/Dextromethorphan (Guaifenesin Dm Syrup) 100 Mg-10 Mg/5 Ml Syrup 10 ML PO Q4H PRN for COUGH, ML Insulin Aspart (Novolog Flexpen) 100 Unit/Ml (3 Ml) Solution UNITS SQ AC, EA CORRECTION SCALE: 200-250=13 UNITS 251-300=25 UNITS 301-350=38 UNITS 351-400=51 UNITS 401-450=64 UNITS 451-500=77 UNITS 501-550=90 UNITS Insulin Aspart (Novolog Flexpen) 100 Unit/Ml (3 Ml) Solution 30 UNITS SQ AC, #30 EA Insulin Glargine,Hum.rec.anlog (Toujeo Max Solostar) 300 Unit/Ml (3 Ml) Insuln.pen 50 UNITS SC 0800,1999, #30 UNITS Loperamide HCl (Imodium A-D) 2 Mg Capsule 2-4 MG PO Q3H PRN for DIARRHEA MDD 16MH, CAP GIVE 2 TABS TO EQUAL 4 MG AFTER 1ST LOOSE STOOL, THEN 1 TAB AFTER EVERY LOOSE STOOL Meclizine HCl (Meclizine HCl) 25 Mg Tablet 25 MG PO BID, TAB Metoprolol Tartrate (Metoprolol Tartrate) 50 Mg Tablet 50 MG PO BID, #60 TAB Pantoprazole Sodium (Protonix) 20 Mg Tablet.dr 20 MG PO DAILY, TAB Pregabalin (Pregabalin) 150 Mg Capsule 150 MG PO 0800,1400,2000, CAP Rosuvastatin Calcium (Rosuvastatin Calcium) 20 Mg Tablet 20 MG PO DAILY, TAB Tramadol HCl (Tramadol HCl) 50 Mg Tablet 50 MG PO Q6H PRN for PAIN-MODERATE (5-7), TAB Discontinued Medications: Losartan Potassium (Losartan Potassium) 100 Mg Tablet 100 MG PO DAILY, TAB Vesta Arango Nov 01, 2022 11:17 VESTA ARANGO DO Nov 01, 2022 11:18
[2022-11-01 11:23] VITALS: BP 194/73
[2022-11-01] MEDS ORDERED: AMLO5TAB4 PO (11:34)
[2022-11-01] MEDS ORDERED: cloNIDine 0.1 MG (CATAPRES) TAB PO NR (11:45)
[2022-11-01] MEDS ORDERED: amLODIPine 5 MG (NORVASC) TAB PO NR (12:00)
[2022-11-01 14:24] VITALS: BP 194/73
--- NOTE | 2022-11-01 21:18 | Discharge Summary ---
Diagnosis/Chief Complaint Date of Admission Oct 29, 2022 at 19:33 Date of Discharge Nov 01, 2022 at 14:25 Discharge Date: Nov 01, 2022 Discharge Diagnosis KISHOR creatinine down to 1.37, BUN and GFR improved continue IV fluids, currently getting 1L q8hr at 125mls/hr monitor urine output, 1.77 mg/kg/hr yesterday UTI Sepsis Continue cefepime Urine cx grew e coli Blood culture no growth WBC normalized Lactic acid normal at 1.6 Hypotension requiring pressors Off pressors now blood pressure stabilized 126/70 this morning continue to monitor pressure IV fluids as above Central line placed by general surgery Htn HLD continue aspirin and rosuvastatin DVT ppx- sq heparin DIET- regular Code- DNR Discharge Summary Discharge Physical Examination Allergies: Coded Allergies: Tetanus Vaccines and Toxoid (Unverified Allergy, Severe, 12/17/11) SWOLLEN HOT RED ARM ampicillin (Unverified Allergy, Unknown, 12/20/15) dulaglutide (Unverified Allergy, Unknown, 06/16/21) Vitals & I&Os Vital Signs Date Time Temp Pulse Resp B/P (MAP) Pulse Ox O2 Delivery O2 Flow Rate FiO2 11/01/22 14:24 36.8 82 18 194/73 92 Room Air 0.00 General Appearance: Alert, Oriented X3, Cooperative Respiratory: Clear to Auscultation Cardiovascular: Regular Rate, Normal S1 Psych/Mental Status: Mental Status NL Hospital Course Was the Problem List Reviewed?: Yes HPI from ED: "This 72-year-old woman presents to the emergency room via EMS from [facility] with complaint of altered mental status. She had recently been admitted to this facility for altered mental status and metabolic encephalopathy. [facility]. Staff reports that she has had increased weakness. Outpatient labs revealed elevated BUN and creatinine. She reportedly had a CT study anticipated but could not follow through with that CT study due to her renal function. I am not aware of what study was ordered. Patient is alert and has no specific complaints on my assessment. She is confused, but she also has dementia at baseline. Nursing staff reported that she had copious volume this diarrhea after arrival to the ER." In the ED she was found to have an acute kidney injury, leukocytosis, and a UA was suspicious for urinary tract infection. She was given 2L of fluids for her KISHOR and was started on rocephin. She was initially admitted to the ICU for management of her UTI and Acute kidney injury. HPI from admission: "HPI: This is a 72yoWF NH patient of [facility] who is known to me since last admit 1 week ago for AMS without source who presented to the ER from [place] for AMS with KISHOR and evidence of sepsis from UTI with mild hypotension requiring transfer to ICU. She has had copious amount of diarrhea so stool studies have been ordered along with Imodium." General surgery was consulted and placed a central line on 10/29 due to venous insufficiency. She was also found to be hypotensive and required norepinephrine briefly after admission. This was corrected and her blood pressure improved with fluids with no more pressors being required. Her kidney function progressively improved with fluids normalizing to 1.28. Her urine culture grew E. coli and she was treated with cefepime initally that was changed to cefazolin after culture results returned. She was transferred to the medical/surgical floor on 10/31. Improvement was noted in both her WBC count and kidney function. Home medicines were resumed. She will be transitioned to oral abx for her UTI with likely discharge on 11/01. 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 Labs (last 24 hrs) Laboratory Tests 10/29/22 14:05: White Blood Count 13.4H, Red Blood Count 4.54, Hemoglobin 12.6, Hematocrit 39, Mean Corpuscular Volume 85, Mean Corpuscular Hemoglobin 28, Mean Corpuscular Hemoglobin Concent 33, Red Cell Distribution Width 15.5H, Platelet Count 214, Mean Platelet Volume 10.4, Immature Granulocyte % (Auto) 2, Neutrophils (%) (Auto) 72, Lymphocytes (%) (Auto) 16, Monocytes (%) (Auto) 8, Eosinophils (%) (Auto) 2, Basophils (%) (Auto) 0, Neutrophils # (Auto) 9.7H, Lymphocytes # (A uto) 2.2, Monocytes # (Auto) 1.1H, Eosinophils # (Auto) 0.3, Basophils # (Auto) 0.1, Immature Granulocyte # (Auto) 0.2H, Sodium Level 137, Potassium Level 4.6, Chloride Level 106, Carbon Dioxide Level 21, Anion Gap 10, Blood Urea Nitrogen 45H, Creatinine 2.70#H, Estimat Glomerular Filtration Rate 18, BUN/Creatinine Ratio 17, Glucose Level 118H, Calcium Level 9.6, Corrected Calcium 9.7, Total Bilirubin 0.3, Aspartate Amino Transf (AST/SGOT) 17, Alanine Aminotransferase (ALT/SGPT) 19, Alkaline Phosphatase 55, C-Reactive Protein High Sensitivity 0.92H, Total Protein 6.7, Albumin 3.9 10/29/22 14:12: Lactic Acid Level 1.65 10/29/22 15:42: Urine Color YELLOW, Urine Clarity CLOUDY, Urine pH 5.5, Urine Specific Marion 1.020, Urine Protein 1+H, Urine Glucose (UA) NEGATIVE, Urine Ketones NEGATIVE, Urine Nitrite NEGATIVE, Urine Bilirubin NEGATIVE, Urine Urobilinogen 0.2, Urine Leukocyte Esterase 3+H, Urine RBC (Auto) 1+H, Urine RBC 0-2, Urine WBC 50-100H, Urine Squamous Epithelial Cells 0-2, Urine Crystals NONE, Urine Bacteria LARGEH, Urine Casts NONE, Urine Mucus NEGATIVE, Urine Culture Indicated YES 10/29/22 17:50: Prothrombin Time 13.6, INR Comment 1.0, Activated Partial Thromboplast Time 33 10/30/22 03:16: White Blood Count 18.4H, Red Blood Count 4.13, Hemoglobin 11.7, Hematocrit 35, Mean Corpuscular Volume 84, Mean Corpuscular Hemoglobin 28, Mean Corpuscular Hemoglobin Concent 34, Red Cell Distribution Width 15.5H, Platelet Count 271, Mean Platelet Volume 10.0, Immature Granulocyte % (Auto) 2, Neutrophils (%) (Auto) 67, Lymphocytes (%) (Auto) 22, Monocytes (%) (Auto) 8, Eosinophils (%) (Auto) 2, Basophils (%) (Auto) 0, Neutrophils # (Auto) 12.3H, Lymphocytes # (Auto) 4.1H, Monocytes # (Auto) 1.4H, Eosinophils # (Auto) 0.3, Basophils # (Auto) 0.1, Immature Granulocyte # (Auto) 0.3H, Neutrophils % (Manual) 70, Lymphocytes % (Manual) 24, Monocytes % (Manual) 5, Eosinophils % (Manual) 1, Blood Morphology Comment NORMAL, Sodium Level 138, Potassium Level 4.3, Chloride Level 112H, Carbon Dioxide Level 17L, Anion Gap 9, Blood Urea Nitrogen 39H, Creatinine 2.19H, Estimat Glomerular Filtration Rate 23, BUN/Creatinine Ratio 18, Glucose Level 263H, Calcium Level 8.3L, Corrected Calcium 8.8, Phosphorus Level 4.4, Magnesium Level 1.8, Total Bilirubin 0.3, Aspartate Amino Transf (AST/SGOT) 19, Alanine Aminotransferase (ALT/SGPT) 21, Alkaline Phosphatase 56, Total Protein 5.7L, Albumin 3.4 10/30/22 10:40: Glucometer 320H 10/30/22 15:38: Glucometer 298H 10/30/22 21:04: Glucometer 357H 10/31/22 03:45: White Blood Count 6.3, Red Blood Count 3.52L, Hemoglobin 9.8L, Hematocrit 30L, Mean Corpuscular Volume 85, Mean Corpuscular Hemoglobin 28, Mean Corpuscular Hemoglobin Concent 33, Red Cell Distribution Width 15.4H, Platelet Count 144, Mean Platelet Volume 9.5, Immature Granulocyte % (Auto) 1, Neutrophils (%) (Auto) 53, Lymphocytes (%) (Auto) 30, Monocytes (%) (Auto) 11, Eosinophils (%) (Auto) 4, Basophils (%) (Auto) 1, Neutrophils # (Auto) 3.4, Lymphocytes # (Auto) 1.9, Monocytes # (Auto) 0.7, Eosinophils # (Auto) 0.3, Basophils # (Auto) 0.0, Immature Granulocyte # (Auto) 0.1, Sodium Level 143, Potassium Level 3.9, Chloride Level 116H, Carbon Dioxide Level 18L, Anion Gap 9, Blood Urea Nitrogen 20H, Creatinine 1.37H, Estimat Glomerular Filtration Rate 41, BUN/Creatinine Ratio 15, Glucose Level 137H, Calcium Level 8.2L, Corrected Calcium 8.8, Phosphorus Level 2.5, Magnesium Level 2.1, Total Bilirubin 0.3, Aspartate Amino Transf (AST/SGOT) 14, Alanine Aminotransferase (ALT/SGPT) 14, Alkaline Phosphatase 58, Total Protein 5.5L, Albumin 3.2 10/31/22 05:34: Glucometer 129H 10/31/22 10:33: Glucometer 252H 10/31/22 15:15: Glucometer 166H 10/31/22 20:09: Glucometer 179H 11/01/22 05:56: Glucometer 203H 11/01/22 06:25: White Blood Count 6.5, Red Blood Count 3.61L, Hemoglobin 10.2L, Hematocrit 31L, Mean Corpuscular Volume 86, Mean Corpuscular Hemoglobin 28, Mean Corpuscular Hemoglobin Concent 33, Red Cell Distribution Width 15.2H, Platelet Count 145, Mean Platelet Volume 9.6, Immature Granulocyte % (Auto) 2, Neutrophils (%) (Auto) 60, Lymphocytes (%) (Auto) 24, Monocytes (%) (Auto) 10, Eosinophils (%) (Auto) 4, Basophils (%) (Auto) 0, Neutrophils # (Auto) 3.9, Lymphocytes # (Auto) 1.6, Monocytes # (Auto) 0.6, Eosinophils # (Auto) 0.3, Basophils # (Auto) 0.0, Immature Granulocyte # (Auto) 0.1, Sodium Level 140, Potassium Level 4.3, Chloride Level 111H, Carbon Dioxide Level 20L, Anion Gap 9, Blood Urea Nitrogen 12, Creatinine 1.28, Estimat Glomerular Filtration Rate 44, BUN/Creatinine Ratio 9, Glucose Level 223H, Calcium Level 8.5, Corrected Calcium 9.1, Magnesium Level 1.8, Total Bilirubin 0.3, Aspartate Amino Transf (AST/SGOT) 17, Alanine Aminotransferase (ALT/SGPT) 13, Alkaline Phosphatase 46, Total Protein 5.7L, Albumin 3.3 11/01/22 10:58: Glucometer 245H Microbiology 10/29/22 MRSA Screen - Final, Complete MRSA not isolated 10/29/22 Blood Culture - Preliminary, Resulted No growth 10/29/22 Urine Culture - Final, Complete Escherichia coli Pending Labs Microbiology Date/Time Source Procedure Growth Status 10/29/22 19:45 Nasal MRSA Screen - Final MRSA not isolated Complete 10/29/22 17:50 Peripheral Rt Ac Blood Culture - Preliminary No growth Resulted 10/29/22 15:42 Urine Straight Cath, In/Out Urine Culture - Final Escherichia coli Complete 10/29/22 14:12 Peripheral Rt Ac Blood Culture - Preliminary No growth Resulted Laboratory Tests 10/29/22 14:05: White Blood Count 13.4, Red Blood Count 4.54, Hemoglobin 12.6, Hematocrit 39, Mean Corpuscular Volume 85, Mean Corpuscular Hemoglobin 28, Mean Corpuscular Hemoglobin Concent 33, Red Cell Distribution Width 15.5, Platelet Count 214, Mean Platelet Volume 10.4, Immature Granulocyte % (Auto) 2, Neutrophils (%) (Auto) 72, Lymphocytes (%) (Auto) 16, Monocytes (%) (Auto) 8, Eosinophils (%) (Auto) 2, Basophils (%) (Auto) 0, Neutrophils # (Auto) 9.7, Lymphocytes # (Auto) 2.2, Monocytes # (Auto) 1.1, Eosinophils # (Auto) 0.3, Basophils # (Auto) 0.1, Immature Granulocyte # (Auto) 0.2, Sodium Level 137, Potassium Level 4.6, Chloride Level 106, Carbon Dioxide Level 21, Anion Gap 10, Blood Urea Nitrogen 45, Creatinine 2.70, Estimat Glomerular Filtration Rate 18, BUN/Creatinine Ratio 17, Glucose Level 118, Calcium Level 9.6, Corrected Calcium 9.7, Total Bilirubin 0.3, Aspartate Amino Transf (AST/SGOT) 17, Alanine Aminotransferase (ALT/SGPT) 19, Alkaline Phosphatase 55, C-Reactive Protein High Sensitivity 0.92, Total Protein 6.7, Albumin 3.9 10/29/22 14:12: Lactic Acid Level 1.65 10/29/22 15:42: Urine Color YELLOW, Urine Clarity CLOUDY, Urine pH 5.5, Urine Specific Marion 1.020, Urine Protein 1+, Urine Glucose (UA) NEGATIVE, Urine Ketones NEGATIVE, Urine Nitrite NEGATIVE, Urine Bilirubin NEGATIVE, Urine Urobilinogen 0.2, Urine Leukocyte Esterase 3+, Urine RBC (Auto) 1+, Urine RBC 0-2, Urine WBC 50-100, Urine Squamous Epithelial Cells 0-2, Urine Crystals NONE, Urine Bacteria LARGE, Urine Casts NONE, Urine Mucus NEGATIVE, Urine Culture Indicated YES 10/29/22 17:50: Prothrombin Time 13.6, INR Comment 1.0, Activated Partial Thromboplast Time 33 10/30/22 03:16: White Blood Count 18.4, Red Blood Count 4.13, Hemoglobin 11.7, Hematocrit 35, Mean Corpuscular Volume 84, Mean Corpuscular Hemoglobin 28, Mean Corpuscular Hemoglobin Concent 34, Red Cell Distribution Width 15.5, Platelet Count 271, Mean Platelet Volume 10.0, Immature Granulocyte % (Auto) 2, Neutrophils (%) (Auto) 67, Lymphocytes (%) (Auto) 22, Monocytes (%) (Auto) 8, Eosinophils (%) (Auto) 2, Basophils (%) (Auto) 0, Neutrophils # (Auto) 12.3, Lymphocytes # (Auto) 4.1, Monocytes # (Auto) 1.4, Eosinophils # (Auto) 0.3, Basophils # (Auto) 0.1, Immature Granulocyte # (Auto) 0.3, Neutrophils % (Manual) 70, Lymphocytes % (Manual) 24, Monocytes % (Manual) 5, Eosinophils % (Manual) 1, Blood Morphology Comment NORMAL, Sodium Level 138, Potassium Level 4.3, Chloride Level 112, Carbon Dioxide Level 17, Anion Gap 9, Blood Urea Nitrogen 39, Creatinine 2.19, Estimat Glomerular Filtration Rate 23, BUN/Creatinine Ratio 18, Glucose Level 263, Calcium Level 8.3, Corrected Calcium 8.8, Phosphorus Level 4.4, Magnesium Level 1.8, Total Bilirubin 0.3, Aspartate Amino Transf (AST/SGOT) 19, Alanine Aminotransferase (ALT/SGPT) 21, Alkaline Phosphatase 56, Total Protein 5.7, Albumin 3.4 10/30/22 10:40: Glucometer 320 10/30/22 15:38: Glucometer 298 10/30/22 21:04: Glucometer 357 10/31/22 03:45: White Blood Count 6.3, Red Blood Count 3.52, Hemoglobin 9.8, Hematocrit 30, Mean Corpuscular Volume 85, Mean Corpuscular Hemoglobin 28, Mean Corpuscular Hemoglobin Concent 33, Red Cell Distribution Width 15.4, Platelet Count 144, Mean Platelet Volume 9.5, Immature Granulocyte % (Auto) 1, Neutrophils (%) (Auto) 53, Lymphocytes (%) (Auto) 30, Monocytes (%) (Auto) 11, Eosinophils (%) (Auto) 4, Basophils (%) (Auto) 1, Neutrophils # (Auto) 3.4, Lymphocytes # (Auto) 1.9, Monocytes # (Auto) 0.7, Eosinophils # (Auto) 0.3, Basophils # (Auto) 0.0, Immature Granulocyte # (Auto) 0.1, Sodium Level 143, Potassium Level 3.9, Chloride Level 116, Carbon Dioxide Level 18, Anion Gap 9, Blood Urea Nitrogen 20, Creatinine 1.37, Estimat Glomerular Filtration Rate 41, BUN/Creatinine Ratio 15, Glucose Level 137, Calcium Level 8.2, Corrected Calcium 8.8, Phosphorus Level 2.5, Magnesium Level 2.1, Total Bilirubin 0.3, Aspartate Amino Transf (AST/SGOT) 14, Alanine Aminotransferase (ALT/SGPT) 14, Alkaline Phosphatase 58, Total Protein 5.5, Albumin 3.2 10/31/22 05:34: Glucometer 129 10/31/22 10:33: Glucometer 252 10/31/22 15:15: Glucometer 166 10/31/22 20:09: Glucometer 179 11/01/22 05:56: Glucometer 203 11/01/22 06:25: White Blood Count 6.5, Red Blood Count 3.61, Hemoglobin 10.2, Hematocrit 31, Mean Corpuscular Volume 86, Mean Corpuscular Hemoglobin 28, Mean Corpuscular Hemoglobin Concent 33, Red Cell Distribution Width 15.2, Platelet Count 145, Mean Platelet Volume 9.6, Immature Granulocyte % (Auto) 2, Neutrophils (%) (Auto) 60, Lymphocytes (%) (Auto) 24, Monocytes (%) (Auto) 10, Eosinophils (%) (Auto) 4, Basophils (%) (Auto) 0, Neutrophils # (Auto) 3.9, Lymphocytes # (Auto) 1.6, Monocytes # (Auto) 0.6, Eosinophils # (Auto) 0.3, Basophils # (Auto) 0.0, Immature Granulocyte # (Auto) 0.1, Sodium Level 140, Potassium Level 4.3, Chloride Level 111, Carbon Dioxide Level 20, Anion Gap 9, Blood Urea Nitrogen 12, Creatinine 1.28, Estimat Glomerular Filtration Rate 44, BUN/Creatinine Ratio 9, Glucose Level 223, Calcium Level 8.5, Corrected Calcium 9.1, Magnesium Level 1.8, Total Bilirubin 0.3, Aspartate Amino Transf (AST/SGOT) 17, Alanine Aminotransferase (ALT/SGPT) 13, Alkaline Phosphatase 46, Total Protein 5.7, Albumin 3.3 11/01/22 10:58: Glucometer 245 Discharge Home Medications: Active Scripts Active Norvasc (Amlodipine Besylate) 5 Mg Tablet 5 Mg PO DAILY Cefdinir 300 Mg Capsule 300 Mg PO BID Amlodipine Besylate 5 Mg Tablet 5 Mg PO DAILY Metoprolol Tartrate 50 Mg Tablet 50 Mg PO BID Novolog Flexpen (Insulin Aspart) 100 Unit/Ml (3 Ml) Solution 30 Units SQ AC Touo Max Solostar (Insulin Glargine,Hum.rec.anlog) 300 Unit/Ml (3 Ml) Insuln.pen 50 Units SC Reported Pregabalin 150 Mg Capsule 150 Mg PO 0800,1399,1999 Tylenol Extra Strength (Acetaminophen) 500 Mg Tablet 1,000 Mg PO Q6H PRN Tramadol HCl 50 Mg Tablet 50 Mg PO Q6H PRN Guaifenesin Dm Syrup (Guaifenesin/Dextromethorphan) 100 Mg-10 Mg/5 Ml Syrup 10 Ml PO Q4H PRN Ventolin Hfa (Albuterol Sulfate) 90 Mcg Hfa.aer.ad 2 Puff INH Q6H PRN Albuterol Sulfate 2.5 Mg/0.5 Ml Vial.neb 2.5 Mg INH Q4H PRN Novolog Flexpen (Insulin Aspart) 100 Unit/Ml (3 Ml) Solution Units SQ AC CORRECTION SCALE: 200-250=13 UNITS 251-300=25 UNITS 301-350=38 UNITS 351-400=51 UNITS 401-450=64 UNITS 451-500=77 UNITS 501-550=90 UNITS Refresh Optive Advanced Drops (Carboxymethyl/Glycerin/Poly80) 0.5 %-1 %-0.5 % Drops 1 Drop OD QID Diclofenac Sodium 1 % Gel..gram. 4 Gm TP TID MDD 16GM APPLY TO LEFT KNEE Mucinex (Guaifenesin) 600 Mg Tab.er.12h 600 Mg PO BID Escitalopram Oxalate 20 Mg Tablet 20 Mg PO DAILY Glimepiride 4 Mg Tablet 4 Mg PO DAILY Imodium A-D (Loperamide HCl) 2 Mg Capsule 2-4 Mg PO Q3H PRN MDD 16MH GIVE 2 TABS TO EQUAL 4 MG AFTER 1ST LOOSE STOOL, THEN 1 TAB AFTER EVERY LOOSE STOOL Protonix (Pantoprazole Sodium) 20 Mg Tablet.dr 20 Mg PO DAILY Rosuvastatin Calcium 20 Mg Tablet 20 Mg PO DAILY Bumetanide 2 Mg Tablet 2 Mg PO DAILY Acetaminophen Extra Strength (Acetaminophen) 500 Mg Tablet 1,000 Mg PO BID Vitamin D3 (Cholecalciferol (Vitamin D3)) 125 Mcg Capsule 125 Mcg PO DAILY Meclizine HCl 25 Mg Tablet 25 Mg PO BID Ferrous Sulfate 325 Mg Tablet 325 Mg PO DAILY Cyanocobalamin Injection (Cyanocobalamin) 1,000 Mcg/Ml Inj 1,000 Mcg IM MONTHLY Aspirin 81 Mg Tab.chew 81 Mg PO DAILY Instructions to patient/family Please see electronic discharge instructions given to patient. GUADALUPE AUSTIN DO Nov 01, 2022 21:18
[2022-11-02] MEDS ORDERED: amLODIPine 5 MG (NORVASC) TAB PO SCH (09:00)
== END 2022-11-01 14:25 | DRG 871 ==
LOC: EDUNIT# 14:03 → ER 14:04 → ICU 19:33 → 4TH 10-31 14:30
PROVIDERS: ADMIT Internal Medicine; ATTEND Internal Medicine
PROC: 02HV33Z Insertion of Infusion Device into Superior Vena Cava, Percutaneous Approach (ICD-10-PCS; principal; 2022-10-29)
DX: A41.9 Sepsis, unspecified organism (principal); G93.41 Metabolic encephalopathy; J18.9 Pneumonia, unspecified organism; R65.21 Severe sepsis with septic shock; J96.01 Acute respiratory failure with hypoxia; J44.0 Chronic obstructive pulmonary disease with (acute) lower respiratory infection; N17.9 Acute kidney failure, unspecified; F03.90 Unspecified dementia, unspecified severity, without behavioral disturbance, psychotic disturbance, mood disturbance, and anxiety; Z79.82 Long term (current) use of aspirin; Z79.4 Long term (current) use of insulin; F17.210 Nicotine dependence, cigarettes, uncomplicated; Z66 Do not resuscitate; I25.10 Atherosclerotic heart disease of native coronary artery without angina pectoris; E11.22 Type 2 diabetes mellitus with diabetic chronic kidney disease; F41.9 Anxiety disorder, unspecified; G89.29 Other chronic pain; F32.A Depression, unspecified; K21.9 Gastro-esophageal reflux disease without esophagitis; N18.9 Chronic kidney disease, unspecified; E78.00 Pure hypercholesterolemia, unspecified; I12.9 Hypertensive chronic kidney disease with stage 1 through stage 4 chronic kidney disease, or unspecified chronic kidney disease; E11.40 Type 2 diabetes mellitus with diabetic neuropathy, unspecified; M81.0 Age-related osteoporosis without current pathological fracture; K58.9 Irritable bowel syndrome, unspecified
CPT/HCPCS: 36415; 51701; 51702; 71045; 80053; 81000; 82947; 83605; 83735; 84100; 85007; 85025; 85027; 85610; 85730; 86141; 87040; 87077; 87081; 87088; 87186; 94760

== ENCOUNTER 2023-03-13 15:01 | Inpatient (IN) | payer MEDICARE, MEDICAID ==
[~2023-03-13] VITALS: Ht 170 cm; Wt 88.2 kg
[~2023-03-13 15:01] MED LIST changes: +AMLO5TAB4 PO; -DICL100G13 TP; +DICL100G60 TP; -EZET10TA17 PO; +EZET10TA83 PO; -MECL-149 PO; +MECL-291 PO; +PREG150C47 PO; -PREG75CA75 PO; +PREG75CA76 PO
--- NOTE | 2023-03-13 15:18 | ED General ---
General Chief Complaint: Skin/Wound Problems Stated Complaint: ALTERED MENTAL STATUS Nursing Triage Note: PT TO RM 3 BY [facility] WITH CC OF LOWER EXTREMITY EDEMA, LT LEG WORSE THAN RT, WEEPING, AMS AND CONFUSION SINCE THIS MORNING, STARTED ON ABX Source of Information: Patient Exam Limitations: No Limitations History of Present Illness Date Seen by Provider: Mar 13, 2023 Time Seen by Provider: 15:18 Initial Comments Ms. Hyman is a 72-year-old woman who presents to the emergency room via EMS from [facility] in [place] with concerns about fever, AMS, LE edema and possible urinary tract infection. According to her medication filling record, she was started on Keflex yesterday. She has greater swelling and erythema on the left leg than the right. She is somnolent and confused. She is not able to carry on a conversation. She has dementia at baseline but staff reported that she is altered from baseline. She has had multiple visits to the ER and admissions in recent years for acute kidney injury and altered mental status. She is diabetic and was not hypoglycemic in the field per EMS. Dr. Petty is her primary care provider. She has COPD and has significant wheezing upon arrival. She is on oxygen at 3 L nasal cannula which she uses at the detention. She is febrile on presentation with a temperature of 39.5 C. Allergies and Home Medications Allergies Coded Allergies: Tetanus Vaccines and Toxoid (Unverified Allergy, Severe, 12/17/11) SWOLLEN HOT RED ARM ampicillin (Unverified Allergy, Unknown, 12/20/15) dulaglutide (Unverified Allergy, Unknown, 06/16/21) Patient Home Medication List Home Medication List Reviewed: Yes Acetaminophen (Acetaminophen Extra Strength) 500 Mg Tablet, 1,000 MG PO BID, (Reported) Entered as Reported by: NABEEL CHEEK on 06/21/21 1601 Acetaminophen (Tylenol Extra Strength) 500 Mg Tablet, 1,000 MG PO Q6H PRN for PAIN-MILD (1-4) OR TEMPATURE, (Reported) Entered as Reported by: PA PAUL on 10/24/22 0911 Albuterol Sulfate (Albuterol Sulfate) 2.5 Mg/0.5 Ml Vial.neb, 2.5 MG INH Q4H PRN for SHORTNESS OF BREATH, (Reported) Entered as Reported by: PA PAUL on 10/24/22 0911 Albuterol Sulfate (Ventolin Hfa) 90 Mcg Hfa.aer.ad, 2 PUFF INH Q6H PRN for SHORTNESS OF BREATH, (Reported) Entered as Reported by: PA PAUL on 10/24/22 0911 Amlodipine Besylate (Amlodipine Besylate) 5 Mg Tablet, 5 MG PO DAILY Prescribed by: NICOLASA CINTRON on 10/26/22 1147 Amlodipine Besylate (Norvasc) 5 Mg Tablet, 5 MG PO DAILY Prescribed by: GUADALUPE AUSTIN on 11/01/22 1134 Aspirin (Aspirin) 81 Mg Tab.chew, 81 MG PO DAILY, (Reported) Entered as Reported by: PA PAUL on 11/27/19 0847 Bumetanide (Bumetanide) 2 Mg Tablet, 2 MG PO DAILY, (Reported) Entered as Reported by: NABEEL CHEEK on 06/21/21 1601 Carboxymethyl/Glycerin/Poly80 (Refresh Optive Advanced Drops) 0.5 %-1 %-0.5 % Drops, 1 DROP OD QID, (Reported) Entered as Reported by: PA PAUL on 10/24/22 09 Cefdinir (Cefdinir) 300 Mg Capsule, 300 MG PO BID Prescribed by: GUADALUPE AUSTIN on 11/01/22 1117 Cholecalciferol (Vitamin D3) (Vitamin D3) 125 Mcg Capsule, 125 MCG PO DAILY, (Reported) Entered as Reported by: PA PAUL on 11/27/19 0852 Cyanocobalamin (Cyanocobalamin Injection) 1,000 Mcg/Ml Inj, 1,000 MCG IM MONTHLY, (Reported) Entered as Reported by: PA PAUL on 11/27/19 0847 Diclofenac Sodium (Diclofenac Sodium) 1 % Gel..gram., 4 GM TP TID, (Reported) Entered as Reported by: PA PAUL on 10/24/22 0911 Escitalopram Oxalate (Escitalopram Oxalate) 20 Mg Tablet, 20 MG PO DAILY, (Reported) Entered as Reported by: PA PAUL on 10/24/22 0911 Ferrous Sulfate (Ferrous Sulfate) 325 Mg Tablet, 325 MG PO DAILY, (Reported) Entered as Reported by: PA PAUL on 11/27/19 0847 Glimepiride (Glimepiride) 4 Mg Tablet, 4 MG PO DAILY, (Reported) Entered as Reported by: PA PAUL on 10/24/22 09 Guaifenesin (Mucinex) 600 Mg Tab.er.12h, 600 MG PO BID, (Reported) Entered as Reported by: PA PAUL on 10/24/22 09 Guaifenesin/Dextromethorphan (Guaifenesin Dm Syrup) 100 Mg-10 Mg/5 Ml Syrup, 10 ML PO Q4H PRN for COUGH, (Reported) Entered as Reported by: PA PAUL on 10/24/22 09 Insulin Aspart (Novolog Flexpen) 100 Unit/Ml (3 Ml) Solution, UNITS SQ AC, (Reported) Entered as Reported by: PA PAUL on 10/24/22910 Insulin Aspart (Novolog Flexpen) 100 Unit/Ml (3 Ml) Solution, 30 UNITS SQ AC Prescribed by: NICOLASA CINTRON on 10/26/22 114 Insulin Glargine,Hum.rec.anlog (Toujeo Max Solostar) 300 Unit/Ml (3 Ml) Insuln.pen, 50 UNITS SC 0800,1999 Prescribed by: NICOLASA CINTRON on 10/26/22 1147 Loperamide HCl (Imodium A-D) 2 Mg Capsule, 2-4 MG PO Q3H PRN for DIARRHEA, (Reported) Entered as Reported by: NABEEL CHEEK on 06/21/21 160 Meclizine HCl (Meclizine HCl) 25 Mg Tablet, 25 MG PO BID, (Reported) Entered as Reported by: PA PAUL on 11/27/19 0847 Metoprolol Tartrate (Metoprolol Tartrate) 50 Mg Tablet, 50 MG PO BID Prescribed by: NICOLASA CINTRON on 10/26/22 114 Pantoprazole Sodium (Protonix) 20 Mg Tablet.dr, 20 MG PO DAILY, (Reported) Entered as Reported by: NABEEL CHEEK on 06/21/21 160 Pregabalin (Pregabalin) 150 Mg Capsule, 150 MG PO 0800,1400,2000, (Reported) Entered as Reported by: PA PAUL on 10/30/22 1016 Rosuvastatin Calcium (Rosuvastatin Calcium) 20 Mg Tablet, 20 MG PO DAILY, (Reported) Entered as Reported by: NABEEL CHEEK on 06/21/21 1601 Tramadol HCl (Tramadol HCl) 50 Mg Tablet, 50 MG PO Q6H PRN for PAIN-MODERATE (5- 7), (Reported) Entered as Reported by: PA PAUL on 10/24/22 0911 Review of Systems Review of Systems Constitutional: see HPI EENTM: no symptoms reported Respiratory: see HPI Cardiovascular: no symptoms reported Gastrointestinal: no symptoms reported Genitourinary: see HPI Musculoskeletal: no symptoms reported Skin: no symptoms reported Psychiatric/Neurological: See HPI Hematologic/Lymphatic: No Symptoms Reported Immunological/Allergic: no symptoms reported Past Qtxoluo-Ukealo-Vlcjjb Hx Patient Social History Tobacco Use?: No Substance use?: No Alcohol Use?: No Immunizations Up To Date Tetanus Booster (TDap): Unknown PED Vaccines UTD: No Seasonal Allergies Seasonal Allergies: No Past Medical History Surgery/Hospitalization HX: pmh: anemia, cad, chronic kidney disease, depression, htn, ibs, gen muscle weakness, dm2, anxiety, chronic pain, dementia, edema, gerd, high cholesterol, peripheral vas disease Surgeries: Yes (PT CANNOT RECALL) Hysterectomy, Vascular Surgery Respiratory: Yes COPD (Uses supplemental O2 via NC) Currently Using CPAP: No Currently Using BIPAP: No Cardiac: Yes Coronary Artery Disease, High Cholesterol, Hypertension, Peripheral Vascular Neurological: Yes Dementia, Neuropathy 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 Disorders: 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 Genitourinary: Yes Renal Failure (CKD), UTI-Chronic Gastrointestinal: Yes Gastroesophageal Reflux Musculoskeletal: Yes (NONDISPLACED TRANSVERSE FX OF RIGHT FIBULAR SHAFT 04/11/19) Degenerate Disk Disease, Osteoporosis Endocrine: Yes Diabetes, Insulin dep HEENT: No (dysarthria anarthria) Cataract Loss of Vision: Denies Cancer: No Psychosocial: Yes (DELUSIONAL DISORDER) Anxiety Integumentary: No Blood Disorders: No Family Medical History Arthritis G8 SISTER G8 SISTER Cataracts 19 MOTHER Diabetes mellitus G8 SISTER FH: COPD (chronic obstructive pulmonary disease) 19 MOTHER FH: CVA (cerebrovascular accident) 19 FATHER FH: heart attack 19 FATHER Glaucoma 19 MOTHER Hypercholesterolemia 19 FATHER Hypertension 19 FATHER No Pertinent Family Hx Physical Exam-Suspected Sepsis Physical Exam Vital Signs Vital Signs - First Documented 03/13/23 15:02 Temp 39.5 Pulse 86 Resp 22 B/P (MAP) 168/56 (93) Pulse Ox 98 O2 Delivery Nasal Cannula O2 Flow Rate 2.00 Capillary Refill : Blood Pressure Mean: 93 Height, Weight, BMI Height: 5'5.00" Weight: 164lbs. 6.4oz. [id number]; 32.00 BMI Method:Stated General Appearance: WD/WN, Moderate Distress (Respiratory wheezing and increased WOB), Obese HEENT: PERRL/EOMI, Normal ENT Inspection Neck: Normal Inspection; No JVD Respiratory: Crackles (Faint in right base), Wheezing (tight throughout), Other (increases WOB) Cardiovascular: Regular Rate, Rhythm, Other (Edema of the legs bilaterally, left greater than right. ) Gastrointestinal: Non Tender, Soft Extremity: Other (Bilateral lower extremity edema with chronic skin changes. Erythema bilaterally is greater on the left than the right. Degree of swelling is greater on the left than the right.) Neurologic/Psychiatric: Other (Responsive to voice. Responses do not necessarily make sense. She is not conversational.) Skin: normal color, warm/dry, other (Skin changes on the extremities as noted a [place]) Focused Exam Sepsis Stage: Sepsis Possible Source: Genitouriary Lactate Level 03/13/23 15:08: Lactic Acid Level 1.67 Time of Focused Exam: 17:50 Respiratory: No Crackles; Wheezing (Slight wheezing with significant improvement), Other (On BiPAP) Cardiovascular: Regular Rate, Rhythm, No Edema, No Murmur Skin: warm/dry, other (Bright erythema of the lower extremities between the knee and ankle, left greater than right) Lactic Acid Level Laboratory Tests Test 03/13/23 15:08 Lactic Acid Level 1.67 MMOL/L (0.50-2.00) Within 3hrs of presentation: Admin fluids, Admin ABX, Blood cultures prior to ABX's, Focus exam, Lactate level Progress/Results/Core Measures Suspected Sepsis SIRS Temperature: Pulse: 86 Respiratory Rate: 22 Laboratory Tests 03/13/23 15:08: White Blood Count 18.8H Blood Pressure 168 /56 Mean: 93 03/13/23 15:08: Lactic Acid Level 1.67 Laboratory Tests 03/13/23 15:08: Creatinine 2.10H, INR Comment 1.1, Platelet Count 164, Total Bilirubin 0.5 Results/Orders Lab Results Laboratory Tests Test 03/13/23 15:08 03/13/23 15:26 03/13/23 15:56 03/13/23 16:13 Range/Units White Blood Count 18.8 H 4.3-11.0 10^3/uL Red Blood Count 5.39 H 3.80-5.11 10^6/uL Hemoglobin 14.6 11.5-16.0 g/dL Hematocrit 46 35-52 % Mean Corpuscular Volume 85 80-99 fL Mean Corpuscular Hemoglobin 27 25-34 pg Mean Corpuscular Hemoglobin Concent 32 32-36 g/dL Red Cell Distribution Width 16.7 H 10.0-14.5 % Platelet Count 164 130-400 10^3/uL Mean Platelet Volume 10.3 9.0-12.2 fL Immature Granulocyte % (Auto) 1 % Neutrophils (%) (Auto) 84 H 42-75 % Lymphocytes (%) (Auto) 8 L 12-44 % Monocytes (%) (Auto) 5 0-12 % Eosinophils (%) (Auto) 2 0-10 % Basophils (%) (Auto) 0 0-10 % Neutrophils # (Auto) 15.8 H 1.8-7.8 10^3/uL Lymphocytes # (Auto) 1.5 1.0-4.0 10^3/uL Monocytes # (Auto) 0.9 0.0-1.0 10^3/uL Eosinophils # (Auto) 0.3 0.0-0.3 10^3/uL Basophils # (Auto) 0.0 0.0-0.1 10^3/uL Immature Granulocyte # (Auto) 0.2 H 0.0-0.1 10^3/uL Neutrophils % (Manual) 83 % Lymphocytes % (Manual) 12 % Monocytes % (Manual) 5 % Anisocytosis SLIGHT Prothrombin Time 15.1 H 12.2-14.7 SEC INR Comment 1.1 0.8-1.4 Activated Partial Thromboplast Time 35 24-35 SEC Sodium Level 140 135-145 MMOL/L Potassium Level 4.3 3.6-5.0 MMOL/L Chloride Level 103 98-107 MMOL/L Carbon Dioxide Level 28 21-32 MMOL/L Anion Gap 9 5-14 MMOL/L Blood Urea Nitrogen 34 H 7-18 MG/DL Creatinine 2.10 H 0.60-1.30 MG/DL Estimat Glomerular Filtration Rate 24 BUN/Creatinine Ratio 16 Glucose Level 127 H 70-105 MG/DL Lactic Acid Level 1.67 0.50-2.00 MMOL/L Calcium Level 9.6 8.5-10.1 MG/DL Corrected Calcium 9.4 8.5-10.1 MG/DL Total Bilirubin 0.5 0.1-1.0 MG/DL Aspartate Amino Transf (AST/SGOT) 11 5-34 U/L Alanine Aminotransferase (ALT/SGPT) 9 0-55 U/L Alkaline Phosphatase 60 40-136 U/L C-Reactive Protein High Sensitivity 12.86 H 0.00-0.50 MG/DL B-Type Natriuretic Peptide 145.4 H <100.0 PG/ML Total Protein 8.0 6.4-8.2 GM/DL Albumin 4.3 3.2-4.5 GM/DL Influenza Type A (RT-PCR) Not Detected Not Detecte Influenza Type B (RT-PCR) Not Detected Not Detecte SARS-CoV-2 RNA (RT-PCR) Not Detected Not Detecte Urine Color YELLOW Urine Clarity CLEAR Urine pH 5.0 5-9 Urine Specific [place] 1.010 L 1.016-1.022 Urine Protein 1+ H NEGATIVE Urine Glucose (UA) 3+ H NEGATIVE Urine Ketones NEGATIVE NEGATIVE Urine Nitrite NEGATIVE NEGATIVE Urine Bilirubin NEGATIVE NEGATIVE Urine Urobilinogen 0.2 < = 1.0 MG/DL Urine Leukocyte Esterase NEGATIVE NEGATIVE Urine RBC (Auto) TRACE H NEGATIVE Urine RBC 2-5 H /HPF Urine WBC 5-10 H /HPF Urine Squamous Epithelial Cells 2-5 /HPF Urine Crystals NONE /LPF Urine Bacteria FEW H /HPF Urine Casts NONE /LPF Urine Mucus NEGATIVE /LPF Urine Culture Indicated YES Arterial Blood pH 7.44 H 7.37-7.43 Arterial Blood Partial Pressure CO2 40 35-45 MMHG Arterial Blood Partial Pressure O2 80 79-93 MMHG Arterial Blood HCO3 27 23-27 MMOL/L Arterial Blood Total CO2 28.4 21.0-31.0 MMOL/L Arterial Blood Oxygen Saturation 98 94-100 % Arterial Blood Base Excess 2.8 H -2.5-2.5 MMOL/L Blood Gas Ventilator Setting NO Blood Gas Inspired Oxygen 2L My Orders Orders - SHARAD ARRIAGA MD Ed Iv/Invasive Line Start (03/13/23 15:19) Cbc And Automated Diff (03/13/23 15:19) Comprehensive Metabolic Panel (03/13/23 15:19) Hs C Reactive Protein (03/13/23 15:19) Ua Culture If Indicated (03/13/23 15:19) Covid 19 Inhouse Test (03/13/23 15:19) Influenza A And B By Pcr (03/13/23 15:19) Blood Culture (03/13/23 15:27) Sputum Culture (03/13/23:) Protime With Inr (03/13/23 15:) Partial Thromboplastin Time (03/13/23 15:27) Chest 1 View, Ap/Pa Only (03/13/23 15:) Vital Signs Adult Sepsis Patie Q15M (03/13/23 15:27) O2 (03/13/23 15:27) Remove Rings In Anticipation O (03/13/23 15:) Lactic Acid Analyzer (03/13/23 15:27) Slater Cath (03/13/23 15:27) Ipratropium/Albuterol Inh Soln (Ipratrop (03/13/23 15:30) Svn Small Volume Nebulizer (03/13/23 15:27) Arterial Blood Gas (03/13/23 15:27) Bnp [place] (03/13/23 15:30) Manual Differential (03/13/23 15:08) Acetaminophen Suppository (Acetaminophen (03/13/23 16:00) Acetaminophen Suppository (Acetaminophen (03/13/23 15:51) Cefepime Injection (Cefepime Injection) (03/13/23 16:00) Ns Iv 500 Ml (Ns Iv 500 Ml) (03/13/23 16:15) Bipap (Bilevel) Set Up (03/13/23 16:18) Albuterol Pre-Mix Nebs (Rt) (Albuterol (03/13/23 16:18) Ipratropium/Albuterol Inh Soln (Ipratrop (03/13/23 16:30) Svn Small Volume Nebulizer (03/13/23 16:18) Svn Small Volume Nebulizer (03/13/23 16:18) Urine Culture (03/13/23 15:56) Ct Head Wo (03/13/23 16:49) Fibrin Degradation Products (03/13/23 18:03) Medications Given in ED Current Medications Medications Dose Ordered Sig/Akash Route Start Time Stop Time Status Last Admin Dose Admin Acetaminophen 650 mg ONCE ONCE GA 03/13/23 16:00 03/13/23 16:01 DC 03/13/23 15:53 650 MG Albuterol/ Ipratropium 3 ml ONCE ONCE INH 03/13/23 15:30 03/13/23 15:31 DC 03/13/23 16:18 3 ML Cefepime HCl 2000 mg/Sodium Chloride 50 ml @ 100 mls/hr ONCE ONCE IV 03/13/23 16:00 03/13/23 16:29 DC 03/13/23 16:42 100 MLS/HR Sodium Chloride 500 ml @ 0 mls/hr Q0M ONCE IV 03/13/23 16:15 03/13/23 16:16 DC 03/13/23 16:42 1,000 MLS/HR Vital Signs/I&O 03/13/23 03/13/23 03/13/23 03/13/23 15:02 15:10 15:53 15:53 Temp 39.5 39.5 38.3 Pulse 86 Resp 22 B/P (MAP) 168/56 (93) Pulse Ox 98 98 O2 Delivery Nasal Cannula Nasal Cannula O2 Flow Rate 2.00 2.00 03/13/23 03/13/23 03/13/23 16:19 16:19 16:40 Temp 38.3 Pulse 96 97 Resp 22 40 B/P (MAP) 114/61 (78) Pulse Ox 99 100 100 O2 Delivery Nasal Cannula OxyMask O2 Flow Rate 2.00 2.00 45.00 Capillary Refill : Blood Pressure Mean: 93 Progress Note #1: Time: 16:05 Progress Note Report was received from nursing staff and labs ordered accordingly. She was interviewed and examined at 1520. She was unable to contribute much to her own history. She had a very tight wheezing on exam and is receiving a DuoNeb treatment. Altered mental status is being evaluated with ABG and septic workup. Chest x-ray was viewed and interpreted by me. The cardiomegaly mentioned in the report was also appreciated on my interpretation. I do not appreciate any focal consolidations or infiltrates to suggest pneumonia. Labs were reviewed and interpreted by me. CBC was remarkable for leukocytosis with WBC of 18.8. CBC was otherwise unremarkable. Coagulation panel was normal. CMP was notable for creatinine of 2.10 which is above baseline. Glucose was mildly elevated at 129. Lactic acid was normal at 1.67. CRP was elevated at 12.86. BMP was not significantly elevated at 145. Careful hydration is being started with a 500 mL normal saline bolus. Empiric antibiotic therapy is being started with cefepime. Patient has an ampicillin allergy of unknown type. Progress Note #2: Time: 16:19 Progress Note Respiratory therapist reports no significant improvement in respiratory status after DuoNeb treatment. We will now initiate BiPAP therapy with an hour-long nebulizer treatment. Patient has a DNR order from her detention paperwork. Progress Note #3: Time: 18:46 Progress Note Evidence of urinary tract infection was identified on urinalysis with 5-10 WBC and few bacteria. CT of the head was obtained to rule out any intracranial pathology contributing to her altered mental status. CT report was reviewed as below and revealed no additional pathology to explain her altered mental status. I suspect her altered mental status is primarily due to fever. I reevaluated patient and found her to have much improved aeration on BiPAP. She still seemed rather confused and did not respond in meaningful ways to my questions. She was responsive to voice. I discussed the case with Dr. Austin, admitting hospitalist. She is placing admission orders. She will empirically cover for DVT/PE until imaging studies can be acquired. Patient cannot have CT angiogram of the chest due to her renal function. Ultrasound could be obtained to the left lower extremity as well when oil furnace installer is available. D-dimer was mildly elevated at 0.97. Patient is being admitted to the ICU. Report will being given to eICU provider. Diagnostic Imaging Diagonstic Imaging: Xray Plain Films/CT/US/NM/MRI: chest Comments NAME: [facility]LY [facility] REC#: [id number] PT STATUS: REG ER : 1950 PHYSICIAN: SHARAD ARRIAGA MD ADMIT DATE: 03/13/23/ER Signed Date of Exam:03/13/23 CHEST 1 VIEW, AP/PA ONLY INDICATION: Fever, SOA. COMPARISON: Chest radiograph 10/29/2022. FINDINGS: Lungs: Low lung volume. No focal consolidation. Stable pulmonary vasculature. Pleura: No pleural effusion or pneumothorax. Heart and Mediastinum: Cardiomegaly. Great vessels of the thorax are stable. Osseous Structures and Soft Tissues: No acute osseous abnormality. Normal soft tissues. IMPRESSION: Cardiomegaly. No focal consolidation or alexus pulmonary edema. Dictated by: Dictated on workstation # [id number] Dict: 03/13/23 1542 Trans: 03/13/23 154 [facility] [id number] Interpreted by: STACEY HA DO Electronically signed by: STACEY HA DO 03/13/23 154 Diagonstic Imaging: CT Plain Films/CT/US/NM/MRI: head Comments NAME: KIMBERLY HYMAN [facility] REC#: [id number] PT STATUS: REG ER : 1950 PHYSICIAN: SHARAD ARRIAGA MD ADMIT DATE: 03/13/23/ER Draft Date of Exam:03/13/23 CT HEAD WO Clinical Indication: Patient with lower extremity edema, left side worse than right, with weeping. Patient is altered mental status and confusion. Exam: Axial CT scan of the brain without IV contrast with coronal and sagittal reformatted images. Auto Exposure Controls were utilized during the CT exam to meet ALARA standards for radiation dose reduction. Comparison: MRI of the brain without contrast dated 10/24/2022. Findings: There is no evidence of acute cerebral infarct, intracranial hemorrhage or gross mass effect. There is [id number] diffuse brain parenchymal volume loss. There is mild chronic small vessel ischemic disease. There is normal hall-white matter distinction. There is no significant midline shift or herniation. There is no evidence of hydrocephalus. The basal cisterns are unremarkable. The skull, extracranial soft tissue and orbits are unremarkable. The paranasal sinuses are unremarkable. Temporal bones show no significant abnormality. Impression: Age-related brain parenchymal changes with no evidence of acute intracranial process. Dictated on workstation # [id number] Dict: 03/13/23 1713 Trans: 03/13/23 1720 [facility] [id number] Interpreted by: BERONICA GONZALEZ MD Departure Communication (Admissions) Time/Spoke to Admitting Phy: 18:04 Dr. Austin Time/Spoke to Consulting Phy: 19:00 eICU provider Impression Primary Impression: Sepsis Qualified Codes: A41.9 - Sepsis, unspecified organism Additional Impressions: Urinary tract infection Qualified Codes: N39.0 - Urinary tract infection, site not specified COPD exacerbation Altered mental status Qualified Codes: R41.82 - Altered mental status, unspecified Cellulitis of left leg Disposition: ADMITTED INPATIENT Condition: Stable Admissions Decision to Admit Reason: Admit from ER (General) Decision to Admit/Date: Mar 13, 2023 Time/Decision to Admit Time: 18:04 Departure-Patient Inst. Referrals: [facility]DAISY (PCP/Family) Primary Care Physician Copy Copies To 1: [facility]/SHARAD FUENTES MD Mar 13, 2023 15:18
[2023-03-13 15:29] LABS: BASOPHILS % (AUTO) 0 % (0-10); EOSINOPHILS # (AUTO) 0.3 10^3/uL (0.0-0.3); EOSINOPHILS % (AUTO) 2 % (0-10); HEMATOCRIT 46 % (35-52); HEMOGLOBIN 14.6 g/dL (11.5-16.0); LYMPHOCYTES # (AUTO) 1.5 10^3/uL (1.0-4.0); LYMPHOCYTES % (AUTO) 8 % (12-44); MEAN CORPUSCULAR HEMOGLOBIN 27 pg (25-34); MEAN CORPUSCULAR HGB CONC 32 g/dL (32-36); MEAN CORPUSCULAR VOLUME 85 fL (80-99); MEAN PLATELET VOLUME 10.3 fL (9.0-12.2); MONOCYTES # (AUTO) 0.9 10^3/uL (0.0-1.0); MONOCYTES % (AUTO) 5 % (0-12); NEUTROPHILS # (AUTO) 15.8 10^3/uL (1.8-7.8); NEUTROPHILS % (AUTO) 84 % (42-75); PLATELET COUNT 164 10^3/uL (130-400); WHITE BLOOD COUNT 18.8 10^3/uL (4.3-11.0)
[2023-03-13 15:30] LABS: ALBUMIN 4.3 GM/DL (3.2-4.5); POTASSIUM 4.3 MMOL/L (3.6-5.0)
[2023-03-13] MEDS ORDERED: RT-Ipratropium/Albuterol NEB 3 ML VIAL INH ONE ×2 (15:30→16:30)
[2023-03-13 15:31] LABS: CALCIUM 9.6 MG/DL (8.5-10.1)
[2023-03-13 15:34] LABS: BILIRUBIN,TOTAL 0.5 MG/DL (0.1-1.0)
[2023-03-13 15:36] LABS: CREATININE SERUM 2.1 MG/DL (0.60-1.30)
[2023-03-13 15:41] LABS: INR 1.1 (0.8-1.4); PROTHROMBIN TIME PATIENT 15.1 SEC (12.2-14.7)
--- NOTE | 2023-03-13 15:44 | Diagnostic Imaging Report ---
CHEST 1 VIEW, AP/PA ONLY INDICATION: Fever, SOA. COMPARISON: Chest radiograph 10/29/2022. FINDINGS: Lungs: Low lung volume. No focal consolidation. Stable pulmonary vasculature. Pleura: No pleural effusion or pneumothorax. Heart and Mediastinum: Cardiomegaly. Great vessels of the thorax are stable. Osseous Structures and Soft Tissues: No acute osseous abnormality. Normal soft tissues. IMPRESSION: Cardiomegaly. No focal consolidation or alexus pulmonary edema. Dictated by: Dictated on workstation # [id number]
[2023-03-13] MEDS ORDERED: ACETAMINOPHEN 650 MG SUPPOSITORY ONE (15:51)
[2023-03-13 15:53] LABS: ANISOCYTOSIS SLIGHT; LYMPHOCYTES % (MANUAL) 12 %; MONOCYTES % (MANUAL) 5 %; NEUTROPHILS % (MANUAL) 83 %
[2023-03-13] MEDS ORDERED: ACETAMINOPHEN 650 MG SUPPOSITORY PR ONE (16:00)
[2023-03-13] MEDS ORDERED: CEFEPIME INJECTION 2,000 MG in NS (IVPB) 50 ML 50 ML IV ONE (16:00)
[2023-03-13] MEDS ORDERED: NS IV 500 ML 500 ML IV ONE (16:15)
[2023-03-13] MEDS ORDERED: RT-ALBUTEROL SULF 2.5 MG/3 ML PRE-MIX VIAL INH STA (16:18)
[2023-03-13 16:23] LABS: ABG BASE EXCESS 2.8 MMOL/L (-2.5-2.5); ABG OXYGEN SATURATION 98 % (94-100); ABG PCO2 40 MMHG (35-45); ABG PH 7.44 (7.37-7.43); ABG PO2 80 MMHG (79-93); ABG TCO2 28.4 MMOL/L (21.0-31.0)
[2023-03-13 16:24] LABS: INSPIRED O2 2L; VENTILATOR NO
[2023-03-13 16:36] LABS: BACTERIA,URINE FEW /HPF; BILIRUBIN,URINE NEGATIVE (NEGATIVE); CLARITY,URINE CLEAR; COLOR,URINE YELLOW; GLUCOSE, URINE (UA) 3+ (NEGATIVE); KETONES,URINE NEGATIVE (NEGATIVE); LEUKOCYTE ESTERASE ,URINE NEGATIVE (NEGATIVE); NITRITE,URINE NEGATIVE (NEGATIVE); PROTEIN,URINE 1+ (NEGATIVE)
--- NOTE | 2023-03-13 17:20 | Diagnostic Imaging Report ---
Clinical Indication: Patient with lower extremity edema, left side worse than right, with weeping. Patient is altered mental status and confusion. Exam: Axial CT scan of the brain without IV contrast with coronal and sagittal reformatted images. Auto Exposure Controls were utilized during the CT exam to meet ALARA standards for radiation dose reduction. Comparison: MRI of the brain without contrast dated 10/24/2022. Findings: There is no evidence of acute cerebral infarct, intracranial hemorrhage or gross mass effect. There is [id number]-[id number] diffuse brain parenchymal volume loss. There is mild chronic small vessel ischemic disease. There is normal hall-white matter distinction. There is no significant midline shift or herniation. There is no evidence of hydrocephalus. The basal cisterns are unremarkable. The skull, extracranial soft tissue and orbits are unremarkable. The paranasal sinuses are unremarkable. Temporal bones show no significant abnormality. Impression: Age-related brain parenchymal changes with no evidence of acute intracranial process. Dictated by: Dictated on workstation # [id number]
[2023-03-13] MEDS ORDERED: methylPREDNISolone INJ 125 MG VIAL IVP ONE (18:15)
[2023-03-13] MEDS ORDERED: MELATONIN 3 MG TABLET PO PRN (18:45)
[2023-03-13] MEDS ORDERED: HALOPERIDOL INJECTION 5 MG/ML VIAL IM PRN (18:45)
[2023-03-13] MEDS ORDERED: ONDANSETRON 4 MG ORAL DISSOLVE TABLET PO PRN (18:45)
[2023-03-13] MEDS ORDERED: NS IV 1000 ML 1,000 ML IV SCH ×4 (18:45→23:30)
[2023-03-13] MEDS ORDERED: BISACODYL 10 MG SUPPOSITORY PR PRN (18:45)
[2023-03-13] MEDS ORDERED: NS IV 500 ML 500 ML IV PRN (18:45)
[2023-03-13] MEDS ORDERED: diphenhydrAMINE 25 MG TABLET PO PRN (18:45)
[2023-03-13] MEDS ORDERED: ANTACID SUSPENSION 30 ML UDC PO PRN (18:45)
[2023-03-13] MEDS ORDERED: MILK OF MAGNESIA 400 MG/5 ML 30 ML UDC PO PRN (18:45)
[2023-03-13] MEDS ORDERED: ONDANSETRON INJECTION 4 MG/2 ML (SDV) IV PRN (18:45)
[2023-03-13] MEDS ORDERED: DexMEDEtomidine 1,000mcg/250ml 250 ML IV SCH (18:45)
[2023-03-13] MEDS ORDERED: CALCIUM CARBONATE 500 MG CHEW TABLET PO PRN (18:45)
[2023-03-13] MEDS ORDERED: oxyCODONE IMMEDIATE RELEASE 5 MG TABLET PO PRN (18:45)
[2023-03-13] MEDS ORDERED: LACTULOSE SYRUP 10GM/15ML 30ML UDC PO PRN (18:45)
[2023-03-13] MEDS ORDERED: HYDROmorphone INJECTION 2 MG/ML VIAL IV PRN (18:45)
[2023-03-13] MEDS ORDERED: diphenhydrAMINE INJ 50 MG/ML VIAL IVP PRN (18:45)
[2023-03-13] MEDS ORDERED: ACETAMINOPHEN 325 MG TABLET PO PRN (18:45)
[2023-03-13] MEDS ORDERED: ENOXAPARIN 100 MG/1 ML SYRINGE SC SCH (19:00)
[2023-03-13] MEDS ORDERED: CEFEPIME 1,000 MG/NS 50 ML IVPB IV SCH ×2 (19:00)
[2023-03-13] MEDS ORDERED: CEFEPIME INJECTION 2,000 MG in NS (IVPB) 50 ML 50 ML IV SCH (21:00)
[2023-03-13] MEDS: SENNOSIDES 8.6 MG TABLET PO SCH (21:00)
[2023-03-13] MEDS: DOCUSATE SODIUM 100 MG CAPSULE PO SCH (21:00)
[2023-03-13] MEDS ORDERED: NS IV 1000 ML 1,000 ML ONE ×2 (21:20→23:21)
[2023-03-13] MEDS: inSUlin ASPART 1 UNIT/0.01 ML (PER UNIT) SC SCH (21:22)
[2023-03-13] MEDS: dexAMETHasone INJ 4 MG/ML SDV IV SCH (21:23)
[2023-03-13] MEDS ORDERED: RT-ALBUTEROL SULF 2.5 MG/3 ML PRE-MIX VIAL ONE (21:59)
[2023-03-13] MEDS ORDERED: RT-ALBUTEROL SULF 2.5 MG/3 ML PRE-MIX VIAL INH PRN (22:00)
[2023-03-13] MEDS: RT-ALBUTEROL SULF 2.5 MG/3 ML PRE-MIX VIAL INH SCH (22:17)
--- NOTE | 2023-03-13 22:23 | Tele-ICU Progress Note ---
Progress Note Tele ICU 72 yo woman admitted to ED from [place] with C/C Altered mental status, identified yesterday as possible infection and was started on Keflex. Presented tp ED with fever 39.5. BP recorded at 168/56 The ED has identified 3 sources of infection: urinary tract, leg cellulitis of lower extremity and possible pulmonary source. Due to wheezing, increased work of breathing- she was given nebulizer Rx and started on BiPAP- Cultures obtained and received 500 mls bolus NS. Cefepime started in ED. Lovenox full dose started in ED due to swelling in leg with erythema and unable to obtain an US tonight. 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 Labs: LA 1.67 CBC wbcs 18,800 Hgb 14.6 Plts 164,000 Na 140 K 4.3 Cl 103 Bicarb 28 BUN 34 Cr 2.1 BNP 145 CRP 12.86 DDimer 0.97 UA UA rbcs 2-5 wbcs 5-10 COVID, FLU A, B- neg CXR- poor inspiration, CMG, no acute infiltrates CT Head: Impression: Age- related brain parenchymal changes with no evidence of acute intracranial process. Per video- Pt's BP has decreased since admission to ED current 89/60 sats 98% HR 94 BiPAP 16/6 rate 12 FiO2 45% A/P: Cellulitis of leg, possible DVT, exacerbation of COPD, poss UTI-- Has orders written per hospitalist for treatment of sepsis and exacerbation of COPD, poss DVT of leg. Full sepsis workup done in ED however BP has dropped since admission. Will bolus 1 liter NS now and increase maintenance IVF to 100 mls/hr- D/W nursing- to monitor BP response to bolus . Will add ABGs to AM labs, further intervention if BP is not responsive to current Rx. Focused Exam Lactate Level 03/13/23 15:08: Lactic Acid Level 1.67 Height, Weight, BMI Height: 5'5.00" Weight: 164lbs. 6.4oz. 74.265424wg; 32.00 BMI Method:Stated Time of Focused Exam: 17:50 O'PRATIBHA SMITH DO Mar 13, 2023 22:23
--- OUTSIDE RECORDS SUMMARY | 2023-03-14 00:04 | XMS REPORT ---
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9 confirmed 292564872 Problem Stasis dermatitis of both legs I87.2 confirmed 45964964 Problem Other chronic pain G89.29 confirmed 88472526 Problem Irritable bowel syndrome with diarrhea K58.0 confirmed 086586938 Problem COPD exacerbation J44.1 confirmed 240222300 Problem Hypertriglyce ridemia E78.1 confirmed 759964158 Problem CKD (chronic kidney disease) stage 4, GFR 15-29 ml/min N18.4 confirmed 049460587 Problem Chronic kidney disease, unspecified CKD stage N18.9 confirmed 490420169 Problem Stage 3 chronic kidney disease, unspecified whether stage 3a or 3b CKD N18.30 confirmed 414541747 Problem Anemia of chronic disease D63.8 confirmed 853663075 Problem Type 2 diabetes mellitus with hyperglycemia E11.65 confirmed 17131564 Problem Episode of recurrent major depressive disorder, unspecified depression episode severity F33.9 confirmed 661754205 Problem Type 2 diabetes mellitus with diabetic neuropathy, unspecified E11.40 confirmed 25090728 19 107 Problem Personality disorder in adult F60.9 confirmed 81942581 Problem Neuropathy G62.9 confirmed 627657482 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 Z79.4 confirmed 086125225 Problem Poor memory R41.3 confirmed 43519589 6 Problem Moderate episode of recurrent major depressive disorder F33.1 confirmed 782899083 Problem PAD (peripheral artery disease) I73.9 confirmed 665759851 Problem Slow transit constipation K59.01 confirmed 94344778 ALLERGIES Allergen (clinical drug ingredient) Drug/Non Drug Allergy documented on EMR Reaction Allergy Type Onset Date Status simvastatin Zocor(NDC Code:[address]-23) muscle pain Drug Allergy Active ampicillin Ampicillin(NDC Code:[address]-53) nausea and vomiting Drug Allergy Active Amoxicillin ER hives Drug Allergy Ac tive lisinopril Lisinopril(NDC Code:[address]-48) Unknown Drug Allergy Active Tetanus Toxoid Adsorbed /swelling Drug Allergy Active ENCOUNTERS from 1950 to 2022-10-12 Encounter Location Date Provider Diagnosis [facility] [address] [facility] [id number] [place] [address] 15 Oct, 2020 RAKESH RUSH IMMUNIZATIONS Vaccine Route Administration Date Status influenza iiv4 mdck (history) Unknown Feb 18 8 Administered COVID-19 Moderna (history) Unknown August 09, 2021 Administered COVID-19 Pfizer (history) Unknown May 18, 2020 Ad ministered COVID-19 Pfizer (history) Unknown Apr 28, 2020 Ad ministered STATE FUNDED FLUCELVAX QUADR IVALENT 0.5ML 6 YEARS AND UP 2018 Unknown May 24, 2016 Administered influenza IIV3 high dose (history) Unknown Jan Administered 1st Booster PFIZER Bivalent , COVID-19, 0.3mL (Comirnaty) IM Intramuscular Feb 16, 2022 Administered influenza IIV3 high dose (history) Unknown Dec 212014 Administered PRIVATE HIGH DOSE FLU 22-23 (FLUZONE HD) AGE 65YRS AND UP Unknown Apr 09, 2022 Administer ed zostavax (history) Unknown May 24, 2016 Administe red prevnar pcv 13 (history) Unknown May 24, 2016 Adm inistered SOCIAL HISTORY Sex Assigned At : Social History Observation Description Sex Assigned At Unknown Alcohol Screen (Audit-C) Question Answer Notes Did you have a drink containing alcohol in the p ast year? No Points 0 Interpretation Negative PHQ2 Question Answer Notes In the last 2 weeks, how oft en have you had little interest or pleasure in doing things? Not at all In the last 2 weeks, how oft en have you been feeling down, depressed, or hopeless? Not at all Total PHQ2 Score 0 REASON FOR REFERRAL No Information MEDICATIONS Medication SIG (Take, Route, Frequency, Duration) Notes Start Date End Date Status Diclofenac Sodium 1 % 1 application Externally 4 times a day as needed Oct, Active NovoLOG 100 UNIT/ML 60 units Injection before meals for 30 days Jul, Active Vitamin D3 125 MCG (5000 UT) 1 capsule Orally Once a day Active Meclizine HCl 25 MG 1 tablet Orally every 12 hours PRN dizziness Active Glimepiride 4 MG 1 tablet with breakfast or the first main meal of the day Orally Once a day for 30 days Jul, Active Pantoprazole Sodium 20 MG 1 tablet Orally Once a day for 30 days Need to call before refill. If cherelle. 20mg will change to Pepcid Active Dextromethorphan-guai FENesin 10-200 MG/5ML 10 mL as needed Orally every 4 hrs Active NovoLOG 100 UNIT/ML Give the extra insulin as directed below at each meal 150-200 10u 201-250 15u 251-300 20u 301-350-25u 351-400 30u 401-450 35u 451-500 40u If giving >20 additional units please check BS 2 hour after a meal if giving more than 20u, Injection 3 times a day Please add the additional Novolog with each meal, if needed Nov, Active Ferrous Sulfate 325 (65 Fe) MG 1 tablet Orally Once a day Active Escitalopram Oxalate 20 MG 1 tablet Orally Once a day for 30 days Mar, Active Aspirin 81 81 MG 1 tablet Orally Once a day Active Tylenol Extra Strength 500 MG 2 tablets as needed Orally every 8 hours, PRN Apr, Active Albuterol Sulfate 0.63 MG/3ML inhale 3ml as needed Inhalation every 4 hours Active Cyanocobalamin 1000 MCG/ML 1 ml Injection once monthly Active Imodium A-D 2 MG 1 tablet as needed Orally Four times a day Active Toujeo Max SoloStar 300 UNIT/ML 100u Subcutaneous twice a day Stop Regular Toujeo 15 Jun, 2022 Active traMADol HCl 50 MG 1 tablet as needed Orally every 6 hours for 28 days Do not refill until she has been seen and assessed for pain. May, Active Losartan Potassium 100 MG 1 tablet Orally Once a day for 30 days Active Mucinex 600 MG 1 tablet Orally every 12 hrs Active Acetaminophen Extra Strength 500 MG 2 tablet as needed Orally 2 times a day for 30 days Active Bumetanide 2 MG 1 tablet Orally Once a day for 30 day(s) Active Assure [place] - as directed In Vitro 4 times daily Active Proventil HFA 108 (90 Base) MCG/ACT 2 puffs as needed Inhalation every 6 hrs for 30 days Active Refresh Optive Advanced 0.5-1-0.5 % 1 drop in right eye Ophthalmic four times daily Active Rosuvastatin Calcium 20 MG 1 tablet Orally Once a day for 30 day(s) Active Pregabalin 150 MG 1 capsule Orally 3 times a day for 30 days May, Active ProAir HFA 108 (90 Base) MCG/ACT 2 puff as needed Inhalation every 6 hrs Active REASON FOR VISIT knee pain MEDICAL (GENERAL) HISTORY Type Description Date Medical History HTN Medical History DMII Medical History Anxiety Medical History Flopious Medical History osteoprosis Medical History neuropathy Medical History CAD Medical History GERD- Acid injury to stomach Medical History COPD Medical History Tick borne fever Medical History Onychomycosis due to dermatophyt e Medical History Mixed hyperglyceridemia Medical History Tobacco dependence syndrome Medical History Depressive disorder Medical History Coronary arteriosclerosis in andres kaya artery Medical History Carotid artery stenosis Medical History Allergic rhinitis Medical History Chronic bronchitis Medical History Asthma Medical History Irritable bowel Medical History Actinic keratosis Medical History Disorder of joint Medical History Low back pain Medical History Polymyalgia rheumatica Medical History Pain in limb Medical History Dizziness Medical History Fatigue Medical History Edema Medical History Palpitations Medical History Dyspnea Medical History Wheezing Medical History Type 2 diabetes sonia itus with diabetic polyneuropathy, without long-term current use of insulin Medical History Type 2 diabetes mellitus with hy perglycemia Surgical History Carotid artery surgery 2010 and 2016 Surgical History partial hysterectomy 1984 Surgical History Severe (not critical ) stenosis of right carotid. Mild stenosis on left 05/2021 Hospitalization History Diarrhea 2016 MENTAL STATUS No Information PLAN OF TREATMENT Medication Medication Name Sig Start Date Stop Date Escitalopram Oxalate 20 MG 1 tablet Oral ly Once a day for 30 days Mar, Glimepiride 4 MG 1 tablet with breakf ast or the first main meal of the day Orally Once a day for 30 days Jul, Next Appt Details Provider Name:KAVON Vang, 2022-11-16 12:20:00 AM, [facility] [place], [place], [id number], Insurance Providers Payer Name Payer Address Payer Phone Insured Name Patient Relationship to Insured Coverage Start Date Coverage End Date Subscriber Number Group Number [employer] [address] [facility] [address] EffieCaridadbharat Cason Self - patient is the insured [id number] [employer] Medicare HMO [place] Plan [address] [address] [facility] [address] Latonia Chou Self - patient is the insured [id number] [employer] 19 [address] [facility] [address] Effie Latonia S Self - patient is the insured [id number] [facility] [employer] 19 [address] [facility] [address] Latonia Chou Self - patient is the insured [id number] [facility] MEDICARE Part A [address] [place] [address] Saúl Chouribharat Cason Self - patient is the insured [id number]
--- OUTSIDE RECORDS SUMMARY | 2023-03-14 00:04 | XMS REPORT ---
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 insulin Z79.4 confirmed 343723715 Problem Anxiety F41.9 confirmed 94195342 Problem Chronic obstructive pulmonary disease, unspecified COPD type J44.9 confirmed 37380942 Problem Type 2 diabetes mellitus with other specified complication E11.69 confirmed 23344332 Problem [facility] resident Z59.3 Mar, confirmed 254656391 Problem Atrial fibrillation, unspecified type I48.91 confirmed 50368784 Problem Falling R29.6 confirmed 895498180 Problem Hyperglycemia due to diabetes mellitus E11.65 confirmed 065189977 Problem Essential hypertension I10 confirmed 87985663 Problem PVD (peripheral vascular disease) I73.9 confirmed 617181363 Problem Stasis dermatitis of both legs I87.2 confirmed 86492453 Problem Other chronic pain G89.29 confirmed 73363902 Problem Irritable bowel syndrome with diarrhea K58.0 confirmed 582035856 Problem COPD exacerbation J44.1 confirmed 084224526 Problem Hypertriglyce ridemia E78.1 confirmed 401858291 Problem CKD (chronic kidney disease) stage 4, GFR 15-29 ml/min N18.4 confirmed 748924519 Problem Chronic kidney disease, unspecified CKD stage N18.9 confirmed 283444657 Problem Stage 3 chronic kidney disease, unspecified whether stage 3a or 3b CKD N18.30 confirmed 990013570 Problem Anemia of chronic disease D63.8 confirmed 996136355 Problem Type 2 diabetes mellitus with hyperglycemia E11.65 confirmed 32916134 Problem Episode of recurrent major depressive disorder, unspecified depression episode severity F33.9 confirmed 803648312 Problem Type 2 diabetes mellitus with diabetic neuropathy, unspecified E11.40 confirmed 17216080 19 107 Problem Personality disorder in adult F60.9 confirmed 61190536 Problem Neuropathy G62.9 confirmed 214062291 Problem long term care social worker (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 of insulin Z79.4 confirmed 759710421 Problem Poor memory R41.3 confirmed 66606802 6 Problem Moderate episode of recurrent major depressive disorder F33.1 confirmed 836994749 Problem PAD (peripheral artery disease) I73.9 confirmed 040255546 Problem Slow transit constipation K59.01 confirmed 21499365 ALLERGIES Allergen (clinical drug ingredient) Drug/Non Drug Allergy documented on EMR Reaction Allergy Type Onset Date Status simvastatin Zocor(NDC Code:[address]-96) muscle pain Drug Allergy Active ampicillin Ampicillin(NDC Code:[address]-78) nausea and vomiting Drug Allergy Active Amoxicillin ER hives Drug Allergy Ac tive lisinopril Lisinopril(NDC Code:[address]-94) Unknown Drug Allergy Active Tetanus Toxoid Adsorbed /swelling Drug Allergy Active ENCOUNTERS from 1950 to 2022-10-08 Encounter Location Date Provider Diagnosis [facility] [place] [facility] [address] [facility] [id number] [place] [address] Oct, RAKESH RUSH IMMUNIZATIONS Vaccine Route Administration Date [...] a day for 30 day(s) Active Assure [employer] [place] - as directed In Vitro 4 times [...] every 6 hrs Active REASON FOR VISIT hitesh has arrived MEDICAL (GENERAL) HISTORY Type Description Date Medical [...] 30 days Jul, Next Appt Details Provider Name:RAKESH NERI, 2022-11-12 10:40:00 AM, [facility] [place], [place], [id number], Insurance Providers Payer Name Payer Address Payer Phone Insured Name Patient Relationship to Insured Coverage Start Date Coverage End Date Subscriber Number Group Number NON [facility] [employer] [address] [facility] [address] Latonia Chou Self - patient is the insured [id number] [employer] Medicare HMO [place] Plan [address] [address] [facility] [address] Latonia Chou Self - patient is the insured [id number] [employer] [address] [facility] [address] Latonia Chou Self - patient is the insured [id number] [employer] MEDICARE Part A [address] [place] [address] Latonia Chou Self - patient is the insured [id number] Life[employer] [facility] [place] [facility] [address] [facility] [address] Latonia Chou Self - patient is the insured [id number]
--- OUTSIDE RECORDS SUMMARY | 2023-03-14 00:04 | XMS REPORT ---
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 Z79.4 confirmed 566712750 Problem Anxiety F41.9 confirmed 17683850 Problem Chronic obstructive pulmonary disease, unspecified COPD type J44.9 confirmed 01821914 Problem Type 2 diabetes mellitus with other specified complication E11.69 confirmed 63839308 Problem [facility] resident Z59.3 Mar, confirmed 758048382 Problem Atrial fibrillation, unspecified type I48.91 confirmed 76681835 Problem Falling R29.6 confirmed 157601759 Problem Hyperglycemia due to diabetes mellitus E11.65 confirmed 774275964 Problem Essential hypertension I10 confirmed 46356022 Problem PVD (peripheral vascular disease) I73.9 confirmed 031818170 Problem Stasis dermatitis of both legs I87.2 confirmed 74160111 Problem Other chronic pain G89.29 confirmed 50240315 Problem Irritable bowel syndrome with diarrhea K58.0 confirmed 427621831 Problem COPD exacerbation J44.1 confirmed 345136661 Problem Hypertriglyce ridemia E78.1 confirmed 772306288 Problem CKD (chronic kidney disease) stage 4, GFR 15-29 ml/min N18.4 confirmed 545252509 Problem Chronic kidney disease, unspecified CKD stage N18.9 confirmed 447992465 Problem Stage 3 chronic kidney disease, unspecified whether stage 3a or 3b CKD N18.30 confirmed 408439825 Problem Anemia of chronic disease D63.8 confirmed 687753353 Problem Type 2 diabetes mellitus with hyperglycemia E11.65 confirmed 12510805 Problem Episode of recurrent major depressive disorder, unspecified depression episode severity F33.9 confirmed 335313685 Problem Type 2 diabetes mellitus with diabetic neuropathy, unspecified E11.40 confirmed 66912330 19 107 Problem Personality disorder in adult F60.9 confirmed 93634673 Problem Neuropathy G62.9 confirmed 442376422 Problem 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 (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 of insulin Z79.4 confirmed 332818338 Problem Poor memory R41.3 confirmed 04789717 6 Problem Moderate episode of recurrent major depressive disorder F33.1 confirmed 541897804 Problem PAD (peripheral artery disease) I73.9 confirmed 687008071 Problem Slow transit constipation K59.01 confirmed 14077443 ALLERGIES Allergen (clinical drug ingredient) Drug/Non Drug Allergy documented on EMR Reaction Allergy Type Onset Date Status simvastatin Zocor(NDC Code:[address]-65) muscle pain Drug Allergy Active ampicillin Ampicillin(NDC Code:[address]-60) nausea and vomiting Drug Allergy Active Amoxicillin ER hives Drug Allergy Ac tive lisinopril Lisinopril(NDC Code:[address]-26) Unknown Drug Allergy Active Tetanus Toxoid Adsorbed /swelling Drug Allergy Active ENCOUNTERS from 1950 to 2022-10-30 Encounter Location Date Provider Diagnosis [facility] [address] [id number] Nov, RAKESH RUSH Type 2 diabetes mellitus with other specified complication E11.69 ; 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 (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 of insulin Z79.4 ; Hyperglycemia R73.9 ; Neuropathy G62.9 ; Essential hypertension I10 ; Pain in right knee M25.561 ; Other chronic pain G89.29 and Pain in left knee M25.562 IMMUNIZATIONS Vaccine Route Administration Date Status COVID-19 Pfizer (history) Unknown Apr 28, 2020 Ad ministered COVID-19 Pfizer (history) Unknown May 18, 2020 Ad ministered COVID-19 Moderna (history) Unknown August 09, 2021 Administered influenza IIV3 high dose (history) Unknown Dec 212014 Administered influenza IIV3 high dose (history) Unknown Jan Administered STATE FUNDED FLUCELVAX QUADR IVALENT 0.5ML 6 YEARS AND UP 2018 Unknown May 24, 2016 Administered zostavax (history) Unknown May 24, 2016 Administe red influenza iiv4 mdck (history) Unknown Feb 18 8 Administered prevnar pcv 13 (history) Unknown May 24, 2016 Adm inistered PRIVATE HIGH DOSE FLU 22-23 (FLUZONE HD) AGE 65YRS AND UP Unknown Apr 09, 2022 Administer ed 1st Booster PFIZER Bivalent , COVID-19, 0.3mL (Comirnaty) IM Intramuscular Feb 16, 2022 Administered SOCIAL HISTORY Sex Assigned At : Social [...] Score 0 REASON FOR REFERRAL No Information VITAL SIGNS Height 62.25 in Nov, Temperature 97.7 degrees Fahrenheit Nov, Heart Rate 102 bpm Nov, Respiratory Rate 18 bpm Nov, Oximetry on room air:97 % Nov, Blood pressure systolic 138 mmHg Nov, Blood pressure diastolic 88 mmHg Nov, MEDICATIONS Medication SIG (Take, Route, Frequency, Duration) [...] Subcutaneous twice a day Stop Regular Toujeo Jun, Active traMADol HCl 50 MG 1 tablet [...] a day for 30 day(s) Active Assure [facility] [place] - as directed In Vitro 4 times [...] every 6 hrs Active REASON FOR VISIT 60 day-MLP MEDICAL (GENERAL) HISTORY Type Description Date Medical [...] stenosis on left 05/2021 Hospitalization History Diarrhea 2015 MENTAL STATUS No Information ASSESSMENTS Encounter Date Diagnosis Assessment Notes Treatment Notes Treatment Clinical Notes Nov, Type 2 diabetes mellitus with other specified complication (ICD-10 - E11.69) not controlled due to diet Needs A1c Nov, 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 (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 of insulin (ICD-10 - Z79.4) Nov, Hyperglycemia (ICD-10 - R73.9) Nov, Neuropathy (ICD-10 - G62.9) On Gabapentin. Pain is controlled Nov, Essential hypertension (ICD-10 - I10) controlled Nov, Pain in right knee (ICD-10 - M25.561) Nov, Other chronic pain (ICD-10 - G89.29) Nurse states she has been using the Voltaren gel Nov, Pain in left knee (ICD-10 - M25.562) PLAN OF TREATMENT Medication Medication Name Sig Start Date Stop Date Escitalopram Oxalate 20 MG 1 tablet Oral ly Once a day for 30 days Mar, Glimepiride 4 MG 1 tablet with breakf ast or the first main meal of the day Orally Once a day for 30 days Jul, Treatment Notes Assessment Notes Clinical Notes Type 2 diabetes mellitus wit h other specified complication not controlled due to diet Needs A1c Neuropathy On Gabapentin. Pain is controlled Essential hypertension controlled Other chronic pain Nurse states she has been using the Voltaren gel Next Appt Details prn Reason: Provider Name:KAVON Vang, 2022-11-16 12:20:00 AM, [address] [place], [place], [id number], Insurance Providers Payer Name Payer Address Payer Phone Insured Name Patient Relationship to Insured Coverage Start Date Coverage End Date Subscriber Number Group Number [employer] MEDICARE Part A [address] [place] [address] Latonia Chou Yoav Self - patient is the insured [id number] [employer] [address] [facility] [address] Latonia Chou Yoav Self - patient is the insured [id number] [employer] Medicare HMO [place] Plan [address] [address] [facility] [address] Latonia Chou Yoav Self - patient is the insured [id number] [facility] [employer] [address] [facility] [address] Latonia Chou Yoav Self - patient is the insured [id number] [employer] [facility] 19 [address] [facility] [address] Latonia Chou Yoav Self - patient is the insured [id number]
--- OUTSIDE RECORDS SUMMARY | 2023-03-14 00:04 | XMS REPORT ---
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 Z79.4 confirmed 903461408 Problem Anxiety F41.9 confirmed 69669587 Problem Chronic obstructive pulmonary disease, unspecified COPD type J44.9 confirmed 60180721 Problem Type 2 diabetes mellitus with other specified complication E11.69 confirmed 61028156 Problem shelter resident Z59.3 Mar, confirmed 181808257 Problem Atrial fibrillation, unspecified type I48.91 confirmed 64616008 Problem Falling R29.6 confirmed 122383882 Problem Hyperglycemia due to diabetes mellitus E11.65 confirmed 789916266 Problem Essential hypertension I10 confirmed 48966468 Problem PVD (peripheral vascular disease) I73.9 confirmed 453650138 Problem Stasis dermatitis of both legs I87.2 confirmed 50631378 Problem Other chronic pain G89.29 confirmed 21432164 Problem Irritable bowel syndrome with diarrhea K58.0 confirmed 641138121 Problem COPD exacerbation J44.1 confirmed 035587956 Problem Hypertriglyce ridemia E78.1 confirmed 963464779 Problem CKD (chronic kidney disease) stage 4, GFR 15-29 ml/min N18.4 confirmed 323817536 Problem Chronic kidney disease, unspecified CKD stage N18.9 confirmed 017704385 Problem Stage 3 chronic kidney disease, unspecified whether stage 3a or 3b CKD N18.30 confirmed 514078076 Problem Anemia of chronic disease D63.8 confirmed 953439040 Problem Type 2 diabetes mellitus with hyperglycemia E11.65 confirmed 40689924 Problem Episode of recurrent major depressive disorder, unspecified depression episode severity F33.9 confirmed 712149156 Problem Type 2 diabetes mellitus with diabetic neuropathy, unspecified E11.40 confirmed 13210737 19 107 Problem Personality disorder in adult F60.9 confirmed 57896026 Problem Neuropathy G62.9 confirmed 885644013 Problem 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 Z79.4 confirmed 027869474 Problem Poor memory R41.3 confirmed 24398053 6 Problem Moderate episode of recurrent major depressive disorder F33.1 confirmed 635081657 Problem PAD (peripheral artery disease) I73.9 confirmed 553103982 Problem Slow transit constipation K59.01 confirmed 84518573 ALLERGIES Allergen (clinical drug ingredient) Drug/Non Drug Allergy documented on EMR Reaction Allergy Type Onset Date Status simvastatin Zocor(NDC Code:[address]-45) muscle pain Drug Allergy Active ampicillin Ampicillin(NDC Code:[address]-38) nausea and vomiting Drug Allergy Active Amoxicillin ER hives Drug Allergy Ac tive lisinopril Lisinopril(NDC Code:[address]-16) Unknown Drug Allergy Active Tetanus Toxoid Adsorbed /swelling Drug Allergy Active ENCOUNTERS from 1950 to 2022-10-07 Encounter Location Date Provider Diagnosis [address] [id number] [place] [address] 08 Oct, 2020 RAKESH RUSH IMMUNIZATIONS Vaccine Route [...] Duration) Notes Start Date End Date Status NovoLOG 100 UNIT/ML 60 units Injection before meals for 30 days Jul, Active traMADol HCl 50 MG 1 tablet as needed Orally every 6 hours for 28 days Do not refill until she has been seen and assessed for pain. 13 May, 2022 Active Pantoprazole Sodium 20 MG 1 tablet Orally Once a day for 30 days Need to call before refill. If cherelle. 20mg will change to Pepcid Active Tylenol Extra Strength 500 MG 2 tablets as needed Orally every 8 hours, PRN Apr, Active Meclizine HCl 25 MG 1 tablet Orally every 12 hours PRN dizziness Active Toujeo Max SoloStar 300 UNIT/ML 100u Subcutaneous twice a day Stop Regular Toujeo 15 Jun, 2022 Active Imodium A-D 2 MG 1 tablet as needed Orally Four times a day Active Rosuvastatin Calcium 20 MG 1 tablet Orally Once a day for 30 day(s) Active Losartan Potassium 100 MG 1 tablet Orally Once a day for 30 days Active Cyanocobalamin 1000 MCG/ML 1 ml Injection once monthly Active Aspirin 81 81 MG 1 tablet Orally Once a day Active Dextromethorphan-guai FENesin 10-200 MG/5ML 10 mL [...] 1 tablet Orally Once a day Active ProAir HFA 108 (90 Base) MCG/ACT 2 puff as needed Inhalation every 4 hrs Active Bumetanide 2 MG 1 tablet Orally Once a day for 30 day(s) Active Vitamin D3 125 MCG (5000 UT) 1 capsule Orally Once a day Active Escitalopram Oxalate 10 MG 1 tablet Orally Once a day for 30 days Mar, Active Proventil HFA 108 (90 Base) MCG/ACT 2 puffs as needed Inhalation every 6 hrs for 30 days Active Mucinex 600 MG 1 tablet Orally every 12 hrs Active Assure [place] - as directed In Vitro 4 times daily Active Pregabalin 150 MG 1 capsule Orally 3 times a day for 30 days May, Active Acetaminophen Extra Strength 500 MG 2 tablet as needed Orally 2 times a day for 30 days Active Diclofenac Sodium 1 % 1 application Externally 4 times a day as needed Oct, Active Albuterol Sulfate 0.63 MG/3ML inhale 3ml as needed Inhalation every 4 hours Active Glimepiride 2 MG 1 tablet with breakfast or the first main meal of the day Orally Once a day for 30 days Jul, Active REASON FOR VISIT free style rivas MEDICAL (GENERAL) HISTORY Type Description Date Medical [...] Medication Name Sig Start Date Stop Date Glimepiride 2 MG 1 tablet with breakf ast or the first main meal of the day Orally Once a day for 30 days Jul, Next Appt Details Provider Name:RAKESH NERI, 2022-10-08 10:40:00 AM, [address] [place] [address], [id number], Provider Name:RAKESH NERI, 2022-11-12 10:40:00 AM, [address] [place] [address], [id number], Insurance Providers Payer Name Payer Address Payer Phone Insured Name Patient Relationship to Insured Coverage Start Date Coverage End Date Subscriber Number Group Number NGS MEDICARE Part A [address] [facility] [place] [address] Latonia Chou Yoav Self - patient is the insured [id number] NON [facility] [address] [facility] [address] EffieLatonia Yoav Self - patient is the insured [id number] Hum[employer] Medicare HMO [place] Plan [address] [address] [facility] [address] EffieLatonia Yoav Self - patient is the insured [id number] Pure life renal [facility] 19 [address] [facility] [address] Latonia Chou Yoav Self - patient is the insured [id number] [employer] 19 [address] [facility] [address] Latonia Chou Yoav Self - patient is the insured [id number]
--- OUTSIDE RECORDS SUMMARY | 2023-03-14 00:04 | XMS REPORT ---
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 Z79.4 confirmed 791474535 Problem PVD (peripheral vascular disease) I73.9 confirmed 259009901 Problem Stasis dermatitis of both legs I87.2 confirmed 10894180 Problem Other chronic pain G89.29 confirmed 35815854 Problem Irritable bowel syndrome with diarrhea K58.0 confirmed 787880729 Problem COPD exacerbation J44.1 confirmed 483344044 Problem Hypertriglyce ridemia E78.1 confirmed 675827577 Problem Personality disorder in adult F60.9 confirmed 13280628 Problem senior living resident Z59.3 Mar, confirmed 844846456 Problem Episode of recurrent major depressive disorder, unspecified depression episode severity F33.9 confirmed 406466467 Problem Atrial fibrillation, unspecified type I48.91 confirmed 52736784 Problem Type 2 diabetes mellitus with diabetic neuropathy, unspecified E11.40 confirmed 66264470 19 107 Problem Neuropathy G62.9 confirmed 598725586 Problem Stage 3 chronic kidney disease, unspecified whether stage 3a or 3b CKD N18.30 confirmed 819041664 Problem Falling R29.6 confirmed 916218674 Problem Type 2 diabetes mellitus with hyperglycemia E11.65 confirmed 87617939 Problem Gastroesophag eal reflux disease, esophagitis presence not specified K21.9 confirmed 628492129 Problem Anemia of chronic disease D63.8 confirmed 277919745 Problem Essential hypertension I10 confirmed 83984820 Problem Moderate episode of recurrent major depressive disorder F33.1 confirmed 436376906 Problem alf (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 of insulin Z79.4 confirmed 534946731 Problem Poor memory R41.3 confirmed 40876416 6 Problem Anxiety F41.9 confirmed 11245311 Problem Slow transit constipation K59.01 confirmed 43036029 Problem Chronic obstructive pulmonary disease, unspecified COPD type J44.9 confirmed 16127468 Problem PAD (peripheral artery disease) I73.9 confirmed 206412382 Problem Type 2 diabetes mellitus with other specified complication E11.69 confirmed 75118248 Problem Coronary artery disease involving [place] coronary artery of [place] heart without angina pectoris I25.10 confirmed 12570669 Problem Mental status change resolved Z86.59 confirmed 207307282 Problem Unspecified dementia, unspecified severity, without behavioral disturbance, psychotic disturbance, mood disturbance, and anxiety F03.90 confirmed 47137664 Problem Hypertensive chronic kidney disease w 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 I12.9 confirmed 5415255769 41827 Problem CKD (chronic kidney disease) stage 4, GFR 15-29 ml/min N18.4 confirmed 358688860 Problem Confusion R41.0 confirmed 153431496 Problem Chronic kidney disease, unspecified CKD stage N18.9 confirmed 496155694 Problem Hyperglycemia due to diabetes mellitus E11.65 confirmed 531550776 Problem Chronic kidney disease N18.9 confirmed 716270953 Problem Metabolic encephalopath y G93.41 confirmed 48198875 Problem Type 2 diabetes mellitus with diabetic chronic kidney disease E11.22 confirmed 309011244 Problem Hyperlipidemi a E78.5 confirmed 54750026 ALLERGIES Allergen (clinical drug ingredient) Drug/Non Drug Allergy documented on EMR Reaction Allergy Type Onset Date Status simvastatin Zocor(NDC Code:[address]-89) muscle pain Drug Allergy Active ampicillin Ampicillin(NDC Code:[address]-54) nausea and vomiting Drug Allergy Active Amoxicillin ER hives Drug Allergy Ac tive dulaglutide Trulicity(NDC Code:[address]-75) Unknown Drug Allergy Active lisinopril Lisinopril(NDC Code:[address]-66) Unknown Drug Allergy Active Tetanus Toxoid Adsorbed /swelling Drug Allergy Active ENCOUNTERS from 1950 to 2023-02-01 Encounter Location Date Provider Diagnosis [facility] [address] [facility] [id number] [address] Jan, RAKESH RUSH Dehydration E86.0 IMMUNIZATIONS Vaccine Route Administration Date Status influenza [...] Duration) Notes Start Date End Date Status traMADol HCl 50 MG 1 tablet as needed Orally every 6 hours for 28 days Do not refill until she has been seen and assessed for pain. Nov, Active Refresh Optive Advanced 0.5-1-0.5 % 1 drop in right eye Ophthalmic four times daily Active Escitalopram Oxalate 20 MG 1 tablet Orally Once a day for 30 days Mar, Active Pregabalin 150 MG 1 capsule Orally 3 times a day for 30 days May, Active Ventolin HFA 108 (90 Base) MCG/ACT 2 puffs as needed Inhalation every 6 hrs Active Toujeo Max SoloStar 300 UNIT/ML 50u Subcutaneous twice a day Stop Regular Toujeo 15 Jun, 2022 Active Tylenol Extra Strength 500 MG 2 tablets as needed Orally every 8 hours, PRN Apr, Active Rosuvastatin Calcium 20 MG 1 tablet Orally Once a day for 30 day(s) Active Metoprolol Tartrate 50 MG 1 tablet with food Orally Twice a day Active Cyanocobalamin 1000 MCG/ML 1 ml Injection once monthly Not on facility MAR Unknown Bumetanide 2 MG 1 tablet Orally Once a day for 30 day(s) Active Acetaminophen Extra Strength 500 MG 2 tablet as needed Orally 2 times a day for 30 days Active Mucinex 600 MG 1 tablet Orally every 12 hrs Not on facility MAR Unknown NovoLOG 100 UNIT/ML 20 u Injection before meals Jul, Active amLODIPine Besylate 5 MG 1 tablet Orally Once a day Active Dextromethorphan-guai FENesin 10-200 MG/5ML 10 mL as needed Orally every 4 hrs Active NovoLOG 100 UNIT/ML Give the extra insulin as directed below at each meal 150-200 0u 201-250 13u 251-300 25u 301-350-38u 351-400 51u 401-450 64u 451-500 77u 501-550 90u If giving >20 additional units please check BS 2 hour after a meal if giving more than 20u, Injection 3 times a day Please add the additional Novolog with each meal, if needed Nov, Active Pantoprazole Sodium 20 MG 1 tablet Orally Once a day for 30 days Need to call before refill. If cherelle. 20mg will change to Pepcid Active Aspirin 81 81 MG 1 tablet Orally Once a day Active Diclofenac Sodium 1 % 1 application Externally 4 times a day as needed Oct, Active Assure [place] - as directed In Vitro 4 times daily Not on Facility MAR Unknown Albuterol Sulfate 0.63 MG/3ML inhale 3ml as needed Inhalation every 4 hours Active Ferrous Sulfate 325 (65 Fe) MG 1 tablet Orally Once a day Active Vitamin D3 125 MCG (5000 UT) 1 capsule Orally Once a day Active Imodium A-D 2 MG 1 tablet as needed Orally Four times a day Active Glimepiride 4 MG 1 tablet with breakfast or the first main meal of the day Orally Once a day for 30 days Jul, Active REASON FOR VISIT LOW GFR MEDICAL (GENERAL) HISTORY Type Description Date Medical [...] Assessment Notes Treatment Notes Treatment Clinical Notes Jan, Dehydration (ICD-10 - E86.0) PLAN OF TREATMENT Next Appt Details Provider Name:KAVON aVng, 2023-03-22 12:20:00 AM, [address] [place] [address], [id number], Insurance Providers Payer Name Payer Address Payer Phone Insured Name Patient Relationship to Insured Coverage Start Date Coverage End Date Subscriber Number Group Number NGS MEDICARE Part A [place] [address] [place] [address] Latonia Chou Yoav Self - patient is the insured [id number] [employer] 19 [address] [facility] [phone] Latonia Chou Yoav Self - patient is the insured [id number] [employer] 19 [address] [facility] [address] Latonia Chou Yoav Self - patient is the insured [id number] [facility] [place] [address] [facility] [address] Latonia Chou Yoav Self - patient is the insured [id number] Hum[employer] Medicare HMO [place] Plan [address] [address] [facility] [phone] Latonia Chou Yoav Self - patient is the insured [id number]
--- OUTSIDE RECORDS SUMMARY | 2023-03-14 00:04 | XMS REPORT ---
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 Z79.4 confirmed 899932736 Problem Anxiety F41.9 confirmed 21984465 Problem Chronic obstructive pulmonary disease, unspecified COPD type J44.9 confirmed 16805771 Problem Type 2 diabetes mellitus with other specified complication E11.69 confirmed 50019273 Problem jail resident Z59.3 Mar, confirmed 924602761 Problem Atrial fibrillation, unspecified type I48.91 confirmed 68092197 Problem Falling R29.6 confirmed 421226065 Problem Hyperglycemia due to diabetes mellitus E11.65 confirmed 140795265 Problem Essential hypertension I10 confirmed 27181495 Problem PVD (peripheral vascular disease) I73.9 confirmed 482468258 Problem Stasis dermatitis of both legs I87.2 confirmed 30240944 Problem Other chronic pain G89.29 confirmed 10856846 Problem Irritable bowel syndrome with diarrhea K58.0 confirmed 757107425 Problem COPD exacerbation J44.1 confirmed 697750222 Problem Hypertriglyce ridemia E78.1 confirmed 296249136 Problem CKD (chronic kidney disease) stage 4, GFR 15-29 ml/min N18.4 confirmed 542171510 Problem Chronic kidney disease, unspecified CKD stage N18.9 confirmed 902561315 Problem Stage 3 chronic kidney disease, unspecified whether stage 3a or 3b CKD N18.30 confirmed 983425345 Problem Anemia of chronic disease D63.8 confirmed 740838684 Problem Type 2 diabetes mellitus with hyperglycemia E11.65 confirmed 88172092 Problem Episode of recurrent major depressive disorder, unspecified depression episode severity F33.9 confirmed 191635684 Problem Type 2 diabetes mellitus with diabetic neuropathy, unspecified E11.40 confirmed 90271163 19 107 Problem Personality disorder in adult F60.9 confirmed 55493189 Problem Neuropathy G62.9 confirmed 589332603 Problem 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 Z79.4 confirmed 824001684 Problem Poor memory R41.3 confirmed 06056851 6 Problem Moderate episode of recurrent major depressive disorder F33.1 confirmed 168193247 Problem PAD (peripheral artery disease) I73.9 confirmed 100918073 Problem Slow transit constipation K59.01 confirmed 70707857 ALLERGIES Allergen (clinical drug ingredient) Drug/Non Drug Allergy documented on EMR Reaction Allergy Type Onset Date Status simvastatin Zocor(NDC Code:[address]-64) muscle pain Drug Allergy Active ampicillin Ampicillin(NDC Code:[address]-65) nausea and vomiting Drug Allergy Active Amoxicillin ER hives Drug Allergy Ac tive lisinopril Lisinopril(NDC Code:[address]-35) Unknown Drug Allergy Active Tetanus Toxoid Adsorbed /swelling Drug Allergy Active ENCOUNTERS from 1950 to 2022-10-07 Encounter Location Date Provider Diagnosis [facility] [address] [facility] [id number] [place] [address] 07 Oct, 2020 RAKESH RUSH Type 2 diabetes mellitus with diabetic polyneuropathy, without long-term current use of insulin E11.42 IMMUNIZATIONS Vaccine Route Administration Date Status influenza [...] a day Stop Regular Toujeo Jun, Active Imodium A-D 2 MG 1 tablet [...] tablet Orally every 12 hrs Active Assure [place] - as directed In Vitro 4 times [...] 30 days Jul, Active REASON FOR VISIT Controlled-Lyrica MEDICAL (GENERAL) HISTORY Type Description Date Medical [...] History Diarrhea 2016 MENTAL STATUS No Information ASSESSMENTS Encounter Date Diagnosis Assessment Notes Treatment Notes Treatment Clinical Notes Oct, Type 2 diabetes mellitus with diabetic polyneuropathy, without long-term current use of insulin (ICD-10 - E11.42) PLAN OF TREATMENT Medication Medication Name Sig Start Date Stop Date Glimepiride 2 MG 1 tablet with breakf ast or the first main meal of the day Orally Once a day for 30 days Jul, Next Appt Details Provider Name:RAKESH NERI, 2022-10-08 10:40:00 AM, [address] [place] [address], [id number], Provider Name:RAKESH NERI, 2022-11-12 10:40:00 AM, [address] [place] [address], [id number], Insurance Providers Payer Name Payer Address Payer Phone Insured Name Patient Relationship to Insured Coverage Start Date Coverage End Date Subscriber Number Group Number [employer] [facility] 19 [address] [facility] [phone] Latonia Chou Yoav Self - patient is the insured [id number] NON [facility] [place] [address] [facility] [address] Effie Latonia Yoav Self - patient is the insured [id number] NGS MEDICARE Part A [address] [place] [phone] EffieLatonia Yoav Self - patient is the insured [id number] [employer] [address] [facility] [address] Latonia Chou Self - patient is the insured [id number] Hum[employer] Medicare HMO [place] Plan [address] [address] [facility] [address] Latonia Chou Self - patient is the insured [id number]
--- OUTSIDE RECORDS SUMMARY | 2023-03-14 00:04 | XMS REPORT ---
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 Z79.4 confirmed 748086351 Problem Anxiety F41.9 confirmed 46129349 Problem Chronic obstructive pulmonary disease, unspecified COPD type J44.9 confirmed 07237076 Problem Type 2 diabetes mellitus with other specified complication E11.69 confirmed 39377751 Problem jail resident Z59.3 Mar, confirmed 549601088 Problem Atrial fibrillation, unspecified type I48.91 confirmed 16390480 Problem Falling R29.6 confirmed 015937938 Problem Hyperglycemia due to diabetes mellitus E11.65 confirmed 906855756 Problem Essential hypertension I10 confirmed 84695225 Problem PVD (peripheral vascular disease) I73.9 confirmed 311759051 Problem Stasis dermatitis of both legs I87.2 confirmed 21996998 Problem Other chronic pain G89.29 confirmed 77237108 Problem Irritable bowel syndrome with diarrhea K58.0 confirmed 656249764 Problem COPD exacerbation J44.1 confirmed 784075512 Problem Hypertriglyce ridemia E78.1 confirmed 160723682 Problem CKD (chronic kidney disease) stage 4, GFR 15-29 ml/min N18.4 confirmed 021131906 Problem Chronic kidney disease, unspecified CKD stage N18.9 confirmed 856158444 Problem Stage 3 chronic kidney disease, unspecified whether stage 3a or 3b CKD N18.30 confirmed 502946172 Problem Anemia of chronic disease D63.8 confirmed 075912334 Problem Type 2 diabetes mellitus with hyperglycemia E11.65 confirmed 40969267 Problem Episode of recurrent major depressive disorder, unspecified depression episode severity F33.9 confirmed 271953036 Problem Type 2 diabetes mellitus with diabetic neuropathy, unspecified E11.40 confirmed 17740306 19 107 Problem Personality disorder in adult F60.9 confirmed 87334349 Problem Neuropathy G62.9 confirmed 802661165 Problem 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 (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 of 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 Z79.4 confirmed 981938280 Problem Poor memory R41.3 confirmed 72907742 6 Problem Moderate episode of recurrent major depressive disorder F33.1 confirmed 310760893 Problem PAD (peripheral artery disease) I73.9 confirmed 377825949 Problem Slow transit constipation K59.01 confirmed 00139484 ALLERGIES Allergen (clinical drug ingredient) Drug/Non Drug Allergy documented on EMR Reaction Allergy Type Onset Date Status simvastatin Zocor(NDC Code:[address]-79) muscle pain Drug Allergy Active ampicillin Ampicillin(NDC Code:[address]-36) nausea and vomiting Drug Allergy Active Amoxicillin ER hives Drug Allergy Ac tive lisinopril Lisinopril(NDC Code:[address]-29) Unknown Drug Allergy Active Tetanus Toxoid Adsorbed /swelling Drug Allergy Active ENCOUNTERS from 1950 to 2022-10-16 Encounter Location Date Provider Diagnosis [employer] [address] [id number] Oct, RAKESH ADRI Pain in left knee M25.562 IMMUNIZATIONS Vaccine Route Administration Date Status influenza [...] IIV3 high dose (history) Unknown Jan Administered PRIVATE HIGH DOSE FLU 22-23 (FLUZONE HD) AGE 65YRS AND UP Unknown Apr 09, 2022 Administer ed influenza IIV3 high dose (history) Unknown Dec 212014 Administered 1st Booster PFIZER Bivalent , COVID-19, 0.3mL (Comirnaty) IM Intramuscular Feb 16, 2022 Administered zostavax (history) Unknown May 24, 2016 [...] Total PHQ2 Score 0 REASON FOR REFERRAL from 1950 to 2022-10-16 Reason chronic left knee pa in. Worse now Diagnosis 1 Pain in left knee (M 25.562) Referral Organization [facility] Referring Provider First Name RAKESH Referring Provider Last Name ADRI Referring Provider Specialty Nurse Pract itioner Referred Provider Efren Garcia FREEM AN Referred Provider Specialty Orthopedic S urgery Referral Priority Urgent Referral Appointment Date 2020-11-16 General Notes Lives at [facility]. Has transportation. Dr Garcia will be doing the x-rays Radha Garcia 11/09/2020 8:33:58 AM >Referral faxed to Meagan Galvez 11/15/2020 02:58:18 PM >pt is scheduled with [facility] in [place] @ 9:15am. pt is aware of appt date and time.\ Radha Garcia 12/12/2020 2:42:27 PM >records requested Clinical Notes Increased pain with walking Knee is very stiff. VITAL SIGNS Height 62.25 in Oct, Temperature 97.8 degrees Fahrenheit Oct, Heart Rate 95 bpm Oct, Respiratory Rate 18 bpm Oct, Blood pressure systolic 121 mmHg Oct, Blood pressure diastolic 81 mmHg Oct, MEDICATIONS Medication SIG (Take, Route, Frequency, Duration) [...] assessed for pain. 13 May, 2022 Active Losartan Potassium 100 MG 1 tablet Orally Once a day for 30 days Active Mucinex 600 MG 1 tablet Orally every 12 hrs Active Acetaminophen Extra Strength 500 MG 2 tablet as needed Orally 2 times a day for 30 days Active Bumetanide 2 MG 1 tablet Orally Once a day for 30 day(s) Active Assure [place] - as directed In Vitro 4 times [...] every 6 hrs Active REASON FOR VISIT Knee Pain-MLP MEDICAL (GENERAL) HISTORY Type Description Date Medical [...] Notes Treatment Notes Treatment Clinical Notes Oct, Pain in left knee (ICD-10 - M25.562) PLAN OF TREATMENT Medication Medication Name Sig Start Date Stop Date Escitalopram Oxalate 20 MG 1 tablet Oral ly Once a day for 30 days Mar, Glimepiride 4 MG 1 tablet with breakf ast or the first main meal of the day Orally Once a day for 30 days Jul, Referrals Referral Date Details 2020-11-16 2020-11-16, chronic left knee pain. Worse now, Efren Garcia Next Appt Details prn Reason: Provider Name:KAVON Vang, 2022-11-16 12:20:00 AM, [address] [place], [place], [id number], Insurance Providers Payer Name Payer Address Payer Phone Insured Name Patient Relationship to Insured Coverage Start Date Coverage End Date Subscriber Number Group Number [employer] Medicare HMO [place] Plan [address] [address] [facility] [address] Latonia Chou Yoav Self - patient is the insured [id number] [facility] MEDICARE Part A [address] [place] [address] Latonia Chou Yoav Self - patient is the insured [id number] [facility] 19 [address] [facility] [address] Latonia Chou Yoav Self - patient is the insured [id number] [facility] [employer] 19 [address] [facility] [phone] Latonia Chou Yoav Self - patient is the insured [id number] [employer] 19 [address] [facility] [address] Latonia Chou Yoav Self - patient is the insured [id number]
--- OUTSIDE RECORDS SUMMARY | 2023-03-14 00:04 | XMS REPORT ---
Author Author [facility] ter of [facility] ter [facility] Address Unknown Phone Unavailable Care Team Providers Care Finance Specialist Name Role Phone RAKESH RUSH Unavailable Kay Springer Unavailable Unavailable PROBLEMS Type Condition ICD9-CM Code QSD83-XA Code Onset Dates Condition Status W/U Status Risk SNOMED Code Notes Problem longterm (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 of insulin Z79.4 confirmed 010338404 Problem PVD (peripheral vascular disease) I73.9 confirmed 394933312 Problem Stasis dermatitis of both legs I87.2 confirmed 57415326 Problem Other chronic pain G89.29 confirmed 16255533 Problem Irritable bowel syndrome with diarrhea K58.0 confirmed 227831925 Problem COPD exacerbation J44.1 confirmed 445819744 Problem Hypertriglyce ridemia E78.1 confirmed 617669091 Problem Personality disorder in adult F60.9 confirmed 40049130 Problem [facility] resident Z59.3 Mar, confirmed 013138946 Problem Episode of recurrent major depressive disorder, unspecified depression episode severity F33.9 confirmed 460453545 Problem Atrial fibrillation, unspecified type I48.91 confirmed 91029971 Problem Type 2 diabetes mellitus with diabetic neuropathy, unspecified E11.40 confirmed 97564766 19 107 Problem Neuropathy G62.9 confirmed 048062595 Problem Stage 3 chronic kidney disease, unspecified whether stage 3a or 3b CKD N18.30 confirmed 580272620 Problem Falling R29.6 confirmed 274299467 Problem Type 2 diabetes mellitus with hyperglycemia E11.65 confirmed 96621330 Problem Gastroesophag eal reflux disease, esophagitis presence not specified K21.9 confirmed 294498454 Problem Anemia of chronic disease D63.8 confirmed 374763264 Problem Essential hypertension I10 confirmed 89408442 Problem Moderate episode of recurrent major depressive disorder F33.1 confirmed 252274424 Problem longterm (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 of insulin Z79.4 confirmed 610728529 Problem Poor memory R41.3 confirmed 77389129 6 Problem Anxiety F41.9 confirmed 74315217 Problem Slow transit constipation K59.01 confirmed 95443813 Problem Chronic obstructive pulmonary disease, unspecified COPD type J44.9 confirmed 72169095 Problem PAD (peripheral artery disease) I73.9 confirmed 499435802 Problem Type 2 diabetes mellitus with other specified complication E11.69 confirmed 59573680 Problem Coronary artery disease involving [place] coronary artery of [place] heart without angina pectoris I25.10 confirmed 57253055 Problem Mental status change resolved Z86.59 confirmed 745992141 Problem Unspecified dementia, unspecified severity, without behavioral disturbance, psychotic disturbance, mood disturbance, and anxiety F03.90 confirmed 63102773 Problem Hypertensive chronic kidney disease w 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 I12.9 confirmed 8239005340 81980 Problem CKD (chronic kidney disease) stage 4, GFR 15-29 ml/min N18.4 confirmed 528083182 Problem Confusion R41.0 confirmed 898263981 Problem Chronic kidney disease, unspecified CKD stage N18.9 confirmed 645104809 Problem Hyperglycemia due to diabetes mellitus E11.65 confirmed 273036432 Problem Chronic kidney disease N18.9 confirmed 356043696 Problem Metabolic encephalopath y G93.41 confirmed 46107083 Problem Type 2 diabetes mellitus with diabetic chronic kidney disease E11.22 confirmed 464870797 Problem Hyperlipidemi a E78.5 confirmed 56707808 ALLERGIES Allergen (clinical drug ingredient) Drug/Non Drug Allergy documented on EMR Reaction Allergy Type Onset Date Status simvastatin Zocor(NDC Code:[address]-84) muscle pain Drug Allergy Active ampicillin Ampicillin(NDC Code:[address]-28) nausea and vomiting Drug Allergy Active Amoxicillin ER hives Drug Allergy Ac tive dulaglutide Trulicity(NDC Code:[address]-65) Unknown Drug Allergy Active lisinopril Lisinopril(NDC Code:[address]-20) Unknown Drug Allergy Active Tetanus Toxoid Adsorbed /swelling Drug Allergy Active ENCOUNTERS from 1950 to 2023-02-09 Encounter Location Date Provider Diagnosis [facility] [place], [place] [id number] Jan, RAKESH RUSH Type 2 diabetes mellitus with other specified complication E11.69 ; Hyperglycemia R73.9 ; Chronic kidney disease, unspecified CKD stage N18.9 ; Chronic obstructive pulmonary disease, unspecified COPD type J44.9 ; Cervicalgia M54.2 and Foot pain, left M79.672 IMMUNIZATIONS Vaccine Route Administration Date Status influenza IIV3 high dose (history) Unknown Dec 212014 Administered influenza IIV3 high dose (history) Unknown Jan Administered STATE FUNDED FLUCELVAX QUADR IVALENT 0.5ML 6 YEARS AND UP 2018 Unknown May 24, 2016 Administered COVID-19 Pfizer (history) Unknown Apr 28, 2020 Ad ministered COVID-19 Pfizer (history) Unknown May 18, 2020 Ad ministered COVID-19 Moderna (history) Unknown August 09, 2021 Administered zostavax (history) Unknown May 24, 2016 [...] 0 REASON FOR REFERRAL from 1950 to 2023-02-09 Reason abnormal kidney func tion Diagnosis 1 Chronic kidney disea se, unspecified CKD stage (N18.9) Referral Organization [facility] Referring Provider First Name RAKESH Referring Provider Last Name ADRI Referring Provider Specialty Nurse Pract reidioneshannan Referred Provider Breezy Olsen Referred Provider Specialty Nephrology Referral Priority Routine Referral Appointment Date 2021-05-03 General Notes Pt is a resident at [facility]. Would like to be seen at [facility] in [place]. They have transportation. Yajaira Gunter 03/01/2021 08:18:35 AM >Faxed. Will follow up on Saturday. Brandon Quezada 09/04/2021 10:07:05 AM >Records are back, saw Dr. Kavon De La Rosa at [place], referral needs update. Yajaira Gunter 09/12/2021 08:11:24 AM >Provider updated. VITAL SIGNS Height 62.25 in Jan, Temperature 97.5 degrees Fahrenheit Jan, Heart Rate 116 bpm Jan, Respiratory Rate 18 bpm Jan, Oximetry on room air:93 % Jan, Blood pressure systolic 117 mmHg Jan, Blood pressure diastolic 86 mmHg Jan, MEDICATIONS Medication SIG (Take, Route, Frequency, Duration) [...] a day Stop Regular Toujeo Jun, Active Tylenol Extra Strength 500 MG 2 [...] a day as needed Oct, Active Assure [place] - as directed In Vitro 4 times [...] 30 days Jul, Active REASON FOR VISIT Discuss labs-MLP MEDICAL (GENERAL) HISTORY Type Description Date Medical [...] Notes Treatment Notes Treatment Clinical Notes Jan, Type 2 diabetes mellitus with other specified complication (ICD-10 - E11.69) Jan, Hyperglycemia (ICD-1 0 - R73.9) Will wait and see how she responds to the Trulicity before adjusting her insulin Jan, Chronic kidney disease, unspecified CKD stage (ICD-10 - N18.9) Repeat CMP Want to recheck the Kidney function tests Will make referral to Nephro Jan, Chronic obstructive pulmonary disease, unspecified COPD type (ICD-10 - J44.9) Please start Albuterol Neb tx bid and q6h prn Jan, Cervicalgia (ICD-10 - M54.2) PT to eval and treat for neck pain Jan, Foot pain, left (ICD-10 - M79.672) Resident has Voltaren Gel ordered already. Advise to use the gel on her foot bid and see if it helps. PLAN OF TREATMENT Treatment Notes Assessment Notes Clinical Notes Hyperglycemia Will wait and see ho w she responds to the Trulicity before adjusting her insulin Chronic kidney disease, unsp ecified CKD stage Repeat CMP Want to recheck the Kidney function tests Will make referral to Nephro Chronic obstructive pulmonar y disease, unspecified COPD type Please start Albuterol Neb tx bid and q6h prn Cervicalgia PT to eval and treat for neck pain Foot pain, left Resident has Voltare n Gel ordered already. Advise to use the gel on her foot bid and see if it helps. Referrals Referral Date Details 2021-05-03 2021-05-03, abnormal kidney function, [facility] Appt Details 4 Weeks Reason:DM Provider Name:KAVON Vang, 2023-03-22 12:20:00 AM, [facility] [place], [place], [id number], Follow Up:4 WeeksDM Insurance Providers Payer Name Payer Address Payer Phone Insured Name Patient Relationship to Insured Coverage Start Date Coverage End Date Subscriber Number Group Number [employer] [facility] 19 [address] [facility] [phone] Latonia Chou Yoav Self - patient is the insured [id number] [employer] MEDICARE Part A [address] [place] [address] Caridad Choubharat Cason Self - patient is the insured [id number] NON [facility] [employer] 19 [address] [facility] [phone] EffieLatonia Yoav Self - patient is the insured [id number] [employer] Medicare HMO [place] Plan [address] [address] [facility] [phone] Latonia Chou Yoav Self - patient is the insured [id number] [employer] 19 [address] [facility] [address] Latonia Chou Yoav Self - patient is the insured [id number]
--- OUTSIDE RECORDS SUMMARY | 2023-03-14 00:04 | XMS REPORT ---
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 confirmed 347549634 Problem PVD (peripheral vascular disease) I73.9 confirmed 702205788 Problem Stasis dermatitis of both legs I87.2 confirmed 65127003 Problem Other chronic pain G89.29 confirmed 13816732 Problem Irritable bowel syndrome with diarrhea K58.0 confirmed 601397162 Problem COPD exacerbation J44.1 confirmed 554799225 Problem Hypertriglyce ridemia E78.1 confirmed 151290685 Problem Personality disorder in adult F60.9 confirmed 59315124 Problem [facility] resident Z59.3 Mar, confirmed 147875677 Problem Episode of recurrent major depressive disorder, unspecified depression episode severity F33.9 confirmed 626412392 Problem Atrial fibrillation, unspecified type I48.91 confirmed 79790465 Problem Type 2 diabetes mellitus with diabetic neuropathy, unspecified E11.40 confirmed 56960270 19 107 Problem Neuropathy G62.9 confirmed 976957924 Problem Stage 3 chronic kidney disease, unspecified whether stage 3a or 3b CKD N18.30 confirmed 362837645 Problem Falling R29.6 confirmed 796589895 Problem Type 2 diabetes mellitus with hyperglycemia E11.65 confirmed 09955933 Problem Gastroesophag eal reflux disease, esophagitis presence not specified K21.9 confirmed 929011821 Problem Anemia of chronic disease D63.8 confirmed 558870930 Problem Essential hypertension I10 confirmed 63550606 Problem Moderate episode of recurrent major depressive disorder F33.1 confirmed 177592874 Problem [facility] (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 of insulin Z79.4 confirmed 806816367 Problem Poor memory R41.3 confirmed 16879086 6 Problem Anxiety F41.9 confirmed 39508518 Problem Slow transit constipation K59.01 confirmed 18076568 Problem Chronic obstructive pulmonary disease, unspecified COPD type J44.9 confirmed 05237444 Problem PAD (peripheral artery disease) I73.9 confirmed 352586743 Problem Type 2 diabetes mellitus with other specified complication E11.69 confirmed 94508476 Problem Coronary artery disease involving [place] coronary artery of [place] heart without angina pectoris I25.10 confirmed 70097181 Problem Mental status change resolved Z86.59 confirmed 373767517 Problem Unspecified dementia, unspecified severity, without behavioral disturbance, psychotic disturbance, mood disturbance, and anxiety F03.90 confirmed 15231820 Problem Hypertensive chronic kidney disease w 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 I12.9 confirmed 8130109930 51361 Problem CKD (chronic kidney disease) stage 4, GFR 15-29 ml/min N18.4 confirmed 605704112 Problem Confusion R41.0 confirmed 474686539 Problem Chronic kidney disease, unspecified CKD stage N18.9 confirmed 236787921 Problem Hyperglycemia due to diabetes mellitus E11.65 confirmed 855566085 Problem Chronic kidney disease N18.9 confirmed 103815850 Problem Metabolic encephalopath y G93.41 confirmed 50867004 Problem Type 2 diabetes mellitus with diabetic chronic kidney disease E11.22 confirmed 678970143 Problem Hyperlipidemi a E78.5 confirmed 27201748 ALLERGIES Allergen (clinical drug ingredient) Drug/Non Drug Allergy documented on EMR Reaction Allergy Type Onset Date Status simvastatin Zocor(NDC Code:[address]-46) muscle pain Drug Allergy Active ampicillin Ampicillin(NDC Code:[address]-50) nausea and vomiting Drug Allergy Active Amoxicillin ER hives Drug Allergy Ac tive dulaglutide Trulicity(NDC Code:[address]-23) Unknown Drug Allergy Active lisinopril Lisinopril(NDC Code:[address]-26) Unknown Drug Allergy Active Tetanus Toxoid Adsorbed /swelling Drug Allergy Active ENCOUNTERS from 1950 to 2023-02-19 Encounter Location Date Provider Diagnosis [facility] [address] [facility] [id number] [place] [address] Dec, RAKESH RUSH IMMUNIZATIONS Vaccine Route Administration Date Status STATE FUNDED FLUCELVAX QUADR IVALENT 0.5ML 6 YEARS AND UP 2018 Unknown May 24, 2016 Administered influenza iiv4 mdck (history) Unknown Feb 18 8 Administered PRIVATE HIGH DOSE FLU 22-23 (FLUZONE HD) AGE 65YRS AND UP Unknown Apr 09, 2022 Administer ed 1st Booster PFIZER Bivalent , COVID-19, 0.3mL (Comirnaty) IM Intramuscular Feb 16, 2022 Administered COVID-19 Moderna (history) Unknown August 09, 2021 Administered COVID-19 Pfizer (history) Unknown May 18, 2020 Ad ministered influenza IIV3 high dose (history) Unknown Jan Administered COVID-19 Pfizer (history) Unknown Apr 28, 2020 Ad ministered influenza IIV3 high dose (history) Unknown Dec 212014 Administered zostavax (history) Unknown May 24, 2016 [...] a day as needed Oct, Active Assure [place] - as directed In Vitro 4 times [...] 30 days Jul, Active REASON FOR VISIT Out of [employer] MEDICAL (GENERAL) HISTORY Type Description Date Medical [...] MENTAL STATUS No Information PLAN OF TREATMENT Next Appt Details Provider Name:KAVON Vang, 2023-03-22 12:20:00 AM, [address] [place] [address], [id number], Insurance Providers Payer Name Payer Address Payer Phone Insured Name Patient Relationship to Insured Coverage Start Date Coverage End Date Subscriber Number Group Number [employer] [address] [facility] [address] Latonia Chou Self - patient is the insured [id number] [employer] [address] [facility] [address] Latonia Chou Self - patient is the insured [id number] [facility] MEDICARE Part A FI [address] [place] [address] Latonia Chou Self - patient is the insured [id number] Human Medicare [place] Plan [address] [address] [facility] [address] Latonia Chou S Self - patient is the insured [id number] [address] [facility] [phone] Latonia Chou S Self - patient is the insured [id number]
--- OUTSIDE RECORDS SUMMARY | 2023-03-14 00:04 | XMS REPORT ---
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 Z79.4 confirmed 328769718 Problem Anxiety F41.9 confirmed 24255636 Problem Chronic obstructive pulmonary disease, unspecified COPD type J44.9 confirmed 99616145 Problem Type 2 diabetes mellitus with other specified complication E11.69 confirmed 28887135 Problem [facility] resident Z59.3 Mar, confirmed 925594128 Problem Atrial fibrillation, unspecified type I48.91 confirmed 11468829 Problem Falling R29.6 confirmed 403138081 Problem Hyperglycemia due to diabetes mellitus E11.65 confirmed 415094638 Problem Essential hypertension I10 confirmed 37791919 Problem PVD (peripheral vascular disease) I73.9 confirmed 526860253 Problem Stasis dermatitis of both legs I87.2 confirmed 74878256 Problem Other chronic pain G89.29 confirmed 85936979 Problem Irritable bowel syndrome with diarrhea K58.0 confirmed 518893446 Problem COPD exacerbation J44.1 confirmed 927751946 Problem Hypertriglyce ridemia E78.1 confirmed 227017486 Problem CKD (chronic kidney disease) stage 4, GFR 15-29 ml/min N18.4 confirmed 549482152 Problem Chronic kidney disease, unspecified CKD stage N18.9 confirmed 868371317 Problem Stage 3 chronic kidney disease, unspecified whether stage 3a or 3b CKD N18.30 confirmed 719175341 Problem Anemia of chronic disease D63.8 confirmed 953106376 Problem Type 2 diabetes mellitus with hyperglycemia E11.65 confirmed 69356343 Problem Episode of recurrent major depressive disorder, unspecified depression episode severity F33.9 confirmed 510362358 Problem Type 2 diabetes mellitus with diabetic neuropathy, unspecified E11.40 confirmed 95085415 19 107 Problem Personality disorder in adult F60.9 confirmed 65674756 Problem Neuropathy G62.9 confirmed 455943450 Problem 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 Z79.4 confirmed 212975681 Problem Poor memory R41.3 confirmed 36215679 6 Problem Moderate episode of recurrent major depressive disorder F33.1 confirmed 887671272 Problem PAD (peripheral artery disease) I73.9 confirmed 996920721 Problem Slow transit constipation K59.01 confirmed 66830458 ALLERGIES Allergen (clinical drug ingredient) Drug/Non Drug Allergy documented on EMR Reaction Allergy Type Onset Date Status simvastatin Zocor(NDC Code:[address]-67) muscle pain Drug Allergy Active ampicillin Ampicillin(NDC Code:[address]-51) nausea and vomiting Drug Allergy Active Amoxicillin ER hives Drug Allergy Ac tive lisinopril Lisinopril(NDC Code:[address]-87) Unknown Drug Allergy Active Tetanus Toxoid Adsorbed /swelling Drug Allergy Active ENCOUNTERS from 1950 to 2022-11-08 Encounter Location Date Provider Diagnosis [facility] [address] [facility] [place] [id number] [place] [address] 10 Nov, 2020 RAKESH RUSH Type 2 diabetes mellitus with diabetic polyneuropathy, without long-term current use of insulin E11.42 IMMUNIZATIONS Vaccine Route Administration Date Status zostavax (history) Unknown May 24, 2016 Administe red influenza IIV3 high dose (history) Unknown Dec 212014 Administered influenza IIV3 high dose (history) Unknown Jan Administered STATE FUNDED FLUCELVAX QUADR IVALENT 0.5ML 6 YEARS AND UP 2018 Unknown May 24, 2016 Administered COVID-19 Pfizer (history) Unknown Apr 28, 2020 Ad ministered COVID-19 Pfizer (history) Unknown May 18, 2020 Ad ministered prevnar pcv 13 (history) Unknown May 24, 2016 Adm inistered COVID-19 Moderna (history) Unknown August 09, 2021 Administered 1st Booster PFIZER Bivalent , COVID-19, 0.3mL (Comirnaty) IM Intramuscular Feb 16, 2022 Administered influenza iiv4 mdck (history) Unknown Feb 18 8 Administered PRIVATE HIGH DOSE FLU 22-23 (FLUZONE HD) AGE 65YRS AND UP Unknown Apr 09, 2022 Administer ed SOCIAL HISTORY Sex Assigned At : Social [...] a day for 30 day(s) Active Assure [place] - as directed In Vitro 4 times [...] every 6 hrs Active REASON FOR VISIT Novolog MEDICAL (GENERAL) HISTORY Type Description Date Medical [...] Notes Nov, Type 2 diabetes mellitus with diabetic polyneuropathy, [...] Details Provider Name:KAVON Vang, 2022-11-16 12:20:00 AM, [facility] [place], [place], [id number], Insurance Providers Payer Name Payer Address Payer Phone Insured Name Patient Relationship to Insured Coverage Start Date Coverage End Date Subscriber Number Group Number [facility] [place] Plan [address] [address] [facility] [address] [phone] Latonia Chou Yoav Self - patient is the insured [id number] [employer] 19 [address] [facility] [address] EffieCaridadbharat Cason Self - patient is the insured [id number] NON FORMERLY [facility] [employer] [address] [facility] [address] Effie, Latonia S Self - patient is the insured [id number] [employer] MEDICARE Part A [address] [place] [address] Latonia Chou Yoav Self - patient is the insured [id number] [employer] 19 [address] [facility] [address] Latonia Chou Self - patient is the insured [id number]
--- OUTSIDE RECORDS SUMMARY | 2023-03-14 00:04 | XMS REPORT ---
Author Author [facility] ter of [facility] ter [facility] Address Unknown Phone Unavailable Care Team Providers Care Assembler Chassis Name Role Phone RAKESH RUSH Unavailable Kay Springer Unavailable Unavailable PROBLEMS Type Condition ICD9-CM Code CMG30-JJ Code Onset Dates Condition Status W/U Status Risk SNOMED Code Notes Problem Anxiety F41.9 confirmed 41930710 Problem Type 2 diabetes mellitus with other specified complication E11.69 confirmed 13850488 Problem custodial (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 of insulin Z79.4 confirmed 780535898 Problem Atrial fibrillation, unspecified type I48.91 confirmed 03106313 Problem Chronic obstructive pulmonary disease, unspecified COPD type J44.9 confirmed 22301748 Problem Neuropathy G62.9 confirmed 188697872 Problem group home resident Z59.3 Mar, confirmed 987510081 Problem Stage 3 chronic kidney disease, unspecified whether stage 3a or 3b CKD N18.30 confirmed 669344029 Problem Falling R29.6 confirmed 981819138 Problem Gastroesophag eal reflux disease, esophagitis presence not specified K21.9 confirmed 507324286 Problem Essential hypertension I10 confirmed 18587127 Problem Irritable bowel syndrome with diarrhea K58.0 confirmed 874345236 Problem PVD (peripheral vascular disease) I73.9 confirmed 826556586 Problem Hypertriglyce ridemia E78.1 confirmed 284844895 Problem Other chronic pain G89.29 confirmed 33461391 Problem Chronic kidney disease, unspecified CKD stage N18.9 confirmed 095188937 Problem COPD exacerbation J44.1 confirmed 727302680 Problem Hyperglycemia due to diabetes mellitus E11.65 confirmed 154531152 Problem CKD (chronic kidney disease) stage 4, GFR 15-29 ml/min N18.4 confirmed 755021810 Problem Anemia of chronic disease D63.8 confirmed 412448036 Problem Type 2 diabetes mellitus with hyperglycemia E11.65 confirmed 06676240 Problem Poor memory R41.3 confirmed 20171700 6 Problem Personality disorder in adult F60.9 confirmed 53656288 Problem custodial (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 of insulin Z79.4 confirmed 823612336 Problem Mental status change resolved Z86.59 confirmed 643197226 Problem Type 2 diabetes mellitus with diabetic neuropathy, unspecified E11.40 confirmed 55996807 19 107 Problem Stasis dermatitis of both legs I87.2 confirmed 17934717 Problem Moderate episode of recurrent major depressive disorder F33.1 confirmed 766413287 Problem PAD (peripheral artery disease) I73.9 confirmed 583079071 Problem Slow transit constipation K59.01 confirmed 88907669 Problem Episode of recurrent major depressive disorder, unspecified depression episode severity F33.9 confirmed 870156798 ALLERGIES Allergen (clinical drug ingredient) Drug/Non Drug Allergy documented on EMR Reaction Allergy Type Onset Date Status simvastatin Zocor(NDC Code:[address]-02) muscle pain Drug Allergy Active ampicillin Ampicillin(NDC Code:[address]-25) nausea and vomiting Drug Allergy Active Amoxicillin ER hives Drug Allergy Ac tive lisinopril Lisinopril(NDC Code:[address]-65) Unknown Drug Allergy Active Tetanus Toxoid Adsorbed /swelling Drug Allergy Active ENCOUNTERS from 1950 to 2022-12-01 Encounter Location Date Provider Diagnosis [facility] [place] [address] [facility] [id number] [place] [address] Nov, RAKESH RUSH Hypertriglyceridemia E78.1 IMMUNIZATIONS Vaccine Route Administration Date Status COVID-19 [...] influenza iiv4 mdck (history) Unknown Feb 18 Administered prevnar pcv 13 (history) Unknown May 24, 2016 Adm inistered 1st Booster PFIZER Bivalent , COVID-19, 0.3mL (Comirnaty) IM Intramuscular Feb 16, 2022 Administered PRIVATE HIGH DOSE FLU 22-23 (FLUZONE [...] Duration) Notes Start Date End Date Status Ventolin HFA 108 (90 Base) MCG/ACT 2 puffs as needed Inhalation every 6 hrs Active Imodium A-D 2 MG 1 tablet as needed Orally Four times a day Active Aspirin 81 81 MG 1 tablet Orally Once a day Active Glimepiride 4 MG 1 tablet with breakfast or the first main meal of the day Orally Once a day for 30 days Jul, Active Pregabalin 150 MG 1 capsule Orally 3 times a day for 30 days May, Active Meclizine HCl 25 MG 1 tablet Orally every 12 hours PRN dizziness Active Pantoprazole Sodium 20 MG 1 tablet Orally Once a day for 30 days Need to call before refill. If cherelle. 20mg will change to Pepcid Active NovoLOG 100 UNIT/ML 20 u Injection before meals Jul, Active Refresh Optive Advanced 0.5-1-0.5 % 1 drop in right eye Ophthalmic four times daily Active Metoprolol Tartrate 50 MG 1 tablet with food Orally Twice a day Active Albuterol Sulfate 0.63 MG/3ML inhale 3ml as needed Inhalation every 4 hours Active Toujeo Max SoloStar 300 UNIT/ML 50u Subcutaneous twice a day Stop Regular Toujeo Jun, Active Cyanocobalamin 1000 MCG/ML 1 ml Injection once monthly Active amLODIPine Besylate 5 MG 1 tablet Orally Once a day Active NovoLOG 100 UNIT/ML Give the extra [...] with each meal, if needed Nov, Active Bumetanide 2 MG 1 tablet Orally Once a day for 30 day(s) Active traMADol HCl 50 MG 1 tablet as needed Orally every 6 hours for 28 days Do not refill until she has been seen and assessed for pain. May, Active Rosuvastatin Calcium 20 MG 1 tablet Orally Once a day for 30 day(s) Active Mucinex 600 MG 1 tablet Orally every 12 hrs Active Assure [place] - as directed In Vitro 4 times daily Active Tylenol Extra Strength 500 MG 2 tablets as needed Orally every 8 hours, PRN Apr, Active Acetaminophen Extra Strength 500 MG 2 tablet as needed Orally 2 times a day for 30 days Active Vitamin D3 125 MCG (5000 UT) 1 capsule Orally Once a day Active Escitalopram Oxalate 20 MG 1 tablet Orally Once a day for 30 days Mar, Active Ferrous Sulfate 325 (65 Fe) MG 1 tablet Orally Once a day Active Diclofenac Sodium 1 % 1 application Externally 4 times a day as needed Oct, Active Dextromethorphan-guai FENesin 10-200 MG/5ML 10 mL as needed Orally every 4 hrs Active REASON FOR VISIT high trig MEDICAL (GENERAL) HISTORY Type Description Date Medical [...] Notes Treatment Notes Treatment Clinical Notes Nov, Hypertriglyceridemia (ICD-10 - E78.1) PLAN OF TREATMENT Medication Medication Name Sig Start Date Stop Date NovoLOG 100 UNIT/ML 20 u Injection before meals Jul Next Appt Details Provider Name:KAVON Vang, 2023-01-18 12:40:00 AM, [facility] [place], [place], [id number], Insurance Providers Payer Name Payer Address Payer Phone Insured Name Patient Relationship to Insured Coverage Start Date Coverage End Date Subscriber Number Group Number [employer] [facility] 19 [address] [facility] [address] Latonia Chou Self - patient is the insured [id number] [employer] 19 [address] [facility] [address] Latonia Chou Self - patient is the insured [id number] NGS MEDICARE Part A [address] [facility] [address] Latonia Chou Self - patient is the insured [id number] NON [facility] [employer] 19 [address] [facility] [address] Latonia Chou Self - patient is the insured [id number] [employer] Medicare HMO [place] Plan [address] [address] [facility] [address] Latonia Chou Self - patient is the insured [id number]
--- OUTSIDE RECORDS SUMMARY | 2023-03-14 00:04 | XMS REPORT ---
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.4 confirmed 334699613 Problem Anxiety F41.9 confirmed 23464640 Problem Chronic obstructive pulmonary disease, unspecified COPD type J44.9 confirmed 79638544 Problem Type 2 diabetes mellitus with other specified complication E11.69 confirmed 19442766 Problem [facility] resident Z59.3 Mar, confirmed 782742768 Problem Atrial fibrillation, unspecified type I48.91 confirmed 23689337 Problem Falling R29.6 confirmed 034627208 Problem Hyperglycemia due to diabetes mellitus E11.65 confirmed 984688706 Problem Essential hypertension I10 confirmed 06126465 Problem PVD (peripheral vascular disease) I73.9 confirmed 389003953 Problem Stasis dermatitis of both legs I87.2 confirmed 36297460 Problem Other chronic pain G89.29 confirmed 80252493 Problem Irritable bowel syndrome with diarrhea K58.0 confirmed 346794048 Problem COPD exacerbation J44.1 confirmed 939737602 Problem Hypertriglyce ridemia E78.1 confirmed 147493578 Problem CKD (chronic kidney disease) stage 4, GFR 15-29 ml/min N18.4 confirmed 708658953 Problem Chronic kidney disease, unspecified CKD stage N18.9 confirmed 457109442 Problem Stage 3 chronic kidney disease, unspecified whether stage 3a or 3b CKD N18.30 confirmed 158121511 Problem Anemia of chronic disease D63.8 confirmed 096573347 Problem Type 2 diabetes mellitus with hyperglycemia E11.65 confirmed 86762692 Problem Episode of recurrent major depressive disorder, unspecified depression episode severity F33.9 confirmed 559210030 Problem Type 2 diabetes mellitus with diabetic neuropathy, unspecified E11.40 confirmed 68110884 19 107 Problem Personality disorder in adult F60.9 confirmed 32077420 Problem Neuropathy G62.9 confirmed 494610411 Problem [facility]CI (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 of insulin Z79.4 confirmed 324373137 Problem Poor memory R41.3 confirmed 68731833 6 Problem Moderate episode of recurrent major depressive disorder F33.1 confirmed 432737940 Problem PAD (peripheral artery disease) I73.9 confirmed 886838287 Problem Slow transit constipation K59.01 confirmed 62442346 ALLERGIES Allergen (clinical drug ingredient) Drug/Non Drug Allergy documented on EMR Reaction Allergy Type Onset Date Status simvastatin Zocor(NDC Code:[address]-40) muscle pain Drug Allergy Active ampicillin Ampicillin(NDC Code:[address]-53) nausea and vomiting Drug Allergy Active Amoxicillin ER hives Drug Allergy Ac tive lisinopril Lisinopril(NDC Code:[address]-33) Unknown Drug Allergy Active Tetanus Toxoid Adsorbed /swelling Drug Allergy Active ENCOUNTERS from 1950 to 2022-11-26 Encounter Location Date Provider Diagnosis [email or web address] [address] [id number] Nov, KAVON KUMARI Type 2 diabetes mellitus with diabetic neuropathy, unspecified E11.40 ; Essential hypertension I10 and [facility]CI (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 of insulin Z79.4 IMMUNIZATIONS Vaccine Route Administration Date Status COVID-19 [...] Information VITAL SIGNS Height 62.25 in Nov, Weight 183.1 lbs Nov, Weight-kg 83.05 kg Nov, Temperature 97.9 degrees Fahrenheit Nov, Heart Rate 99 bpm Nov, Respiratory Rate 16 bpm Nov, Oximetry on room air:97 % Nov, BMI 33.22 kg/m2 Nov, Blood pressure systolic 122 mmHg Nov, Blood pressure diastolic 67 mmHg Nov, MEDICATIONS Medication SIG (Take, Route, Frequency, Duration) Notes Start Date End Date Status Pregabalin 150 MG 1 capsule Orally 3 times a day for 30 days May, Active Glimepiride 4 MG 1 tablet with breakfast or the first main meal of the day Orally Once a day for 30 days Jul, Active Metoprolol Tartrate 50 MG 1 tablet with food Orally Twice a day Active Imodium A-D 2 MG 1 tablet as needed Orally Four times a day Active Ventolin HFA 108 (90 Base) MCG/ACT 2 puffs as needed Inhalation every 6 hrs Active Escitalopram Oxalate 20 MG 1 tablet Orally Once a day for 30 days Mar, Active Pantoprazole Sodium 20 MG 1 tablet Orally Once a day for 30 days Need to call before refill. If cherelle. 20mg will change to Pepcid Active Ferrous Sulfate 325 (65 Fe) MG 1 tablet Orally Once a day Active NovoLOG 100 UNIT/ML 30 units Injection before meals for 30 days Jul, Active Vitamin D3 125 MCG (5000 UT) 1 capsule Orally Once a day Active Albuterol Sulfate 0.63 MG/3ML inhale 3ml as needed Inhalation every 4 hours Active Rosuvastatin Calcium 20 MG 1 tablet Orally Once a day for 30 day(s) Active traMADol HCl 50 MG 1 tablet as needed Orally every 6 hours for 28 days Do not refill until she has been seen and assessed for pain. 13 May, 2022 Active Acetaminophen Extra Strength 500 MG 2 tablet as needed Orally 2 times a day for 30 days Active Mucinex 600 MG 1 tablet Orally every 12 hrs Active Toujeo Max SoloStar 300 UNIT/ML 50u Subcutaneous twice a day Stop Regular Toujeo Jun, Active Refresh Optive Advanced 0.5-1-0.5 % 1 drop in right eye Ophthalmic four times daily Active NovoLOG 100 UNIT/ML Give the extra [...] with each meal, if needed Nov, Active Meclizine HCl 25 MG 1 tablet Orally every 12 hours PRN dizziness Active Assure [place] - as directed In Vitro 4 times daily Active amLODIPine Besylate 5 MG 1 tablet Orally Once a day Active Aspirin 81 81 MG 1 tablet Orally Once a day Active Bumetanide 2 MG 1 tablet Orally Once a day for 30 day(s) Active Cyanocobalamin 1000 MCG/ML 1 ml Injection once monthly Active Tylenol Extra Strength 500 MG 2 tablets as needed Orally every 8 hours, PRN Apr, Active Dextromethorphan-guai FENesin 10-200 MG/5ML 10 mL as needed Orally every 4 hrs Active Diclofenac Sodium 1 % 1 application Externally 4 times a day as needed Oct, Active REASON FOR VISIT 60 day-MLP MEDICAL [...] Notes Treatment Notes Treatment Clinical Notes Nov, Essential hypertension (ICD-10 - I10) Continue med Nov, Type 2 diabetes mellitus with diabetic neuropathy, unspecified (ICD-10 - E11.40) Continue meds and diet Nov, FCI (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 of insulin (ICD-10 - Z79.4) PLAN OF TREATMENT Treatment Notes Assessment Notes Clinical Notes Essential hypertension Continue med Type 2 diabetes mellitus wit h diabetic neuropathy, unspecified Continue meds and diet Next Appt Details 2 Months Reason: Provider Name:KAVON Vang, 2022-11-30 12:00:00 AM, [address], [place], [place], [id number], Provider Name:KAVON Vang, 2023-01-18 12:40:00 AM, [address] [place], [place], [id number], Insurance Providers Payer Name Payer Address Payer Phone Insured Name Patient Relationship to Insured Coverage Start Date Coverage End Date Subscriber Number Group Number [employer] [address] [facility] [address] Latonia Chou Self - patient is the insured [id number] [employer] Medicare HMO [place] Plan [address] [facility] [address] Effie, Latonia S Self - patient is the insured [id number] NON [facility] [address] [facility] [address] [phone] Effie Latonia S Self - patient is the insured [id number] NGS MEDICARE Part A [address] [facility] [address] Latonia Chou Yoav Self - patient is the insured [id number] [facility] [address] [facility] [address] [phone] Caridad Choubharat Cason Self - patient is the insured [id number]
--- OUTSIDE RECORDS SUMMARY | 2023-03-14 00:04 | XMS REPORT ---
Author Author [facility] ter of 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 (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 of insulin Z79.4 confirmed 032836726 Problem Anxiety F41.9 confirmed 24074571 Problem Chronic obstructive pulmonary disease, unspecified COPD type J44.9 confirmed 91465698 Problem Type 2 diabetes mellitus with other specified complication E11.69 confirmed 07174523 Problem [facility] resident Z59.3 Mar, confirmed 970544061 Problem Atrial fibrillation, unspecified type I48.91 confirmed 48967490 Problem Falling R29.6 confirmed 824658318 Problem Hyperglycemia due to diabetes mellitus E11.65 confirmed 084656223 Problem Essential hypertension I10 confirmed 92341647 Problem PVD (peripheral vascular disease) I73.9 confirmed 612819093 Problem Stasis dermatitis of both legs I87.2 confirmed 31227035 Problem Other chronic pain G89.29 confirmed 52250567 Problem Irritable bowel syndrome with diarrhea K58.0 confirmed 951054099 Problem COPD exacerbation J44.1 confirmed 374259691 Problem Hypertriglyce ridemia E78.1 confirmed 162081368 Problem CKD (chronic kidney disease) stage 4, GFR 15-29 ml/min N18.4 confirmed 381774742 Problem Chronic kidney disease, unspecified CKD stage N18.9 confirmed 915696156 Problem Stage 3 chronic kidney disease, unspecified whether stage 3a or 3b CKD N18.30 confirmed 345677046 Problem Anemia of chronic disease D63.8 confirmed 883567218 Problem Type 2 diabetes mellitus with hyperglycemia E11.65 confirmed 14074456 Problem Episode of recurrent major depressive disorder, unspecified depression episode severity F33.9 confirmed 418428754 Problem Type 2 diabetes mellitus with diabetic neuropathy, unspecified E11.40 confirmed 28276653 19 107 Problem Personality disorder in adult F60.9 confirmed 28453505 Problem Neuropathy G62.9 confirmed 006619587 Problem tank terminal gauger (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 of insulin Z79.4 confirmed 021037779 Problem Poor memory R41.3 confirmed 03097917 6 Problem Moderate episode of recurrent major depressive disorder F33.1 confirmed 458663653 Problem PAD (peripheral artery disease) I73.9 confirmed 946855598 Problem Slow transit constipation K59.01 confirmed 06096807 ALLERGIES Allergen (clinical drug ingredient) Drug/Non Drug Allergy documented on EMR Reaction Allergy Type Onset Date Status simvastatin Zocor(NDC Code:[address]-21) muscle pain Drug Allergy Active ampicillin Ampicillin(NDC Code:[address]-68) nausea and vomiting Drug Allergy Active Amoxicillin ER hives Drug Allergy Ac tive lisinopril Lisinopril(NDC Code:[address]-63) Unknown Drug Allergy Active Tetanus Toxoid Adsorbed /swelling Drug Allergy Active ENCOUNTERS from 1950 to 2022-10-24 Encounter Location Date Provider Diagnosis [facility] [place] [address] [id number] [place] [address] Oct, RAKESH ADRI Pain in left knee M25.562 and Pain in right knee M25.561 IMMUNIZATIONS Vaccine Route Administration Date Status COVID-19 [...] additional Novolog with each meal, if needed 11 Aug, 2022 Active Ferrous Sulfate 325 (65 Fe) MG [...] a day for 30 day(s) Active Assure [place] - as directed In Vitro 4 times [...] every 6 hrs Active REASON FOR VISIT Voltaren gel MEDICAL (GENERAL) HISTORY Type Description Date Medical [...] Pain in left knee (ICD-10 - M25.562) Oct, Pain in right knee (ICD-10 - M25.561) PLAN OF TREATMENT Medication Medication Name Sig Start Date Stop Date Escitalopram Oxalate 20 MG 1 tablet Oral ly Once a day for 30 days Mar, Glimepiride 4 MG 1 tablet with breakf ast or the first main meal of the day Orally Once a day for 30 days Jul, Next Appt Details Provider Name:KAVON Vang, 2022-11-16 12:20:00 AM, [facility] [place], [place], [id number], Insurance Providers Payer Name Payer Address Payer Phone Insured Name Patient Relationship to Insured Coverage Start Date Coverage End Date Subscriber Number Group Number NON FORMERLY [facility] [employer] 19 [address] [facility] [address] Latonia Chou Self - patient is the insured [id number] Humana Medicare HMO [place] Plan [address] [address] [facility] [address] Latonia Chou Self - patient is the insured [id number] [facility] MEDIC[facility] Part A [address] [facility] [address] Latonia Chou Self - patient is the insured [id number] [employer] 19 [address] [facility] [address] Latonia Chou Self - patient is the insured [id number] [employer] 19 [address] [facility] [address] Latonia Chou Self - patient is the insured [id number]
--- OUTSIDE RECORDS SUMMARY | 2023-03-14 00:04 | XMS REPORT ---
Author Author [facility] ter of [facility] ter [facility] Address Unknown Phone Unavailable Care Team Providers Care Call Center Representative Name Role Phone RAKESH RUSH Unavailable Kay Springer Unavailable Unavailable PROBLEMS ALLERGIES ENCOUNTERS from 1950 to 2022-10-14 IMMUNIZATIONS SOCIAL HISTORY No smoking Hx information available REASON FOR REFERRAL No Information MEDICATIONS REASON FOR VISIT MEDICAL (GENERAL) HISTORY MENTAL STATUS PLAN OF TREATMENT Insurance Providers
--- OUTSIDE RECORDS SUMMARY | 2023-03-14 00:05 | XMS REPORT ---
Author Author [facility] ter [facility] ter [facility] Address Unknown Phone Unavailable Care Team Providers Care Glaze Grinder Name Role Phone PRATEEK Jorge Unavailable [place] PineKay Unavailable Unavailable PROBLEMS Type Condition ICD9-CM Code WXA12-FH Code Onset Dates Condition Status W/U Status Risk SNOMED Code Notes Problem Gastroesophag eal reflux disease, esophagitis presence not specified K21.9 confirmed 345516978 Problem herbologist (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 of insulin Z79.4 confirmed 974334233 Problem Anxiety F41.9 confirmed 13778785 Problem Chronic obstructive pulmonary disease, unspecified COPD type J44.9 confirmed 41142400 Problem Type 2 diabetes mellitus with other specified complication E11.69 confirmed 34573759 Problem skilled nursing resident Z59.3 Mar, confirmed 883923923 Problem Atrial fibrillation, unspecified type I48.91 confirmed 66603041 Problem Falling R29.6 confirmed 538082139 Problem Hyperglycemia due to diabetes mellitus E11.65 confirmed 268775014 Problem Essential hypertension I10 confirmed 79161545 Problem PVD (peripheral vascular disease) I73.9 confirmed 196245710 Problem Stasis dermatitis of both legs I87.2 confirmed 79703531 Problem Other chronic pain G89.29 confirmed 06764553 Problem Irritable bowel syndrome with diarrhea K58.0 confirmed 065059733 Problem COPD exacerbation J44.1 confirmed 298923965 Problem Hypertriglyce ridemia E78.1 confirmed 099977132 Problem CKD (chronic kidney disease) stage 4, GFR 15-29 ml/min N18.4 confirmed 317601285 Problem Chronic kidney disease, unspecified CKD stage N18.9 confirmed 989375907 Problem Stage 3 chronic kidney disease, unspecified whether stage 3a or 3b CKD N18.30 confirmed 198711832 Problem Anemia of chronic disease D63.8 confirmed 844068940 Problem Type 2 diabetes mellitus with hyperglycemia E11.65 confirmed 74192636 Problem Episode of recurrent major depressive disorder, unspecified depression episode severity F33.9 confirmed 104128532 Problem Type 2 diabetes mellitus with diabetic neuropathy, unspecified E11.40 confirmed 88064625 19 107 Problem Personality disorder in adult F60.9 confirmed 41722817 Problem Neuropathy G62.9 confirmed 381575027 Problem herbologist (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 of insulin Z79.4 confirmed 081701591 Problem Poor memory R41.3 confirmed 55992938 6 Problem Moderate episode of recurrent major depressive disorder F33.1 confirmed 119152178 Problem PAD (peripheral artery disease) I73.9 confirmed 027443969 Problem Slow transit constipation K59.01 confirmed 92198082 ALLERGIES Allergen (clinical drug ingredient) Drug/Non Drug Allergy documented on EMR Reaction Allergy Type Onset Date Status simvastatin Zocor(NDC Code:[address]-81) muscle pain Drug Allergy Active ampicillin Ampicillin(NDC Code:[address]-27) nausea and vomiting Drug Allergy Active Amoxicillin ER hives Drug Allergy Ac tive lisinopril Lisinopril(NDC Code:[address]-79) Unknown Drug Allergy Active Tetanus Toxoid Adsorbed /swelling Drug Allergy Active ENCOUNTERS from 1950 to 2022-09-30 Encounter Location Date Provider Diagnosis [address] [id number] [place] [address] Oct, PRATEEK Jorge IMMUNIZATIONS Vaccine Route Administration Date Status STATE [...] tablet Orally every 12 hrs Active Assure [place] - as directed In Vitro 4 times [...] 30 days Jul, Active REASON FOR VISIT Request return call ref diabetic medication issue MEDICAL (GENERAL) HISTORY Type Description Date Medical [...] Details Provider Name:RAKESH NERI, 2022-10-08 10:40:00 AM, [address] [place] [address], [id number], Provider Name:RAKESH NERI, 2022-11-12 10:40:00 AM, [address] [place] [address], [id number], Insurance Providers Payer Name Payer Address Payer Phone Insured Name Patient Relationship to Insured Coverage Start Date Coverage End Date Subscriber Number Group Number SAROJ [employer] [address] [facility] [address] Latonia Chou Yoav Self - patient is the insured [id number] [employer] MEDICARE Part A [address] [place] [address] EffieLatonia Yoav Self - patient is the insured [id number] Make My plate [facility] 19 [address] [facility] [address] Latonia Chou Yoav Self - patient is the insured [id number] NON [facility] [employer] 19 [address] [facility] [address] Latonia Chou Yoav Self - patient is the insured [id number] Humana Medicare HMO [place] Plan [address] [address] [facility] [address] Latonia Chou Yoav Self - patient is the insured [id number]
--- OUTSIDE RECORDS SUMMARY | 2023-03-14 00:05 | XMS REPORT ---
Author Author [facility] ter of [facility] ter [facility] Address Unknown Phone Unavailable Care Team Providers Care Legal Research Analyst Name Role Phone RAKESH RUSH Unavailable Kay Springer Unavailable Unavailable PROBLEMS Type Condition ICD9-CM Code JKC28-BO Code Onset Dates Condition Status W/U Status Risk SNOMED Code Notes Problem Gastroesophag eal reflux disease, esophagitis presence not specified K21.9 confirmed 174788993 Problem vermin exterminator (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 of insulin Z79.4 confirmed 492966726 Problem Anxiety F41.9 confirmed 52345968 Problem Chronic obstructive pulmonary disease, unspecified COPD type J44.9 confirmed 71846085 Problem Type 2 diabetes mellitus with other specified complication E11.69 confirmed 37664049 Problem [facility] resident Z59.3 Mar, confirmed 967546672 Problem Atrial fibrillation, unspecified type I48.91 confirmed 73751592 Problem Falling R29.6 confirmed 475362719 Problem Hyperglycemia due to diabetes mellitus E11.65 confirmed 051258432 Problem Essential hypertension I10 confirmed 91255507 Problem PVD (peripheral vascular disease) I73.9 confirmed 269695312 Problem Stasis dermatitis of both legs I87.2 confirmed 63070326 Problem Other chronic pain G89.29 confirmed 45357675 Problem Irritable bowel syndrome with diarrhea K58.0 confirmed 511218641 Problem COPD exacerbation J44.1 confirmed 757969493 Problem Hypertriglyce ridemia E78.1 confirmed 328711362 Problem CKD (chronic kidney disease) stage 4, GFR 15-29 ml/min N18.4 confirmed 097687764 Problem Chronic kidney disease, unspecified CKD stage N18.9 confirmed 829418105 Problem Stage 3 chronic kidney disease, unspecified whether stage 3a or 3b CKD N18.30 confirmed 035034503 Problem Anemia of chronic disease D63.8 confirmed 043213732 Problem Type 2 diabetes mellitus with hyperglycemia E11.65 confirmed 83095866 Problem Episode of recurrent major depressive disorder, unspecified depression episode severity F33.9 confirmed 221134078 Problem Type 2 diabetes mellitus with diabetic neuropathy, unspecified E11.40 confirmed 71017705 19 107 Problem Personality disorder in adult F60.9 confirmed 17642406 Problem Neuropathy G62.9 confirmed 649673757 Problem vermin exterminator (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 of insulin Z79.4 confirmed 756041115 Problem Poor memory R41.3 confirmed 72917620 6 Problem Moderate episode of recurrent major depressive disorder F33.1 confirmed 205842779 Problem PAD (peripheral artery disease) I73.9 confirmed 660237126 Problem Slow transit constipation K59.01 confirmed 98729942 ALLERGIES Allergen (clinical drug ingredient) Drug/Non Drug Allergy documented on EMR Reaction Allergy Type Onset Date Status simvastatin Zocor(NDC Code:[address]-95) muscle pain Drug Allergy Active ampicillin Ampicillin(NDC Code:[address]-55) nausea and vomiting Drug Allergy Active Amoxicillin ER hives Drug Allergy Ac tive lisinopril Lisinopril(NDC Code:[address]-16) Unknown Drug Allergy Active Tetanus Toxoid Adsorbed /swelling Drug Allergy Active ENCOUNTERS from 1950 to 2022-09-25 Encounter Location Date Provider Diagnosis [facility] [address] [facility] [id number] [place] [address] Sep, RAKESH RUSH Gastroesophageal ref lux disease, esophagitis presence not specified K21.9 IMMUNIZATIONS Vaccine Route Administration Date Status zostavax (history) Unknown May 24, 2016 Administe red COVID-19 Pfizer (history) Unknown Apr 28, 2020 Ad ministered COVID-19 Pfizer (history) Unknown May 18, 2020 Ad ministered COVID-19 Moderna (history) Unknown August 09, 2021 Administered PRIVATE HIGH DOSE FLU 22-23 (FLUZONE HD) AGE 65YRS AND UP Unknown Apr 09, 2022 Administer ed influenza iiv4 mdck (history) Unknown Feb 18 8 Administered prevnar pcv 13 (history) Unknown May 24, [facility] FLUCELVAX QUADR IVALENT 0.5ML 6 YEARS AND UP 2018 Unknown May 24, 2016 Administered 1st Booster PFIZER Bivalent , COVID-19, 0.3mL (Comirnaty) IM Intramuscular Feb 16, 2022 Administered influenza IIV3 high dose (history) Unknown Jan Administered influenza IIV3 high dose (history) Unknown Dec 212014 Administered SOCIAL HISTORY Sex Assigned At : [...] tablet Orally every 12 hrs Active Assure [place] - as directed In Vitro 4 times [...] 30 days Jul, Active REASON FOR VISIT request to ANGEL Omeprazole MEDICAL (GENERAL) HISTORY Type Description Date Medical [...] Assessment Notes Treatment Notes Treatment Clinical Notes Sep, Gastroesophageal ref lux disease, esophagitis presence not specified (ICD-10 - K21.9) PLAN OF TREATMENT Medication Medication Name Sig Start Date Stop Date Glimepiride 2 MG 1 tablet with breakf ast or the first main meal of the day Orally Once a day for 30 days Jul, Next Appt Details Provider Name:RAKESH NERI, 2022-10-08 10:40:00 AM, [address] [place] [address], [id number], Provider Name:RAKESH NERI, 2022-11-12 10:40:00 AM, [address] [place] [address], [id number], Insurance Providers Payer Name Payer Address Payer Phone Insured Name Patient Relationship to Insured Coverage Start Date Coverage End Date Subscriber Number Group Number SAROJ [employer] [address] [facility] [address] Latonia Chou Self - patient is the insured [id number] NON [facility] [employer] 19 [address] [facility] [address] Latonia Chou Yoav Self - patient is the insured [id number] [facility] [address] [facility] [address] Latonia Chou Yoav Self - patient is the insured [id number] NGS MEDICARE Part A [address] [place] [address] Latonia Chou Self - patient is the insured [id number] Humana Medicare HMO [facility] [address] [address] [facility] [address] [phone] Latonia Chou Yoav Self - patient is the insured [id number]
--- OUTSIDE RECORDS SUMMARY | 2023-03-14 00:05 | XMS REPORT ---
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 (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 of insulin Z79.4 confirmed 006470172 Problem Anxiety F41.9 confirmed 11858236 Problem Chronic obstructive pulmonary disease, unspecified COPD type J44.9 confirmed 64482912 Problem Type 2 diabetes mellitus with other specified complication E11.69 confirmed 76338344 Problem [facility] resident Z59.3 Mar, confirmed 949278881 Problem Atrial fibrillation, unspecified type I48.91 confirmed 95034665 Problem Falling R29.6 confirmed 587478524 Problem Hyperglycemia due to diabetes mellitus E11.65 confirmed 715729503 Problem Essential hypertension I10 confirmed 85496862 Problem PVD (peripheral vascular disease) I73.9 confirmed 002482292 Problem Stasis dermatitis of both legs I87.2 confirmed 10180358 Problem Other chronic pain G89.29 confirmed 50421895 Problem Irritable bowel syndrome with diarrhea K58.0 confirmed 578138597 Problem COPD exacerbation J44.1 confirmed 350031912 Problem Hypertriglyce ridemia E78.1 confirmed 502113980 Problem CKD (chronic kidney disease) stage 4, GFR 15-29 ml/min N18.4 confirmed 107256304 Problem Chronic kidney disease, unspecified CKD stage N18.9 confirmed 073260802 Problem Stage 3 chronic kidney disease, unspecified whether stage 3a or 3b CKD N18.30 confirmed 036917156 Problem Anemia of chronic disease D63.8 confirmed 036754293 Problem Type 2 diabetes mellitus with hyperglycemia E11.65 confirmed 84022683 Problem Episode of recurrent major depressive disorder, unspecified depression episode severity F33.9 confirmed 071476549 Problem Type 2 diabetes mellitus with diabetic neuropathy, unspecified E11.40 confirmed 24997980 19 107 Problem Personality disorder in adult F60.9 confirmed 36670834 Problem Neuropathy G62.9 confirmed 572501502 Problem termite control service representative (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 of insulin Z79.4 confirmed 809670425 Problem Poor memory R41.3 confirmed 40750314 6 Problem Moderate episode of recurrent major depressive disorder F33.1 confirmed 192968676 Problem PAD (peripheral artery disease) I73.9 confirmed 982620793 Problem Slow transit constipation K59.01 confirmed 89198125 ALLERGIES Allergen (clinical drug ingredient) Drug/Non Drug Allergy documented on EMR Reaction Allergy Type Onset Date Status simvastatin Zocor(NDC Code:[address]-49) muscle pain Drug Allergy Active ampicillin Ampicillin(NDC Code:[address]-80) nausea and vomiting Drug Allergy Active Amoxicillin ER hives Drug Allergy Ac tive lisinopril Lisinopril(NDC Code:[address]-10) Unknown Drug Allergy Active Tetanus Toxoid Adsorbed /swelling Drug Allergy Active ENCOUNTERS from 1950 to 2022-10-03 Encounter Location Date Provider Diagnosis [facility] [address] [facility] [id number] [place] [address] Oct, RAKESH RUSH IMMUNIZATIONS Vaccine Route Administration [...] tablet Orally every 12 hrs Active Assure [place] - as directed In Vitro 4 times [...] 30 days Jul, Active REASON FOR VISIT CG MEDICAL (GENERAL) HISTORY Type Description Date Medical [...] Details Provider Name:RAKESH NERI, 2022-10-08 10:40:00 AM, [address] [place] [address], [id number], Provider Name:RAKESH NERI, 2022-11-12 10:40:00 AM, [address] [place] [address], [id number], Insurance Providers Payer Name Payer Address Payer Phone Insured Name Patient Relationship to Insured Coverage Start Date Coverage End Date Subscriber Number Group Number SAROJ [employer] 19 [address] [facility] [address] Effie Latonia Yoav Self - patient is the insured [id number] [employer] 19 [address] [facility] [address] Latonia Chou Self - patient is the insured [id number] [employer] MEDICARE Part A [address] [place] [address] Effie Latonia Cason Self - patient is the insured [id number] [employer] Medicare HMO ID Plan [address] [address] [facility] [address] Saúl Chouribharat Cason Self - patient is the insured [id number] NON [facility] [employer]OWER 19 [address] [facility] [address] Latonia Chou Self - patient is the insured [id number]
--- OUTSIDE RECORDS SUMMARY | 2023-03-14 00:05 | XMS REPORT ---
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 Z79.4 confirmed 086588989 Problem Anxiety F41.9 confirmed 08860599 Problem Chronic obstructive pulmonary disease, unspecified COPD type J44.9 confirmed 19596164 Problem Type 2 diabetes mellitus with other specified complication E11.69 confirmed 06219123 Problem intermediate resident Z59.3 Mar, confirmed 282719592 Problem Atrial fibrillation, unspecified type I48.91 confirmed 89598123 Problem Falling R29.6 confirmed 856774644 Problem Hyperglycemia due to diabetes mellitus E11.65 confirmed 577284972 Problem Essential hypertension I10 confirmed 30962368 Problem PVD (peripheral vascular disease) I73.9 confirmed 744384035 Problem Stasis dermatitis of both legs I87.2 confirmed 44018305 Problem Other chronic pain G89.29 confirmed 15173924 Problem Irritable bowel syndrome with diarrhea K58.0 confirmed 897359406 Problem COPD exacerbation J44.1 confirmed 328701796 Problem Hypertriglyce ridemia E78.1 confirmed 823248860 Problem CKD (chronic kidney disease) stage 4, GFR 15-29 ml/min N18.4 confirmed 648312372 Problem Chronic kidney disease, unspecified CKD stage N18.9 confirmed 471582510 Problem Stage 3 chronic kidney disease, unspecified whether stage 3a or 3b CKD N18.30 confirmed 082334185 Problem Anemia of chronic disease D63.8 confirmed 050136121 Problem Type 2 diabetes mellitus with hyperglycemia E11.65 confirmed 80689488 Problem Episode of recurrent major depressive disorder, unspecified depression episode severity F33.9 confirmed 181355418 Problem Type 2 diabetes mellitus with diabetic neuropathy, unspecified E11.40 confirmed 27362982 19 107 Problem Personality disorder in adult F60.9 confirmed 22878877 Problem Neuropathy G62.9 confirmed 136081857 Problem longterm (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 of insulin Z79.4 confirmed 857954936 Problem Poor memory R41.3 confirmed 82499566 6 Problem Moderate episode of recurrent major depressive disorder F33.1 confirmed 014406891 Problem PAD (peripheral artery disease) I73.9 confirmed 288029191 Problem Slow transit constipation K59.01 confirmed 71408337 ALLERGIES Allergen (clinical drug ingredient) Drug/Non Drug Allergy documented on EMR Reaction Allergy Type Onset Date Status simvastatin Zocor(NDC Code:[address]-98) muscle pain Drug Allergy Active ampicillin Ampicillin(NDC Code:[address]-63) nausea and vomiting Drug Allergy Active Amoxicillin ER hives Drug Allergy Ac tive lisinopril Lisinopril(NDC Code:[address]-85) Unknown Drug Allergy Active Tetanus Toxoid Adsorbed /swelling Drug Allergy Active ENCOUNTERS from 1950 to 2022 Encounter Location Date Provider Diagnosis [facility] [address] [facility] [id number] [address] Sep, KAVON KUMARI IMMUNIZATIONS Vaccine Route Administration Date Status influenza [...] tablet Orally every 12 hrs Active Assure [place] - as directed In Vitro 4 times [...] 30 days Jul, Active REASON FOR VISIT order to [facility] MEDICAL (GENERAL) HISTORY Type Description Date Medical [...] Details Provider Name:RAKESH NERI, 2022-10-08 10:40:00 AM, [address] [place] [address], [id number], Provider Name:RAKESH NERI, 2022-11-12 10:40:00 AM, [address] [place] [address], [id number], Insurance Providers Payer Name Payer Address Payer Phone Insured Name Patient Relationship to Insured Coverage Start Date Coverage End Date Subscriber Number Group Number NGS MEDICARE Part A [address] [place] [address] Latonia Chou Yoav Self - patient is the insured [id number] [employer] [address] [facility] [address] EffieaLtonia Yoav Self - patient is the insured [id number] [facility] [employer] [address] [facility] [address] Latonia Chou Yoav Self - patient is the insured [id number] [facility] [address] [facility] [address] Latonia Chou Yoav Self - patient is the insured [id number] Humana Medicare [place] Plan [address] [address] [facility] [address] EffieLatonia Yoav Self - patient is the insured [id number]
--- OUTSIDE RECORDS SUMMARY | 2023-03-14 00:05 | XMS REPORT ---
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.4 confirmed 346751176 Problem PVD (peripheral vascular disease) I73.9 confirmed 179553520 Problem Stasis dermatitis of both legs I87.2 confirmed 18344256 Problem Other chronic pain G89.29 confirmed 63568517 Problem Irritable bowel syndrome with diarrhea K58.0 confirmed 783273550 Problem COPD exacerbation J44.1 confirmed 861963019 Problem Hypertriglyce ridemia E78.1 confirmed 276160248 Problem Personality disorder in adult F60.9 confirmed 17456618 Problem FPC resident Z59.3 Mar, confirmed 186447183 Problem Episode of recurrent major depressive disorder, unspecified depression episode severity F33.9 confirmed 078350284 Problem Atrial fibrillation, unspecified type I48.91 confirmed 01020393 Problem Type 2 diabetes mellitus with diabetic neuropathy, unspecified E11.40 confirmed 68489020 19 107 Problem Neuropathy G62.9 confirmed 752490938 Problem Stage 3 chronic kidney disease, unspecified whether stage 3a or 3b CKD N18.30 confirmed 391655150 Problem Falling R29.6 confirmed 822653186 Problem Type 2 diabetes mellitus with hyperglycemia E11.65 confirmed 47568195 Problem Gastroesophag eal reflux disease, esophagitis presence not specified K21.9 confirmed 333076533 Problem Anemia of chronic disease D63.8 confirmed 531110924 Problem Essential hypertension I10 confirmed 92408849 Problem Moderate episode of recurrent major depressive disorder F33.1 confirmed 721300714 Problem longterm (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 of insulin Z79.4 confirmed 299725714 Problem Poor memory R41.3 confirmed 81575814 6 Problem Anxiety F41.9 confirmed 68613470 Problem Slow transit constipation K59.01 confirmed 04701493 Problem Chronic obstructive pulmonary disease, unspecified COPD type J44.9 confirmed 41822825 Problem PAD (peripheral artery disease) I73.9 confirmed 702912783 Problem Type 2 diabetes mellitus with other specified complication E11.69 confirmed 17074028 Problem Coronary artery disease involving [place] coronary artery of [place] heart without angina pectoris I25.10 confirmed 08961142 Problem Mental status change resolved Z86.59 confirmed 575518561 Problem Unspecified dementia, unspecified severity, without behavioral disturbance, psychotic disturbance, mood disturbance, and anxiety F03.90 confirmed 71815823 Problem Hypertensive chronic kidney disease w 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 I12.9 confirmed 7832215884 89236 Problem CKD (chronic kidney disease) stage 4, GFR 15-29 ml/min N18.4 confirmed 047318289 Problem Confusion R41.0 confirmed 729683019 Problem Chronic kidney disease, unspecified CKD stage N18.9 confirmed 770185213 Problem Hyperglycemia due to diabetes mellitus E11.65 confirmed 626265050 Problem Chronic kidney disease N18.9 confirmed 619103745 Problem Metabolic encephalopath y G93.41 confirmed 13576710 Problem Type 2 diabetes mellitus with diabetic chronic kidney disease E11.22 confirmed 872379862 Problem Hyperlipidemi a E78.5 confirmed 26102617 ALLERGIES Allergen (clinical drug ingredient) Drug/Non Drug Allergy documented on EMR Reaction Allergy Type Onset Date Status simvastatin Zocor(NDC Code:[address]-77) muscle pain Drug Allergy Active ampicillin Ampicillin(NDC Code:[address]-48) nausea and vomiting Drug Allergy Active Amoxicillin ER hives Drug Allergy Ac tive dulaglutide Trulicity(NDC Code:[address]-54) Unknown Drug Allergy Active lisinopril Lisinopril(NDC Code:[address]-84) Unknown Drug Allergy Active Tetanus Toxoid Adsorbed /swelling Drug Allergy Active ENCOUNTERS from 1950 to 2023-03-03 Encounter Location Date Provider Diagnosis [facility] [address] [facility] [id number] [address] Feb, RAKESH RUSH Hyperglycemia due to diabetes mellitus E11.65 IMMUNIZATIONS Vaccine Route Administration Date Status influenza [...] a day as needed Oct, Active Assure [place] - as directed In Vitro 4 times [...] 30 days Jul, Active REASON FOR VISIT HYPERGLYCEMA MEDICAL (GENERAL) HISTORY Type Description Date Medical [...] Assessment Notes Treatment Notes Treatment Clinical Notes Feb, Hyperglycemia due to diabetes mellitus (ICD-10 - E11.65) CancelRx Response got Denied on 2022-02-26 14:19:30 for 'Lantus 100 UNIT/ML Solution'Pharmac y Notes: Patient unknown to the Prescriber. CancelRx Response got Denied on 2022-07-09 18:36:37 for 'NovoLOG 100 UNIT/ML Solution'Pharmac y Notes: Patient unknown to the Prescriber. PLAN OF TREATMENT Treatment Notes Assessment Notes Clinical Notes Hyperglycemia due to diabetes mellitus C ancelRx Response got Denied on 2022-02-26 14:19:30 for 'Lantus 100 UNIT/ML Solution'Pharmacy Notes: Patient unknown to the Prescriber. CancelRx Response got Denied on 2022-07-09 18:36:37 for 'NovoLOG 100 UNIT/ML Solution'Pharmacy Notes: Patient unknown to the Prescriber. Next Appt Details Provider Name:KAVON Vang, 2023-03-22 12:20:00 AM, [address] [place], [place], [id number], Insurance Providers Payer Name Payer Address Payer Phone Insured Name Patient Relationship to Insured Coverage Start Date Coverage End Date Subscriber Number Group Number Humana Medicare HMO [place] Plan [address] [address] [facility] [address] Latonia Chou Self - patient is the insured [id number] [employer] [address] [facility] [address] Latonia Chou Self - patient is the insured [id number] NGS MEDICARE Part A [address] [place] [address] Latonia Chou Self - patient is the insured [id number] [employer] [facility] 19 [address] [facility] [address] EffieCaridadbharat Cason Self - patient is the insured [id number] [facility] [employer] [address] [facility] [address] Saúl Chouribharat Cason Self - patient is the insured [id number]
--- OUTSIDE RECORDS SUMMARY | 2023-03-14 00:05 | XMS REPORT ---
Author Author [facility] ter of [facility] ter [facility] Address Unknown Phone Unavailable Care Team Providers Care Store Standards Associate Name Role Phone KYM RUSH Unavailable Kay Springer Unavailable Unavailable PROBLEMS Type Condition ICD9-CM Code IDF57-DM Code Onset Dates Condition Status W/U Status Risk SNOMED Code Notes Problem Gastroesophag eal reflux disease, esophagitis presence not specified K21.9 confirmed 534471356 Problem long term care pharmacist (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 of insulin Z79.4 confirmed 953817497 Problem Anxiety F41.9 confirmed 21708516 Problem Chronic obstructive pulmonary disease, unspecified COPD type J44.9 confirmed 29420625 Problem Type 2 diabetes mellitus with other specified complication E11.69 confirmed 37310939 Problem halfway resident Z59.3 Mar, confirmed 878721587 Problem Atrial fibrillation, unspecified type I48.91 confirmed 63652023 Problem Falling R29.6 confirmed 779004045 Problem Hyperglycemia due to diabetes mellitus E11.65 confirmed 392688002 Problem Essential hypertension I10 confirmed 88624237 Problem PVD (peripheral vascular disease) I73.9 confirmed 420659524 Problem Stasis dermatitis of both legs I87.2 confirmed 15881482 Problem Other chronic pain G89.29 confirmed 37781808 Problem Irritable bowel syndrome with diarrhea K58.0 confirmed 721738506 Problem COPD exacerbation J44.1 confirmed 503781361 Problem Hypertriglyce ridemia E78.1 confirmed 383777639 Problem CKD (chronic kidney disease) stage 4, GFR 15-29 ml/min N18.4 confirmed 878125398 Problem Chronic kidney disease, unspecified CKD stage N18.9 confirmed 998803282 Problem Stage 3 chronic kidney disease, unspecified whether stage 3a or 3b CKD N18.30 confirmed 558646970 Problem Anemia of chronic disease D63.8 confirmed 661598499 Problem Type 2 diabetes mellitus with hyperglycemia E11.65 confirmed 23606368 Problem Episode of recurrent major depressive disorder, unspecified depression episode severity F33.9 confirmed 068894068 Problem Type 2 diabetes mellitus with diabetic neuropathy, unspecified E11.40 confirmed 33305491 19 107 Problem Personality disorder in adult F60.9 confirmed 73018702 Problem Neuropathy G62.9 confirmed 812860431 Problem long term care pharmacist (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 of insulin Z79.4 confirmed 133199503 Problem Poor memory R41.3 confirmed 40882592 6 Problem Moderate episode of recurrent major depressive disorder F33.1 confirmed 185876956 Problem PAD (peripheral artery disease) I73.9 confirmed 807131923 Problem Slow transit constipation K59.01 confirmed 46233202 ALLERGIES Allergen (clinical drug ingredient) Drug/Non Drug Allergy documented on EMR Reaction Allergy Type Onset Date Status simvastatin Zocor(NDC Code:[address]-68) muscle pain Drug Allergy Active ampicillin Ampicillin(NDC Code:[address]-93) nausea and vomiting Drug Allergy Active Amoxicillin ER hives Drug Allergy Ac tive lisinopril Lisinopril(NDC Code:[address]-98) Unknown Drug Allergy Active Tetanus Toxoid Adsorbed /swelling Drug Allergy Active ENCOUNTERS from 1950 to 2022-09-30 Encounter Location Date Provider Diagnosis [facility] [address] [facility] [id number] [place] [address] 30 Sep, 2020 KYM RUSH Type 2 diabetes mellitus with diabetic [...] tablet Orally every 12 hrs Active Assure [place] - as directed In Vitro 4 times [...] 30 days Jul, Active REASON FOR VISIT Free Style Lupe [facility] MEDICAL (GENERAL) HISTORY Type Description Date Medical [...] Notes Treatment Notes Treatment Clinical Notes Sep, Type 2 diabetes mellitus with diabetic polyneuropathy, without long-term current use of insulin (ICD-10 - E11.42) RN teaching at [facility] in residents room. Present are Provider Kym Rush, her nurse Dorina, and [facility] staff nurse. Patient present with CGM and all needed supplies to complete training. CGM site selection/preparati on, sensor applicator use, fruit culler setup, sensor removal and change frequency reviewed and completed with patient. Trend arrows and treatment decision guides, technical support contact numbers, sensor replacement contact numbers and DME supplier contact numbers reviewedand provided to patient for take home/after care use as well as added to patients chart. Initial sensor applied by staffing consultant to Left upper posterior arm. [place] would not read sensor and would time out session. Sensor removed and new site prepared for second sensor application by this underwriter mortgage loan. [place] would still not read sensor. Suspect defective sensor. Technical support number provided to staffing consultant at [facility]. She will contact Free Adeola Andrade for trouble shooting and hopefully be able to obtain a new reader for this patient. Free Style to be managed by PCP Kym Rush. PLAN OF TREATMENT Medication Medication Name Sig Start Date Stop Date Glimepiride 2 MG 1 tablet with breakf ast or the first main meal of the day Orally Once a day for 30 days Jul, Treatment Notes Assessment Notes Clinical Notes Type 2 diabetes mellitus wit h diabetic polyneuropathy, without long-term current use of insulin RN teaching at [facility] in residents room. Present are Provider Kym Rush, her nurse Dorina, and [facility] staff nurse. Patient present with CGM and all needed supplies to complete training. CGM site selection/preparation, sensor applicator use, fruit culler setup, sensor removal and change frequency reviewed and completed with patient. Trend arrows and treatment decision guides, technical support contact numbers, sensor replacement contact numbers and DME supplier contact numbers reviewedand provided to patient for take home/after care use as well as added to patients chart. Initial sensor applied by staffing consultant to Left upper posterior arm. [place] would not read sensor and would time out session. Sensor removed and new site prepared for second sensor application by this underwriter mortgage loan. [place] would still not read sensor. Suspect defective sensor. Technical support number provided to staffing consultant at [facility]. She will contact Luann Andrade for trouble shooting and hopefully be able to obtain a new reader for this patient. Luann Style to be managed by PCP Kym Rush. Next Appt Details Provider Name:KYM NERI, 2022-10-08 10:40:00 AM, [address] [place] [address], [id number], Provider Name:KYM NERI, 2022-11-12 10:40:00 AM, [address] [place] [address], [id number], Insurance Providers Payer Name Payer Address Payer Phone Insured Name Patient Relationship to Insured Coverage Start Date Coverage End Date Subscriber Number Group Number [facility]J [facility] [employer] [address] [facility] [phone] Latonia Chou Self - patient is the insured [id number] Humana Medicare HMO [place] Plan [address] [address] [facility] [address] Latonia Chou Self - patient is the insured [id number] NGS MEDICARE Part A [address] [place] [address] Latonia Chou Self - patient is the insured [id number] [employer] [address] [facility] [address] Latonia Chou Self - patient is the insured [id number] [facility] [employer] [address] [facility] [address] [phone] Latonia Chou Self - patient is the insured [id number]
--- OUTSIDE RECORDS SUMMARY | 2023-03-14 00:05 | XMS REPORT ---
Author Author [facility] ter [facility] ter [facility] Address Unknown Phone Unavailable Care Team Providers Care Roads Supervisor Name Role Phone PRATEEK Jorge Unavailable [place] Unavailable Unavailable PROBLEMS Type Condition ICD9-CM Code DOE20-YS Code Onset Dates Condition Status W/U Status Risk SNOMED Code Notes Problem Gastroesophag eal reflux disease, esophagitis presence not specified K21.9 confirmed 132652953 Problem terminal manager (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 of insulin Z79.4 confirmed 467043641 Problem Anxiety F41.9 confirmed 26406799 Problem Chronic obstructive pulmonary disease, unspecified COPD type J44.9 confirmed 01678388 Problem Type 2 diabetes mellitus with other specified complication E11.69 confirmed 68461366 Problem detention resident Z59.3 Mar, confirmed 578022242 Problem Atrial fibrillation, unspecified type I48.91 confirmed 06371978 Problem Falling R29.6 confirmed 563987593 Problem Hyperglycemia due to diabetes mellitus E11.65 confirmed 707413988 Problem Essential hypertension I10 confirmed 93188082 Problem PVD (peripheral vascular disease) I73.9 confirmed 814022031 Problem Stasis dermatitis of both legs I87.2 confirmed 84587146 Problem Other chronic pain G89.29 confirmed 95592531 Problem Irritable bowel syndrome with diarrhea K58.0 confirmed 680291698 Problem COPD exacerbation J44.1 confirmed 239222377 Problem Hypertriglyce ridemia E78.1 confirmed 765216740 Problem CKD (chronic kidney disease) stage 4, GFR 15-29 ml/min N18.4 confirmed 283000226 Problem Chronic kidney disease, unspecified CKD stage N18.9 confirmed 994696957 Problem Stage 3 chronic kidney disease, unspecified whether stage 3a or 3b CKD N18.30 confirmed 913778555 Problem Anemia of chronic disease D63.8 confirmed 614023904 Problem Type 2 diabetes mellitus with hyperglycemia E11.65 confirmed 07956801 Problem Episode of recurrent major depressive disorder, unspecified depression episode severity F33.9 confirmed 305421844 Problem Type 2 diabetes mellitus with diabetic neuropathy, unspecified E11.40 confirmed 70814042 19 107 Problem Personality disorder in adult F60.9 confirmed 34420932 Problem Neuropathy G62.9 confirmed 611667378 Problem terminal manager (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 of insulin Z79.4 confirmed 146581317 Problem Poor memory R41.3 confirmed 26262129 6 Problem Moderate episode of recurrent major depressive disorder F33.1 confirmed 756109914 Problem PAD (peripheral artery disease) I73.9 confirmed 130550768 Problem Slow transit constipation K59.01 confirmed 51013585 ALLERGIES Allergen (clinical drug ingredient) Drug/Non Drug Allergy documented on EMR Reaction Allergy Type Onset Date Status simvastatin Zocor(NDC Code:[address]-58) muscle pain Drug Allergy Active ampicillin Ampicillin(NDC Code:[address]-53) nausea and vomiting Drug Allergy Active Amoxicillin ER hives Drug Allergy Ac tive lisinopril Lisinopril(NDC Code:[address]-29) Unknown Drug Allergy Active Tetanus Toxoid Adsorbed /swelling Drug Allergy Active ENCOUNTERS from 1950 to 2022-09-28 Encounter Location Date Provider Diagnosis [facility] [address] [facility] [id number] [address] Sep, PRATEEK Jorge IMMUNIZATIONS Vaccine Route Administration Date Status influenza [...] tablet Orally every 12 hrs Active Assure [place] - as directed In Vitro 4 times [...] 30 days Jul, Active REASON FOR VISIT Requests return call MEDICAL (GENERAL) HISTORY Type Description Date Medical [...] Surgical History Carotid artery surgery 2010 and 2017 Surgical History partial hysterectomy 1984 Surgical History [...] Details Provider Name:RAKESH NERI, 2022-10-08 10:40:00 AM, [address] [place] [address], [id number], Provider Name:RAKESH NERI, 2022-11-12 10:40:00 AM, [address] [place] [address], [id number], Insurance Providers Payer Name Payer Address Payer Phone Insured Name Patient Relationship to Insured Coverage Start Date Coverage End Date Subscriber Number Group Number NON [facility] [employer] [address] [facility] [address] Latonia Chou Yoav Self - patient is the insured [id number] Humana Medicare [place] Plan [address] [address] [facility] [address] Latonia Chou Yoav Self - patient is the insured [id number] NGS MEDICARE Part A [address] [place] [address] Latonia Chou Yoav Self - patient is the insured [id number] [employer] [address] [facility] [address] Latonia Chou Yoav Self - patient is the insured [id number] [facility] [address] [facility] [address] Latonia Chou Yoav Self - patient is the insured [id number]
--- OUTSIDE RECORDS SUMMARY | 2023-03-14 00:05 | XMS REPORT ---
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 Z79.4 confirmed [id number] Problem PVD (peripheral vascular disease) I73.9 confirmed 507329467 Problem Stasis dermatitis of both legs I87.2 confirmed 58424741 Problem Other chronic pain G89.29 confirmed 63103471 Problem Irritable bowel syndrome with diarrhea K58.0 confirmed 161632904 Problem COPD exacerbation J44.1 confirmed 744607141 Problem Hypertriglyce ridemia E78.1 confirmed 868517072 Problem Personality disorder in adult F60.9 confirmed 09527453 Problem senior care resident Z59.3 Mar, confirmed 114037133 Problem Episode of recurrent major depressive disorder, unspecified depression episode severity F33.9 confirmed 554700430 Problem Atrial fibrillation, unspecified type I48.91 confirmed 35129031 Problem Type 2 diabetes mellitus with diabetic neuropathy, unspecified E11.40 confirmed 81203059 19 107 Problem Neuropathy G62.9 confirmed 921593117 Problem Stage 3 chronic kidney disease, unspecified whether stage 3a or 3b CKD N18.30 confirmed 778000975 Problem Falling R29.6 confirmed 177143683 Problem Type 2 diabetes mellitus with hyperglycemia E11.65 confirmed 01029659 Problem Gastroesophag eal reflux disease, esophagitis presence not specified K21.9 confirmed 292888579 Problem Anemia of chronic disease D63.8 confirmed 980867209 Problem Essential hypertension I10 confirmed 22118700 Problem Moderate episode of recurrent major depressive disorder F33.1 confirmed 278181486 Problem halfway (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 of insulin Z79.4 confirmed 289744612 Problem Poor memory R41.3 confirmed 11929733 6 Problem Anxiety F41.9 confirmed 33249168 Problem Slow transit constipation K59.01 confirmed 14342157 Problem Chronic obstructive pulmonary disease, unspecified COPD type J44.9 confirmed 91216417 Problem PAD (peripheral artery disease) I73.9 confirmed 883024906 Problem Type 2 diabetes mellitus with other specified complication E11.69 confirmed 19429633 Problem Coronary artery disease involving [place] coronary artery of [place] heart without angina pectoris I25.10 confirmed 96334034 Problem Mental status change resolved Z86.59 confirmed 736276450 Problem Unspecified dementia, unspecified severity, without behavioral disturbance, psychotic disturbance, mood disturbance, and anxiety F03.90 confirmed 99346336 Problem Hypertensive chronic kidney disease w 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 I12.9 confirmed 8390831140 11418 Problem CKD (chronic kidney disease) stage 4, GFR 15-29 ml/min N18.4 confirmed 101537851 Problem Confusion R41.0 confirmed 708522750 Problem Chronic kidney disease, unspecified CKD stage N18.9 confirmed 693346658 Problem Hyperglycemia due to diabetes mellitus E11.65 confirmed 540881855 Problem Chronic kidney disease N18.9 confirmed 018043862 Problem Metabolic encephalopath y G93.41 confirmed 58172691 Problem Type 2 diabetes mellitus with diabetic chronic kidney disease E11.22 confirmed 336633626 Problem Hyperlipidemi a E78.5 confirmed 26641632 ALLERGIES Allergen (clinical drug ingredient) Drug/Non Drug Allergy documented on EMR Reaction Allergy Type Onset Date Status simvastatin Zocor(NDC Code:[address]-31) muscle pain Drug Allergy Active ampicillin Ampicillin(NDC Code:[address]-60) nausea and vomiting Drug Allergy Active Amoxicillin ER hives Drug Allergy Ac tive dulaglutide Trulicity(NDC Code:[address]-97) Unknown Drug Allergy Active lisinopril Lisinopril(NDC Code:[address]-75) Unknown Drug Allergy Active Tetanus Toxoid Adsorbed /swelling Drug Allergy Active ENCOUNTERS from 1950 to 2023-03-05 Encounter Location Date Provider Diagnosis [facility] [address] [place] [id number] Feb, RAKESH RUSH Type 2 diabetes mellitus with other specified complication E11.69 and CKD (chronic kidney disease) stage 4, GFR 15-29 ml/min N18.4 IMMUNIZATIONS Vaccine Route Administration Date Status influenza [...] No Information VITAL SIGNS Height 62.25 in Feb, Temperature 97.6 degrees Fahrenheit Feb, Heart Rate 111 bpm Feb, Respiratory Rate 18 bpm Feb, Oximetry 97 % Feb, Blood pressure systolic 139 mmHg Feb, Blood pressure diastolic 72 mmHg Feb, MEDICATIONS Medication SIG (Take, Route, Frequency, Duration) Notes Start Date End Date Status Escitalopram Oxalate 20 MG 1 tablet Orally Once a day for 30 days Mar, Active Refresh Optive Advanced 0.5-1-0.5 % 1 drop in right eye Ophthalmic four times daily Active Diclofenac Sodium 1 % 1 application Externally 4 times a day as needed Oct, Active Pantoprazole Sodium 20 MG 1 tablet Orally Once a day for 30 days Need to call before refill. If cherelle. 20mg will change to Pepcid Active Tylenol Extra Strength 500 MG 2 tablets as needed Orally every 8 hours, PRN Apr, Active Toujeo Max SoloStar 300 UNIT/ML 50u Subcutaneous twice a day Stop Regular Toujeo Jun, Active traMADol HCl 50 MG 1 tablet as needed Orally every 6 hours for 28 days Do not refill until she has been seen and assessed for pain. Nov, Active Rosuvastatin Calcium 20 MG 1 tablet Orally Once a day for 30 day(s) Active Ventolin HFA 108 (90 Base) MCG/ACT 2 puffs as needed Inhalation every 6 hrs Active Bumetanide 2 MG 1 tablet Orally Once a day for 30 day(s) Active Assure [place] - as directed In Vitro 4 times daily Not on Facility MAR Unknown Albuterol Sulfate 0.63 MG/3ML inhale 3ml as needed Inhalation every 4 hours Active Dextromethorphan-guai FENesin 10-200 MG/5ML 10 mL [...] with each meal, if needed Nov, Active Aspirin 81 81 MG 1 tablet Orally Once a day Active Cyanocobalamin 1000 MCG/ML 1 ml Injection once monthly Not on facility MAR Unknown Metoprolol Tartrate 50 MG 1 tablet with food Orally Twice a day Active NovoLOG 100 UNIT/ML 20 u Injection before meals Jul, Active Acetaminophen Extra Strength 500 MG 2 tablet as needed Orally 2 times a day for 30 days Active Mucinex 600 MG 1 tablet Orally every 12 hrs Not on facility MAR Unknown amLODIPine Besylate 5 MG 1 tablet Orally Once a day Active Vitamin D3 125 MCG (5000 UT) 1 capsule Orally Once a day Active Imodium A-D 2 MG 1 tablet as needed Orally Four times a day Active Ferrous Sulfate 325 (65 Fe) MG 1 tablet Orally Once a day Active Glimepiride 4 MG 1 tablet with breakfast or the first main meal of the day Orally Once a day for 30 days Jul, Active Pregabalin 150 MG 1 capsule Orally 3 times a day for 30 days Feb, Active REASON FOR VISIT Follow up DM and kidneys-[facility] MEDICAL (GENERAL) HISTORY Type Description Date Medical [...] Notes Treatment Notes Treatment Clinical Notes Feb, CKD (chronic kidney disease) stage 4, GFR 15-29 ml/min (ICD-10 - N18.4) [facility] Feb, Type 2 diabetes mellitus with other specified complication (ICD-10 - E11.69) Insulin changes done only yesterday. Will see how she does Snacks alot PLAN OF TREATMENT Medication Medication Name Sig Start Date Stop Date Pregabalin 150 MG 1 capsule Orally 3 times a day for 3 0 days Feb, Treatment Notes Assessment Notes Clinical Notes CKD (chronic kidney disease) stage 4, GFR 15-29 ml/min [facility] records [facility] she has a FU in 3 weeks Type 2 diabetes mellitus wit h other specified complication Insulin changes done only yesterday. Will see how she does Snacks alot Next Appt Details prn Reason: Provider Name:KAVON Vang, 2023-03-22 12:20:00 AM, [address] [place], [place], [id number], Insurance Providers Payer Name Payer Address Payer Phone Insured Name Patient Relationship to Insured Coverage Start Date Coverage End Date Subscriber Number Group Number [employer] Medicare HMO [place] Plan [address] [address] [facility] [phone] Latonia Chou Yoav Self - patient is the insured [id number] [employer] [address] [facility] [address] Latonia Chou Yoav Self - patient is the insured [id number] [employer] [facility] 19 [address] [facility] [address] Latonia Chou Yoav Self - patient is the insured [id number] [facility] [employer] [address] [facility] [address] Latonia Chou Yoav Self - patient is the insured [id number] [employer] MEDICARE Part A [address] [place] [address] Latonia Chou Yoav Self - patient is the insured [id number]
--- OUTSIDE RECORDS SUMMARY | 2023-03-14 00:06 | XMS REPORT ---
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 confirmed 797450016 Problem PVD (peripheral vascular disease) I73.9 confirmed 913428181 Problem Stasis dermatitis of both legs I87.2 confirmed 23335712 Problem Other chronic pain G89.29 confirmed 60584577 Problem Irritable bowel syndrome with diarrhea K58.0 confirmed 033037780 Problem COPD exacerbation J44.1 confirmed 089453868 Problem Hypertriglyce ridemia E78.1 confirmed 436177531 Problem Personality disorder in adult F60.9 confirmed 90551451 Problem assisted resident Z59.3 Mar, confirmed 151598202 Problem Episode of recurrent major depressive disorder, unspecified depression episode severity F33.9 confirmed 328136943 Problem Atrial fibrillation, unspecified type I48.91 confirmed 55485010 Problem Type 2 diabetes mellitus with diabetic neuropathy, unspecified E11.40 confirmed 05715944 19 107 Problem Neuropathy G62.9 confirmed 670657247 Problem Stage 3 chronic kidney disease, unspecified whether stage 3a or 3b CKD N18.30 confirmed 567761986 Problem Falling R29.6 confirmed 156874485 Problem Type 2 diabetes mellitus with hyperglycemia E11.65 confirmed 54449206 Problem Gastroesophag eal reflux disease, esophagitis presence not specified K21.9 confirmed 443662614 Problem Anemia of chronic disease D63.8 confirmed 086795712 Problem Essential hypertension I10 confirmed 53950551 Problem Moderate episode of recurrent major depressive disorder F33.1 confirmed 302136128 Problem snf (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 of insulin Z79.4 confirmed 614576814 Problem Poor memory R41.3 confirmed 46247793 6 Problem Anxiety F41.9 confirmed 95389780 Problem Slow transit constipation K59.01 confirmed 34018487 Problem Chronic obstructive pulmonary disease, unspecified COPD type J44.9 confirmed 77797285 Problem PAD (peripheral artery disease) I73.9 confirmed 669926529 Problem Type 2 diabetes mellitus with other specified complication E11.69 confirmed 04562261 Problem Coronary artery disease involving [place] coronary artery of [place] heart without angina pectoris I25.10 confirmed 52122648 Problem Mental status change resolved Z86.59 confirmed 118981830 Problem Unspecified dementia, unspecified severity, without behavioral disturbance, psychotic disturbance, mood disturbance, and anxiety F03.90 confirmed 62420006 Problem Hypertensive chronic kidney disease w 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 I12.9 confirmed 3795031819 05094 Problem CKD (chronic kidney disease) stage 4, GFR 15-29 ml/min N18.4 confirmed 713759448 Problem Confusion R41.0 confirmed 937781497 Problem Chronic kidney disease, unspecified CKD stage N18.9 confirmed 046536479 Problem Hyperglycemia due to diabetes mellitus E11.65 confirmed 113000459 Problem Chronic kidney disease N18.9 confirmed 883500376 Problem Metabolic encephalopath y G93.41 confirmed 76069337 Problem Type 2 diabetes mellitus with diabetic chronic kidney disease E11.22 confirmed 036315597 Problem Hyperlipidemi a E78.5 confirmed 41507319 ALLERGIES Allergen (clinical drug ingredient) Drug/Non Drug Allergy documented on EMR Reaction Allergy Type Onset Date Status simvastatin Zocor(NDC Code:[address]-28) muscle pain Drug Allergy Active ampicillin Ampicillin(NDC Code:[address]-60) nausea and vomiting Drug Allergy Active Amoxicillin ER hives Drug Allergy Ac tive dulaglutide Trulicity(NDC Code:[address]-23) Unknown Drug Allergy Active lisinopril Lisinopril(NDC Code:[address]-15) Unknown Drug Allergy Active Tetanus Toxoid Adsorbed /swelling Drug Allergy Active ENCOUNTERS from 1950 to 2023-02-26 Encounter Location Date Provider Diagnosis [facility] [address] [facility] [id number] [place] [address] Feb, RAKESH RUSH IMMUNIZATIONS Vaccine Route Administration Date [...] a day as needed Oct, Active Assure [place] - as directed In Vitro 4 times [...] 30 days Jul, Active REASON FOR VISIT U/S Bilat Renal MEDICAL (GENERAL) HISTORY Type Description Date Medical [...] History Diarrhea 2015 MENTAL STATUS No Information PLAN OF TREATMENT Next Appt Details Provider Name:KAVON Vang, 2023-03-22 12:20:00 AM, [address] [place] [address], [id number], Insurance Providers Payer Name Payer Address Payer Phone Insured Name Patient Relationship to Insured Coverage Start Date Coverage End Date Subscriber Number Group Number SAROJ [employer] [address] [facility] [phone] Latonia Chou Yoav Self - patient is the insured [id number] NON [facility] [employer] [address] [facility] [address] Effie Latonia Yoav Self - patient is the insured [id number] [employer] [facility] 19 [address] [facility] [address] EffieCaridadbharat Cason Self - patient is the insured [id number] [facility] MEDICARE Part A [address] [place] [address] Latonia Chou Yoav Self - patient is the insured [id number] [employer] Medicare HMO [place] Plan [address] [address] [facility] [address] Latonia Chou Yoav Self - patient is the insured [id number]
--- OUTSIDE RECORDS SUMMARY | 2023-03-14 00:06 | XMS REPORT ---
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.4 confirmed 203579784 Problem PVD (peripheral vascular disease) I73.9 confirmed 136417752 Problem Stasis dermatitis of both legs I87.2 confirmed 50063359 Problem Other chronic pain G89.29 confirmed 17960063 Problem Irritable bowel syndrome with diarrhea K58.0 confirmed 567292023 Problem COPD exacerbation J44.1 confirmed 797699527 Problem Hypertriglyce ridemia E78.1 confirmed 517589126 Problem Personality disorder in adult F60.9 confirmed 30880092 Problem long term resident Z59.3 Mar, confirmed 912801802 Problem Episode of recurrent major depressive disorder, unspecified depression episode severity F33.9 confirmed 718271086 Problem Atrial fibrillation, unspecified type I48.91 confirmed 23525174 Problem Type 2 diabetes mellitus with diabetic neuropathy, unspecified E11.40 confirmed 82517053 19 107 Problem Neuropathy G62.9 confirmed 745692945 Problem Stage 3 chronic kidney disease, unspecified whether stage 3a or 3b CKD N18.30 confirmed 726754549 Problem Falling R29.6 confirmed 666548021 Problem Type 2 diabetes mellitus with hyperglycemia E11.65 confirmed 09467383 Problem Gastroesophag eal reflux disease, esophagitis presence not specified K21.9 confirmed 626202593 Problem Anemia of chronic disease D63.8 confirmed 617605634 Problem Essential hypertension I10 confirmed 89642397 Problem Moderate episode of recurrent major depressive disorder F33.1 confirmed 357190287 Problem MCC (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 of insulin Z79.4 confirmed 222895776 Problem Poor memory R41.3 confirmed 80606187 6 Problem Anxiety F41.9 confirmed 85760607 Problem Slow transit constipation K59.01 confirmed 91412646 Problem Chronic obstructive pulmonary disease, unspecified COPD type J44.9 confirmed 25898047 Problem PAD (peripheral artery disease) I73.9 confirmed 998740122 Problem Type 2 diabetes mellitus with other specified complication E11.69 confirmed 58676014 Problem Coronary artery disease involving [place] coronary artery of [place] heart without angina pectoris I25.10 confirmed 01877054 Problem Mental status change resolved Z86.59 confirmed 597689529 Problem Unspecified dementia, unspecified severity, without behavioral disturbance, psychotic disturbance, mood disturbance, and anxiety F03.90 confirmed 18812821 Problem Hypertensive chronic kidney disease w 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 I12.9 confirmed 3174650641 41250 Problem CKD (chronic kidney disease) stage 4, GFR 15-29 ml/min N18.4 confirmed 651649054 Problem Confusion R41.0 confirmed 079127916 Problem Chronic kidney disease, unspecified CKD stage N18.9 confirmed 687994875 Problem Hyperglycemia due to diabetes mellitus E11.65 confirmed 032249195 Problem Chronic kidney disease N18.9 confirmed 425336186 Problem Metabolic encephalopath y G93.41 confirmed 62267628 Problem Type 2 diabetes mellitus with diabetic chronic kidney disease E11.22 confirmed 951220586 Problem Hyperlipidemi a E78.5 confirmed 98372258 ALLERGIES Allergen (clinical drug ingredient) Drug/Non Drug Allergy documented on EMR Reaction Allergy Type Onset Date Status simvastatin Zocor(NDC Code:[address]-88) muscle pain Drug Allergy Active ampicillin Ampicillin(NDC Code:[address]-54) nausea and vomiting Drug Allergy Active Amoxicillin ER hives Drug Allergy Ac tive dulaglutide Trulicity(NDC Code:[address]-11) Unknown Drug Allergy Active lisinopril Lisinopril(NDC Code:[address]-92) Unknown Drug Allergy Active Tetanus Toxoid Adsorbed /swelling Drug Allergy Active ENCOUNTERS from 1950 to 2023-02-19 Encounter Location Date Provider Diagnosis [facility] [address] [facility] [id number] [address] Feb, RAKESH RUSH IMMUNIZATIONS Vaccine Route Administration [...] a day as needed Oct, Active Assure [place] - as directed In Vitro 4 times [...] 30 days Jul, Active REASON FOR VISIT STAT bilat Renal US of MEDICAL (GENERAL) HISTORY Type Description Date Medical [...] Details Provider Name:KAVON Vang, 2023-03-22 12:20:00 AM, [address] [place] [address], [id number], Insurance Providers Payer Name Payer Address Payer Phone Insured Name Patient Relationship to Insured Coverage Start Date Coverage End Date Subscriber Number Group Number [employer] MEDICARE Part A [address] [place] [address] Latonia Chou Self - patient is the insured [id number] [employer] [address] [facility] [address] EffieLatonia ríos Self - patient is the insured [id number] Human Medicare [place] Plan [address] [address] [facility] [address] Latonia Chou Self - patient is the insured [id number] NON [facility] [employer] [address] [facility] [address] Latonia Chou S Self - patient is the insured [id number] [address] [facility] [phone] Latonia Chou S Self - patient is the insured [id number]
--- OUTSIDE RECORDS SUMMARY | 2023-03-14 00:06 | XMS REPORT ---
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 confirmed 530143308 Problem PVD (peripheral vascular disease) I73.9 confirmed 915934107 Problem Stasis dermatitis of both legs I87.2 confirmed 02358239 Problem Other chronic pain G89.29 confirmed 25125549 Problem Irritable bowel syndrome with diarrhea K58.0 confirmed 430830523 Problem COPD exacerbation J44.1 confirmed 433290994 Problem Hypertriglyce ridemia E78.1 confirmed 211066115 Problem Personality disorder in adult F60.9 confirmed 19431917 Problem assisted resident Z59.3 Mar, confirmed 450378128 Problem Episode of recurrent major depressive disorder, unspecified depression episode severity F33.9 confirmed 414820748 Problem Atrial fibrillation, unspecified type I48.91 confirmed 61495046 Problem Type 2 diabetes mellitus with diabetic neuropathy, unspecified E11.40 confirmed 25012639 19 107 Problem Neuropathy G62.9 confirmed 299254522 Problem Stage 3 chronic kidney disease, unspecified whether stage 3a or 3b CKD N18.30 confirmed 748206927 Problem Falling R29.6 confirmed 445100999 Problem Type 2 diabetes mellitus with hyperglycemia E11.65 confirmed 85063057 Problem Gastroesophag eal reflux disease, esophagitis presence not specified K21.9 confirmed 294821987 Problem Anemia of chronic disease D63.8 confirmed 237652572 Problem Essential hypertension I10 confirmed 10278543 Problem Moderate episode of recurrent major depressive disorder F33.1 confirmed 934919299 Problem FDC (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 of insulin Z79.4 confirmed 314202099 Problem Poor memory R41.3 confirmed 29636502 6 Problem Anxiety F41.9 confirmed 18119062 Problem Slow transit constipation K59.01 confirmed 13794225 Problem Chronic obstructive pulmonary disease, unspecified COPD type J44.9 confirmed 63917742 Problem PAD (peripheral artery disease) I73.9 confirmed 552605579 Problem Type 2 diabetes mellitus with other specified complication E11.69 confirmed 92649016 Problem Coronary artery disease involving creek coronary artery of creek heart without angina pectoris I25.10 confirmed 87013658 Problem Mental status change resolved Z86.59 confirmed 011816416 Problem Unspecified dementia, unspecified severity, without behavioral disturbance, psychotic disturbance, mood disturbance, and anxiety F03.90 confirmed 12422334 Problem Hypertensive chronic kidney disease w 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 I12.9 confirmed 1054212562 54241 Problem CKD (chronic kidney disease) stage 4, GFR 15-29 ml/min N18.4 confirmed 355526092 Problem Confusion R41.0 confirmed 983480703 Problem Chronic kidney disease, unspecified CKD stage N18.9 confirmed 916480907 Problem Hyperglycemia due to diabetes mellitus E11.65 confirmed 441740636 Problem Chronic kidney disease N18.9 confirmed 196728699 Problem Metabolic encephalopath y G93.41 confirmed 83975488 Problem Type 2 diabetes mellitus with diabetic chronic kidney disease E11.22 confirmed 323814907 Problem Hyperlipidemi a E78.5 confirmed 63910773 ALLERGIES Allergen (clinical drug ingredient) Drug/Non Drug Allergy documented on EMR Reaction Allergy Type Onset Date Status simvastatin Zocor(NDC Code:[address]-06) muscle pain Drug Allergy Active ampicillin Ampicillin(NDC Code:[address]-03) nausea and vomiting Drug Allergy Active Amoxicillin ER hives Drug Allergy Ac tive dulaglutide Trulicity(NDC Code:[address]-60) Unknown Drug Allergy Active lisinopril Lisinopril(NDC Code:[address]-12) Unknown Drug Allergy Active Tetanus Toxoid Adsorbed /swelling Drug Allergy Active ENCOUNTERS from 1950 to 2023-02-22 Encounter Location Date Provider Diagnosis [facility] [address] [facility] [id number] [address] Feb, RAKESH RUSH IMMUNIZATIONS Vaccine Route Administration Date Status zostavax [...] 13 (history) Unknown May 24, 2016 [facility] FUNDED FLUCELVAX QUADR IVALENT [...] a day as needed Oct, Active Assure [place] - as directed In Vitro 4 times [...] 30 days Jul, Active REASON FOR VISIT FYI only MEDICAL (GENERAL) HISTORY Type Description Date Medical [...] Details Provider Name:KAVON Vang, 2023-03-22 12:20:00 AM, [facility] [place], [place], [id number], Insurance Providers Payer Name Payer Address Payer Phone Insured Name Patient Relationship to Insured Coverage Start Date Coverage End Date Subscriber Number Group Number [employer] Medicare HMO [place] Plan [address] [address] [facility] [phone] Latonia Chou Yoav Self - patient is the insured [id number] [facility] [address] [facility] [phone] Latonia Chou S Self - patient is the insured [id number] NON [facility] [employer] [address] [facility] [address] Latonia Chou S Self - patient is the insured [id number] [employer] 19 [address] [facility] [phone] Latonia Chou Self - patient is the insured [id number] [employer] MEDICARE Part A [address] [place] [address] Latonia Chou Self - patient is the insured [id number]
--- OUTSIDE RECORDS SUMMARY | 2023-03-14 00:06 | XMS REPORT ---
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 Z79.4 confirmed 249576012 Problem PVD (peripheral vascular disease) I73.9 confirmed 633519406 Problem Stasis dermatitis of both legs I87.2 confirmed 50995337 Problem Other chronic pain G89.29 confirmed 86938553 Problem Irritable bowel syndrome with diarrhea K58.0 confirmed 678006942 Problem COPD exacerbation J44.1 confirmed 626339089 Problem Hypertriglyce ridemia E78.1 confirmed 860609436 Problem Personality disorder in adult F60.9 confirmed 19246040 Problem retirement resident Z59.3 Mar, confirmed 186316517 Problem Episode of recurrent major depressive disorder, unspecified depression episode severity F33.9 confirmed 562904816 Problem Atrial fibrillation, unspecified type I48.91 confirmed 03432715 Problem Type 2 diabetes mellitus with diabetic neuropathy, unspecified E11.40 confirmed 30275971 19 107 Problem Neuropathy G62.9 confirmed 881093543 Problem Stage 3 chronic kidney disease, unspecified whether stage 3a or 3b CKD N18.30 confirmed 788826944 Problem Falling R29.6 confirmed 585895340 Problem Type 2 diabetes mellitus with hyperglycemia E11.65 confirmed 26094479 Problem Gastroesophag eal reflux disease, esophagitis presence not specified K21.9 confirmed 574878411 Problem Anemia of chronic disease D63.8 confirmed 871513206 Problem Essential hypertension I10 confirmed 89706178 Problem Moderate episode of recurrent major depressive disorder F33.1 confirmed 945978128 Problem USP (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 of insulin Z79.4 confirmed 979727152 Problem Poor memory R41.3 confirmed 37640325 6 Problem Anxiety F41.9 confirmed 77355550 Problem Slow transit constipation K59.01 confirmed 91284720 Problem Chronic obstructive pulmonary disease, unspecified COPD type J44.9 confirmed 90775302 Problem PAD (peripheral artery disease) I73.9 confirmed 470826331 Problem Type 2 diabetes mellitus with other specified complication E11.69 confirmed 83494204 Problem Coronary artery disease involving [place] coronary artery of [place] heart without angina pectoris I25.10 confirmed 44766213 Problem Mental status change resolved Z86.59 confirmed 921773651 Problem Unspecified dementia, unspecified severity, without behavioral disturbance, psychotic disturbance, mood disturbance, and anxiety F03.90 confirmed 95085059 Problem Hypertensive chronic kidney disease w 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 I12.9 confirmed 0811807036 72870 Problem CKD (chronic kidney disease) stage 4, GFR 15-29 ml/min N18.4 confirmed 057920012 Problem Confusion R41.0 confirmed 896160231 Problem Chronic kidney disease, unspecified CKD stage N18.9 confirmed 077112853 Problem Hyperglycemia due to diabetes mellitus E11.65 confirmed 383827508 Problem Chronic kidney disease N18.9 confirmed 858045802 Problem Metabolic encephalopath y G93.41 confirmed 26611153 Problem Type 2 diabetes mellitus with diabetic chronic kidney disease E11.22 confirmed 198881166 Problem Hyperlipidemi a E78.5 confirmed 33702923 ALLERGIES Allergen (clinical drug ingredient) Drug/Non Drug Allergy documented on EMR Reaction Allergy Type Onset Date Status simvastatin Zocor(NDC Code:[address]-36) muscle pain Drug Allergy Active ampicillin Ampicillin(NDC Code:[address]-40) nausea and vomiting Drug Allergy Active Amoxicillin ER hives Drug Allergy Ac tive dulaglutide Trulicity(NDC Code:[address]-51) Unknown Drug Allergy Active lisinopril Lisinopril(NDC Code:[address]-82) Unknown Drug Allergy Active Tetanus Toxoid Adsorbed /swelling Drug Allergy Active ENCOUNTERS from 1950 to 2023-02-25 Encounter Location Date Provider Diagnosis [facility] [address] [facility] [id number] [address] Feb, RAKESH RUSH IMMUNIZATIONS Vaccine Route Administration [...] a day as needed Oct, Active Assure [place] - as directed In Vitro 4 times [...] 30 days Jul, Active REASON FOR VISIT updated meds from Dr De La Rosa visit MEDICAL (GENERAL) HISTORY Type Description Date Medical [...] Details Provider Name:KAVON Vang, 2023-03-22 12:20:00 AM, [address] [place] [address], [id number], Insurance Providers Payer Name Payer Address Payer Phone Insured Name Patient Relationship to Insured Coverage Start Date Coverage End Date Subscriber Number Group Number [employer] 19 [address] [facility] [phone] Effie, Latonia S Self - patient is the insured [id number] [employer] Medicare HMO [place] Plan [address] [address] [facility] [phone] Effie Latonia S Self - patient is the insured [id number] [employer] 19 [address] [facility] [address] Saúl Chouribharat Cason Self - patient is the insured [id number] [facility] MEDICARE Part A [address] [place] [address] [phone] Latonia Chou Self - patient is the insured [id number] [address] [facility] [phone] Latonia Chou S Self - patient is the insured [id number]
[2023-03-14] MEDS: RT-ALBUTEROL SULF 2.5 MG/3 ML PRE-MIX VIAL INH SCH ×6 (02:25→23:07)
[2023-03-14 04:35] LABS: BASOPHILS % (AUTO) 0 % (0-10); EOSINOPHILS % (AUTO) 0 % (0-10); HEMATOCRIT 35 % (35-52); HEMOGLOBIN 11.2 g/dL (11.5-16.0); LYMPHOCYTES # (AUTO) 0.5 10^3/uL (1.0-4.0); LYMPHOCYTES % (AUTO) 5 % (12-44); MEAN CORPUSCULAR HEMOGLOBIN 27 pg (25-34); MEAN CORPUSCULAR HGB CONC 32 g/dL (32-36); MEAN CORPUSCULAR VOLUME 85 fL (80-99); MEAN PLATELET VOLUME 10.9 fL (9.0-12.2); MONOCYTES # (AUTO) 0.1 10^3/uL (0.0-1.0); MONOCYTES % (AUTO) 1 % (0-12); NEUTROPHILS # (AUTO) 10.8 10^3/uL (1.8-7.8); NEUTROPHILS % (AUTO) 93 % (42-75); PLATELET COUNT 131 10^3/uL (130-400); WHITE BLOOD COUNT 11.6 10^3/uL (4.3-11.0)
[2023-03-14 04:51] LABS: ABG BASE EXCESS -5.7 MMOL/L (-2.5-2.5); ABG OXYGEN SATURATION 99 % (94-100); ABG PCO2 36 MMHG (35-45); ABG PO2 135 MMHG (79-93); ABG TCO2 20.5 MMOL/L (21.0-31.0)
[2023-03-14 04:52] LABS: INSPIRED O2 35%; VENTILATOR NO
[2023-03-14 04:53] LABS: ABG PH 7.34 (7.37-7.43)
[2023-03-14 05:01] LABS: ALBUMIN 3.3 GM/DL (3.2-4.5); BILIRUBIN,TOTAL 0.4 MG/DL (0.1-1.0); CALCIUM 8.2 MG/DL (8.5-10.1); CREATININE SERUM 1.98 MG/DL (0.60-1.30); POTASSIUM 4.1 MMOL/L (3.6-5.0); TOTAL PROTEIN 6.1 GM/DL (6.4-8.2)
--- NOTE | 2023-03-14 05:27 | History & Physical-Hospitalist ---
History of Present Illness HPI/Chief Complaint CC: AMS with acute resp failure requiring biPAP HPI: This is a 72yoWF [place] patient of [facility] who presented to the ER with AMS and found to be in acute resp failure requiring biPAP and treatment for AECOPD along with PNA initiated. Currently she is off biPAP and back to her baseline mentation. Hyperglycemia from IV steroids are noted so aggressive insulin initiated. Source: patient Exam Limitations: other (dementia ) Date Seen 03/14/23 Time Seen by a Provider: 10:00 Attending Physician [place] PCP Admitting Physician: Vesta Arango DO Attending Physician: Vesta Arango DO Referring Physician Date of Admission Mar 13, 2023 at 18:35 Home Medications & Allergies Home Medications Reviewed patient Home Medication Reconciliation performed by pharmacy medication reconciliations communications technician and/or nursing. Patients Allergies have been reviewed. Allergies Allergies Coded Allergies Tetanus Vaccines and Toxoid (Unverified Allergy, Severe, 12/17/11) SWOLLEN HOT RED ARM ampicillin (Unverified Allergy, Unknown, 12/20/15) dulaglutide (Unverified Allergy, Unknown, 06/16/21) Past Ybvlhvy-Hxmpjy-Hvyuwe Hx Patient Social History Marrital Status: single Employed/Student: unemployed Tobacco Use?: No Smoking Status: Unknown if Ever Smoked Smokeless Tobacco Frequency: Unknown if Ever Used Use of E-Cig and/or Vaping dev: Unable to obtain Substance use?: Unable to obtain Alcohol Use?: Unable to obtain Pt feels they are or have been: Unable to obtain Immunizations Up To Date Date of Influenza Vaccine: Nov 05, 2018 Tetanus Booster (TDap): Unknown Hepatitis A: No Hepatitis B: No PED Vaccines UTD: No Date of Pneumonia Vaccine: Dec 04, 2014 Seasonal Allergies Seasonal Allergies: No Current Status status: Unable to obtain status: Unable to obtain Advance Directives: Unable to obtain Communicates: Verbally Primary Language: Setswana Preferred Spoken Language: Setswana Is interpretation needed?: No Past Medical History Surgeries: Hysterectomy, Vascular Surgery COPD (Uses supplemental O2 via NC) Currently Using CPAP: No Currently Using BIPAP: No Coronary Artery Disease, High Cholesterol, Hypertension, Peripheral Vascular Dementia, Neuropathy 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: Menopausal Renal Failure (CKD), UTI-Chronic Gastroesophageal Reflux Degenerate Disk Disease, Osteoporosis Diabetes, Insulin dep Cataract Loss of Vision: Denies Anxiety Blood Disorders: No Family Medical History Arthritis G8 SISTER G8 SISTER Cataracts 19 MOTHER Diabetes mellitus G8 SISTER FH: COPD (chronic obstructive pulmonary disease) 19 MOTHER FH: CVA (cerebrovascular accident) 19 FATHER FH: heart attack 19 FATHER Glaucoma 19 MOTHER Hypercholesterolemia 19 FATHER Hypertension 19 FATHER No Pertinent Family Hx Review of Systems Constitutional: see HPI Respiratory: dyspnea on exertion Physical Exam Physical Exam Vital Signs Vital Signs - First Documented 03/13/23 03/13/23 15:02 21:42 Temp 39.5 Pulse 86 Resp 22 B/P (MAP) 168/56 (93) Pulse Ox 98 O2 Delivery Nasal Cannula O2 Flow Rate 2.00 FiO2 45 Capillary Refill : Height, Weight, BMI Height: 5'5.00" Weight: 164lbs. 6.4oz. 74.757622af; 32.14 BMI Method:Stated General Appearance: No Apparent Distress, Chronically ill, Obese Eyes: Right Eye Normal Inspection, Right Eye PERRL HEENT: PERRL/EOMI, Normal ENT Inspection, Pharynx Normal, Moist Mucous Membranes Neck: Full Range of Motion, Normal Inspection, Non Tender Respiratory: Chest Non Tender, Lungs Clear, No Accessory Muscle Use, No Respiratory Distress, Decreased Breath Sounds Cardiovascular: Regular Rate, Rhythm, No Edema, No Gallop, No JVD, No Murmur, Normal Peripheral Pulses Gastrointestinal: Normal Bowel Sounds, No Organomegaly, No Pulsatile Mass, Non Tender, Soft Back: Normal Inspection, No CVA Tenderness, No Vertebral Tenderness Extremity: Normal Capillary Refill, Normal Inspection, Normal Range of Motion, Non Tender, No Calf Tenderness, No Pedal Edema Neurologic/Psychiatric: Alert, No Motor/Sensory Deficits, Normal Mood/Affect, Disoriented Skin: Normal Color, Warm/Dry Lymphatic: No Adenopathy Results Results/Procedures Labs Laboratory Tests 03/13/23 15:08 03/14/23 04:17 Patient resulted labs reviewed. Assessment/Plan Admission Diagnosis Assessment: Acute hypoxic resp failure requiring biPAP PNA HAP type DM OOC due to steroids Dementia Plan: ICU Insulin IV abx Decrease steroids Admission Status: Inpatient Order (span 2 midnights) Reason for Inpatient Admission: resp failure Clinical Quality Measures DVT/VTE Risk/Contraindication: Contraindications-Mechi: Other *list below* Other: poss dvt VESTA ARANGO DO Mar 14, 2023 05:27
[2023-03-14] MEDS: LACTATED RINGERS 1,000 ML 1,000 ML IV SCH (06:04)
[2023-03-14] MEDS: CEFEPIME 1,000 MG/NS 50 ML IVPB IV SCH ×4 (06:15→17:16)
[2023-03-14] MEDS ORDERED: inSUlin DETERMIR 1 UNIT/0.01 ML (CHARGE PER UNIT) SQ ONE (06:15)
[2023-03-14] MEDS ORDERED: inSUlin (REGULAR) HUMAN 1 UNIT/0.01 ML (CHARGE PER UNIT) SC ONE (06:15)
--- NOTE | 2023-03-14 06:16 | Tele-ICU Progress Note ---
Progress Note Bedside nurse called. She verified elevated glucose on blood draw Hyperglycemia, I ordered Levemir 10 U an novolog R 12 Units. Focused Exam Lactate Level 03/13/23 15:08: Lactic Acid Level 1.67 Height, Weight, BMI Height: 5'5.00" Weight: 164lbs. 6.4oz. 74.121416qu; 32.14 BMI Method:Stated Time of Focused Exam: 17:50 SVETLANA VICTOR MD Mar 14, 2023 06:16
[2023-03-14] MEDS: POTASSIUM CL 10MEQ/50ML IVPB 50 ML IV SCH (06:18)
[2023-03-14] MEDS: MAGNESIUM 1 GM/100 ML IVPB 100 ML IV SCH (06:18)
[2023-03-14] MEDS: POTASSIUM CHLORIDE 20 MEQ TABLET PO SCH (06:19)
[2023-03-14] MEDS: inSUlin ASPART 1 UNIT/0.01 ML (PER UNIT) SC SCH ×4 (06:27→21:05)
[2023-03-14] MEDS ORDERED: inSUlin ASPART 1 UNIT/0.01 ML (PER UNIT) SC ONE (06:30)
[2023-03-14] MEDS: DOCUSATE SODIUM 100 MG CAPSULE PO SCH ×2 (07:51→21:05)
[2023-03-14] MEDS: SENNOSIDES 8.6 MG TABLET PO SCH ×2 (07:51→21:05)
[2023-03-14] MEDS: dexAMETHasone INJ 4 MG/ML SDV IV SCH ×2 (08:28→21:05)
[2023-03-14] MEDS: PANTOPRAZOLE INJECTION 40 MG VIAL IV SCH (08:28)
--- NOTE | 2023-03-14 09:56 | Tele-ICU Progress Note ---
Subjective Date Seen by a Provider: Mar 14, 2023 Time Seen by a Provider: 09:56 Subjective/Events-last exam (Tele-ICU Physician , Progress Note ) Service provided via interactive audio and video telecommunications E-CARE system to a patient admitted to ICU bed in [facility]. Patient is seen today due to persistent need of ICU care Available chart/ vitals / labs / Images reviewed Video assessment done using teleICU camera, rest of exam as per RN Discussed with RN Events overnight : Afebrile hemodynamically stable Respiratory - 4l I/O = ++ Drips: lr 50 Pressors- no Hospital course: A/P AMS change - better -CTH neg 03/13 UTI / cellulitis - resonded to IVF hydration, still tachycardic - cont IVF - cont abx Acute hypoxic resp failure -on BIPAP last night - now on 4 L nc AECOPD - nebs , steroids to decrease KISHOR/ ckd - monitor UO Hyperglycemia with steroids / DM - ISS - adjust insulin Anemia - delutional ? Lines : , (Central Line Necessity Reviewed) Slater: 03/14 OG: Nutrition: po Analgesia: Anxiety/ delirium VTE Prophylaxis: guillermo Stress Ulcer Prophylaxis: na Plans in collaboration with bedside consultants and IM MDs. Discussed with RN to reach out if any questions or concerns Case and care daily discussed on multidisciplinary rounds ( RN, PharmD, Chief Pilot , Respiratory Therapy, barn worker ) A total of 22 minutes of critical care time was devoted to this patient today, required to treat and/or prevent further deterioration of critical care condition ( as above ) . I am remotely monitoring this patient from another state. I am unable to do the bedside exam, and history/physical and pertinent information is taken from other notes in the computer and bedside staff. Sepsis Event Evaluation Height, Weight, BMI Height: 5'5.00" Weight: 164lbs. 6.4oz. 74.401179be; 32.14 BMI Method:Stated Focused Exam Lactate Level 03/13/23 15:08: Lactic Acid Level 1.67 Time of Focused Exam: 17:50 Exam Exam Patient acknowledged, consented, and participated in this virtual visit which was conducted using real time audio/video Vital Signs Date Time Temp Pulse Resp B/P (MAP) Pulse Ox O2 Delivery O2 Flow Rate FiO2 03/14/23 09:00 102 16 114/75 (87) 95 NIV Bilevel 35.00 03/14/23 08:00 94 Nasal Cannula 2.00 03/14/23 08:00 38.0 03/14/23 08:00 97 16 107/69 (83) 97 NIV Bilevel 35.00 03/14/23 07:00 95 03/14/23 07:00 96 16 89/61 (70) 97 NIV Bilevel 35.00 03/14/23 06:28 100 25 97 35.00 03/14/23 06:00 96 21 97 NIV Bilevel 35.00 03/14/23 05:00 101 13 106/69 (81) 97 NIV Bilevel 35.00 03/14/23 04:00 93 24 80/57 (65) 97 NIV Bilevel 35.00 03/14/23 03:29 NIV Bilevel 35.00 03/14/23 03:29 96 NIV Bilevel 35 03/14/23 03:00 93 20 90/61 (71) 97 NIV Bilevel 45.00 03/14/23 02:26 85 22 96 35.00 03/14/23 02:00 87 21 85/55 (65) 96 NIV Bilevel 45.00 03/14/23 01:00 87 21 88/61 (70) 96 NIV Bilevel 45.00 03/14/23 00:12 89 03/14/23 00:00 90 23 83/57 (66) 97 NIV Bilevel 45.00 03/14/23 00:00 96 NIV Bilevel 35 03/14/23 00:00 36.8 03/13/23 23:00 93 23 80/40 (53) 96 NIV Bilevel 45.00 03/13/23 22:00 96 13 88/62 (71) 98 NIV Bilevel 45.00 03/13/23 21:56 90 23 98 45.00 03/13/23 21:42 37.0 93 98 45 03/13/23 21:00 93 24 79/55 (63) 98 NIV Bilevel 45.00 03/13/23 20:00 94 13 89/64 (72) 98 NIV Bilevel 45.00 03/13/23 20:00 37.0 03/13/23 19:35 93 03/13/23 19:30 98 NIV Bilevel 03/13/23 19:00 96 22 89/65 (73) 97 NIV Bilevel 03/13/23 18:48 103 03/13/23 18:40 105 32 100 45.00 03/13/23 18:20 38.2 105 36 142/99 100 NIV Bilevel 03/13/23 18:00 107 29 103/73 (83) 100 NIV Bilevel 03/13/23 17:00 96 31 87/54 (65) 100 NIV Bilevel 03/13/23 16:40 97 40 100 45.00 03/13/23 16:19 38.3 96 22 114/61 (78) 100 OxyMask 2.00 03/13/23 16:19 99 Nasal Cannula 2.00 03/13/23 15:53 38.3 03/13/23 15:53 39.5 03/13/23 15:10 98 Nasal Cannula 2.00 03/13/23 15:02 39.5 86 22 168/56 (93) 98 Nasal Cannula 2.00 I & O 03/14/23 07:00 Intake Total 2600 ml Output Total 1250 ml Balance 1350 ml Height & Weight Height: 5'5.00" Weight: 164lbs. 6.4oz. 74.260236xt; 32.14 BMI Method:Stated General Appearance: WD/WN, Moderate Distress (Respiratory wheezing and increased WOB), Obese HEENT: PERRL/EOMI, Normal ENT Inspection Neck: Normal Inspection; No JVD Respiratory: No Crackles; Wheezing (Slight wheezing with significant improvement), Other (On BiPAP) Cardiovascular: Regular Rate, Rhythm, No Edema, No Murmur Extremity: Other (Bilateral lower extremity edema with chronic skin changes. Erythema bilaterally is greater on the left than the right. Degree of swelling is greater on the left than the right.) Neurologic/Psychiatric: Other (Responsive to voice. Responses do not necessarily make sense. She is not conversational.) Results Lab Laboratory Tests 03/13/23 15:08 03/14/23 04:17 Assessment/Plan Assessment/Plan 1 GISSELL RIOS MD Mar 14, 2023 09:56
[2023-03-14] MEDS ORDERED: inSUlin DETERMIR 1 UNIT/0.01 ML (CHARGE PER UNIT) SQ NR (10:00)
--- NOTE | 2023-03-14 11:10 | Diagnostic Imaging Report ---
INDICATION: Shortness of breath. Comparison is made with prior examination of 03/13/2023. FINDINGS: There is mild cardiomegaly. Lungs are clear. There is no pleural effusion or pneumothorax. Mediastinum is unremarkable. IMPRESSION: Mild cardiomegaly; however, no other acute cardiopulmonary abnormality. Dictated by: Dictated on workstation # [id number]
[2023-03-14] MEDS: ENOXAPARIN 40 MG/0.4 ML SYRINGE SC SCH (12:04)
[2023-03-14] MEDS: inSUlin (REGULAR) HUMAN 1 UNIT/0.01 ML (CHARGE PER UNIT) SC SCH ×3 (12:04→21:05)
[2023-03-14] MEDS: inSUlin DETERMIR 1 UNIT/0.01 ML (CHARGE PER UNIT) SQ SCH (21:04)
[2023-03-14] MEDS: MICONAZOLE 2% POWDER 90 GM TOP SCH (21:06)
[2023-03-15] MEDS: RT-ALBUTEROL SULF 2.5 MG/3 ML PRE-MIX VIAL INH SCH ×6 (02:26→21:56)
[2023-03-15] MEDS: LACTATED RINGERS 1,000 ML 1,000 ML IV SCH (02:26)
[2023-03-15] MEDS: CEFEPIME 1,000 MG/NS 50 ML IVPB IV SCH ×6 (05:28→21:06)
[2023-03-15 05:33] LABS: BASOPHILS % (AUTO) 0 % (0-10); EOSINOPHILS % (AUTO) 0 % (0-10); HEMOGLOBIN 11.9 g/dL (11.5-16.0)
[2023-03-15 05:35] LABS: HEMATOCRIT 37 % (35-52); LYMPHOCYTES # (AUTO) 0.9 10^3/uL (1.0-4.0); LYMPHOCYTES % (AUTO) 6 % (12-44); MEAN CORPUSCULAR HEMOGLOBIN 27 pg (25-34); MEAN CORPUSCULAR HGB CONC 32 g/dL (32-36); MEAN CORPUSCULAR VOLUME 84 fL (80-99); MEAN PLATELET VOLUME 10.6 fL (9.0-12.2); MONOCYTES # (AUTO) 0.5 10^3/uL (0.0-1.0); MONOCYTES % (AUTO) 3 % (0-12); NEUTROPHILS # (AUTO) 15.2 10^3/uL (1.8-7.8); NEUTROPHILS % (AUTO) 90 % (42-75); PLATELET COUNT 127 10^3/uL (130-400); WHITE BLOOD COUNT 16.8 10^3/uL (4.3-11.0)
[2023-03-15 05:50] LABS: ALBUMIN 3.5 GM/DL (3.2-4.5); BILIRUBIN,TOTAL 0.3 MG/DL (0.1-1.0); CALCIUM 8.8 MG/DL (8.5-10.1); CREATININE SERUM 1.54 MG/DL (0.60-1.30); MAGNESIUM 2.5 MG/DL (1.6-2.4); POTASSIUM 3.9 MMOL/L (3.6-5.0); TOTAL PROTEIN 6.6 GM/DL (6.4-8.2)
[2023-03-15] MEDS: MAGNESIUM 1 GM/100 ML IVPB 100 ML IV SCH (05:57)
[2023-03-15] MEDS: POTASSIUM CL 10MEQ/50ML IVPB 50 ML IV SCH (05:57)
[2023-03-15] MEDS: POTASSIUM CHLORIDE 20 MEQ TABLET PO SCH (05:58)
[2023-03-15] MEDS: inSUlin (REGULAR) HUMAN 1 UNIT/0.01 ML (CHARGE PER UNIT) SC SCH ×4 (06:25→21:05)
[2023-03-15] MEDS: inSUlin ASPART 1 UNIT/0.01 ML (PER UNIT) SC SCH ×4 (06:25→21:05)
--- NOTE | 2023-03-15 06:48 | Progress Note - Hospitalist ---
Subjective HPI/CC On Admission Date Seen by Provider: Mar 15, 2023 Time Seen by Provider: 11:00 CC: AMS with acute resp failure requiring biPAP HPI: This is a 72yoWF [place] patient of [facility] who presented to the ER with AMS and f ound to be in acute resp failure requiring biPAP and treatment for AECOPD along with PNA initiated. Currently she is off biPAP and back to her baseline mentation. Hyperglycemia from IV steroids are noted so aggressive insulin initiated. Subjective/Events-last exam Patient doing much better Blood sugars much better Tachycardia is chronic given metoprolol home dose Reviewed meds and labs Review of Systems General: Fatigue Focused Exam Lactate Level 03/13/23 15:08: Lactic Acid Level 1.67 Time of Focused Exam: 17:50 Objective Exam Vital Signs Vital Signs Date Time Temp Pulse Resp B/P (MAP) Pulse Ox O2 Delivery O2 Flow Rate FiO2 03/15/23 15:09 94 Nasal Cannula 1.00 03/15/23 13:00 101 03/15/23 11:10 36.4 03/15/23 11:00 19 03/14/23 03:29 35 Capillary Refill : General Appearance: No Apparent Distress, WD/WN, Chronically ill Respiratory: No Accessory Muscle Use, No Respiratory Distress, Decreased Breath Sounds Cardiovascular: Regular Rate, Rhythm, Tachycardia Neurologic/Psychiatric: Alert, Oriented x3, Disoriented (Baseline) Results/Procedures Lab Laboratory Tests 03/15/23 04:30 Patient resulted labs reviewed. Assessment/Plan Assessment and Plan Assess & Plan/Chief Complaint Assessment: Acute hypoxic resp failure requiring biPAP PNA HAP type DM OOC due to steroids Dementia Plan: Moved to fourth floor Insulin IV abx Decrease steroids Clinical Quality Measures DVT/VTE Risk/Contraindication: Contraindications-Mechi: Other *list below* Other: poss dvt GUADALUPE AUSTIN DO Mar 15, 2023 06:48
[2023-03-15] MEDS: DOCUSATE SODIUM 100 MG CAPSULE PO SCH ×2 (08:23→21:05)
[2023-03-15] MEDS: dexAMETHasone INJ 4 MG/ML SDV IV SCH ×2 (08:23→21:05)
[2023-03-15] MEDS: PANTOPRAZOLE INJECTION 40 MG VIAL IV SCH (08:24)
[2023-03-15] MEDS: SENNOSIDES 8.6 MG TABLET PO SCH ×2 (08:24→21:05)
[2023-03-15] MEDS: MICONAZOLE 2% POWDER 90 GM TOP SCH ×2 (08:24→21:06)
[2023-03-15] MEDS ORDERED: POTASSIUM CHLORIDE 20 MEQ TABLET PO ONE (09:00)
--- NOTE | 2023-03-15 09:07 | Diagnostic Imaging Report ---
INDICATION: Respiratory failure Frontal chest obtained at 0112 a.m. There is cardiomegaly. There is central vascular congestion with interstitial edema. There is no pneumothorax or pleural fluid or alexus consolidation. IMPRESSION: Cardiomegaly with central vascular congestion and interstitial edema with no consolidation or pneumothorax or pleural fluid. Dictated by: Dictated on workstation # [id number]
[2023-03-15] MEDS: ENOXAPARIN 40 MG/0.4 ML SYRINGE SC SCH (10:05)
--- NOTE | 2023-03-15 10:23 | Tele-ICU Progress Note ---
Subjective Date Seen by a Provider: Mar 15, 2023 Time Seen by a Provider: 10:20 Subjective/Events-last exam (Tele-ICU Physician , Progress Note ) Service provided via interactive audio and video telecommunications E-CARE system to a patient admitted to ICU bed in [facility]. Patient is seen today due to persistent need of ICU care Available chart/ vitals / labs / Images reviewed Video assessment done using teleICU camera, rest of exam as per RN Discussed with RN Events overnight : Afebrile hemodynamically stable Respiratory - 4l I/O = ++ Drips: lr 50 Pressors- no Hospital course: (03/13) 72F [place] for severe sepsis UTI, LLE cellulitis, AMS, COPD A/P AMS change - better, AAO x1 -CTH neg 03/13 UTI / cellulitis - resonded to IVF hydration - cont abx Sinus tachycardia - resume betblockers po - cont abx Acute hypoxic resp failure -on BIPAP last night - now on 1 L nc AECOPD - nebs , steroids - exp wheezing KISHOR/ ckd - improving - monitor UO Hyperglycemia with steroids / DM - ISS - adjust insulin Anemia - delutional ? Lines : , (Central Line Necessity Reviewed) Slater: 03/14 OG: Nutrition: po Analgesia: Anxiety/ delirium VTE Prophylaxis: guillermo 40 Stress Ulcer Prophylaxis: na Plans in collaboration with bedside consultants and IM MDs. Discussed with RN to reach out if any questions or concerns Case and care daily discussed on multidisciplinary rounds ( RN, PharmD, Brine Plant Operator , Respiratory Therapy, derrick worker ) A total of 22 minutes of critical care time was devoted to this patient today, required to treat and/or prevent further deterioration of critical care condition ( as above ) . I am remotely monitoring this patient from another state. I am unable to do the bedside exam, and history/physical and pertinent information is taken from other notes in the computer and bedside staff. Sepsis Event Evaluation Height, Weight, BMI Height: 5'5.00" Weight: 164lbs. 6.4oz. [id number]; 32.14 BMI Method:Stated Focused Exam Lactate Level 03/13/23 15:08: Lactic Acid Level 1.67 Time of Focused Exam: 17:50 Exam Exam Patient acknowledged, consented, and participated in this virtual visit which was conducted using real time audio/video Vital Signs Date Time Temp Pulse Resp B/P (MAP) Pulse Ox O2 Delivery O2 Flow Rate FiO2 03/15/23 10:09 92 Nasal Cannula 1.00 03/15/23 09:00 118 24 137/79 (98) 97 Nasal Cannula 3.00 03/15/23 08:45 Nasal Cannula 3.00 03/15/23 08:36 Nasal Cannula 4.00 03/15/23 08:00 122 9 119/81 (94) 94 Nasal Cannula 4.00 03/15/23 07:52 36.3 03/15/23 07:16 91 Nasal Cannula 4.00 03/15/23 07:00 120 14 144/69 (94) Nasal Cannula 4.00 03/15/23 07:00 120 03/15/23 06:00 113 8 141/79 (99) 90 Nasal Cannula 4.00 03/15/23 05:00 107 22 132/77 (95) 90 Nasal Cannula 4.00 03/15/23 04:36 36.5 03/15/23 04:00 91 Nasal Cannula 4.00 03/15/23 04:00 107 12 117/76 (90) 92 Nasal Cannula 4.00 03/15/23 03:00 105 22 128/71 (90) 91 Nasal Cannula 4.00 03/15/23 02:26 91 Nasal Cannula 4.00 03/15/23 02:00 105 16 129/63 (85) 91 Nasal Cannula 4.00 03/15/23 01:00 95 34 118/68 (85) 92 Nasal Cannula 4.00 03/15/23 00:15 96 03/15/23 00:00 99 23 115/61 (79) 92 Nasal Cannula 4.00 03/14/23 23:59 91 Nasal Cannula 4.00 03/14/23 23:18 91 Nasal Cannula 4.00 03/14/23 23:00 103 22 117/71 (86) 91 Nasal Cannula 4.00 03/14/23 22:00 99 18 122/63 (82) 92 Nasal Cannula 4.00 03/14/23 21:00 105 10 120/65 (83) 92 Nasal Cannula 4.00 03/14/23 20:00 91 Nasal Cannula 4.00 03/14/23 20:00 108 25 120/63 (82) 91 Nasal Cannula 4.00 03/14/23 20:00 Nasal Cannula 4.00 03/14/23 19:08 92 Nasal Cannula 4.00 03/14/23 19:02 109 03/14/23 19:00 107 9 96/87 (90) 91 Nasal Cannula 4.00 03/14/23 18:00 106 22 126/87 (109) 90 Nasal Cannula 2.00 03/14/23 17:00 99 17 109/67 (81) Nasal Cannula 2.00 03/14/23 16:00 91 Nasal Cannula 4.00 03/14/23 16:00 96 28 108/68 (82) 89 Nasal Cannula 2.00 03/14/23 15:00 96 29 109/71 (94) 89 Nasal Cannula 2.00 03/14/23 14:00 103 10 106/75 (83) 93 Nasal Cannula 2.00 03/14/23 13:55 93 Nasal Cannula 4.00 03/14/23 13:00 98 12 115/72 (77) Nasal Cannula 2.00 03/14/23 12:46 101 03/14/23 12:00 94 Nasal Cannula 4.00 03/14/23 12:00 108 12 101/79 (83) 94 Nasal Cannula 2.00 03/14/23 12:00 37.3 03/14/23 11:00 88 24 94/63 (73) 94 NIV Bilevel 35.00 03/14/23 10:39 94 Nasal Cannula 4.00 I & O 03/15/23 07:00 Intake Total 3005 ml Output Total 3650 ml Balance -645 ml Height & Weight Height: 5'5.00" Weight: 164lbs. 6.4oz. [id number]; 32.14 BMI Method:Stated General Appearance: No Apparent Distress, Chronically ill, Obese HEENT: PERRL/EOMI, Normal ENT Inspection, Pharynx Normal, Moist Mucous Membranes Neck: Full Range of Motion, Normal Inspection, Non Tender Respiratory: Chest Non Tender, Lungs Clear, No Accessory Muscle Use, No Respiratory Distress, Decreased Breath Sounds Cardiovascular: Regular Rate, Rhythm, No Edema, No Gallop, No JVD, No Murmur, Normal Peripheral Pulses Extremity: Normal Capillary Refill, Normal Inspection, Normal Range of Motion, Non Tender, No Calf Tenderness, No Pedal Edema Neurologic/Psychiatric: Alert, No Motor/Sensory Deficits, Normal Mood/Affect, Disoriented Skin: Normal Color, Warm/Dry Lymphatic: No Adenopathy Results Lab Laboratory Tests 03/13/23 15:08 03/14/23 04:17 03/15/23 04:30 Assessment/Plan Assessment/Plan 1 GISSELL RIOS MD Mar 15, 2023 10:23
[2023-03-15] MEDS: meTOprolol TARTRATE (IR) 50 MG TABLET PO SCH ×2 (11:06→21:05)
[2023-03-15] MEDS ORDERED: EMPA25TA PO (13:13)
[2023-03-15] MEDS ORDERED: ALB0.5V INH (13:13)
[2023-03-15] MEDS ORDERED: CEPH500C PO (13:13)
[2023-03-15] MEDS ORDERED: INSU100V42 SQ (13:13)
[2023-03-15] MEDS ORDERED: meTOprolol INJECTION 5 MG/5 ML VIAL IV PRN (13:15)
[2023-03-15 17:30] VITALS: BP 134/69
[2023-03-15 19:25] VITALS: BP 147/83
[2023-03-15] MEDS: inSUlin DETERMIR 1 UNIT/0.01 ML (CHARGE PER UNIT) SQ SCH (21:05)
[2023-03-15 23:33] VITALS: BP 146/81
[2023-03-16] VITALS (7 sets, daily range): BP systolic 141–177; BP diastolic 70–89
[2023-03-16] MEDS: RT-ALBUTEROL SULF 2.5 MG/3 ML PRE-MIX VIAL INH SCH ×6 (02:36→22:26)
[2023-03-16 06:16] LABS: BASOPHILS % (AUTO) 0 % (0-10); EOSINOPHILS % (AUTO) 0 % (0-10); HEMATOCRIT 41 % (35-52); HEMOGLOBIN 13.2 g/dL (11.5-16.0); LYMPHOCYTES # (AUTO) 1.3 10^3/uL (1.0-4.0); LYMPHOCYTES % (AUTO) 8 % (12-44); MEAN CORPUSCULAR HEMOGLOBIN 26 pg (25-34); MEAN CORPUSCULAR HGB CONC 32 g/dL (32-36); MEAN CORPUSCULAR VOLUME 82 fL (80-99); MEAN PLATELET VOLUME 9.6 fL (9.0-12.2); MONOCYTES # (AUTO) 0.9 10^3/uL (0.0-1.0); MONOCYTES % (AUTO) 5 % (0-12); NEUTROPHILS # (AUTO) 14.1 10^3/uL (1.8-7.8); NEUTROPHILS % (AUTO) 86 % (42-75); PLATELET COUNT 143 10^3/uL (130-400); WHITE BLOOD COUNT 16.5 10^3/uL (4.3-11.0)
[2023-03-16] MEDS: inSUlin ASPART 1 UNIT/0.01 ML (PER UNIT) SC SCH ×4 (06:17→19:46)
--- NOTE | 2023-03-16 06:21 | Progress Note - Hospitalist ---
Subjective HPI/CC On Admission Date Seen by Provider: Mar 16, 2023 Time Seen by Provider: 11:00 CC: AMS with acute resp failure requiring biPAP HPI: This is a 72yoWF [place] patient of [facility] who presented to the ER with AMS and f ound to be in acute resp failure requiring biPAP and treatment for AECOPD along with PNA initiated. Currently she is off biPAP and back to her baseline mentation. Hyperglycemia from IV steroids are noted so aggressive insulin initiated. Subjective/Events-last exam Patient doing much better Son at bedside Labs reviewed Blood sugars much improved Lungs are clear Review of Systems General: Fatigue, Malaise Neurological: Change in speech Focused Exam Lactate Level Time of Focused Exam: 17:50 Objective Exam Vital Signs Vital Signs Date Time Temp Pulse Resp B/P (MAP) Pulse Ox O2 Delivery O2 Flow Rate FiO2 03/17/23 03:32 36.2 96 20 158/73 (101) 96 Nasal Cannula 3.00 3.00 03/14/23 03:29 35 Capillary Refill : General Appearance: No Apparent Distress, WD/WN, Chronically ill Respiratory: Lungs Clear, Normal Breath Sounds Cardiovascular: Regular Rate, Rhythm Neurologic/Psychiatric: Alert, Disoriented Results/Procedures Lab Laboratory Tests 03/16/23 05:59 03/17/23 05:25 Patient resulted labs reviewed. 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
[2023-03-16 06:29] LABS: ALBUMIN 3.7 GM/DL (3.2-4.5); BILIRUBIN,TOTAL 0.6 MG/DL (0.1-1.0); CALCIUM 9.5 MG/DL (8.5-10.1); CREATININE SERUM 1.4 MG/DL (0.60-1.30); MAGNESIUM 2.6 MG/DL (1.6-2.4); POTASSIUM 4.2 MMOL/L (3.6-5.0)
[2023-03-16] MEDS: POTASSIUM CL 10MEQ/50ML IVPB 50 ML IV SCH (06:32)
[2023-03-16] MEDS: POTASSIUM CHLORIDE 20 MEQ TABLET PO SCH (06:32)
[2023-03-16] MEDS: MAGNESIUM 1 GM/100 ML IVPB 100 ML IV SCH (06:32)
[2023-03-16] MEDS: inSUlin (REGULAR) HUMAN 1 UNIT/0.01 ML (CHARGE PER UNIT) SC SCH ×4 (06:39→21:25)
[2023-03-16] MEDS: CEFEPIME 1,000 MG/NS 50 ML IVPB IV SCH ×6 (06:42→21:24)
[2023-03-16] MEDS: PANTOPRAZOLE INJECTION 40 MG VIAL IV SCH (07:37)
[2023-03-16] MEDS: meTOprolol TARTRATE (IR) 50 MG TABLET PO SCH ×2 (07:37→21:24)
[2023-03-16] MEDS: dexAMETHasone INJ 4 MG/ML SDV IV SCH ×2 (07:37→21:24)
[2023-03-16] MEDS: SENNOSIDES 8.6 MG TABLET PO SCH ×2 (07:37→21:17)
[2023-03-16] MEDS: MICONAZOLE 2% POWDER 90 GM TOP SCH ×2 (07:37→21:24)
[2023-03-16] MEDS: DOCUSATE SODIUM 100 MG CAPSULE PO SCH ×2 (07:38→19:19)
[2023-03-16] MEDS: ENOXAPARIN 40 MG/0.4 ML SYRINGE SC SCH (09:43)
[2023-03-16] MEDS: inSUlin DETERMIR 1 UNIT/0.01 ML (CHARGE PER UNIT) SQ SCH (21:25)
[2023-03-17] VITALS (7 sets, daily range): BP systolic 118–180; BP diastolic 73–92
[2023-03-17] MEDS: RT-ALBUTEROL SULF 2.5 MG/3 ML PRE-MIX VIAL INH SCH ×5 (02:58→21:49)
[2023-03-17 05:34] LABS: BASOPHILS % (AUTO) 0 % (0-10); EOSINOPHILS % (AUTO) 0 % (0-10); HEMATOCRIT 41 % (35-52); HEMOGLOBIN 13.6 g/dL (11.5-16.0); LYMPHOCYTES # (AUTO) 1.6 10^3/uL (1.0-4.0); LYMPHOCYTES % (AUTO) 12 % (12-44); MEAN CORPUSCULAR HEMOGLOBIN 27 pg (25-34); MEAN CORPUSCULAR HGB CONC 33 g/dL (32-36); MEAN CORPUSCULAR VOLUME 80 fL (80-99); MEAN PLATELET VOLUME 9.5 fL (9.0-12.2); MONOCYTES # (AUTO) 0.7 10^3/uL (0.0-1.0); MONOCYTES % (AUTO) 6 % (0-12); NEUTROPHILS # (AUTO) 10.4 10^3/uL (1.8-7.8); NEUTROPHILS % (AUTO) 80 % (42-75); PLATELET COUNT 138 10^3/uL (130-400)
[2023-03-17 05:57] LABS: ALBUMIN 3.6 GM/DL (3.2-4.5); BILIRUBIN,TOTAL 0.7 MG/DL (0.1-1.0); CALCIUM 9.4 MG/DL (8.5-10.1); CREATININE SERUM 1.46 MG/DL (0.60-1.30); MAGNESIUM 2.6 MG/DL (1.6-2.4); POTASSIUM 4.5 MMOL/L (3.6-5.0); TOTAL PROTEIN 6.9 GM/DL (6.4-8.2)
[2023-03-17] MEDS: POTASSIUM CL 10MEQ/50ML IVPB 50 ML IV SCH (05:59)
[2023-03-17] MEDS: MAGNESIUM 1 GM/100 ML IVPB 100 ML IV SCH (05:59)
[2023-03-17] MEDS: POTASSIUM CHLORIDE 20 MEQ TABLET PO SCH (06:00)
[2023-03-17] MEDS: inSUlin (REGULAR) HUMAN 1 UNIT/0.01 ML (CHARGE PER UNIT) SC SCH ×4 (06:08→21:21)
[2023-03-17] MEDS: inSUlin ASPART 1 UNIT/0.01 ML (PER UNIT) SC SCH ×4 (06:08→21:20)
[2023-03-17] MEDS: CEFEPIME 1,000 MG/NS 50 ML IVPB IV SCH ×6 (06:09→21:19)
--- NOTE | 2023-03-17 06:36 | Progress Note - Hospitalist ---
Subjective HPI/CC On Admission Date Seen by Provider: Mar 17, 2023 Time Seen by Provider: 11:00 CC: AMS with acute resp failure requiring biPAP HPI: This is a 72yoWF [place] patient of [facility] who presented to the ER with AMS and f ound to be in acute resp failure requiring biPAP and treatment for AECOPD along with PNA initiated. Currently she is off biPAP and back to her baseline mentation. Hyperglycemia from IV steroids are noted so aggressive insulin initiated. Subjective/Events-last exam Patient doing much better Dementia precludes anything but a poor prognosis long-term Blood sugar still high so we will increase Levemir at night Novolin are still given at 10 units before meals Focused Exam Time of Focused Exam: 17:50 Objective Exam Vital Signs Vital Signs Date Time Temp Pulse Resp B/P (MAP) Pulse Ox O2 Delivery O2 Flow Rate FiO2 03/17/23 11:41 36.4 83 16 179/83 (115) 95 Nasal Cannula 3.00 03/17/23 09:23 32 Capillary Refill : General Appearance: No Apparent Distress, WD/WN, Chronically ill Respiratory: Lungs Clear Cardiovascular: Regular Rate, Rhythm Neurologic/Psychiatric: Alert, Disoriented Results/Procedures Lab Laboratory Tests 03/17/23 05:25 Patient resulted labs reviewed. 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
[2023-03-17] MEDS: SENNOSIDES 8.6 MG TABLET PO SCH ×2 (08:11→19:55)
[2023-03-17] MEDS: PANTOPRAZOLE INJECTION 40 MG VIAL IV SCH (08:11)
[2023-03-17] MEDS: DOCUSATE SODIUM 100 MG CAPSULE PO SCH ×2 (08:11→19:54)
[2023-03-17] MEDS: dexAMETHasone INJ 4 MG/ML SDV IV SCH (08:11)
[2023-03-17] MEDS: meTOprolol TARTRATE (IR) 50 MG TABLET PO SCH ×2 (08:12→21:19)
[2023-03-17] MEDS: MICONAZOLE 2% POWDER 90 GM TOP SCH ×2 (08:12→21:19)
[2023-03-17] MEDS: ENOXAPARIN 40 MG/0.4 ML SYRINGE SC SCH (08:12)
[2023-03-17] MEDS ORDERED: inSUlin DETERMIR 1 UNIT/0.01 ML (CHARGE PER UNIT) SQ SCH (21:00)
[2023-03-18 03:22] VITALS: BP 157/80
[2023-03-18] MEDS ORDERED: VANCOMYCIN INJECTION 0.1 MG in NS (IVPB) 250 ML 250 ML IV SCH (05:00)
[2023-03-18] MEDS ORDERED: VANCOMYCIN 1500MG/300ML PREMIX IV ONE (05:30)
[2023-03-18 05:33] LABS: BASOPHILS % (AUTO) 0 % (0-10); EOSINOPHILS # (AUTO) 0.1 10^3/uL (0.0-0.3); EOSINOPHILS % (AUTO) 1 % (0-10); HEMATOCRIT 45 % (35-52); HEMOGLOBIN 14.7 g/dL (11.5-16.0); LYMPHOCYTES # (AUTO) 2.9 10^3/uL (1.0-4.0); LYMPHOCYTES % (AUTO) 19 % (12-44); MEAN CORPUSCULAR HEMOGLOBIN 26 pg (25-34); MEAN CORPUSCULAR HGB CONC 33 g/dL (32-36); MEAN CORPUSCULAR VOLUME 79 fL (80-99); MEAN PLATELET VOLUME 9.8 fL (9.0-12.2); MONOCYTES % (AUTO) 7 % (0-12); NEUTROPHILS # (AUTO) 11.1 10^3/uL (1.8-7.8); NEUTROPHILS % (AUTO) 72 % (42-75); PLATELET COUNT 181 10^3/uL (130-400); WHITE BLOOD COUNT 15.5 10^3/uL (4.3-11.0)
[2023-03-18 05:49] LABS: ALBUMIN 3.6 GM/DL (3.2-4.5); BILIRUBIN,TOTAL 0.7 MG/DL (0.1-1.0); CALCIUM 9.9 MG/DL (8.5-10.1); CREATININE SERUM 1.44 MG/DL (0.60-1.30); MAGNESIUM 2.5 MG/DL (1.6-2.4); POTASSIUM 4.2 MMOL/L (3.6-5.0); TOTAL PROTEIN 6.9 GM/DL (6.4-8.2)
[2023-03-18] MEDS: POTASSIUM CL 10MEQ/50ML IVPB 50 ML IV SCH (06:01)
[2023-03-18] MEDS: MAGNESIUM 1 GM/100 ML IVPB 100 ML IV SCH (06:01)
[2023-03-18] MEDS: inSUlin ASPART 1 UNIT/0.01 ML (PER UNIT) SC SCH ×2 (06:01→11:20)
[2023-03-18] MEDS: POTASSIUM CHLORIDE 20 MEQ TABLET PO SCH (06:01)
[2023-03-18 06:09] LABS: SMEAR SCAN COMMENT YES
[2023-03-18] MEDS: inSUlin (REGULAR) HUMAN 1 UNIT/0.01 ML (CHARGE PER UNIT) SC SCH ×2 (06:12→11:20)
[2023-03-18] MEDS: RT-ALBUTEROL SULF 2.5 MG/3 ML PRE-MIX VIAL INH SCH (06:55)
[2023-03-18 07:41] VITALS: BP 176/102
[2023-03-18] MEDS: PANTOPRAZOLE INJECTION 40 MG VIAL IV SCH (09:07)
[2023-03-18] MEDS: MICONAZOLE 2% POWDER 90 GM TOP SCH (09:08)
[2023-03-18] MEDS: meTOprolol TARTRATE (IR) 50 MG TABLET PO SCH (09:08)
[2023-03-18] MEDS: dexAMETHasone INJ 4 MG/ML SDV IV SCH (09:08)
[2023-03-18] MEDS: SENNOSIDES 8.6 MG TABLET PO SCH (09:08)
[2023-03-18] MEDS: DOCUSATE SODIUM 100 MG CAPSULE PO SCH (09:08)
[2023-03-18] MEDS: ENOXAPARIN 40 MG/0.4 ML SYRINGE SC SCH (09:08)
[2023-03-18] MEDS ORDERED: ROSU20TA73 PO (10:31)
[2023-03-18] MEDS ORDERED: GLIM4TAB5 PO (10:31)
[2023-03-18] MEDS ORDERED: PANT20TA2 PO (10:31)
[2023-03-18] MEDS ORDERED: BUME2TAB7 PO (10:31)
[2023-03-18] MEDS ORDERED: FERR325T18 PO (10:31)
[2023-03-18] MEDS ORDERED: ASPI-999 PO (10:31)
[2023-03-18] MEDS ORDERED: METO50TA15 PO (10:32)
[2023-03-18] MEDS ORDERED: INSU100V42 SQ (10:32)
[2023-03-18] MEDS ORDERED: AMLO-250 PO (10:32)
[2023-03-18] MEDS ORDERED: TRAM50TA3 PO (10:32)
[2023-03-18] MEDS ORDERED: MICO90PO TOP (10:32)
[2023-03-18] MEDS ORDERED: ESCI20TA39 PO (10:32)
[2023-03-18] MEDS ORDERED: CARB10DR OD (10:32)
[2023-03-18] MEDS ORDERED: DICL100G60 TP (10:32)
[2023-03-18] MEDS ORDERED: GUAI600T43 PO (10:32)
[2023-03-18] MEDS ORDERED: EMPA25TA PO (10:32)
[2023-03-18] MEDS ORDERED: PREG150C47 PO (10:32)
[2023-03-18] MEDS ORDERED: ALB0.5V INH (10:32)
[2023-03-18] MEDS ORDERED: INSU300I3 SC (10:32)
--- NOTE | 2023-03-18 10:33 | Discharge Summary ---
Discharge Summary Hospital Course Was the Problem List Reviewed?: Yes Problems/Dx: (1) Delirium due to another medical condition Status: Acute (2) UTI (urinary tract infection) Status: Acute (3) Dementia Status: Chronic Hospital Course Date of Admission: Mar 13, 2023 at 18:35 Admission Diagnosis : [facility] Date of Discharge: 03/18/23 Discharge Diagnosis: [ ] Hospital Course: Lengthy hospital course after he was admitted for altered mental status superimposed with dementia placed on empiric antibiotics for pneumonia his labs stabilized and patient was deemed stable for discharge back to the [facility]. Poor prognosis considering her advanced dementia. She completed antibiotics while hospitalized. Labs and Pending Lab Test: Laboratory Tests 03/17/23 10:53: Glucometer 282H 03/17/23 15:35: Glucometer 289H 03/17/23 19:20: Glucometer 214H 03/18/23 05:03: White Blood Count 15.5H, Red Blood Count 5.63H, Hemoglobin 14.7, Hematocrit 45, Mean Corpuscular Volume 79L, Mean Corpuscular Hemoglobin 26, Mean Corpuscular Hemoglobin Concent 33, Red Cell Distribution Width 15.0H, Platelet Count 181, Mean Platelet Volume 9.8, Immature Granulocyte % (Auto) 2, Neutrophils (%) (Auto) 72, Lymphocytes (%) (Auto) 19, Monocytes (%) (Auto) 7, Eosinophils (%) (Auto) 1, Basophils (%) (Auto) 0, Neutrophils # (Auto) 11.1H, Lymphocytes # (Auto) 2.9, Monocytes # (Auto) 1.0, Eosinophils # (Auto) 0.1, Basophils # (Auto) 0.0, Immature Granulocyte # (Auto) 0.4H, Sodium Level 138, Potassium Level 4.2, Chloride Level 106, Carbon Dioxide Level 21, Anion Gap 11, Blood Urea Nitrogen 51H, Creatinine 1.44H, Estimat Glomerular Filtration Rate 38, BUN/Creatinine Ratio 35, Glucose Level 140H, Calcium Level 9.9, Corrected Calcium 10.2H, Magnesium Level 2.5H, Total Bilirubin 0.7, Aspartate Amino Transf (AST/SGOT) 28, Alanine Aminotransferase (ALT/SGPT) 23, Alkaline Phosphatase 56, Total Protein 6.9, Albumin 3.6, Smear Scan YES Microbiology 03/13/23 Blood Culture - Preliminary, Resulted 03/13/23 Urine Culture - Preliminary, Resulted Enterococcus faecalis Home Meds Active Lotrimin AF (Miconazole Nitrate) 2 % Powder 0 Gm TOP BID twice daily Insulin Aspart 100 Unit/Ml Vial 20 Unit SQ AC Albuterol Sulfate 2.5 Mg/0.5 Ml Vial.neb 2.5 Mg INH TID Jardiance (Empagliflozin) 25 Mg Tablet 25 Mg PO DAILY Pregabalin 150 Mg Capsule 150 Mg PO 0800,1400,1999 Amlodipine Besylate 5 Mg Tablet 5 Mg PO DAILY Metoprolol Tartrate 50 Mg Tablet 50 Mg PO BID Toujeo Max Solostar (Insulin Glargine,Hum.rec.anlog) 300 Unit/Ml (3 Ml) Insuln.pen 50 Units SC 799,1999 Tramadol HCl 50 Mg Tablet 50 Mg PO Q6H PRN Refresh Optive Advanced Drops (Carboxymethyl/Glycerin/Poly80) 0.5 %-1 %-0.5 % Drops 1 Drop OD QID Diclofenac Sodium 1 % Gel..gram. 4 Gm TP TID MDD 16GM APPLY TO LEFT KNEE Mucinex (Guaifenesin) 600 Mg Tab.er.12h 600 Mg PO BID Escitalopram Oxalate 20 Mg Tablet 20 Mg PO DAILY Glimepiride 4 Mg Tablet 4 Mg PO DAILY Protonix (Pantoprazole Sodium) 20 Mg Tablet.dr 20 Mg PO DAILY Rosuvastatin Calcium 20 Mg Tablet 20 Mg PO DAILY Bumetanide 2 Mg Tablet 2 Mg PO DAILY Ferrous Sulfate 325 Mg (65 Mg Iron) Tablet 325 Mg PO DAILY Aspirin 81 Mg Tab.chew 81 Mg PO DAILY Reported Cephalexin 500 Mg Capsule 500 Mg PO TID START DATE: 03-13-2023 #09/11 DAY SUPPLY END DATE: 03-20-2023 Tylenol Extra Strength (Acetaminophen) 500 Mg Tablet 1,000 Mg PO Q6H PRN Guaifenesin Dm Syrup (Guaifenesin/Dextromethorphan) 100 Mg-10 Mg/5 Ml Syrup 10 Ml PO Q4H PRN Ventolin Hfa (Albuterol Sulfate) 90 Mcg Hfa.aer.ad 2 Puff INH Q6H PRN Albuterol Sulfate 2.5 Mg/0.5 Ml Vial.neb 2.5 Mg INH Q4H PRN Novolog Flexpen (Insulin Aspart) 100 Unit/Ml (3 Ml) Solution Units SQ AC CORRECTION SCALE: 200-250=13 UNITS 251-300=25 UNITS 301-350=38 UNITS 351-400=51 UNITS 401-450=64 UNITS 451-500=77 UNITS 501-550=90 UNITS Imodium A-D (Loperamide HCl) 2 Mg Capsule 2-4 Mg PO Q3H PRN TAKES 1 TO 2 (2MG) TABS Acetaminophen Extra Strength (Acetaminophen) 500 Mg Tablet 1,000 Mg PO BID TAKES 2 (500MG) TABS Vitamin D3 (Cholecalciferol (Vitamin D3)) 125 Mcg Capsule 125 Mcg PO DAILY Cyanocobalamin Injection (Cyanocobalamin) 1,000 Mcg/Ml Inj 1,000 Mcg IM MONTHLY Assessment/Pt Instructions PCP in 1 week Discharge Planning: <30 minutes discharge planning Discharge Instructions Discharge Diet: No Restrictions, ADA Diet Activity as Tolerated: Yes Discharge Physical Examination Vital Signs Vital Signs Date Time Temp Pulse Resp B/P (MAP) Pulse Ox O2 Delivery O2 Flow Rate FiO2 03/18/23 08:00 Room Air 03/18/23 07:41 36.4 86 17 176/102 (126) 94 03/18/23 03:22 0.00 0.00 03/17/23 09:23 32 General Appearance: No Apparent Distress, WD/WN, Chronically ill Allergies: Coded Allergies: Tetanus Vaccines and Toxoid (Unverified Allergy, Severe, 12/17/11) SWOLLEN HOT RED ARM ampicillin (Unverified Allergy, Unknown, 12/20/15) dulaglutide (Unverified Allergy, Unknown, 06/16/21) lisinopril (Verified Allergy, Unknown, Unknown, 03/18/23) simvastatin (Verified Allergy, Unknown, muscle pain, 03/18/23) Discharge Summary Date of Admission Mar 13, 2023 at 18:35 Date of Discharge Discharge Date: Mar 18, 2023 Admission Diagnosis Assessment: Acute hypoxic resp failure requiring biPAP PNA 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
--- NOTE | 2023-03-18 10:33 | Discharge Inst-Skilled Nursing ---
Discharge [facility]-Skilled NF Reconcile Patient Problems Problems Reviewed?: Yes Chief Complaint CC: AMS with acute resp failure requiring biPAP HPI: This is a 72yoWF NH patient of [facility] who presented to the ER with AMS and found to be in acute resp failure requiring biPAP and treatment for AECOPD along with PNA initiated. Currently she is off biPAP and back to her baseline mentation. Hyperglycemia from IV steroids are noted so aggressive insulin initiated. Patient Instructions Patient Problems: PNA Goal: Chambers Consult/Follow Up/Orders Follow Up Appt.: NH rounds [facility] Skilled NF Admit to: [facility] Certification ([facility]) I certify that SNF services are required to be given on an inpatient basis because of the above named patient's need for nursing home care on a continuing basis for the conditions(s) for which he/she was receiving inpatient hospital services prior to his/her transfer to the [facility]. Intermediate Facility Order: Nursing Services, Site Technician-Evaluate & Treat, Physical Therapy-Evaluate & Treat Oxygen Delivery Method: Room Air Discharge Diet: ADA Diet Resuscitation Status: Full Code New & Resume Previous Orders New Medications: Miconazole Nitrate (Lotrimin AF) 2 % Powder 0 GM TOP BID, #1 EA twice daily Changed Medications: Ferrous Sulfate (Ferrous Sulfate) 325 Mg (65 Mg Iron) Tablet 325 MG PO DAILY, #30 TAB (Changed from: Ferrous Sulfate 325 Mg Tablet 325 Mg PO DAILY) Continued Medications: Acetaminophen (Acetaminophen Extra Strength) 500 Mg Tablet 1000 MG PO BID, TAB TAKES 2 (500MG) TABS Acetaminophen (Tylenol Extra Strength) 500 Mg Tablet 1000 MG PO Q6H PRN for PAIN-MILD (1-4) OR TEMPATURE, TAB Albuterol Sulfate (Albuterol Sulfate) 2.5 Mg/0.5 Ml Vial.neb 2.5 MG INH Q4H PRN for SHORTNESS OF BREATH, EACH Albuterol Sulfate (Ventolin Hfa) 90 Mcg Hfa.aer.ad 2 PUFF INH Q6H PRN for SHORTNESS OF BREATH, EA Albuterol Sulfate (Albuterol Sulfate) 2.5 Mg/0.5 Ml Vial.neb 2.5 MG INH TID, #90 EACH (This prescription has been renewed) Amlodipine Besylate (Amlodipine Besylate) 5 Mg Tablet 5 MG PO DAILY, #30 TAB (This prescription has been renewed) Aspirin (Aspirin) 81 Mg Tab.chew 81 MG PO DAILY, #30 TAB (This prescription has been renewed) Bumetanide (Bumetanide) 2 Mg Tablet 2 MG PO DAILY, #30 TAB (This prescription has been renewed) Carboxymethyl/Glycerin/Poly80 (Refresh Optive Advanced Drops) 0.5 %-1 %-0.5 % Drops 1 DROP OD QID, #1 EACH (This prescription has been renewed) Cholecalciferol (Vitamin D3) (Vitamin D3) 125 Mcg Capsule 125 MCG PO DAILY, CAP Cyanocobalamin (Cyanocobalamin Injection) 1,000 Mcg/Ml Inj 1000 MCG IM MONTHLY, VIAL Diclofenac Sodium (Diclofenac Sodium) 1 % Gel..gram. 4 GM TP TID MDD 16GM, #1 TUBE (This prescription has been renewed) APPLY TO LEFT KNEE Empagliflozin (Jardiance) 25 Mg Tablet 25 MG PO DAILY, #30 TAB (This prescription has been renewed) Escitalopram Oxalate (Escitalopram Oxalate) 20 Mg Tablet 20 MG PO DAILY, #30 TAB (This prescription has been renewed) Glimepiride (Glimepiride) 4 Mg Tablet 4 MG PO DAILY, #30 TAB (This prescription has been renewed) Guaifenesin (Mucinex) 600 Mg Tab.er.12h 600 MG PO BID, #60 TAB (This prescription has been renewed) Guaifenesin/Dextromethorphan (Guaifenesin Dm Syrup) 100 Mg-10 Mg/5 Ml Syrup 10 ML PO Q4H PRN for COUGH, ML Insulin Aspart (Novolog Flexpen) 100 Unit/Ml (3 Ml) Solution UNITS SQ AC, EA CORRECTION SCALE: 200-250=13 UNITS 251-300=25 UNITS 301-350=38 UNITS 351-400=51 UNITS 401-450=64 UNITS 451-500=77 UNITS 501-550=90 UNITS Insulin Aspart (Insulin Aspart) 100 Unit/Ml Vial 20 UNIT SQ AC, #1 EA (This prescription has been renewed) Insulin Glargine,Hum.rec.anlog (Toujeo Max Solostar) 300 Unit/Ml (3 Ml) Insuln.pen 50 UNITS SC 0800,1999, #1 EACH (This prescription has been renewed) Loperamide HCl (Imodium A-D) 2 Mg Capsule 2-4 MG PO Q3H PRN for LOOSE STOOLS, CAP TAKES 1 TO 2 (2MG) TABS Metoprolol Tartrate (Metoprolol Tartrate) 50 Mg Tablet 50 MG PO BID, #60 TAB (This prescription has been renewed) Pantoprazole Sodium (Protonix) 20 Mg Tablet.dr 20 MG PO DAILY, #30 TAB (This prescription has been renewed) Pregabalin (Pregabalin) 150 Mg Capsule 150 MG PO 0800,1400,2000, #90 CAP (This prescription has been renewed) Rosuvastatin Calcium (Rosuvastatin Calcium) 20 Mg Tablet 20 MG PO DAILY, #30 TAB (This prescription has been renewed) Tramadol HCl (Tramadol HCl) 50 Mg Tablet 50 MG PO Q6H PRN for PAIN-MODERATE (5-7), #20 TAB (This prescription has been renewed) Discontinued Medications: Cephalexin (Cephalexin) 500 Mg Capsule 500 MG PO TID, CAP START DATE: 03-13-2023 #21/7 DAY SUPPLY END DATE: 03-20-2023 Vesta Arango Mar 18, 2023 10:33 VESTA ARANGO DO Mar 18, 2023 10:33
[2023-03-18 12:16] VITALS: BP 156/97
[2023-03-18 14:22] VITALS: BP 156/97
[2023-03-18] MEDS ORDERED: VANCOMYCIN 1 GM/NS 250 ML IVPB IV SCH ×2 (21:00)
[2023-03-19] MEDS ORDERED: TROUGH ORDER-PHARMACY XX ONE (20:00)
--- NOTE | 2023-03-20 01:32 | Physician Query Clarification ---
PQ-Uncertain Diagnosis Admission/Discharge Admission Date: Mar 13, 2023 at 18:35 Discharge Date: Mar 18, 2023 at 14:24 The medical record reflects the following clinical scenario: History/Risk Factors: A 72 years old female patient admitted with altered mental status, severe sepsis was documented in medical record. Hand P, 03/14: Acute hypoxic respiratory failure, pneumonia, diabetes out of control due to steroids. Tele- ICU progress notes, 03/16: Severe sepsis, UTI, LLE cellulitis, acute hypoxic respiratory failure. Clinical Findings: Wbc - 11.6 H, temp - 39.5, pulse - 86. Treatment: IV antibiotics. Question: Is sepsis a clinically valid diagnosis? Sepsis was documented in the tele ICU progress notes, 03/16 with no further documentation in the medical record. Please document a response in Progress Note or Discharge Summary. 1. Yes, clinically valid, condition resolved. 2. No, condition ruled out. 3. Other, with explanation of clinical findings. 4. Undetermined, no explanation for clinical findings. PHYSICIAN RESPONSE Diagnosis clinically valid: Yes, Conditon resolved In responding to this query, please exercise your independent professional judgment. The purpose of this communication is to more accurately reflect the complexity of your patients condition. The fact that a question is asked does not imply that any particular answer is desired or expected. Thank you for your timely response to this clarification. Requestors name: [ ] Phone # [ ] THIS PHYSICIAN QUERY FORM IS A PERMANENT PART OF THE MEDICAL RECORD KELLI MATHIAS Mar 20, 2023 01:32 GUADALUPE AUSTIN DO Mar 20, 2023 04:10
[2023-03-20] MEDS ORDERED: TROUGH ORDER-PHARMACY XX ONE (20:00)
== END 2023-03-18 14:24 | DRG 871 ==
LOC: EDUNIT# 15:01 → ER 15:02 → ICU 18:35 → 4TH 03-15 15:19
PROVIDERS: ADMIT Internal Medicine; ATTEND Internal Medicine
DX: A41.9 Sepsis, unspecified organism (principal); J18.9 Pneumonia, unspecified organism; J96.01 Acute respiratory failure with hypoxia; N39.0 Urinary tract infection, site not specified; J44.1 Chronic obstructive pulmonary disease with (acute) exacerbation; J44.0 Chronic obstructive pulmonary disease with (acute) lower respiratory infection; N17.9 Acute kidney failure, unspecified; L03.116 Cellulitis of left lower limb; F03.90 Unspecified dementia, unspecified severity, without behavioral disturbance, psychotic disturbance, mood disturbance, and anxiety; R65.20 Severe sepsis without septic shock; E11.65 Type 2 diabetes mellitus with hyperglycemia; T38.0X5A Adverse effect of glucocorticoids and synthetic analogues, initial encounter; Z79.82 Long term (current) use of aspirin; Z79.4 Long term (current) use of insulin; Z79.899 Other long term (current) drug therapy; I25.10 Atherosclerotic heart disease of native coronary artery without angina pectoris; N18.9 Chronic kidney disease, unspecified; F32.A Depression, unspecified; E11.22 Type 2 diabetes mellitus with diabetic chronic kidney disease; F41.9 Anxiety disorder, unspecified; G89.29 Other chronic pain; E78.00 Pure hypercholesterolemia, unspecified; M81.0 Age-related osteoporosis without current pathological fracture; Z11.52 Encounter for screening for COVID-19; D63.1 Anemia in chronic kidney disease
CPT/HCPCS: 36415; 36600; 51702; 70450; 71045; 80053; 81000; 82805; 82947; 83605; 83735; 83880; 84100; 85007; 85025; 85027; 85379; 85610; 85730; 86141; 87040; 87077; 87088; 87186; 87636; 94640; 94660; 94760; 96361; 96365; 96375